=== PATIENT | female | born 1960 | race Caucasian/White ===

== ENCOUNTER 2024-04-14 10:47 | Inpatient (IN) ==
--- NOTE | 2024-04-14 10:59 | History & Physical Report ---
Date of Service April 14, 2024 Assessment & Plan (1) COPD with acute exacerbation: Plan: COPD with acute exacerbation Arrived on continuous BiPAP 08/23 at 40% VBG 7.36/75/54/42 On Rocephin/azithromycin on arrival for potential superimposed pneumonia with COPD exacerbation from outside hospital. Unable to load the images as an unsupported format, but reports some concern for pneumonia. Ernesto labs and evaluation there is no leukocytosis, procalcitonin is neg ative, and chest x-ray with PA/lateral is without evidence of lobar pneumonia. Patient is with compensated pH with pCO2 of 75 and HCO3 of 42 suggesting severe chronic hypercapnia. Would benefit from PPV at bedtime Scattered wheezing on admission Patient received ceftriaxone, azithromycin, and 125 mg of methylprednisolone at approximately 6 AM on 04/14/2024 at OSH. Continue azithromycin, 40 mg methylprednisolone daily Flutter valve, incentive spirometry, SpO2 goal greater than 90%, BiPAP as needed. Trelegy converted to formulary equivalent Does not show significant pulmonary edema/volume overload. Lactate is downtrending from OSH, but still elevated; additional liter of fluid given. Lactate trended She reports that she has been a smoker of 1 pack/day, has recently cut down t rying to quit. Would like a patch. Ordered (2) History of pulmonary embolism: Plan: History of PE. She is on Eliquis with which she is compliant and reports took her last dose morning of 04/14/2024 (3) DM2 (diabetes mellitus, type 2): Plan: Metforminheld Hyperglycemic. No insulin documented as given at OSH, did receive steroids Basal bolus insulin ordered with first dose of both at time of admit. Goal BSG [id number] Pharmacy glycemic consult placed for hyperglycemia with steroid use (4) Anxiety and depression: Plan: Continue bupropion/Lexapro Plan DVT prophylaxis: Anticoagulated Diet: N.p.o. until able to be taken off BiPAP, then type II DM/heart healthy Disposition: PCU CODE STATUS: Full code History of Present Illness Edna is a 63-year-old female who was accepted as a transfer overnight from [facility] for acute COPD exacerbation. Do not have records available for review. Did call [facility] day of transfer to review case. Per nursing report patient is 63-year-old with a history of chronic hypoxic respiratory failure, past PE on Eliquis who presented with 2 days of increased cough and shortness of breath. She required BiPAP at 10/535%. COVID/Flu negative. Suspected [facility] COPD exacerbation. They are not able to keep patients on BiPAP at that facility and so was recommended for transfer to our facility. At time of morning signout patient blood pressure had improved from 96/76 to 116/64. Lactate was 2.6 initially, repeat 2.2 at 905. BNP 91, high sensitive troponin 21. COVID and flu were negative. Chest x-ray was pending. Patient was on empiric ceftriaxone/azithromycin. Complete records pending fax for review Per Record Review: Past medical history: COPD Past medications reviewed: Albuterol, bupropion 300 mg XL daily, Eliquis 5 mg twice daily, Lexapro 20 mg daily, Lasix 80 mg twice daily, melatonin 3 mg nightly, metformin 500 mg twice daily, prednisone 40 mg daily with unclear duration/taper, Trelegy 100 mcg62.5 mcg - 25 mcg/puff, 1 inhalation daily Approximate 1 pack/day cigarette use x 50 years. No reported alcohol use 63yo F who presented to [facility] with 2 days of progressive dyspnea without chest pain, fever, or chills. Past hx of COPD on Trelegy/albuterol and chronic home oxygen, DVT/PE on eliquis and anxiety/depression. EKG at [place]: Rate 87, sinus, no ST/T changes. CXR: Suspected right lower lobe infiltrate on CXR, given rocephin and azithromycin in ER. Pt clinically improved following abx and fluids, but still required 10/5 35% bipap. Pt declined [facility], preferred [facility] ot [facility]. [facility] with no capacity. Confirmed patient recieved AM meds including eliquis 5mg, and rocephin/azithromycin at ~0600am 04/14/24. Per Patient: Seen at bedside. On continuous bipap. NOndistressed. 114/41, 84bpm, 95% on 10/5 @ 40% at bedside asessment. BSG POC 314. 93.7kg She reports that she had around 2 or 3 days of increased cough, shortness of breath, and dark sputum production. Endorses wheezing. She denies fever, chills, sweats. No lightheadedness/dizziness. She has been taking her blood thinner for a past PE, she reports she took a dose of this this morning. She has not had any pain with breathing. Denies chest pain. She reports she feels greatly improved at time of bedside assessment on BiPAP. She endorses history of COPD. She is a somewhat poor historian of her meds, but endorses that she takes albuterol, Eliquis, bupropion, cetirizine, Lexapro, Trelegy, Lasix, metformin at home. She is not sure if she has a history of heart failure or not but she does take Lasix twice daily at home. Denies alcohol use Medical History: Reviewed Medications: Reviewed Surgical History: Reviewed Family history: Reviewed Allergies: Reviewed Social: No alcohol. Endorses that she was around 10 cigarettes to pack per day tobacco user, has cut down and stop smoking since being sick. Would like a patch Code Status: Full Allergies Allergy/AdvReac Type Severity Reaction Status Date / Time venom-honey bee Allergy Itching Verified 04/14/24 13:08 Home Medications Medication Instructions Recorded Confirmed Type albuterol sulfate 90 mcg/actuation 1 puff inhalation Q6H PRN Wheezing 04/14/24 04/14/24 History aerosol inhaler apixaban 5 mg tablet (Eliquis) 5 mg PO BID 04/14/24 04/14/24 History bupropion HCl 300 mg 24 hr tablet, 300 mg PO DAILY 04/14/24 04/14/24 History extended release cetirizine 10 mg tablet 10 mg PO DAILY 04/14/24 04/14/24 History escitalopram oxalate 20 mg tablet 20 mg PO DAILY 04/14/24 04/14/24 History fluticasone fur. 100 mcg-umeclid 1 inh inhalation DAILY 04/14/24 04/14/24 History 62.5 mcg-vilant 25 mcg inhalat.powder (Trelegy Ellipta) furosemide 80 mg tablet 80 mg PO BID 04/14/24 04/14/24 History melatonin 3 mg tablet 3 mg PO HS PRN Sleep 04/14/24 04/14/24 History metformin 500 mg tablet 500 mg PO BID 04/14/24 04/14/24 History Past Med/Surg History Problem List (Updated 04/14/24 @ 14:48 by Jet Gregory MD) Anxiety and depression DM2 (diabetes mellitus, type 2) History of pulmonary embolism COPD with acute exacerbation Social History (Updated 04/14/24 @ 14:57 by Jet Gregory MD) Smoking Status: Former smoker Tobacco Type: Cigarettes Hx Alcohol Use: No Hx Substance Use: No Preferred Language: Lao [employer] Required: No Beliefs That Will Affect Care: None Current Living Situation: Other Feels Safe at Home: Yes Assistive Devices: Oxygen - Continuous and Walker Physical Exam Physical Exam: General: A&Ox3. NAD. Cooperative. HEENT: Atraumatic, normocephalic. Vision/hearing intact Pulm: On BiPAP. Diminished with diffuse wheezes symmetrical chest rise. No increased work of breathing. No respiratory distress. Cardiac: RRR, -mrg. Radial pulses intact and symmetrical. Abdominal: Softly distended. Nontender. No rebound/guarding PG Care Time/CCT Total # of Minutes Spent Total Time Spent with Patient: Total time spent is greater than 50% in coordination of care (as documented) at patient's floor/unit and/or counseling patient: Coding Level of Care Code 37532 INT INP/OBS CARE MIN Diagnoses COPD with acute exacerbation J44.1 History of pulmonary embolism Z86.711 DM2 (diabetes mellitus, type 2) E11.9 Anxiety and depression F41.9; F32.A
[2024-04-14] MEDS ORDERED: Patient's ALLERGY Info needs ENTERED ONE (11:15)
--- OUTSIDE RECORDS SUMMARY | 2024-04-14 12:51 | External Medical Summary | Summary of Care ---
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 Diabetic Foot Exam 02/12/2025 02/13/2024 CKD PHOS USE SMARTSET 66941 03/09/202502/18, 12/19/2023, 09/12/2023, Additional history exists CKD HGB USE SMARTSET 62469 03/11/202503/11, 03/10/2024, 03/09/2024, Additional history exists O2 ASSESSMENT COMPLETED IN PAST YEAR FOR COPD 03/25/2025 03/25/2024 Lipid Panel 04/19/2027 04/19/2022, 12/21, 01/21/2021, Additional history exists Cervical Cancer Screening Discontinued Pap Smear Discontinued 10/10/2016, 10/21, 11/17/2013, Additional history exists Pneumococcal Vaccine: 65+ Years Completed 05/10/2022, 11/17/2013 Lung Cancer Screening Completed 09/09/2023 , 05/22/2023, 12/15/2022, Additional history exists Influenza Vaccine (FLU shot) Completed 09/13/2023, 09/10/2019, 11/20/2017, Additional history exists GARDASIL-HPV IMMUNIZATION SERIES Aged Out No longer eligible based on patient's age to complete this topic HPV/Co-Test Discontinued Hepatitis B Aged Out No longer eligi ble based on patient's age to complete this topic MENINGOCOCCAL (MENACTRA/MENVEO) Aged Out No longer eligible based on patient's age to complete this topic documented as of this encounter Medical Devices Implanted Type Area Operations Engineer Device Identifier Shelf Expiration Date Model / Serial / Lot Lens 21.0 Vero - [id number] - [id number] Implanted:Qty: 1 on 03/25/2024 by Andrea Mcclendon, DO at OR [facility] Lens Right: Eye [employer] 06/01/2026 CNA0T0.210 / [id number] / Lens 20.5 [facility] - [id number] - [id number] Implanted:Qty: 1 on 02/26/2024 by Andrea Mcclendon, DO at OR [facility] Left: Eye [employer] 08/25/2026 CNA0T0.205 / [id number] / documented as of this encounter Visit Diagnoses Diagnosis Pseudophakia- Primary Lens replaced by other means documented in this encounter Advance Directives Latest Code Status on File Code Status Date Activated Date Inactivated Comments Full Code 03/25/2024 7:04 AM 03/25/2024 1:54 PM Question Answer Comments Discussion of Advance Directives occurred with: Not Discussed due to patient's condition Code Status History Code Status Date Activated Date Inactivated Comments Full Code 03/08/2024 6:07 PM 03/11/2024 5:39 PM This order reflects the patients wishes and were consensually agreed upon. Question Answer Comments Discussion of Advance Directives occurred with: Patient Does the patient have a Living Will? No Does the patient have Health Care Power of Silk Screen Printer? No Full Code 02/26/2024 9:19 AM 02/26/2024 4:21 PM Question Answer Comments Discussion of Advance Directives occurred with: Not Discussed due to patient's condition Limited Code 12/19/2023 4:26 PM 12/23/2023 5:26 PM This o rder reflects the patients wishes and were consensually agreed upon. Question Answer Comments Discussion of Advance Directives occurred with: Patient Does the patient have a Living Will? No Does the patient have Health Care Power of Silk Screen Printer? No Bag Valve Device? Yes Intubation? No Cardiac Compressions? Yes Defibrillation? Yes Synchronized Cardioversion? Yes External Pacemaker? Yes Cardiac Drugs? Yes Full Code 09/08/2023 4:44 PM 09/13/2023 8:48 PM Thi s order reflects the patients wishes and were consensually agreed upon. Question Answer Comments Discussion of Advance Directives occurred with: Patient Healthcare Agents on File Name Relationship Healthcare Agent [facility] p Communication Martinez GRIGSBY Adult Child First Alternate Health Care Agent Peter Seb Adult Child First Alternate Health Care Agent Jazmine Corona Adult Child First Alternate Health Care Agent Care Teams Solar Electric/Photovoltaic Installer Relationship Specialty Start Date End Date Marcos Maurice PA-C [address] [facility] [place] [address] PCP - General Physician Instructor Business Education 11/22/23 documented as of this encounter
--- OUTSIDE RECORDS SUMMARY | 2024-04-14 12:51 | External Medical Summary | Summary of Care ---
Author Name Unknown Organization [facility] Address [address] [facility] [place] [address] Phone [phone] Care Team Providers Care Taste Tester Name Role Phone Marcos Maurice PA-C Primary Care Provide r Encounter Details Date Type Department Care Team (Late st Contact Info) Description 03/26/2024 Telephone Pratibha Casey [address] [place] [address] [facility]clendon[facility] [address] [facility] [place] [address] Allergies Active Allergy Reactions Criticality Noted Date Comments Cortisone Muscle pain Medium 04/09/2017 At site of shot Bee Venom Anaphylaxis High 06/25/2021 Hydrocortisone High 12/25/2021 Other reaction(s): PAIN,UNABLE TO MOVE documented as of this encounter (statuses as of 03/26/2024) Medications Medication Sig Dispensed Refills Start Date End Date Status Acetaminophen 500 MG Oral Tablet (Tylenol) Take 1 Tablet by mouth every 6 hours as needed. 0 Active oxygen IN GASIndications:COPD, group D, by GOLD 2017 classification (HCC),Chronic hypoxemic respiratory failure (HCC) 2 LPM at bedtime & at rest & 3 LPM with all exertion via n/c DX J 44.9 1 Each 0 07/31/2022 Active Fluticasone Propionate 50 MCG/ACT Nasal Suspension (Flonase) Administer into each nostril 2 Sprays in the morning. 15.8 mL 2 09/22/2022 Active Rosuvastatin Calcium 20 MG Oral Tablet (Crestor)Indications :Cor pulmonale, chronic ([facility]),COPD, group D, by GOLD 2017 classification ([facility]),Hypertensive heart and kidney disease with chronic diastolic congestive heart failure and stage 3a chronic kidney disease ([facility]),Dyslipidemia,E ssential hypertension with goal blood pressure less than 140/90 Take by mouth 1 Tablet in the morning. 90 Tablet 3 09/22/2022 Active Empagliflozin 10 MG Oral Tablet (Jardiance)Indicatio ns:Type 2 diabetes mellitus with stage 3a chronic kidney disease, without long-term current use of insulin ([facility]) Take 1 Tablet by mouth in the morning. 30 Tablet 11 11/22/2022 Active metFORMIN HCl 1000 MG Oral Tablet (Glucophage)Indicati ons:Type 2 diabetes mellitus with stage 3a chronic kidney disease, without long-term current use of insulin ([facility]) Take 1 Tablet by mouth 2 times a day with morning and evening meals. 60 Tablet 5 11/22/2022 Active Azelastine HCl 0.1 % Nasal Solution (Astelin) Administer 1 Mesa into nostril in the morning and 1 Mesa before bedtime. 30 mL 12 01/12/2023 Active Furosemide 80 MG Oral Tablet (Lasix)Indications:G eneralized osteoarthritis,Chron ic diastolic heart failure ([facility]) Take 1 Tablet by mouth [...] and 1 Tablet before bedtime. 60 Tablet 5 01/02/2024 Active traZODone HCl 100 MG Oral Tablet (Desyrel) Take 1 Tablet by mouth at bedtime. 30 Tablet 5 01/02/2024 Active Sertraline HCl 100 MG Oral Tablet (Zoloft)Indications: MARCIE (generalized anxiety disorder),Recurrent major depressive disorder, in partial remission (HCC) Take 1 Tablet by mouth in the morning. 90 Tablet 3 01/02/2024 Active Nicotine 21 MG/24HR Transdermal Patch 24 Hour (Nicoderm CQ)Indications:COPD exacerbation ([facility]),Tobacco use disorder Place 1 Patch over 24 hours topically on the skin in the morning. On upper body/upper arm, change once a day for 6 weeks.. 42 Patch 1 01/18/2024 Active Additional Information Patient not taking.Reported on 03/25/2024 Albuterol Sulfate (2.5 MG/3ML) 0.083% Inhalation Nebulization Solution (Proventil)Indicatio ns:COPD, group D, by GOLD 2017 classification ([facility]) Inhale 1 Vial via nebulizer every 4 hours as needed for Wheezing or Shortness of Breath. 180 mL 01/31/2024 Active Albuterol Sulfate (2.5 MG/3ML) 0.083% Inhalation Nebulization Solution (Proventil)Indicatio ns:COPD, group D, by GOLD 2017 classification ([facility]) Inhale 1 Vial via nebulizer every 4 hours as needed for Wheezing or Shortness of Breath. 180 mL 01/31/2024 Active prednisoLONE Acetate 1 % Ophthalmic [...] as of this encounter (statuses as of 03/26/2024) Active Problems Problem Noted Date Diagnosed Date [...] - TRES o Class D - Inhaled Qczbqtpasosrhe-DWSP-[id number] Combination Inhaler (Trellegy) o PD-4 Inhibitor (Daliresp) [...] Continue eliquis Personal history of pulmonary embolism 2 Overview: 02/28/22 Pulmonary note Pt hospitalized from [...] Assessment & Plan: Continue furosemide. Followed by pulm Chronic hypoxemic respiratory failure 04/21/2021 Last Assessment & Plan: She is wearing 4.5L today, typically wears 3L. No distress. ADALI gave pulse oximeter to monitor SpO2, advised to contact [facility] if <90% and titrate as necessary, Tobacco use disorder 04/21/2021 Last Assessment & Plan: Referral to [facility] for assistance in getting nicoderm patches covered [...] Last Assessment & Plan: Currently followed by railroad passenger agent--not on any antihistamines currently, has follow up [...] as of this encounter (statuses as of 03/26/2024) Resolved Problems Problem Noted Date Diagnosed Date [...] failure and stage 3a chronic kidney disease 04/14/2021/0 02/2024 Last Assessment & Plan: Current Status: [...] - TRES o Class D - Inhaled Lqxospmyljnlfw-SXQY-YRKA Combination Inhaler (Sabihay) o PD-4 Inhibitor (Daliresp) Self-Management plan o Prednisone 40mg daily for 5 days Rx o High frequency nebulizer treatments every 4-6 hours around the clock Exacerbation plan o Prednisone rescue kit Rescue kit given today. Educated on use. Must call [facility] when initiated so further assessment can be made documented as of this encounter (statuses as of 03/26/2024) Immunizations Name Administration Dates Next Due COVID-19 mRNA, LNP-s, No Pre serve, 2-Dose Series (Moderna) 01/28/2021 Pneumococcal Conjugate Vacci ne, 20-valent ([id number]) 05/10/2022 Pneumococcal Polysaccharide PPV23 (Pneumovax) 11/17/2013 Seasonal [...] (15 years old or older) Yes 03/08/20 Cognitive Status Response Date of Assessm ent Because of a physical, menta l, or emotional condition, do you have serious difficulty concentrating, remembering, or making decisions? (5 years old or older) No 03/08/2024 documented as of this encounter Miscellaneous Notes * Telephone Encounter - Letty Hodge OSA - 03/26/2024 8:14 AM EDT Called and spoke to patient since she was unable to come today for her 1 day post op from cataract surgery because she is feeling ill. Pt stated that she is having stomach issues. I asked overall how her eye is feeling, pt said that it is feeling good she is not having any issues. Advised that she should continue wearing her eye shield at bedtime, continue using her drops and tocontact us if she starts have ANY type of issues with her eyes. Offered an appt tomorrow 03/27 at , pt declined as it is too far to travel. Pt verbalized understanding of the instructions that I gave her regarding care. DARCY Fuller 03/26/2024 8:16 AM documented in this encounter Plan of Treatment Upcoming Encounters Date Type Department Care Team (Late st Contact Info) Description 03/28/2024 10:00 AM EDT PulmDiagnostic Pulmonary Function Lab, [facility] [address] [address] [address] [place], Pulm Function Room [address] [place] [address] [address] 03/28/2024 10:30 AM EDT PulmDiagnostic Pulmonary Function Lab, [facility] [address] [facility] [place] [address] [facility], Pulm Function Room 1 [address] [place] [address] 04/02/2024 9:15 AM EDT [facility] [address] [place] [address] [address] Andrea Mcclendon DO [address] [facility] [place] [address] 04/03/2024 9:40 AM EDT Office Visit Pulmonary Medicine [facility] [address] [place] [phone] Chance Zimmerman MD [address] [facility] [place] [address] 04/07/2024 8:30 PM EDT PulmDiagnostic Sleep Lab, [facility] [address] [address] [facility], Sleep Med Night Sleep [address] [place] [address] 04/25/2024 2:15 PM EDT [facility] [address] [place] [address] [address] Andrea Mcclendon DO [address] [facility] [address] [place] [address] 06/18/2024 7:40 AM EDT Office Visit [facility], [address] [place] [address] Piper Cazares DO [address] [place] [address] 07/14/2024 1:00 PM EDT PulmDiagnostic Pulmonary Function Lab, [facility] [address], [place] [address] [place], Pulm Function Room 1 [address] [facility] [address] 07/14/2024 2:00 PM EDT PulmDiagnostic Pulmonary Function Lab, [facility] [address], [place] [address] [facility], Pul Function Room 2 [address] [facility] [address] 07/23/2024 3:20 PM EDT Office Visit Pulmonary Medicine Pratibha Anguiano [address] [place] [phone] Chance Zimmerman MD [address] [place] [address] Health Maintenance Due Date Last Done Comments Alpha-1 Antitrypsin 1976 Cologuard 2003 Sigmoidoscopy 2003 Fecal Occult Blood Test 11/17/2014 11/17/2013 Mammogram 11/27/2018 11/27/2017, 12/0 04/2016, 12/05/2013 Colonoscopy 09/20/2020 09/20/2010 Colorectal Cancer Screening 09/20/2020 *ADVANCE DIRECTIVE NOT ON FILE 04/29/2022 Albumin/Creatinine Ratio 02/03/2023 02/03/2022, 06/19 COVID-19 Vaccine (2 - season) 2023 01/28/2021 DXA Scan 2023 DTaP,Tdap,and Td Vaccines (2 - Td or Tdap) 11/17/2023 11/17/2013 Zoster Vaccines (2 of 2) 05/13/2024 03/18/2024 HbA1c 06/19/2024 12/20/2023, 08/20, 05/22/2023, Additional history exists GFR 09/10/2024 03/11/2024, 02/18, 03/09/2024, Additional history exists DISCUSS TOBACCO CESSATION (REFER TO SMARTSET #3296) 10/15/2024 10/15/2023, 05/31/2023, 01/12/2023, Additional history exists Diabetic Eye Exam 12/10/2024 12/10/2023, , 12/10/2023, Additional history exists Diabetic Foot Exam 02/12/2025 02/13/2024 CKD PHOS USE SMARTSET 65976 03/09/202502/18, 12/19/2023, 09/12/2023, Additional history exists CKD HGB USE SMARTSET 53136 03/11/202503/11, 03/10/2024, 03/09/2024, Additional history exists O2 [...] this encounter Medical Devices Implanted Type Area Practice Administrator Device Identifier Shelf Expiration Date Model / Serial / Lot Lens 21.0 [place] - [id number] - [id number] Implanted:Qty: 1 on 03/25/2024 by Andrea Mcclendon, DO at OR [facility] Lens Right: Eye [employer] 06/01/2026 CNA0T0.210 / [id number] / Lens 20.5 [place] - [id number] - [id number] Implanted:Qty: 1 on 02/26/2024 by Andrea Mcclendon, DO at OR [facility] Left: Eye [employer] 08/25/2026 CNA0T0.205 / [id number] / documented as of this encounter Advance Directives Latest Code Status [...] the patient have Health Care Power of Sailing Master? No Full Code 02/26/2024 9:19 AM 02/26/2024 [...] the patient have Health Care Power of Sailing Master? No Bag Valve Device? Yes Intubation? No Cardiac Compressions? Yes Defibrillation? Yes Synchronized Cardioversion? Yes External Pacemaker? Yes Cardiac Drugs? Yes Full Code 09/08/2023 4:44 PM 09/13/2023 8:48 PM Thi s order reflects the patients wishes and were consensually agreed upon. Question Answer Comments Discussion of Advance Directives occurred with: Patient Healthcare Agents on File Name Relationship Healthcare Agent Relationshi p Communication Martinez MEGAN Adult Child First Alternate Health Care Agent Peter Grigsby Adult Child First Alternate Health Care Agent Jazmine Corona Adult Child First Alternate Health Care Agent Care Teams Taste Tester Relationship Specialty Start Date End Date Marcos Maurice PA-C [address] [facility] [place] [address] PCP - General Physician Safety Instructor 11/22/23 documented as of this encounter
--- OUTSIDE RECORDS SUMMARY | 2024-04-14 12:51 | External Medical Summary | Summary of Care ---
Author Name Unknown Organization [facility] Address [address] [place] [address] Phone [phone] Care Team Providers Care Salesperson Jewelry Name Role Phone Marcos Maurice PA-C Primary Care Provide r Reason for Visit * Reason Onset Date Comments Home Health 01/04/2024 Encounter Details Date Type Department Care Team (Late st Contact Info) Description 01/04/2024 Telephone Family Practice [place] Osei Dasilva [address] [place] [address] Marcos Maurice PA-C [address] [facility] [place] [address] Home Health Allergies Active Allergy Reactions Criticality Noted Date Comments Cortisone Muscle pain Medium 04/09/2017 At site of shot Bee Venom Anaphylaxis High 06/25/2021 Hydrocortisone High 12/25/2021 Other reaction(s): PAIN,UNABLE TO MOVE documented as of this encounter (statuses as of 04/04/2024) Medications Medication Sig Dispensed Refills Start Date [...] Active Rosuvastatin Calcium 20 MG Oral Tablet (Crestor)Indications: Cor pulmonale, chronic ([facility]),COPD, group D, by GOLD 2017 classification ([facility]),Hypertensive heart and kidney disease with chronic diastolic congestive heart failure and stage 3a chronic kidney disease ([facility]),Dyslipidemia,Es sential hypertension with goal blood pressure less than 140/90 Take by mouth 1 Tablet in the morning. 90 Tablet 3 09/22/2022 Active Empagliflozin 10 MG Oral Tablet (Jardiance)Indication s:Type 2 diabetes mellitus with stage 3a chronic kidney disease, without long-term current use of insulin ([facility]) Take 1 Tablet by mouth in the morning. 30 Tablet 11 11/22/2022 Active metFORMIN HCl 1000 MG Oral Tablet (Glucophage)Indicatio ns:Type 2 diabetes mellitus with stage 3a chronic kidney disease, without long-term current use of insulin ([facility]) Take 1 Tablet by mouth 2 times a day with morning and evening meals. 60 Tablet 5 11/22/2022 Active Azelastine HCl 0.1 % Nasal Solution (Astelin) Administer 1 [place] into nostril in the morning and 1 [place] before bedtime. 30 mL 12 01/12/2023 Active Furosemide 80 MG Oral Tablet (Lasix)Indications:Ge neralized osteoarthritis,Chroni c diastolic heart failure ([facility]) Take 1 Tablet by mouth in the morning and 1 Tablet before bedtime. 180 Tablet 3 03/26/2023 Active Potassium Chloride 20 MEQ Oral PacketIndications:Hyp okalemia Take 20 mEq by mouth in the morning. 30 Packet 5 05/30/2023 Active Vitamin D3 50 MCG (1999) Oral CapsuleIndications:Vi tamin D deficiency Take 1 Capsule by mouth in the morning. 90 Capsule 1 06/21/2023 Active Melatonin 3 MG Oral Tablet Take 1 Tablet by mouth at bedtime. 30 Tablet 1 09/17/2023 Active Eliquis 5 MG Oral TabletIndications:Per roxanne history of DVT (deep vein thrombosis) take 1 tablet by mouth every morning and at bedtime 60 Tablet 3 01/02/2024 Active rOPINIRole HCl 2 MG Oral Tablet (Requip)Indications:P rimary insomnia,Restless legs syndrome Take 1 Tablet by mouth in the morning and 1 Tablet before bedtime. 60 Tablet 5 01/02/2024 Active traZODone HCl 100 MG Oral Tablet (Desyrel) Take 1 Tablet by mouth at bedtime. 30 Tablet 5 01/02/2024 Active Sertraline HCl 100 MG Oral Tablet (Zoloft)Indications:G AD (generalized anxiety disorder),Recurrent major depressive disorder, in partial remission (HCC) Take 1 Tablet by mouth in the morning. 90 Tablet 3 01/02/2024 Active Hospital, Clinic, or Other Facility Administered Medication Ordered Dose Route Frequency Start Date End Date Status Albuterol Sulfate (Proventil) (5 MG/ML) 0.5% *conc* inhalation solution 2.5 mgIndications:COPD, severe (HCC) 2.5 mg NEBULIZER PRN 10/15/2023 10/14/2024 Active documented as of this encounter (statuses as of 04/04/2024) Active Problems Problem Noted Date Diagnosed Date [...] - TRES o Class D - Inhaled Imdavqwndofryf-NAWO-OLLK Combination Inhaler (Sabihay) o PD-4 Inhibitor (Daliresp) [...] oximeter to monitor SpO2, advised to contact [facility] if <90% and titrate as necessary, Tobacco use disorder 04/21/2021 Last Assessment & Plan: Referral to [employer] for assistance in getting nicoderm patches covered [...] Last Assessment & Plan: Currently followed by post secondary professional--not on any antihistamines currently, has follow up [...] as of this encounter (statuses as of 04/04/2024) Resolved Problems Problem Noted Date Diagnosed Date [...] failure and stage 3a chronic kidney disease 04/14/202102/2024 Last Assessment & Plan: Current Status: "Stable" [...] - TRES o Class D - Inhaled Yahkjgytkczccs-JMQA-FHWP Combination Inhaler (Trellegy) o PD-4 Inhibitor (Daliresp) Self-Management plan o Prednisone 40mg daily for 5 days Rx o High frequency nebulizer treatments every 4-6 hours around the clock Exacerbation plan o Prednisone rescue kit Rescue kit given today. Educated on use. Must call [facility] when initiated so further assessment can be made documented as of this encounter (statuses as of 04/04/2024) Immunizations Name Administration Dates Next Due COVID-19 mRNA, LNP-s, No Pre serve, 2-Dose Series (Moderna) 01/28/2021 Pneumococcal Conjugate Vacci ne, 20-valent ([id number]) 05/10/2022 Pneumococcal Polysaccharide PPV23 (Pneumovax) 11/17/2013 Seasonal Influenza, PF, 6 M & above, IM , (FluLaval or Fluzone) 09/10/2019,11/20/2017 Seasonal Influenza, Quadriva lent Hd (Fluzone Hd) 09/13/2023 Seasonal Influenza, Quadriva lent, No Preserve, IM 10/10/2016 10/10/2017 Seasonal Influenza, Split, I IV3, With Preserve, Inj 08/20/2015,06/27/2014,11/17/2013 11/17/2014 TDAP (age 10 and older)(Boostrix) 11/17/2013 documented as of this encounter Social History Tobacco Use Types Packs/Day Years Used Date Smoking Tobacco: Some Days Cigarettes 1 50 Started: [birth year]/28/1973; Last attempted to quit: 11/28/2023 Passive Smoke Exposure: Past Smokeless Tobacco: Never Alcohol Use Standard Drinks/Week Comments No 0 [...] you have serious difficulty h earing? No 12/19/2023 Are you blind or do you have serious difficulty seeing, even when wearing glasses? No 12/19/2023 Do you have serious difficul ty walking or climbing stairs? (5 years old or older) Yes-stairs 12/19/2023 Do you have difficulty dress ing or bathing? (5 years old or older) No 12/19/2023 Because of a physical, menta l, or emotional condition, do you have difficulty doing errands alone such as visiting a doctor s office or shopping? (15 years old or older) Yes 12/19/19 24 Cognitive Status Response Date of Assessm ent Because of a physical, menta l, or emotional condition, do you have serious difficulty concentrating, remembering, or making decisions? (5 years old or older) No 12/19/2023 documented as of this encounter Miscellaneous Notes * Telephone Encounter - Amaris Hackett LPN - 01/04/2024 2:01 PM EST HH Concerns SAGE Saenz, Calling from: [facility] Report/Concerns of: Weight concern. Symptoms: none Vitals: T 97.4 P 110 RR 20 BP 110/56 SP O2 92% at 4 LPM Lung sounds Clear but diminished. Weight see below. Blood sugar 100 fasting. Narrative: On 12/28/23 another nurse recorded the pt's weight as 180 lbs. Pt made Letty aware that the nurse did not use a scale that day. Pt's weight today using a scale was 198.4. Made Letty aware of the pt's past to weights from the office visits noted. Reports that the pt's BLE have trace edema "if you want to even call it that." Letty will write this up as a discrepancy. FYI. documented in this encounter Plan of Treatment Upcoming Encounters Date Type Department Care Team (Late st Contact Info) Description 04/07/2024 8:30 PM EDT PulmDiagnostic Sleep Lab, [facility] [address] [facility] [address] [facility], Sleep Med Night Sleep [address] [place] [address] 04/25/2024 2:15 PM EDT [facility] [address] [place] [address] Andrea Mcclendon [facility] [address] [facility] [address] 06/18/2024 7:40 AM EDT Office Visit [facility] Osei Dasilva [address] [place] [address] Piper Cazares DO [address] [place] [address] 07/14/2024 1:00 PM EDT PulmDiagnostic Pulmonary Function Lab, [facility] [address] [facility] [place] [address] [facility], Pulm Function Room 1 [address] [place] [address] 07/14/2024 2:00 PM EDT PulmDiagnostic Pulmonary Function Lab, [facility] [address] [place] [address] [place], Pulm Function Room 2 [address] [place] [address] 07/23/2024 3:20 PM EDT Office Visit Pulmonary Medicine [facility] [place] [address] [place] [phone] Chance Zimmerman MD [address] [place] [address] Health Maintenance Due Date Last Done Comments Alpha-1 Antitrypsin 1976 Cologuard 2003 Sigmoidoscopy 2003 Fecal Occult Blood Test 11/17/2014 11/17/2013 Mammogram 11/27/2018 11/27/2017, 04/2016, 12/05/2013 Colonoscopy 09/20/2020 09/20/2010 Colorectal Cancer [...] exists DISCUSS TOBACCO CESSATION (REFER TO SMARTSET #3488) 10/15/2024 10/15/2023, 05/31/2023, 01/12/2023, Additional history exists Diabetic Eye Exam 12/10/2024 12/10/2023, , 12/10/2023, Additional history exists Diabetic Foot Exam 02/12/2025 02/13/2024 CKD PHOS USE SMARTSET 00671 03/09/202502/18, 12/19/2023, 09/12/2023, Additional history exists CKD HGB USE SMARTSET 33603 03/11/202503/11, 03/10/2024, 03/09/2024, Additional history exists O2 [...] this encounter Medical Devices Implanted Type Area Electrical Wirer Device Identifier Shelf Expiration Date Model / Serial / Lot Lens 21.0 [employer] - [id number] - [id number] Implanted:Qty: 1 on 03/25/2024 by Andrea Mcclendon DO at OR [facility] Lens Right: Eye [employer] 06/01/2026 CNA0T0.210 / [id number] / Lens 20.5 [place] - [id number] - [id number] Implanted:Qty: 1 on 02/26/2024 by Andrea Mcclendon DO at OR [facility] Left: Eye [employer] 08/25/2026 CNA0T0.205 / [id number] / documented as of this encounter Additional Health Concerns Infection Onset Date Last Indicated Resolved Time Respiratory Rule-Out 03/08/2024 03/08/202403/08/2 024 1:25 PM EDT COVID-19 Rule-Out 03/08/2024 03/08/2024 03/08/2024 1:25 PM EDT documented as of this encounter Advance Directives [...] the patient have Health Care Power of Grinding Mill Operator? No Full Code 02/26/2024 9:19 AM 02/26/2024 [...] the patient have Health Care Power of Grinding Mill Operator? No Bag Valve Device? Yes Intubation? No Cardiac Compressions? Yes Defibrillation? Yes Synchronized Cardioversion? Yes External Pacemaker? Yes Cardiac Drugs? Yes Full Code 09/08/2023 4:44 PM 09/13/2023 8:48 PM Thi s order reflects the patients wishes and were consensually agreed upon. Question Answer Comments Discussion of Advance Directives occurred with: Patient Healthcare Agents on File Name Relationship Healthcare Agent Relationshi p Communication Martinez GRIGSBY Adult Child First Alternate Health Care Agent Peter Grigsby Adult Child First Alternate Health Care Agent Jazmine Corona Adult Child First Alternate Health Care Agent Care Teams Salesperson Jewelry Relationship Specialty Start Date End Date Marcos Maurice PA-C [address] [facility] [place] [address] PCP - General Physician Engineer Assistant 11/22/23 documented as of this encounter
--- OUTSIDE RECORDS SUMMARY | 2024-04-14 12:51 | External Medical Summary | Summary of Care ---
Author Name Unknown Organization [facility] Address [address] [place] [address] Phone [phone] Care Team Providers Care Interlocker Name Role Phone JosafatMameananda Caldwell PA-C Primary Care Provide r Reason for Visit * Reason Onset Date Comments Follow Up 04/11/2024 COPD [facility] Encounter Details Date Type Department Care Team (Late st Contact Info) Description 04/11/2024 Telephone Pulmonary Function Lab, [address] [address] Debra Larsen, MANAGER CARD Follow Up (COPD [facility] ) Allergies Active Allergy Reactions Criticality Noted Date Comments Cortisone Muscle pain Medium 04/09/2017 At site of shot Bee Venom Anaphylaxis High 06/25/2021 Hydrocortisone High 12/25/2021 Other reaction(s): PAIN,UNABLE TO MOVE documented as of this encounter (statuses as of 04/11/2024) Medications Medication Sig Dispensed Refills Start Date End Date Status Acetaminophen 500 MG Oral Tablet (Tylenol) Take 1 Tablet by mouth every 6 hours as needed. Active oxygen IN GASIndications:COPD, group D, by GOLD 2017 classification (HCC),Chronic hypoxemic respiratory failure (HCC) 2 LPM at bedtime & at rest & 3 LPM with all exertion via n/c DX J 44.9 1 Each 07/31/2022 Active Fluticasone Propionate 50 MCG/ACT Nasal Suspension (Flonase) Administer into each nostril 2 Sprays in the morning. 15.8 mL 2 09/22/2022 Active Rosuvastatin Calcium 20 MG Oral Tablet (Crestor)Indications :Cor pulmonale, chronic ([facility]),COPD, group D, by GOLD 2017 classification ([facility]),Hypertensive heart and kidney disease with chronic diastolic congestive heart failure and stage 3a chronic kidney disease ([facility]),Dyslipidemia,E ssential hypertension with goal blood pressure less than 140/90 Take by mouth 1 Tablet in the morning. 90 Tablet 3 09/22/2022 Active Empagliflozin 10 MG Oral Tablet (Jardiance)Indicatio ns:Type 2 diabetes mellitus with stage 3a chronic kidney disease, without long-term current use of insulin ([facility]) Take 1 Tablet by mouth in the morning. 30 Tablet 11 11/22/2022 Active metFORMIN HCl 1000 MG Oral Tablet (Glucophage)Indicati ons:Type 2 diabetes mellitus with stage 3a chronic kidney disease, without long-term current use of insulin ([facility]) Take 1 Tablet by mouth 2 times a day with morning and evening meals. 60 Tablet 5 11/22/2022 Active Azelastine HCl 0.1 % Nasal Solution (Astelin) Administer 1 [place] into nostril in the morning and 1 [place] before bedtime. 30 mL 12 01/12/2023 Active Furosemide 80 MG Oral Tablet (Lasix)Indications:G eneralized osteoarthritis,Chron ic diastolic heart failure ([facility]) Take 1 Tablet by mouth [...] Tablet by mouth at bedtime. 30 Tablet 01/02/2024 Active Sertraline HCl 100 MG Oral [...] ns:COPD, group D, by GOLD 2017 classification ([facility]) Inhale 1 Vial via nebulizer every 4 hours as needed for Wheezing or Shortness of Breath. 180 mL 01/31/2024 Active Albuterol Sulfate (2.5 MG/3ML) 0.083% Inhalation Nebulization Solution (Proventil)Indicatio ns:COPD, group D, by GOLD 2017 classification ([facility]) Inhale 1 Vial via nebulizer every 4 hours as needed for Wheezing or Shortness of Breath. 180 mL 01/31/2024 Active Erythromycin 5 MG/GM Ophthalmic Ointment Instill 0.25 Inches into both eyes at bedtime. 3.5 g 11 03/05/2024 Active Additional Information Patient not taking.Reported on 03/20/2024 Benzonatate 100 MG Oral Capsule (Tessalon Perles) Take 1 Capsule by mouth in the morning and 1 Capsule at noon and 1 Capsule before bedtime. 20 Capsule 03/11/2024 Active Loperamide HCl 2 MG Oral Capsule (Imodium) Take 1 Capsule by mouth every 4 hours as needed for Diarrhea. 30 Capsule 03/11/2024 Active Albuterol Sulfate HFA 108 (90 [...] as of this encounter (statuses as of 04/11/2024) Active Problems Problem Noted Date Diagnosed Date [...] - TRES o Class D - Inhaled Tydpjbpxxilrsc-KBJH-KJIK Combination Inhaler (Trellegy) o PD-4 Inhibitor (Daliresp) [...] oximeter to monitor SpO2, advised to contact [facility] if <90% and titrate as necessary, Tobacco use disorder 04/21/2021 Last Assessment & Plan: Referral to [facility] for assistance in getting nicoderm patches covered [...] Last Assessment & Plan: Currently followed by business area director--not on any antihistamines currently, has follow up [...] as of this encounter (statuses as of 04/11/2024) Resolved Problems Problem Noted Date Diagnosed Date [...] - TRES o Class D - Inhaled Ynlymnrswxctzw-SJGT-EAJQ Combination Inhaler (Trellegy) o PD-4 Inhibitor (Daliresp) Self-Management plan o Prednisone 40mg daily for 5 days Rx o High frequency nebulizer treatments every 4-6 hours around the clock Exacerbation plan o Prednisone rescue kit Rescue kit given today. Educated on use. Must call [facility] when initiated so further assessment can be made documented as of this encounter (statuses as of 04/11/2024) Immunizations Name Administration Dates Next Due COVID-19 mRNA, LNP-s, No Pre serve, 2-Dose Series (Moderna) 01/28/2021 Pneumococcal Conjugate Vacci ne, 20-valent ([id number]) 05/10/2022 Pneumococcal Polysaccharide PPV23 (Pneumovax) 11/17/2013 Seasonal [...] Date Smoking Tobacco: Some Days Cigarettes 1 50.4 Started: 11/28/1973 Passive Smoke Exposure: Past Smokeless [...] encounter Miscellaneous Notes * Telephone Encounter - Debra Larsen, MANAGER CARD - 04/11/2024 1:42 PM EDT 60 day Follow-Up Phone Call Patient Name: Edna Kebede Discharge Date: 03/25/24 Date of Call: 04/11/2024 Time of Call: 1:43 PM Patient successfully contacted? No, LVM requesting a return call. documented in this encounter Plan of Treatment Upcoming Encounters Date Type Department Care Team (Late st Contact Info) Description 04/25/2024 2:15 PM EDT Office Visit Ophthalmology, [place] [address] Andrea Mcclendon DO [place] [address] 06/18/2024 7:40 AM EDT Office Visit [facility] Osei Dasilva [address] [place] [address] Piper Cazares DO [address] [place] [address] 07/14/2024 1:00 PM EDT PulmDiagnostic Pulmonary Function Lab, [facility] [address] [place] [address] Glh, [facility] [address] [facility] [address] 07/14/2024 2:00 PM EDT PulmDiagnostic Pulmonary Function Lab, [facility] [address] [place] [address] Glh, Pulm Function Room 2 [address] [place] [address] 07/23/2024 3:20 PM EDT Office Visit Pulmonary Medicine Pratibha Anguiano [address] [place] [phone] Chance Zimmerman MD [address] [place] [address] Health Maintenance Due Date Last Done Comments Alpha-1 Antitrypsin 1976 Cologuard 2003 Sigmoidoscopy 2003 Fecal Occult Blood Test 11/17/2014 11/17/2013 Mammogram 11/27/2018 11/27/2017, 04/2016, 12/05/2013 Colonoscopy 09/20/2020 09/20/2010 Colorectal Cancer Screening 09/20/2020 *ADVANCE DIRECTIVE NOT ON FILE 04/29/2022 Albumin/Creatinine Ratio 02/03/2023 02/03/2022, 06/19 COVID-19 Vaccine ( - season) 2023 01/28/2021 DXA Scan 2023 DTaP,Tdap,and Td Vaccines (2 - Td or Tdap) 11/17/2023 11/17/2013 Zoster Vaccines (2 of 2) 05/13/2024 03/18/2024 HbA1c 06/19/2024 12/20/2023, 08/20, 05/22/2023, Additional history exists GFR 09/10/2024 03/11/2024, 02/18, 03/09/2024, Additional history exists DISCUSS TOBACCO CESSATION (REFER TO SMARTSET #0118) 10/15/2024 10/15/2023, 05/31/2023, 01/12/2023, Additional history exists Diabetic Eye Exam 12/10/2024 12/10/2023, , 12/10/2023, Additional history exists Diabetic Foot Exam 02/12/2025 02/13/2024 CKD PHOS USE SMARTSET 48261 03/09/2025/11/2023, 12/19/2023, 09/12/2023, Additional history exists CKD HGB USE SMARTSET 61361 03/11/202503/11, 03/10/2024, 03/09/2024, Additional history exists O2 [...] this encounter Medical Devices Implanted Type Area Child And Adolescent Psychologist Device Identifier Shelf Expiration Date Model / Serial / Lot Lens 21.0 [facility] - [id number] - [id number] Implanted:Qty: 1 on 03/25/2024 by Andrea Mcclendon DO at OR [facility] Lens Right: Eye [employer] 06/01/2026 CNA0T0.210 / [id number] / Lens 20.5 [place] - [id number] - [id number] Implanted:Qty: 1 on 02/26/2024 by Andrea Mcclendon DO at OR [place] Left: Eye [employer] 08/25/2026 CNA0T0.205 / [id number] / documented as of this encounter Advance Directives * Full Code (Latest Code Status on File) Date Activated Date Inactivated Comments 03/25/2024 7:04 AM 03/25/2024 1:54 PM Question Answer Comments Discussion of Advance Direct jimbo occurred with: Not Discussed due to patient's condition * Full Code Date Activated Date Inactivated Comments 03/08/2024 6:07 PM 03/11/2024 5:39 PM This order r eflects the patients wishes and were consensually agreed upon. Question Answer Comments Discussion of Advance Directives occurred with: Patient Does the patient have a Living Will? No Does the patient have Health Care Power of Attor aguilar? No * Full Code Date Activated Date Inactivated Comments 02/26/2024 9:19 AM 02/26/2024 4:21 PM Question Answer Comments Discussion of Advance Direct jimbo occurred with: Not Discussed due to patient's condition * Limited Code Date Activated Date Inactivated Comments 12/19/2023 4:26 PM 12/23/2023 5:26 PM This order re flects the patients wishes and were consensually agreed upon. Question Answer Comments Discussion of Advance Directives occurred with: Patient Does the patient have a Living Will? No Does the patient have Health Care Power of Attor aguilar? No Bag Valve Device? Yes Intubation? No Cardiac Compressions? Yes Defibrillation? Yes Synchronized Cardioversion? Yes External Pacemaker? Yes Cardiac Drugs? Yes * Full Code Date Activated Date Inactivated Comments 09/08/2023 4:44 PM 09/13/2023 8:48 PM This order reflects the patients wishes and were consensually agreed upon. Question Answer Comments Discussion of Advance Directives occurred with: Patient Healthcare Agents on File Name Relationship Healthcare Agent Relationshi p Communication Martinez POWERTZ Adult Child First Alternate Health Care Agent Peter Grigsby Adult Child First Alternate Health Care Agent Jazmine Corona Adult Child First Alternate Health Care Agent Care Teams Interlocker Relationship Specialty Start Date End Date Marcos Maurice PA-C [address] [facility] [place] [address] PCP - General Physician Litigation Docket Manager 11/22/23 documented as of this encounter
--- OUTSIDE RECORDS SUMMARY | 2024-04-14 12:51 | External Medical Summary | Summary of Care ---
Author Name Unknown Organization [facility] Address [address] [place] [address] Phone [phone] Care Team Providers Care Breaker Mechanic Name Role Phone JosafatMameananda Caldwell PA-C Primary Care Provide r Reason for Visit * Reason Onset Date Comments Appointment 04/08/2024 Encounter Details Date Type Department Care Team (Late st Contact Info) Description 04/08/2024 Telephone Sleep Lab, [facility] [address] [place] [address] Germaine Barrientos MD [address] [place] [address] Appointment Allergies Active Allergy Reactions Criticality Noted Date Comments Cortisone Muscle pain Medium 04/09/2017 At site of shot Bee Venom Anaphylaxis High 06/25/2021 Hydrocortisone High 12/25/2021 Other reaction(s): PAIN,UNABLE TO MOVE documented as of this encounter (statuses as of 04/08/2024) Medications Medication Sig Dispensed Refills Start Date [...] MG Oral Tablet (Crestor)Indications :Cor pulmonale, chronic ([facility]),COPD, group D, by GOLD 2017 classification ([facility]),Hypertensive heart and kidney disease with chronic diastolic congestive heart failure and stage 3a chronic kidney disease ([facility]),Dyslipidemia,E ssential hypertension with goal blood pressure less than 140/90 Take by mouth 1 Tablet in the morning. 90 Tablet 3 09/22/2022 Active Empagliflozin 10 MG Oral Tablet (Jardiance)Indicatio ns:Type 2 diabetes mellitus with stage 3a chronic kidney disease, without long-term current use of insulin ([facility]) Take 1 Tablet by mouth in the morning. 30 Tablet 11 11/22/2022 Active metFORMIN HCl 1000 MG Oral Tablet (Glucophage)Indicati ons:Type 2 diabetes mellitus with stage 3a chronic kidney disease, without long-term current use of insulin ([facility]) Take 1 Tablet by mouth 2 times a day with morning and evening meals. 60 Tablet 5 11/22/2022 Active Azelastine HCl 0.1 % Nasal Solution (Astelin) Administer 1 [place] into nostril in the morning and 1 [place] before bedtime. 30 mL 12 01/12/2023 Active Furosemide 80 MG Oral Tablet (Lasix)Indications:G eneralized osteoarthritis,Chron ic diastolic heart failure ([facility]) Take 1 Tablet by mouth in the [...] disorder),Recurrent major depressive disorder, in partial remission ([facility]) Take 1 Tablet by mouth in the morning. 90 Tablet 3 01/02/2024 Active Nicotine 21 MG/24HR Transdermal Patch 24 Hour (Nicoderm CQ)Indications:COPD exacerbation ([facility]),Tobacco use disorder Place 1 Patch over 24 hours topically on the skin in the morning. On upper body/upper arm, change once a day for 6 weeks.. 42 Patch 1 01/18/2024 Active Additional Information Patient not taking.Reported on 03/25/2024 Albuterol Sulfate (2.5 MG/3ML) 0.083% Inhalation Nebulization Solution (Proventil)Indicatio ns:COPD, group D, by GOLD 2017 classification ([facility]) Inhale 1 Vial via nebulizer every 4 hours as needed for Wheezing or Shortness of Breath. 180 mL 01/31/2024 Active Albuterol Sulfate (2.5 MG/3ML) 0.083% Inhalation Nebulization Solution (Proventil)Indicatio ns:COPD, group D, by GOLD 2017 classification ([facility]) Inhale 1 Vial via nebulizer every 4 hours as needed for Wheezing or Shortness of Breath. 180 mL 01/31/2024 Active Erythromycin 5 MG/GM Ophthalmic Ointment Instill 0.25 Inches into both eyes at bedtime. 3.5 g 03/05/2024 Active Additional Information Patient not taking.Reported [...] as of this encounter (statuses as of 04/08/2024) Active Problems Problem Noted Date Diagnosed Date [...] - TRES o Class D - Inhaled Qpjtezcyimzwns-UDUQ-IWHV Combination Inhaler (Trellegy) o PD-4 Inhibitor (Daliresp) [...] Assessment & Plan: Continue furosemide. Followed by pulbenjamin Chronic hypoxemic respiratory failure 04/21/2021 Last Assessment & Plan: She is wearing 4.5L today, typically wears 3L. No distress. ADALI gave pulse oximeter to monitor SpO2, advised to contact [place] if <90% and titrate as necessary, Tobacco use disorder 04/21/2021 Last Assessment & Plan: Referral to [employer] for assistance in getting nicoderm patches covered [...] Last Assessment & Plan: Currently followed by risk investigator--not on any antihistamines currently, has follow up [...] as of this encounter (statuses as of 04/08/2024) Resolved Problems Problem Noted Date Diagnosed Date [...] 10/19/2016 Microhematuria 06/14/2016 10/19/2016 RUQ abdominal pain 11/24/201512/08/ 6 HTN, goal below 140/90 11/09/201510/19 Allergic [...] - TRES o Class D - Inhaled Fzvcwhevjjrsow-BZNC-GVHE Combination Inhaler (Trellegy) o PD-4 Inhibitor (Daliresp) Self-Management plan o Prednisone 40mg daily for 5 days Rx o High frequency nebulizer treatments every 4-6 hours around the clock Exacerbation plan o Prednisone rescue kit Rescue kit given today. Educated on use. Must call [facility] when initiated so further assessment can be made documented as of this encounter (statuses as of 04/08/2024) Immunizations Name Administration Dates Next Due COVID-19 mRNA, LNP-s, No Pre serve, 2-Dose Series (Moderna) 01/28/2021 Pneumococcal Conjugate Vacci ne, 20-valent ([id number]) 05/10/2022 Pneumococcal Polysaccharide PPV23 (Pneumovax) 11/17/2013 Seasonal [...] encounter Miscellaneous Notes * Telephone Encounter - Nena Jesus, RPSAKIKO - 04/08/2024 7:46 AM EDT The patient failed to show up for her sleep study appt on 04/07/2021. Attempted to contact the patient after she failed to show last night and her phone went straight to . The tech left a message onher asking her to call in to reschedule her appt documented in this encounter Plan of Treatment Upcoming Encounters Date Type Department Care Team (Late st Contact Info) Description 04/25/2024 2:15 PM EDT Office Visit Ophthalmology, [place] [address] Andrea Mcclendon DO [place] [address] 06/18/2024 7:40 AM EDT Office Visit [facility] [address] [place] [address] Piper Cazares DO [address] [place] [address] 07/14/2024 1:00 PM EDT PulmDiagnostic Pulmonary Function Lab, [facility] [address] [place] [address] Gl, [facility] [address] [facility] [address] 07/14/2024 2:00 PM EDT PulmDiagnostic Pulmonary Function Lab, [facility] [address] [place] [address] Gl, Pulm Function Room [address] [place] [address] 07/23/2024 3:20 PM EDT Office Visit Pulmonary Medicine [facility] [address] [place] [phone] Chance Zimmerman MD [address] [place] [address] Health Maintenance Due Date Last Done Comments [...] exists DISCUSS TOBACCO CESSATION (REFER TO SMARTSET #6626) 10/15/2024 10/15/2023, 05/31/2023, 01/12/2023, Additional history exists Diabetic Eye Exam 12/10/2024 12/10/2023, , 12/10/2023, Additional history exists Diabetic Foot Exam 02/12/2025 02/13/2024 CKD PHOS USE SMARTSET 87775 03/09/202502/18, 12/19/2023, 09/12/2023, Additional history exists CKD HGB USE SMARTSET 27480 03/11/202503/11, 03/10/2024, 03/09/2024, Additional history exists O2 [...] this encounter Medical Devices Implanted Type Area Carriage Rider Device Identifier Shelf Expiration Date Model / Serial / Lot Lens 21.0 [employer] - [id number] - [id number] Implanted:Qty: 1 on 03/25/2024 by Andrea Mcclendon DO at OR [facility] Lens Right: Eye [employer] 06/01/2026 CNA0T0.210 / [id number] 164 / Lens 20.5 [place] - [id number] - [id number] Implanted:Qty: 1 on 02/26/2024 by Ensor, Andrea M, DO at OR [facility] Left: Eye [employer] 08/25/2026 CNA0T0.205 / [id number] / documented as of this encounter [...] First Alternate Health Care Agent Care Teams Breaker Mechanic Relationship Specialty Start Date End Date Marcos Maurice PA-C [address] [facility] [place] [address] PCP - General Physician Crew Chief 11/22/23 documented as of this encounter
--- OUTSIDE RECORDS SUMMARY | 2024-04-14 12:51 | External Medical Summary | Summary of Care ---
Author Name Unknown Organization [facility] [address] [place] [address] Phone [phone] Care Team Providers Care Director Fraud Name Role Phone Marcos Maurice PA-C Primary Care Provide r Reason for Visit * Reason Onset Date Comments Appointment 04/06/2024 Encounter Details Date Type Department Care Team (Late st Contact Info) Description 04/06/2024 Telephone Sleep Lab, [address] [address] Appointments, Patient Appointment Allergies Active Allergy Reactions Criticality Noted Date Comments Cortisone Muscle pain Medium 04/09/2017 At site of shot Bee Venom Anaphylaxis High 06/25/2021 Hydrocortisone High 12/25/2021 Other reaction(s): PAIN,UNABLE TO MOVE documented as of this encounter (statuses as of 04/06/2024) Medications Medication Sig Dispensed Refills Start Date [...] Tablet (Crestor)Indications :Cor pulmonale, chronic ([facility]),COPD, group D, by GOLD 2017 classification ([facility]),Hypertensive heart and kidney disease with chronic diastolic congestive heart failure and stage 3a chronic kidney disease ([facility]),Dyslipidemia,E ssential hypertension with goal blood pressure less than 140/90 Take by mouth 1 Tablet in the morning. 90 Tablet 3 09/22/2022 Active Empagliflozin 10 MG Oral Tablet (Jardiance)Indicatio ns:Type 2 diabetes mellitus with stage 3a chronic kidney disease, without long-term current use of insulin ([facility]) Take 1 Tablet by mouth in the morning. 30 Tablet 11 11/22/2022 Active metFORMIN HCl 1000 MG Oral Tablet (Glucophage)Indicati ons:Type 2 diabetes mellitus with stage 3a chronic kidney disease, without long-term current use of insulin ([facility]) Take 1 Tablet by mouth 2 times a day with morning and evening meals. 60 Tablet 5 11/22/2022 Active Azelastine HCl 0.1 % Nasal Solution (Astelin) Administer 1 [place] into nostril in the morning and 1 [place] before bedtime. 30 mL 12 01/12/2023 Active Furosemide 80 MG Oral Tablet (Lasix)Indications:G eneralized osteoarthritis,Chron ic diastolic heart failure ([facility]) Take 1 Tablet by mouth in the [...] D, by GOLD 2017 classification ([facility]) Inhale 1 Vial via nebulizer every 4 hours as needed for Wheezing or Shortness of Breath. 180 mL 11 01/31/2024 Active Albuterol Sulfate (2.5 MG/3ML) 0.083% Inhalation Nebulization Solution (Proventil)Indicatio ns:COPD, group D, by GOLD 2017 classification ([facility]) Inhale 1 Vial via nebulizer every 4 [...] as of this encounter (statuses as of 04/06/2024) Active Problems Problem Noted Date Diagnosed Date [...] - TRES o Class D - Inhaled Vdpzeratnfyqjp-QYJM-ILRB Combination Inhaler (Trellegy) o PD-4 Inhibitor (Daliresp) [...] oximeter to monitor SpO2, advised to contact [facility] if <90% and titrate as necessary, Tobacco use disorder 04/21/2021 Last Assessment & Plan: Referral to [employer] for assistance in getting nicoderm patches covered [...] Last Assessment & Plan: Currently followed by web design specialist--not on any antihistamines currently, has follow up [...] as of this encounter (statuses as of 04/06/2024) Resolved Problems Problem Noted Date Diagnosed Date [...] Diagnostic Review: Recent Labs Units 10/03/22 1356 09/17/22 2018 09/17/22 1416 04/17/22 2107 03/09/22 1355 LEFT VENTRICULAR [...] - TRES o Class D - Inhaled Ctdfoaizmlnyax-BFQE-MTZP Combination Inhaler (Trellegy) o PD-4 Inhibitor (Daliresp) Self-Management plan o Prednisone 40mg daily for 5 days Rx o High frequency nebulizer treatments every 4-6 hours around the clock Exacerbation plan o Prednisone rescue kit Rescue kit given today. Educated on use. Must call [facility] when initiated so further assessment can be made documented as of this encounter (statuses as of 04/06/2024) Immunizations Name Administration Dates Next Due COVID-19 mRNA, LNP-s, No Pre serve, 2-Dose Series (Moderna) 01/28/2021 Pneumococcal Conjugate Vacci ne, 20-valent ([id number]) 05/10/2022 Pneumococcal Polysaccharide PPV23 (Pneumovax) 11/17/2013 Seasonal [...] No 03/08/2024 documented as of this encounter Plan of Treatment Upcoming Encounters Date Type Department Care Team (Late st Contact Info) Description 04/07/2024 8:30 PM EDT PulmDiagnostic Sleep Lab, [facility] [address] [facility] [address] [facility], Sleep Med [facility] [address] [facility] [place] [address] 04/25/2024 2:15 PM EDT [facility] [address] [place] [address] Andrea Mcclendon DO [address] [facility] [address] 06/18/2024 7:40 AM EDT Office Visit [facility] [address], [address] [facility] [place] [address] Piper Cazares DO [address] [facility] [place] [address] 07/14/2024 1:00 PM EDT PulmDiagnostic Pulmonary Function Lab, [facility] [address] [facility] [address] [facility], Pulm Function Room 1 [address] [facility] [address] 07/14/2024 2:00 PM EDT PulmDiagnostic Pulmonary Function Lab, [address] [address] [address], Pulm Function Room 2 [address] [facility] [address] 07/23/2024 3:20 PM EDT Office Visit Pulmonary Medicine [facility] An[facility] [address] [place] [phone] Chance Zimmerman MD [address] [place] [address] Health Maintenance Due Date Last Done Comments [...] exists DISCUSS TOBACCO CESSATION (REFER TO SMARTSET #3291) 10/15/2024 10/15/2023, 05/31/2023, 01/12/2023, Additional history exists Diabetic Eye Exam 12/10/2024 12/10/2023, , 12/10/2023, Additional history exists Diabetic Foot Exam 02/12/2025 02/13/2024 CKD PHOS USE SMARTSET 28685 03/09/202502/18, 12/19/2023, 09/12/2023, Additional history exists CKD HGB USE SMARTSET 00566 03/11/202503/11, 03/10/2024, 03/09/2024, Additional history exists O2 [...] this encounter Medical Devices Implanted Type Area Sock Knitting Machine Operator Device Identifier Shelf Expiration Date Model / Serial / Lot Lens 21.0 [facility] - [id number] - [id number] Implanted:Qty: 1 on 03/25/2024 by Andrea Mcclendon DO at OR [facility] Lens Right: Eye [employer] 06/01/2026 CNA0T0.210 / [id number] 164 / Lens 20.5 [facility] - [id number] - [id number] Implanted:Qty: 1 on 02/26/2024 by Andrea Mcclendon DO at OR [facility] Left: Eye [employer] 08/25/2026 CNA0T0.205 / [id number] / documented as of this encounter [...] First Alternate Health Care Agent Care Teams Director Fraud Relationship Specialty Start Date End Date Marcos Maurice PA-C [address] [facility] [place] [address] PCP - General Physician Lower School Music Teacher 11/22/23 documented as of this encounter
--- OUTSIDE RECORDS SUMMARY | 2024-04-14 12:52 | External Medical Summary | Summary of Care ---
Author Name Unknown Organization [facility] Address [address] [facility] [address] Phone [phone] Care Team Providers Care Histology Manager Name Role Phone Marcos Maurice PA-C Primary Care Provide r Encounter Details Date Type Department Care Team (Late st Contact Info) Description 03/19/2024 Telephone [facility] [address] [facility] [place] [phone] Marcos Maurice PA-C [address] [facility] [place] [address] Allergies Active Allergy Reactions Criticality Noted Date Comments Cortisone Muscle pain Medium 04/09/2017 At site of shot Bee Venom Anaphylaxis High 06/25/2021 Hydrocortisone High 12/25/2021 Other reaction(s): PAIN,UNABLE TO MOVE documented as of this encounter (statuses as of 03/19/2024) Medications Medication Sig Dispensed Refills Start Date [...] Oral Tablet (Crestor)Indications :Cor pulmonale, chronic ([facility]),COPD, group D, by GOLD 2017 classification ([facility]),Hypertensive heart and kidney disease with chronic diastolic congestive heart failure and stage 3a chronic kidney disease ([facility]),Dyslipidemia,E ssential hypertension with goal blood pressure less than 140/90 Take by mouth 1 Tablet in the morning. 90 Tablet 3 09/22/2022 Active Empagliflozin 10 MG Oral Tablet (Jardiance)Indicatio ns:Type 2 diabetes mellitus with stage 3a chronic kidney disease, without long-term current use of insulin ([facility]) Take 1 Tablet by mouth in the morning. 30 Tablet 11 11/22/2022 Active metFORMIN HCl 1000 MG Oral Tablet (Glucophage)Indicati ons:Type 2 diabetes mellitus with stage 3a chronic kidney disease, without long-term current use of insulin ([facility]) Take 1 Tablet by mouth 2 times a day with morning and evening meals. 60 Tablet 5 11/22/2022 Active Azelastine HCl 0.1 % Nasal Solution (Astelin) Administer 1 [place] into nostril in the morning and 1 [place] before bedtime. 30 mL 12 01/12/2023 Active Furosemide 80 MG Oral Tablet (Lasix)Indications:G eneralized osteoarthritis,Chron ic diastolic heart failure ([facility]) Take 1 Tablet by mouth in [...] disorder),Recurrent major depressive disorder, in partial remission ([facility]) Take 1 Tablet by mouth in the morning. 90 Tablet 3 01/02/2024 Active Nicotine 21 MG/24HR Transdermal Patch 24 Hour (Nicoderm CQ)Indications:COPD exacerbation ([facility]),Tobacco use disorder Place 1 Patch over 24 hours topically on the skin in the morning. On upper body/upper arm, change once a day for 6 weeks.. 42 Patch 1 01/18/2024 Active Albuterol Sulfate (2.5 MG/3ML) 0.083% Inhalation Nebulization Solution (Proventil)Indicatio ns:COPD, group D, by GOLD 2017 classification ([facility]) Inhale 1 Vial via nebulizer every 4 hours as needed for Wheezing or Shortness of Breath. 180 mL 01/31/2024 Active Albuterol Sulfate (2.5 MG/3ML) 0.083% Inhalation Nebulization Solution (Proventil)Indicatio ns:COPD, group D, by GOLD 2017 classification ([facility]) Inhale 1 Vial via nebulizer every [...] for 7 days. 10 mL 1 03/05/2024 04/02/2024 Active Erythromycin 5 MG/GM Ophthalmic Ointment Instill 0.25 Inches into both eyes at bedtime. 3.5 g 03/05/2024 Active Benzonatate 100 MG Oral Capsule (Tessalon Perles) Take 1 Capsule by mouth in the morning and 1 Capsule at noon and 1 Capsule before bedtime. 20 Capsule 0 03/11/2024 Active predniSONE 20 MG Oral Tablet (Deltasone) Take 2 Tablets by mouth daily for 1 day, THEN 1 Tablet daily for 3 days, THEN 0.5 Tablet daily for 3 days. 7 Tablet 0 03/12/2024 03/19/2024 Active Loperamide HCl 2 MG Oral Capsule (Imodium) Take 1 Capsule by mouth every 4 hours as needed for Diarrhea. 30 Capsule 0 03/11/2024 Active Albuterol Sulfate HFA 108 (90 Base) MCG/ACT Inhalation Aerosol SolutionIndications: COPD, severe (HCC) Take 2 puffs every four hours as need for shortness of breath or wheezing 18 g 3 03/18/2024 Active buPROPion HCl ER (XL) 300 MG Oral [...] as of this encounter (statuses as of 03/19/2024) Active Problems Problem Noted Date Diagnosed Date [...] - TRES o Class D - Inhaled Xaqnglcyjldrpo-FKLT-PFUY Combination Inhaler (Trellegy) o PD-4 Inhibitor (Daliresp) [...] oximeter to monitor SpO2, advised to contact [facility] if <90% and titrate as necessary, Tobacco use disorder 04/21/2021 Last Assessment & Plan: Referral to [employer] for assistance in getting nicoderm patches [...] Last Assessment & Plan: Currently followed by medical recruiter--not on any antihistamines currently, has follow up [...] as of this encounter (statuses as of 03/19/2024) Resolved Problems Problem Noted Date Diagnosed Date [...] - TRES o Class D - Inhaled Egqtlekhohuftf-JAKZ-RUSR Combination Inhaler (Trellegy) o PD-4 Inhibitor (Daliresp) Self-Management plan o Prednisone 40mg daily for 5 days Rx o High frequency nebulizer treatments every 4-6 hours around the clock Exacerbation plan o Prednisone rescue kit Rescue kit given today. Educated on use. Must call [facility] when initiated so further assessment can be made documented as of this encounter (statuses as of 03/19/2024) Immunizations Name Administration Dates Next Due COVID-19 mRNA, LNP-s, No Pre serve, 2-Dose Series (Moderna) 01/28/2021 Pneumococcal Conjugate Vacci ne, 20-valent ([id number]) 05/10/2022 Pneumococcal Polysaccharide PPV23 (Pneumovax) 11/17/2013 Seasonal [...] Types Packs/Day Years Used Date Smoking Tobacco: Every Day Cigarettes 1 50.3 Started: 11/28/1973 Passive Smoke [...] encounter Miscellaneous Notes * Telephone Encounter - Alem Rivas Ob/Or DARCY - 03/19/2024 11:14 AM EDT Patient calling in to check on the status of previous message. Reason for patient's call: returning call Caller was transferred to [facility] at the nurse line. * Telephone Encounter - Marcos Maurice PA-C - 03/19/2024 9:34 AM EDT Patient had incidental finding on her CT scan which was a 2 cm hypodensity in the right lobe of herliver. I did not have a chance to discuss it with her at her office visit yesterday. Radiology recommended nonemergent outpatient MRI. I attempted to call her this morning, but was unable to reach her. Please offer MRI of the abdomen,and let me know she is agreeable so that I can schedule it. Thank you documented in this encounter Plan of Treatment Upcoming Encounters Date Type Department Care Team (Latest Contact Info) Description 03/25/2024 8:30 AM EDT Hospital Encounter OR [facility], Operating Room, [facility] - 4th Floor [address] [place], [place] [address], [place] [address] Andrea Mcclendon, DO [address] [place] [address] 03/25/2024 8:30 AM EDT - 03/25/2024 9:21 AM EDT Surgery OR [facility], Operating Room, [facility] - 4th Floor [address] [facility] [place] [address] Andrea Mcclendon, DO [address] [place] [address] EXTRACAPSULAR CATARACT REMOVAL WITH INTRAOCULAR LENS 03/26/2024 8:00 AM EDT Office Visit Carmela [place] [address] [place] [address] Andrea Mcclendon, [facility] [place] [address] 04/02/2024 9:15 AM EDT Office Visit Carmela [place] [address] [place] [address] Andrea Mcclendon, [address] [place] [address] 04/03/2024 9:40 AM EDT [facility] [place] [address] [place] [phone] Chance Zimmerman MD [address] [place] [address] 04/07/2024 8:30 PM EDT PulmDiagnostic Sleep Lab, [address] [place] [address] [facility], Sleep Med Night Sleep [address] [place] [address] [place] [address] 04/25/2024 2:15 PM EDT Office Visit Ophthalmology, [place] [address] [place] [address] Andrea Mcclendon DO [address] [place] [address] 06/18/2024 7:40 AM EDT Office Visit [facility], [place] [place] [address] Piper Cazares DO [address] [place] [address] 07/14/2024 1:00 PM EDT PulmDiagnostic Pulmonary Function Lab, [address] [place] [address] [facility], [facility] [address] 07/14/2024 2:00 PM EDT PulmDiagnostic Pulmonary Function Lab, [address] [place] [address] [facility], Pulm Function Room [address] [place], [place] [address] [address] 07/23/2024 3:20 PM EDT Office Visit Pulmonary Medicine [place] [facility]at[facility]ha [place] [address] [place] [phone] Chance Zimmerman MD [address] [place] [address] Scheduled Procedures Name Priority Associated Diagnoses Date/Ti me EXTRACAPSULAR CATARACT REMOV AL WITH INTRAOCULAR LENS Cataract 03/25/2024 8:30 AM EDT Health Maintenance Due Date Last Done Comments Alpha-1 Antitrypsin 1976 Cologuard 2003 Sigmoidoscopy 2003 Fecal Occult Blood Test 11/17/2014 11/17/2013 Mammogram 11/27/2018 11/27/2017, 12/04/2016, 12/05/2013 Colonoscopy 09/20/2020 09/20/2010 Colorectal Cancer Screening [...] history exists Diabetic Foot Exam 02/12/2025 02/13/2024 O2 ASSESSMENT COMPLETED IN PAST YEAR FOR COPD 02/25/2025 02/26/2024 CKD PHOS USE SMARTSET 80071 03/09/202502/18, 12/19/2023, 09/12/2023, Additional history exists CKD HGB USE SMARTSET 84134 03/11/202503/11, 03/10/2024, 03/09/2024, Additional history exists Lipid Panel 04/19/2027 04/19/2022, 12/21, 01/21/2021, Additional [...] this encounter Medical Devices Implanted Type Area Patient Account Analyst Device Identifier Shelf Expiration Date Model / Serial / Lot Lens 20.5 [employer] - [id number] - [id number] Implanted:Qty: 1 on 02/26/2024 by Andrea Mcclendon DO at OR [facility] Left: Eye [employer] 08/25/2026 [id number] / [id number] / documented as of this encounter [...] the patient have Health Care Power of Desizing Machine Offbearer? No Code Status History Code Status Date Activated Date Inactivated Comments Full Code 02/26/2024 9:19 AM 02/26/2024 4:21 [...] the patient have Health Care Power of Desizing Machine Offbearer? No Bag Valve Device? Yes Intubation? No Cardiac Compressions? Yes Defibrillation? Yes Synchronized Cardioversion? Yes External Pacemaker? Yes Cardiac Drugs? Yes Full Code 09/08/2023 4:44 PM 09/13/2023 8:48 PM Thi s order reflects the patients wishes and were consensually agreed upon. Question Answer Comments Discussion of Advance Directives occurred with: Patient Full Code 05/21/2023 5:42 PM 05/25/2023 5:24 PM This or jeannette reflects the patients wishes and were consensually agreed upon. Question Answer Comments Discussion of Advance Directives occurred with: Patient Healthcare Agents on File Name Relationship Healthcare Agent Relationshi p Communication Martinez GRIGSBY Adult Child First Alternate Health Care Agent Peter Grigsby Adult Child First Alternate Health Care Agent Jazmine Corona Adult Child First Alternate Health Care Agent Care Teams Histology Manager Relationship Specialty Start Date End Date Marcos Maurice PA-C [address] [facility] [place] [address] PCP - General Physician Inside Sales Agent 11/22/23 documented as of this encounter
--- OUTSIDE RECORDS SUMMARY | 2024-04-14 12:52 | External Medical Summary ---
Author Name Unknown Address Unknown Organization : Laboratory Report Ordering Provider Test Date Status CLINT STILL 03/25/2024 07:28:37 Final Observation Date Value Abnormality Reference (Units ) Status Glucose Point of Care 03/25/2024 07:28:37 172 Above high normal 70-120 (mg/dL) Final Performing Location
--- OUTSIDE RECORDS SUMMARY | 2024-04-14 12:52 | External Medical Summary | Summary of Care ---
Author Name Unknown Organization [facility] Address [address] [place] [address] Phone [phone] Care Team Providers Care Truck Driver'S Offsider Name Role Phone Marcos Maurice PA-C Primary Care Provide r Reason for Visit * Reason Onset Date Comments Outpatient Testing 03/18/2024 ABG, ambulato ry pulse ox ; please sign ; will need scheduled prior to hospital f/u on 04/03/24. Encounter Details Date Type Department Care Team (Late st Contact Info) Description 03/18/2024 Telephone Pulmonary Rehab, [address] [address] Debra Larsen, TUNNEL KILN REPAIRER Outpatient Testing (ABG, ambulatory pulse ... Allergies Active Allergy Reactions Criticality Noted Date Comments Cortisone Muscle pain Medium 04/09/2017 At site of shot Bee Venom Anaphylaxis High 06/25/2021 Hydrocortisone High 12/25/2021 Other reaction(s): PAIN,UNABLE TO MOVE documented as of this encounter (statuses as of 03/20/2024) Medications Medication Sig Dispensed Refills Start Date [...] MG Oral Tablet (Crestor)Indications :Cor pulmonale, chronic (HCC),COPD, group D, by GOLD 2017 classification ([facility]),Hypertensive heart and kidney disease with chronic diastolic congestive heart failure and stage 3a chronic kidney disease ([facility]),Dyslipidemia,E ssential hypertension with goal blood pressure less than 140/90 Take by mouth 1 Tablet in the morning. 90 Tablet 3 09/22/2022 Active Empagliflozin 10 MG Oral Tablet (Jardiance)Indicatio ns:Type 2 diabetes mellitus with stage 3a chronic kidney disease, without long-term current use of insulin ([facility]) Take 1 Tablet by mouth in the morning. 30 Tablet 11 11/22/2022 Active metFORMIN HCl 1000 MG Oral Tablet (Glucophage)Indicati ons:Type 2 diabetes mellitus with stage 3a chronic kidney disease, without long-term current use of insulin ([facility]) Take 1 Tablet by mouth 2 times a day with morning and evening meals. 60 Tablet 5 11/22/2022 Active Azelastine HCl 0.1 % Nasal Solution (Astelin) Administer 1 [place] into nostril in the morning and 1 [place] before bedtime. 30 mL 12 01/12/2023 Active Furosemide 80 MG Oral Tablet (Lasix)Indications:G eneralized osteoarthritis,Chron ic diastolic heart failure ([facility]) Take 1 Tablet by mouth in the morning and 1 Tablet before bedtime. 180 Tablet 3 03/26/2023 Active Potassium Chloride 20 MEQ Oral PacketIndications:Hy pokalemia Take 20 mEq by mouth in the morning. 30 Packet 5 05/30/2023 Active Vitamin D3 50 MCG (1999) Oral CapsuleIndications:V itamin D deficiency Take 1 [...] Transdermal Patch 24 Hour (Nicoderm CQ)Indications:COPD exacerbation ([facility]),Tobacco use disorder Place 1 Patch over 24 hours topically on the skin in the morning. On upper body/upper arm, change once a day for 6 weeks.. 42 Patch 1 01/18/2024 Active Albuterol Sulfate (2.5 MG/3ML) 0.083% Inhalation Nebulization Solution (Proventil)Indicatio ns:COPD, group D, by GOLD 2017 classification ([facility]) Inhale 1 Vial via nebulizer every 4 hours as needed for Wheezing or Shortness of Breath. 180 mL 01/31/2024 Active Albuterol Sulfate (2.5 MG/3ML) 0.083% Inhalation Nebulization Solution (Proventil)Indicatio ns:COPD, group D, by GOLD 2017 classification ([facility]) Inhale 1 Vial via nebulizer [...] as of this encounter (statuses as of 03/20/2024) Active Problems Problem Noted Date Diagnosed Date [...] - TRES o Class D - Inhaled Jtwbbqjbllbvcd-EASS-TPAM Combination Inhaler (Trellegy) o PD-4 Inhibitor (Daliresp) [...] oximeter to monitor SpO2, advised to contact [facility] if <90% and titrate as necessary, Tobacco use disorder 04/21/2021 Last Assessment & Plan: Referral to [employer] for assistance in getting nicoderm patches [...] Last Assessment & Plan: 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 Educated on use. Must call [facility] when initiated so further assessment can be made documented as of this encounter (statuses as of 03/20/2024) Immunizations Name Administration Dates Next Due COVID-19 mRNA, LNP-s, No Pre serve, 2-Dose Series (Moderna) 01/28/2021 Pneumococcal Conjugate Vacci ne, 20-valent ([id number]) 05/10/2022 Pneumococcal Polysaccharide PPV23 (Pneumovax) 11/17/2013 Seasonal [...] encounter Miscellaneous Notes * Telephone Encounter - Viry Trejo OSA - 03/20/2024 9:50 AM EDT Patient aware and scheduled for ABG/6mw, 03/28/24 starting at 10:00 am. * Telephone Encounter - Chance Zimmerman MD - 03/18/2024 4:26 PM EDT Signed Thank you * Telephone Encounter - Debra Larsen CRT - 03/18/2024 9:31 AM EDT Please sign - ABG- ambulatory pulse ox- f/u hospital discharge documented in this encounter Plan of Treatment Upcoming Encounters Date Type Department Care Team (Latest Contact Info) Description 03/25/2024 8:30 AM EDT Hospital Encounter OR [facility], Operating Room, [facility] - 4th Floor [address] [facility] [place] [address] Andrea Mcclendon, DO [address] [facility] [place] [address] 03/25/2024 8:30 AM EDT - 03/25/2024 9:21 AM EDT Surgery OR [facility], Operating Room, [facility] - 4th Floor [address] [place] [address] Andrea Mcclendon DO [address] [place] [address] EXTRACAPSULAR CATARACT REMOVAL WITH INTRAOCULAR LENS 03/26/2024 8:00 AM EDT Office Visit Carmela [place] [address] [place] [address] Andrea Mcclendon DO [address] [facility] [place] [address] 03/28/2024 10:00 AM EDT PulmDiagnostic Pulmonary Function Lab, [address] [facility] [address] [facility], Pulm Function Room 1 [address] [place] [address] 03/28/2024 10:30 AM EDT PulmDiagnostic Pulmonary Function Lab, [address] [place] [address] [facility], Pulm Function Room 1 [address] [facility] [place] [address] 04/02/2024 9:15 AM EDT Office Visit Carmela [place] [address] [place] [address] Andrea Mcclendon DO 21 [facility] [place] [address] 04/03/2024 9:40 AM EDT Office Visit Pulmonary Medicine [facility] [address] [place] [phone] Chance Zimmerman MD [address] [place] [address] 04/07/2024 8:30 PM EDT PulmDiagnostic Sleep Lab, [address] [place] [address] [facility], Sleep Med Night Sleep [address] [place], [place] [address] [address] 04/25/2024 2:15 PM EDT Office Visit Ophthalmology, [place] [address] [facility] [place] [address] Andrea Mcclendon DO [facility] [address] 06/18/2024 7:40 AM EDT Office Visit [facility], [place] [place] [address] Piper Cazares DO [address] [place] [address] 07/14/2024 1:00 PM EDT PulmDiagnostic Pulmonary Function Lab, [address] [place] [address] [facility], Pulm Function Room [address] [place] [address] [place] [address] 07/14/2024 2:00 PM EDT PulmDiagnostic Pulmonary Function Lab, [address] [place] [address] [facility], Pulm Function Room [address] [place], [place] [address] [address] 07/23/2024 3:20 PM EDT Office Visit Pulmonary Medicine [facility] [address] [place] [phone] Chance Zimmerman MD [address] [place] [address] Scheduled Orders Name Type Priority Associated Diagnoses Orde r Schedule ARTERIAL BLOOD GAS (PULM LAB) Procedures Routine Chronic hypoxemic respiratory failure (HCC) Ordered: 03/18/2024 PULMONARY STRESS TESTING Procedures Routine Chronic hypoxemic respiratory failure (HCC) Ordered: 03/18/2024 Scheduled Procedures Name Priority Associated Diagnoses Date/Ti me EXTRACAPSULAR CATARACT REMOV AL WITH INTRAOCULAR LENS Cataract 03/25/2024 8:30 AM EDT Health Maintenance Due Date Last Done Comments Alpha-1 Antitrypsin 1976 Cologuard 2003 Sigmoidoscopy 2003 Fecal Occult Blood Test 11/17/2014 11/17/2013 Mammogram 11/27/2018 11/27/2017, 1204/2016, 12/05/2013 Colonoscopy 09/20/2020 09/20/2010 Colorectal Cancer Screening [...] exists DISCUSS TOBACCO CESSATION (REFER TO SMARTSET #0684) 10/15/2024 10/15/2023, 05/31/2023, 01/12/2023, Additional history exists Diabetic Eye Exam 12/10/2024 12/10/2023, , 12/10/2023, Additional history exists Diabetic Foot Exam 02/12/2025 02/13/2024 O2 ASSESSMENT COMPLETED IN PAST YEAR FOR COPD 02/25/2025 02/26/2024 CKD PHOS USE SMARTSET 26150 03/09/202502/18, 12/19/2023, 09/12/2023, Additional history exists CKD HGB USE SMARTSET 67848 03/11/202503/11, 03/10/2024, 03/09/2024, Additional history exists Lipid [...] this encounter Medical Devices Implanted Type Area Employee Benefits Manager Device Identifier Shelf Expiration Date Model / Serial / Lot Lens 20.[address] [facility] - [id number] - [id number] Implanted:Qty: 1 on 02/26/2024 by Andrea Mcclendon DO at OR [facility] Left: Eye [employer] 08/25/2026 [id number] / [id number] / documented as of this encounter Visit Diagnoses Diagnosis Combined forms of age-related cataract of right eye- Primary Other and combined forms of senile cataract Chronic hypoxemic respiratory failure (HCC)- Primary Chronic respiratory failure Chronic respiratory failure with hypoxia and hypercapnia (HCC) Cataract Unspecified cataract documented in this encounter Advance Directives Latest Code Status on File Code Status Date Activated Date Inactivated Comments Full Code 03/08/2024 6:07 PM 03/11/2024 5:39 PM This order reflects the patients wishes and were consensually agreed upon. Question Answer Comments Discussion of Advance Directives occurred with: Patient Does the patient have a Living Will? No Does the patient have Health Care Power of Residency Program Coordinator? No Code Status History Code Status Date [...] the patient have Health Care Power of Residency Program Coordinator? No Bag Valve Device? Yes Intubation? No [...] First Alternate Health Care Agent Care Teams Truck Driver'S Offsider Relationship Specialty Start Date End Date Marcos Maurice PA-C [address] [facility] [place] [address] PCP - General Physician Operation Shift Supervisor 11/22/23 documented as of this encounter
--- OUTSIDE RECORDS SUMMARY | 2024-04-14 12:52 | External Medical Summary | Summary of Care ---
Author Name Unknown Organization [facility] Address [address] [place] [address] Phone [phone] Care Team Providers Care Chief Of Harbor Patrol Name Role Phone JosafatMarcos Javi MENON Primary Care Provide r Reason for Visit * Reason Onset Date Comments Hospital Follow-Up 03/17/2024 COPD Proven C are Encounter Details Date Type Department Care Team (Late st Contact Info) Description 03/17/2024 Telephone Pulmonary Function Lab, [facility] [address] [place] [address] Debra Larsen, [facility] Hospital Follow-Up (COPD [facility]ven [facility] ) Allergies Active Allergy Reactions Criticality Noted Date Comments Cortisone Muscle pain Medium 04/09/2017 At site of shot Bee Venom Anaphylaxis High 06/25/2021 Hydrocortisone High 12/25/2021 Other reaction(s): PAIN,UNABLE TO MOVE documented as of this encounter (statuses as of 03/17/2024) Medications Medication Sig Dispensed Refills Start Date [...] MG Oral Tablet (Crestor)Indications :Cor pulmonale, chronic ([facility]),COPD, group D, by GOLD 2017 classification ([facility]),Hypertensive heart and kidney disease with chronic diastolic congestive heart failure and stage 3a chronic kidney disease ([facility]),Dyslipidemia,E ssential hypertension with goal blood pressure less than 140/90 Take by mouth 1 Tablet in the morning. 90 Tablet 3 09/22/2022 Active Empagliflozin 10 MG Oral Tablet (Jardiance)Indicatio ns:Type 2 diabetes mellitus with stage 3a chronic kidney disease, without long-term current use of insulin ([facility]) Take 1 Tablet by mouth in the morning. 30 Tablet 11 11/22/2022 Active metFORMIN HCl 1000 MG Oral Tablet (Glucophage)Indicati ons:Type 2 diabetes mellitus with stage 3a chronic kidney disease, without long-term current use of insulin ([facility]) Take 1 Tablet by mouth 2 times a day with morning and evening meals. 60 Tablet 5 11/22/2022 Active Azelastine HCl 0.1 % Nasal Solution (Astelin) Administer 1 [place] into nostril in the morning and 1 [place] before bedtime. 30 mL 12 01/12/2023 Active Furosemide 80 MG Oral Tablet (Lasix)Indications:G eneralized osteoarthritis,Chron ic diastolic heart failure ([facility]) Take 1 Tablet by mouth in the morning and 1 Tablet before bedtime. 180 Tablet 3 03/26/2023 Active Potassium Chloride 20 MEQ Oral PacketIndications:Hy pokalemia Take 20 mEq by mouth in the morning. 30 Packet 5 05/30/2023 Active Trelegy Ellipta 100-62.5-25 MCG/ACT Aerosol Powder Breath Activated (Fluticasone-Umeclid inium-Vilanterol) Inhale 1 Puff by mouth in the morning. 60 Each 6 05/31/2023 Active Vitamin D3 50 MCG (1999 UT) Oral CapsuleIndications:V itamin D deficiency Take 1 Capsule by mouth in the morning. 90 Capsule 1 06/21/2023 Active Cetirizine HCl 10 MG Oral CapsuleIndications:V iral URI with cough,Acute exacerbation of chronic obstructive pulmonary disease (COPD) ([facility]) Take 1 Capsule by mouth at bedtime. 90 Capsule 3 08/21/2023 Active Melatonin 3 MG Oral Tablet Take 1 Tablet by mouth at bedtime. 30 Tablet 1 09/17/2023 Active Albuterol Sulfate HFA 108 (90 Base) MCG/ACT Inhalation Aerosol SolutionIndications: COPD, severe (HCC) Take 2 puffs every four hours as need for shortness of breath or wheezing 18 g 3 11/22/2023 Active Gabapentin 600 MG Oral Tablet (Neurontin)Indicatio ns:Generalized osteoarthritis Take 1 Tablet by mouth in the morning and 1 Tablet before bedtime. 180 Tablet 3 12/27/2023 Active Eliquis 5 MG Oral TabletIndications:Pe rsonal [...] ns:COPD, group D, by GOLD 2017 classification ([facility]) Inhale 1 Vial via nebulizer every 4 hours as needed for Wheezing or Shortness of Breath. 180 mL 11 01/31/2024 Active Albuterol Sulfate (2.5 MG/3ML) 0.083% Inhalation Nebulization Solution (Proventil)Indicatio ns:COPD, group D, by GOLD 2017 classification ([facility]) Inhale 1 Vial via nebulizer every 4 hours as needed for Wheezing or Shortness of Breath. 180 mL 11 01/31/2024 Active buPROPion HCl ER (XL) 300 MG Oral Tablet Extended Release 24 Hour (Wellbutrin XL)Indications:MDD (major depressive disorder), recurrent episode, mild (HCC),MARCIE (generalized anxiety disorder),Recurrent major depressive disorder, in partial remission (HCC) TAKE ONE TABLET BY MOUTH EVERY MORNING 90 Tablet 1 02/18/2024 Active prednisoLONE Acetate 1 % Ophthalmic Suspension [...] at bedtime. 3.5 g 11 03/05/2024 Active Benzonatate 100 MG Oral Capsule [...] for Diarrhea. 30 Capsule 0 03/11/2024 Active Hospital, Clinic, or Other Facility Administered Medication Ordered Dose Route Frequency Start Date End Date Status Albuterol Sulfate (Proventil) (5 MG/ML) 0.5% *conc* inhalation solution 2.5 mgIndications:COPD, severe (HCC) 2.5 mg NEBULIZER PRN 10/15/2023 10/14/2024 Active documented as of this encounter (statuses as of 03/17/2024) Active Problems Problem Noted Date Diagnosed Date [...] - TRES o Class D - Inhaled Suehehvcaixfgx-YXVQ-KQFH Combination Inhaler (Trellegy) o PD-4 Inhibitor (Daliresp) [...] oximeter to monitor SpO2, advised to contact [facility] if <90% and titrate as necessary, Tobacco use disorder 04/21/2021 Last Assessment & Plan: Referral to [employer] for assistance in getting nicoderm patches [...] Last Assessment & Plan: Currently followed by front attendant--not on any antihistamines currently, has follow up [...] as of this encounter (statuses as of 03/17/2024) Resolved Problems Problem Noted Date Diagnosed Date [...] - TRES o Class D - Inhaled Eqhzvnstugatum-RWLK-TIQN Combination Inhaler (Trellegy) o PD-4 Inhibitor (Daliresp) Self-Management plan o Prednisone 40mg daily for 5 days Rx o High frequency nebulizer treatments every 4-6 hours around the clock Exacerbation plan o Prednisone rescue kit Rescue kit given today. Educated on use. Must call [facility] when initiated so further assessment can be made documented as of this encounter (statuses as of 03/17/2024) Immunizations Name Administration Dates Next Due COVID-19 mRNA, LNP-s, No Pre serve, 2-Dose Series (Moderna) 01/28/2021 Pneumococcal Conjugate Vacci ne, 20-valent ([id number]) 05/10/2022 Pneumococcal Polysaccharide PPV23 (Pneumovax) 11/17/2013 Seasonal [...] Notes * Telephone Encounter - Debra Larsen, CONTROLLED ATMOSPHERIC FURNACE BRAZER - 03/17/2024 10:31 AM EDT Post Discharge Follow-Up Phone Call Patient Name: Edna Kebede Discharge Date: 03/11/24 Date of Call: 03/17/2024 Time of Call: 10:34 AM Patient successfully contacted? Yes Symptoms/Exposure How is your breathing post hospitalization? " Little Better" Sputum: Color clear Sputum Volume: baseline Shortness of Breath: baseline Cough: baseline Fatigue: baseline Continued flutter valve use. Baseline Symptoms: sob with exertion , productive cough Comorbid Conditions: CHF, PHTN, DM, obesity Exposures to irritants (mold, dust, debris, chemicals, pets, etc.): no Smokes: Yes, 1-2 cigarettes per day Second-Hand Smoke Exposure: family smokes outside Triggers: weather Readmission Screening Readmission within 30 days?: No Vaccine History Immunization History Administered Date(s) Administered COVID-19 mRNA, LNP-s, No Preserve, 2-Dose Series (Moderna) 01/28/2021 Pneumococcal Conjugate Vaccine, 20-valent ([id number]) 05/10/2022 Pneumococcal Polysaccharide PPV23 (Pneumovax) 11/17/2013 Seasonal Influenza, PF, 6 M & above, IM , (FluLaval or Fluzone) 11/20/2017, 09/10/2019 Seasonal Influenza, Quadrivalent Hd (Fluzone Hd) 09/13/2023 Seasonal Influenza, Quadrivalent, No Preserve, IM 10/10/2016 Seasonal Influenza, Split, IIV3, With Preserve, Inj 11/17/2013, 06/27/2014, 08/20/2015 TDAP (age 10 and older)(Boostrix) 11/17/2013 Post Discharge Follow-Up Next Pulmonary Appointment: 04/03/24- [place]; 04/07/24- sleep test- plans to attend - discussion regarding cpap/ bipap pt is willing to try to wear if prescribed Transportation Difficulty: No Followed by or Eligible for: N/A- pt feels that she may need home nursing- she will discuss with PCP at f/u appointment tomorrow Medicated Therapy Respiratory Medications/Use: Trelegy- once daily- rinsing ; ALbuterol neb using 4 x times daily; albuterol MDI - prn; cetrizine, nasal spray Difficulty Affording Respiratory Medications: No Oxygen Use: pt using 02 @ 4 lpm x 24 hours ( prescribed 3 lpm at rest and 8 lpm with exertion ) pt states that her 02 sats are running 89-90%. Patient has humidity added to concentrator. Noninvasive therapy: sleep study 04/07/24 Advice given to patient: Pulmonary regimen reviewed with patient. Instructed patient to call the Pulmonary Clinic when starting to notice early onset of COPD flare symptoms. Reminded patient of upcoming Pulmonary Medicine appointment. Patient verbalized understanding. Encouraged to keep scheduled appointments. Smoking education provided. Encouraged staying active. Pt meets criteria for f/u ABG. Does patient need additional follow up? Yes, by telephone within 30 days from 03/17/2024 Debra Larsen CRT documented in this encounter Plan of Treatment Upcoming Encounters Date Type Department Care Team (Latest Contact Info) Description 03/17/2024 2:00 PM EDT Hospital Encounter Radiology, [address] [place] [address] 03/18/2024 8:20 AM EDT Office Visit [facility] [address] [place] [address] Marcos Maurice PA-C [address] [place] [address] 03/25/2024 9:24 AM EDT Hospital Encounter OR GL, Operating Room, [facility] - 4th Floor [address] [place] [address] Andrea Mcclendon, DO [address] [place] [address] 03/25/2024 9:24 AM EDT - 03/25/2024 10:15 AM EDT Surgery OR [facility], Operating Room, [facility] - [facility] Floor [address] [place] [address] Andrea Mcclendon, [address] [place] [address] EXTRACAPSULAR CATARACT REMOVAL WITH INTRAOCULAR LENS 03/26/2024 8:00 AM EDT Office Visit Ophthalmology [place] [address] [place] [address] [address] Andrea Mcclendon, [facility] [place] [address] 04/02/2024 9:15 AM EDT [place] [address] [place] [address] Andrea Mcclendon, [facility] [place] [address] 04/03/2024 9:40 AM EDT Office Visit Pulmonary Medicine Trent Moy [place] [address] [place] [phone] Chance Zimmerman MD [address] [place] [address] 04/07/2024 8:30 PM EDT PulmDiagnostic Sleep Lab, [address] [place] [address] [facility], Sleep Med [facility] [address] [facility] [address] 04/25/2024 2:15 PM EDT Office Visit Ophthalmology, [place] [address] [facility] [place] [address] Andrea [facility]clendon DO [address] [facility] [address] 06/18/2024 7:40 AM EDT Office Visit [facility], [address] [facility] [place] [address] Piper Cazares DO [address] [place] [address] 07/14/2024 1:00 PM EDT PulmDiagnostic Pulmonary Function Lab, [address] [place] [address] [facility], Pulm Function Room [address] [place], [place] [address] [address] 07/14/2024 2:00 PM EDT PulmDiagnostic Pulmonary Function Lab, [address] [facility] [address] [facility], Pulm Function Room 2 [address] [facility] [address] 07/23/2024 3:20 PM EDT Office Visit Pulmonary Medicine [facility] [address] [place] [address] [phone] Chance Zimmerman MD [address] [place] [address] [address] Scheduled Procedures Name Priority Associated Diagnoses Date/Ti me EXTRACAPSULAR CATARACT REMOV AL WITH INTRAOCULAR LENS Cataract 03/25/2024 9:24 AM EDT Health Maintenance Due Date Last Done Comments Alpha-1 Antitrypsin 1976 Cologuard 2003 Sigmoidoscopy 2003 Zoster Vaccines (1 of 2) 2008 Fecal Occult Blood Test 11/17/2014 11/17/2013 Mammogram 11/27/2018 11/27/2017, 12/0 04/2016, 12/05/2013 Colonoscopy 09/20/2020 09/20/2010 Colorectal Cancer Screening 09/20/2020 *ADVANCE DIRECTIVE NOT ON FILE 04/29/2022 Albumin/Creatinine Ratio 02/03/2023 02/03/2022, 06/19 COVID-19 Vaccine (2 - season) 2023 01/28/2021 DXA Scan 2023 DTaP,Tdap,and Td Vaccines (2 - Td or Tdap) 11/17/2023 11/17/2013 HbA1c 06/19/2024 12/20/2023, 08/20, 05/22/2023, Additional history exists GFR 09/10/2024 03/11/2024, 02/18, 03/09/2024, Additional history exists DISCUSS TOBACCO CESSATION (REFER TO SMARTSET #9441) 10/15/2024 10/15/2023, 05/31/2023, 01/12/2023, Additional history exists Diabetic Eye Exam 12/10/2024 12/10/2023, , 12/10/2023, Additional history exists Diabetic Foot Exam 02/12/2025 02/13/2024 O2 ASSESSMENT COMPLETED IN PAST YEAR FOR COPD 02/25/2025 02/26/2024 CKD PHOS USE SMARTSET 44302 03/09/202502/18, 12/19/2023, 09/12/2023, Additional history exists CKD HGB USE SMARTSET 91357 03/11/202503/11, 03/10/2024, 03/09/2024, Additional history exists Lipid [...] this encounter Medical Devices Implanted Type Area Greenskeeper Device Identifier Shelf Expiration Date Model / Serial / Lot Lens 20.5 [facility] - [id number] - [id number] Implanted:Qty: 1 on 02/26/2024 by Andrea Mcclendon DO at OR [facility] Left: Eye [employer] 08/25/2026 [id number] / [id number] / documented as of this encounter [...] the patient have Health Care Power of Sanding Machine Operator? No Code Status History Code Status Date [...] the patient have Health Care Power of Sanding Machine Operator? No Bag Valve Device? Yes Intubation? [...] First Alternate Health Care Agent Care Teams Chief Of Harbor Patrol Relationship Specialty Start Date End Date Marcos Maurice PA-C [address] [facility] [place] [address] PCP - General Physician Creche Attendant 11/22/23 documented as of this encounter
--- OUTSIDE RECORDS SUMMARY | 2024-04-14 12:52 | External Medical Summary | Summary of Care ---
Author Name Unknown Organization [facility] Address [address] [place] [facility] [place] [address] Phone [phone] Care Team Providers Care Student Development Dean Name Role Phone Marcos Maurice PA-C Primary Care Provide r Encounter Details Date Type Department Care Team (Late st Contact Info) Description 03/19/2024 Telephone [facility] [address] [facility] [place] [phone] Marcos Maurice PA-C [address] [facility] [place] [place] [address] Allergies Active Allergy Reactions Criticality Noted [...] Oral Tablet (Crestor)Indications :Cor pulmonale, chronic ([facility]),COPD, group D, by GOLD 2017 classification ([facility]),Hypertensive heart and kidney disease with chronic diastolic congestive heart failure and stage 3a chronic kidney disease ([facility]),Dyslipidemia,E ssential hypertension with goal blood pressure less than 140/90 Take by mouth 1 Tablet in the morning. 90 Tablet 3 09/22/2022 Active Empagliflozin 10 MG Oral Tablet (Jardiance)Indicatio ns:Type 2 diabetes mellitus with stage 3a chronic kidney disease, without long-term current use of insulin ([facility]) Take 1 Tablet by mouth in the morning. 30 Tablet 11 11/22/2022 Active metFORMIN HCl 1000 MG Oral Tablet (Glucophage)Indicati ons:Type 2 diabetes mellitus with stage 3a chronic kidney disease, without long-term current use of insulin ([facility]) Take 1 Tablet by mouth 2 times a day with morning and evening meals. 60 Tablet 5 11/22/2022 Active Azelastine HCl 0.1 % Nasal Solution (Astelin) Administer 1 [place] into nostril in the morning and 1 [place] before bedtime. 30 mL 12 01/12/2023 Active Furosemide 80 MG Oral Tablet (Lasix)Indications:G eneralized osteoarthritis,Chron ic diastolic heart failure ([facility]) Take 1 Tablet by mouth in the [...] major depressive disorder, in partial remission ([facility]) Take 1 Tablet by mouth in the morning. 90 Tablet 3 01/02/2024 Active Nicotine 21 MG/24HR Transdermal Patch 24 Hour (Nicoderm CQ)Indications:COPD exacerbation ([facility]),Tobacco use disorder Place 1 Patch over 24 hours topically on the skin in the morning. On upper body/upper arm, change once a day for 6 weeks.. 42 Patch 1 01/18/2024 Active Albuterol Sulfate (2.5 MG/3ML) 0.083% Inhalation Nebulization Solution (Proventil)Indicatio ns:COPD, group D, by GOLD 2017 classification ([facility]) Inhale 1 Vial via nebulizer every 4 hours as needed for Wheezing or Shortness of Breath. 180 mL 01/31/2024 Active Albuterol Sulfate (2.5 MG/3ML) 0.083% Inhalation Nebulization Solution (Proventil)Indicatio ns:COPD, group D, by GOLD 2017 classification ([facility]) Inhale 1 Vial via nebulizer every 4 [...] - TRES o Class D - Inhaled Lcvvlmvsaufiwf-KMGH-ZYIP Combination Inhaler (Trellegy) o PD-4 Inhibitor (Daliresp) [...] oximeter to monitor SpO2, advised to contact [facility] if <90% and titrate as necessary, Tobacco use disorder 04/21/2021 Last Assessment & Plan: Referral to [employer] for assistance in getting nicoderm patches [...] Last Assessment & Plan: Currently followed by credit verification clerk--not on any antihistamines currently, has follow up [...] - TRES o Class D - Inhaled Viegdwujrfvakv-NRUY-ZAWW Combination Inhaler (Trellegy) o PD-4 Inhibitor (Daliresp) Self-Management plan o Prednisone 40mg daily for 5 days Rx o High frequency nebulizer treatments every 4-6 hours around the clock Exacerbation plan o Prednisone rescue kit Rescue kit given today. Educated on use. Must call [facility] when initiated so further assessment can be made documented as of this encounter (statuses as of 03/19/2024) Immunizations Name Administration Dates Next Due COVID-19 mRNA, LNP-s, No Pre serve, 2-Dose Series (Moderna) 01/28/2021 Pneumococcal Conjugate Vacci ne, 20-valent ([id number]) 05/10/2022 Pneumococcal Polysaccharide PPV23 (Pneumovax) 11/17/2013 Seasonal [...] encounter Miscellaneous Notes * Telephone Encounter - Marcos Maurice PA-C [...] 03/25/2024 8:30 AM EDT Hospital Encounter OR [facility], Operating Room, [facility] - 4th Floor [address] [place] [address] Andrea Mcclendon, DO [facility] [place] [address] 03/25/2024 8:30 AM EDT - 03/25/2024 9:21 AM EDT Surgery OR [facility], Operating Room, [facility] - 4th Floor [address] [place] [address] [address] Andrea Mcclendon, [address] [place] [address] EXTRACAPSULAR CATARACT REMOVAL WITH INTRAOCULAR LENS 03/26/2024 8:00 AM EDT [facility] [address] [place] [address] Andrea Mcclendon, [address] [place] [address] 04/02/2024 9:15 AM EDT [facility] [address] [place] [address] Andrea Mcclendon, [address] [place] [address] 04/03/2024 9:40 AM EDT Office Visit Pulmonary Medicine [place] [address] [place] [address] [phone] Chance Zimmerman MD [address] [facility] [address] 04/07/2024 8:30 PM EDT PulmDiagnostic Sleep Lab, [facility] [address] [place] [address] [facility], Sleep Med Night Sleep [address] [place] [address] 04/25/2024 2:15 PM EDT Office Visit [facility] [address] [place] [address] Andrea Mcclendon, [address] [place] [address] 06/18/2024 7:40 AM EDT Office Visit [facility] [address], [address] [place] [address] Piper Cazares DO [address] [facility] [place] [place] [address] 07/14/2024 1:00 PM EDT PulmDiagnostic Pulmonary Function Lab, [facility] [address] [place] [address] Gl, Pulm Function Room 1 [address] [place] [address] 07/14/2024 2:00 PM EDT PulmDiagnostic Pulmonary Function Lab, [facility] [address] [place] [address] Gl, Pulm Function Room 2 [address] [place] [address] 07/23/2024 3:20 PM EDT Office [facility] [address] [place] [address] [phone] Chance Zimmerman MD [address] [place] [address] Scheduled Procedures Name Priority Associated Diagnoses Date/Ti [...] Ratio 02/03/2023 02/03/2022, 06/19 COVID-19 Vaccine ( season) 2023 01/28/2021 DXA Scan 2023 DTaP,Tdap,and [...] COPD 02/25/2025 02/26/2024 CKD PHOS USE SMARTSET 10835 03/09/202502/18, 12/19/2023, 09/12/2023, Additional history exists CKD HGB USE SMARTSET 43086 03/11/202503/11, 03/10/2024, 03/09/2024, Additional history exists Lipid [...] this encounter Medical Devices Implanted Type Area Clerk Funeral Detail Device Identifier Shelf Expiration Date Model / Serial / Lot Lens 20.5 [employer] - [id number] - [id number] Implanted:Qty: 1 on 02/26/2024 by Andrea Mcclendon DO at OR [facility] Left: Eye [employer] 08/25/2026 [id number] / [id number] / documented as of this encounter [...] the patient have Health Care Power of Lead Assembler? No Code Status History Code Status Date [...] the patient have Health Care Power of Lead Assembler? No Bag Valve Device? Yes Intubation? No [...] Agents on File Name Relationship Healthcare Agent [facility] p Communication Martinez GRIGSBY Adult Child First Alternate Health Care Agent Peter Grigsby Adult Child First Alternate Health Care Agent Jazmine Corona Adult Child First Alternate Health Care Agent Care Teams Student Development Dean Relationship Specialty Start Date End Date Marcos Maurice PA-C [address] [facility], [place] [place] [address] PCP - General Physician Core Maker 11/22/23 documented as of this encounter
--- OUTSIDE RECORDS SUMMARY | 2024-04-14 12:52 | External Medical Summary | Summary of Care ---
Author Name Unknown Organization [facility] Address [address] [place] [address] Phone [phone] Care Team Providers Care Outside Rigger Name Role Phone Marcos Maurice PA-C Primary Care Provide r Encounter Details Date Type Department Care Team (Late st Contact Info) Description 12/24/2023 Telephone Family [facility] [place] Osei Dasilva [address] [place] [address] aMrcos Maurice PA-C [address] [place] [address] Allergies Active Allergy Reactions Criticality Noted Date Comments Cortisone Muscle pain Medium 04/09/2017 At site of shot Bee Venom Anaphylaxis High 06/25/2021 Hydrocortisone High 12/25/2021 Other reaction(s): PAIN,UNABLE TO MOVE documented as of this encounter (statuses as of 03/24/2024) Medications Medication Sig Dispensed Refills Start Date End Date Status Acetaminophen 500 MG Oral Tablet (Tylenol) Take 1 Tablet by mouth every 6 hours as needed. 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 15.8 mL 2 2 Active Rosuvastatin Calcium 20 MG Oral Tablet (Crestor)Indicatio ns:Cor pulmonale, chronic ([facility]),COPD, group D, by GOLD 2017 classification ([facility]),Hypertensive heart and kidney disease with chronic diastolic congestive heart failure and stage 3a chronic kidney disease ([facility]),Dyslipidemia ,Essential hypertension with goal blood pressure less than 140/90 Take by mouth 1 Tablet in the morning. 90 Tablet 3 2 Active Empagliflozin 10 MG Oral Tablet (Jardiance)Indicat ions:Type 2 diabetes mellitus with stage 3a chronic kidney disease, without long-term current use of insulin ([facility]) Take 1 Tablet by mouth in the morning. 30 Tablet 11 3 Active metFORMIN HCl 1000 MG Oral Tablet (Glucophage)Indica tions:Type 2 diabetes mellitus with stage 3a chronic kidney disease, without long-term current use of insulin ([facility]) Take 1 Tablet by mouth 2 times a day with morning and evening meals. 60 Tablet 5 3 Active Azelastine HCl 0.1 % Nasal Solution (Astelin) Administer 1 Roscoe into nostril in the morning and 1 Roscoe before bedtime. 30 mL 12 3 Active Furosemide 80 MG Oral Tablet (Lasix)Indications :Generalized osteoarthritis,Chr onic diastolic heart failure ([facility]) Take 1 Tablet by mouth in the morning and 1 Tablet before bedtime. 180 Tablet 3 3 Active Potassium Chloride 20 MEQ Oral PacketIndications: Hypokalemia Take 20 mEq by mouth in the morning. 30 Packet 5 3 Active Vitamin D3 50 MCG (1999 UT) Oral CapsuleIndications :Vitamin D deficiency Take 1 Capsule by mouth in the morning. 90 Capsule 1 3 Active Melatonin 3 MG Oral Tablet Take 1 Tablet by mouth at bedtime. 30 Tablet 1 3 Active Trelegy Ellipta 100-62.5-25 MCG/ACT Aerosol Powder Breath Activated (Fluticasone-Umecl idinium-Vilanterol ) Inhale 1 Puff by mouth in the morning. 60 Each 6 3 03/18/20 24 Discontinued(Re fill) Albuterol Sulfate (2.5 MG/3ML) 0.083% Inhalation Nebulization Solution (Proventil)Indicat ions:COPD, group D, by GOLD 2017 classification ([facility]) Inhale 1 Vial via nebulizer every 4 hours as needed for Wheezing or Shortness of Breath. 180 mL 11 3 01/31/20 24 Discontinued(Re fill) Cetirizine HCl 10 MG Oral CapsuleIndications :Viral URI with cough,Acute exacerbation of chronic obstructive pulmonary disease (COPD) (HCC) Take 1 Capsule by mouth at bedtime. 90 Capsule 3 3 03/18/20 24 Discontinued(Re fill) buPROPion HCl ER (XL) 300 MG Oral Tablet Extended Release 24 Hour (Wellbutrin XL)Indications:MDD (major depressive disorder), recurrent episode, mild (HCC) Take 1 Tablet by mouth in the morning. 90 Tablet 1 3 02/18/20 24 Discontinued Albuterol Sulfate HFA 108 (90 Base) MCG/ACT Inhalation Aerosol SolutionIndication s:COPD, severe (HCC) Take 2 puffs every four hours as need for shortness of breath or wheezing 18 g 3 4 03/18/20 24 Discontinued(Re fill) Hospital, Clinic, or Other Facility Administered Medication Ordered Dose Route Frequency Start Date End Date Status Albuterol Sulfate (Proventil) (5 MG/ML) 0.5% *conc* inhalation solution 2.5 mgIndications:COPD, severe (HCC) 2.5 mg NEBULIZER PRN 10/15/2023 10/14/2024 Active documented as of this encounter (statuses as of 03/24/2024) Active Problems Problem Noted Date Diagnosed Date [...] - TRES o Class D - Inhaled Luzfhetkovvqea-PZNX-TLMO Combination Inhaler (Trellegy) o PD-4 Inhibitor (Daliresp) [...] oximeter to monitor SpO2, advised to contact [facility] if <90% and titrate as necessary, Tobacco use disorder 04/21/2021 Last Assessment & Plan: Referral to [employer] for assistance in getting nicoderm patches covered [...] Last Assessment & Plan: 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 Educated on use. Must call [facility] when initiated so further assessment can be made documented as of this encounter (statuses as of 03/24/2024) Immunizations Name Administration Dates Next Due COVID-19 mRNA, LNP-s, No Pre serve, 2-Dose Series (Moderna) 01/28/2021 Pneumococcal Conjugate Vacci ne, 20-valent (Armtkqv25) 05/10/2022 Pneumococcal Polysaccharide PPV23 (Pneumovax) 11/17/2013 Seasonal [...] Types Packs/Day Years Used Date Smoking Tobacco: Former Cigarettes 1 50 0 11/28/1973 - 11/28/2023 Passive Smoke Exposure: Past Smokeless Tobacco: [...] No 12/19/2023 documented as of this encounter Plan of Treatment Upcoming Encounters Date Type Department Care Team (Latest Contact Info) Description 03/25/2024 8:30 AM EDT Hospital Encounter OR [facility], Operating Room, [facility] - 4th Floor [address] [place] [address] Andrea Mcclendon, DO [address] [place] [address] 03/25/2024 8:30 AM EDT - 03/25/2024 9:21 AM EDT Surgery OR [facility], Operating Room, [facility] - 4th Floor [address] [place] [address] Andrea Mcclendon, DO [address] [place] [id number] EXTRACAPSULAR CATARACT REMOVAL WITH INTRAOCULAR LENS 03/26/2024 8:00 AM EDT [facility] [place] [address] Andrea Mcclendon, [address] [place] [address] 03/28/2024 10:00 AM EDT [facility], [address] [place] [address] [facility], Pul Function Room 1 [address] [place] [address] 03/28/2024 10:30 AM EDT [facility], [address] [address] [facility], Pulm Function Room 1 [address] [place] [address] 04/02/2024 9:15 AM EDT Office Visit [facility] [place] [address] [place] [address] Andrea Mcclendon DO [address] [place] [address] 04/03/2024 9:40 AM EDT Office Visit Pulmonary Medicine [facility] [place] [address] [place] [phone] Chance [facility]erman [facility] [address] [facility] [address] 04/07/2024 8:30 PM EDT [facility] Sleep [facility], [facility] [address] [facility] [place] [address] [facility], Sleep Med Night Sleep [address] [facility] [address] [address] 04/25/2024 2:15 PM EDT Office Visit Carmela [place] [address] [place] [address] Andrea Mcclendon DO [address] [facility] [place] [address] 06/18/2024 7:40 AM EDT Office Visit [facility] Osei Dasilva [address] [place] [address] Piper Cazares DO [address] [place] [address] 07/14/2024 1:00 PM EDT [facility] Lab, [facility] [address] [place] [address] Gl, Pulm Function Room 1 [address] [place] [address] 07/14/2024 2:00 PM EDT [facility] Lab, [facility] [address] [facility] [place] [address] [facility], [facility] Room 2 [address] [facility] [place] [address] 07/23/2024 3:20 PM EDT Office Visit Pulmonary Medicine [place] [address] [phone] Chance Zimmerman MD [address] [address] Scheduled Procedures Name Priority Associated Diagnoses Date/Ti [...] exists DISCUSS TOBACCO CESSATION (REFER TO SMARTSET #9888) 10/15/2024 10/15/2023, 05/31/2023, 01/12/2023, Additional history exists Diabetic Eye Exam 12/10/2024 12/10/2023, , 12/10/2023, Additional history exists Diabetic Foot Exam 02/12/2025 02/13/2024 O2 ASSESSMENT COMPLETED IN PAST YEAR FOR COPD 02/25/2025 02/26/2024 CKD PHOS USE SMARTSET 53780 03/09/202502/18, 12/19/2023, 09/12/2023, Additional history exists CKD HGB USE SMARTSET 02171 03/11/202503/11, 03/10/2024, 03/09/2024, Additional history exists Lipid [...] this encounter Medical Devices Implanted Type Area Livestock Inspector Device Identifier Shelf Expiration Date Model / Serial / Lot Lens 20.5 [employer] - [id number] - [id number] Implanted:Qty: 1 on 02/26/2024 by Andrea Mcclendon DO at OR [facility] Left: [employer] 08/25/2026 [id number] / [id number] / documented as of this encounter Additional Health Concerns Infection Onset Date Last Indicated Resolved Time Respiratory Rule-Out 03/08/2024 03/08/20242 024 1:25 PM EDT COVID-19 Rule-Out 03/08/2024 [...] the patient have Health Care Power of Technical Planner? No Code Status History Code Status Date [...] the patient have Health Care Power of Technical Planner? No Bag Valve Device? Yes Intubation? No [...] Name Relationship Healthcare Agent Relationshi p Communication Martinezliam GRIGSBY Adult Child First Alternate Health Care Agent Peter Grigsby Adult Child First Alternate Health Care Agent Jazmineprince Corona Adult Child First Alternate Health Care Agent Care Teams Outside Rigger Relationship Specialty Start Date End Date Marcos Maurice PA-C [address] [facility] [place] [address] PCP - General Physician Yard Coordinator 11/22/23 documented as of this encounter
--- OUTSIDE RECORDS SUMMARY | 2024-04-14 12:52 | External Medical Summary | Summary of Care ---
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 side. Morbid (severe) obesity due to excess calories ([facility]) 06/16/2022 Other pulmonary embolism without acute cor pulmonale ([facility]) 12/02/2021 02/28/22 Pulmonary note Pt hospitalized from 09/14/21 to 09/21/21 with bilateral subsegmental PE, 1stunprovoked PE Personal history of DVT (deep vein thrombosis) 03/08/2022 02/28/22 Pulmonary note (Z86.718) History of DVT (deep vein thrombosis) Right peroneal DVT seen on duplex on 09/15/21. Multiple PEs and hospitalized from 09/14/21 to 09/21/21. Provoked? 6 months, stillon blood thinners? Pneumonia due to COVID-19 virus 10/03/2022 PONV (postoperative nausea and vomiting) Prediabetes 03/07/2017 Pulmonary arterial hypertension (HCC) Pulmonary embolism (HCC) RLS (restless legs syndrome) 11/17/2013 Tobacco use disorder 04/21/2021 Vitamin D deficiency 11/17/2013 Past Surgical History: Procedure Laterality Date ABD WALL HERNIA REPAIR, LAP, REDUCIBLE CARPAL TUNNEL SURGERY Bilateral DENTAL SURGERY PROCEDURE NEC 2004 All teeth removed INJECT DX/THER SUBSTANCE INTERLAMINAR LUMBAR/SACRAL W IMAGE GUIDE Right 09/16/2019 INJECTION SPINE LUMBAR OR SACRAL performed by Fawn Vee MD at OR [facility] INJECT DX/THER SUBSTANCE INTERLAMINAR LUMBAR/SACRAL W IMAGE GUIDE N/A 09/17/2020 INJECTION SPINE LUMBAR OR SACRAL performed by Katie Plunkett MD at OR [facility] LIGATE/CUT OVIDUCT(S) LUMBAR / SACRAL EPIDURAL, ADD'L LEVEL Right 10/06/2019 INJECTION TRANSFORAMINAL EPIDURAL LUMBAR OR SACRAL ADDITIONAL performed by Fawn Vee MD at [facility] LUMBAR / SACRAL EPIDURAL, SINGLE LEVEL Right 10/06/2019 INJECTION TRANSFORAMINAL EPIDURAL LUMBAR OR SACRAL performed by Fawn Vee MD at OR [facility] REMOVE CATARACT, INSERT LENS PROSTH Left 02/26/2024 LEFT EXTRACAPSULAR CATARACT REMOVAL WITH INTRAOCULAR LENS performed by Andrea Mcclendon DO at OR [facility] REMOVE GALLBLADDER 2012 REPAIR RUPTURED ROTATOR CUFF, CHRON Bilateral Family History Problem Relation Age of Onset Alcohol and Other Disorders Associated Mother Emphysema Mother No Known Problems Father Hyperlipidemia Sister Arthritis Sister Hyperlipidemia Sister Immunodeficiency Daughter On gammaglobulin replacement therapy No Known Problems Brother (Half) No Known Problems Sister (Half) Suicide attempts Sister (Half) 30 Family Status Relation Status Mo Fa Alive Sis Alive Sis Alive Matt Alive Matt Alive Son Alive Son Alive HBRO Alive HSIS Alive HSIS Social History Socioeconomic History Marital status: Occupational History 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 Vaping Use Vaping Use: Never used Substance and Sexual Activity Alcohol use: No Drug use: No Social History Narrative No pets No mold Oil heating Window air conditioning Social Determinants of Health Food Insecurity: No Food Insecurity (07/31/2019) Hunger Vital Sign Worried About Running Out of Food in the Last Year: Never true Ran Out of Food in the Last Year: Never true Review of Systems Constitutional: Positive for fatigue. Negative for chills and fever. HENT: Negative. Eyes: Negative. Respiratory: Positive for cough, shortness of breath and wheezing. Cardiovascular: Negative. Negative for chest pain, palpitations and leg swelling. Gastrointestinal: Negative. Negative for abdominal pain, blood in stool, constipation, diarrhea, nausea and vomiting. Endocrine: Negative. Genitourinary: Negative. Musculoskeletal: Negative. Skin: Negative. Negative for rash. Allergic/Immunologic: Negative. Neurological: Positive for tremors. Negative for syncope and light-headedness. Hematological: Negative. Psychiatric/Behavioral: Negative. All other systems reviewed and are negative. Physical Exam BP 130/72 | Pulse 90 | Temp 36.6 C (97.9 F) (Tympanic) | Resp 20 | Ht 1.702 m (5' 7") | Wt 94 kg (207 lb 3.2 oz) | SpO2 98% | BMI 32.45 kg/m | BSA 2.11 m Physical Exam Vitals and nursing note reviewed. Constitutional: Appearance: Normal appearance. She is obese. HENT: Head: Normocephalic and atraumatic. Right Ear: Tympanic membrane, ear canal and external ear normal. Left Ear: Tympanic membrane, ear canal and external ear normal. Nose: Nose normal. Mouth/Throat: Mouth: Mucous membranes are moist. Pharynx: Oropharynx is clear. Eyes: Extraocular Movements: Extraocular movements intact. Conjunctiva/sclera: Conjunctivae normal. Pupils: Pupils are equal, round, and reactive to light. Cardiovascular: Rate and Rhythm: Normal rate and regular rhythm. Pulses: Normal pulses. Heart sounds: Normal heart sounds. No murmur heard. Pulmonary: Effort: Pulmonary effort is normal. Breath sounds: Normal breath sounds. Comments: Severely diminished breath sounds in all lung mia Abdominal: General: Abdomen is flat. Bowel sounds are normal. There is distension. Palpations: Abdomen is soft. Tenderness: There is no abdominal tenderness. There is no guarding or rebound. Musculoskeletal: General: Normal range of motion. Cervical back: Normal range of motion and neck supple. Skin: General: Skin is warm. Neurological: General: No focal deficit present. Mental Status: She is alert and oriented to person, place, and time. Psychiatric: Mood and Affect: Mood normal. Behavior: Behavior normal. Thought Content: Thought content normal. Judgment: Judgment normal. I have reviewed most recent labs BMP results Recent Labs Units 03/11/24 0521 03/10/24 0410 03/09/24 0325 SODIUM - [facility] mmol/L 142 145 142 POTASSIUM - [facility] mmol/L 3.9 3.5 4.4 CHLORIDE - [facility] mmol/L 96* 97* 102 CO2 - [facility] mmol/L 32 38* 30 CREATININE - [facility] mg/dL 1.1* 1.1* 0.8 BUN - [facility] mg/dL 31* 28* 23* Lipid panel results Recent Labs Units 04/19/22 0408 CHOLESTEROL - [facility] mg/dL 283* LDL CHOLESTEROL (CALCULATED) - [facility] mg/dL 190* HDL CHOLESTEROL - [facility] mg/dL 57 TRIGLYCERIDES - [facility] mg/dL 181* CBC results Recent Labs Units 03/11/24 0521 03/10/24 0410 03/09/24 0325 WBC K/uL 8.20 9.86 10.00 HGB g/dL 10.0* 10.1* 10.3* HCT % 32.7* 33.6* 34.6* PLT K/uL 308 305 283 HbA1c results Recent Labs Units 12/20/23 0503 09/09/23 0643 05/22/23 0358 HEMOGLOBIN A1C - [facility] % 8.0* 7.5* 6.5* TSH results No results for input(s): "TSH" in the last 88676 hours. Vitamin D results No results for input(s): "25OHVITAMIND" in the last 83387 hours. Hepatic panel results Recent Labs Units 03/08/24 1236 12/19/23 1236 09/08/23 1207 PROTEIN - [facility] g/dL 6.4 6.6 6.1 BILIRUBIN, TOTAL - [facility] mg/dL <0.2 0.3 0.2 ALKALINE PHOSPHATASE - [facility] U/L 106 120 74 AST - [facility] U/L 12 20 18 ALT - [facility] U/L 16 12 19 Protein/cr ratio results No results for input(s): "PROCRRATIO" in the last 80153 hours. Assessment and Plan Hospital discharge follow-up - DISCH MED RECON CUR MED LIS Preoperative clearance Cleared for cataract surgery. Acute exacerbation of chronic obstructive pulmonary disease (COPD) (HCC) Follow up with Pulmonary as scheduled on 04/03/2024. - Cetirizine HCl 10 MG Oral Capsule; Take 1 Capsule by mouth at bedtime. COPD, severe (HCC) - Albuterol Sulfate HFA 108 (90 Base) MCG/ACT Inhalation Aerosol Solution; Take 2 puffs every four hours as need for shortness of breath or wheezing - Trelegy Ellipta 100-62.5-25 MCG/ACT Aerosol Powder Breath Activated (Xmuyimdqjgk-Hzwnfsuzrplt-Qucnksvxeu); Inhale 1 Puff by mouth in the morning. MDD (major depressive disorder), recurrent episode, mild (HCC) - buPROPion HCl ER (XL) 300 MG Oral Tablet Extended Release 24 Hour (Wellbutrin XL); Take 1 Tablet by mouth in the morning. In the morning.. MARCIE (generalized anxiety disorder) - buPROPion HCl ER (XL) 300 MG Oral Tablet Extended Release 24 Hour (Wellbutrin XL); Take 1 Tablet by mouth in the morning. In the morning.. Generalized osteoarthritis - Gabapentin 600 MG Oral Tablet (Neurontin); Take 1 Tablet by mouth in the morning and 1 Tablet at noon and 1 Tablet before bedtime. Restless legs syndrome Increasing gabapentin. - Gabapentin 600 MG Oral Tablet (Neurontin); Take 1 Tablet by mouth in the morning and 1 Tablet at noon and 1 Tablet before bedtime. Tobacco abuse disorder Wrap-Up Follow Up: Return if symptoms worsen or fail to improve, for as scheduled. | For: as scheduled Time: I spent a total of 20-29 minutes (exact time 22 mins) on the date of service in preparation, delivery, and documentation of the care provided to Edna Kebede excluding any time spent in the performance of separately billed services. documented in this encounter Nursing Notes * Jaimee Hill LPN - 03/18/2024 8:13 AM EDT Chief Complaint Patient presents with Hospital Follow-Up She presented to [facility] ER on 03/08 for SOB, she was admitted and discharged on 03/11. Her symptoms have returned to her baseline with some SOB. documented in this encounter Plan of Treatment Upcoming Encounters Date Type Department Care Team (Latest Contact Info) Description 03/25/2024 8:30 AM EDT Hospital Encounter OR [facility], Operating Room, [facility] - 4th Floor [address] [place] [id number] Andrea Mcclendon, [address] [place] [address] 03/25/2024 8:30 AM EDT - 03/25/2024 9:21 AM EDT Surgery OR [facility], Operating Room, [facility] - 4th Floor [address] [place] [address] [place] [address] Andrea Mcclendon DO [address] [place] [id number] EXTRACAPSULAR CATARACT REMOVAL WITH INTRAOCULAR LENS 03/26/2024 8:00 AM EDT Office Visit [facility] [address] [place] [address] Andrea Mcclendon DO [address] [place] [address] 03/28/2024 10:00 AM EDT Pulm[facility] Pulmonary Function Lab, [address] [address] [address] [address] [facility] [address] 03/28/2024 10:30 AM EDT PulmDiagnostic Pulmonary Function Lab, [facility] [address] [facility] [place] [address] Gl, Pulm Function Room 1 [address] [facility] [place] [address] 04/02/2024 9:15 AM EDT Office Visit Ophthalmology [place] [address] [address] Andrea Mcclendon DO [address] [place] [address] 04/03/2024 9:40 AM EDT Office Visit Pulmonary Medicine [facility] [address] [place] [phone] Chance Zimmerman [facility] [address] [facility] [address] 04/07/2024 8:30 PM EDT PulmDiagnostic Sleep Lab, [facility] [address] [facility] [place] [address] [facility], Sleep Med Night Sleep [address] [place] [address] [place] [address] 04/25/2024 2:15 PM EDT Office Visit Ophthalmology [place] [address] [place] [address] Andrea Mcclendon DO [address] [place] [address] 06/18/2024 7:40 AM EDT Office Visit [facility], [place] [address] [facility] [place], [place] [address] Piper Cazares DO [address] [place] [address] 07/14/2024 1:00 PM EDT PulmDiagnostic Pulmonary Function Lab, [facility] [address] [place] [address] Gl, Pulm Function Room 1 [address] [place] [address] 07/14/2024 2:00 PM EDT PulmDiagnostic Pulmonary Function Lab, [facility] [address] [place] [address] Gl, Pulm Function Room 2 [address] [place] [address] 07/23/2024 3:20 PM EDT Office Visit Pulmonary Medicine [facility] [place] [address] [place] [phone] Chance Zimmerman MD [address] [place] [address] Scheduled Procedures Name Priority Associated Diagnoses Date/Ti [...] COPD 02/25/2025 02/26/2024 CKD PHOS USE SMARTSET 87181 03/09/202502/18, 12/19/2023, 09/12/2023, Additional history exists CKD HGB USE SMARTSET 79612 03/11/202503/11, 03/10/2024, 03/09/2024, Additional history exists Lipid [...] this encounter Medical Devices Implanted Type Area Automotive Service Director Device Identifier Shelf Expiration Date Model / Serial / Lot Lens 20.5 [employer]ot[employer] - [id number] - [id number] Implanted:Qty: 1 on 02/26/2024 by Andrea Mcclendon, DO at OR [facility] Left: Eye [employer] 08/25/2026 [id number] / [id number] / documented as of this encounter Visit Diagnoses Diagnosis Combined forms of age-related cataract of right eye- Primary Other and combined forms of senile cataract Hospital discharge follow-up- Primary Other follow-up examination Preoperative clearance Preoperative examination, unspecified Acute exacerbation of chronic obstructive pulmonary disease (COPD) (HCC) Obstructive chronic bronchitis with exacerbation COPD, severe (HCC) Chronic airway obstruction, not elsewhere classified MDD (major depressive disorder), recurrent episode, mild (HCC) Major depressive disorder, recurrent episode, mild MARCIE (generalized anxiety disorder) Generalized anxiety disorder Generalized osteoarthritis Generalized osteoarthrosis, unspecified site Restless legs syndrome Restless legs syndrome (RLS) Tobacco abuse disorder Tobacco use disorder Cataract Unspecified cataract documented in this encounter [...] the patient have Health Care Power of Office Machines Wirer? No Code Status History Code Status Date [...] the patient have Health Care Power of Office Machines Wirer? No Bag Valve Device? Yes Intubation? No [...] Agents on File Name Relationship [facility] Martinez GRIGSBY Adult Child First Alternate Health Care Agent Peter Grigsby Adult Child First Alternate Health Care Agent Jazmine Corona Adult Child First Alternate Health Care Agent Care Teams Academic Computing Director Relationship Specialty Start Date End Date Marcos Maurice PA-C [address] [facility] [place] [address] PCP - General Physician Hand Edger 11/22/23 documented as of this encounter
--- OUTSIDE RECORDS SUMMARY | 2024-04-14 12:52 | External Medical Summary | Summary of Care ---
Author Name Unknown Organization [facility] Address [address] [place] [address] Phone [phone] Care Team Providers Care Motor Expert Name Role Phone Marcos Maurice PA-C Primary Care Provide r Reason for Visit * Auth/Cert Specialty Diagnoses / Procedures Referred By Frantz herrera Referred To Contact Diagnoses Cataract Cataract [H26.9] Procedures REMOVE CATARACT, INSERT LENS PROSTH EXTRACAPSULAR CATARACT REMOVAL WITH INTRAOCULAR LENS Andrea Mcclendon DO [address] [id number] [address] [facility] [address] [facility] [address] Referral ID Status Reason Start Date Expiration Date Visits Re quested Visits Authorized [id number] Encounter Details Date Type Department Care Team (Late st Contact Info) Description 03/25/2024 7:03 AM EDT - 03/25/2024 9:53 AM EDT Hospital Encounter OR [facility], Operating Room, [facility] - 4th Floor [address] [facility] [place] [address] Andrea Mcclendon DO [address] [address] Discharge Disposition: Home - Self Care Allergies Active Allergy Reactions Criticality Noted Date Comments Cortisone Muscle pain Medium 04/09/2017 At site of shot Bee Venom Anaphylaxis High 06/25/2021 Hydrocortisone High 12/25/2021 Other reaction(s): PAIN,UNABLE TO MOVE documented as of this encounter (statuses as of 03/25/2024) Medications Medication Sig Dispensed Refills Start Date End Date Status Acetaminophen 500 MG Oral Tablet (Tylenol) Take 1 Tablet by mouth every 6 hours as needed. 0 Active oxygen IN GASIndications:COPD, group D, by GOLD 2017 classification ([facility]),Chronic hypoxemic respiratory failure ([facility]) 2 LPM at bedtime & at rest & 3 LPM with all exertion via n/c DX J 44.9 1 Each 0 07/31/2022 Active Fluticasone Propionate 50 MCG/ACT Nasal Suspension (Flonase) Administer into each nostril 2 Sprays in the morning. 15.8 mL 2 09/22/2022 Active Rosuvastatin Calcium 20 MG Oral Tablet (Crestor)Indications :Cor pulmonale, chronic ([facility]),COPD, group D, by GOLD 2017 classification ([facility]),Hypertensive heart and kidney disease with chronic diastolic congestive heart failure and stage 3a chronic kidney disease ([facility]),Dyslipidemia,E ssential hypertension with goal blood pressure less than 140/90 Take by mouth 1 Tablet in the morning. 90 Tablet 3 09/22/2022 Active Empagliflozin 10 MG Oral Tablet (Jardiance)Indicatio ns:Type 2 diabetes mellitus with stage 3a chronic kidney disease, without long-term current use of insulin ([facility]) Take 1 Tablet by mouth in the morning. 30 Tablet 11 11/22/2022 Active metFORMIN HCl 1000 MG Oral Tablet (Glucophage)Indicati ons:Type 2 diabetes mellitus with stage 3a chronic kidney disease, without long-term current use of insulin ([facility]) Take 1 Tablet by mouth 2 times a day with morning and evening meals. 60 Tablet 5 11/22/2022 Active Azelastine HCl 0.1 % Nasal Solution (Astelin) Administer 1 Kenneth into nostril in the morning and 1 Kenneth before bedtime. 30 mL 12 01/12/2023 Active Furosemide 80 MG Oral Tablet (Lasix)Indications:G eneralized osteoarthritis,Chron ic diastolic heart failure (HCC) Take 1 Tablet by mouth in [...] ns:COPD, group D, by GOLD 2017 classification ([facility]) Inhale 1 Vial via nebulizer every 4 hours as needed for Wheezing or Shortness of Breath. 180 mL 01/31/2024 Active Albuterol Sulfate (2.5 MG/3ML) 0.083% Inhalation Nebulization Solution (Proventil)Indicatio ns:COPD, group D, by GOLD 2017 classification ([facility]) Inhale 1 Vial via nebulizer every [...] for Diarrhea. 30 Capsule 0 03/11/2024 Active buPROPion HCl ER (XL) 300 MG [...] before bedtime. 90 Tablet 5 03/18/2024 Active documented as of this encounter (statuses as of 03/25/2024) Active Problems Problem Noted Date Diagnosed Date [...] - TRES o Class D - Inhaled Pchmwrhdvpiize-HSWD-ZZYT Combination Inhaler (Trellegy) o PD-4 Inhibitor (Daliresp) [...] 04/21/2021 Last Assessment & Plan: Referral to [employer] for assistance in getting nicoderm patches covered [...] Last Assessment & Plan: Currently followed by implementation director--not on any antihistamines currently, has follow [...] as of this encounter (statuses as of 03/25/2024) Resolved Problems Problem Noted Date Diagnosed Date [...] - TRES o Class D - Inhaled Weyxmlfnuyigpt-WHDZ-OYTC Combination Inhaler (Trellegy) o PD-4 Inhibitor (Daliresp) Self-Management plan o Prednisone 40mg daily for 5 days Rx o High frequency nebulizer treatments every 4-6 hours around the clock Exacerbation plan o Prednisone rescue kit Rescue kit given today. Educated on use. Must call [facility] when initiated so further assessment can be made documented as of this encounter (statuses as of 03/25/2024) Immunizations Name Administration Dates Next Due COVID-19 mRNA, LNP-s, No Pre serve, 2-Dose Series (Moderna) 01/28/2021 Pneumococcal Conjugate Vacci ne, 20-valent ([id number]) 05/10/2022 Pneumococcal Polysaccharide PPV23 (Pneumovax) 11/17/2013 Seasonal [...] Sign Reading Time Taken Comments Blood Pressure 128/69 03/25/2024 9:41 AM EDT Pulse 103 03/25/2024 9:41 AM EDT Temperature 37.1 C (98.8 F) 03/25/2024 9:41 AM ED T Respiratory Rate 24 03/25/2024 9:41 AM EDT Oxygen Saturation 92% 03/25/2024 9:41 AM EDT Inhaled Oxygen Concentration - - Weight 93.9 kg (207 lb) 03/25/2024 7:13 AM EDT Height 170.2 cm (5' 7.01") 03/25/2024 7:13 AM ED T Body Mass Index 32.41 03/25/2024 7:13 AM EDT documented in this encounter Functional [...] (15 years old or older) Yes 12/19/19 Cognitive Status Response Date of Assessm ent Because of a physical, menta l, or emotional condition, do you have serious difficulty concentrating, remembering, or making decisions? (5 years old or older) No 12/19/2023 documented as of this encounter Discharge Instructions * Discharge Instr - AVS* Andrea Mcclendon, DO - 03/25/2024 8:54 AM EDT Discharge Date: 03/25/24 Check your Patient Education Brochure for further information. If you have any further questions orconcerns after discharge and before 4:00 p.m. please contact your surgeons office at [phone]. This is our office phone number. After 4:00 p.m. or on the weekend, please call our on-call phone number at [phone]. Ask for the mining detail draftsperson paintings conservator. Please let the doctor on-call know you had surgery with Dr. Mcclendon. The on-call doctor will get in touch with Dr. Mcclendon on your behalf. Go to the Emergency Room if you feel the situation is an emergency. If you present to another facility's emergency room, please call and inform your surgeon's office at the phone number provided above. The information below provides you with the instructions and the list of medications you need to betaking following discharge from the hospital. If you have any questions, please ask before leaving.Please carry this letter with you when you see your doctor in the clinic. If you have questions, you can reach us at the numbers above. Diet: Start with clear liquids (jello, tea, apple juice), avoid dairy products (milk, cheese, pudding, ice cream) and fried, greasy foods. Progress to prescribed diet as tolerated. If nausea should occur, have clear liquids only until soft foods can be tolerated. Activity: A responsible adult must be with the patient for 24 hours after surgery. Rest today and tomorrow, and then increase activity as tolerated. DO NOT drive, operate any appliances and/or machinery or sign legal documents for 24 hours. DO NOT touch or rub the operative eye. Keep shield in place except to place eyedrops. Sleep with eyeshield in place. Eye Drops: Begin eyedrops when arrive home Ofloxacin One Drop to right eye 4 times per day Prednisolone acetate (shake well) One Drop to right eye 4 times per day Erythromycin ophthalmic ointment - Instill at bedtime or as needed for pain/discomfort right eye Please use the Ofloxacin drop first followed by the prednisolone drop. Shake the prednisolone 10-15 times prior to use. Wait at least 5 minutes between eyedrops. Please use your eyedrops first thing in morning prior to postoperative day 1 visit. Pain Contol: Tylenol extra-strength 1 tablet every 4 hours as needed for pain. Warnings: Call your surgeon promptly in case of: A. Pain that is not relieved by the medicine you were told to take (surface irritation and burning is common and not a concern) B. Swelling or pus-like drainage C. Persistent nausea and vomiting D. Other Questions or concerns Special Instructions: A. Do not lift heavy objects or bend until appointment tomorrow. B. If you have burning or scratchy sensation, it is okay to use the ointment In the blue kit - apply 1/4 inch into the gutter created by pulling lower eyelid down. Other Instructions: A. Please Bring the blue bag with both eyedrops with you to post-op visit tomorrow. documented in this encounter Progress Notes * Andrea Mcclendon DO - 03/25/2024 8:54 AM EDT [address] [address] OUTPATIENT SURGERY DISCHARGE SUMMARY NOTE Name: Edna Kebede Location: [place] [facility]/[place] Date: 03/25/2024 Time: 8:54 AM Surgery Date: 03/25/2024 Procedure: EXTRACAPSULAR CATARACT REMOVAL WITH INTRAOCULAR LENS Right Surgeon: Andrea Mcclendon DO Discharge Diagnosis: same After examination of this patient, I have determined she is ready for discharge to home when the patient meets criteria. Discharge instructions were given to the patient. documented in this encounter H&P Notes * Andrea Mcclendon DO - 03/25/2024 8:11 AM EDT HISTORY & PHYSICAL INTERVAL NOTE [address] [address] History and Physical Update: Name: Edna Kebede Location: [place] [facility]/[place] Date: 03/25/2024 Time: 8:11 AM DATE OF HISTORY AND PHYSICAL: 03/18/24 BP: 142 mmHg/58 mmHg (03/25/24712) Pulse: 89 (03/25/247[address]) Temp: 36.22 C (03/25/247[address]) Temp Summary: Temp Min: 36.2 C (97.2 F) Max: 36.2 C (97.2 F) SpO2: 92 % (03/25/24712) O2 flow rate: 4 L/MIN (03/25/24712) Supplemental O2 Delivery: Nasal Cannula (03/25/247[address]) Heart Exam: regular rate and rhythm Lung Exam: clear to auscultation bilaterally Other Pertinent Physical Exam: no eye changes I have reviewed the H&P previously performed and examined the patient today. There are no new findings noted. * Andrea Mcclendon DO - 03/24/2024 9:40 AM EDT Images from the original note were not included. See PCP clearance. Office Visit 03/18/[address] [facility], [place] Marcos Maurice PA-C [facility] Hospital discharge follow-up +8 more Dx Hospital Follow-Up ; Referred by Self Reason for Visit Progress Notes Marcos Maurice PA-C (Physician Hybrid Technologist - Certified) [facility] Medicine Expand All Collapse All[]Expand All by Default History of Present Illness Edna Kebede is a 63 year old female that presents for hospital follow-up. Patient was admitted to [facility] from 03/08/2024 until 03/11/2024 due to COPD [...] She also requires clearance for cataract surgery. Problem List Patient Active Problem List Diagnosis Code DJD (degenerative joint disease), cervical M47.812 Generalized osteoarthritis M15.9 Vitamin D deficiency E55.9 MARCIE (generalized anxiety disorder) F41.1 Gastroesophageal reflux disease without esophagitis K21.9 Recurrent major depressive disorder, in partial remission ([facility]) F33.41 Essential hypertension with goal blood pressure less than 140/90 I10 Migraine without aura and without status migrainosus, not intractable G43.009 Chronic seasonal allergic rhinitis due to pollen J30.1 COPD exacerbation ([facility]) J44.1 Dyslipidemia E78.5 Lumbar degenerative disc disease M51.36 Chronic diastolic heart failure ([facility]) I50.32 Chronic hypoxemic respiratory failure ([facility]) J96.11 Tobacco use disorder F17.200 Pulmonary hypertension ([facility]) I27.20 Insomnia G47.00 Personal history of DVT (deep vein thrombosis) Z86.718 Personal history of pulmonary embolism Z86.711 Cor pulmonale, chronic ([facility]) I27.81 Acute on chronic respiratory failure with hypoxia and hypercapnia ([facility]) J96.21, J96.22 Type 2 diabetes mellitus with stage 3a chronic kidney disease, without long-term current use of insulin ([facility]) E11.22, N18.31 Centrilobular emphysema ([facility]) J43.2 Bilateral lower extremity edema R60.0 COPD, group D, by GOLD 2017 classification ([facility]) J44.9 Chronic respiratory failure with hypoxia and hypercapnia ([facility]) J96.11, J96.12 Chronic anticoagulation Z79.01 Acute metabolic encephalopathy G93.41 Closed nondisplaced fracture of right clavicle with routine healing S42.001D Allergies Review of patient's allergies indicates: Allergen Reactions Honey Bee Venom Protein [Bee Venom] Anaphylaxis Hydrocortisone Other reaction(s): PAIN,UNABLE TO MOVE Cortisone Muscle pain At site of shot Current Medications Current Outpatient Medications Medication Sig Dispense Refill [...] 0.1 % Nasal Solution (Astelin) Administer 1 Kenneth into nostril in the morning and 1 Kenneth before bedtime. 30 mL 12 Furosemide 80 [...] Ellipta 100-62.5-25 MCG/ACT Aerosol Powder Breath Activated (Pmsuwikpfwk-Bpoayafvnrcc-Lgsexlkwul) Inhale 1 Puff by mouth in the [...] mg Nebulizer Chance Larson MD Past Medical History Past Medical History: Diagnosis Date Acute deep vein thrombosis (DVT) of right peroneal vein (HCC) 09/26/2021 02/28/14 Pulmonary note. (Z86.718) History of DVT (deep vein thrombosis) Right peroneal DVT seen on duplex on 09/15/21. Multiple PEs and hospitalized from 09/14/21 to 09/21/21. Provoked? 6 months, still on blood thinners? Acute pulmonary embolism without acute cor pulmonale (HCC) 12/02/2021 02/28/22 Pulmonary note Pt hospitalized from 09/14/21 to 09/21/21 with bilateral subsegmental PE, 1stunprovoked PE Allergic rhinitis 11/17/2013 Anxiety 11/17/2013 B12 deficiency 11/17/2013 Benzodiazepine abuse, episodic ([facility]) 05/21/2018 Chronic diastolic heart failure ([facility]) 02/28/2021 Chronic hypoxemic respiratory failure ([facility]) 04/21/2021 Chronic sinusitis 07/22/2014 COPD (chronic obstructive pulmonary disease) ([facility]) COPD, group D, by GOLD 2017 classification ([facility]) 03/29/2020 Nearing end-stage Per COPD GOLD Classification COPD, severity to be determined ([facility]) 11/17/2013 Cor pulmonale, chronic ([facility]) 03/08/2022 Depression 11/17/2013 DJD (degenerative joint [...] failure and stage 3a chronic kidney disease ([facility]) 04/14/2021 Hypertensive heart and kidney disease with chronic diastolic congestive heart failure and stage 3a chronic kidney disease ([facility]) 2023-11-22 Adding I13.0, I50.32, N18.31-Hypertensive heart and kidney disease with chronic diastolic congestive heart failure and stage 3a chronic kidney disease ([facility]) Dx to History Hypokalemia 07/26/2022 Insomnia 02/03/2022 Lumbar degenerative disc disease 08/26/2019 Pain down the L4-5 nerve root on the right. Migraine without aura and without status migrainosus, not intractable 01/24/2017 left side. Morbid (severe) obesity due to excess calories ([facility]) 06/16/2022 Other pulmonary embolism without acute cor pulmonale ([facility]) 12/02/2021 02/28/22 Pulmonary note Pt hospitalized [...] 04/21/2021 Vitamin D deficiency 11/17/2013 Past Surgical History Past Surgical History: Procedure Laterality Date ABD WALL HERNIA REPAIR, LAP, REDUCIBLE CARPAL TUNNEL SURGERY Bilateral DENTAL SURGERY PROCEDURE NEC 2004 All teeth removed INJECT DX/THER SUBSTANCE INTERLAMINAR LUMBAR/SACRAL W IMAGE GUIDE Right 09/16/2019 INJECTION SPINE LUMBAR OR SACRAL performed by Fawn Vee MD at OR [facility] INJECT DX/THER SUBSTANCE INTERLAMINAR LUMBAR/SACRAL W IMAGE GUIDE N/A 09/17/2020 INJECTION SPINE LUMBAR OR SACRAL performed by Katie Plunkett MD at OR [facility] LIGATE/CUT OVIDUCT(S) LUMBAR / SACRAL EPIDURAL, ADD'L LEVEL Right 10/06/2019 INJECTION TRANSFORAMINAL EPIDURAL LUMBAR OR SACRAL ADDITIONAL performed by Fawn Vee MD at [facility] LUMBAR / SACRAL EPIDURAL, SINGLE LEVEL Right 10/06/2019 INJECTION TRANSFORAMINAL EPIDURAL LUMBAR OR SACRAL performed by Fawn Vee MD at OR [facility] REMOVE CATARACT, INSERT LENS PROSTH Left 02/26/2024 LEFT EXTRACAPSULAR CATARACT REMOVAL WITH INTRAOCULAR LENS performed by Andrea Mcclendon DO at OR [facility] REMOVE GALLBLADDER 2012 REPAIR RUPTURED ROTATOR CUFF, CHRON Bilateral Family History Problem Relation Age of Onset Alcohol and Other Disorders Associated Mother Emphysema Mother No Known Problems Father Hyperlipidemia Sister Arthritis Sister Hyperlipidemia Sister Immunodeficiency Daughter On gammaglobulin replacement therapy No Known Problems Brother (Half) No Known Problems Sister (Half) Suicide attempts Sister (Half) 30 Family Status Family Status Relation Status Mo Fa Alive [...] All other systems reviewed and are negative. Objective Physical Exam BP 130/72 | Pulse 90 [...] Severely diminished breath sounds in all lung mai Abdominal: General: Abdomen is flat. Bowel sounds [...] reviewed most recent labs BMP results Recent labs Recent Labs Units 03/11/24 0521 03/10/24 0410 03/09/24 0325 SODIUM - [facility] mmol/L 142 145 142 POTASSIUM - [facility] mmol/L 3.9 3.5 4.4 CHLORIDE - [facility] mmol/L 96* 97* 102 CO2 - [facility] mmol/L 32 38* 30 CREATININE - [facility] mg/dL 1.1* 1.1* 0.8 BUN - [facility] mg/dL 31* 28* 23* Lipid panel results Recent labs Recent Labs Units 04/19/22 0408 CHOLESTEROL - [facility] mg/dL 283* LDL CHOLESTEROL (CALCULATED) - [facility] mg/dL 190* HDL CHOLESTEROL - [facility] mg/dL 57 TRIGLYCERIDES - [facility] mg/dL 181* CBC results Recent labs Recent Labs Units 03/11/24 0521 03/10/24 0410 03/09/24 0325 WBC K/uL 8.20 9.86 10.00 HGB g/dL 10.0* 10.1* 10.3* HCT % 32.7* 33.6* 34.6* PLT K/uL 308 305 283 HbA1c results Recent labs Recent Labs Units 12/20/23 0503 09/09/23 0643 05/22/23 0358 HEMOGLOBIN A1C - [facility] % 8.0* 7.5* 6.5* TSH results Recent labs No results for input(s): "TSH" in the last 69780 hours. Vitamin D results Recent labs No results for input(s): "25OHVITAMIND" in the last 95941 hours. Hepatic panel results Recent labs Recent Labs Units 03/08/24 1236 12/19/23 1236 09/08/23 1207 PROTEIN - [facility] g/dL 6.4 6.6 6.1 BILIRUBIN, TOTAL - [facility] mg/dL <0.2 0.3 0.2 ALKALINE PHOSPHATASE - [facility] U/L 106 120 74 AST - [facility] U/L 12 20 18 ALT - [facility] U/L 16 12 19 Protein/cr ratio results Recent labs No results for input(s): "PROCRRATIO" in the last 41277 hours. Assessment and Plan Hospital discharge follow-up - DISCH MED RECON CUR MED LIS Preoperative clearance Cleared for cataract surgery. Acute exacerbation of chronic obstructive pulmonary disease (COPD) ([facility]) Follow up with Pulmonary as scheduled on 04/03/2024. - Cetirizine HCl 10 MG Oral Capsule; Take 1 Capsule by mouth at bedtime. COPD, severe ([facility]) - Albuterol Sulfate HFA 108 (90 Base) MCG/ACT Inhalation Aerosol Solution; Take 2 puffs every four hours as need for shortness of breath or wheezing - Trelegy Ellipta 100-62.5-25 MCG/ACT Aerosol Powder Breath Activated (Kvmokbkycni-Mppvczlkwuni-Tvykhooxlt); Inhale 1 Puff by mouth in the morning. MDD (major depressive disorder), recurrent episode, mild ([facility]) - buPROPion HCl ER (XL) 300 MG [...] Tablet before bedtime. Tobacco abuse disorder Wrap-Up Wrap-Up Follow Up: Return if symptoms worsen [...] documented in this encounter Nursing Notes * Jose Sanz RN - 03/25/2024 9:50 AM EDT [address] [address] [facility] Surgery Discharge Note Name: Edna Kebede Date: 03/25/2024 Time: 9:52 AM Discharge Disposition: Home Responsible adult as escort home: Yes Transport Mode: Wheelchair Accompanied by: Spouse To: Car Belongings with patient: Yes Patient meets criteria to be transferred or discharged. * Genie Em RN - 03/20/2024 1:50 PM EDT Patient identified by: name/birthdate Person taught: Patient Optime case procedure confirmed with surgical consent Laterality confirmed as Right Surgery date at time of Pre-Surgery Center Encounter: 03/25/2024. What procedure is patient having? LEFT EXTRACAPSULAR CATARACT REMOVAL WITH INTRAOCULAR LENS ([id number]) In an emergency, is patient willing to accept blood products or blood transfusion? Unknown. Do you need to place a blood bank order? No Anesthesia consent pool notified? N/A Anesthesia evaluation requested per case documentation? No Preop Evaluation Requested? Yes, follow-up will be documented on Anesthesia note Pt's 03/18/2024 [facility]. PATIENT EDUCATION SCREENING Person taught: Patient Motivation Level: Asks Questions and Eager to Learn Language Barrier: No Physical Barrier: N/A METHOD: Lecture-telephone interview Patient Preferred Learning Methods: Lecture-Telephone interview Health History interview completed, questions answered, and the following patient instructions provided via telephone interview: Preoperative bathing instructions General preoperative instructions Medication instructions NPO instructions - If your normal morning routine take your Inhaler, Wellbutrin, Gabapentin, Requip, Rosuvastatin, and Zoloft the morning of surgery. If you take metformin, hold it the evening before surgery as well.No tobacco products after midnight. -STOP taking your Jardiance 3 days prior to surgery. Please continue to carefully monitor your blood sugar levels at home after discontinuation of this agent and contact the prescriber to determine: 1) how to manage high blood sugar levels (hyperglycemia) and 2) if you need any bridging medication. Pt states she's not holding her Eliquis. OUTCOME: State / Describe / Explain and Needs Reinforcement * Genie Em RN - 03/04/2024 10:59 AM EDT Left message on mobile phone for return call @ [phone] by Patient at least one week prior to surgery date or to leave a number where they can be reached . Instructed clinic open hours are M-F 8:00a- 4:00p. documented in this encounter OR Notes * OR Surgeon - Andrea Mcclendon DO - 03/25/2024 8:54 AM EDT [address] [address] OPERATIVE REPORT Name: Edna Kebede Date: 03/25/2024 Time: 8:54 AM Service: Ophthalmology Date of Operation: 03/25/2024 Pre-op Diagnosis: Nuclear age related Cataract Right eye Post-op Diagnosis: Nuclear age related Cataract Right eye Surgeon: Andrea Mcclendon DO Assistants: None Anesthesia: Monitored Local Anesthesia with Sedation Operation: Cataract extraction to the Right eye with implantation of posterior intraocular lens. Findings: None Estimated Blood Loss: minimal IV Intake:<100 ml Urine output: 0 ml Drains: 0 INDICATIONS AND PERTINENT HISTORY: The patient has a visually significant cataract of the Right eye. The proposed procedure was discussed in detail with the patient. All feasible options were reviewed with the appropriate indications and expected outcomes. Specimens and Disposition: None Complications: none Condition: Stable Description of Operation: The patient was identified with two identifiers and the procedure verified. Proper consent was verified. Antibiotic and dilating drops were instilled in the right eye pre-operatively in the Pre-operative holding area. Fifteen minutes prior to transfer to the Operating Room, topical proparacaine drops and topical 2% lidocaine jelly were placed over the right eye. The patient was then taken back tothe Operating Room. Ophthalmic Betadine 5% was placed in the superior and inferior cul-de-sacs of the right eye. The right eye was then prepped with 10% povidone-iodine and draped in the usual sterile fashion. After the lid speculum was inserted, a paracentesis incision was made at the 11 o'clock position with a sharp blade. MPF lidocaine was instilled. The anterior chamber was then refilled withViscoat. The main wound was then created at 9' using the 2.4mm phacokeratome blade. A continuous curvilinear capsulorrhexis was then performed initially with a cystotome, then completed with Utrada forceps. Hydrodissection and hydrodelineation were achieved with balanced salt solution through a 27Gcannula. The phacoemulsification handpiece was utilized to remove the lens nucleus with a ohsfpn-[id number] technique. Residual cortical material was removed with the irrigating and aspirating device. The capsular bag was re-formed with viscoelastic. An [id number] 21.0 diopters in power (selected after review and interpretation of IOL measurements), acrylic foldable lens was placed into the capsularbag uneventfully and rotated into position with a Sinskey hook. It was noted to be in a central andstable position. The residual viscoelastic was irrigated and aspirated from the anterior chamber. Stromal hydration was applied to the wound. The anterior chamber was re-formed with balanced salt solution. The wounds were checked with Weck-cels and found to be watertight. The lid speculum was then removed. Brimonidine, prednisolone acetate, ocuflox drops and erythromycin oph ointment were instilled in the eye. The patient tolerated the procedure well. There were no complications I performed the procedure Andrea Mcclendon DO 03/25/2024 8:54 AM documented in this encounter Plan of Treatment Upcoming Encounters Date Type Department Care Team (Late st Contact Info) Description 03/26/2024 8:00 AM EDT Office Visit [facility]ela [place] [address] [phone] Andrea Mcclendon DO [address] [place] [address] 03/28/2024 10:00 AM EDT PulmDiagnostic Pulmonary Function Lab, [address] [address] [facility] [address] 03/28/2024 10:30 AM EDT PulmDiagnostic Pulmonary Function Lab, [address] [address] [facility] [address] 04/02/2024 9:15 AM EDT Office Visit Carmela [place] [address] [place] [address] Andrea Mcclendon DO 21 [facility] [place] [address] 04/03/2024 9:40 AM EDT Office Visit Pulmonary Medicine [facility] [place] [address] [phone] Chance Zimmerman MD [address] [address] 04/07/2024 8:30 PM EDT PulmDiagnostic Sleep Lab, [address] [place] [address] [facility], Sleep Med Night Sleep [address] [place], [place] [address] [address] 04/25/2024 2:15 PM EDT Office Visit Ophthalmology, [place] [address] [place] [address] Andrea [facility]clend[facility] DO [facility] [address] 06/18/2024 7:40 AM EDT Office Visit [facility], [place] [address] [facility] [place] [address] Piper Cazares DO [address] [facility] [place] [address] 07/14/2024 1:00 PM EDT PulmDiagnostic Pulmonary Function Lab, [address] [address] [facility], Pulm Function Room [address] [place], [place] [address] [address] 07/14/2024 2:00 PM EDT PulmDiagnostic Pulmonary Function Lab, [address] [place] [address] [facility], Pulm Function Room [address] [place], [place] [address] [address] 07/23/2024 3:20 PM EDT Office Visit Pulmonary Medicine [facility] [address] [address] [phone] Chance Zimmerman MD [address] [place] [address] [address] Scheduled Procedures Name Priority Associated Diagnoses Date/Ti me EXTRACAPSULAR CATARACT REMOV AL WITH INTRAOCULAR LENS Cataract 03/25/2024 8:15 AM EDT Health Maintenance Due Date Last [...] exists DISCUSS TOBACCO CESSATION (REFER TO SMARTSET #4482) 10/15/2024 10/15/2023, 05/31/2023, 01/12/2023, Additional history exists Diabetic Eye Exam 12/10/2024 12/10/2023, , 12/10/2023, Additional history exists Diabetic Foot Exam 02/12/2025 02/13/2024 CKD PHOS USE SMARTSET 48222 03/09/202502/18, 12/19/2023, 09/12/2023, Additional history exists CKD HGB USE SMARTSET 90270 03/11/202503/11, 03/10/2024, 03/09/2024, Additional history exists O2 [...] this encounter Medical Devices Implanted Type 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 Boat [employer] Device Identifier Shelf Expiration Date Model / Serial / Lot Lens 21.0 [facility] - [id number] - [id number] Implanted:Qty: 1 on 03/25/2024 by Andrea Mcclendon DO at OR [facility] Lens Right: Eye [employer] 06/01/2026 [id number] / [id number] / Lens 20.5 [facility] - [id number] - [id number] Implanted:Qty: 1 on 02/26/2024 by Andrea Mcclendon DO at OR [facility] Left: Eye [employer] 08/25/2026 CNA0T0.205 / [id number] / documented as of this encounter Procedures Procedure Name Priority Date/Time Associated Diagnosis Comments GLUCOSE METER, POINT OF CARE WILEY 03/25/2024 7:28 AM EDT documented in this encounter Results * (ABNORMAL) GLUCOSE METER, POINT OF CARE (03/25/2024 7:28 AM EDT) Glucose Meter 172(H) 70 - 120 mg/dL 03/25/2024 7:33 AM EDT [facility] Blood Whole blood specimen / Unknown 03/25/2024 7:28 AM EDT 03/25/2024 7:33 AM EDT Andrea Mcclendon DO LAB POINT OF CARE TE ST DOCKED DEVICE UNSOLICITED RESULTS [facility] [address] [facility] [place] [address] documented in this encounter Visit Diagnoses Diagnosis Combined forms of age-related cataract of right eye- Primary Other and combined forms of senile cataract Pseudophakia- Primary Lens replaced by other means documented in this encounter Administered Medications Inactive Administered Medications - up to 3 most recent administrations Medication Order MAR Action Action Date Dose Rate Site Diclofenac Sodium (Voltaren) 0.1 % ophthalmic solution 1 Drop 1 Drop, Right eye, Q5 MINUTES, First dose on Sun03/25/24 at 0745, Last dose on Sun03/25/24 at 0755, For 3 doses, PRE-OP: One drop to right eye every 5 minutes for 3 doses, Pre-Op Given 03/25/2024 7:59 AM EDT 1 Drop Given 03/25/2024 7:54 AM EDT 1 Drop Given 03/25/2024 7:49 AM EDT 1 Drop isolyte-S pH 7.4 infusion Intravenous, at 10 mL/hr, Plasma-LYTE 148, isolyte-S, and isolyte-S pH 7.4 are considered equivalent - including for MAR barcode scanning., CONTINUOUS, Starting on Sun03/25/24 at 0745, Until Sun03/25/24 at 1354, Pre-Op Continue from Pre-Op 03/25/2024 8:21 AM EDT 10 mL/hr New Bag 03/25/2024 7:50 AM EDT 10 mL/hr Lidocaine urethral/mucosal 2 % gel 2 mL Topical, ONCE, 1 dose, On Sun03/25/24 at 0745, 15 minutes prior to scheduled surgery time, apply 2 ml to superior and inferior fornices right eye & tape eyes shut., Pre-Op Given 03/25/2024 8:04 AM EDT 2 mL Ofloxacin (Ocuflox) 0.3 % ophthalmic solution 1 Drop 1 Drop, Right eye, Q5 MINUTES, First dose on Sun03/25/24 at 0745, Last dose on Sun03/25/24 at 0755, For 3 doses, PRE-OP: One drop to right eye every 5 minutes for 3 doses, Pre-Op Given 03/25/2024 7:5 9 AM EDT 1 Drop Given 03/25/2024 7:54 AM EDT 1 Drop Given 03/25/2024 7:49 AM EDT 1 Drop prednisoLONE Acetate (Pred Forte) 1 % ophthalmic suspension 1 Drop 1 Drop, Right eye, Q5 MINUTES, First dose on Sun03/25/24 at 0745, Last dose on Sun03/25/24 at 0755, For 3 doses, PRE-OP: One drop to right eye every 5 minutes for 3 doses., Pre-Op Given 03/25/2024 7:59 AM EDT 1 Drop Given 03/25/2024 7:54 AM EDT 1 Drop Given 03/25/2024 7:49 AM EDT 1 Drop proparacaine (Alcaine) 0.5 % ophthalmic solution 1 Drop 1 Drop, Right eye, ONCE, On Sun03/25/24 at 0745, For 1 dose, PRE-OP: 15 minutes prior to scheduled surgery time for 1 dose, Pre-Op Given 03/25/2024 7:38 AM EDT 1 Drop tropicamide 1%-cyclopentolate 1%-phenylephrine 2.5% ophthalmic solution 1 Drop 1 Drop, Right eye, Q5 MINUTES, First dose on Sun03/25/24 at 0745, Last dose on Sun03/25/24 at 0755, For 3 doses Given 03/25/2024 7:59 AM EDT 1 Drop Given 03/25/2024 7:54 AM EDT 1 Drop Given 03/25/2024 7:48 AM EDT 1 Drop documented in this encounter Active and Recently Administered Medications Times are shown in EDT. Scheduled Medication Order 03/23/2024 03/24/2024 03/25/2024 Diclofenac Sodium (Voltaren) 0.1 % ophthalmic solution 1 Drop 1 Drop, Right eye, Q5 MINUTES, First dose on Sun03/25/24 at 0745, Last dose on Sun03/25/24 at 0755, For 3 doses, PRE-OP: One drop to right eye every 5 minutes for 3 doses, Pre-Op 0749 (Given - Provid er: Jazmine Hernandez RN)0754 (Given - Provider: Jazmine Hernandez RN)0759 (Given - Provider: Jazmine Hernandez RN) Lidocaine urethral/mucosal 2 % gel 2 mL (COMPLETED) Topical, ONCE, 1 dose, On Sun03/25/24 at 0745, 15 minutes prior to scheduled surgery time, apply 2 ml to superior and inferior fornices right eye & tape eyes shut., Pre-Op 0804 (Given - Provid er: Jazmine Hernandez RN) Ofloxacin (Ocuflox) 0.3 % ophthalmic solution 1 Drop 1 Drop, Right eye, Q5 MINUTES, First dose on Sun03/25/24 at 0745, Last dose on Sun03/25/24 at 0755, For 3 doses, PRE-OP: One drop to right eye every 5 minutes for 3 doses, Pre-Op 0749 (Given - Provid er: Jazmine Hernandez RN)075 (Given - Provider: Jazmine Hernandez RN)075 (Given - Provider: Jazmine Hernandez RN) prednisoLONE Acetate (Pred Forte) 1 % ophthalmic suspension 1 Drop 1 Drop, Right eye, Q5 MINUTES, First dose on Sun03/25/24 at 0745, Last dose on Sun03/25/24 at 0755, For 3 doses, PRE-OP: One drop to right eye every 5 minutes for 3 doses., Pre-Op 0749 (Given - Provid er: Jazmine Hernandez RN)075 (Given - Provider: Jazmine Hernandez RN)075 (Given - Provider: Jazmine Hernandez RN) proparacaine (Alcaine) 0.5 % ophthalmic solution 1 Drop (COMPLETED) 1 Drop, Right eye, ONCE, On Sun03/25/24 at 0745, For 1 dose, PRE-OP: 15 minutes prior to scheduled surgery time for 1 dose, Pre-Op 0738 (Given - Provid er: Jazmine Hernandez RN) tropicamide 1%-cyclopentolate 1%-phenylephrine 2.5% ophthalmic solution 1 Drop 1 Drop, Right eye, Q5 MINUTES, First dose on Sun03/25/24 at 0745, Last dose on Sun03/25/24 at 0755, For 3 doses 0748 (Given - Provid er: Jazmine Hernandez RN)0754 (Given - Provider: Jazmine Hernandez, SAGE)0759 (Given - Provider: Jazmine Hernandez, SAGE) Continuous Medication Order 03/23/2024 03/24/2024 03/25/2024 isolyte-S pH 7.4 infusion Intravenous, at 10 mL/hr, Plasma-LYTE 148, isolyte-S, and isolyte-S pH 7.4 are considered equivalent - including for MAR barcode scanning., CONTINUOUS, Starting on Sun03/25/24 at 0745, Until Sun03/25/24 at 1354, Pre-Op 0750 (New Bag - Prov ider: Jazmine Hernandez RN)0821 (Continue from Pre-Op - Provider: Paola Farrar CRNA)0854 (Anes Intra-Op Fluid - Provider: Paola Farrar CRNA) PRN Medication Order 03/23/2024 03/24/2024 03/25/2024 balanced salt solution (Bss) ophthalmic solution (CANCELED) ONCE PRN INTRA PROCEDURE, Starting on Sun03/25/24 at 0838, Until Sun03/25/24 at 0852, Intra-Op 0838 (Given - Provid er: Andrea Mcclendon DO) briMONidine tartrate (Alphagan) 0.2 % ophthalmic solution (CANCELED) ONCE PRN INTRA PROCEDURE, Starting on Sun03/25/24 at 0839, Until Sun03/25/24 at 0852, Intra-Op 0839 (Given - Provid er: Andrea Mcclendon DO) DUOVISC inj KIT (CANCELED) ONCE PRN INTRA PROCEDURE, Starting on Sun03/25/24 at 0839, Until Sun03/25/24 at 0852, Intra-Op 0839 (Given - Provid er: Andrea Mcclendon DO) EPINEPHrine 0.5 mg in BSS Plus 500 mL inj (CANCELED) ONCE PRN INTRA PROCEDURE, Starting on Sun03/25/24 at 0841, Until Sun03/25/24 at 0852, Intra-Op 0841 (Given - Provid er: Andrea Mcclendon DO) Erythromycin ophthalmic ointment (CANCELED) ONCE PRN INTRA PROCEDURE, Starting on Sun03/25/24 at 0839, Until Sun03/25/24 at 0852, Intra-Op 0839 (Given - Provid er: Andrea Mcclendon DO) hydroxypropyl methylcellulose (Ocucoat) 2 % intraocular inj (CANCELED) ONCE PRN INTRA PROCEDURE, Starting on Sun03/25/24 at 0840, Until Sun03/25/24 at 0852, Intra-Op 0840 (Given - Provid er: Andrea Mcclendon DO) Lidocaine 1 % (PF) inj (CANCELED) ONCE PRN INTRA PROCEDURE, Starting on Sun03/25/24 at 0839, Until Sun03/25/24 at 0852, Intra-Op 0839 (Given - Provid er: Andrea Mcclendon DO) Ofloxacin (Ocuflox) 0.3 % ophthalmic solution (CANCELED) ONCE PRN INTRA PROCEDURE, Starting on Sun03/25/24 at 0840, Until Sun03/25/24 at 0852, Intra-Op 0840 (Given - Provid er: Andrea Mcclendon DO) Povidone-Iodine (Betadine) 5 % 2 mL syringe ophthalmic solution (CANCELED) ONCE PRN INTRA PROCEDURE, Starting on Sun03/25/24 at 0841, Until Sun03/25/24 at 0852, Intra-Op 0841 (Given - Provid er: Andrea Mcclendon DO) prednisoLONE Acetate (Pred Forte) 1 % ophthalmic suspension (CANCELED) ONCE PRN INTRA PROCEDURE, Starting on Sun03/25/24 at 0840, Until Sun03/25/24 at 0852, Intra-Op 0840 (Given - Provid er: Andrea Mcclendon DO) Tetracaine (Pontocaine) 0.5 % ophthalmic solution (CANCELED) ONCE PRN INTRA PROCEDURE, Starting on Sun03/25/24 at 0840, Until Sun03/25/24 at 0852, Intra-Op 0840 (Given - Provid er: Andrea Mcclendon DO) documented in this encounter Advance Directives Latest [...] the patient have Health Care Power of Entertainment Production Professional? No Full Code 02/26/2024 9:19 AM 02/26/2024 [...] the patient have Health Care Power of Entertainment Production Professional? No Bag Valve Device? Yes Intubation? No [...] First Alternate Health Care Agent Care Teams Motor Expert Relationship Specialty Start Date End Date Marcos Maurice PA-C [address] [facility] [place] [address] PCP - General Physician Hybrid Technologist 11/22/23 documented as of this encounter
--- OUTSIDE RECORDS SUMMARY | 2024-04-14 12:52 | External Medical Summary | Summary of Care ---
Author Name Unknown Organization [facility] Address [address] [place] [address] Phone [phone] Care Team Providers Care Manager Ship Name Role Phone Marcos Maurice PA-C Primary Care Provide r Encounter Details Date Type Department Care Team (Late st Contact Info) Description 03/19/2024 Telephone [facility] [address] [facility] [place] [phone] Marcos Maurice PA-C [address] [facility] [place] [address] Allergies Active Allergy Reactions Criticality Noted [...] MG Oral Tablet (Crestor)Indications :Cor pulmonale, chronic ([facility]),COPD, group D, by GOLD 2017 classification ([facility]),Hypertensive heart and kidney disease with chronic diastolic congestive heart failure and stage 3a chronic kidney disease ([facility]),Dyslipidemia,E ssential hypertension with goal blood pressure less than 140/90 Take by mouth 1 Tablet in the morning. 90 Tablet 3 09/22/2022 Active Empagliflozin 10 MG Oral Tablet (Jardiance)Indicatio ns:Type 2 diabetes mellitus with stage 3a chronic kidney disease, without long-term current use of insulin ([facility]) Take 1 Tablet by mouth in the morning. 30 Tablet 11 11/22/2022 Active metFORMIN HCl 1000 MG Oral Tablet (Glucophage)Indicati ons:Type 2 diabetes mellitus with stage 3a chronic kidney disease, without long-term current use of insulin ([facility]) Take 1 Tablet by mouth 2 times a day with morning and evening meals. 60 Tablet 5 11/22/2022 Active Azelastine HCl 0.1 % Nasal Solution (Astelin) Administer 1 Linch into nostril in the morning and 1 Linch before bedtime. 30 mL 12 01/12/2023 Active Furosemide 80 MG Oral Tablet (Lasix)Indications:G eneralized osteoarthritis,Chron ic diastolic heart failure ([facility]) Take 1 Tablet by mouth in [...] disorder),Recurrent major depressive disorder, in partial remission ([facility]) Take 1 Tablet by mouth in the morning. 90 Tablet 3 01/02/2024 Active Nicotine 21 MG/24HR Transdermal Patch 24 Hour (Nicoderm CQ)Indications:COPD exacerbation ([facility]),Tobacco use disorder Place 1 Patch over 24 hours topically on the skin in the morning. On upper body/upper arm, change once a day for 6 weeks.. 42 Patch 1 01/18/2024 Active Albuterol Sulfate (2.5 MG/3ML) 0.083% Inhalation Nebulization Solution (Proventil)Indicatio ns:COPD, group D, by GOLD 2017 classification ([facility]) Inhale 1 Vial via nebulizer every 4 hours as needed for Wheezing or Shortness of Breath. 180 mL 01/31/2024 Active Albuterol Sulfate (2.5 MG/3ML) 0.083% Inhalation Nebulization Solution (Proventil)Indicatio ns:COPD, group D, by GOLD 2017 classification (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 Educated on use. Must call [facility] when initiated so further assessment can be made documented as of this encounter (statuses as of 03/19/2024) Immunizations Name Administration Dates Next Due COVID-19 mRNA, LNP-s, No Pre serve, 2-Dose Series (Moderna) 01/28/2021 Pneumococcal Conjugate Vacci ne, 20-valent ([id number]) 05/10/2022 Pneumococcal Polysaccharide PPV23 (Pneumovax) 11/17/2013 Seasonal [...] encounter Miscellaneous Notes * Telephone Encounter - Bridgette Montoya LPN - 03/19/2024 11:16 AM EDT Patient aware and verbalized understanding, will comply Pt is agreeable to have MRI. MRI Questions: Does patient have any of the following: - Aneurysm clips - No - Ear implant - No - Intravascular coil filter or stent - No - Heart valve prosthesis - No - Infusion device - No - Pacemaker - No - Eye injury with metallic object - No - Metal foreign body injury - No * Telephone Encounter - Alem Rivas Ob/Or DARCY - 03/19/2024 11:14 AM EDT Patient calling in to check on the status of previous message. Reason for patient's call: returning call Caller was transferred to denise at the nurse line. * Telephone Encounter [...] 03/25/2024 8:30 AM EDT Hospital Encounter OR [facility], Operating Room, [facility] - 4th Floor [address] [place] [address] Andrea Mcclendon, [address] [place] [address] 03/25/2024 8:30 AM EDT - 03/25/2024 9:21 AM EDT Surgery OR [facility], Operating Room, [facility] - 4th Floor [address] [place] [address] Andrea Mcclendon, [address] [place] [address] EXTRACAPSULAR CATARACT REMOVAL WITH INTRAOCULAR LENS 03/26/2024 8:00 AM EDT Office Visit Pratibha Casey [address] [place] [address] Andrea Mcclendon, [address] [place] [address] 04/02/2024 9:15 AM EDT Office Visit Pratibha Casey [address] [place] [address] Andrea Mcclendon, [address] [place] [address] 04/03/2024 9:40 AM EDT Office Visit Pulmonary Medicine Pratibha Anguiano [address] [place] [phone] Chance Zimmerman MD [address] [facility] [place] [address] 04/07/2024 8:30 PM EDT PulmDiagnostic Sleep Lab, [address] [place] [address] [facility], Sleep Med Night Sleep [address] [place] [address] [place] [id number] 04/25/2024 2:15 PM EDT Office Visit Ophthalmology [place] [address] [facility] [place] [address] Andrea [facility] [address] 06/18/2024 7:40 AM EDT Office Visit [facility], [place] [address] [facility] [place] [address] Piper Cazares DO [address] [facility] [place] [address] 07/14/2024 1:00 PM EDT PulmDiagnostic Pulmonary Function Lab, [address] [place] [address] [facility], Pulm Function Room [address] [place] [address] [place] [id number] 07/14/2024 2:00 PM EDT PulmDiagnostic Pulmonary Function Lab, [address] [address] [facility], Pulm Function Room [address] [place] [address] [place] [id number] 07/23/2024 3:20 PM EDT Office Visit Pulmonary Medicine [facility] [address] [place] [phone] Chance Zimmerman MD [address] [place] [address] Scheduled Procedures Name Priority Associated Diagnoses Date/Ti [...] exists DISCUSS TOBACCO CESSATION (REFER TO SMARTSET #8953) 10/15/2024 10/15/2023, 05/31/2023, 01/12/2023, Additional history exists Diabetic Eye Exam 12/10/2024 12/10/2023, , 12/10/2023, Additional history exists Diabetic Foot Exam 02/12/2025 02/13/2024 O2 ASSESSMENT COMPLETED IN PAST YEAR FOR COPD 02/25/2025 02/26/2024 CKD PHOS USE SMARTSET 14892 03/09/202502/18, 12/19/2023, 09/12/2023, Additional history exists CKD HGB USE SMARTSET 96437 03/11/202503/11, 03/10/2024, 03/09/2024, Additional history exists Lipid [...] this encounter Medical Devices Implanted Type Area Fraternity Adviser Device Identifier Shelf Expiration Date Model / Serial / Lot Lens 20.5 [employer] - [id number] - [id number] Implanted:Qty: 1 on 02/26/2024 by Andrea Mcclendon DO at OR [facility] Left: Eye [employer] 08/25/2026 CNA0T0.205 / [id number] / documented as of this encounter [...] the patient have Health Care Power of Poultry Cleaner? No Code Status History Code Status Date [...] the patient have Health Care Power of Poultry Cleaner? No Bag Valve Device? Yes Intubation? No [...] Agents on File Name Relationship Healthcare Agent [facility] Martinez GRIGSBY Adult Child First Alternate Health Care Agent Peter Grigsby Adult Child First Alternate Health Care Agent Jazmine Corona Adult Child First Alternate Health Care Agent Care Teams Manager Ship Relationship Specialty Start Date End Date Marcos Maurice PA-C [address] [facility] [place] [address] PCP - General Physician Emu Farmer 11/22/23 documented as of this encounter
--- OUTSIDE RECORDS SUMMARY | 2024-04-14 12:53 | External Medical Summary | Summary of Care ---
Author Name Unknown Organization [facility] Address [address] [place] [address] Phone [phone] Care Team Providers Care Technical Training Instructor Name Role Phone Josafat Marcosananda Caldwell PA-C Primary Care Provide r Reason for Visit * Reason Onset Date Comments Hospital Follow-Up 03/12/2024 [facility] 03/11 Encounter Details Date Type Department Care Team (Late st Contact Info) Description 03/12/2024 Telephone Ancillary [facility] [address] [facility] [place] [address] Beverly Cisneros, RN Hospital Follow-Up ([facility] 03/11) Allergies Active Allergy Reactions Criticality Noted Date Comments Cortisone Muscle pain Medium 04/09/2017 At site of shot Bee Venom Anaphylaxis High 06/25/2021 Hydrocortisone High 12/25/2021 Other reaction(s): PAIN,UNABLE TO MOVE documented as of this encounter (statuses as of 03/12/2024) Medications Medication Sig Dispensed Refills Start Date [...] Tablet (Crestor)Indications :Cor pulmonale, chronic ([facility]),COPD, group D, by GOLD 2017 classification ([facility]),Hypertensive heart and kidney disease with chronic diastolic congestive heart failure and stage 3a chronic kidney disease ([facility]),Dyslipidemia,E ssential hypertension with goal blood pressure less than 140/90 Take by mouth 1 Tablet in the morning. 90 Tablet 3 09/22/2022 Active Empagliflozin 10 MG Oral Tablet (Jardiance)Indicatio ns:Type 2 diabetes mellitus with stage 3a chronic kidney disease, without long-term current use of insulin ([facility]) Take 1 Tablet by mouth in the morning. 30 Tablet 11 11/22/2022 Active metFORMIN HCl 1000 MG Oral Tablet (Glucophage)Indicati ons:Type 2 diabetes mellitus with stage 3a chronic kidney disease, without long-term current use of insulin ([facility]) Take 1 Tablet by mouth 2 times a day with morning and evening meals. 60 Tablet 5 11/22/2022 Active Azelastine HCl 0.1 % Nasal Solution (Astelin) Administer 1 [place] into nostril in the morning and 1 [place] before bedtime. 30 mL 12 01/12/2023 Active Furosemide 80 MG Oral Tablet (Lasix)Indications:G eneralized osteoarthritis,Chron ic diastolic heart failure ([facility]) Take 1 Tablet by mouth in [...] 6 05/31/2023 Active Vitamin D3 50 MCG (1999) Oral CapsuleIndications:V itamin D deficiency Take 1 Capsule by mouth in the morning. 90 Capsule 1 06/21/2023 Active Cetirizine HCl 10 MG Oral CapsuleIndications:V iral URI with cough,Acute exacerbation of chronic obstructive pulmonary disease (COPD) ([facility]) Take 1 Capsule by mouth at bedtime. [...] D, by GOLD 2017 classification ([facility]) Inhale 1 Vial via nebulizer every 4 hours as needed for Wheezing or Shortness of Breath. 180 mL 11 01/31/2024 Active Albuterol Sulfate (2.5 MG/3ML) 0.083% Inhalation Nebulization Solution (Proventil)Indicatio ns:COPD, group D, by GOLD 2017 classification ([facility]) Inhale 1 Vial via nebulizer every [...] at bedtime. 3.5 g 11 03/05/2024 Active Azithromycin 500 MG Oral Tablet (Zithromax) Take 1 Tablet by mouth in the morning for 1 day. 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 Educated on use. Must call [facility] when initiated so further assessment can be made documented as of this encounter (statuses as of 03/12/2024) Immunizations Name Administration Dates Next Due COVID-19 mRNA, LNP-s, No Pre serve, 2-Dose Series (Moderna) 01/28/2021 Pneumococcal Conjugate Vacci ne, 20-valent ([id number]) 05/10/2022 Pneumococcal Polysaccharide PPV23 (Pneumovax) 11/17/2013 Seasonal [...] encounter Miscellaneous Notes * Telephone Encounter - Beverly Cisneros RN - 03/12/2024 11:34 AM EDT Transitions of Care Note Reason for Referral:Recent Admission Phone visit for follow up: BRYAN Admitted to: [facility], Date: 03/08 Discharged to: home, Date: 03/11 Diagnosis driving hospitalization: *Principal Diagnosis - COPD exacerbation (HCC) Source/Contact: Patient SUBJECTIVE Consent: Verbal consent for review of hospital discharge: Yes REVIEW OF SYSTEMS Patient/Other Reports: Current patient/caregiver problems or concerns: none at this time CV: Denies problems Pulmonary: pt wearing her oxygen as directed. Reports her sats are in the low 90's at rest Chills/Sweats/Fever:Denies chills/sweats Denies fever Appetite:Denies problems such as nausea, vomiting, burning, decreased appetite Current diet: as before Bowel: denies problems Bladder: denies problems Wound (If applicable): N/A Pain:Denies Sleep:Denies problems FUNCTIONAL STATUS: ADL'S: Needs Assistance With:N/A as pt is independent IADL'S: Needs Assistance With:N/A as pt is independent Cognitive and Mental Health: denies problems, alert and oriented x 3, and able to communicate, understand instructions, process information. MEDICATION RECONCILIATION Medications: Discharge med list reviewed with patient or caregiver New medication(s) filled since hospitalization- zithromax, prednisone, tessalon perles, imodium Reports all medications taken as prescribed. Denies side effects OBJECTIVE ASSESSMENT Medication Risk Assessment: No risks identified Did patient fail outpatient treatment? No Discharge instructions available for review? Yes PLAN Symptom Monitoring Interventions:Member/caregiver education - signs and symptoms to contact PrimaryCare (DO NOT DELETE-Three cole symptoms patient is to report to PCP) 1. Worsening SOB 2. Sats dipping below 90% while at rest 3. Worsening cough despite using Tessalon perles Commercial Loan ReviewerFinal Expense Agent of Care interventions/Action Plan: Medication reconciliation and 5 - 7 day follow-up with PCP in place - Date: 03/18 Educated on role of BRYAN completed with patient/caregiver. Educated patient/caregiver on patient right to have input on BRYAN plan of care. Verification of Home Health/DME if indicated: NO Identified Care Gaps: Yes Care Gaps closed this call: Appointment made or confirmed and Transition of Care follow-up communication Re-evaluation of Plan of Care and progress towards goals achievement: Patient education this visit: Verbal, as above Plan to follow-up as previously scheduled, instructed to call Primary Care Provider with change in symptoms or as needed before next follow-up, discharge needs met, verbalizes understanding and agrees with plan. Beverly Cisneros, RN documented in this encounter Plan of Treatment Upcoming Encounters Date Type Department Care Team (Latest Contact Info) Description 03/17/2024 12:30 PM EDT Appointment Bear Guillenwn [address] [place] [address] [place] [address] 03/17/2024 2:00 PM EDT Appointment Radiology, [address] [place] [address] 03/18/2024 8:20 AM EDT Office Visit [facility] [address] [place] [address] Marcos Maurice PA-C [address] [place] [address] 03/25/2024 9:24 AM EDT Hospital Encounter OR GL, Operating Room, [facility] - 4th Floor [address] [place] [address] Andrea Mcclendon, DO [address] [place] [address] 03/25/2024 9:24 AM EDT - 03/25/2024 10:15 AM EDT Surgery OR [facility], Operating Room, [facility] - 4th Floor [address] [place] [address] Andrea Mcclendon, [address] [place] [address] EXTRACAPSULAR CATARACT REMOVAL WITH INTRAOCULAR LENS 03/26/2024 8:00 AM EDT Office Visit Ophthalmology [place] [address] [place] [address] Andrea Mcclendon, [facility] [place] [address] 04/02/2024 9:15 AM EDT Office Visit [place] [address] [place] [address] Andrea Mcclendon, [address] [place] [address] 04/03/2024 9:40 AM EDT [facility] [place] [address] [place] [phone] Chance Zimmerman MD [address] [place] [address] 04/07/2024 8:30 PM EDT PulmDiagnostic Sleep Lab, [address] [place] [address] [facility], Sleep Med Night Sleep [address] [facility] [place] [address] 04/25/2024 2:15 PM EDT Office Visit Ophthalmology, [place] [address] [place] [address] [address] Andrea Mcclendon DO [address] [facility] [place] [address] 06/18/2024 7:40 AM EDT Office Visit [facility] [address], [address] [facility] [place] [address] Piper Cazares DO [address] [facility] [place] [address] 07/14/2024 1:00 PM EDT PulmDiagnostic Pulmonary Function Lab, [facility] [address] [facility] [address] [facility], [facility] 1 [address] [facility] [address] 07/14/2024 2:00 PM EDT PulmDiagnostic Pulmonary Function Lab, [facility] [address] [facility] [place] [address] [facility], Pulm Function Room 2 [address] [facility] [address] 07/23/2024 3:20 PM EDT Office Visit Pulmonary Medicine [place] [address] [place] [phone] Chance Zimmerman MD [address] [place] [address] Scheduled Procedures Name Priority Associated Diagnoses Date/Ti [...] exists DISCUSS TOBACCO CESSATION (REFER TO SMARTSET #6071) 10/15/2024 10/15/2023, 05/31/2023, 01/12/2023, Additional history exists Diabetic Eye Exam 12/10/2024 12/10/2023, , 12/10/2023, Additional history exists Diabetic Foot Exam 02/12/2025 02/13/2024 O2 ASSESSMENT COMPLETED IN PAST YEAR FOR COPD 02/25/2025 02/26/2024 CKD PHOS USE SMARTSET 79406 03/09/202502/18, 12/19/2023, 09/12/2023, Additional history exists CKD HGB USE SMARTSET 44225 03/11/202503/11, 03/10/2024, 03/09/2024, Additional history exists Lipid [...] this encounter Medical Devices Implanted Type Area Director Appointment Device Identifier Shelf Expiration Date Model / Serial / Lot Lens 20.5 [place] - [id number] - [id number] Implanted:Qty: 1 on 02/26/2024 by Andrea Mcclendon DO at OR [facility] Left: [employer] 08/25/2026 [id number] / [id number] / documented as of this encounter [...] the patient have Health Care Power of Securities Broker? No Code Status History Code Status Date [...] the patient have Health Care Power of Securities Broker? No Bag Valve Device? Yes Intubation? No [...] Agents on File Name Relationship Healthcare Agent [facility] Communication Martinez MEGAN Adult Child First Alternate Health Care Agent Peter Grigsby Adult Child First Alternate Health Care Agent Jazmine Corona Adult Child First Alternate Health Care Agent Care Teams Technical Training Instructor Relationship Specialty Start Date End Date Marcos Maurice PA-C [address] [facility] [place] [phone] PCP - General Physician Director Corporate Communications 11/22/23 documented as of this encounter
--- OUTSIDE RECORDS SUMMARY | 2024-04-14 12:53 | External Medical Summary | Summary of Care ---
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 Name Role Phone Marcos Maurice PA-C Primary Care Provide r Reason for Visit * Reason Comments Short of Breath * Auth/Cert Specialty Diagnoses / Procedures Referred By Frantz t Referred To Contact [facility] [address] [place] [address] Phone: [phone] Emergency Medicine [address] [address] Referral ID Status Reason Start Date Expiration Date Visits Re quested Visits Authorized [id number] Encounter Details Date Type Department Care Team (Latest Contact Info) Description 03/08/2024 1:34 PM EDT - 03/11/2024 1:38 PM EDT Hospital Encounter 3B [facility] 3rd Floor [address] [place] [address] Reg Herrmann MD [address], [place] [id number] Tim Lr MD [address] [place], [place] [address] [place], [place] [id number] Andrea Staley MD [address] [place], [place] [address] [place], [place] [id number] Jesse Thurston DO [address] [facility] [place] [id number] Pt Handout (on AVS) Discharge Disposition: Home - Self Care Allergies [...] , group D, by GOLD 2017 classification ([facility]),Chronic hypoxemic respiratory failure ([facility]) 2 LPM at bedtime & at rest & 3 LPM with all exertion via n/c DX J 44.9 1 Each 0 2 Active Fluticasone Propionate 50 MCG/ACT Nasal Suspension (Flonase) Administer into each nostril 2 Sprays in the morning. 15.8 mL 2 2 Active Rosuvastatin Calcium 20 MG Oral Tablet (Crestor)Indication s:Cor pulmonale, chronic ([facility]),COPD, group D, by GOLD 2017 classification ([facility]),Hypertensive heart and kidney disease with chronic diastolic congestive heart failure and stage 3a chronic kidney disease ([facility]),Dyslipidemia, Essential hypertension with goal blood pressure less than 140/90 Take by mouth 1 Tablet in the morning. 90 Tablet 3 2 Active Empagliflozin 10 MG Oral Tablet (Jardiance)Indicati ons:Type 2 diabetes mellitus with stage 3a chronic kidney disease, without long-term current use of insulin ([facility]) Take 1 Tablet by mouth in the morning. 30 Tablet 11 3 Active metFORMIN HCl 1000 MG Oral Tablet (Glucophage)Indicat ions:Type 2 diabetes mellitus with stage 3a chronic kidney disease, without long-term current use of insulin ([facility]) Take 1 Tablet by mouth 2 times a day with morning and evening meals. 60 Tablet 5 3 Active Azelastine HCl 0.1 % Nasal Solution (Astelin) Administer 1 [place] into nostril in the morning and 1 [place] before bedtime. 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 180 Tablet 3 3 Active Potassium Chloride 20 MEQ Oral PacketIndications:H ypokalemia Take 20 mEq by mouth in the morning. 30 Packet 5 3 Active Trelegy Ellipta 100-62.5-25 MCG/ACT Aerosol Powder Breath Activated (Fluticasone-Umecli dinium-Vilanterol) Inhale 1 Puff by mouth in the morning. 60 Each 6 3 Active Vitamin D3 50 MCG (2000 UT) Oral CapsuleIndications: Vitamin D deficiency Take 1 Capsule by mouth in the morning. 90 Capsule 1 3 Active Cetirizine HCl 10 MG Oral CapsuleIndications: Viral URI with cough,Acute exacerbation of chronic obstructive pulmonary disease (COPD) (HCC) Take 1 Capsule by mouth at bedtime. 90 Capsule 3 3 Active Melatonin 3 MG Oral Tablet Take 1 Tablet by mouth at bedtime. 30 Tablet 1 3 Active Albuterol Sulfate HFA 108 (90 Base) MCG/ACT Inhalation Aerosol SolutionIndications :COPD, severe (HCC) Take 2 puffs every four hours as need for shortness of breath or wheezing 18 g 3 4 Active Gabapentin 600 MG Oral Tablet (Neurontin)Indicati ons:Generalized osteoarthritis Take 1 Tablet by mouth in the morning and 1 Tablet before bedtime. 180 Tablet 3 4 Active Eliquis 5 MG Oral TabletIndications:P ersonal history of DVT (deep vein thrombosis) take 1 tablet by mouth every morning and at bedtime 60 Tablet 3 4 Active rOPINIRole HCl 2 MG Oral Tablet (Requip)Indications :Primary insomnia,Restless legs syndrome Take 1 Tablet by mouth in the morning and 1 Tablet before bedtime. 60 Tablet 5 4 Active traZODone HCl 100 MG Oral Tablet (Desyrel) Take 1 Tablet by mouth at bedtime. 30 Tablet 5 4 Active Sertraline HCl 100 MG Oral Tablet (Zoloft)Indications :MARCIE (generalized anxiety disorder),Recurrent major depressive disorder, in partial remission (HCC) Take 1 Tablet by mouth in the morning. 90 Tablet 3 4 Active Nicotine 21 MG/24HR Transdermal Patch 24 Hour (Nicoderm CQ)Indications:COPD exacerbation (HCC),Tobacco use disorder Place 1 Patch over 24 hours topically on the skin in the morning. On upper body/upper arm, change once a day for 6 weeks.. 42 Patch 1 4 Active Albuterol Sulfate (2.5 MG/3ML) 0.083% Inhalation Nebulization Solution (Proventil)Indicati ons:COPD, group D, by GOLD 2017 classification ([facility]) Inhale 1 Vial via nebulizer every 4 hours as needed for Wheezing or Shortness of Breath. 180 mL 11 4 Active Albuterol Sulfate (2.5 MG/3ML) 0.083% Inhalation Nebulization Solution (Proventil)Indicati ons:COPD, group D, by GOLD 2017 classification ([facility]) Inhale 1 Vial via nebulizer every 4 hours as needed for Wheezing or Shortness of Breath. 180 mL 11 4 Active buPROPion HCl ER (XL) 300 MG Oral Tablet Extended Release 24 Hour (Wellbutrin XL)Indications:MDD (major depressive disorder), recurrent episode, mild (HCC),MARCIE (generalized anxiety disorder),Recurrent major depressive disorder, in partial remission (HCC) TAKE ONE TABLET BY MOUTH EVERY MORNING 90 Tablet 1 4 Active prednisoLONE Acetate 1 % Ophthalmic Suspension (Pred Forte) Instill 1 Drop into the left eye 4 times a day for 7 days, THEN 1 Drop 3 times a day for 7 days, THEN 1 Drop 2 times a day for 7 days, THEN 1 Drop every evening for 7 days. 10 mL 1 4 04/02/20 24 Active Erythromycin 5 MG/GM Ophthalmic Ointment Instill 0.25 Inches into both eyes at bedtime. 3.5 g 11 4 Active Azithromycin 500 MG Oral Tablet (Zithromax) Take 1 Tablet by mouth in the morning for 1 day. 1 Tablet 0 4 03/13/20 24 Active Benzonatate 100 MG Oral Capsule (Tessalon Perles) Take 1 Capsule by mouth in the morning and 1 Capsule at noon and 1 Capsule before bedtime. 20 Capsule 0 4 Active predniSONE 20 MG Oral Tablet (Deltasone) Take 2 Tablets by mouth daily for 1 day, THEN 1 Tablet daily for 3 days, THEN 0.5 Tablet daily for 3 days. 7 Tablet 0 4 03/19/20 24 Active Loperamide HCl 2 MG Oral Capsule (Imodium) Take 1 Capsule by mouth every 4 hours as needed for Diarrhea. 30 Capsule 0 4 Active predniSONE 20 MG Oral Tablet (Deltasone)Indicati ons:COPD exacerbation (HCC) Take 3 tabs for 3 days, 2 tabs for 3 days, 1 tab for 3 days, 1/2 tab for 3 days 20 Tablet 0 4 03/11/20 24 Discontinued levoFLOXacin 500 MG Oral Tablet Take 1 Tablet by mouth in the morning for 7 days. until gone.. 7 Tablet 0 4 03/11/20 24 Discontinued Hospital, Clinic, or Other Facility Administered Medication [...] - TRES o Class D - Inhaled Jlpmmidbtaentk-WLPS-GYNA Combination Inhaler (Trellegy) o PD-4 Inhibitor (Daliresp) [...] oximeter to monitor SpO2, advised to contact [facility] if <90% and titrate as necessary, Tobacco use disorder 04/21/2021 Last Assessment & Plan: Referral to [facility] for assistance in getting nicoderm patches covered [...] Last Assessment & Plan: Currently followed by mental hygienist--not on any antihistamines currently, has follow up [...] - TRES o Class D - Inhaled Pjhtqfveawrmdr-CKFS-NBZY Combination Inhaler (Trellegy) o PD-4 Inhibitor (Daliresp) Self-Management plan o Prednisone 40mg daily for 5 days Rx o High frequency nebulizer treatments every 4-6 hours around the clock Exacerbation plan o Prednisone rescue kit Rescue kit given today. Educated on use. Must call [facility] when initiated so further assessment can be made documented as of this encounter (statuses as of 03/12/2024) Immunizations Name Administration Dates Next Due COVID-19 mRNA, LNP-s, No Pre serve, 2-Dose Series (Moderna) 01/28/2021 Pneumococcal Conjugate Vacci ne, 20-valent ([id number]) 05/10/2022 Pneumococcal Polysaccharide PPV23 (Pneumovax) 11/17/2013 Seasonal [...] Date Smoking Tobacco: Every Day Cigarettes 1 50 Started: 11/28/1973; Last attempted [...] Sign Reading Time Taken Comments Blood Pressure 103/59 03/11/2024 11:02 AM EDT Pulse 91 03/11/2024 11:02 AM EDT Temperature 36 C (96.8 F) 03/11/2024 11: 02 AM EDT Respiratory Rate 14 03/11/2024 11:0 2 AM EDT Oxygen Saturation 93% 03/11/2024 11: 02 AM EDT Inhaled Oxygen Concentration - - Weight 94.2 kg (207 lb 11.2 oz) 03/11/2024 5:19 AM EDT Height 170.2 cm (5' 7") 03/08/2024 6:28 PM EDT Body Mass Index 32.53 03/08/2024 6:28 PM EDT documented in this encounter Functional Status [...] No 03/08/2024 documented as of this encounter Discharge Summaries * Jesse Thurston, - 03/11/2024 9:14 AM EDT Images from the original note were not included. [address] [address] Admission Date: 03/08/2024 Discharge Date: 03/11/2024 RECOMMENDED TO DO FOR NEXT PROVIDER(S): Pulmonary appointment on 04/03/24 Sleep medicine appointment on 04/07/2024 Supplemental oxygen 3 L at rest and 8 L with activity REASON(S) FOR MEDICATION CHANGE(S): Azithromycin for 1 more day Prednisone taper. Prednisone 40 mg for 1 day followed by 20 mg for 3 days followed by 10 mg for 3 days DISPOSITION ON DISCHARGE: home Active Hospital Problems Diagnosis *Principal Diagnosis - COPD exacerbation (HCC) Closed nondisplaced fracture of right clavicle with routine healing Type 2 diabetes mellitus with stage 3a chronic kidney disease, without long-term current use of insulin (HCC) Acute on chronic respiratory failure with hypoxia and hypercapnia (HCC) Chronic hypoxemic respiratory failure (HCC) Chronic diastolic heart failure (HCC) Resolved Hospital Problems No resolved problems to display. ADMISSION HISTORY & PHYSICAL EXAM (focused): per Dr Lr 61 y/o F patient with severe COPD, GERD, obesity , Chronic rhinitis, CHronic diastolic heart failure, CHronic hypoxic respiratory failure (on 4L of oxygen at home), Pulmonary hypertension , Hx of PE/DVT on eliquis presented to the ER with increasing shortness of breath, cough since 2 days. Her shortness of breath is eric worth when she walks. Patient tried to using her nebulizer treatments at homewithout much relief, hence came to the ER. She doesn't have any rescue prednisone or z pack at home. She complains of productive cough with yellowish sputum She still smokes 1 cigarette per day Spoke to ED provider, ER course briefly : she was placed on 5L NC when she came. Her sats improved with duoneb, however with ambulation her spo2 dropped to 84% - o2 needed to be increased to 6L. Lab showed normal proBNP, respiratory PCR negative ; otherwise unremarkable. Chest x-ray was normal CT PE showed no PE; left lower lobe 5 mm nodule without interval change; hepatic to cm hypodensity in right hepatic lobe- consider MRI outpatient I personally reviewed old medical records; EKG shows NSR and CXR no acute findings PHYSICAL EXAMINATION: BP: 143 mmHg/79 mmHg (03/08/24 1700) Pulse: 96 (03/08/24 1700) Temp: 36.28 C (03/08/24 1218) Temp Summary: Temp Min: 36.3 C (97.3 F) Max: 36.3 C (97.3 F) SpO2: 92 % (03/08/24 1700) O2 flow rate: 4 L/MIN (03/08/24 1649) Supplemental O2 Delivery: Nasal Cannula (03/08/24 1649) Constitutional: ill appearing ; gets tachypneic with talking HEENT: normal: normocephalic, atraumatic; n CV: normal rate and rhythm, no murmur, gallops or rub Chest: diminished breath sounds, rales noted at lung bases Abdomen: normal: soft, bowel sounds normal, no masses, tenderness or organomegaly Extremities: no edema, Skin: scratches noted on RLE; with scab wounds; redness noted on b/l shins however no warmth noted Neuro: alert, oriented to person, place, and time, , cranial nerves intact, reflexes normal and symmetric, sensory normal Psych: normal mood and affect, HOSPITAL COURSE (focused): 63-year-old woman presenting with SOB/MACHADO with productive cough and wheezing. Admitted for acute onchronic respiratory failure with hypoxia and hypercapnia in the setting of COPD exacerbation. Patient evaluated by Pulmonary who was in agreement with continuing prednisone, inhalers, and azithromycin. Patient was on 5 L supplemental oxygen. States she is normally on 4 L at rest and 5 L with activity at home. During admission patient refused CPAP machine. Ambulatory pulse ox was performed patientwill need 3 L at rest and 8 L with activity. Patient will also need bedside commode due to being confined to 1 room and unable to access main bathroom. She was placed on as needed Imodium for diarrhea . She will need to follow-up with her coater operator, appointment has been set for April 03. Operations & Procedures: none Complications: none significant Significant Lab and Imaging Results: Results for orders placed or performed during the hospital encounter of 03/08/24 COMPREHENSIVE METABOLIC PANEL Result Value Ref Range BUN 19 6 - 20 mg/dL Creatinine 0.9 0.5 - 1.0 mg/dL Estimated Glomerular Filtration Rate 74 >=60 mL/min Sodium 140 135 - 146 mmol/L Potassium 3.9 3.5 - 5.1 mmol/L Chloride 97 (L) 98 - 107 mmol/L CO2 33 (H) 22 - 32 mmol/L Anion Gap 10 7 - 15 mmol/L Glucose 212 (H) 70 - 120 mg/dL Albumin 3.8 3.8 - 5.0 g/dL AST 12 10 - 35 U/L Alkaline Phosphatase 106 35 - 130 U/L Bilirubin, Total <0.2 <=1.2 mg/dL Calcium 8.7 8.4 - 10.2 mg/dL Protein 6.4 6.0 - 8.3 g/dL ALT 16 10 - 35 U/L BNP, NT-PRO Result Value Ref Range BNP, NT-Pro 147 <300 pg/mL TROPONIN T, HIGH SENSITIVITY Result Value Ref Range Troponin T, High Sensitivity 54 (H) <=14 ng/L PT INR Result Value Ref Range Prothrombin Time 12.1 11.6 - 15.2 seconds INR 0.9 0.8 - 1.2 RESPIRATORY PATHOGEN PANEL, PCR Result Value Ref Range Adenovirus by PCR Negative Negative Coronavirus 229E by PCR Negative Negative Coronavirus HKU1 by PCR Negative Negative Coronavirus NL63 by PCR Negative Negative Coronavirus OC43 by PCR Negative Negative Coronavirus SARS-CoV-2 by PCR Negative Negative Human Metapneumovirus by PCR Negative Negative Rhinovirus/Enterovirus by PCR Negative Negative Influenza A Virus by PCR Negative Negative Influenza B Virus by PCR Negative Negative Parainfluenza Virus 1 by PCR Negative Negative Parainfluenza Virus 2 by PCR Negative Negative Parainfluenza Virus 3 by PCR Negative Negative Parainfluenza Virus 4 by PCR Negative Negative Respiratory Syncytial Virus by PCR Negative Negative Bordetella pertussis by PCR Negative Negative Chlamydia pneumoniae by PCR Negative Negative Mycoplasma pneumoniae by PCR Negative Negative Bordetella parapertussis by PCR Negative Negative CBC Result Value Ref Range WBC 8.12 4.00 - 10.80 K/uL RBC 3.56 3.85 - 5.15 M/uL HGB 10.1 (L) 12.0 - 15.3 g/dL HCT 33.9 (L) 36.0 - 45.2 % MCV 95.2 81.5 - 97.5 fL MCH 28.4 27.0 - 34.0 pg MCHC 29.8 32.0 - 36.0 g/dL RDW 15.9 11.5 - 15.5 % PLT 267 140 - 400 K/uL MPV 9.1 6.6 - 11.1 fL nRBCs 0 <=0 /100 WBCs DIFFERENTIAL, AUTOMATED Result Value Ref Range WBC 8.12 4.00 - 10.80 K/uL Neutrophils % 78.0 (H) 40.0 - 75.0 % Lymphocytes % 12.8 (L) 18.0 - 42.0 % Monocytes % 6.2 1.0 - 11.0 % Eosinophils % 2.3 0.0 - 6.0 % Basophils % 0.2 0.0 - 2.0 % Immature Granulocytes % 0.5 0.0 - 2.0 % Absolute Neutrophils 6.33 1.80 - 7.70 K/uL Absolute Lymphocytes 1.04 1.00 - 4.80 K/ul Absolute Monocytes 0.50 0.00 - 1.10 K/uL Absolute Eosinophils 0.19 0.00 - 0.70 K/uL Absolute Basophils 0.02 0.00 - 0.20 K/uL Absolute Immature Granulocytes 0.04 0.00 - 0.20 K/uL TROPONIN T, HIGH SENSITIVITY Result Value Ref Range Troponin T, High Sensitivity 49 (H) <=14 ng/L CRP (INFLAMMATORY MARKER) Result Value Ref Range CRP (Inflammatory Marker) 11 (H) <=5 mg/L TROPONIN T, HIGH SENSITIVITY Result Value Ref Range Troponin T, High Sensitivity 47 (H) <=14 ng/L BLOOD GAS, ARTERIAL Result Value Ref Range Temperature 37.0 C pH, Arterial 7.359 7.350 - 7.450 units pCO2, Arterial 59.3 (HH) 35.0 - 45.0 mmHg pO2, Arterial 60.1 (L) 75.0 - 100.0 mmHg Base Excess, Arterial 6.3 (H) -2.0 - 2.0 mmol/L HGB 10.8 (L) 12.0 - 15.3 g/dL Oxyhemoglobin, Arterial 87.5 (L) 94.0 - 99.0 % total Hgb Carboxyhemoglobin, Whole Blood 2.9 (H) <=1.5 % total Hgb Methemoglobin, Whole Blood 0.6 <=1.5 % total Hgb Reduced Hemoglobin, Arterial 9.0 (H) 0.0 - 5.0 % total Hgb O2 Content, Arterial 13.3 (L) 15.0 - 24.0 %vol FiO2 Not Provided % O2 Flow, Arterial 4 L/min Bicarbonate, Whole Blood 32.6 (H) 23.0 - 31.0 mmol/L CBC Result Value Ref Range WBC 10.00 4.00 - 10.80 K/uL RBC 3.61 3.85 - 5.15 M/uL HGB 10.3 (L) 12.0 - 15.3 g/dL HCT 34.6 (L) 36.0 - 45.2 % MCV 95.8 81.5 - 97.5 fL MCH 28.5 27.0 - 34.0 pg MCHC 29.8 32.0 - 36.0 g/dL RDW 15.5 11.5 - 15.5 % PLT 283 140 - 400 K/uL MPV 9.4 6.6 - 11.1 fL nRBCs 0 <=0 /100 WBCs BASIC METABOLIC PANEL Result Value Ref Range BUN 23 (H) 6 - 20 mg/dL Creatinine 0.8 0.5 - 1.0 mg/dL Estimated Glomerular Filtration Rate 78 >=60 mL/min Sodium 142 135 - 146 mmol/L Potassium 4.4 3.5 - 5.1 mmol/L Chloride 102 98 - 107 mmol/L CO2 30 22 - 32 mmol/L Anion Gap 10 7 - 15 mmol/L Glucose 235 (H) 70 - 120 mg/dL Calcium 9.1 8.4 - 10.2 mg/dL MAGNESIUM Result Value Ref Range Magnesium 2.7 (H) 1.5 - 2.6 mg/dL PHOSPHORUS Result Value Ref Range Phosphorus 3.4 2.5 - 4.8 mg/dL CBC Result Value Ref Range WBC 9.86 4.00 - 10.80 K/uL RBC 3.53 3.85 - 5.15 M/uL HGB 10.1 (L) 12.0 - 15.3 g/dL HCT 33.6 (L) 36.0 - 45.2 % MCV 95.2 81.5 - 97.5 fL MCH 28.6 27.0 - 34.0 pg MCHC 30.1 32.0 - 36.0 g/dL RDW 15.5 11.5 - 15.5 % PLT 305 140 - 400 K/uL MPV 9.7 6.6 - 11.1 fL nRBCs 0 <=0 /100 WBCs BASIC METABOLIC PANEL Result Value Ref Range BUN 28 (H) 6 - 20 mg/dL Creatinine 1.1 (H) 0.5 - 1.0 mg/dL Estimated Glomerular Filtration Rate 58 (L) >=60 mL/min Sodium 145 135 - 146 mmol/L Potassium 3.5 3.5 - 5.1 mmol/L Chloride 97 (L) 98 - 107 mmol/L CO2 38 (H) 22 - 32 mmol/L Anion Gap 10 7 - 15 mmol/L Glucose 157 (H) 70 - 120 mg/dL Calcium 8.7 8.4 - 10.2 mg/dL CBC Result Value Ref Range WBC 8.20 4.00 - 10.80 K/uL RBC 3.56 3.85 - 5.15 M/uL HGB 10.0 (L) 12.0 - 15.3 g/dL HCT 32.7 (L) 36.0 - 45.2 % MCV 91.9 81.5 - 97.5 fL MCH 28.1 27.0 - 34.0 pg MCHC 30.6 32.0 - 36.0 g/dL RDW 15.6 11.5 - 15.5 % PLT 308 140 - 400 K/uL MPV 9.7 6.6 - 11.1 fL nRBCs 0 <=0 /100 WBCs BASIC METABOLIC PANEL Result Value Ref Range BUN 31 (H) 6 - 20 mg/dL Creatinine 1.1 (H) 0.5 - 1.0 mg/dL Estimated Glomerular Filtration Rate 57 (L) >=60 mL/min Sodium 142 135 - 146 mmol/L Potassium 3.9 3.5 - 5.1 mmol/L Chloride 96 (L) 98 - 107 mmol/L CO2 32 22 - 32 mmol/L Anion Gap 14 7 - 15 mmol/L Glucose 129 (H) 70 - 120 mg/dL Calcium 8.5 8.4 - 10.2 mg/dL GLUCOSE METER, POINT OF CARE Result Value Ref Range Glucose Meter 483 (H) 70 - 120 mg/dL GLUCOSE METER, POINT OF CARE Result Value Ref Range Glucose Meter 399 (H) 70 - 120 mg/dL GLUCOSE METER, POINT OF CARE Result Value Ref Range Glucose Meter 237 (H) 70 - 120 mg/dL GLUCOSE METER, POINT OF CARE Result Value Ref Range Glucose Meter 201 (H) 70 - 120 mg/dL GLUCOSE METER, POINT OF CARE Result Value Ref Range Glucose Meter 222 (H) 70 - 120 mg/dL GLUCOSE METER, POINT OF CARE Result Value Ref Range Glucose Meter 352 (H) 70 - 120 mg/dL GLUCOSE METER, POINT OF CARE Result Value Ref Range Glucose Meter 225 (H) 70 - 120 mg/dL GLUCOSE METER, POINT OF CARE Result Value Ref Range Glucose Meter 156 (H) 70 - 120 mg/dL GLUCOSE METER, POINT OF CARE Result Value Ref Range Glucose Meter >500 (HH) 70 - 120 mg/dL Device Comment Result Rechecked GLUCOSE METER, POINT OF CARE Result Value Ref Range Glucose Meter 188 (H) 70 - 120 mg/dL GLUCOSE METER, POINT OF CARE Result Value Ref Range Glucose Meter 304 (H) 70 - 120 mg/dL GLUCOSE METER, POINT OF CARE Result Value Ref Range Glucose Meter 135 (H) 70 - 120 mg/dL GLUCOSE METER, POINT OF CARE Result Value Ref Range Glucose Meter 129 (H) 70 - 120 mg/dL *Note: Due to a large number of results and/or encounters for the requested time period, some results have not been displayed. A complete set of results can be found in Results Review. CT PULMONARY EMBOLUS W CONTRAST Final Result PROCEDURE INFORMATION: Exam: CTA Chest With Contrast Exam date and time: 03/08/2024 4:25 PM Age: 63 years old Clinical indication: Other: Shortness of breath, redness lower extremity, swelling, history of copd, is on eliquis TECHNIQUE: Imaging protocol: Computed tomographic angiography of the chest with contrast. Exam focused on the arteries. 3D rendering (Not supervised by radiologist): MIP and/or 3D reconstructed images were created by the technologist. Radiation optimization: All CT scans at this facility use at least one of these dose optimization techniques: automated exposure control; mA and/or kV adjustment per patient size (includes targeted exams where dose is matched to clinical indication); or iterative reconstruction. Contrast material: OPTI 350; Contrast volume: 100 ml; Contrast route: INTRAVENOUS (IV); COMPARISON: CT PULMONARY EMBOLUS W CONTRAST 12/19/2023 2:41 PM FINDINGS: Limitations: Motion artifact. Pulmonary arteries: No pulmonary emboli identified, on series 7, image 113, heterogeneous attenuation is thought secondary to motion artifact. Small and/or peripheral emboli may not be identifiable. Aorta: The thoracic aorta is not enlarged. Lungs: Stable biapical ywwji-ohvgzkc-plgk-left parenchymal densities suggesting scarring. A 5 mm left lower lobe superior segment pulmonary nodule is present (series 7, image 74), unchanged scattered pulmonary densities suggesting scarring and/or atelectasis are present bilaterally. Pleural spaces: No pleural effusion evident. Heart: The heart is not enlarged. No pericardial effusion. Lymph nodes: No mediastinal or hilar adenopathy identified. Liver: Imaged upper abdomen demonstrates an approximately 2 cm rounded hypodensity inferiorly in the right hepatic lobe, series 7, image 193. The hyperenhancing nodule previously noted in the liver is not readily apparent perhaps due to differences in contrast bolus timing. Gallbladder and bile ducts: Surgical clips consistent with a prior cholecystectomy. Intraperitoneal space: Bones/joints: No acute appearing osseous abnormality identified. . Soft tissues: No soft tissue fluid collection identified.. IMPRESSION IMPRESSION: 1. No pulmonary artery embolus identified 2. Left lower lobe 5 mm pulmonary nodule without interval change. For patients at low risk (minimal or absent history of smoking and of other known risk factors), no routine follow-up is indicated. For patients at high risk (history of smoking or of other known risk factors), consider optional CT Chest at 12 months. Please note that these recommendations do not apply to lung cancer screening, patients with immunosuppression, or patients with known primary cancer. (Reference: Susan) 3. Hepatic 2 cm hypodensity in the right hepatic lobe, incompletely imaged. It is greater in attenuation than typical for a hepatic cyst but is otherwise not fully characterized. Consider follow-up evaluation with liver protocol MRI on a nonemergent basis. REFERENCES: Susan Mahajan et al. Guidelines for Management of Incidental Pulmonary Nodules Detected on CT Images: From the Fleischner Society 2017. Radiology. 2017;284(1):228-243. THIS DOCUMENT HAS BEEN ELECTRONICALLY SIGNED BY SANDRA RICHARDS MD XR CHEST 2 VIEWS Final Result PROCEDURE INFORMATION: Exam: XR Chest Exam date and time: 03/08/2024 12:27 PM Age: 63 years old Clinical indication: Other: SOB; Additional info: Chest pain TECHNIQUE: Imaging protocol: Radiologic exam of the chest. Views: 2 views. COMPARISON: CT PULMONARY EMBOLUS W CONTRAST 12/19/2023 2:41 PM FINDINGS: Lungs: Lungs are hyperexpanded. Increased attenuation noted over the lung bases thought secondary to overlying soft tissues. Pleural spaces: Indistinct costophrenic angles bilaterally unchanged, may reflect small pleural effusions versus pleural thickening. Heart/Mediastinum: Stable mild prominence of the pulmonary interstitium cardiomediastinal silhouette stable. Bones/joints: No acute osseous abnormality identified. IMPRESSION IMPRESSION: Stable chest examination. THIS DOCUMENT HAS BEEN ELECTRONICALLY SIGNED BY SANDRA RICHARDS MD Results Pending at Discharge: Lab Results Pending at Discharge: CBC Routine BASIC METABOLIC PANEL Routine MEDICATION UPDATES AT DISCHARGE START taking these medications INSTRUCTIONS Azithromycin 500 MG Tablet Commonly known as: Zithromax Start taking on: March 12, 2024 Take 1 Tablet by mouth in the morning for 1 day. Benzonatate 100 MG Capsule Commonly known as: Tessalon Perles Take 1 Capsule by mouth in the morning and 1 Capsule at noon and 1 Capsule before bedtime. CHANGE how you take these medications INSTRUCTIONS predniSONE 20 MG Tabs Tablet Commonly known as: Deltasone Start taking on: March 12, 2024 What changed: See the new instructions. Take 2 Tablets by mouth daily for 1 day, THEN 1 Tablet daily for 3 days, THEN 0.5 Tablets daily for3 days. CONTINUE taking these medications INSTRUCTIONS Acetaminophen 500 MG Tablet Commonly known as: Tylenol Notes to patient: Used to ease pain and fever. Take 1 Tablet by mouth every 6 hours as needed. * albuterol HFA 108 (90 BASE) MCG/ACT inhaler Notes to patient: Used to open the airways in lung diseases where spasm may cause breathing problems and prevent breathing problems that happen with exercise Take 2 puffs every four hours as need for shortness of breath or wheezing * Albuterol Sulfate (2.5 MG/3ML) 0.083% nebulizer solution Commonly known as: Proventil Notes to patient: Used to open the airways in lung diseases where spasm may cause breathing problems and prevent breathing problems that happen with exercise Inhale 1 Vial via nebulizer every 4 hours as needed for Wheezing or Shortness of Breath. * Albuterol Sulfate (2.5 MG/3ML) 0.083% nebulizer solution Commonly known as: Proventil Notes to patient: Used to open the airways in lung diseases where spasm may cause breathing problems and prevent breathing problems that happen with exercise Inhale 1 Vial via nebulizer every 4 hours as needed for Wheezing or Shortness of Breath. Azelastine 0.1 % nasal spray Commonly known as: Astelin Notes to patient: Used to help relieve symptoms (eg, stuffy or runny nose, itching, sneezing) of seasonal (short-term) or perennial (year-round) allergic rhinitis (hay fever), vasomotor rhinitis, or other upper respiratory allergies Administer 1 [place] into nostril in the morning and 1 [place] before bedtime. buPROPion XL 300 MG Tb24 Commonly known as: Wellbutrin XL Notes to patient: Used to treat depression, to prevent seasonal affective disorder (SAD), and to help quit smoking TAKE ONE TABLET BY MOUTH EVERY MORNING Cetirizine HCl 10 MG Capsule Notes to patient: Used to treat cold or allergy symptoms such as sneezing, itching, watery eyes, orrunny nose. Take 1 Capsule by mouth at bedtime. Eliquis 5 MG Tablet Generic drug: Apixaban Notes to patient: Used to treat or prevent clots. Blood Thinner take 1 tablet by mouth every morning and at bedtime Empagliflozin 10 MG Tabs Commonly known as: Jardiance Notes to patient: Used to lower blood sugar in patients with high blood sugar (diabetes) Take 1 Tablet by mouth in the morning. Erythromycin 5 MG/GM ophthalmic ointment Notes to patient: used to treat infections of the eye. Instill 0.25 Inches into both eyes at bedtime. fluticasone 50 MCG/ACT nasal spray Commonly known as: Flonase Notes to patient: Used to ease allergy signs and treat certain nose and sinus problems with nasal polyps Administer into each nostril 2 Sprays in the morning. Furosemide 80 MG Tablet Commonly known as: Lasix Notes to patient: Used to get rid of extra fluid and treat high blood pressure (Diuretic/water pill) Take 1 Tablet by mouth in the morning and 1 Tablet before bedtime. Gabapentin 600 MG Tablet Commonly known as: Neurontin Notes to patient: Used to treat painful nerve diseases and to help control certain kinds of seizures Take 1 Tablet by mouth in the morning and 1 Tablet before bedtime. melatonin 3 MG Tablet Notes to patient: Used to promote sleep Take 1 Tablet by mouth at bedtime. MetFORMIN 1000 MG Tablet Commonly known as: Glucophage Notes to patient: Used to lower blood sugar in patients with high blood sugar (diabetes) Take 1 Tablet by mouth 2 times a day with morning and evening meals. Nicotine 21 MG/24HR Patch Commonly known as: Nicoderm CQ Notes to patient: Used to treat nicotine withdrawal and curb the craving to smoke Place 1 Patch over 24 hours topically on the skin in the morning. On upper body/upper arm, change once a day for 6 weeks.. oxygen Gas Notes to patient: Used to ease shortness of breath and promote oxygenation 2 LPM at bedtime & at rest & 3 LPM with all exertion via n/c DX J 44.9 Potassium Chloride 20 MEQ packet Notes to patient: Used to treat or prevent low potassium levels Take 20 mEq by mouth in the morning. prednisoLONE Acetate 1 % ophthalmic suspension Commonly known as: Pred Forte Start taking on: March 05, 2024 Notes to patient: Used to treat eye swelling Instill 1 Drop into the left eye 4 times a day for 7 days, THEN 1 Drop 3 times a day for 7 days, THEN 1 Drop 2 times a day for 7 days, THEN 1 Drop every evening for 7 days. rOPINIRole 2 MG Tablet Commonly known as: Requip Notes to patient: Used to treat Parkinson's disease and restless leg syndrome Take 1 Tablet by mouth in the morning and 1 Tablet before bedtime. rosuvastatin 20 MG Tablet Commonly known as: Crestor Notes to patient: Used to lower bad cholesterol, lower triglycerides, and raise good cholesterol (HDL). Used to slow the progress of heart disease and lower the chance of heart attack and stroke. Take by mouth 1 Tablet in the morning. sertraline 100 MG Tablet Commonly known as: Zoloft Notes to patient: Used to treat depression, obsessive-compulsive problems, panic attacks, post-traumatic stress, mood problems cause by monthly periods, and social anxiety problems Take 1 Tablet by mouth in the morning. traZODone 100 MG Tablet Commonly known as: Desyrel Notes to patient: Used to treat depression and promote sleep Take 1 Tablet by mouth at bedtime. TRELEGY ellipta 100-62.5-25 MCG/ACT Aepb Generic drug: Xvwigifjqkj-Gpzzyfaivkxe-Luglawebmi Notes to patient: Used to treat asthma and COPD (chronic obstructive pulmonary disease). This drug is not to be used to treat intense flare-ups of shortness of breath. Use a rescue inhaler. Be sure to rinse mouth after use Inhale 1 Puff by mouth in the morning. Vitamin D3 50 MCG (1999 UT) Capsule Generic drug: Cholecalciferol Notes to patient: Used to treat or prevent vitamin D deficiency Take 1 Capsule by mouth in the morning. * This list has 3 medication(s) that are the same as other medications prescribed for you. Read thedirections carefully, and ask your doctor or other care provider to review them with you. STOP taking these medications levoFLOXacin 500 MG Tablet Commonly known as: Levaquin SCHEDULED FOLLOW-UP: Future Appointments Appt Date/Time Provider Department 03/17/2024 12:30 PM MAMMOGRAPHY [facility] Radiology, [place] 03/17/2024 2:[address] [facility] [place] Radiology, [facility] 03/18/2024 8:20 AM Marcos Maurice PA-C [facility] 03/18/2024 8:20 AM [facility]/26/2024 8:00 AM Andrea Mcclendon DO Ophthalmology, [place] 04/02/2024 9:15 AM Andrea Mcclendon DO Pulmonary Medicine [facility] 04/03/2024 9:40 AM Chance Zimmerman MD Sleep Lab, [facility] 04/03/2024 9:40 AM Chance Zimmerman MD Ophthalmology, [place] 04/07/2024 8:30 PM Gl, Sleep Med [facility] 04/25/2024 2:15 PM Andrea Mcclendon, DO Pulmonary Function Lab, [facility] 06/18/2024 7:40 AM Piper Cazares, DO Pulmonary Function Lab, [facility] 07/14/2024 1:00 PM Gl, Pulm Function Room 1 Pulmonary Medicine [facility] 07/14/2024 2:00 PM Gl, Pulm Function Room 2 07/23/2024 3:20 PM Chance Zimmerman MD Other Information Indwelling Devices: LINES ALL Duration Peripheral Line Right Antecubital 20 Gauge 2 days Vital Signs (last recorded): Most Recent Systolic BP: 103 mmHg (03/11/24 1102) Most Recent Diastolic BP: 59 mmHg (03/11/24 1102) Pulse: 91 (03/11/24 1102) Resp: 14 (03/11/24 1102) Most Recent Temperature: 36 C (03/11/24 1102) Weight: 94.2 kg (207 lb 11.2 oz) (03/11/24 0519) SpO2: 93 % (03/11/24 1102) O2 flow rate: 3 L/MIN (03/11/24 1102) Allergies: Honey bee venom protein [bee venom], Hydrocortisone, and Cortisone Activity: as tolerated Diet: cardiac diet Code Status: Full Code Condition on Discharge: stable Isolation status: None Cognition: normal HOSPITAL CONSULTS ORDERED: WOUND CONSULT IP REFERRING PHYSICIAN: Ref: SELF[[id number]] NO STREET ADDRESS AVAILABLE None (office) None (fax) PRIMARY CARE PROVIDER: PCP: Marcos Maurice PA-C [id number] / [place] [address] (office) [phone] (fax) Note: To contact a physician responsible for this patients hospital care, please call [facility] [phone]. I spent a total of 36 minutes coordinating, documenting, and providing care for this patient excluding time spent in the performance of separately billed services. documented in this encounter Discharge Instructions * Discharge Instr - AVS* Jesse Thurston DO - 03/11/2024 9:08 AM EDT Discharge Date: 03/11/2024 The information below provides you with the instructions and the list of medications you need to betaking following discharge from the hospital. If you have any questions, please ask before leaving. If you have questions after leaving, you can reach us at the numbers below. YOUR HOSPITAL PROVIDERS: Discharging Provider: Jesse Thurston DO Provider Department: Hospital Medicine To reach this Provider Sunday through Sunday (8:00 AM to 4:30 PM) for any questions or test results: Call [phone] For after-hours concerns: Call [phone] and have your provider paged, or the provider cashier and salesperson for the Department of Hospital Medicine paged. Please note, the discharging provider will not be able to provide you with any medications refills.Please discuss these with your primary care provider. Worsening Symptoms: If you have new symptoms, or your symptoms get worse, please contact your Discharge Provider or Primary Care Provider (PCP). If these providers are not available, you can go to your local [facility] or [facility] Clinic during their business hours. In an EMERGENCY situation: Call [phone] or go to the nearest emergency room. A BRIEF SUMMARY OF YOUR HOSPITAL STAY: You came to the hospital with: complaint of shortness of breath and coughing Your main diagnosis at discharge was: Acute on chronic respiratory failure with hypoxia and hypercapnia due to COPD exacerbation Operations & Procedures performed: none Complications: none significant Inpatient test results that are pending at discharge: none Advance Directive Documented: Advance Directive Does the Patient have an Advance Directive? No YOUR FOLLOW UP APPOINTMENTS: Primary Care Provider Information: PCP: Marcos Maurice PA-C [id number] [facility] / [place] [address] (office) [phone] (fax) An appointment was requested with your PCP (Marcos Maurice PA-C) within 7 days. (Please take this form to this visit with your primary care physician.) You need the following studies in the future: none INSTRUCTIONS: Diet: Heart healthy diet Activity: As tolerated Medication recommendations Azithromycin for 1 more day Prednisone taper. Prednisone 40 mg for 1 day followed by 20 mg for 3 days followed by 10 mg for 3 days Pulmonary appointment on 04/03/24 Sleep medicine appointment on 04/07/2024 COPD DISCHARGE INSTRUCTIONS HOW DO YOU FEEL TODAY? ALL CLEAR You are feeling well * Your breathing feels normal for you * The color of your phlegm is clear or white * You can do your normal activities without unusual tiredness or shortness of breath * Your appetite is normal * You are sleeping like you normally do * You can think clearly What you should do: * Take your daily medicines as prescribed * Eat healthy foods * Be active every day * Include some exercise, like walking, in your daily routine * Balance your activity with rest periods * Do not smoke. Make your home and car smoke free. Stay away from smoky areas. CAUTION You are feeling worse: * You are more short of breath * You are wheezing or coughing more than usual * You notice changes in your phlegm (thicker, color, amount) * You are using your rescue inhaler (the fast acting one) or your nebulizer more often than usual * You are more tired and cannot do your usual activities * You have a fever and chills * You are sleeping abnormally * Your symptoms wake you up What you should do: * Limit your activities * Make sure your oxygen system, if you have one, is working properly * Make sure you have been taking your medicines. Have you forgotten any today? * Eat smaller meals more often during the day rather than 3 big meals * Use your nebulizer or rescue inhaler (fast acting one), as prescribed CALL YOUR FAMILY DOCTOR !! EMERGENCY You feel you are in DANGER! * You have severe shortness of breath (You feel like you cannot breathe or catch your breath while resting) * Hard and fast breathing * Hard to walk and talk in complete sentences * You have chest pain * Your heart rate or pulse is very fast * You feel faint * You are sleepier than normal and have difficulty staying awake * You feel confused or are very drowsy * Your speech is slurred * You have bluish color to your lips or fingernails * Your medicine is not helping What you should do: CALL 911 OR GO TO THE HOSPITAL EMERGENCY ROOM !! Additional Instructions: - Call your primary care physician or seek medical attention if worsening shortness of breath or wheezing, chest pain,. documented in this encounter Progress Notes * Michael Isaac RPh - 03/11/2024 11:17 AM EDT PHARMACY DISCHARGE MEDICATION RECONCILIATION REVIEW [address] [id number] Name: Edna Kebede Location: [facility] [place] [id number]-[id number] Date: 03/11/2024 Time: 11:17 AM This discharge medication reconciliation was reviewed by a pharmacist and no corrections or interventions were required. * Jesse Thurston DO - 03/10/2024 10:41 AM EDT Images from the original note were not included. [facility] 3B-3010/W INTERVAL HISTORY: 63-year-old woman presenting with SOB/MACHADO with productive cough and wheezing. Admitted for acute onchronic respiratory failure with hypoxia and hypercapnia in the setting of COPD exacerbation. PMH includes severe COPD, GERD, obesity , Chronic rhinitis, Chronic diastolic heart failure, Chronic hypoxic respiratory failure (on 4L of oxygen at home), Pulmonary hypertension , Hx of PE/DVT on eliquis Subjective: Patient evaluated at bedside. Still on 5 L nasal cannula. Still having shortness of breath but states she overall feels improved compared to admission. Objective Physical Exam Most Recent Vital Signs: BP: 113 mmHg/71 mmHg (03/10/24805) Pulse: 92 (03/10/24805) Temp: 36.61 C (03/10/24805) Temp Summary: Temp Min: 35.6 C (96 F) Max: 36.6 C (97.9 F) SpO2: 91 % (03/10/24805) O2 flow rate: 5 L/MIN (03/10/24210) Supplemental O2 Delivery: Nasal Cannula (04/22/24 0806) Constitutional: no acute distress, (+) chronically ill HEENT: normal: normocephalic, atraumatic; no masses, tenderness, or adenopathy CV: normal rate and rhythm, no murmur, gallops or rub Chest: normal respiratory effort, (+) decreased breath sounds bilaterally Abdomen: normal: soft, bowel sounds normal, no masses, tenderness or organomegaly Extremities: no edema Skin: (+) scratches and scabs on lower extremities with bandage of right lower extremity : Neuro: alert, oriented to person, place, and time Peripheral Line Right Antecubital 20 Gauge (Active) Number of days: 2 STUDIES: Encounter Orders Labs and other studies reviewed with pertinent findings noted below: Results for orders placed or performed during the hospital encounter of 03/08/24 COMPREHENSIVE METABOLIC PANEL Result Value Ref Range BUN 19 6 - 20 mg/dL Creatinine 0.9 0.5 - 1.0 mg/dL Estimated Glomerular Filtration Rate 74 >=60 mL/min Sodium 140 135 - 146 mmol/L Potassium 3.9 3.5 - 5.1 mmol/L Chloride 97 (L) 98 - 107 mmol/L CO2 33 (H) 22 - 32 mmol/L Anion Gap 10 7 - 15 mmol/L Glucose 212 (H) 70 - 120 mg/dL Albumin 3.8 3.8 - 5.0 g/dL AST 12 10 - 35 U/L Alkaline Phosphatase 106 35 - 130 U/L Bilirubin, Total <0.2 <=1.2 mg/dL Calcium 8.7 8.4 - 10.2 mg/dL Protein 6.4 6.0 - 8.3 g/dL ALT 16 10 - 35 U/L BNP, NT-PRO Result Value Ref Range BNP, NT-Pro 147 <300 pg/mL TROPONIN T, HIGH SENSITIVITY Result Value Ref Range Troponin T, High Sensitivity 54 (H) <=14 ng/L PT INR Result Value Ref Range Prothrombin Time 12.1 11.6 - 15.2 seconds INR 0.9 0.8 - 1.2 RESPIRATORY PATHOGEN PANEL, PCR Result Value Ref Range Adenovirus by PCR Negative Negative Coronavirus 229E by PCR Negative Negative Coronavirus HKU1 by PCR Negative Negative Coronavirus NL63 by PCR Negative Negative Coronavirus OC43 by PCR Negative Negative Coronavirus SARS-CoV-2 by PCR Negative Negative Human Metapneumovirus by PCR Negative Negative Rhinovirus/Enterovirus by PCR Negative Negative Influenza A Virus by PCR Negative Negative Influenza B Virus by PCR Negative Negative Parainfluenza Virus 1 by PCR Negative Negative Parainfluenza Virus 2 by PCR Negative Negative Parainfluenza Virus 3 by PCR Negative Negative Parainfluenza Virus 4 by PCR Negative Negative Respiratory Syncytial Virus by PCR Negative Negative Bordetella pertussis by PCR Negative Negative Chlamydia pneumoniae by PCR Negative Negative Mycoplasma pneumoniae by PCR Negative Negative Bordetella parapertussis by PCR Negative Negative CBC Result Value Ref Range WBC 8.12 4.00 - 10.80 K/uL RBC 3.56 3.85 - 5.15 M/uL HGB 10.1 (L) 12.0 - 15.3 g/dL HCT 33.9 (L) 36.0 - 45.2 % MCV 95.2 81.5 - 97.5 fL MCH 28.4 27.0 - 34.0 pg MCHC 29.8 32.0 - 36.0 g/dL RDW 15.9 11.5 - 15.5 % PLT 267 140 - 400 K/uL MPV 9.1 6.6 - 11.1 fL nRBCs 0 <=0 /100 WBCs DIFFERENTIAL, AUTOMATED Result Value Ref Range WBC 8.12 4.00 - 10.80 K/uL Neutrophils % 78.0 (H) 40.0 - 75.0 % Lymphocytes % 12.8 (L) 18.0 - 42.0 % Monocytes % 6.2 1.0 - 11.0 % Eosinophils % 2.3 0.0 - 6.0 % Basophils % 0.2 0.0 - 2.0 % Immature Granulocytes % 0.5 0.0 - 2.0 % Absolute Neutrophils 6.33 1.80 - 7.70 K/uL Absolute Lymphocytes 1.04 1.00 - 4.80 K/ul Absolute Monocytes 0.50 0.00 - 1.10 K/uL Absolute Eosinophils 0.19 0.00 - 0.70 K/uL Absolute Basophils 0.02 0.00 - 0.20 K/uL Absolute Immature Granulocytes 0.04 0.00 - 0.20 K/uL TROPONIN T, HIGH SENSITIVITY Result Value Ref Range Troponin T, High Sensitivity 49 (H) <=14 ng/L CRP (INFLAMMATORY MARKER) Result Value Ref Range CRP (Inflammatory Marker) 11 (H) <=5 mg/L TROPONIN T, HIGH SENSITIVITY Result Value Ref Range Troponin T, High Sensitivity 47 (H) <=14 ng/L BLOOD GAS, ARTERIAL Result Value Ref Range Temperature 37.0 C pH, Arterial 7.359 7.350 - 7.450 units pCO2, Arterial 59.3 (HH) 35.0 - 45.0 mmHg pO2, Arterial 60.1 (L) 75.0 - 100.0 mmHg Base Excess, Arterial 6.3 (H) -2.0 - 2.0 mmol/L HGB 10.8 (L) 12.0 - 15.3 g/dL Oxyhemoglobin, Arterial 87.5 (L) 94.0 - 99.0 % total Hgb Carboxyhemoglobin, Whole Blood 2.9 (H) <=1.5 % total Hgb Methemoglobin, Whole Blood 0.6 <=1.5 % total Hgb Reduced Hemoglobin, Arterial 9.0 (H) 0.0 - 5.0 % total Hgb O2 Content, Arterial 13.3 (L) 15.0 - 24.0 %vol FiO2 Not Provided % O2 Flow, Arterial 4 L/min Bicarbonate, Whole Blood 32.6 (H) 23.0 - 31.0 mmol/L CBC Result Value Ref Range WBC 10.00 4.00 - 10.80 K/uL RBC 3.61 3.85 - 5.15 M/uL HGB 10.3 (L) 12.0 - 15.3 g/dL HCT 34.6 (L) 36.0 - 45.2 % MCV 95.8 81.5 - 97.5 fL MCH 28.5 27.0 - 34.0 pg MCHC 29.8 32.0 - 36.0 g/dL RDW 15.5 11.5 - 15.5 % PLT 283 140 - 400 K/uL MPV 9.4 6.6 - 11.1 fL nRBCs 0 <=0 /100 WBCs BASIC METABOLIC PANEL Result Value Ref Range BUN 23 (H) 6 - 20 mg/dL Creatinine 0.8 0.5 - 1.0 mg/dL Estimated Glomerular Filtration Rate 78 >=60 mL/min Sodium 142 135 - 146 mmol/L Potassium 4.4 3.5 - 5.1 mmol/L Chloride 102 98 - 107 mmol/L CO2 30 22 - 32 mmol/L Anion Gap 10 7 - 15 mmol/L Glucose 235 (H) 70 - 120 mg/dL Calcium 9.1 8.4 - 10.2 mg/dL MAGNESIUM Result Value Ref Range Magnesium 2.7 (H) 1.5 - 2.6 mg/dL PHOSPHORUS Result Value Ref Range Phosphorus 3.4 2.5 - 4.8 mg/dL CBC Result Value Ref Range WBC 9.86 4.00 - 10.80 K/uL RBC 3.53 3.85 - 5.15 M/uL HGB 10.1 (L) 12.0 - 15.3 g/dL HCT 33.6 (L) 36.0 - 45.2 % MCV 95.2 81.5 - 97.5 fL MCH 28.6 27.0 - 34.0 pg MCHC 30.1 32.0 - 36.0 g/dL RDW 15.5 11.5 - 15.5 % PLT 305 140 - 400 K/uL MPV 9.7 6.6 - 11.1 fL nRBCs 0 <=0 /100 WBCs BASIC METABOLIC PANEL Result Value Ref Range BUN 28 (H) 6 - 20 mg/dL Creatinine 1.1 (H) 0.5 - 1.0 mg/dL Estimated Glomerular Filtration Rate 58 (L) >=60 mL/min Sodium 145 135 - 146 mmol/L Potassium 3.5 3.5 - 5.1 mmol/L Chloride 97 (L) 98 - 107 mmol/L CO2 38 (H) 22 - 32 mmol/L Anion Gap 10 7 - 15 mmol/L Glucose 157 (H) 70 - 120 mg/dL Calcium 8.7 8.4 - 10.2 mg/dL GLUCOSE METER, POINT OF CARE Result Value Ref Range Glucose Meter 483 (H) 70 - 120 mg/dL GLUCOSE METER, POINT OF CARE Result Value Ref Range Glucose Meter 399 (H) 70 - 120 mg/dL GLUCOSE METER, POINT OF CARE Result Value Ref Range Glucose Meter 237 (H) 70 - 120 mg/dL GLUCOSE METER, POINT OF CARE Result Value Ref Range Glucose Meter 201 (H) 70 - 120 mg/dL GLUCOSE METER, POINT OF CARE Result Value Ref Range Glucose Meter 222 (H) 70 - 120 mg/dL GLUCOSE METER, POINT OF CARE Result Value Ref Range Glucose Meter 352 (H) 70 - 120 mg/dL GLUCOSE METER, POINT OF CARE Result Value Ref Range Glucose Meter 225 (H) 70 - 120 mg/dL GLUCOSE METER, POINT OF CARE Result Value Ref Range Glucose Meter 156 (H) 70 - 120 mg/dL GLUCOSE METER, POINT OF CARE Result Value Ref Range Glucose Meter >500 (HH) 70 - 120 mg/dL Device Comment Result Rechecked *Note: Due to a large number of results and/or encounters for the requested time period, some results have not been displayed. A complete set of results can be found in Results Review. CT PULMONARY EMBOLUS W CONTRAST Final Result PROCEDURE INFORMATION: Exam: CTA Chest With Contrast Exam date and time: 03/08/2024 4:25 PM Age: 63 years old Clinical indication: Other: Shortness of breath, redness lower extremity, swelling, history of copd, is on eliquis TECHNIQUE: Imaging protocol: Computed tomographic angiography of the chest with contrast. Exam focused on the arteries. 3D rendering (Not supervised by radiologist): MIP and/or 3D reconstructed images were created by the technologist. Radiation optimization: All CT scans at this facility use at least one of these dose optimization techniques: automated exposure control; mA and/or kV adjustment per patient size (includes targeted exams where dose is matched to clinical indication); or iterative reconstruction. Contrast material: OPTI 350; Contrast volume: 100 ml; Contrast route: INTRAVENOUS (IV); COMPARISON: CT PULMONARY EMBOLUS W CONTRAST 12/19/2023 2:41 PM FINDINGS: Limitations: Motion artifact. Pulmonary arteries: No pulmonary emboli identified, on series 7, image 113, heterogeneous attenuation is thought secondary to motion artifact. Small and/or peripheral emboli may not be identifiable. Aorta: The thoracic aorta is not enlarged. Lungs: Stable biapical yubla-dubqazf-ckna-left parenchymal densities suggesting scarring. A 5 mm left lower lobe superior segment pulmonary nodule is present (series 7, image 74), unchanged scattered pulmonary densities suggesting scarring and/or atelectasis are present bilaterally. Pleural spaces: No pleural effusion evident. Heart: The heart is not enlarged. No pericardial effusion. Lymph nodes: No mediastinal or hilar adenopathy identified. Liver: Imaged upper abdomen demonstrates an approximately 2 cm rounded hypodensity inferiorly in the right hepatic lobe, series 7, image 193. The hyperenhancing nodule previously noted in the liver is not readily apparent perhaps due to differences in contrast bolus timing. Gallbladder and bile ducts: Surgical clips consistent with a prior cholecystectomy. Intraperitoneal space: Bones/joints: No acute appearing osseous abnormality identified. . Soft tissues: No soft tissue fluid collection identified.. IMPRESSION IMPRESSION: 1. No pulmonary artery embolus identified 2. Left lower lobe 5 mm pulmonary nodule without interval change. For patients at low risk (minimal or absent history of smoking and of other known risk factors), no routine follow-up is indicated. For patients at high risk (history of smoking or of other known risk factors), consider optional CT Chest at 12 months. Please note that these recommendations do not apply to lung cancer screening, patients with immunosuppression, or patients with known primary cancer. (Reference: Susan) 3. Hepatic 2 cm hypodensity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 AMBULATION- 90% * Inpatient Ask-A-Doc - Julián Clark MD - 03/11/2024 8:12 AM EDT ASK-A-DOC Inpatient Note [address] [address] Name: Edna Kebede Location: [facility] [place] [id number] Date: 03/11/2024 Time: 8:12 AM Date of Response: 03/11/2024 Assessment: This is a 63 year old female with severe obstructive lung disease and the question is management. She was admitted for a COPD exacerbation. Recommendations: Please consider the followin. 5 day total course of prednisone. 2. An agent such as Anoro or the equivalent. 3. Follow up as an outpatient with Dr. Zimmerman. 4. Finish 5 days of azithromycin. 5. If requiring oxygen, suggest sats between 90-94%. 6. Requires an outpatient ABG within 2-4 weeks of discharge. 7. Smoking cessation is obviously recommended. Thank you. Please text me with any questions. Time spent: 15 minutes * Ancillary Progress Note - Jorge Will, VICE PRESIDENT FIXED INCOME - 03/11/2024 2:19 AM EDT Pt. Refused cpap. machine on standby * Care Plan - Jelena Goncalves RN - 03/10/2024 6:08 PM EDT Clinical Goal(s): Pt's SpO2 will remain >90% this shift (03/10/24 0800) Possible barriers to meeting goal(s)/advancing plan of care: Acuity of illness Stability of the patient: Moderately stable - low risk of patient condition declining or worsening Summary regarding today's goal(s): Met: Pt's SpO2 remained >90% this shift Recommendations: monitor VS * Care Plan - Sury Carl RN - 03/10/2024 6:41 AM EDT Clinical Goal(s): Pt will have decrease SOB this shift (03/09/241999) Possible barriers to meeting goal(s)/advancing plan of care: acuity of illness Stability of the patient: Moderately stable - low risk of patient condition declining or worsening Summary regarding today's goal(s): Met: Pt had decreased SOB this shift Recommendations: continue plan of care * Care Plan - Sury Carl RN - 03/09/2024 6:25 AM EDT Clinical Goal(s): Pt will have decreased SOB this shift (03/08/241929) Possible barriers to meeting goal(s)/advancing plan of care: acuity of illness Stability of the patient: Moderately stable - low risk of patient condition declining or worsening Summary regarding today's goal(s): Not Met: Pt had SOB with exertion this shift Recommendations: continue plan of care * Medical Necessity - Adrianna Duarte RN - 03/08/2024 6:03 PM EDT AdmissionCare Guideline: COPD - INPT, Inpatient Based on the indications selected for the patient, the bed status of Inpatient was determined to beMET The following indications were selected as present at the time of evaluation of the patient: - Hemodynamic instability, as indicated by 1 or more of the following: - Vital sign abnormality not readily corrected by appropriate treatment, as indicated by 1 or more of the following: - Tachycardia that persists despite appropriate treatment (eg, volume repletion, treatment of pain,treatment of underlying cause) - High-risk active acute comorbidity (eg, dysrhythmia, heart failure, pleural effusion, pneumothorax, myopathy, rib fracture) with new or worsened (eg, from baseline) signs or symptoms of COPD (eg, dyspnea, Tachypnea) Additional Information: HR 103 RR 22 4 L NC High-risk active acute comorbidity CHF AdmissionCare documentation entered by: Adrianna Duarte [facility], 27th edition, Copyright 2022 [facility] [employer] All Rights Reserved. [id number]:03:05-04:00 Solely for purpose of utilization review and payment; not a diagnostic tool * ED Line Maintainer Note - Jared Musa TECH - 03/08/2024 5:37 PM EDT 1735: Pt ambulated on 4L via NC with aid from a walker. Pt's SpO2 dropped to 85% and her pulse increased from 90 bpm to 125 bpm. Pt ambulated back to her room and was 86% on 6L via NC and was tachypneic. But her SpO2 did increase to 94% within 4 minutes. SINAN Gomez Y aware. * ED Line Maintainer Note - Katt Jimenes RN - 03/08/2024 2:04 PM EDT Pt comes in today for SOB. Pt reports increased SOB over the last 2-3 days. Pt is on 4L NC at baseline. Pt has COPD. Pt reports coughing up thick, yellow sputum. Pt denies chest pain. documented in this encounter Plan of Treatment Upcoming Encounters Date Type Department Care Team (Latest Contact Info) Description 03/17/2024 12:30 PM EDT Appointment [place] [address] [place] [address] 03/17/2024 2:00 PM EDT Appointment Radiology, [facility] [address] [place] [address] 03/18/2024 8:20 AM EDT Office Visit [facility] Osei Dasilva [address] [place] [address] Marcos Maurice PA-C [address] [place] [address] 03/25/2024 9:24 AM EDT Hospital Encounter OR [facility] [place], Operating Room, [facility] - 4th Floor [address] [place] [address] Andrea Mcclendon DO [address] [address] 03/25/2024 9:24 AM EDT - 03/25/2024 10:15 AM EDT Surgery OR [facility] [place], Operating Room, [facility] - 4th [facility] [address] Andrea Mcclendon, [address] [address] EXTRACAPSULAR CATARACT REMOVAL WITH INTRAOCULAR LENS 03/26/2024 8:00 AM EDT [place] [address] [address] Andrea Mcclendon, [address] [address] 04/02/2024 9:15 AM EDT Office Visit [place] [address] [address] Andrea Mcclendon, [address] [address] [address] 04/03/2024 9:40 AM EDT [facility] [place] [address] [place] [address] [phone] Chance Zimmerman MD [address] [place] [address] 04/07/2024 8:30 PM EDT PulmDiagnostic Sleep Lab, [address] [place] [address] [facility], Sleep Med Night Sleep [address] [place] [address] [place] [address] 04/25/2024 2:15 PM EDT Office Visit [place] [address] [address] [address] Andrea Mcclendon, [address] [place] [address] 06/18/2024 7:40 AM EDT Office Visit [facility] [place] [address] [place] [address] Piper Cazares DO [address] [place] [address] 07/14/2024 1:00 PM EDT PulmDiagnostic Pulmonary Function Lab, [address] [address] [facility], Pulm Function Room 1 400 [facility] [place] [address] 07/14/2024 2:00 PM EDT PulmDiagnostic Pulmonary Function Lab, [address] [address] [facility], Pulm Function Room 2 400 [place] [address] 07/23/2024 3:20 PM EDT Office Visit Pulmonary Medicine [place] Pratibha Winter [address] [place] [address] [phone] Chance Zimmerman MD [address] [address] Scheduled Procedures Name Priority Associated Diagnoses Date/Ti [...] exists DISCUSS TOBACCO CESSATION (REFER TO SMARTSET #4395) 10/15/2024 10/15/2023, 05/31/2023, 01/12/2023, Additional history exists Diabetic Eye Exam 12/10/2024 12/10/2023, , 12/10/2023, Additional history exists Diabetic Foot Exam 02/12/2025 02/13/2024 O2 ASSESSMENT COMPLETED IN PAST YEAR FOR COPD 02/25/2025 02/26/2024 CKD PHOS USE SMARTSET 36107 03/09/202502/18, 12/19/2023, 09/12/2023, Additional history exists CKD HGB USE SMARTSET 71610 03/11/202503/11, 03/10/2024, 03/09/2024, Additional history exists Lipid [...] this encounter Medical Devices Implanted Type Area Dairy Hand Device Identifier Shelf Expiration Date Model / Serial / Lot Lens 20.5 [employer] - [id number] - [id number] Implanted:Qty: 1 on 02/26/2024 by Andrea Mcclendon DO at OR [facility] [place] Left: Eye [employer] 08/25/2026 [id number] / [id number] / documented as of this encounter Procedures Procedure Name Priority Date/Time Associated Diagnosis Comments GLUCOSE METER, POINT OF CARE [facility] 03/11/2024 11:20 AM EDT GLUCOSE METER, POINT OF CARE [facility] 03/11/2024 7:09 AM EDT BASIC METABOLIC PANEL Routine 03/11/2024 5:21 AM EDT CBC Routine 03/11/2024 5:21 AM EDT GLUCOSE METER, POINT OF CARE [facility] 03/10/2024 9:12 PM EDT GLUCOSE METER, POINT OF CARE [facility] 03/10/2024 4:12 PM EDT GLUCOSE METER, POINT OF CARE [facility] 03/10/2024 11:33 AM EDT GLUCOSE METER, POINT OF CARE [facility] 03/10/2024 8:06 AM EDT BASIC METABOLIC PANEL Routine 03/10/2024 4:10 AM EDT CBC Routine 03/10/2024 4:10 AM EDT GLUCOSE METER, POINT OF CARE [facility] 03/09/2024 9:13 PM EDT GLUCOSE METER, POINT OF CARE [facility] 03/09/2024 4:30 PM EDT GLUCOSE METER, POINT OF CARE [facility] 03/09/2024 11:12 AM EDT GLUCOSE METER, POINT OF CARE [place] 03/09/2024 8:04 AM EDT BASIC METABOLIC PANEL Routine 03/09/2024 3:25 AM EDT PHOSPHORUS Routine 03/09/2024 3:25 AM EDT CBC Routine 03/09/2024 3:25 AM EDT MAGNESIUM Routine 03/09/2024 3:25 AM EDT GLUCOSE METER, POINT OF CARE [facility] 03/09/2024 2:19 AM EDT GLUCOSE METER, POINT OF CARE [facility] 03/09/2024 12:05 AM EDT GLUCOSE METER, POINT OF CARE [facility] 03/08/2024 9:53 PM EDT GLUCOSE METER, POINT OF CARE [facility] 03/08/2024 9:52 PM EDT BLOOD GAS, ARTERIAL STAT 03/08/2024 7 :[address] PULMONARY EMBOLUS W CONTRAST STAT 03/08/2024 4:36 PM EDT TROPONIN T, HIGH SENSITIVITY STAT 03/08/2024 3:12 PM EDT TROPONIN T, HIGH SENSITIVITY STAT 03/08/2024 2:03 PM EDT CRP (INFLAMMATORY MARKER) Add-on 03/08/2024 2:03 PM EDT EXTRA LIGHT BLUE TOP Routine 03/08/2024 12:36 PM EDT DIFFERENTIAL, AUTOMATED STAT 03/08/2024 12:36 PM EDT TROPONIN T, HIGH SENSITIVITY STAT 03/08/2024 12:36 PM EDT BNP (NT-PROBNP) STAT 03/08/2024 12:36 PM EDT COMPREHENSIVE METABOLIC PANEL STAT 03/08/2024 12:36 PM EDT CBC STAT 03/08/2024 12:36 PM EDT PT INR STAT 03/08/2024 12:36 PM EDT CBC STAT 03/08/2024 12:36 PM EDT EXTRA GOLD TOP Routine 03/08/2024 12:33 PM EDT EXTRA TUBES Routine 03/08/2024 12:33 PM EDT XR CHEST 2 VIEWS STAT 03/08/2024 12:3 1 PM EDT RESPIRATORY PATHOGEN PANEL, PCR STAT 03/08/2024 12:23 PM EDT documented in this encounter Results * (ABNORMAL) GLUCOSE METER, POINT OF CARE (03/11/2024 11:20 AM EDT) Glucose Meter 295(H) 70 - 120 mg/dL 03/11/2024 11:35 AM EDT [facility] Blood Whole blood specimen / Unknown 03/11/2024 11:20 AM EDT 03/11/2024 11:35 AM EDT Jesse Thurston DO LAB POINT OF CARE TE ST DOCKED DEVICE UNSOLICITED RESULTS [facility] [address] [place] [address] * (ABNORMAL) GLUCOSE METER, POINT OF CARE (03/11/2024 7:09 AM EDT) Glucose Meter 129(H) 70 - 120 mg/dL 03/11/2024 7:24 AM EDT [facility] Blood Whole blood specimen / Unknown 03/11/2024 7:09 AM EDT 03/11/2024 7:24 AM EDT Ishkiana Thurston DO LAB POINT OF CARE TE ST DOCKED DEVICE UNSOLICITED RESULTS [facility] [address] [place] [address] * (ABNORMAL) BASIC METABOLIC PANEL (03/11/2024 5:21 AM EDT) BUN 31(H) 6 - 20 mg/dL 03/11/2024 6:44 AM EDT LABORATORY GL[facility] Creatinine 1.1(H) 0.5 - 1.0 mg/dL 03/11/2024 6:44 AM EDT LABORATORY [facility] Estimated Glomerular Filtration Rate 57(L) >=60 mL/min 03/11/2024 6:44 AM EDT LABORATORY [facility] Comment:eGFR is calculated b ased on the CKD-EPI 2020 equation Sodium 142 135 - 146 mmol/L 03/11/2024 6:44 AM EDT LABORATORY [facility] Potassium 3.9 3.5 - 5.1 mmol/L 03/11/2024 6:44 AM EDT LABORATORY [facility] Chloride 96(L) 98 - 107 mmol/L 03/11/2024 6:44 AM EDT LABORATORY GL[facility] CO2 32 22 - 32 mmol/L 03/11/2024 6:44 AM EDT LABORATORY [facility] Anion Gap 14 7 - 15 mmol/L 03/11/2024 6:44 AM EDT LABORATORY [facility] Glucose 129(H) 70 - 120 mg/dL 03/11/2024 6:44 AM EDT LABORATORY [facility] Calcium 8.5 8.4 - 10.2 mg/dL 03/11/2024 6:44 AM EDT LABORATORY [facility] Blood Venous blood specimen / Unknown Venipuncture / Unknown 03/11/2024 5:21 AM EDT 03/11/2024 6:15 AM EDT Andrea Staley MD LAB BLOOD ORD ERABLES LABORATORY [facility] [place] [address] [place] [address] * (ABNORMAL) CBC (03/11/2024 5:21 AM EDT) [facility] WBC 8.20 4.00 - 10.80 K/uL 03/11/2024 6:[address] [facility] [place] RBC 3.56 3.85 - 5.15 M/uL 03/11/2024 6:[address] [facility] [place] HGB 10.0(L) 12.0 - 15.3 g/dL 03/11/2024 6:[address] [facility] [place] HCT 32.7(L) 36.0 - 45.2 % 03/11/2024 6:[address] [facility] [place] MCV 91.9 81.5 - 97.5 fL 03/11/2024 6:[address] [facility] [place] MCH 28.1 27.0 - 34.0 pg 03/11/2024 6:[address] [facility] [place] MCHC 30.6 32.0 - 36.0 g/dL 03/11/2024 6:[address] [facility] [place] RDW 15.6 11.5 - 15.5 % 03/11/2024 6:[address] [facility] [place] PLT 308 140 - 400 K/uL 03/11/2024 6:[address] [facility] [place] MPV 9.7 6.6 - 11.1 fL 03/11/2024 6:[address] [facility] [place] nRBCs 0 <=0 /100 WBCs 03/11/2024 6:[address] [facility] [place] Blood Venous blood specimen / Unknown Venipuncture / Unknown 03/11/2024 5:21 AM EDT 03/11/2024 6:15 AM EDT Andrea Staley MD LAB BLOOD ORD ERABLES LABORATORY [facility] [place] [address] [place] [address] * (ABNORMAL) GLUCOSE METER, POINT OF CARE (03/10/2024 9:12 PM EDT) Glucose Meter 135(H) 70 - 120 mg/dL 03/10/2024 9:26 PM EDT [facility] Blood Whole blood specimen / Unknown 03/10/2024 9:12 PM EDT 03/10/2024 9:26 PM EDT Ishmail Saccoh DO LAB POINT OF CARE TE ST DOCKED DEVICE UNSOLICITED RESULTS Performing Organization Address City/[facility]/ZIP Co de Phone Number [facility] [address] [place] [address] * (ABNORMAL) GLUCOSE METER, POINT OF CARE (03/10/2024 4:12 PM EDT) Glucose Meter 304(H) 70 - 120 mg/dL 03/10/2024 4:43 PM EDT [facility] Blood Whole blood specimen / Unknown 03/10/2024 4:12 PM EDT 03/10/2024 4:43 PM EDT Ishmail Saccoh DO LAB POINT OF CARE TE ST DOCKED DEVICE UNSOLICITED RESULTS Performing Organization Address [facility] Co de Phone Number [facility] [address] [place] [address] * (ABNORMAL) GLUCOSE METER, POINT OF CARE (03/10/2024 11:33 AM EDT) Glucose Meter 188(H) 70 - 120 mg/dL 03/10/2024 11:56 AM EDT [facility] Blood Whole blood specimen / Unknown 03/10/2024 11:33 AM EDT 03/10/2024 11:56 AM EDT Ishmail Saccoh DO LAB POINT OF CARE TE ST DOCKED DEVICE UNSOLICITED RESULTS Performing Organization Address City/[facility] Co de Phone Number [facility] [address] [place] [address] * (ABNORMAL) GLUCOSE METER, POINT OF CARE (03/10/2024 8:06 AM EDT) Glucose Meter 156(H) 70 - 120 mg/dL 03/10/2024 8:12 AM EDT [facility] Blood Whole blood specimen / Unknown 03/10/2024 8:06 AM EDT 03/10/2024 8:12 AM EDT Ishmail Saccoh DO LAB POINT OF CARE TE ST DOCKED DEVICE UNSOLICITED RESULTS [facility] [address] [facility] [place] [address] * (ABNORMAL) BASIC METABOLIC PANEL (03/10/2024 4:10 AM EDT) BUN 28(H) 6 - 20 mg/dL 03/10/2024 5:36 AM EDT LABORATORY GL[facility] Creatinine 1.1(H) 0.5 - 1.0 mg/dL 03/10/2024 5:36 AM EDT LABORATORY [facility] Estimated Glomerular Filtration Rate 58(L) >=60 mL/min 03/10/2024 5:36 AM EDT LABORATORY [facility] Comment:eGFR is calculated b ased on the CKD-EPI 2020 equation Sodium 145 135 - 146 mmol/L 03/10/2024 5:36 AM EDT LABORATORY [facility] Potassium 3.5 3.5 - 5.1 mmol/L 03/10/2024 5:36 AM EDT LABORATORY [facility] Chloride 97(L) 98 - 107 mmol/L 03/10/2024 5:36 AM EDT LABORATORY [facility] CO2 38(H) 22 - 32 mmol/L 03/10/2024 5:36 AM EDT LABORATORY [facility] Anion Gap 10 7 - 15 mmol/L 03/10/2024 5:36 AM EDT LABORATORY [facility] Glucose 157(H) 70 - 120 mg/dL 03/10/2024 5:36 AM EDT LABORATORY [facility] Calcium 8.7 8.4 - 10.2 mg/dL 03/10/2024 5:36 AM EDT LAB[facility]ATORY [facility] Blood Venous blood specimen / Unknown Venipuncture / Unknown 03/10/2024 4:10 AM EDT 03/10/2024 5:12 AM EDT Andrea Stlaey MD LAB BLOOD ORD ERABLES LABORATORY [address] [address] * (ABNORMAL) CBC (03/10/2024 4:10 AM EDT) WBC 9.86 4.00 - 10.80 K/uL 03/10/2024 5:[address] [facility] [place] RBC 3.53 3.85 - 5.15 M/uL 03/10/2024 5:[address] [facility] [place] HGB 10.1(L) 12.0 - 15.3 g/dL 03/10/2024 5:[address] [facility] [place] HCT 33.6(L) 36.0 - 45.2 % 03/10/2024 5:[address] [facility] [place] MCV 95.2 81.5 - 97.5 fL 03/10/2024 5:[address] [facility] [place] MCH 28.6 27.0 - 34.0 pg 03/10/2024 5:[address] [facility] [place] MCHC 30.1 32.0 - 36.0 g/dL 03/10/2024 5:[address] [facility] [place] RDW 15.5 11.5 - 15.5 % 03/10/2024 5:[address] [facility] [place] PLT 305 140 - 400 K/uL 03/10/2024 5:[address] [facility] [place] MPV 9.7 6.6 - 11.1 fL 03/10/2024 5:[address] [facility] [place] nRBCs 0 <=0 /100 WBCs 03/10/2024 5:[address] [facility] [place] Blood Venous blood specimen / Unknown Venipuncture / Unknown 03/10/2024 4:10 AM EDT 03/10/2024 5:12 AM EDT Andrea Staley MD LAB BLOOD ORD ERABLES LABORATORY [address] [address] * (ABNORMAL) GLUCOSE METER, POINT OF CARE (03/09/2024 9:13 PM EDT) Glucose Meter 225(H) 70 - 120 mg/dL 03/09/2024 9:27 PM EDT [facility] Blood Whole blood specimen / Unknown 03/09/2024 9:13 PM EDT 03/09/2024 9:27 PM EDT Andrea Staley MD LAB POINT OF CARE TEST DOCKED DEVICE UNSOLICITED RESULTS Performing Organization Address [facility] Co de Phone Number [facility] [address] [place] [phone] * (ABNORMAL) GLUCOSE METER, POINT OF CARE (03/09/2024 4:30 PM EDT) Glucose Meter 352(H) 70 - 120 mg/dL 03/09/2024 4:40 PM EDT [facility] Blood Whole blood specimen / Unknown 03/09/2024 4:30 PM EDT 03/09/2024 4:40 PM EDT Andrea Staley MD LAB POINT OF CARE TEST DOCKED DEVICE UNSOLICITED RESULTS Performing Organization Address [facility] Co de Phone Number [facility] [address] [place] [address] * (ABNORMAL) GLUCOSE METER, POINT OF CARE (03/09/2024 11:12 AM EDT) Glucose Meter 222(H) 70 - 120 mg/dL 03/09/2024 11:23 AM EDT [facility] Blood Whole blood specimen / Unknown 03/09/2024 11:12 AM EDT 03/09/2024 11:23 AM EDT Andrea Staley MD LAB POINT OF CARE TEST DOCKED DEVICE UNSOLICITED RESULTS Performing Organization Address City/[facility]/ZIP Co de Phone Number [facility] [address] [place] [phone] * (ABNORMAL) GLUCOSE METER, POINT OF CARE (03/09/2024 8:04 AM EDT) Glucose Meter 201(H) 70 - 120 mg/dL 03/09/2024 8:07 AM EDT [facility] Blood Whole blood specimen / Unknown 03/09/2024 8:04 AM EDT 03/09/2024 8:07 AM EDT Andrea Staley MD LAB POINT OF CARE TEST DOCKED DEVICE UNSOLICITED RESULTS Performing Organization Address [facility] de Phone Number [facility] [address] [place] [phone] * PHOSPHORUS (03/09/2024 3:25 AM EDT) Phosphorus 3.4 2.5 - 4.8 mg/dL 03/09/2024 4:[address] [facility] [place] Blood Venous blood specimen / Unknown Venipuncture / Unknown 03/09/2024 3:25 AM EDT 03/09/2024 3:50 AM EDT Tim Lr MD LAB BLOOD ORDERABLE S Performing Organization Address City/[facility] Co de Phone Number LABORATORY [address] [phone] * (ABNORMAL) MAGNESIUM (03/09/2024 3:25 AM EDT) Magnesium 2.7(H) 1.5 - 2.6 mg/dL 03/09/2024 4:[address] [facility] [place] Blood Venous blood specimen / Unknown Venipuncture / Unknown 03/09/2024 3:25 AM EDT 03/09/2024 3:50 AM EDT Tim Lr MD LAB BLOOD ORDERABLE S Performing Organization Address City/[facility]/ZIP Co de Phone Number LABORATORY [address], [place] [phone] * (ABNORMAL) BASIC METABOLIC PANEL (03/09/2024 3:25 AM EDT) BUN 23(H) 6 - 20 mg/dL 03/09/2024 4:16 AM EDT LABORATORY GL Creatinine 0.8 0.5 - 1.0 mg/dL 03/09/2024 4:16 AM EDT LABORATORY [facility] Estimated Glomerular Filtration Rate 78 >=60 mL/min 03/09/2024 4:16 AM EDT LABORATORY [facility] Comment:eGFR is calculated b ased on the CKD-EPI 2020 equation Sodium 142 135 - 146 mmol/L 03/09/2024 4:16 AM EDT LABORATORY [facility] Potassium 4.4 3.5 - 5.1 mmol/L 03/09/2024 4:16 AM EDT LABORATORY [facility] Chloride 102 98 - 107 mmol/L 03/09/2024 4:16 AM EDT LABORATORY GL[facility] CO2 30 22 - 32 mmol/L 03/09/2024 4:16 AM EDT LABORATORY GL Anion Gap 10 7 - 15 mmol/L 03/09/2024 4:16 AM EDT LABORATORY GL Glucose 235(H) 70 - 120 mg/dL 03/09/2024 4:16 AM EDT LABORATORY GL Calcium 9.1 8.4 - 10.2 mg/dL 03/09/2024 4:16 AM EDT LABORATORY GL Blood Venous blood specimen / Unknown Venipuncture / Unknown 03/09/2024 3:25 AM EDT 03/09/2024 3:50 AM EDT Tim Lr MD LAB BLOOD ORDERABLE S LABORATORY [facility] [place] [address] [place] [address] * (ABNORMAL) CBC (03/09/2024 3:25 AM EDT) WBC 10.00 4.00 - 10.80 K/uL 03/09/2024 3:54 AM EDT LABORATORY GL RBC 3.61 3.85 - 5.15 M/uL 03/09/2024 3:54 AM EDT LABORATORY GL HGB 10.3(L) 12.0 - 15.3 g/dL 03/09/2024 3:54 AM EDT LABORATORY [facility] HCT 34.6(L) 36.0 - 45.2 % 03/09/2024 3:54 AM EDT LABORAT[facility] MCV 95.8 81.5 - 97.5 fL 03/09/2024 3:54 AM EDT [facility]AT[facility] MCH 28.5 27.0 - 34.0 pg 03/09/2024 3:54 AM EDT LABORATORY GL MCHC 29.8 32.0 - 36.0 g/dL 03/09/2024 3:[address] [facility] [place] RDW 15.5 11.5 - 15.5 % 03/09/2024 3:54 AM EDT LABORATORY GL PLT 283 140 - 400 K/uL 03/09/2024 3:[address] [facility] [place] MPV 9.4 6.6 - 11.1 fL 03/09/2024 3:[address] [facility] [place] nRBCs 0 <=0 /100 WBCs 03/09/2024 3:[address] [facility] [facility] [place] Blood Venous blood specimen / Unknown Venipuncture / Unknown 03/09/2024 3:25 AM EDT 03/09/2024 3:50 AM EDT Tim Lr MD LAB BLOOD ORDERABLE S LABORATORY [address] [address] * (ABNORMAL) GLUCOSE METER, POINT OF CARE (03/09/2024 2:19 AM EDT) [facility] Glucose Meter 237(H) 70 - 120 mg/dL 03/09/2024 2:21 AM EDT [facility] Blood Whole blood specimen / Unknown 03/09/2024 2:19 AM EDT 03/09/2024 2:21 AM EDT Tim Lr MD LAB POINT OF CARE T EST DOCKED DEVICE UNSOLICITED RESULTS Performing Organization Address [facility] Co de Phone Number [facility] [address] [place] [address] * (ABNORMAL) GLUCOSE METER, POINT OF CARE (03/09/2024 12:05 AM EDT) Glucose Meter 399(H) 70 - 120 mg/dL 03/09/2024 12:10 AM EDT [facility] Blood Whole blood specimen / Unknown 03/09/2024 12:05 AM EDT 03/09/2024 12:10 AM EDT Tim Lr MD LAB POINT OF CARE T EST DOCKED DEVICE UNSOLICITED RESULTS Performing Organization Address [facility] de Phone Number [facility] [address] [place] [address] * (ABNORMAL) GLUCOSE METER, POINT OF CARE (03/08/2024 9:53 PM EDT) Glucose Meter 483(H) 70 - 120 mg/dL 03/09/2024 12:09 AM EDT [facility] Blood Whole blood specimen / Unknown 03/08/2024 9:53 PM EDT 03/09/2024 12:09 AM EDT Tim Lr MD LAB POINT OF CARE T EST DOCKED DEVICE UNSOLICITED RESULTS Performing Organization Address [facility] de Phone Number [facility] [address] [place] [address] * (ABNORMAL) GLUCOSE METER, POINT OF CARE (03/08/2024 9:52 PM EDT) Glucose Meter >500(HH) 70 - 120 mg/dL 03/10/2024 8:57 AM EDT [facility] Device Comment Result Rechecked 03/10/2024 8:57 AM EDT [facility] Blood Whole blood specimen / Unknown 03/08/2024 9:52 PM EDT 03/10/2024 8:57 AM EDT Ishmail [place] DO LAB POINT OF CARE TE ST DOCKED DEVICE UNSOLICITED RESULTS [facility] [address] [place] [address] * (ABNORMAL) BLOOD GAS, ARTERIAL (03/08/2024 7:23 PM EDT) Temperature 37.0 C 03/08/2024 7:38 PM EDT LABORATORY [facility] pH, Arterial 7.359 7.350 - 7.450 units 03/08/2024 7:38 PM EDT LABORATORY [facility] pCO2, Arterial 59.3(HH) 35.0 - 45.0 mmHg 03/08/2024 7:38 PM EDT LABORATORY [facility] pO2, Arterial 60.1(L) 75.0 - 100.0 mmHg 03/08/2024 7:38 PM EDT LABORATORY [facility] Base Excess, Arterial 6.3(H) -2.0 - 2.0 mmol/L 03/08/2024 7:38 PM EDT LABORATORY [facility] HGB 10.8(L) 12.0 - 15.3 g/dL 03/08/2024 7:38 PM EDT LABORATORY [facility] Oxyhemoglobin, Arterial 87.5(L) 94.0 - 99.0 % total Hgb 03/08/2024 7:38 PM EDT LABORATORY [facility] Carboxyhemoglob in, Whole Blood 2.9(H) <=1.5 % total Hgb 03/08/2024 7:38 PM EDT LABORATORY [facility] Comment:Smokers: 0-9.0 % Methemoglobin, Whole Blood 0.6 <=1.5 % total Hgb 03/08/2024 7:38 PM EDT LABORATORY [facility] Reduced Hemoglobin, Arterial 9.0(H) 0.0 - 5.0 % total Hgb 03/08/2024 7:38 PM EDT LABORATORY [facility] O2 Content, Arterial 13.3(L) 15.0 - 24.0 %vol 03/08/2024 7:38 PM EDT LABORATORY [facility] FiO2 Not Provided % 03/08/2024 7:38 PM EDT LABORATORY [facility] O2 Flow, Arterial 4 L/min 03/08/2024 7:[address] [facility] [place] Bicarbonate, Whole Blood 32.6(H) 23.0 - 31.0 mmol/L 03/08/2024 7:38 PM EDT LABORATORY GL Blood Arterial blood specimen / Unknown Arterial Puncture / Unknown 03/08/2024 7:23 PM EDT 03/08/2024 7:25 PM EDT Bharath Garcia CERTIFIED SKI PATROLLER LAB BLOOD ORDERABL ES LABORATORY [facility] [place] [address] [place] [address] * CT PULMONARY EMBOLUS W CONTRAST (03/08/2024 4:36 PM EDT) Anatomical Region Laterality Modality Chest, Cardio, Body Computed Ritesh ography 03/08/2024 4:25 PM EDT Impressions 03/08/2024 5:06 PM EDT IMPRESSION: 1. No pulmonary artery embolus identified 2. Left lower lobe 5 mm pulmonary nodule without interval change. For patients at low risk (minimal or absent history of smoking and of other known risk factors), no routine follow-up is indicated. For patients at high risk (history of smoking or of other known risk factors), consider optional CT Chest at 12 months. Please note that these recommendations do not apply to lung cancer screening, patients with immunosuppression, or patients with known primary cancer. (Reference: Susan) 3. Hepatic 2 cm hypodensity in the right hepatic lobe, incompletely imaged. It is greater in attenuation than typical for a hepatic cyst but is otherwise not fully characterized. Consider follow-up evaluation with liver protocol MRI on a nonemergent basis. REFERENCES: Susan Mahajan, et al. Guidelines for Management of Incidental Pulmonary Nodules Detected on CT Images: From the Fleischner Society 2017. Radiology. 2017;284(1):228-243. THIS DOCUMENT HAS BEEN ELECTRONICALLY SIGNED BY SANDRA RICHARDS MD Narrative 03/08/2024 5:06 PM EDT PROCEDURE INFORMATION: Exam: CTA Chest With Contrast Exam date and time: 03/08/2024 4:25 PM Age: 63 years old Clinical indication: Other: Shortness of breath, redness lower extremity, swelling, history of copd, is on eliquis TECHNIQUE: Imaging protocol: Computed tomographic angiography of the chest with contrast. Exam focused on the arteries. 3D rendering (Not supervised by radiologist): MIP and/or 3D reconstructed images were created by the technologist. Radiation optimization: All CT scans at this facility use at least one of these dose optimization techniques: automated exposure control; mA and/or kV adjustment per patient size (includes targeted exams where dose is matched to clinical indication); or iterative reconstruction. Contrast material: OPTI 350; Contrast volume: 100 ml; Contrast route: INTRAVENOUS (IV); COMPARISON: CT PULMONARY EMBOLUS W CONTRAST 12/19/2023 2:41 PM FINDINGS: Limitations: Motion artifact. Pulmonary arteries: No pulmonary emboli identified, on series 7, image 113, heterogeneous attenuation is thought secondary to motion artifact. Small and/or peripheral emboli may not be identifiable. Aorta: The thoracic aorta is not enlarged. Lungs: Stable biapical blmtn-apcyzah-yjza-left parenchymal densities suggesting scarring. A 5 mm left lower lobe superior segment pulmonary nodule is present (series 7, image 74), unchanged scattered pulmonary densities suggesting scarring and/or atelectasis are present bilaterally. Pleural spaces: No pleural effusion evident. Heart: The heart is not enlarged. No pericardial effusion. Lymph nodes: No mediastinal or hilar adenopathy identified. Liver: Imaged upper abdomen demonstrates an approximately 2 cm rounded hypodensity inferiorly in the right hepatic lobe, series 7, image 193. The hyperenhancing nodule previously noted in the liver is not readily apparent perhaps due to differences in contrast bolus timing. Gallbladder and bile ducts: Surgical clips consistent with a prior cholecystectomy. Intraperitoneal space: Bones/joints: No acute appearing osseous abnormality identified. . Soft tissues: No soft tissue fluid collection identified.. Procedure Note Bone III, Sandra Salas MD - 03/08/2024 PROCEDURE INFORMATION: Exam: CTA Chest With Contrast Exam date and time: 03/08/2024 4:25 PM Age: 63 years old Clinical indication: Other: Shortness of breath, redness lower extremity, swelling, history of copd, is on eliquis TECHNIQUE: Imaging protocol: Computed tomographic angiography of the chest withcontrast. Exam focused on the arteries. 3D rendering (Not supervised by radiologist): MIP and/or 3D reconstructed images were created by the technologist. Radiation optimization: All CT scans at this facility use at least one ofthese dose optimization techniques: automated exposure control; mA and/or kV adjustment per patient size (includes targeted exams where dose is matchedto clinical indication); or iterative reconstruction. Contrast material: OPTI 350; Contrast volume: 100 ml; Contrast route: INTRAVENOUS (IV); COMPARISON: CT PULMONARY EMBOLUS W CONTRAST 12/19/2023 2:41 PM FINDINGS: Limitations: Motion artifact. Pulmonary arteries: No pulmonary emboli identified, on series 7, , heterogeneous attenuation is thought secondary to motion artifact. Smalland/or peripheral emboli may not be identifiable. Aorta: The thoracic aorta is not enlarged. Lungs: Stable biapical pcqqi-llrhtwi-qkzx-left parenchymal densitiessuggesting scarring. A 5 mm left lower lobe superior segment pulmonary nodule ispresent (series 7, image 74), unchanged scattered pulmonary densities suggesting scarring and/or atelectasis are present bilaterally. Pleural spaces: No pleural effusion evident. Heart: The heart is not enlarged. No pericardial effusion. Lymph nodes: No mediastinal or hilar adenopathy identified. Liver: Imaged upper abdomen demonstrates an approximately 2 cm rounded hypodensity inferiorly in the right hepatic lobe, series 7, image 193. The hyperenhancing nodule previously noted in the liver is not readilyapparent perhaps due to differences in contrast bolus timing. Gallbladder and bile ducts: Surgical clips consistent with a prior cholecystectomy. Intraperitoneal space: Bones/joints: No acute appearing osseous abnormality identified. . Soft tissues: No soft tissue fluid collection identified.. IMPRESSION IMPRESSION: 1. No pulmonary artery embolus identified 2. Left lower lobe 5 mm pulmonary nodule without interval change. For patients at low risk (minimal or absent history of smoking and of otherknown risk factors), no routine follow-up is indicated. For patients at highrisk (history of smoking or of other known risk factors), consider optional CTChest at 12 months. Please note that these recommendations do not apply to lung cancer screening, patients with immunosuppression, or patients with known primary cancer. (Reference: Susan) 3. Hepatic 2 cm hypodensity in the right hepatic lobe, incompletelyimaged. It is greater in attenuation than typical for a hepatic cyst but isotherwise not fully characterized. Consider follow-up evaluation with liver protocolMRI on a nonemergent basis. REFERENCES: Susan Mahajan et al. Guidelines for Management of Incidental PulmonaryNodules Detected on CT Images: From the Fleischner Society 2017. Radiology. 2017;284(1):228-243. THIS DOCUMENT HAS BEEN ELECTRONICALLY SIGNED BY SANDRA RICHARDS MD Jason Lane PA-C RAD CT * (ABNORMAL) TROPONIN T, HIGH SENSITIVITY (03/08/2024 3:12 PM EDT) Troponin T, High Sensitivity 47(H) <=14 ng/L 03/08/2024 3:[address] [facility] [place] Comment:Result may be falsel y decreased due to hemolysis. Blood Venous blood specimen / Unknown Venipuncture / Unknown 03/08/2024 3:12 PM EDT 03/08/2024 3:15 PM EDT Reg Herrmann MD LAB BLOOD ORDER CIARAN Performing Organization Address City/[facility]/ZIP Co de Phone Number LABORATORY [address] [id number] * (ABNORMAL) CRP (INFLAMMATORY MARKER) (03/08/2024 2:03 PM EDT) [facility] CRP (Inflammatory Marker) 11(H) <=5 mg/L 03/08/2024 2:[address] [facility] [place] Blood Venous blood specimen / Unknown Venipuncture / Unknown 03/08/2024 2:03 PM EDT 03/08/2024 2:[address] PA-C LAB BLOOD ORDERA BLES LABORATORY [address] [address] * (ABNORMAL) TROPONIN T, HIGH SENSITIVITY (03/08/2024 2:03 PM EDT) Troponin T, High Sensitivity 49(H) <=14 ng/L 03/08/2024 2:[address] [facility] [place] Blood Venous blood specimen / Unknown Venipuncture / Unknown 03/08/2024 2:03 PM EDT 03/08/2024 2:[address] PA-C LAB BLOOD ORDERA BLES LABORATORY [facility] [place] [address] [place] [address] * (ABNORMAL) DIFFERENTIAL, AUTOMATED (03/08/2024 12:36 PM EDT) Pathologist [facility] WBC 8.12 4.00 - 10.80 K/uL 03/08/2024 12:42 PM EDT LABORATORY GL Neutrophils % 78.0(H) 40.0 - 75.0 % 03/08/2024 12:42 PM EDT LABORATORY GL Lymphocytes % 12.8(L) 18.0 - 42.0 % 03/08/2024 12:[address] [facility] [facility] [place] Monocytes % 6.2 1.0 - 11.0 % 03/08/2024 12:42 PM EDT LABORATORY [facility] Eosinophils % 2.3 0.0 - 6.0 % 03/08/2024 12:42 PM EDT LABORATORY GL Basophils % 0.2 0.0 - 2.0 % 03/08/2024 12:[address] [facility] [facility] [place] Immature Granulocytes % 0.5 0.0 - 2.0 % 03/08/2024 12:[address] [facility] [place] Absolute Neutrophils 6.33 1.80 - 7.70 K/uL 03/08/2024 12:[address] [facility] [place] Absolute Lymphocytes 1.04 1.00 - 4.80 K/ul 03/08/2024 12:42 PM EDT LABORATORY GL Absolute Monocytes 0.50 0.00 - 1.10 K/uL 03/08/2024 12:42 PM EDT LABORATORY GL Absolute Eosinophils 0.19 0.00 - 0.70 K/uL 03/08/2024 12:42 PM EDT LABORATORY GL Absolute Basophils 0.02 0.00 - 0.20 K/uL 03/08/2024 12:42 PM EDT LABORATORY GL Absolute Immature Granulocytes 0.04 0.00 - 0.20 K/uL 03/08/2024 12:[address] [facility] [place] Blood Venous blood specimen / Unknown Venipuncture / Unknown 03/08/2024 12:36 PM EDT 03/08/2024 12:38 PM EDT Zac Ponce DO LAB BLOOD ORDERABLES LABORATORY [address] [address] * (ABNORMAL) CBC (03/08/2024 12:36 PM EDT) WBC 8.12 4.00 - 10.80 K/uL 03/08/2024 12:[address] [facility] [place] RBC 3.56 3.85 - 5.15 M/uL 03/08/2024 12:[address] [facility] [place] HGB 10.1(L) 12.0 - 15.3 g/dL 03/08/2024 12:[address] [facility] [place] HCT 33.9(L) 36.0 - 45.2 % 03/08/2024 12:[address] [facility] [place] MCV 95.2 81.5 - 97.5 fL 03/08/2024 12:[address] [facility] [place] MCH 28.4 27.0 - 34.0 pg 03/08/2024 12:[address] [facility] [place] MCHC 29.8 32.0 - 36.0 g/dL 03/08/2024 12:[address] [facility] [place] RDW 15.9 11.5 - 15.5 % 03/08/2024 12:[address] [facility] [place] PLT 267 140 - 400 K/uL 03/08/2024 12:[address] [facility] [place] MPV 9.1 6.6 - 11.1 fL 03/08/2024 12:[address] [facility] [place] nRBCs 0 <=0 /100 WBCs 03/08/2024 12:[address] [facility] [place] Blood Venous blood specimen / Unknown Venipuncture / Unknown 03/08/2024 12:36 PM EDT 03/08/2024 12:38 PM EDT Zac Ponce [employer] LAB BLOOD ORDERABLES LABORATORY [address] [address] * PT INR (03/08/2024 12:36 PM EDT) Pathologist [facility] Prothrombin Time 12.1 11.6 - 15.2 seconds 03/08/2024 12:[address] [facility] [place] INR 0.9 0.8 - 1.2 03/08/2024 12:[address] [facility] [place] Blood Venous blood specimen / Unknown Venipuncture / Unknown 03/08/2024 12:36 PM EDT 03/08/2024 12:39 PM EDT Narrative LABORATORY [facility] [place] - 03/08/2024 12:55 PM EDT Warfarin Therapy INR: 2.0-3.0 conventional anticoagulation INR: 2.5-3.5 high intensity anticoagulation Zac Ponce [employer] LAB BLOOD ORDERABLES Performing Organization Address City/[facility]/ZIP Co de Phone Number LABORATORY [address] [address] * (ABNORMAL) TROPONIN T, HIGH SENSITIVITY (03/08/2024 12:36 PM EDT) [facility] Troponin T, High Sensitivity 54(H) <=14 ng/L 03/08/2024 12:[address] [facility] [place] Blood Venous blood specimen / Unknown Venipuncture / Unknown 03/08/2024 12:36 PM EDT 03/08/2024 12:39 PM EDT Zac Ponce [employer] LAB BLOOD ORDERABLES Performing Organization Address City/[facility]/ZIP Co de Phone Number LABORATORY [address] [address] * BNP, NT-PRO (03/08/2024 12:36 PM EDT) [facility] BNP, NT-Pro 147 <300 pg/mL 03/08/2024 1:09 PM EDT LABORATORY [facility] Blood Venous blood specimen / Unknown Venipuncture / Unknown 03/08/2024 12:36 PM EDT 03/08/2024 12:39 PM EDT Narrative LABORATORY [facility] - 03/08/2024 1:09 PM EDT Exclude Heart Failure: <300 pg/mL Diagnose Heart Failure: Age <50 yr: >450 pg/mL 50-75 yr: >900 pg/mL >75 yr: >1800 pg/mL GFR is 30-59 mL/min: >1200 pg/mL or Age-adjusted values GFR <30 mL/min: do not use, not reliable Prognostic threshold: 1000 pg/mL Zac Ponce DO LAB BLOOD ORDERABLES LABORATORY [facility] [address] [place] [address] * (ABNORMAL) COMPREHENSIVE METABOLIC PANEL (03/08/2024 12:36 PM EDT) BUN 19 6 - 20 mg/dL 03/08/2024 1:09 PM EDT LABORATORY [facility] Creatinine 0.9 0.5 - 1.0 mg/dL 03/08/2024 1:09 PM EDT LABORATORY [facility] Estimated Glomerular Filtration Rate 74 >=60 mL/min 03/08/2024 1:09 PM EDT LABORATORY [facility] Comment:eGFR is calculated b ased on the CKD-EPI 2020 equation Sodium 140 135 - 146 mmol/L 03/08/2024 1:09 PM EDT LABORATORY [facility] Potassium 3.9 3.5 - 5.1 mmol/L 03/08/2024 1:09 PM EDT LABORATORY [facility] Chloride 97(L) 98 - 107 mmol/L 03/08/2024 1:09 PM EDT LABORATORY [facility] CO2 33(H) 22 - 32 mmol/L 03/08/2024 1:09 PM EDT LABORATORY [facility] Anion Gap 10 7 - 15 mmol/L 03/08/2024 1:09 PM EDT LABORATORY [facility] Glucose 212(H) 70 - 120 mg/dL 03/08/2024 1:09 PM EDT LABORATORY [facility] Albumin 3.8 3.8 - 5.0 g/dL 03/08/2024 1:09 PM EDT LABORATORY [facility] AST 12 10 - 35 U/L 03/08/2024 1:09 PM EDT LABORATORY [facility] Alkaline Phosphatase 106 35 - 130 U/L 03/08/2024 1:09 PM EDT LABORATORY [facility] Bilirubin, Total <0.2 <=1.2 mg/dL 03/08/2024 1:09 PM EDT LABORATORY [facility] Calcium 8.7 8.4 - 10.2 mg/dL 03/08/2024 1:09 PM EDT LABORATORY [facility] Protein 6.4 6.0 - 8.3 g/dL 03/08/2024 1:09 PM EDT LABORATORY [facility] ALT 16 10 - 35 U/L 03/08/2024 1:09 PM EDT LABORATORY [facility] Blood Venous blood specimen / Unknown Venipuncture / Unknown 03/08/2024 12:36 PM EDT 03/08/2024 12:39 PM EDT Zac Ponce DO LAB BLOOD ORDERABLES Performing Organization Address City/[facility] Co de Phone Number LABORATORY [address] [address] * EXTRA LIGHT BLUE TOP (03/08/2024 12:36 PM EDT) Blood Venous blood specimen / Unknown Venipuncture / Unknown 03/08/2024 12:36 PM EDT 03/08/2024 12:39 PM EDT Zac Ponce DO LAB BLOOD ORDERABLES LABORATORY [address] [address] * EXTRA GOLD TOP (03/08/2024 12:33 PM EDT) Blood Venous blood specimen / Unknown Venipuncture / Unknown 03/08/2024 12:33 PM EDT 03/08/2024 12:[address] PA-C LAB BLOOD ORDERA BLES Performing Organization Address City/[facility]/ZIP Co de Phone Number [address] [address] * XR CHEST 2 VIEWS (03/08/2024 12:31 PM EDT) Anatomical Region Laterality Modality Chest Digital Radiogra phy 03/08/2024 12:2 7 PM EDT Impressions 03/08/2024 1:17 PM EDT IMPRESSION: Stable chest examination. THIS DOCUMENT HAS BEEN ELECTRONICALLY SIGNED BY SANDRA RICHARDS MD Narrative 03/08/2024 1:17 PM EDT PROCEDURE INFORMATION: Exam: XR Chest Exam date and time: 03/08/2024 12:27 PM Age: 63 years old Clinical indication: Other: SOB; Additional info: Chest pain TECHNIQUE: Imaging protocol: Radiologic exam of the chest. Views: 2 views. COMPARISON: CT PULMONARY EMBOLUS W CONTRAST 12/19/2023 2:41 PM FINDINGS: Lungs: Lungs are hyperexpanded. Increased attenuation noted over the lung bases thought secondary to overlying soft tissues. Pleural spaces: Indistinct costophrenic angles bilaterally unchanged, may reflect small pleural effusions versus pleural thickening. Heart/Mediastinum: Stable mild prominence of the pulmonary interstitium cardiomediastinal silhouette stable. Bones/joints: No acute osseous abnormality identified. Procedure Note Sandra Richards III, MD - 03/08/2024 PROCEDURE INFORMATION: Exam: XR Chest Exam date and time: 03/08/2024 12:27 PM Age: 63 years old Clinical indication: Other: SOB; Additional info: Chest pain TECHNIQUE: Imaging protocol: Radiologic exam of the chest. Views: 2 views. COMPARISON: CT PULMONARY EMBOLUS W CONTRAST 12/19/2023 2:41 PM FINDINGS: Lungs: Lungs are hyperexpanded. Increased attenuation noted over the lungbases thought secondary to overlying soft tissues. Pleural spaces: Indistinct costophrenic angles bilaterally unchanged, may reflect small pleural effusions versus pleural thickening. Heart/Mediastinum: Stable mild prominence of the pulmonary interstitium cardiomediastinal silhouette stable. Bones/joints: No acute osseous abnormality identified. IMPRESSION IMPRESSION: Stable chest examination. THIS DOCUMENT HAS BEEN ELECTRONICALLY SIGNED BY SANDRA RICHARDS MD Zac D Hark DO RADIOLOGY (RAD GENER AL) * RESPIRATORY PATHOGEN PANEL, PCR (03/08/2024 12:23 PM EDT) Pathologist [facility] Adenovirus by PCR Negative Negative 024 1:[address] [facility] [place] Coronavirus 229E by PCR Negative Negative 03/08/2024 1:[address] [facility] [place] Coronavirus HKU1 by PCR Negative Negative 03/08/2024 1:[address] [facility] [place] Coronavirus NL63 by PCR Negative Negative 03/08/2024 1:[address] [facility] [place] Coronavirus OC43 by PCR Negative Negative 03/08/2024 1:[address] [facility] [place] Coronavirus SARS-CoV-2 by PCR Negative Negative 03/08/2024 1:[address] [facility] [place] Human Metapneumovirus by PCR Negative Negative 03/08/2024 1:[address] [facility] [place] Rhinovirus/Enterovi jay by PCR Negative Negative 03/08/2024 1:[address] [facility] [place] Influenza A Virus by PCR Negative Negative 03/08/2024 1:[address] [facility] [place] Influenza B Virus by PCR Negative Negative 03/08/2024 1:[address] [facility] [place] Parainfluenza Virus 1 by PCR Negative Negative 03/08/2024 1:[address] [facility] [place] Parainfluenza Virus 2 by PCR Negative Negative 03/08/2024 1:[address] [facility] [place] Parainfluenza Virus 3 by PCR Negative Negative 03/08/2024 1:[address] [facility] [place] Parainfluenza Virus 4 by PCR Negative Negative 03/08/2024 1:[address] [facility] [place] Respiratory Syncytial Virus by PCR Negative Negative 03/08/2024 1:[address] [facility] [place] Bordetella pertussis by PCR Negative Negative 03/08/2024 1:[address] [facility] [place] Chlamydia pneumoniae by PCR Negative Negative 03/08/2024 1:[address] [facility] [place] Mycoplasma pneumoniae by PCR Negative Negative 03/08/2024 1:[address] [facility] [place] Bordetella parapertussis by PCR Negative Negative 03/08/2024 1:[address] [facility] [place] Comment: The primers that detect Rhinovirus may cross react with some Enterorviruses. The validation of bronchial specimens, tracheal aspirates, and throats for this assay was developed and performance characteristics determined by [employer]. The validation of alternate specimen types has not been cleared or approved by the U.S. Food and Drug Administration (FDA). It has been determined that such clearance or approval is not necessary. Upper Respiratory Mid-turbinate nasal swab / Unknown Non-blood Collection / Unknown 03/08/2024 12:23 PM EDT 03/08/2024 12:26 PM EDT Zac Ponce DO LAB MICRO - [place] [address] documented in this encounter Visit Diagnoses Diagnosis COPD exacerbation (HCC)- Primary Obstructive chronic bronchitis with exacerbation Shortness of breath COPD exacerbation (HCC) Obstructive chronic bronchitis with exacerbation Hypoxia Hypoxemia Chest pain Chest pain, unspecified Acute on chronic respiratory failure with hypoxia and hypercapnia (HCC) Ambulatory dysfunction Chronic diastolic heart failure (HCC) Chronic diastolic heart failure Chronic hypoxemic respiratory failure (HCC) Chronic respiratory failure Acute on chronic respiratory failure with hypoxia and hypercapnia (HCC) Type 2 diabetes mellitus with stage 3a chronic kidney disease, without long-term current use of insulin (HCC) Closed nondisplaced fracture of right clavicle with routine healing Cataract Unspecified cataract documented in this encounter Administered Medications Inactive Administered Medications - up to 3 most recent administrations Medication Order MAR Action Action Date Dose Rate Site Acetaminophen (Tylenol) tab 650 mg 650 mg, Oral, Q6H PRN Pain, Mild, Fever >38C(100.5F), Starting on 03/08/24 at 1807, Until Sun03/11/24 at 1739, Maximum of 4 grams (4000 mg) per day. Given 03/10/2024 8:42 PM EDT 650 mg Given 03/09/2024 4:03 PM EDT 650 mg Given 03/09/2024 8:15 AM EDT 650 mg albuterol-ipratropium (Duoneb) inhalation solution 3 mL 3 mL, Nebulizer, ONCE, On 03/08/24 at 1445, For 1 dose, 3 mL = 0.5 mg ipratropium/ 2.5 mg albuterol Given 03/08/2024 2:21 PM EDT 3 mL albuterol-ipratropium (Duoneb) inhalation solution 3 mL 3 mL, Nebulizer, ONCE, On Sun03/08/24 at 1715, For 1 dose, 3 mL = 0.5 mg ipratropium/ 2.5 mg albuterol Given 03/08/2024 4:49 PM EDT 3 mL albuterol-ipratropium (Duoneb) inhalation solution 3 mL 3 mL, Nebulizer, RESPQID, First dose on Sun03/08/24 at 1900, Until Discontinued, 3 mL = 0.5 mg ipratropium/ 2.5 mg albuterol Given 03/11/2024 10:23 AM EDT 3 mL Given 03/11/2024 7:37 AM EDT 3 mL Given 03/10/2024 6:27 PM EDT 3 mL albuterol-ipratropium (Duoneb) inhalation solution 3 mL 3 mL, Nebulizer, Q4H PRN Dyspnea, Starting on Sun03/08/24 at 2209, Until Sun03/11/24 at 1739, 3 mL = 0.5 mg ipratropium/ 2.5 mg albuterol Apixaban (Eliquis) tab 5 mg 5 mg, Oral, BID (.AM/PM), First dose on Sun03/08/24 at 2100, Until Discontinued Given 03/11/2024 8:16 AM EDT 5 mg Given 03/10/2024 8:41 PM EDT 5 mg Given 03/10/2024 8:23 AM EDT 5 mg Azithromycin (Zithromax) tab 500 mg 500 mg, Oral, Daily(AM), First dose on Sun03/08/24 at 1830, Last dose on Sun03/12/24 at 0900, For 5 days Given 03/11/2024 8:14 AM EDT 500 mg Given 03/10/2024 8:23 AM EDT 500 mg Given 03/09/2024 7:53 AM EDT 500 mg Benzonatate (Tessalon Perles) cap 100 mg 100 mg, Oral, TID(AM/NOON/HS), First dose on Sun03/08/24 at 2200, Until Discontinued, This med should NOT be Crushed or Chewed Given 03/11/2024 11:48 AM EDT 10 0 mg Given 03/10/2024 8:42 PM EDT 100 mg Given 03/09/2024 10:05 PM EDT 100 mg buPROPion extended release (SR) (Wellbutrin SR) tab 150 mg 150 mg, Oral, BID (.AM/PM), First dose on [facility] 03/08/24 at 2100, Until Discontinued, [Therapeutic Interchange from Wellbutrin XL] Given 03/11/2024 8:15 AM EDT 150 mg Given 03/10/2024 8:42 PM EDT 150 mg Given 03/10/2024 8:23 AM EDT 150 mg dextrose 50% inj 25 mL 25 mL, IV Push, PRN Hypoglycemia, Other, For blood glucose 54 - 69 mg/dL or 70 - 100 mg/dL with symptoms AND patient is unresponsive, NPO, OR unable to swallow, Starting on 03/08/24 at 1755, Until Sun03/11/24 at 1739, Administer IV. Recheck blood glucose after 15 minutes. Notify provider. dextrose 50% inj 50 mL 50 mL, IV Push, PRN Hypoglycemia, Other, For blood glucose below 54 mg/dL AND patient unresponsive, NPO, OR unable to swallow, Starting on 03/08/24 at 1755, Until Sun03/11/24 at 1739, Administer IV. Recheck blood glucose in 15 minutes. Notify provider. Rixytucrmow-Dplejnygpwzl-Chiwwpkaet (Trelegy Ellipta) 100-62.5-25 MCG/ACT inhaler 1 Puff 1 Puff, Inhalation, Daily(AM), First dose on [facility] 03/09/24 at 0900, Until Discontinued Given 03/11/2024 7:37 AM EDT 1 Pu ff Given 03/10/2024 7:33 AM EDT 1 Puff Given 03/09/2024 7:44 AM EDT 1 Puff Furosemide (Lasix) tab 80 mg 80 mg, Oral, BID (0900, 1600), First dose on Sun03/09/24 at 0900, Until Discontinued Given 03/11/2024 8:14 AM EDT 80 m g Given 03/10/2024 3:57 PM EDT 80 mg Given 03/10/2024 9:39 AM EDT 80 mg Gabapentin (Neurontin) cap 600 mg 600 mg, Oral, BID (.AM/PM), First dose on Sun03/08/24 at 2100, Until Discontinued Given 03/11/2024 8:16 AM EDT 600 mg Given 03/10/2024 8:42 PM EDT 600 mg Given 03/10/2024 8:23 AM EDT 600 mg glucagon (Glucagen) inj 1 mg 1 mg, Intramuscular, PRN Hypoglycemia, Other, If patient is unresponsive, or NPO and has no IV access, Starting on Sun03/08/24 at 1755, Until Sun03/11/24 at 1739, NPO and no IV access with either 1) blood glucose less than 100 mg/dL and symptomatic OR 2) blood glucose less than 70 mg/dL and asymptomatic Glucose (Glutose 15) 40 % gel 15 g of glucose 15 g of glucose, Oral, PRN Hypoglycemia (low sugar), Other, For blood glucose 54 - 69 mg/dL or 70 - 100 mg/dL with symptoms AND patient alert WITH difficulty chewing/swallowing, Starting on 03/08/24 at 1755, Until Sun03/11/24 at 1739, Administer gel. Recheck blood glucose after 15 minutes. Notify provider. 37.5 gram tube = 15 grams glucose = 1 each Glucose (Glutose 15) 40 % gel 30 g of glucose 30 g of glucose, Oral, PRN Hypoglycemia (low sugar), Other, For blood glucose below 54 mg/dL AND patient alert WITH difficulty chewing/swallowing, Starting on Sun03/08/24 at 1755, Until Sun03/11/24 at 1739, Administer gel. Recheck blood glucose after 15 minutes. Notify provider. 37.5 gram tube = 15 grams glucose = 1 each glucose chew tab 16 g 16 g, Oral, PRN Hypoglycemia, Other, For blood glucose 54 - 69 mg/dL or 70 - 100 mg/dL with symptoms and patient alert without difficulty chewing/swallowing., Starting on Sun03/08/24 at 1755, Until Sun03/11/24 at 1739 guaiFENesin-dm (Robitussin DM) oral syrup 10 mL 10 mL, Oral, Q6H PRN Cough, Starting on Sun03/08/24 at 1807, Until Sun03/11/24 at 1739 insulin aspart (NovoLOG) inj 5 Units 5 Units, Subcutaneous, ONCE, 1 dose, On 03/09/24 at 0045 Given 03/09/2024 12:13 AM EDT 5 Units Arm Left Upper insulin aspart (NovoLOG) inj Subcutaneous, W/MEALS AND HS, First dose on 03/08/24 at 2200, Until Discontinued, HIGH DOSE (Moderately Insulin Resistance): Sliding Scale Correctional insulin may be given if the patient is NPO. Dose based on standard build from Insulin Calculator. Do not modify insulin doses in administration instructions! , Glucose less than 70 instructions: Obtain STAT lab blood glucose and call covering provider., Glucose 80-150 (units): 0, Glucose 151-200 (units): 3, Glucose 201-250 (units): 6, Glucose 251-300 (units): 9, Glucose greater than 300 (units): 12, Glucose greater than 300 instructions: Give suggested insulin dose and call covering provider. Given 03/09/2024 10:05 PM EDT 6 Units Arm Right Upper Given 03/09/2024 4:51 PM EDT 12 Units Ar m Right Upper Given 03/09/2024 11:59 AM EDT 6 Units A rm Left Upper insulin aspart (NovoLOG) inj Subcutaneous, W/MEALS AND HS, First dose on Sun03/10/24 at 0800, Until Discontinued, HIGH DOSE - Steroid Patients (Steroid patient recommended Starting dose): Sliding Scale Correctional insulin may be given if the patient is NPO. Dose based on standard build from Insulin Calculator. Do not modify insulin doses in administration instructions! , Glucose less than 70 instructions: Obtain STAT lab blood glucose and call covering provider., Glucose 80-150 (units): 0, Glucose 151-200 (units): 4, Glucose 201-250 (units): 8, Glucose 251-300 (units): 12, Glucose greater than 300 (units): 15, Glucose greater than 300 instructions: Give suggested insulin dose and call covering provider. Given 03/11/2024 11:48 AM EDT 12 Units Arm Right Upper Given 03/10/2024 5:27 PM EDT 15 Units Ar m Left Upper Given 03/10/2024 12:14 PM EDT 4 Units A rm Right Upper Ioversol (Optiray 350) 74 % inj 100 mL 100 mL, Intravenous, ONCE, On 03/08/24 at 1715, For 1 dose, Radiology Medication Routing (Non-IR) Given 03/08/2024 4:36 PM EDT 100 mL loperamide (Imodium) cap 2 mg 2 mg, Oral, Q4H PRN Diarrhea, Starting on Sun03/11/24 at 1130, Until Sun03/11/24 at 1739, Maximum of 16 mg per day recommended Given 03/11/2024 11:49 AM EDT 2 mg melatonin tab 3 mg 3 mg, Oral, HS, First dose on Sun03/08/24 at 2200, Until Discontinued Given 03/10/2024 8:42 PM EDT 3 mg Given 03/09/2024 10:05 PM EDT 3 mg Given 03/08/2024 9:12 PM EDT 3 mg methylPREDNISolone sodium succ (SOLU-Medrol) inj 40 mg 40 mg, Intravenous, Daily(AM), First dose on Sun03/09/24 at 0900, Until Discontinued Given 03/10/2024 8:23 AM EDT 40 m g Given 03/09/2024 9:05 AM EDT 40 mg methylPREDNISolone sodium succ (SOLU-Medrol) inj 60 mg 60 mg, IV Push, ONCE, On Sun03/08/24 at 1445, For 1 dose Given 03/08/2024 2:31 PM EDT 60 mg Nicotine (Nicoderm CQ) 14 MG/24HR patch 1 Patch 1 Patch, Transdermal, Daily(AM), First dose on Sun03/08/24 at 1830, Until Discontinued, Do NOT cut the patch. Remove any Nicotine patches the patient may currently be wearing prior to applying the new patch. Place on clean hairless area. Remove for patient showers. WASTE INFO: Return packaging and waste medication in zip lock bag to pharmacy - [facility] container. Patch Applied 03/11/2024 8:17 AM EDT 1 Patch Arm Left Upper Patch Applied 03/10/2024 8:25 AM EDT 1 Patch Arm Right Upper Patch Applied 03/09/2024 8:00 AM EDT 1 Patch Arm Left Upper oxyCODONE (Oxy IR) tab 5 mg 5 mg, Oral, ONCE, On 03/08/24 at 2100, For 1 dose Given 03/08/2024 9:12 PM EDT 5 mg oxygen GAS Inhalation, OXYGEN, First dose on Sun03/09/24 at 0000, Until Discontinued, Device/Managed by: NIV or Ventilator Device, Goal SPO2 (%): 91-95, Notify Provider: For sudden DECREASE in resting SPO2 to less than 85% and when escalating delivery device., Initial FiO2 (%): 40, Titration Interval: Q2 minutes and as needed., Wean patient off Oxygen when the oxygen saturation is greater than or equal to 93% Oxygen On 03/11/2024 8:00 AM EDT Oxygen On 03/11/2024 12:00 AM EDT Oxygen On 03/10/2024 4:00 PM EDT potassium chloride ER tab 30 mEq 30 mEq, Oral, BID (.AM/PM), First dose on Sun03/10/24 at 0900, Until Discontinued, This med should NOT be Crushed or Chewed Given 03/11/2024 8:15 AM EDT 30 mEq Given 03/10/2024 8:42 PM EDT 30 mEq Given 03/10/2024 8:31 AM EDT 30 mEq predniSONE (Deltasone) tab 40 mg 40 mg, Oral, Daily(AM), First dose on Sun03/11/24 at 0900, Until Discontinued Given 03/11/2024 8:15 AM EDT 40 mg rOPINIRole (Requip) tab 2 mg 2 mg, Oral, BID (.AM/PM), First dose on Sun03/08/24 at 2100, Until Discontinued Given 03/11/2024 8:15 AM EDT 2 mg Given 03/10/2024 8:41 PM EDT 2 mg Given 03/10/2024 8:23 AM EDT 2 mg rosuvastatin (Crestor) tab 20 mg 20 mg, Oral, Daily(AM), First dose on Sun03/09/24 at 0900, Until Discontinued Given 03/11/2024 8:14 AM EDT 20 mg Given 03/10/2024 8:23 AM EDT 20 mg Given 03/09/2024 7:53 AM EDT 20 mg sertraline (Zoloft) tab 100 mg 100 mg, Oral, Daily(AM), First dose on Sun03/09/24 at 0900, Until Discontinued Given 03/11/2024 8:15 AM EDT 100 mg Given 03/10/2024 8:23 AM EDT 100 mg Given 03/09/2024 7:54 AM EDT 100 mg sodium chloride 0.9 % flush/inj 3 mL 3 mL, IV Push, PRN Other, Line Patency, Starting on 03/08/24 at 1806, Until Sun03/11/24 at 1739, Do not flush if lock, PICC, or central line not in place, IV infusing or unable to flush traZODone (Desyrel) tab 100 mg 100 mg, Oral, HS, First dose on 03/08/24 at 2200, Until Discontinued Given 03/10/2024 8:42 PM EDT 100 mg Given 03/09/2024 10:05 PM EDT 100 mg Given 03/08/2024 10:15 PM EDT 100 mg documented in this encounter Active and Recently Administered Medications Times are shown in EDT. Scheduled Medication Order 03/09/2024 03/10/2024 03/11/2024 albuterol-ipratropium (Duoneb) inhalation solution 3 mL 3 mL, Nebulizer, RESPQID, First dose on 03/08/24 at 1900, Until Discontinued, 3 mL = 0.5 mg ipratropium/ 2.5 mg albuterol 0737 (Given - Provider: Efraín Paz, CERTIFIED SKI PATROLLER)0938 (Given - Provider: Gloria Wiley, VICE PRESIDENT FIXED INCOME)1423 (Given - Provider: Jorge Will, VICE PRESIDENT FIXED INCOME)1957 (Given - Provider: Alejo Paul, CERTIFIED SKI PATROLLER) 0733 (Given - Provider: Murphy Corona, DARYA)1031 (Given - Provider: Muprhy Corona, CERTIFIED SKI PATROLLER)1520 (Given - Provider: Gloria Wiley, VICE PRESIDENT FIXED INCOME)1827 (Given - Provider: Griffin Jiang, CERTIFIED SKI PATROLLER) 0737 (Given - Provider: Elana Rivas, DARYA)1023 (Given - Provider: Elana Rivas RRT) Apixaban (Eliquis) tab 5 mg 5 mg, Oral, BID (.AM/PM), First dose on 03/08/24 at 2100, Until Discontinued 0754 (Given - Provider: Cristóbal Lemon LPN)2205 (Given - Provider: Sury Carl RN) 0823 (Given - Provider: Jelena Goncalves RN)204 (Given - Provider: Kasia Jose RN) 0816 (Given - Provider: SUNIL Soto Instructor) Azithromycin (Zithromax) tab 500 mg 500 mg, Oral, Daily(AM), First dose on 03/08/24 at 1830, Last dose on Sun03/12/24 at 0900, For 5 days 0753 (Given - Provider: Cristóbal Lemon LPN) 0823 (Given - Provider: Jelena Goncalves RN) 0814 (Given - Provider: SUNIL Soto Instructor) Benzonatate (Tessalon Perles) cap 100 mg 100 mg, Oral, TID(AM/NOON/HS), First dose on 03/08/24 at 2200, Until Discontinued, This med should NOT be Crushed or Chewed 0550 (Given - Provider: Sury Carl RN)1159 (Given - Provider: Cristóbal Lemon LPN)2205 (Given - Provider: Sury Carl RN) 0600 (Not Given - Provider: Sury Carl RN - Reason: Refused-Notify Provider)1200 (Not Given - Provider: Jelena Goncalves RN - Reason: Refused-Notify Provider)204 (Given - Provider: Kasia Jose RN) 0600 (Not Given - Provider: Kasia Jose RN - Reason: Refused-Notify Provider)1148 (Given - Provider: SUNIL Soto Instructor) buPROPion extended release (SR) (Wellbutrin SR) tab 150 mg 150 mg, Oral, BID (.AM/PM), First dose on 03/08/24 at 2100, Until Discontinued, [Therapeutic Interchange from Wellbutrin XL] 0754 (Given - Provider: Cristóbal Lemon LPN)2205 (Given - Provider: Sury Carl RN) 0823 (Given - Provider: Jelena Goncalves RN)204 (Given - Provider: Kasia Jose RN) 0815 (Given - Provider: SUNIL Soto Instructor) Fluticasone-Umeclidinium -Vilanterol (Trelegy Ellipta) 100-62.5-25 MCG/ACT inhaler 1 Puff 1 Puff, Inhalation, Daily(AM), First dose on 03/09/24 at 0900, Until Discontinued 0744 (Given - Provider: Efraín Paz, DARYA) 0733 (Given - Provider: Murphy Corona, DARYA) 0737 (Given - Provider: Elana Rivas RRT) Furosemide (Lasix) tab 80 mg 80 mg, Oral, BID (0900, 1600), First dose on 03/09/24 at 0900, Until Discontinued 0852 (Given - Provider: Cristóbal Lemon LPN)1602 (Given - Provider: Cristóbal Lemon LPN) 0939 (Given - Provider: Jelena Goncalves RN)1557 (Given - Provider: Jelena Goncalves RN) 0814 (Given - Provider: Nena Juárez, [facility] Instructor) Gabapentin (Neurontin) cap 600 mg 600 mg, Oral, BID (.AM/PM), First dose on 03/08/24 at 2100, Until Discontinued 0754 (Given - Provider: Cristóbal Lemon LPN)2205 (Given - Provider: Sury Carl RN) 0823 (Given - Provider: Jelena Goncalves, SAGE)204 (Given - Provider: Kasia Jose RN) 0816 (Given - Provider: Nena Juárez, [facility] Instructor) insulin aspart (NovoLOG) inj 5 Units (COMPLETED) 5 Units, Subcutaneous, ONCE, 1 dose, On 03/09/24 at 0045 0013 (Given - Provider: Sury Carl RN) insulin aspart (NovoLOG) inj (CANCELED) Subcutaneous, W/MEALS AND HS, First dose on 03/08/24 at 2200, Until Discontinued, HIGH DOSE (Moderately Insulin Resistance): Sliding Scale Correctional insulin may be given if the patient is NPO. Dose based on standard build from Insulin Calculator. Do not modify insulin doses in administration instructions! , Glucose less than 70 instructions: Obtain STAT lab blood glucose and call covering provider., Glucose 80-150 (units): 0, Glucose 151-200 (units): 3, Glucose 201-250 (units): 6, Glucose 251-300 (units): 9, Glucose greater than 300 (units): 12, Glucose greater than 300 instructions: Give suggested insulin dose and call covering provider. 0807 (Given - Provider: Cristóbal Lemon LPN)1159 (Given - Provider: Cristóbal Lemon LPN)1651 (Given - Provider: Cristóbal Lemon LPN)2205 (Given - Provider: Sury Carl, SAGE) insulin aspart (NovoLOG) inj Subcutaneous, W/MEALS AND HS, First dose on 03/10/24 at 0800, Until Discontinued, HIGH DOSE - Steroid Patients (Steroid patient recommended Starting dose): Sliding Scale Correctional insulin may be given if the patient is NPO. Dose based on standard build from Insulin Calculator. Do not modify insulin doses in administration instructions! , Glucose less than 70 instructions: Obtain STAT lab blood glucose and call covering provider., Glucose 80-150 (units): 0, Glucose 151-200 (units): 4, Glucose 201-250 (units): 8, Glucose 251-300 (units): 12, Glucose greater than 300 (units): 15, Glucose greater than 300 instructions: Give suggested insulin dose and call covering provider. 0831 (Given - Provider: Jelena Goncalves RN)1214 (Given - Provider: Jelena Goncalves, SAGE)1727 (Given - Provider: Jelena Goncalves RN)2200 (No Insulin - Provider: Kasia Jose RN - Reason: Parameter(s) Not Met) 0800 (Not Given - Provider: SN Jared - Reason: Parameter(s) Not Met)1148 (Given - Provider: Nena Juárez [facility] Instructor) melatonin tab 3 mg 3 mg, Oral, HS, First dose on 03/08/24 at 2200, Until Discontinued 2204 (Given - Provider: Sury Carl, SAGE) 2041 (Given - Provider: Kasia Jose, SAGE) methylPREDNISolone sodium succ (SOLU-Medrol) inj 40 mg (CANCELED) 40 mg, Intravenous, Daily(AM), First dose on 03/09/24 at 0900, Until Discontinued 904 (Given - Provider: Ellie Carter RN) 0823 (Given - Provider: Jelena Goncalves RN) Nicotine (Nicoderm CQ) 14 MG/24HR patch 1 Patch 1 Patch, Transdermal, Daily(AM), First dose on Sun03/08/24 at 1830, Until Discontinued, Do NOT cut the patch. Remove any Nicotine patches the patient may currently be wearing prior to applying the new patch. Place on clean hairless area. Remove for patient showers. WASTE INFO: Return packaging and waste medication in zip lock bag to pharmacy - [facility] container. 0800 (Patch Applied - Provider: Cristóbal Lemon LPN)0859 (Patch Removed - Provider: Cristóbal Lemon LPN) 0824 (Patch Removed - Provider: Jelena Goncalves RN)0825 (Patch Applied - Provider: Jelena Goncalves RN) 0817 (Patch Applied - Provider: SUNIL Soto Instructor)0825 (Patch Removed - Provider: SUNIL Soto Instructor)1338 (Due: Patch Removed - Provider: Discharge, Physician - Comment: Time automatically adjusted from order being discontinued) oxygen GAS(Linked Group 1) Inhalation, OXYGEN, First dose on Sun03/09/24 at 0000, Until Discontinued, Device/Managed by: NIV or Ventilator Device, Goal SPO2 (%): 91-95, Notify Provider: For sudden DECREASE in resting SPO2 to less than 85% and when escalating delivery device., Initial FiO2 (%): 40, Titration Interval: Q2 minutes and as needed., Wean patient off Oxygen when the oxygen saturation is greater than or equal to 93% 0000 (Oxygen On - Provider: Sury Carl RN)0800 (Oxygen On - Provider: Cristóbal Lemon LPN)1600 (Oxygen On - Provider: Cristóbal Lemon LPN) 0000 (Oxygen On - Provider: Sury Carl RN)0800 (Oxygen On - Provider: Jelena Goncalves RN)1600 (Oxygen On - Provider: Jelena Goncalves RN) 0000 (Oxygen On - Provider: Kasia Jose RN)0800 (Oxygen On - Provider: SUNIL Soto Instructor) potassium chloride ER tab 30 mEq 30 mEq, Oral, BID (.AM/PM), First dose on Sun03/10/24 at 0900, Until Discontinued, This med should NOT be Crushed or Chewed 830 (Given - Provider: Jelena Goncalves RN)2041 (Given - Provider: Kasia Jose RN) 814 (Given - Provider: SUNIL Soto Instructor) predniSONE (Deltasone) tab 40 mg 40 mg, Oral, Daily(AM), First dose on Sun03/11/24 at 0900, Until Discontinued 814 (Given - Provider: SUNIL Soto Instructor) rOPINIRole (Requip) tab 2 mg 2 mg, Oral, BID (.AM/PM), First dose on 03/08/24 at 2100, Until Discontinued 753 (Given - Provider: Cristóbal Lemon LPN)2204 (Given - Provider: Sury Carl RN) 822 (Given - Provider: Jelena Goncalves RN)2040 (Given - Provider: Kasia Jose RN) 15 (Given - Provider: SUNIL Soto Instructor) rosuvastatin (Crestor) tab 20 mg 20 mg, Oral, Daily(AM), First dose on Sun03/09/24 at 0900, Until Discontinued 752 (Given - Provider: Cristóbal Lemon LPN) 822 (Given - Provider: Jelena Goncalves RN) 08 (Given - Provider: SUNIL Soto Instructor) sertraline (Zoloft) tab 100 mg 100 mg, Oral, Daily(AM), First dose on Sun03/09/24 at 0900, Until Discontinued 753 (Given - Provider: Cristóbal Lemon LPN) 822 (Given - Provider: Jelena Goncalves RN) 0815 (Given - Provider: SUNIL Soto Instructor) traZODone (Desyrel) tab 100 mg 100 mg, Oral, HS, First dose on 03/08/24 at 2200, Until Discontinued 2204 (Given - Provider: Sury Carl RN) 2041 (Given - Provider: Kasia Jose RN) PRN Medication Order 03/09/2024 03/10/2024 03/11/2024 Acetaminophen (Tylenol) tab 650 mg 650 mg, Oral, Q6H PRN Pain, Mild, Fever >38C(100.5F), Starting on 03/08/24 at 1807, Until Sun03/11/24 at 1739, Maximum of 4 grams (4000 mg) per day. 0815 (Given - Provider: Cristóbal Lemon LPN - Comment: pt has a headache at this time)1603 (Given - Provider: Cristóbal Lemon LPN - Comment: pt c/o headache) 2041 (Given - Provider: Kasia Jose RN) albuterol-ipratropium (Duoneb) inhalation solution 3 mL 3 mL, Nebulizer, Q4H PRN Dyspnea, Starting on 03/08/24 at 2209, Until Sun03/11/24 at 1739, 3 mL = 0.5 mg ipratropium/ 2.5 mg albuterol dextrose 50% inj 25 mL 25 mL, IV Push, PRN Hypoglycemia, Other, For blood glucose 54 - 69 mg/dL or 70 - 100 mg/dL with symptoms AND patient is unresponsive, NPO, OR unable to swallow, Starting on Sun03/08/24 at 1755, Until Sun03/11/24 at 173, Administer IV. Recheck blood glucose after 15 minutes. Notify provider. dextrose 50% inj 50 mL 50 mL, IV Push, PRN Hypoglycemia, Other, For blood glucose below 54 mg/dL AND patient unresponsive, NPO, OR unable to swallow, Starting on 03/08/24 at 1755, Until Sun03/11/24 at 173, Administer IV. Recheck blood glucose in 15 minutes. Notify provider. glucagon (Glucagen) inj 1 mg 1 mg, Intramuscular, PRN Hypoglycemia, Other, If patient is unresponsive, or NPO and has no IV access, Starting on 03/08/24 at 1755, Until Sun03/11/24 at 173, NPO and no IV access with either 1) blood glucose less than 100 mg/dL and symptomatic OR 2) blood glucose less than 70 mg/dL and asymptomatic Glucose (Glutose 15) 40 % gel 15 g of glucose 15 g of glucose, Oral, PRN Hypoglycemia (low sugar), Other, For blood glucose 54 - 69 mg/dL or 70 - 100 mg/dL with symptoms AND patient alert WITH difficulty chewing/swallowing, Starting on Sun03/08/24 at 1755, Until Sun03/11/24 at 1739, Administer gel. Recheck blood glucose after 15 minutes. Notify provider. 37.5 gram tube = 15 grams glucose = 1 each Glucose (Glutose 15) 40 % gel 30 g of glucose 30 g of glucose, Oral, PRN Hypoglycemia (low sugar), Other, For blood glucose below 54 mg/dL AND patient alert WITH difficulty chewing/swallowing, Starting on 03/08/24 at 1755, Until Sun03/11/24 at 1739, Administer gel. Recheck blood glucose after 15 minutes. Notify provider. 37.5 gram tube = 15 grams glucose = 1 each glucose chew tab 16 g 16 g, Oral, PRN Hypoglycemia, Other, For blood glucose 54 - 69 mg/dL or 70 - 100 mg/dL with symptoms and patient alert without difficulty chewing/swallowing., Starting on Sun03/08/24 at 1755, Until Sun03/11/24 at 1739 guaiFENesin-dm (Robitussin DM) oral syrup 10 mL 10 mL, Oral, Q6H PRN Cough, Starting on 03/08/24 at 1807, Until Sun03/11/24 at 1739 loperamide (Imodium) cap 2 mg 2 mg, Oral, Q4H PRN Diarrhea, Starting on Sun03/11/24 at 1130, Until Sun03/11/24 at 1739, Maximum of 16 mg per day recommended 1149 (Given - Provider: Nena Juárez, [facility] Instructor) sodium chloride 0.9 % flush/inj 3 mL 3 mL, IV Push, PRN Other, Line Patency, Starting on 03/08/24 at 1806, Until Sun03/11/24 at 1739, Do not flush if lock, PICC, or central line not in place, IV infusing or unable to flush Linked Groups Order Group 1: Ventilation Method: Nocturnal Non-Invasive --- PEEP/EPAP/CPAP: 5 --- Changes Per Adult Protocol: Yes (CANCELED) QHS, First occurrence on 03/08/24 at 2200, Until Specified Routine And oxygen GASJump to med Inhalation, OXYGEN, First dose on Sun03/09/24 at 0000, Until Discontinued, Device/Managed by: NIV or Ventilator Device, Goal SPO2 (%): 91-95, Notify Provider: For sudden DECREASE in resting SPO2 to less than 85% and when escalating delivery device., Initial FiO2 (%): 40, Titration Interval: Q2 minutes and as needed., Wean patient off Oxygen when the oxygen saturation is greater than or equal to 93% documented in this encounter Advance Directives Latest Code Status on File Code Status Date Activated Date Inactivated Comments Full Code 03/08/2024 6:07 PM 03/11/2024 5:39 PM This order reflects the patients wishes and were consensually agreed upon. Question Answer Comments Discussion of Advance Directives occurred with: Patient Does the patient have a Living Will? No Does the patient have Health Care Power of Dice Person? No Code Status History Code Status Date [...] the patient have Health Care Power of Dice Person? No Bag Valve Device? Yes Intubation? No [...] Child First Alternate Health Care Agent Jazmine Cj Adult Child First Alternate Health Care Agent Care Teams Segmental Paver Installer Relationship Specialty Start Date End Date Marcos Maurice PA-C [id number] [facility] [place] [address] PCP - General Physician [employer] Manager 11/22/23 documented as of this encounter
--- OUTSIDE RECORDS SUMMARY | 2024-04-14 12:54 | External Medical Summary ---
Author Name Unknown Address Unknown Organization K1F:[facility] [address] [facility] [address] Laboratory Report Ordering Provider Test Date Status CHRIS BROUSSARD 03/08/2024 12:36:00 Final Observation Date Value Abnormality Reference (Units ) Status BUN 03/08/2024 12:36:00 19 6-20 (mg/dL) Final Creatinine 03/08/2024 12:36:00 0.9 0.5-1.0 (mg/dL) Final Glomerular filtration rate/1.73 sq M.predicted [Volume Rate/Area] in Serum, Plasma or Blood by Creatinine-based formula (CKD-EPI) 03/08/2024 12:36:00 74 >=60 (mL/min) Final eGFR is calculated based on the CKD-EPI 2020 equation Sodium 03/08/2024 12:36:00 140 135-146 (m mol/L) Final Potassium 03/08/2024 12:36:00 3.9 3.5-5.1 (m mol/L) Final Cl 03/08/2024 12:36:00 97 Below low normal 98- 107 (mmol/L) Final CO2 03/08/2024 12:36:00 33 Above high normal 22 -32 (mmol/L) Final Anion gap 03/08/2024 12:36:00 10 7-15 (mmol /L) Final Glucose 03/08/2024 12:36:00 212 Above high normal 70 -120 (mg/dL) Final Albumin 03/08/2024 12:36:00 3.8 3.8-5.0 (g /dL) Final AST (Aspartate aminotransferase) 03/08/2024 12:36:00 12 10-35 (U/L) Fin al Alk Phos 03/08/2024 12:36:00 106 35-130 (U/ L) Final Bilirubin, Total 03/08/2024 12:36:00 <0.2 <=1 .2 (mg/dL) Final Calcium 03/08/2024 12:36:00 8.7 8.4-10.2 ( mg/dL) Final Protein 03/08/2024 12:36:00 6.4 6.0-8.3 (g /dL) Final ALT (Alanine aminotransferase) 03/08/2024 12:36:00 16 10-35 (U/L) Umang conrad Performing Location LABORATORY [facility] - [address] [place], [place] [address]. [place] [address]
--- OUTSIDE RECORDS SUMMARY | 2024-04-14 12:54 | External Medical Summary ---
Author Name Unknown Address Unknown Organization : Laboratory Report Ordering Provider Test Date Status REBEKA STILL 03/09/2024 08:04:32 Final Observation Date Value Abnormality Reference (Units ) Status Glucose Point of Care 03/09/2024 08:04:32 201 Above high normal 70-120 (mg/dL) Final Performing Location
--- OUTSIDE RECORDS SUMMARY | 2024-04-14 12:54 | External Medical Summary ---
Author Name Unknown Address Unknown Organization : Laboratory Report Ordering Provider Test Date Status MONET RAINES 03/11/2024 07:09:02 Final Observation Date Value Abnormality Reference (Units ) Status Glucose Point of Care 03/11/2024 07:09:02 129 Above high normal 70-120 (mg/dL) Final Performing Location
--- OUTSIDE RECORDS SUMMARY | 2024-04-14 12:54 | External Medical Summary ---
Author Name Unknown Address Unknown Organization K1F:LABORATORY [facility] - [address] [place] [address] Laboratory Report Ordering Provider Test Date Status CHRIS BROUSSARD 03/08/2024 12:36:00 Final Observation Date Value Abnormality Reference (Units ) Status Troponin T 03/08/2024 12:36:00 54 Above high normal < =14 (ng/L) Final Performing Location LABORATORY [facility] - [address] [place] [address]
--- OUTSIDE RECORDS SUMMARY | 2024-04-14 12:54 | External Medical Summary ---
Author Name Unknown Address Unknown Organization K1F:[facility] - [address] [place] [address] Laboratory Report Ordering Provider Test Date Status CHRIS BROUSSARD 03/08/2024 12:36:00 Final Observation Date Value Abnormality Reference (Units ) Status SYNC LEUKOCYTES IN BLOOD BY AUTOMATED COUNT 03/08/2024 12:36:00 8.12 4.00-10.80 (K/uL) Final Segs 03/08/2024 12:36:00 78.0 Above high normal 40.0-75.0 (%) Final Lymphs % 03/08/2024 12:36:00 12.8 Below low normal 18.0-42.0 (%) Final Monos 03/08/2024 12:36:00 6.2 1.0-11.0 (%) Final Eosinophils 03/08/2024 12:36:00 2.3 0.0-6.0 (%) Final Basos 03/08/2024 12:36:00 0.2 0.0-2.0 (%) Final Immature Granulocyte, Percent 03/08/2024 12:36:00 0.5 0.0-2.0 (%) Final Absolute Segs 03/08/2024 12:36:00 6.33 1.80-7.70 (K/uL) Final Lymphs, absolute 03/08/2024 12:36:00 1.04 1.00-4.80 (K/ul) Final Monos, Abs 03/08/2024 12:36:00 0.50 0.00-1.10 (K/uL) Final Eos, Abs 03/08/2024 12:36:00 0.19 0.00-0.70 (K/uL) Final Basos, Abs 03/08/2024 12:36:00 0.02 0.00-0.20 (K/uL) Final Immature Granulocytes, Number 03/08/2024 12:36:00 0.04 0.00-0.20 (K/uL) Final Performing Location LABORATORY [facility] - [address] [place] [address]
--- OUTSIDE RECORDS SUMMARY | 2024-04-14 12:54 | External Medical Summary ---
Author Name Unknown Address Unknown Organization : Laboratory Report Ordering Provider Test Date Status MONET RAINES 03/10/2024 16:12:52 Final Observation Date Value Abnormality Reference (Units ) Status Glucose Point of Care 03/10/2024 16:12:52 304 Above high normal 70-120 (mg/dL) Final Performing Location
--- OUTSIDE RECORDS SUMMARY | 2024-04-14 12:54 | External Medical Summary ---
Author Name Unknown Address Unknown Organization K1F:[facility] - [address] [place] [address] Laboratory Report Ordering Provider Test Date Status REBEKA STILL 03/10/2024 04:10:00 Final Observation Date Value Abnormality Reference (Units ) Status BUN 03/10/2024 04:10:00 28 Above high normal 6-20 (mg/dL) Final Creatinine 03/10/2024 04:10:00 1.1 Above high normal 0.5-1.0 (mg/dL) Final Glomerular filtration rate/1.73 sq M.predicted [Volume Rate/Area] in Serum, Plasma or Blood by Creatinine-based formula (CKD-EPI) 03/10/2024 04:10:00 58 Below low normal >=60 (mL/min) Final eGFR is calculated based on the CKD-EPI 2020 equation Sodium 03/10/2024 04:10:00 145 135-146 (m mol/L) Final Potassium 03/10/2024 04:10:00 3.5 3.5-5.1 (m mol/L) Final Cl 03/10/2024 04:10:00 97 Below low normal 98- 107 (mmol/L) Final CO2 03/10/2024 04:10:00 38 Above high normal 22 -32 (mmol/L) Final Anion gap 03/10/2024 04:10:00 10 7-15 (mmol /L) Final Glucose 03/10/2024 04:10:00 157 Above high normal 70 -120 (mg/dL) Final Calcium 03/10/2024 04:10:00 8.7 8.4-10.2 ( mg/dL) Final Performing Location [facility] - [address] [place] [address]
--- OUTSIDE RECORDS SUMMARY | 2024-04-14 12:54 | External Medical Summary ---
Author Name Unknown Address Unknown Organization K1F:[facility] - [address] [place] [address] Laboratory Report Ordering Provider Test Date Status RUSH GUPTA 03/09/2024 03:25:00 Final Observation Date Value Abnormality Reference (Units ) Status BUN 03/09/2024 03:25:00 23 Above high normal 6-20 (mg/dL) Final Creatinine 03/09/2024 03:25:00 0.8 0.5-1.0 (mg/dL) Final Glomerular filtration rate/1.73 sq M.predicted [Volume Rate/Area] in Serum, Plasma or Blood by Creatinine-based formula (CKD-EPI) 03/09/2024 03:25:00 78 >=60 (mL/min) Final eGFR is calculated based on the CKD-EPI 2020 equation Sodium 03/09/2024 03:25:00 142 135-146 (m mol/L) Final Potassium 03/09/2024 03:25:00 4.4 3.5-5.1 (m mol/L) Final Cl 03/09/2024 03:25:00 102 98-107 (mm ol/L) Final CO2 03/09/2024 03:25:00 30 22-32 (mmo l/L) Final Anion gap 03/09/2024 03:25:00 10 7-15 (mmol /L) Final Glucose 03/09/2024 03:25:00 235 Above high normal 70 -120 (mg/dL) Final Calcium 03/09/2024 03:25:00 9.1 8.4-10.2 ( mg/dL) Final Performing Location [facility]ORY [facility] - [address] [place] [address]
--- OUTSIDE RECORDS SUMMARY | 2024-04-14 12:54 | External Medical Summary ---
Author Name Unknown Address Unknown Organization K1F:LABORATORY [facility] - [address] [place] [address] Laboratory Report Ordering Provider Test Date Status REBEKA STILL 03/10/2024 04:10:00 Final Observation Date Value Abnormality Reference (Units ) Status WBC, Total 03/10/2024 04:10:00 9.86 4.00-10.80 (K/uL) Final RBC 03/10/2024 04:10:00 3.53 3.85-5.15 (M/uL) Final Hemoglobin 03/10/2024 04:10:00 10.1 Below low normal 12.0-15.3 (g/dL) Final HCT 03/10/2024 04:10:00 33.6 Below low normal 36.0-45.2 (%) Final MCV 03/10/2024 04:10:00 95.2 81.5-97.5 (fL) Final MCH 03/10/2024 04:10:00 28.6 27.0-34.0 (pg) Final MCHC 03/10/2024 04:10:00 30.1 32.0-36.0 (g/dL) Final RDW 03/10/2024 04:10:00 15.5 11.5-15.5 (%) Final Platelets 03/10/2024 04:10:00 305 140-400 (K/uL) Final MPV 03/10/2024 04:10:00 9.7 6.6-11.1 (fL) Final Nucleated erythrocytes/100 leukocytes [Ratio] in Blood by Automated count 03/10/2024 04:10:00 0 <=0 (/100 WBCs) Final Performing Location LABORATORY [facility] - [address] [place] [address]
--- OUTSIDE RECORDS SUMMARY | 2024-04-14 12:54 | External Medical Summary ---
Author Name Unknown Address Unknown Organization : Laboratory Report Ordering Provider Test Date Status REBEKA STILL 03/09/2024 16:30:17 Final Observation Date Value Abnormality Reference (Units ) Status Glucose Point of Care 03/09/2024 16:30:17 352 Above high normal 70-120 (mg/dL) Final Performing Location
--- OUTSIDE RECORDS SUMMARY | 2024-04-14 12:54 | External Medical Summary ---
Author Name Unknown Address Unknown Organization : Laboratory Report Ordering Provider Test Date Status REBEKA STILL 03/09/2024 11:12:17 Final Observation Date Value Abnormality Reference (Units ) Status Glucose Point of Care 03/09/2024 11:12:17 222 Above high normal 70-120 (mg/dL) Final Performing Location
--- OUTSIDE RECORDS SUMMARY | 2024-04-14 12:54 | External Medical Summary ---
Author Name Unknown Address Unknown Organization : Laboratory Report Ordering Provider Test Date Status RUSH GUPTA 03/09/2024 02:19:02 Final Observation Date Value Abnormality Reference (Units ) Status Glucose Point of Care 03/09/2024 02:19:02 237 Above high normal 70-120 (mg/dL) Final Performing Location
--- OUTSIDE RECORDS SUMMARY | 2024-04-14 12:54 | External Medical Summary ---
Author Name Unknown Address Unknown Organization : Laboratory Report Ordering Provider Test Date Status RUSH GUPTA 03/09/2024 00:05:50 Final Observation Date Value Abnormality Reference (Units ) Status Glucose Point of Care 03/09/2024 00:05:50 399 Above high normal 70-120 (mg/dL) Final Performing Location
--- OUTSIDE RECORDS SUMMARY | 2024-04-14 12:54 | External Medical Summary ---
Author Name Unknown Address Unknown Organization K1F:LABORATORY [facility] - [address] [place] [address] Laboratory Report Ordering Provider Test Date Status CHRIS BROUSSARD 03/08/2024 12:36:00 Final Warfarin Therapy
INR: 2 .0-3.0 conventional anticoagulation
INR: 2.5- 3.5 high intensity anticoagulation Observation Date Value Abnormality Reference (Units ) Status PT 03/08/2024 12:36:00 12.1 11.6-15.2 (seconds) Final INR 03/08/2024 12:36:00 0.9 0.8-1.2 Final Performing Location LABORATORY [facility] - [address] [place] [address]
--- OUTSIDE RECORDS SUMMARY | 2024-04-14 12:54 | External Medical Summary ---
Author Name Unknown Address Unknown Organization : Laboratory Report Ordering Provider Test Date Status MONET RAINES 03/11/2024 11:20:26 Final Observation Date Value Abnormality Reference (Units ) Status Glucose Point of Care 03/11/2024 11:20:26 295 Above high normal 70-120 (mg/dL) Final Performing Location
--- OUTSIDE RECORDS SUMMARY | 2024-04-14 12:54 | External Medical Summary ---
Author Name Unknown Address Unknown Organization K1F:LABORATORY [facility] - [address] [place] [address] Laboratory Report Ordering Provider Test Date Status RUSH GUPTA 03/09/2024 03:25:00 Final Observation Date Value Abnormality Reference (Units ) Status WBC, Total 03/09/2024 03:25:00 10.00 4.00-10.80 (K/uL) Final RBC 03/09/2024 03:25:00 3.61 3.85-5.15 (M/uL) Final Hemoglobin 03/09/2024 03:25:00 10.3 Below low normal 12.0-15.3 (g/dL) Final HCT 03/09/2024 03:25:00 34.6 Below low normal 36.0-45.2 (%) Final MCV 03/09/2024 03:25:00 95.8 81.5-97.5 (fL) Final MCH 03/09/2024 03:25:00 28.5 27.0-34.0 (pg) Final MCHC 03/09/2024 03:25:00 29.8 32.0-36.0 (g/dL) Final RDW 03/09/2024 03:25:00 15.5 11.5-15.5 (%) Final Platelets 03/09/2024 03:25:00 283 140-400 (K/uL) Final MPV 03/09/2024 03:25:00 9.4 6.6-11.1 (fL) Final Nucleated erythrocytes/100 leukocytes [Ratio] in Blood by Automated count 03/09/2024 03:25:00 0 <=0 (/100 WBCs) Final Performing Location LABORATORY [facility] - [address] [place] [address]
--- OUTSIDE RECORDS SUMMARY | 2024-04-14 12:54 | External Medical Summary ---
Author Name Unknown Address Unknown Organization K1F:[facility] [address] [facility] [place] [address] Laboratory Report Ordering Provider Test Date Status CHIP VELASQUEZ 03/08/2024 19:23:13 Final Observation Date Value Abnormality Reference (Units) Status Body temperature 03/08/2024 19:23:13 37.0 (C) Final pH of Arterial blood 03/08/2024 19:23:13 7.359 7.350-7.450 (units) Final Carbon dioxide [Partial pressure] in Arterial blood 03/08/2024 19:23:13 59.3 Above upper panic limits 35.0-45.0 (mmHg) Final Oxygen [Partial pressure] in Arterial blood 03/08/2024 19:23:13 60.1 Below low normal 75.0-100.0 (mmHg) Final Base excess, Arterial 03/08/2024 19:23:13 6.3 Above high normal -2.0-2.0 (mmol/L) Final Hemoglobin [Mass/volume] in Blood by Oximetry 03/08/2024 19:23:13 10.8 Below low normal 12.0-15.3 (g/dL) Final Oxyhemoglobin, Arterial (FO2HB) 03/08/2024 19:23:13 87.5 Below low normal 94.0-99.0 (% total Hgb) Final Carboxyhemoglobin 03/08/2024 19:23:13 2.9 Above high normal <=1.5 (% total Hgb) Final Smokers: 0-9.0 % Methemoglobin 03/08/2024 19:23:13 0.6 <=1.5 (% total Hgb) Final Deoxyhemoglobin/Hemog lobin.total in Arterial blood 03/08/2024:23:13 9.0 Above high normal 0.0-5.0 (% total Hgb) Final Oxygen content in Arterial blood 03/08/2024 19:23:13 13.3 Below low normal 15.0-24.0 (%vol) Final Oxygen/Total gas setting [Volume Fraction] Ventilator 03/08/2024 19:23:13 Not Provided (%) Final O2 FLOW, [facility] - [facility] 03/08/2024 19:23:13 4 (L/min) Final Bicarbonate, Venous, POC (i-STAT) 03/08/2024 19:23:13 32.6 Above high normal 23.0-31.0 (mmol/L) Final Performing Location LABORATORY [facility] - [address] [place] [address]
--- OUTSIDE RECORDS SUMMARY | 2024-04-14 12:54 | External Medical Summary ---
Author Name Unknown Address Unknown Organization K1F:LABORATORY [facility] - [address] [place] [address] Laboratory Report Ordering Provider Test Date Status DENG DUNCAN 03/08/2024 14:03:00 Final Observation Date Value Abnormality Reference (Units ) Status Troponin T 03/08/2024 14:03:00 49 Above high normal < =14 (ng/L) Final Performing Location LAB[facility]ATORY [facility] - [address] [place] [address]
--- OUTSIDE RECORDS SUMMARY | 2024-04-14 12:54 | External Medical Summary ---
Author Name Unknown Address Unknown Organization K1F:LABORATORY [facility] - [address] [place] [address] Laboratory Report Ordering Provider Test Date Status DENG DUNCAN 03/08/2024 14:03:00 Final Observation Date Value Abnormality Reference (Units ) Status CRP, low-sensitivity 03/08/2024 14:03:00 11 Above high normal <=5 (mg/L) Final Performing Location [facility] - [address] [place] [address]
--- OUTSIDE RECORDS SUMMARY | 2024-04-14 12:54 | External Medical Summary ---
Author Name Unknown Address Unknown Organization : Laboratory Report Ordering Provider Test Date Status MONET RAINES 03/10/2024 11:33:25 Final Observation Date Value Abnormality Reference (Units ) Status Glucose Point of Care 03/10/2024 11:33:25 188 Above high normal 70-120 (mg/dL) Final Performing Location
--- OUTSIDE RECORDS SUMMARY | 2024-04-14 12:54 | External Medical Summary ---
Author Name Unknown Address Unknown Organization : Laboratory Report Ordering Provider Test Date Status REBEKA STILL 03/09/2024 21:13:04 Final Observation Date Value Abnormality Reference (Units ) Status Glucose Point of Care 03/09/2024 21:13:04 225 Above high normal 70-120 (mg/dL) Final Performing Location
--- OUTSIDE RECORDS SUMMARY | 2024-04-14 12:54 | External Medical Summary ---
Author Name Unknown Address Unknown Organization K1F:LAB[facility]ORY [facility] - [address] [place] [address] Laboratory Report Ordering Provider Test Date Status REBEKA STILL 03/11/2024 05:21:00 Final Observation Date Value Abnormality Reference (Units ) Status BUN 03/11/2024 05:21:00 31 Above high normal 6-20 (mg/dL) Final Creatinine 03/11/2024 05:21:00 1.1 Above high normal 0.5-1.0 (mg/dL) Final Glomerular filtration rate/1.73 sq M.predicted [Volume Rate/Area] in Serum, Plasma or Blood by Creatinine-based formula (CKD-EPI) 03/11/2024 05:21:00 57 Below low normal >=60 (mL/min) Final eGFR is calculated based on the CKD-EPI 2020 equation Sodium 03/11/2024 05:21:00 142 135-146 (m mol/L) Final Potassium 03/11/2024 05:21:00 3.9 3.5-5.1 (m mol/L) Final Cl 03/11/2024 05:21:00 96 Below low normal 98- 107 (mmol/L) Final CO2 03/11/2024 05:21:00 32 22-32 (mmo l/L) Final Anion gap 03/11/2024 05:21:00 14 7-15 (mmol /L) Final Glucose 03/11/2024 05:21:00 129 Above high normal 70 -120 (mg/dL) Final Calcium 03/11/2024 05:21:00 8.5 8.4-10.2 ( mg/dL) Final Performing Location [facility] - [address] [place] [address]
--- OUTSIDE RECORDS SUMMARY | 2024-04-14 12:54 | External Medical Summary | Summary of Care ---
Author Name Unknown Organization [facility] Address [address] [place] [address] Phone [phone] Care Team Providers Care Court Administrator Name Role Phone Josafat Marcosananda Caldwell PA-C Primary Care Provide r Reason for Visit * Reason Onset Date Comments Follow Up 02/28/2024 COPD Proven Care Encounter Details Date Type Department Care Team (Late st Contact Info) Description 02/28/2024 Telephone Pulmonary Function Lab, [address] [address] Debra Larsen, HEEL LIFT GOUGER Follow Up (COPD Proven Care ) Allergies Active Allergy Reactions Criticality Noted Date Comments Cortisone Muscle pain Medium 04/09/2017 At site of shot Bee Venom Anaphylaxis High 06/25/2021 Hydrocortisone High 12/25/2021 Other reaction(s): PAIN,UNABLE TO MOVE documented as of this encounter (statuses as of 02/28/2024) Medications Medication Sig Dispensed Refills Start Date [...] MG Oral Tablet (Crestor)Indications :Cor pulmonale, chronic ([facility]),COPD, group D, by GOLD 2017 classification ([facility]),Hypertensive heart and kidney disease with chronic diastolic congestive heart failure and stage 3a chronic kidney disease ([facility]),Dyslipidemia,E ssential hypertension with goal blood pressure less than 140/90 Take by mouth 1 Tablet in the morning. 90 Tablet 3 09/22/2022 Active Empagliflozin 10 MG Oral Tablet (Jardiance)Indicatio ns:Type 2 diabetes mellitus with stage 3a chronic kidney disease, without long-term current use of insulin ([facility]) Take 1 Tablet by mouth in the morning. 30 Tablet 11 11/22/2022 Active metFORMIN HCl 1000 MG Oral Tablet (Glucophage)Indicati ons:Type 2 diabetes mellitus with stage 3a chronic kidney disease, without long-term current use of insulin ([facility]) Take 1 Tablet by mouth 2 times a day with morning and evening meals. 60 Tablet 5 11/22/2022 Active Azelastine HCl 0.1 % Nasal Solution (Astelin) Administer 1 [place] into nostril in the morning and 1 [place] before bedtime. 30 mL 12 01/12/2023 Active Furosemide 80 MG Oral Tablet (Lasix)Indications:G eneralized osteoarthritis,Chron ic diastolic heart failure ([facility]) Take 1 Tablet by mouth in the [...] exacerbation of chronic obstructive pulmonary disease (COPD) ([facility]) Take 1 Capsule by mouth at bedtime. [...] the morning. 90 Tablet 3 01/02/2024 Active predniSONE 20 MG Oral Tablet (Deltasone)Indicatio ns:COPD exacerbation (HCC) Take 3 tabs for 3 days, 2 tabs for 3 days, 1 tab for 3 days, 1/2 tab for 3 days 20 Tablet 0 01/16/2024 Active Additional Information Patient not taking.Reported on 02/13/2024 Nicotine 21 MG/24HR Transdermal Patch 24 Hour (Nicoderm CQ)Indications:COPD exacerbation (HCC),Tobacco use disorder Place 1 Patch over 24 hours topically on the skin in the morning. On upper body/upper arm, change once a day for 6 weeks.. 42 Patch 1 01/18/2024 Active Albuterol Sulfate (2.5 MG/3ML) 0.083% Inhalation Nebulization Solution (Proventil)Indicatio ns:COPD, group D, by GOLD 2017 classification (HCC) Inhale 1 Vial via nebulizer every 4 hours as needed for Wheezing or Shortness of Breath. 180 mL 11 01/31/2024 Active Albuterol Sulfate (2.5 MG/3ML) 0.083% Inhalation Nebulization Solution (Proventil)Indicatio ns:COPD, group D, by GOLD 2017 classification ([facility]) Inhale 1 Vial via nebulizer every 4 hours as needed for Wheezing or Shortness of Breath. 180 mL 11 01/31/2024 Active Additional Information Patient not taking.Reported on 02/18/2024 buPROPion HCl ER (XL) 300 MG Oral Tablet Extended Release 24 Hour (Wellbutrin XL)Indications:MDD (major depressive disorder), recurrent episode, mild (HCC),MARCIE (generalized anxiety disorder),Recurrent major depressive disorder, in partial remission ([facility]) TAKE ONE TABLET BY MOUTH EVERY MORNING 90 Tablet 1 02/18/2024 Active Hospital, Clinic, or Other Facility Administered Medication Ordered Dose Route Frequency Start Date End Date Status Albuterol Sulfate (Proventil) (5 MG/ML) 0.5% *conc* inhalation solution 2.5 mgIndications:COPD, severe ([facility]) 2.5 mg NEBULIZER PRN 10/15/2023 10/14/2024 Active documented as of this encounter (statuses as of 02/28/2024) Active Problems Problem Noted Date Diagnosed Date Chronic anticoagulation 12/19/2023 Acute metabolic encephalopathy 12/19/2023 [...] - TRES o Class D - Inhaled Ogmbfknpyacvhf-OLIV-JXLS Combination Inhaler (Trellegy) o PD-4 Inhibitor (Daliresp) [...] oximeter to monitor SpO2, advised to contact [facility] if <90% and titrate as necessary, Tobacco use disorder 04/21/2021 Last Assessment & Plan: Referral to [employer] for assistance in getting nicoderm patches covered [...] Last Assessment & Plan: Currently followed by animal anatomy teacher--not on any antihistamines currently, has follow up [...] as of this encounter (statuses as of 02/28/2024) Resolved Problems Problem Noted Date Diagnosed Date [...] - TRES o Class D - Inhaled Ywwhhvkbpazved-YJQI-FPQB Combination Inhaler (Ernestollegy) o PD-4 Inhibitor (Daliresp) Self-Management plan o Prednisone 40mg daily for 5 days Rx o High frequency nebulizer treatments every 4-6 hours around the clock Exacerbation plan o Prednisone rescue kit Rescue kit given today. Educated on use. Must call [facility] when initiated so further assessment can be made documented as of this encounter (statuses as of 02/28/2024) Immunizations Name Administration Dates Next Due COVID-19 mRNA, LNP-s, No Pre serve, 2-Dose Series (Moderna) 01/28/2021 Pneumococcal Conjugate Vacci ne, 20-valent (Soijdxb14) 05/10/2022 Pneumococcal Polysaccharide PPV23 (Pneumovax) 11/17/2013 Seasonal [...] Miscellaneous Notes * Telephone Encounter - Debra Larsen CRT - 02/28/2024 1:31 PM EDT 60 day Follow-Up Phone Call Patient Name: Edna Kebede Discharge Date: 02/26/24 Date of Call: 02/28/2024 Time of Call: 1:31 PM Patient successfully contacted? Yes Symptoms/Exposure How is your breathing? Good and bad days - weather related Sputum: Color white Sputum Volume: baseline- continues flutter valve use Shortness of Breath: baseline Cough: baseline Fatigue: baseline Baseline Symptoms: sob with exertion , productive cough Comorbid Conditions: CHF, PHTN, DM, obesity Exposures to irritants (mold, dust, debris, chemicals, pets, etc.): no Smokes: No Second-Hand Smoke Exposure: No Triggers: weather Readmission Screening Readmission within 30 days?: No Vaccine History Follow-Up Next Pulmonary Appointment: 07/23/24- pulmonary ; PFT and walk 07/14/24 Plans to attend Transportation Difficulty: No Followed by or Eligible for: N/A Medicated Therapy Respiratory Medications/Use: Trelegy- rinsing mouth, Albuterol neb, Albuterol MDI , NAC, Azithromycin M, W, F , cetrizine Difficulty Affording Respiratory Medications: No Oxygen Use: 02 @ 4 lpm x 24 hours DME: [employer] - pt has pulse oximeter and monitors saturations - 02sats= 89-90% Noninvasive therapy: sleep test was cx by provider - pt encouraged to call to reschedule Advice given to patient: Pulmonary regimen reviewed with patient. Instructed patient to call the Pulmonary Clinic when starting to notice early onset of COPD flare symptoms. Encouraged staying active. Does patient need additional follow up? Yes, by telephone within 30 days from 02/28/2024 Debra Larsen CRT documented in this encounter Plan of Treatment Upcoming Encounters Date Type Department Care Team (Latest Contact Info) Description 03/05/2024 9:45 AM EDT Office Visit Pratibha Casey [address] [place] [id number] Andrea Mcclendon [place] [id number] 03/17/2024 12:30 PM EDT Appointment RadiologyPratibha Rosanna [place] [address] 03/17/2024 2:00 PM EDT Appointment Radiology, [address] [place] [address] 03/25/2024 9:24 AM EDT Hospital Encounter OR [facility], Operating Room, [facility] - 4th Floor [address] [place] [address] [place] [address] Andrea Mcclendon, [address] [place] [address] 03/25/2024 9:24 AM EDT - 03/25/2024 10:15 AM EDT Surgery OR GL, Operating Room, [facility] - [facility] Floor [address] [place] [address] [place] [address] Andrea Mcclendon, [address] [place] [address] EXTRACAPSULAR CATARACT REMOVAL WITH INTRAOCULAR LENS 03/26/2024 8:00 AM EDT Office Visit [place] [address] Andrea Mcclendon, [address] [place] [address] 04/02/2024 9:15 [place] [address] Andrea Mcclendon, [address] [place] [address] 04/07/2024 8:30 PM EDT PulmDiagnostic Sleep Lab, [address] [address] [facility], Sleep Med Night Sleep [address] [place] [address] 04/25/2024 2:15 PM EDT Office Visit Ophthalmology, [place] [address] [facility] [place] [address] Andrea [facility] [address] [facility] [address] 06/18/2024 7:40 AM EDT Office Visit [facility], Osei [address] [facility] [place] [address] Piper Cazares DO [address] [place] [id number] 07/14/2024 1:00 PM EDT PulmDiagnostic Pulmonary Function Lab, [address] [address] [facility], Pulm Function Room [address] [place] [address] [place] [address] 07/14/2024 2:00 PM EDT PulmDiagnostic Pulmonary Function Lab, [address] [address] [facility], Pulm Function Room [address] [place], [place] [address] [address] 07/23/2024 3:20 PM EDT [facility] [address] [place] [phone] Chance Zimmerman MD [address] [place] [address] Scheduled Procedures Name Priority Associated Diagnoses Date/Ti [...] 12/20/2023, 08/20, 05/22/2023, Additional history exists GFR 06/22/2024 12/23/2023, 01/2024, 12/21/2023, Additional history exists DISCUSS TOBACCO CESSATION (REFER TO SMARTSET #3297) 10/15/2024 10/15/2023, 05/31/2023, 01/12/2023, Additional history exists Diabetic Eye Exam 12/10/2024 12/10/2023, , 12/10/2023, Additional history exists CKD PHOS USE SMARTSET 76800 12/19/202411/21, 09/12/2023, 05/21/2023, Additional history exists CKD HGB USE SMARTSET 50669 12/23/202412/23, 12/22/2023, 12/21/2023, Additional history exists Diabetic Foot Exam 02/12/2025 02/13/2024 O2 ASSESSMENT COMPLETED IN PAST YEAR FOR COPD 02/25/2025 02/26/2024 Lipid Panel 04/19/2027 04/19/2022, 12/21, 01/21/2021, Additional history exists Cervical Cancer Screening Discontinued Pap Smear Discontinued 10/10/2016, 10/21, 11/17/2013, Additional history exists Pneumococcal Vaccine: 65+ Years Completed 05/10/2022, 11/17/2013 LUNG CANCER SCREENING - USE SMARTSET 72188 Completed 09/09/2023, 05/22/2023, 12/15/2022, Additional history exists Influenza Vaccine [...] this encounter Medical Devices Implanted Type Area Spring Salvage Worker Device Identifier Shelf Expiration Date Model / Serial / Lot Lens 20.5 [facility] [id number] - [id number] Implanted:Qty: 1 on 02/26/2024 by Andrea Mcclendon DO at OR [facility] Left: Eye [employer] 08/25/2026 [id number] / [id number] / documented as of this encounter Advance Directives Latest Code Status on File Code Status Date Activated Date Inactivated Comments Full Code 02/26/2024 9:19 AM 02/26/2024 4:21 PM Question Answer Comments Discussion of Advance Directives occurred with: Not Discussed due to patient's condition Code Status History Code Status Date Activated Date Inactivated Comments Limited Code 12/19/2023 4:26 PM 12/23/2023 5:26 PM This o rder reflects the patients wishes and were consensually agreed upon. Question Answer Comments Discussion of Advance Directives occurred with: Patient Does the patient have a Living Will? No Does the patient have Health Care Power of Earthmoving Plant Operator? No Bag Valve Device? Yes Intubation? [...] Advance Directives occurred with: Patient Full Code 09/17/2022 8:03 PM 09/20/2022 3:48 PM This order reflects the patients wishes and were consensually agreed upon. Question Answer Comments Discussion of Advance Directives occurred with: Patient Healthcare Agents on File Name Relationship Healthcare Agent [facility] Martinez GRIGSBY Adult Child First Alternate Health Care Agent Peter Grigsby Adult Child First Alternate Health Care Agent Jazmine Corona Adult Child First Alternate Health Care Agent Care Teams Court Administrator Relationship Specialty Start Date End Date Marcos Maurice PA-C [address] [facility] [place] [id number] PCP - General Physician Material Scheduler 11/22/23 documented as of this encounter
--- OUTSIDE RECORDS SUMMARY | 2024-04-14 12:54 | External Medical Summary ---
Author Name Unknown Address Unknown Organization K1F:[facility] - [address] [place] [address] Laboratory Report Ordering Provider Test Date Status ALONSORUSH 03/09/2024 03:25:00 Final Observation Date Value Abnormality Reference (Units ) Status Phosphate 03/09/2024 03:25:00 3.4 2.5-4.8 (m g/dL) Final Performing Location [facility] - [address] [place] [address]
--- OUTSIDE RECORDS SUMMARY | 2024-04-14 12:54 | External Medical Summary ---
Author Name Unknown Address Unknown Organization K1F:[facility]ORATORY [facility] - [address] [place] [address] Laboratory Report Ordering Provider Test Date Status CHRIS BROUSSARD 03/08/2024 12:36:00 Final Observation Date Value Abnormality Reference (Units ) Status WBC, Total 03/08/2024 12:36:00 8.12 4.00-10.80 (K/uL) Final RBC 03/08/2024 12:36:00 3.56 3.85-5.15 (M/uL) Final Hemoglobin 03/08/2024 12:36:00 10.1 Below low normal 12.0-15.3 (g/dL) Final HCT 03/08/2024 12:36:00 33.9 Below low normal 36.0-45.2 (%) Final MCV 03/08/2024 12:36:00 95.2 81.5-97.5 (fL) Final MCH 03/08/2024 12:36:00 28.4 27.0-34.0 (pg) Final MCHC 03/08/2024 12:36:00 29.8 32.0-36.0 (g/dL) Final RDW 03/08/2024 12:36:00 15.9 11.5-15.5 (%) Final Platelets 03/08/2024 12:36:00 267 140-400 (K/uL) Final MPV 03/08/2024 12:36:00 9.1 6.6-11.1 (fL) Final Nucleated erythrocytes/100 leukocytes [Ratio] in Blood by Automated count 03/08/2024 12:36:00 0 <=0 (/100 WBCs) Final Performing Location LABORATORY [facility] - [address] [place] [address]
--- OUTSIDE RECORDS SUMMARY | 2024-04-14 12:54 | External Medical Summary ---
Author Name Unknown Address Unknown Organization : Laboratory Report Ordering Provider Test Date Status MONET RAINES 03/10/2024 08:06:17 Final Observation Date Value Abnormality Reference (Units ) Status Glucose Point of Care 03/10/2024 08:06:17 156 Above high normal 70-120 (mg/dL) Final Performing Location
--- OUTSIDE RECORDS SUMMARY | 2024-04-14 12:54 | External Medical Summary | Summary of Care ---
Author Name Unknown Organization [facility] Address [address] [place] [address] Phone [phone] Care Team Providers Care Hardware Installation Coordinator Name Role Phone Marcos Maurice PA-C Primary Care Provide r Reason for Visit * Reason Comments Post Op Cataract Surgery * Evaluate & Treat - Unlimited Visits (Within 10 days (routine)) - Authorized Specialty Diagnoses / Procedures Referred By Frantz herrera Referred To Contact Ophthalmology Diagnoses Type 2 diabetes mellitus with stage 3a chronic kidney disease, without long-term current use of insulin ([facility]) Marcos Maurice PA-C [address] [place] [address] Referral ID Status Reason Start Date Expiration Date Visits Requested Visits Authorized [id number] Authorized Specialty Services Required 06/21/2023 12/22/2024 [id number] Encounter Details Date Type Department Care Team (Late st Contact Info) Description 03/05/2024 9:45 AM EDT Office Visit [place]ha [place] [id number] Andrea Mcclendon [place] [id number] After cataract not obscuring vision, left* Allergies Active Allergy Reactions Criticality Noted Date Comments Cortisone Muscle pain Medium 04/09/2017 At site of shot Bee Venom Anaphylaxis High 06/25/2021 Hydrocortisone High 12/25/2021 Other reaction(s): PAIN,UNABLE TO MOVE documented as of this encounter (statuses as of 03/05/2024) Medications Medication Sig Dispensed Refills Start Date End Date Status Acetaminophen 500 MG Oral Tablet (Tylenol) Take 1 Tablet by mouth every 6 hours as needed. 0 Active oxygen IN GASIndications:COPD, group D, by GOLD 2017 classification ([facility]),Chronic hypoxemic respiratory failure ([facility]) 2 LPM at bedtime & at rest & 3 LPM with all exertion via n/c DX J 44.9 1 Each 0 07/31/2022 Active Fluticasone Propionate 50 MCG/ACT Nasal Suspension (Flonase) Administer into each nostril 2 Sprays in the morning. 15.8 mL 2 09/22/2022 Active Rosuvastatin Calcium 20 MG Oral Tablet (Crestor)Indications :Cor pulmonale, chronic ([facility]),COPD, group D, by GOLD 2017 classification ([facility]),Hypertensive heart and kidney disease with chronic diastolic congestive heart failure and stage 3a chronic kidney disease ([facility]),Dyslipidemia,E ssential hypertension with goal blood pressure less than 140/90 Take by mouth 1 Tablet in the morning. 90 Tablet 3 09/22/2022 Active Empagliflozin 10 MG Oral Tablet (Jardiance)Indicatio ns:Type 2 diabetes mellitus with stage 3a chronic kidney disease, without long-term current use of insulin ([facility]) Take 1 Tablet by mouth in the morning. 30 Tablet 11 11/22/2022 Active metFORMIN HCl 1000 MG Oral Tablet (Glucophage)Indicati ons:Type 2 diabetes mellitus with stage 3a chronic kidney disease, without long-term current use of insulin ([facility]) Take 1 Tablet by mouth 2 times a day with morning and evening meals. 60 Tablet 5 11/22/2022 Active Azelastine HCl 0.1 % Nasal Solution (Astelin) Administer 1 Jonancy into nostril in the morning and 1 Jonancy before bedtime. 30 mL 12 01/12/2023 Active Furosemide 80 MG Oral Tablet (Lasix)Indications:G eneralized osteoarthritis,Chron ic diastolic heart failure ([facility]) Take 1 Tablet by mouth [...] 6 05/31/2023 Active Vitamin D3 50 MCG (2000 UT) Oral CapsuleIndications:V itamin D deficiency Take [...] ns:COPD, group D, by GOLD 2017 classification ([facility]) Inhale 1 Vial via nebulizer every 4 hours as needed for Wheezing or Shortness of Breath. 180 mL 11 01/31/2024 Active Albuterol Sulfate (2.5 MG/3ML) 0.083% Inhalation Nebulization Solution (Proventil)Indicatio ns:COPD, group D, by GOLD 2017 classification ([facility]) Inhale 1 Vial via nebulizer [...] 7 days. 10 mL 1 03/05/2024 Active Erythromycin 5 MG/GM Ophthalmic Ointment Instill 0.25 Inches into both eyes at bedtime. 3.5 g 03/05/2024 Active Hospital, Clinic, or Other Facility Administered Medication Ordered Dose Route Frequency Start Date End Date Status Albuterol Sulfate (Proventil) (5 MG/ML) 0.5% *conc* inhalation solution 2.5 mgIndications:COPD, severe (HCC) 2.5 mg NEBULIZER PRN 10/15/2023 10/14/2024 Active documented as of this encounter (statuses as of 03/05/2024) Active Problems Problem Noted Date Diagnosed Date [...] - TRES o Class D - Inhaled Xlhnfdmxyrcmhl-MWCH-CMKH Combination Inhaler (Trellegy) o PD-4 Inhibitor (Daliresp) [...] 04/21/2021 Last Assessment & Plan: Referral to [employer] for assistance in getting nicoderm patches covered [...] Last Assessment & Plan: Currently followed by bulk pallet builder--not on any antihistamines currently, has follow up [...] as of this encounter (statuses as of 03/05/2024) Resolved Problems Problem Noted Date Diagnosed Date [...] - TRES o Class D - Inhaled Olmnfbxmfdhysv-KRGL-VQXV Combination Inhaler (Trellegy) o PD-4 Inhibitor (Daliresp) Self-Management plan o Prednisone 40mg daily for 5 days Rx o High frequency nebulizer treatments every 4-6 hours around the clock Exacerbation plan o Prednisone rescue kit Rescue kit given today. Educated on use. Must call [facility] when initiated so further assessment can be made documented as of this encounter (statuses as of 03/05/2024) Immunizations Name Administration Dates Next Due COVID-19 mRNA, LNP-s, No Pre serve, 2-Dose Series (Moderna) 01/28/2021 Pneumococcal Conjugate Vacci ne, 20-valent ([id number]) 05/10/2022 Pneumococcal Polysaccharide PPV23 (Pneumovax) 11/17/2013 Seasonal [...] No 12/19/2023 documented as of this encounter Progress Notes * Andrea Mcclendon, - 03/05/2024 9:45 AM EDT 03/05/2024 [facility] Ophthalmology Post-operative Clinic Note HPI: Edna Kebede is a 63 year old pt who presents to the eye clinic today for 1 week post-op CEPCIOL OS (Ensor TCC CNA0T0 20.50 02/26/2024) POHx: MINOO T2DM w/o hx of retinopathy VA: 20/30 IOP: 12 mmHg - applanation LL: Normal Conjunctiva: Normal Cornea: CCI and paracentesis cheri negative, PEK AC: 1+ c/f Iris: dilation Lens: PCIOL centered Vitreous: PVD Optic nerve: Normal Macula: RPE changes Vessels: Normal Periphery: No break/tear A/P: 1 week post op CE PCIOL OS (Ensor TCC CNA0T0 20.50 02/26/2024) Stable DFE Taper prednisolone as directed by one drop weekly - left eye only May stop ocuflox D/c eye shield Gradual return to normal activity levels Call with flashes, floaters, dec vision eye pain. Advised of patient account liaison coverage for after hours/weekend emergencies. RTC DOS or sooner prn. Andrea Mcclendon DO 03/05/24 documented in this encounter Nursing Notes * Kate Arriaga COA - 03/05/2024 10:26 AM EDT Edna M Sommernéstor presents for p/o check. 1 week post-op ECCE w/IOL insertion Surgical eye LEFT EYE Patient denies complaints Current Ophthalmic Medications: Pred Forte and Ofloxacin 1gtt 4 times daily in surgical eye Are you taking the drops as directed? Yes documented in this encounter Plan of Treatment Upcoming Encounters Date Type Department Care Team (Latest Contact Info) Description 03/17/2024 12:30 PM EDT Appointment [place] [phone] 03/17/2024 2:00 PM EDT Appointment Radiology, [address] [place] [address] 03/25/2024 9:24 AM EDT Hospital Encounter OR [facility], Operating Room, [facility] - 4th Floor [address] [place] [address] Andrea Mcclendon DO [address] [place] [address] 03/25/2024 9:24 AM EDT - 03/25/2024 10:15 AM EDT Surgery OR [facility], Operating Room, [facility] - 4th Floor [address] [place] [address] Andrea Mcclendon DO [address] [place] [address] EXTRACAPSULAR CATARACT REMOVAL WITH INTRAOCULAR LENS 03/26/2024 8:00 AM EDT Office Visit [place] [place] [address] [place] [address] Andrea Mcclendon, [address] [place] [address] 04/02/2024 9:15 AM EDT Office Visit [place] [place] [address] [place] [address] Andrea Mcclendon, [address] [place] [address] 04/07/2024 8:30 PM EDT PulmDiagnostic Sleep Lab, [facility] [address] [facility] [place] [address] [facility], Sleep Med Night Sleep [address] [place], [place] [address] [address] 04/25/2024 2:15 PM EDT Office Visit [place] [place] [address] [place] [address] Andrea Mcclendon, [address] [place] [address] 06/18/2024 7:40 AM EDT Office Visit [facility], [place] [place] [address] Piper Cazares DO [address] [place] [address] 07/14/2024 1:00 PM EDT PulmDiagnostic Pulmonary Function Lab, [facility] [address] [facility] [place] [address] [facility], Pulm Function Room 1 [address] [facility] [place] [address] 07/14/2024 2:00 PM EDT PulmDiagnostic Pulmonary Function Lab, [facility] [address] [place] [address] Glh, Pulm Function Room 2 [address] [place] [address] 07/23/2024 3:20 PM EDT Office Visit Pulmonary Medicine Pratibha Anguiano [address] [place] [phone] Chance Zimmerman MD [address] [place] [address] Scheduled Procedures Name Priority Associated Diagnoses Date/Ti [...] exists DISCUSS TOBACCO CESSATION (REFER TO SMARTSET #1490) 10/15/2024 10/15/2023, 05/31/2023, 01/12/2023, Additional history exists Diabetic Eye Exam 12/10/2024 12/10/2023, , 12/10/2023, Additional history exists CKD PHOS USE SMARTSET 68906 12/19/202411/21, 09/12/2023, 05/21/2023, Additional history exists CKD HGB USE SMARTSET 53863 12/23/202412/23, 12/22/2023, 12/21/2023, Additional history exists Diabetic [...] this encounter Medical Devices Implanted Type Area Generation Engineering Technologist Device Identifier Shelf Expiration Date Model / Serial / Lot Lens 20.[address] [facility] - [id number] - [id number] Implanted:Qty: 1 on 02/26/2024 by Andrea Mcclendon DO at OR [facility] Left: Eye [employer] 08/25/2026 CNA0T0.205 / [id number] / documented as of this encounter Visit Diagnoses Diagnosis After cataract not obscuring vision, left- Primary Cataract Unspecified cataract documented in this encounter [...] the patient have Health Care Power of Porcelain Waxer? No Bag Valve Device? Yes Intubation? No [...] First Alternate Health Care Agent Care Teams Hardware Installation Coordinator Relationship Specialty Start Date End Date Marcos Maurice PA-C [address] [facility] [place] [address] PCP - General Physician Web Operations Specialist 11/22/23 documented as of this encounter
--- OUTSIDE RECORDS SUMMARY | 2024-04-14 12:54 | External Medical Summary ---
Author Name Unknown Address Unknown Organization : Laboratory Report Ordering Provider Test Date Status RUSH GUPTA 03/08/2024 21:53:52 Final Observation Date Value Abnormality Reference (Units ) Status Glucose Point of Care 03/08/2024 21:53:52 483 Above high normal 70-120 (mg/dL) Final Performing Location
--- OUTSIDE RECORDS SUMMARY | 2024-04-14 12:54 | External Medical Summary ---
Author Name Unknown Address Unknown Organization : Laboratory Report Ordering Provider Test Date Status MONET RAINES 03/10/2024 21:12:23 Final Observation Date Value Abnormality Reference (Units ) Status Glucose Point of Care 03/10/2024 21:12:23 135 Above high normal 70-120 (mg/dL) Final Performing Location
--- OUTSIDE RECORDS SUMMARY | 2024-04-14 12:54 | External Medical Summary ---
Author Name Unknown Address Unknown Organization : Laboratory Report Ordering Provider Test Date Status MONET RAINES 03/08/2024 21:52:58 Final Observation Date Value Abnormality Reference (Units) Status Glucose Point of Care 03/08/2024 21:52:58 >500 Above upper panic limits 70-120 (mg/dL) Final POCT DEVICE COMMENT 03/08/2024 21:52:58 Result Rechecked Final Performing Location
--- OUTSIDE RECORDS SUMMARY | 2024-04-14 12:54 | External Medical Summary ---
Author Name Unknown Address Unknown Organization K1F:[facility] - [address] [place] [address] Laboratory Report Ordering Provider Test Date Status CHRIS BROUSSARD 03/08/2024 12:36:00 Final Exclude Heart Failure: <300 pg/mL
Diagnose Heart Failure:
Age <50 yr: >450 pg/mL
50-75 yr: >900 pg/mL
>75 yr: >1800 pg/mL
GFR is 30-59 mL/min: >1200 pg/mL or Age- adjusted values
GFR <30 mL/min: do not use, not reliable

Prognostic threshold: 1000 pg/mL Observation Date Value Abnormality Reference (Units ) Status BNP, Pro-hormone 03/08/2024 12:36:00 147 <30 0 (pg/mL) Final Performing Location [facility] - [address] [place] [address]
--- OUTSIDE RECORDS SUMMARY | 2024-04-14 12:54 | External Medical Summary ---
Author Name Unknown Address Unknown Organization K1F:LAB[facility]ORY [facility] - [address] [facility] [place] [address] Laboratory Report Ordering Provider Test Date Status CHRIS BROUSSARD 03/08/2024 12:23:28 Final SYMPTOMATIC Observation Date Value Abnormality Reference (Units ) Status Adenovirus DNA [Presence] in Nasopharynx by LANA with non-probe detection 03/08/2024 12:23:28 Negative Negative Final Human coronavirus 229E RNA [Presence] in Nasopharynx by LANA with non-probe detection 03/08/2024 12:23:28 Negative Negative Final Human coronavirus HKU1 RNA [Presence] in Nasopharynx by LANA with non-probe detection 03/08/2024 12:23:28 Negative Negative Final Human coronavirus NL63 RNA [Presence] in Nasopharynx by LANA with non-probe detection 03/08/2024 12:23:28 Negative Negative Final Human coronavirus OC43 RNA [Presence] in Nasopharynx by LANA with non-probe detection 03/08/2024 12:23:28 Negative Negative Final SARS-CoV-2 (COVID-19) RNA [Presence] in Nasopharynx by LANA with non-probe detection 03/08/2024 12:23:28 Negative Negative Final Human metapneumovirus RNA [Presence] in Nasopharynx by LANA with non-probe detection 03/08/2024 12:23:28 Negative Negative Final Rhinovirus+Enterovirus RNA [Presence] in Nasopharynx by LANA with non-probe detection 03/08/2024 12:23:28 Negative Negative Final Influenza virus A RNA [Presence] in Nasopharynx by LANA with non-probe detection 03/08/2024 12:23:28 Negative Negative Final Influenza virus B RNA [Presence] in Nasopharynx by LANA with non-probe detection 03/08/2024 12:23:28 Negative Negative Final Parainfluenza virus 1 RNA [Presence] in Nasopharynx by LANA with non-probe detection 03/08/2024 12:23:28 Negative Negative Final Parainfluenza virus 2 RNA [Presence] in Nasopharynx by LANA with non-probe detection 03/08/2024 12:23:28 Negative Negative Final Parainfluenza virus 3 RNA [Presence] in Nasopharynx by LANA with non-probe detection 03/08/2024 12:23:28 Negative Negative Final Parainfluenza virus 4 RNA [Presence] in Nasopharynx by LANA with non-probe detection 03/08/2024 12:23:28 Negative Negative Final Respiratory syncytial virus RNA [Presence] in Nasopharynx by LANA with non-probe detection 03/08/2024 12:23:28 Negative Negative Final Bordetella pertussis.pertussis toxin promoter region [Presence] in Nasopharynx by LANA with non-probe detection 03/08/2024 12:23:28 Negative Negative Final Chlamydophila pneumoniae DNA [Presence] in Nasopharynx by LANA with non-probe detection 03/08/2024 12:23:28 Negative Negative Final Mycoplasma pneumoniae DNA [Presence] in Nasopharynx by LANA with non-probe detection 03/08/2024 12:23:28 Negative Negative Final Bordetella parapertussis [id number] DNA [Presence] in Nasopharynx by LANA with non-probe detection 03/08/2024 12:23:28 Negative Negative Final
The primers that detect Rhinovirus may cross react with some Enterorviruses. The validation of bronchial specimens, tracheal aspirates, and throats for this assay was developed and performance characteristics determined by [employer]. The validation of alternate specimen types has not been cleared or approved by the U.S. Food and Drug Administration (FDA). It has been determined that such clearance or approval is not necessary. [facility] [address] [facility] [address]
--- OUTSIDE RECORDS SUMMARY | 2024-04-14 12:55 | External Medical Summary | Summary of Care ---
Author Name Unknown Organization [facility] Address [address] [place] [address] Phone [phone] Care Team Providers Care Utility Driver Name Role Phone Marcos Maurice PA-C Primary Care Provide r Encounter Details Date Type Department Care Team (Late st Contact Info) Description 11/22/2023 Telephone Family [facility] [place] Ose[place] Dasilva [address] [place] [address] Marcos Maurice PA-C [address] [place] [address] Allergies Active Allergy Reactions Criticality Noted Date Comments Cortisone Muscle pain Medium 04/09/2017 At site of shot Bee Venom Anaphylaxis High 06/25/2021 Hydrocortisone High 12/25/2021 Other reaction(s): PAIN,UNABLE TO MOVE documented as of this encounter (statuses as of 02/21/2024) Medications Medication Sig Dispensed Refills Start Date End Date Status Acetaminophen 500 MG Oral Tablet (Tylenol) Take 1 Tablet by mouth every 6 hours as needed. 0 Active oxygen IN GASIndications:MATERIAL MOVERS D, group D, by GOLD 2017 classification [...] MG Oral Tablet (Crestor)Indicatio ns:Cor pulmonale, chronic ([facility]),COPD, group D, by GOLD 2017 classification ([facility]),Hypertensive heart and kidney disease with chronic diastolic congestive heart failure and stage 3a chronic kidney disease ([facility]),Dyslipidemia ,Essential hypertension with goal blood pressure less than 140/90 Take by mouth 1 Tablet in the morning. 90 Tablet 3 2 Active Empagliflozin 10 MG Oral Tablet (Jardiance)Indicat ions:Type 2 diabetes mellitus with stage 3a chronic kidney disease, without long-term current use of insulin ([facility]) Take 1 Tablet by mouth in the morning. 30 Tablet 11 3 Active metFORMIN HCl 1000 MG Oral Tablet (Glucophage)Indica tions:Type 2 diabetes mellitus with stage 3a chronic kidney disease, without long-term current use of insulin ([facility]) Take 1 Tablet by mouth 2 times a day with morning and evening meals. 60 Tablet 5 3 Active Azelastine HCl 0.1 % Nasal Solution (Astelin) Administer 1 Garfield into nostril in the morning and 1 Garfield before bedtime. 30 mL 12 3 Active Furosemide 80 MG Oral Tablet (Lasix)Indications :Generalized osteoarthritis,Chr onic diastolic heart failure ([facility]) Take 1 Tablet by mouth [...] 6 3 Active Vitamin D3 50 MCG (1999) Oral CapsuleIndications :Vitamin D deficiency Take 1 Capsule by mouth in the morning. 90 Capsule 1 3 Active Cetirizine HCl 10 MG Oral CapsuleIndications :Viral URI with cough,Acute exacerbation of chronic obstructive pulmonary disease (COPD) ([facility]) Take 1 Capsule by mouth at bedtime. 90 Capsule 3 3 Active Melatonin 3 MG Oral Tablet Take 1 Tablet by mouth at bedtime. 30 Tablet 1 3 Active Albuterol Sulfate HFA 108 (90 Base) MCG/ACT Inhalation Aerosol SolutionIndication s:COPD, severe (HCC) Take 2 puffs every four hours as need for shortness of breath or wheezing 18 g 3 4 Active Roflumilast 500 MCG Oral Tablet (Daliresp) Take by mouth 1 Tablet in the morning. 30 Tablet 5 2 01/02/20 24 Discontinued rOPINIRole HCl 2 MG Oral Tablet (Requip)Indication s:Primary insomnia,Restless legs syndrome Take by mouth 1 Tablet in the morning AND 1 Tablet before bedtime. 60 Tablet 5 2 01/02/20 24 Discontinued(Re fill) traZODone HCl 100 MG Oral Tablet (Desyrel) Take by mouth 1 Tablet before bedtime. 30 Tablet 5 2 01/02/20 24 Discontinued(Re fill) Gabapentin 600 MG Oral Tablet (Neurontin)Indicat ions:Generalized osteoarthritis Take 1 Tablet by mouth in the morning and 1 Tablet before bedtime. 180 Tablet 3 3 12/27/19 24 Discontinued(Re fill) Eliquis 5 MG Oral TabletIndications: Personal history of DVT (deep vein thrombosis) take 1 tablet by mouth every morning and at bedtime 60 Tablet 3 3 01/02/20 24 Discontinued(Re fill) Albuterol Sulfate (2.5 MG/3ML) 0.083% Inhalation Nebulization Solution (Proventil)Indicat ions:COPD, group D, by GOLD 2017 classification ([facility]) Inhale 1 Vial via nebulizer every 4 hours as needed for Wheezing or Shortness of Breath. 180 mL 11 3 01/31/20 24 Discontinued(Re fill) Escitalopram Oxalate 20 MG Oral Tablet (Lexapro)Indicatio ns:MARCIE (generalized anxiety disorder) Take 1 Tablet by mouth in the morning. In the morning.. 90 Tablet 1 3 01/02/20 24 Discontinued(Re fill) buPROPion HCl ER (XL) 300 MG Oral Tablet Extended Release 24 Hour (Wellbutrin XL)Indications:MDD (major depressive disorder), recurrent episode, mild (HCC) Take 1 Tablet by mouth in the morning. 90 Tablet 1 3 02/18/20 24 Discontinued Azithromycin 500 MG Oral Tablet (Zithromax) Take 1 Tablet by mouth once a day on Sunday, Sunday, and Sunday only. 13 Tablet 11 3 01/02/20 24 Discontinued(En d of Procedure) Hospital, Clinic, or Other Facility Administered Medication Ordered Dose Route Frequency Start Date End Date Status Albuterol Sulfate (Proventil) (5 MG/ML) 0.5% *conc* inhalation solution 2.5 mgIndications:COPD , severe (HCC) 2.5 mg NEBULIZER PRN 10/15/2023 10/14/2024 Active Albuterol Sulfate (Proventil) (2.5 MG/3ML) 0.083% inhalation solution 2.5 mgIndications:COPD , severe (HCC) 2.5 mg NEBULIZER PRN 10/15/2023 01/02/2024 Discontinu ed Albuterol Sulfate (Proventil) (2.5 MG/3ML) 0.083% inhalation solution 2.5 mgIndications:COPD , severe (HCC) 2.5 mg NEBULIZER PRN 10/15/2023 01/02/2024 Discontinu ed documented as of this encounter (statuses as of 02/21/2024) Active Problems Problem Noted Date Diagnosed Date [...] - TRES o Class D - Inhaled Qxskvzogzyhwcm-OKCB-[id number] Combination Inhaler (Trellegy) o PD-4 Inhibitor (Daliresp) [...] oximeter to monitor SpO2, advised to contact [facility] if <90% and titrate as necessary, Tobacco use disorder 04/21/2021 Last Assessment & Plan: Referral to [facility] for assistance in getting nicoderm patches covered [...] Last Assessment & Plan: Currently followed by can carrier--not on any antihistamines currently, has follow up [...] as of this encounter (statuses as of 02/21/2024) Resolved Problems Problem Noted Date Diagnosed Date [...] - TRES o Class D - Inhaled Oiocxczfnbhefd-ARDU-MTYU Combination Inhaler (Trellegy) o PD-4 Inhibitor (Daliresp) Self-Management plan o Prednisone 40mg daily for 5 days Rx o High frequency nebulizer treatments every 4-6 hours around the clock Exacerbation plan o Prednisone rescue kit Rescue kit given today. Educated on use. Must call [facility] when initiated so further assessment can be made documented as of this encounter (statuses as of 02/21/2024) Immunizations Name Administration Dates Next Due COVID-19 mRNA, LNP-s, No Pre serve, 2-Dose Series (Moderna) 01/28/2021 Pneumococcal Conjugate Vacci ne, 20-valent ([id number]) 05/10/2022 Pneumococcal Polysaccharide PPV23 (Pneumovax) 11/17/2013 Seasonal [...] Smoking Tobacco: Every Day Cigarettes 1 50 Smokeless Tobacco: Never Comments:01/12/23 currently s moking 2 cig/day 05/31/2023 1 cig/day 09/08 4-5 cigarettes a day Alcohol Use Standard Drinks/Week Comments No 0 [...] you have serious difficulty h earing? No 09/08/2023 Are you blind or do you have serious difficulty seeing, even when wearing glasses? No 09/08/2023 Do you have serious difficul ty walking or climbing stairs? (5 years old or older) Yes 09/08/2023 Do you have difficulty dress ing or bathing? (5 years old or older) No 09/08/2023 Because of a physical, menta l, or emotional condition, do you have difficulty doing errands alone such as visiting a doctor s office or shopping? (15 years old or older) Yes 09/08/20 Cognitive Status Response Date of Assessm ent Because of a physical, menta l, or emotional condition, do you have serious difficulty concentrating, remembering, or making decisions? (5 years old or older) No 09/08/2023 documented as of this encounter Miscellaneous Notes * Telephone Encounter - Tierney Mota OSA - 11/22/2023 1:12 PM EST Called patient to schedule sooner f/u appt with pulm. No answer. LMOM to call back. Schedule patient soonest available per anabell Mauricio documented in this encounter Plan of Treatment Upcoming Encounters Date Type Department Care Team (Latest Contact Info) Description 02/26/2024 11:08 AM EDT Hospital Encounter OR [facility], Operating Room, [facility] - 4th Floor [address] [place] [address] Andrea Mcclendon DO [address] [address] 02/26/2024 11:08 AM EDT - 02/26/2024 11:59 AM EDT Surgery OR [facility], Operating Room, [facility] - 4th Floor [address] [place] [address] Andrea Mcclendon DO [address] [place] [address] LEFT EXTRACAPSULAR CATARACT REMOVAL WITH INTRAOCULAR LENS 02/27/2024 8:00 [place] [address] Andrea Mcclendon DO [address] [address] 03/05/2024 9:45 [place] [address] Andrea Mcclendon DO [address] [address] 03/17/2024 12:30 PM EDT [facility] [address] [place] [address] 03/17/2024 2:00 PM EDT Appointment Radiology, [address] [place] [address] 03/25/2024 9:24 AM EDT Hospital Encounter [facility], Operating Room, [facility]th [facility] [place] [address] Andrea Mcclendon, [address] [address] [address] 03/25/2024 9:24 AM EDT - 03/25/2024 10:15 AM EDT Surgery OR [facility], Operating Room, [facility] - 4th Floor [address] [place] [address] Andrea Mcclendon, [address] [address] RIGHT EXTRACAPSULAR CATARACT REMOVAL WITH INTRAOCULAR LENS 03/26/2024 8:00 AM EDT Office Visit [place] [address] [place] [address] Andrea Mcclendon DO [address] [place] [address] 04/02/2024 9:15 AM EDT Office Visit [place] [address] [address] [address] Andrea Mcclendon DO [address] [address] 04/07/2024 8:30 PM EDT [facility]ostic Sleep Lab, [address] [address] [facility], Sleep Med Night Sleep [address] [place] [address] [place] [address] 04/25/2024 2:15 PM EDT Office Visit Ophthalmology, [place] [address] [address] Andrea Mcclendon DO [address] [address] 06/18/2024 7:40 AM EDT Office Visit [facility], [address] [place] [address] Piper Cazares DO [address] [place] [address] 07/14/2024 1:00 PM EDT PulmDiagnostic Pulmonary Function Lab, [address] [place] [address] [facility], Pulm Function Room 1 [address] [facility] [place] [address] 07/14/2024 2:00 PM EDT [facility]mDiagnostic Pul[facility] Function [facility], [address] [place] [address] [facility], Pulm Function Room [address] [place], [place] [address] [address] 07/23/2024 3:20 PM EDT Office Visit Pulmonary Medicine Pratibha Anguiano [address] [place] [id number] Chance Zimmerman MD [address] [place] [address] Scheduled Procedures Name Priority Associated Diagnoses Date/Ti me EXTRACAPSULAR CATARACT REMOV AL WITH INTRAOCULAR LENS Cataract 02/26/2024 11:08 AM EDT EXTRACAPSULAR CATARACT REMOV AL WITH INTRAOCULAR LENS Cataract 03/25/2024 9:24 AM EDT Health Maintenance Due Date Last Done Comments Alpha-1 Antitrypsin 1976 Cologuard 2003 Sigmoidoscopy 2003 Zoster Vaccines (1 of 2) 2008 Fecal Occult Blood Test 11/17/2014 11/17/2013 Mammogram 11/27/2018 11/27/2017, 12/0 04/2016, 12/05/2013 Colonoscopy 09/20/2020 09/20/2010 Colorectal Cancer Screening 09/20/2020 *ADVANCE DIRECTIVE NOT ON FILE 04/29/2022 Albumin/Creatinine Ratio 02/03/2023 02/03/2022, 06/19 Depression Screening 02/20/2023 02/20/2022 COVID-19 Vaccine (2 - season) 2023 01/28/2021 DXA Scan 2023 DTaP,Tdap,and Td Vaccines (2 - Td or Tdap) 11/17/2023 11/17/2013 HbA1c 06/19/2024 12/20/2023, 08/20, 05/22/2023, Additional history exists GFR 06/22/2024 12/23/2023, 01/2024, 12/21/2023, Additional history exists DISCUSS TOBACCO CESSATION (REFER TO SMARTSET #5580) 10/15/2024 10/15/2023, 05/31/2023, 01/12/2023, Additional history exists Diabetic Eye Exam 12/10/2024 12/10/2023, , 12/10/2023, Additional history exists CKD PHOS USE SMARTSET 10790 12/19/202411/21, 09/12/2023, 05/21/2023, Additional history exists CKD HGB USE SMARTSET 88817 12/23/202412/23, 12/22/2023, 12/21/2023, Additional history exists Diabetic Foot Exam 02/12/2025 02/13/2024 O2 ASSESSMENT COMPLETED IN PAST YEAR FOR COPD 02/12/2025 02/13/2024 Lipid Panel 04/19/2027 04/19/2022, 12/21, 01/21/2021, Additional history exists Cervical Cancer Screening Discontinued Pap Smear Discontinued 10/10/2016, 10/21, 11/17/2013, Additional history exists Pneumococcal Vaccine: 65+ Years Completed 05/10/2022, 11/17/2013 LUNG CANCER SCREENING - USE SMARTSET 47658 Completed 09/09/2023, 05/22/2023, 12/15/2022, Additional history exists [...] documented as of this encounter Medical Devices Not on filedocumented as of this encounter Additional Health Concerns Infection Onset Date Last Indicated Resolved Time Respiratory Rule-Out 12/19/2023 12/19/2023 024 2:41 PM EST COVID-19 Rule-Out 12/19/2023 12/19/2023 12/19/2023 2:41 PM EST documented as of this encounter Advance Directives [...] the patient have Health Care Power of Senior Business Broker? No Bag Valve Device? Yes Intubation? No Cardiac Compressions? Yes Defibrillation? Yes Synchronized Cardioversion? Yes External Pacemaker? Yes Cardiac Drugs? Yes Code Status History Code Status Date Activated Date Inactivated Comments Full Code 09/08/2023 4:44 PM 09/13/2023 8:48 [...] Advance Directives occurred with: Patient Full Code 07/26/2022 11:55 AM 07/31/2022 7:28 PM This order reflects the patients wishes and were consensually agreed upon. Question Answer Comments Discussion of Advance Directives occurred with: Patient Healthcare Agents on File Name Relationship Healthcare Agent [facility] Martinez GRIGSBY Adult Child First Alternate Health Care Agent Peter Seb Adult Child First Alternate Health Care Agent Jazmine Corona Adult Child First Alternate Health Care Agent Care Teams Utility Driver Relationship Specialty Start Date End Date Marcos Maurice PA-C [address] [facility] [place] [phone] PCP - General Physician Crop Specialist 11/22/23 documented as of this encounter
--- OUTSIDE RECORDS SUMMARY | 2024-04-14 12:55 | External Medical Summary | Summary of Care ---
Author Name Unknown Organization [facility] Address [address] [place] [address] Phone [phone] Care Team Providers Care Supervisor Fusing Room Name Role Phone Marcos Maurice PA-C Primary Care Provide r Reason for Visit * Reason Onset Date Comments Appointment 02/14/2024 Home Nursing Encounter Details Date Type Department Care Team (Late st Contact Info) Description 02/14[facility] [address] [facility] [place] [address] Marcos Maurice PA-C [address] [facility] [place] [address] Appointment (Home Nursing) Allergies Active Allergy Reactions Criticality Noted Date Comments Cortisone Muscle pain Medium 04/09/2017 At site of shot Bee Venom Anaphylaxis High 06/25/2021 Hydrocortisone High 12/25/2021 Other reaction(s): PAIN,UNABLE TO MOVE documented as of this encounter (statuses as of 02/15/2024) Medications Medication Sig Dispensed Refills Start Date [...] (HCC),COPD, group D, by GOLD 2017 classification ([facility]),Hypertensive heart and kidney disease with chronic diastolic congestive heart failure and stage 3a chronic kidney disease ([facility]),Dyslipidemia,E ssential hypertension with goal blood pressure less than 140/90 Take by mouth 1 Tablet in the morning. 90 Tablet 3 09/22/2022 Active Empagliflozin 10 MG Oral Tablet (Jardiance)Indicatio ns:Type 2 diabetes mellitus with stage 3a chronic kidney disease, without long-term current use of insulin ([facility]) Take 1 Tablet by mouth in the morning. 30 Tablet 11 11/22/2022 Active metFORMIN HCl 1000 MG Oral Tablet (Glucophage)Indicati ons:Type 2 diabetes mellitus with stage 3a chronic kidney disease, without long-term current use of insulin ([facility]) Take 1 Tablet by mouth 2 times a day with morning and evening meals. 60 Tablet 5 11/22/2022 Active Azelastine HCl 0.1 % Nasal Solution (Astelin) Administer 1 [place] into nostril in the morning and 1 [place] before bedtime. 30 mL 12 01/12/2023 Active [...] at bedtime. 30 Tablet 1 09/17/2023 Active buPROPion HCl ER (XL) 300 MG Oral Tablet Extended Release 24 Hour (Wellbutrin XL)Indications:MDD (major depressive disorder), recurrent episode, mild (HCC) Take 1 Tablet by mouth in the morning. 90 Tablet 1 09/21/2023 Active Albuterol Sulfate HFA 108 (90 Base) [...] D, by GOLD 2017 classification ([facility]) Inhale 1 Vial via nebulizer every 4 hours as needed for Wheezing or Shortness of Breath. 180 mL 11 01/31/2024 Active Albuterol Sulfate (2.5 MG/3ML) 0.083% Inhalation Nebulization Solution (Proventil)Indicatio ns:COPD, group D, by GOLD 2017 classification ([facility]) Inhale 1 Vial via nebulizer every 4 hours as needed for Wheezing or Shortness of Breath. 180 mL 11 01/31/2024 Active Hospital, Clinic, or Other Facility Administered Medication Ordered Dose Route Frequency Start Date End Date Status Albuterol Sulfate (Proventil) (5 MG/ML) 0.5% *conc* inhalation solution 2.5 mgIndications:COPD, severe (HCC) 2.5 mg NEBULIZER PRN 10/15/2023 10/14/2024 Active documented as of this encounter (statuses as of 02/15/2024) Active Problems Problem Noted Date Diagnosed Date [...] - TRES o Class D - Inhaled Nziuwrsdgrycwb-BIOS-ZBLI Combination Inhaler (Trellegy) o PD-4 Inhibitor (Daliresp) [...] oximeter to monitor SpO2, advised to contact [facility] if <90% and titrate as necessary, Tobacco use disorder 04/21/2021 Last Assessment & Plan: Referral to [employer] for assistance in getting nicoderm patches covered [...] Last Assessment & Plan: Currently followed by finger grip machine operator--not on any antihistamines currently, has [...] as of this encounter (statuses as of 02/15/2024) Resolved Problems Problem Noted Date Diagnosed Date [...] - TRES o Class D - Inhaled Niosdirljyunoe-FGWP-NWSC Combination Inhaler (Trellegy) o PD-4 Inhibitor (Daliresp) Self-Management plan o Prednisone 40mg daily for 5 days Rx o High frequency nebulizer treatments every 4-6 hours around the clock Exacerbation plan o Prednisone rescue kit Rescue kit given today. Educated on use. Must call [facility] when initiated so further assessment can be made documented as of this encounter (statuses as of 02/15/2024) Immunizations Name Administration Dates Next Due COVID-19 mRNA, LNP-s, No Pre serve, 2-Dose Series (Moderna) 01/28/2021 Pneumococcal Conjugate Vacci ne, 20-valent ([id number]) 05/10/2022 Pneumococcal Polysaccharide PPV23 (Pneumovax) 11/17/2013 Seasonal [...] encounter Miscellaneous Notes * Telephone Encounter - Gladis Tellez OSA - 02/15/2024 9:26 AM EDT Home Nursing referral faxed to [facility]. They will contact pt directly. * Telephone Encounter - Therese Connolly OSA - 02/15/2024 9:21 AM EDT Anabel calling from [facility] to advise that they are unable to accept this home health referral as pt resides outside of their service area. * Telephone Encounter - Gladis Tellez OSA - 02/15/2024 9:00 AM EDT Home Nursing referral/info faxed to [facility]. They will contact pt directly with appt. * Telephone Encounter - Gladis Tellez OSA - 02/14/2024 12:32 PM EDT Pt seen MANUEL Ye yesterday and home nursing referral placed today. Awaiting last office note to be dictated and will fax to home nursing. documented in this encounter Plan of Treatment Upcoming Encounters Date Type Department Care Team (Latest Contact Info) Description 02/26/2024 1:41 PM EDT Hospital Encounter OR [facility], Operating Room, [facility] - 4th Floor [address] [place] [address] Andrea Mcclendon DO 21 [facility] [place] [address] 02/26/2024 1:41 PM EDT - 02/26/2024 2:32 PM EDT Surgery OR [facility], Operating Room, [facility] - 4th Floor [address] [place] [address] Andrea Mcclendon, DO [address] [place] [address] LEFT EXTRACAPSULAR CATARACT REMOVAL WITH INTRAOCULAR LENS 02/27/2024 8:00 AM EDT Office Visit [facility] [address] [place] [address] Andrea Mcclendon, [address] [place] [address] 03/05/2024 9:45 AM EDT Office Visit [facility] [address] [place] [address] Andrea Mcclendon, [address] [place] [address] 03/17/2024 12:30 PM EDT Appointment [facility] Rosanna [address] [place] [address] 03/17/2024 2:00 PM EDT Appointment RadiologyFelibertoBrodie[address] [place] [address] 03/25/2024 9:24 AM EDT Hospital Encounter OR [facility], Operating Room, [facility] - 4th Floor [address] [place] [address] [place] [address] Andrea Mcclendon, [address] [place] [address] 03/25/2024 9:24 AM EDT - 03/25/2024 10:15 AM EDT Surgery OR [facility], Operating Room, [facility] - 4th Floor [address] [place] [address] Andrea Mcclendon, [address] [place] [address] RIGHT EXTRACAPSULAR CATARACT REMOVAL WITH INTRAOCULAR LENS 03/26/2024 8:00 AM EDT Office Visit [place] [address] [place] [address] Andrea Mcclendon, [address] [address] 04/02/2024 9:15 AM EDT Office Visit [place] [address] [place] [address] Andrea Mcclendon, [address] [place] [address] 04/07/2024 8:30 PM EDT PulmDiagnostic Sleep Lab, [facility] [address] [facility] [place] [address] [facility], Sleep Med Night Sleep [address] [place], [place] [address] [address] 04/25/2024 2:15 PM EDT Office Visit [place] [address] [place] [address] Andrea Mcclendon, [address] [facility] [place] [address] 06/18/2024 7:40 AM EDT Office Visit [facility] [address], Ose[place] [address] [place] [address] Piper Cazares DO [address] [place] [address] 07/14/2024 1:00 PM EDT PulmDiagnostic Pulmonary Function Lab, [facility] 400 [facility] [place] [address] [facility], Pulm Function Room 1 [facility] [address] 07/14/2024 2:00 PM EDT PulmDiagnostic Pulmonary Function Lab, [facility] [address] [place] [address] Gl, Pulm Function Room 2 [address] [place] [address] 07/23/2024 3:20 PM EDT Office Visit Pulmonary Medicine Pratibha Anguiano [address] [place] [phone] Chance Zimmerman MD [address] [place] [address] Scheduled Procedures Name Priority Associated Diagnoses Date/Ti me EXTRACAPSULAR CATARACT REMOV AL WITH INTRAOCULAR LENS Cataract 02/26/2024 1:41 PM EDT EXTRACAPSULAR CATARACT REMOV AL WITH INTRAOCULAR [...] Screening 02/20/2023 02/20/2022 COVID-19 Vaccine (2 - 2022-24 season) 2023 01/28/2021 DXA Scan 2023 DTaP,Tdap,and Td Vaccines (2 - Td or Tdap) 11/17/2023 11/17/2013 HbA1c 06/19/2024 12/20/2023, 1012/2022, 05/22/2023, Additional history exists GFR 06/22/2024 12/23/2023, 01/2024, 12/21/2023, Additional history exists DISCUSS TOBACCO CESSATION (REFER TO SMARTSET #3291) 10/15/2024 10/15/2023, 05/31/2023, 01/12/2023, Additional history exists Diabetic Eye Exam 12/10/2024 12/10/2023, , 12/10/2023, Additional history exists CKD PHOS USE SMARTSET 99290 12/19/202411/21, 09/12/2023, 05/21/2023, Additional history exists CKD HGB USE SMARTSET 88071 12/23/202412/23, 12/22/2023, 12/21/2023, Additional history exists Diabetic Foot Exam 02/12/2025 02/13/2024 O2 ASSESSMENT COMPLETED IN PAST YEAR FOR COPD 02/12/2025 02/13/2024 Lipid Panel 04/19/2027 04/19/2022, 12/21, 01/21/2021, Additional history exists Cervical Cancer Screening Discontinued Pap Smear Discontinued 10/10/2016, 10/21, 11/17/2013, Additional history exists Pneumococcal Vaccine: 65+ Years Completed 05/10/2022, 11/17/2013 LUNG CANCER SCREENING - USE SMARTSET 04979 Completed 09/09/2023, 05/22/2023, 12/15/2022, Additional history exists [...] Not on filedocumented as of this encounter Advance Directives Latest [...] the patient have Health Care Power of Mushroom Cutter? No Bag Valve Device? Yes Intubation? No [...] First Alternate Health Care Agent Care Teams Supervisor Fusing Room Relationship Specialty Start Date End Date Marcos Maurice PA-C [address] [facility] [place] [address] PCP - General Physician Retoucher 11/22/23 documented as of this encounter
--- OUTSIDE RECORDS SUMMARY | 2024-04-14 12:55 | External Medical Summary | Summary of Care ---
Author Name Unknown Organization [facility] Address [address] [place] [address] Phone [phone] Care Team Providers Care Bus Cleaner Name Role Phone Marcos Maurice PA-C Primary Care Provide r Encounter Details Date Type Department Care Team (Late st Contact Info) Description 02/16/2024 Orders Only PATIENT PORTAL DO NOT DELETE THIS DEPT USED BY [place] [id number] Allergies Active Allergy Reactions Criticality Noted Date Comments Cortisone Muscle pain Medium 04/09/2017 At site of shot Bee Venom Anaphylaxis High 06/25/2021 Hydrocortisone High 12/25/2021 Other reaction(s): PAIN,UNABLE TO MOVE documented as of this encounter (statuses as of 02/16/2024) Medications Medication Sig Dispensed Refills Start Date [...] (HCC),COPD, group D, by GOLD 2017 classification ([facility]),Hypertensive heart and kidney disease with chronic diastolic congestive heart failure and stage 3a chronic kidney disease ([facility]),Dyslipidemia,E ssential hypertension with goal blood pressure less than 140/90 Take by mouth 1 Tablet in the morning. 90 Tablet 3 09/22/2022 Active Empagliflozin 10 MG Oral Tablet (Jardiance)Indicatio ns:Type 2 diabetes mellitus with stage 3a chronic kidney disease, without long-term current use of insulin ([facility]) Take 1 Tablet by mouth in the morning. 30 Tablet 11 11/22/2022 Active metFORMIN HCl 1000 MG Oral Tablet (Glucophage)Indicati ons:Type 2 diabetes mellitus with stage 3a chronic kidney disease, without long-term current use of insulin ([facility]) Take 1 Tablet by mouth 2 times a day with morning and evening meals. 60 Tablet 5 11/22/2022 Active Azelastine HCl 0.1 % Nasal Solution (Astelin) Administer 1 [place] into nostril in the morning and 1 [place] before bedtime. 30 mL 12 01/12/2023 Active Furosemide 80 MG Oral Tablet (Lasix)Indications:G eneralized osteoarthritis,Chron ic diastolic heart failure ([facility]) Take 1 Tablet by mouth in the [...] exacerbation of chronic obstructive pulmonary disease (COPD) ([facility]) Take 1 Capsule by mouth at bedtime. [...] every morning and at bedtime 60 Tablet 01/02/2024 Active rOPINIRole HCl 2 MG Oral [...] D, by GOLD 2017 classification ([facility]) Inhale 1 Vial via nebulizer every 4 [...] as of this encounter (statuses as of 02/16/2024) Active Problems Problem Noted Date Diagnosed Date [...] - TRES o Class D - Inhaled Rxzqowzkraewxm-DPMW-EYTC Combination Inhaler (Trellegy) o PD-4 Inhibitor (Daliresp) [...] oximeter to monitor SpO2, advised to contact [facility] if <90% and titrate as necessary, Tobacco use disorder 04/21/2021 Last Assessment & Plan: Referral to [employer] for assistance in getting nicoderm patches covered [...] Last Assessment & Plan: Currently followed by registered radiologic technologist--not on any antihistamines currently, has follow up [...] as of this encounter (statuses as of 02/16/2024) Resolved Problems Problem Noted Date Diagnosed Date [...] - TRES o Class D - Inhaled Eabgafazefzgir-VDHU-PXAQ Combination Inhaler (Trellegy) o PD-4 Inhibitor (Daliresp) Self-Management plan o Prednisone 40mg daily for 5 days Rx o High frequency nebulizer treatments every 4-6 hours around the clock Exacerbation plan o Prednisone rescue kit Rescue kit given today. Educated on use. Must call [facility] when initiated so further assessment can be made documented as of this encounter (statuses as of 02/16/2024) Immunizations Name Administration Dates Next Due COVID-19 mRNA, LNP-s, No Pre serve, 2-Dose Series (Moderna) 01/28/2021 Pneumococcal Conjugate Vacci ne, 20-valent ([id number]) 05/10/2022 Pneumococcal Polysaccharide PPV23 (Pneumovax) 11/17/2013 Seasonal [...] 02/26/2024 1:41 PM EDT Hospital Encounter OR [facility], Operating Room, [facility] - 4th Floor [address] [place] [address] Andrea Mcclendon, DO [address] [place] [address] 02/26/2024 1:41 PM EDT - 02/26/2024 2:32 PM EDT Surgery OR [facility], Operating Room, [address] [place] [address] Andrea Mcclendon, DO [address] [place] [address] LEFT EXTRACAPSULAR CATARACT REMOVAL WITH INTRAOCULAR LENS 02/27/2024 8:00 AM EDT Office Visit Pratibha Casey [address] [place] [address] Andrea Mcclendon, [address] [place] [address] 03/05/2024 9:45 AM EDT Office Visit OphthalmologyPratibha [address] [place] [address] Andrea Mcclendon DO [address] [place] [address] 03/17/2024 12:30 PM EDT Appointment Pratibha Guillen [place] [address] 03/17/2024 2:00 PM EDT Appointment RadiologyFelibertoBear[address] [place] [address] 03/25/2024 9:24 AM EDT Hospital Encounter OR [facility], Operating Room, [facility] - [address] [place] [address] [place] [address] Andrea Mcclendon DO [address] [place] [address] 03/25/2024 9:24 AM EDT - 03/25/2024 10:15 AM EDT Surgery OR [facility], Operating Room, [facility] - [facility] Floor [address] [place] [address] Andrea Mcclendon, DO [address] [place] [address] RIGHT EXTRACAPSULAR CATARACT REMOVAL WITH INTRAOCULAR LENS 03/26/2024 8:00 AM EDT Office Visit [place] [address] [place] [address] Andrea Mcclendon, [address] [place] [address] 04/02/2024 9:15 AM EDT Office Visit [place] [address] [place] [address] Andrea Mcclendon, [address] [place] [address] 04/07/2024 8:30 PM EDT PulmDiagnostic Sleep Lab, [facility] [address] [place] [address] [facility], Sleep Med [facility] Sleep 400 [facility] [place] [address] 04/25/2024 2:15 PM EDT Office Visit [place] [address] [place] [address] Andrea Mcclendon, 21 [facility] [address] [place] [address] 06/18/2024 7:40 AM EDT Office Visit [facility] [address], [place] [place] [address] Piper Cazares DO [address] [place] [address] 07/14/2024 1:00 PM EDT PulmDiagnostic Pulmonary Function Lab, [facility] [address] [facility] [place] [address] Gl, Pulm Function Room 1 400 [facility] [address] 07/14/2024 2:00 PM EDT PulmDiagnostic Pulmonary Function Lab, [facility] 400 [facility] [place] [address] Gl, Pul Function Room 2 400 [facility] [address] 07/23/2024 3:20 PM EDT Office Visit Pulmonary Medicine [place] [address] [address] [phone] Chance Zimmerman MD [address] [place] [address] [address] Scheduled Procedures Name Priority Associated Diagnoses Date/Ti [...] Additional history exists CKD PHOS USE SMARTSET 42637 12/19/202411/21, 09/12/2023, 05/21/2023, Additional history exists CKD HGB USE SMARTSET 65148 12/23/202412/23, 12/22/2023, 12/21/2023, Additional history exists Diabetic Foot Exam 02/12/2025 02/13/2024 O2 ASSESSMENT COMPLETED IN PAST YEAR FOR COPD 02/12/2025 02/13/2024 Lipid Panel 04/19/2027 04/19/2022, 12/21, 01/21/2021, Additional history exists Cervical Cancer Screening Discontinued Pap Smear Discontinued 10/10/2016, 10/21, 11/17/2013, Additional history exists Pneumococcal Vaccine: 65+ Years Completed 05/10/2022, 11/17/2013 LUNG CANCER SCREENING - USE SMARTSET 67554 Completed 09/09/2023, 05/22/2023, 12/15/2022, Additional history exists [...] the patient have Health Care Power of Inside Account Representative? No Bag Valve Device? Yes Intubation? No [...] First Alternate Health Care Agent Care Teams Bus Cleaner Relationship Specialty Start Date End Date Marcos Maurice PA-C [address] [facility] [place] [address] PCP - General Physician Front Office Coordinator 11/22/23 documented as of this encounter
--- OUTSIDE RECORDS SUMMARY | 2024-04-14 12:55 | External Medical Summary | Summary of Care ---
Author Name Unknown Organization [facility] Address [address] [place] [address] Phone [phone] Care Team Providers Care Tipple Tender Name Role Phone Marcos Gamble PA-C Primary Care Provide r Reason for Visit * Reason Comments eRx-Medication Refill Encounter Details Date Type Department Care Team (Late st Contact Info) Description [facility] [address] [place] [address] Marcos Gamble PA-C [address] [facility] [place] [address] MDD (major depressive disorder), recurrent episode, mild (HCC)*; MARCIE (generalized anxiety disorder); Recurrent major depressive disorder, in partial remission (HCC) Allergies Active Allergy Reactions Criticality Noted Date Comments Cortisone Muscle pain Medium 04/09/2017 At site of shot Bee Venom Anaphylaxis High 06/25/2021 Hydrocortisone High 12/25/2021 Other reaction(s): PAIN,UNABLE TO MOVE documented as of this encounter (statuses as of 02/18/2024) Medications Medication Sig Dispensed Refills Start Date End Date Status Acetaminophen 500 MG Oral Tablet (Tylenol) Take 1 Tablet by mouth every 6 hours as needed. 0 Active oxygen IN GASIndications:COPD , group D, by GOLD 2017 classification (HCC),Chronic [...] MG Oral Tablet (Crestor)Indication s:Cor pulmonale, chronic (HCC),COPD, group D, by GOLD 2017 classification ([facility]),Hypertensive heart and kidney disease with chronic diastolic congestive heart failure and stage 3a chronic kidney disease ([facility]),Dyslipidemia, Essential hypertension with goal blood pressure less than 140/90 Take by mouth 1 Tablet in the morning. 90 Tablet 3 2 Active Empagliflozin 10 MG Oral Tablet (Jardiance)Indicati ons:Type 2 diabetes mellitus with stage 3a chronic kidney disease, without long-term current use of insulin ([facility]) Take 1 Tablet by mouth in the morning. 30 Tablet 11 3 Active metFORMIN HCl 1000 MG Oral Tablet (Glucophage)Indicat ions:Type 2 diabetes mellitus with stage 3a chronic kidney disease, without long-term current use of insulin ([facility]) Take 1 Tablet by mouth 2 times a day with morning and evening meals. 60 Tablet 5 3 Active Azelastine HCl 0.1 % Nasal Solution (Astelin) Administer 1 [place] into nostril in the morning and 1 [place] before bedtime. 30 mL 12 3 Active Furosemide 80 MG Oral Tablet (Lasix)Indications: Generalized osteoarthritis,Histology Assistant kunal diastolic heart failure (HCC) Take 1 [...] the morning. 90 Tablet 3 4 Active predniSONE 20 MG Oral Tablet (Deltasone)Indicati ons:COPD exacerbation (HCC) Take 3 tabs for 3 days, 2 tabs for 3 days, 1 tab for 3 days, 1/2 tab for 3 days 20 Tablet 0 4 Active Additional Information Patient not taking.Reported on [...] ons:COPD, group D, by GOLD 2017 classification ([facility]) Inhale 1 Vial via nebulizer every 4 hours as needed for Wheezing or Shortness of Breath. 180 mL 11 4 Active Albuterol Sulfate (2.5 MG/3ML) 0.083% Inhalation Nebulization Solution (Proventil)Indicati ons:COPD, group D, by GOLD 2017 classification ([facility]) Inhale 1 Vial via nebulizer every 4 hours as needed for Wheezing or Shortness of Breath. 180 mL 11 4 Active Additional Information Patient not taking.Reported on 02/18/2024 buPROPion HCl ER (XL) 300 MG Oral Tablet Extended Release 24 Hour (Wellbutrin XL)Indications:MDD (major depressive disorder), recurrent episode, mild (HCC),MARCIE (generalized anxiety disorder),Recurrent major depressive disorder, in partial remission (HCC) TAKE ONE TABLET BY MOUTH EVERY MORNING 90 Tablet 1 4 Active buPROPion HCl ER (XL) 300 MG Oral Tablet Extended Release 24 Hour (Wellbutrin XL)Indications:MDD (major depressive disorder), recurrent episode, mild (HCC) Take 1 Tablet by mouth in the morning. 90 Tablet 1 3 02/18/20 24 Discontinued Hospital, Clinic, or Other Facility Administered Medication Ordered Dose Route Frequency Start Date End Date Status Albuterol Sulfate (Proventil) (5 MG/ML) 0.5% *conc* inhalation solution 2.5 mgIndications:COPD, severe (HCC) 2.5 mg NEBULIZER PRN 10/15/2023 10/14/2024 Active documented as of this encounter (statuses as of 02/18/2024) Active Problems Problem Noted Date Diagnosed Date [...] - TRES o Class D - Inhaled Wqvozzdjcuedqe-UYXH-AJVS Combination Inhaler (Trellegy) o PD-4 Inhibitor (Daliresp) [...] oximeter to monitor SpO2, advised to contact [facility] if <90% and titrate as necessary, Tobacco use disorder 04/21/2021 Last Assessment & Plan: Referral to [facility] for assistance in getting nicoderm patches covered [...] Assessment & Plan: Currently followed by business process associate--not on any antihistamines currently, has follow up [...] as of this encounter (statuses as of 02/18/2024) Resolved Problems Problem Noted Date Diagnosed Date [...] Microhematuria 06/14/2016 10/19/2016 RUQ abdominal pain 11/24/2015 01 6 HTN, goal below 140/90 11/09/201510/19 Allergic [...] - TRES o Class D - Inhaled Hxotmedbfanmge-STSL-GKCY Combination Inhaler (Trellegy) o PD-4 Inhibitor (Daliresp) Self-Management plan o Prednisone 40mg daily for 5 days Rx o High frequency nebulizer treatments every 4-6 hours around the clock Exacerbation plan o Prednisone rescue kit Rescue kit given today. Educated on use. Must call [facility] when initiated so further assessment can be made documented as of this encounter (statuses as of 02/18/2024) Immunizations Name Administration Dates Next Due COVID-19 mRNA, LNP-s, No Pre serve, 2-Dose Series (Moderna) 01/28/2021 Pneumococcal Conjugate Vacci ne, 20-valent ([id number]) 05/10/2022 Pneumococcal Polysaccharide PPV23 (Pneumovax) 11/17/2013 Seasonal [...] Miscellaneous Notes * Telephone Encounter - Marcos Gamble PA-C - 02/18/2024 5:59 PM EDT Signed Prescriptions: Disp Refills buPROPion HCl ER (XL) 300 MG Oral Tablet E*90 Tab*1 Sig: TAKE ONE TABLET BY MOUTH EVERY MORNINGAuthorizing Provider: MARCOS GAMBLE * Telephone Encounter - Marcos Gamble PA-C - 02/18/2024 5:59 PM EDT Signed Prescriptions: Disp Refills buPROPion HCl ER (XL) 300 MG Oral Tablet E*90 Tab*1 Sig: TAKE ONE TABLET BY MOUTH EVERY MORNINGAuthorizing Provider: MARCOS GAMBLE * Telephone Encounter - Negar Vaz LPN - 02/18/2024 3:28 PM EDTPending Prescriptions: Disp Refills buPROPion HCl ER (XL) 300 MG Oral Tablet E*90 Tab*1 Sig: TAKE ONE TABLET BY MOUTH EVERY MORNING * Telephone Encounter - Negar Vaz LPN - 02/18/2024 3:27 PM EDT Zoloft and Albuterol have already been sent, with refills. Buproprion has been pended. Please sign if appropriate. Thank you! * Telephone Encounter - Ara Navarro OSA - 02/18/2024 3:04 PM EDT Pt requesting a refill on the Sertraline HCl 100 MG Oral Tablet (Zoloft) and also on Albuterol Sulfate (2.5 MG/3ML) 0.083% she said [facility] still uses the [facility] pharmacy in [place]. Ty * Telephone Encounter - Natty Guallpa [facility] - 02/18/2024 1:49 PM EDT Pending Prescriptions: Disp Refills buPROPion HCl ER (XL) 300 MG Oral Tablet E*90 Tab*1 Sig: TAKE ONE TABLET BY MOUTH EVERY MORNING * Telephone Encounter - Natty Guallpa [facility] - 02/18/2024 1:48 PM EDT Unable to authorize medication refills for pended medication(s) at this time. Part of the protocol criteria used for refill authorization was not satisfied. Patient Cr above protocol parameters. Please approve if appropriate. Serum creatinine: 1.3 mg/dL (H) 12/23/23 0327 Estimated creatinine clearance: 49.1 mL/min (A) CrCl 15 to 60 mL/minute: Use with caution; consider a maximum daily dose of 150 mg/day Thank you, Natty Guallpa, PharmD Clinical Pharmacist [facility] ([facility]) (formerly Telepharmacy) 02/18/24 1:48 PM [phone] documented in this encounter Plan of Treatment Upcoming Encounters Date Type Department Care Team (Latest Contact Info) Description 02/26/2024 1:41 PM EDT Hospital Encounter OR [facility], Operating Room, [facility] - 4th Floor [address] [place] [address] Andrea Mcclendon DO [address] [place] [address] 02/26/2024 1:41 PM EDT - 02/26/2024 2:32 PM EDT Surgery OR [facility], Operating Room, [facility] Floor [address] [place] [address] Andrea Mcclendon DO [address] [place] [address] LEFT EXTRACAPSULAR CATARACT REMOVAL WITH INTRAOCULAR LENS 02/27/2024 8:00 AM EDT Office Visit [place] [address] Andrea Mcclendon DO [address] [place] [address] 03/05/2024 9:45 [place] [address] Andrea Mcclendon DO [address] [place] [address] 03/17/2024 12:30 PM EDT Appointment Radiology, [place] [address] 03/17/2024 2:00 PM EDT Appoint[address] Radiology, [address] [place] [address] 03/25/2024 9:24 AM EDT Hospital Encounter OR [facility], Operating Room, [facility] Floor [address] [place] [address] [place] [address] Andrea Mcclendon, [address] [place] [address] 03/25/2024 9:24 AM EDT - 03/25/2024 10:15 AM EDT Surgery OR [facility], Operating Room, [facility] Floor [address] [place] [address] [place] [address] Andrea Mcclendon DO [address] [place] [address] RIGHT EXTRACAPSULAR CATARACT REMOVAL WITH INTRAOCULAR LENS 03/26/2024 8:00 AM EDT Office Visit OphthalmologyBearw[place] [address] Andrea Mcclendon DO [address] [place] [address] 04/02/2024 9:15 AM EDT Office Visit Ophthal[place]Bear[place] [address] Andrea Mcclendon DO [address] [place] [address] 04/07/2024 8:30 PM EDT PulmDiagnostic Sleep Lab, [address] [place] [address] [facility], Sleep Med Night Sleep [address] [facility] [place] [address] 04/25/2024 2:15 PM EDT Office Visit Ophthalmology, [place] [address] [facility] [place] [address] Andrea Mcclendon DO [address] [facility] [place] [address] 06/18/2024 7:40 AM EDT Office Visit [facility] [address], [place] [address] [place] [address] Piper Cazares DO [address] [place] [address] 07/14/2024 1:00 PM EDT PulmDiagnostic Pulmonary Function Lab, [address] [place] [address] [facility], Pulm Function Room [address] [place] [address] [place] [address] 07/14/2024 2:00 PM EDT PulmDiagnostic Pulmonary Function Lab, [address] [place] [address] [facility], Pulm Function Room 2 [address] [facility] [address] 07/23/2024 3:20 PM EDT [facility] [address] [place] [phone] Chance Zimmerman MD [address] [place] [address] Scheduled Procedures Name Priority Associated Diagnoses Date/Ti [...] exists DISCUSS TOBACCO CESSATION (REFER TO SMARTSET #8961) 10/15/2024 10/15/2023, 05/31/2023, 01/12/2023, Additional history exists Diabetic Eye Exam 12/10/2024 12/10/2023, , 12/10/2023, Additional history exists CKD PHOS USE SMARTSET 62887 12/19/202411/21, 09/12/2023, 05/21/2023, Additional history exists CKD HGB USE SMARTSET 37810 12/23/202412/23, 12/22/2023, 12/21/2023, Additional history exists Diabetic Foot Exam 02/12/2025 02/13/2024 O2 ASSESSMENT COMPLETED IN PAST YEAR FOR COPD 02/12/2025 02/13/2024 Lipid Panel 04/19/2027 04/19/2022, 12/21, 01/21/2021, Additional history exists Cervical Cancer Screening Discontinued Pap Smear Discontinued 10/10/2016, 10/21, 11/17/2013, Additional history exists Pneumococcal Vaccine: 65+ Years Completed 05/10/2022, 11/17/2013 LUNG CANCER SCREENING - USE SMARTSET 71130 Completed 09/09/2023, 05/22/2023, 12/15/2022, Additional history exists [...] Not on filedocumented as of this encounter Visit Diagnoses Diagnosis MDD (major depressive disorder), recurrent episode, mild (HCC)- Primary Major depressive disorder, recurrent episode, mild MARCIE (generalized anxiety disorder) Generalized anxiety disorder Recurrent major depressive disorder, in partial remission (HCC) Cataract Unspecified cataract Cataract Unspecified cataract documented in this encounter [...] the patient have Health Care Power of Nurse Midwife/Clinical Instructor? No Bag Valve Device? Yes Intubation? No [...] First Alternate Health Care Agent Care Teams Tipple Tender Relationship Specialty Start Date End Date Marcos Gamble PA-C [address] [facility] [place] [address] PCP - General Physician Wind Turbine Controls Engineer 11/22/23 documented as of this encounter
--- OUTSIDE RECORDS SUMMARY | 2024-04-14 12:55 | External Medical Summary | Summary of Care ---
Author Name Unknown Organization [facility] Address [address] [place] [address] Phone [phone] Care Team Providers Care Foreman Or Supervisor And Operator Name Role Phone Marcos Maurice PA-C Primary Care Provide r Reason for Visit * Reason Onset Date Comments Advice 02/20/2024 Encounter Details Date Type Department Care Team (Late st Contact Info) Description 02/20[facility] [address] [place] [address] Marcos Maurice PA-C [address] [facility] [place] [address] Advice Allergies Active Allergy Reactions Criticality Noted Date Comments Cortisone Muscle pain Medium 04/09/2017 At site of shot Bee Venom Anaphylaxis High 06/25/2021 Hydrocortisone High 12/25/2021 Other reaction(s): PAIN,UNABLE TO MOVE documented as of this encounter (statuses as of 02/20/2024) Medications Medication Sig Dispensed Refills Start Date [...] MG Oral Tablet (Crestor)Indications :Cor pulmonale, chronic ([facility]),COPD, group D, by GOLD 2017 classification ([facility] [...] 0.1 % Nasal Solution (Astelin) Administer 1 [place] into nostril in the morning and 1 [place] before bedtime. 30 mL 12 01/12/2023 Active [...] exacerbation of chronic obstructive pulmonary disease (COPD) ([facility]) Take 1 Capsule by mouth at [...] as of this encounter (statuses as of 02/20/2024) Active Problems Problem Noted Date Diagnosed Date [...] - TRES o Class D - Inhaled Vofwidmytqpjro-VEOK-ZSYT Combination Inhaler (Trellegy) o PD-4 Inhibitor (Daliresp) [...] oximeter to monitor SpO2, advised to contact [facility] if <90% and titrate as necessary, Tobacco use disorder 04/21/2021 Last Assessment & Plan: Referral to [facility] for assistance in getting nicoderm patches covered [...] Last Assessment & Plan: 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 Educated on use. Must call [facility] when initiated so further assessment can be made documented as of this encounter (statuses as of 02/20/2024) Immunizations Name Administration Dates Next Due COVID-19 mRNA, LNP-s, No Pre serve, 2-Dose Series (Moderna) 01/28/2021 Pneumococcal Conjugate Vacci ne, 20-valent ([id number]) 05/10/2022 Pneumococcal Polysaccharide PPV23 (Pneumovax) 11/17/2013 Seasonal [...] Telephone Encounter - Gladis Tellez OSA - 02/20/2024 8:50 AM EDT Shira from [facility]. They need pt's physical address which is [address] [place] [address]. documented in this encounter Plan of Treatment Upcoming Encounters Date Type Department Care Team (Latest Contact Info) Description 02/26/2024 10:14 AM EDT Hospital Encounter OR [facility], Operating Room, [facility] - 4th Floor [address] [place] [address] Andrea Mcclendon DO [address] [place] [address] 02/26/2024 10:14 AM EDT - 02/26/2024 11:05 AM EDT Surgery OR [facility], Operating Room, [facility] - 4th Floor [address] [place] [address] Andrea Mcclendon DO [address] [place] [address] LEFT EXTRACAPSULAR CATARACT REMOVAL WITH INTRAOCULAR LENS 02/27/2024 8:00 [place] [address] Andrea Mcclendon DO [address] [place] [address] 03/05/2024 9:45 AM [place] [address] Andrea Mcclendon DO [address] [place] [address] 03/17/2024 12:30 PM EDT Appointment Radiology, [place] [address] [place] [address] 03/17/2024 2:00 PM EDT Appointment Radiology, [address] [address] 03/25/2024 9:24 AM EDT Hospital Encounter OR [facility], Operating Room, [facility] - 4th Floor [address] [facility] [place] [address] Andrea Mcclendon, [address] [place] [address] 03/25/2024 9:24 AM EDT - 03/25/2024 10:15 AM EDT Surgery OR [facility], Operating Room, [facility] - 4th Floor [address] [place] [address] Andrea Mcclendon, [address] [place] [address] RIGHT EXTRACAPSULAR CATARACT REMOVAL WITH INTRAOCULAR LENS 03/26/2024 8:00 AM EDT Office Visit OphthalmologyBrodieMitchell [address] [place] [address] Andrea Mcclendon, [address] [facility] [place] [address] 04/02/2024 9:15 AM EDT Office Visit OphthalmologyBearwn [address] [place] [address] Andrea Mcclendon, [address] [place] [address] 04/07/2024 8:30 PM EDT PulmDiagnostic Sleep Lab, [address] [place] [address] [facility], Sleep Med Night Sleep [address] [place] [address] [place] [address] 04/25/2024 2:15 PM EDT Office Visit Ophthalmology, [place] [address] [facility] [place] [address] Andrea Mcclendon DO [facility] [address] 06/18/2024 7:40 AM EDT Office Visit [facility], [place] [address] [place] [address] Piper Cazares DO [address] [place] [address] 07/14/2024 1:00 PM EDT PulmDiagnostic Pulmonary Function Lab, [address] [place] [address] [facility], Pulm Function Room [address] [place] [address] [place] [address] 07/14/2024 2:00 PM EDT PulmDiagnostic Pulmonary Function Lab, [address] [facility] [address] [facility], Pulm Function Room [address] [place] [address] [place] [address] 07/23/2024 3:20 PM EDT [facility] [place] [address] [place] [phone] Chance Zimmerman MD [address] [place] [address] Scheduled Procedures Name Priority Associated Diagnoses Date/Ti me EXTRACAPSULAR CATARACT REMOV AL WITH INTRAOCULAR LENS Cataract 02/26/2024 10:14 AM EDT EXTRACAPSULAR CATARACT REMOV AL WITH [...] Additional history exists CKD PHOS USE SMARTSET 61105 12/19/202411/21, 09/12/2023, 05/21/2023, Additional history exists CKD HGB USE SMARTSET 15039 12/23/202412/23, 12/22/2023, 12/21/2023, Additional history exists Diabetic Foot Exam 02/12/2025 02/13/2024 O2 ASSESSMENT COMPLETED IN PAST YEAR FOR COPD 02/12/2025 02/13/2024 Lipid Panel 04/19/2027 04/19/2022, 12/21, 01/21/2021, Additional history exists Cervical Cancer Screening Discontinued Pap Smear Discontinued 10/10/2016, 10/21, 11/17/2013, Additional history exists Pneumococcal Vaccine: 65+ Years Completed 05/10/2022, 11/17/2013 LUNG CANCER SCREENING - USE SMARTSET 12981 Completed 09/09/2023, 05/22/2023, 12/15/2022, Additional history exists [...] the patient have Health Care Power of Ship Wirer? No Bag Valve Device? Yes Intubation? [...] 5:42 PM 05/25/2023 5:24 PM This or ejannette reflects the patients wishes and were consensually [...] First Alternate Health Care Agent Care Teams Foreman Or Supervisor And Operator Relationship Specialty Start Date End Date Marcos Maurice PA-C [address] [facility] [place] [address] PCP - General Physician Certified Personal Chef 11/22/23 documented as of this encounter
--- OUTSIDE RECORDS SUMMARY | 2024-04-14 12:55 | External Medical Summary | Summary of Care ---
Author Name Unknown Organization [facility] Address [address] [place] [address] Phone [phone] Care Team Providers Care Grab Operator Name Role Phone Marcos Maurice PA-C Primary Care Provide r Reason for Visit * Reason Comments Post Op Cataract Surgery * Evaluate & Treat - Unlimited Visits (Within 10 days (routine)) - Authorized Specialty Diagnoses / Procedures Referred By Frantz herrera Referred To Contact Ophthalmology Diagnoses Type 2 diabetes mellitus with stage 3a chronic kidney disease, without long-term current use of insulin ([facility]) Marcos Maurice PA-C [address] [place] [address] Referral ID Status Reason Start Date Expiration Date Visits Requested Visits Authorized [id number] Authorized Specialty Services Required 06/21/2023 12/22/[id number] Encounter Details Date Type Department Care Team (Late st Contact Info) Description 02/27/2024 8:00 AM EDT Office Visit [place] [id number] Andrea Mcclendon [place] [id number] After cataract not obscuring vision, left* Allergies Active Allergy Reactions Criticality Noted Date Comments Cortisone Muscle pain Medium 04/09/2017 At site of shot Bee Venom Anaphylaxis High 06/25/2021 Hydrocortisone High 12/25/2021 Other reaction(s): PAIN,UNABLE TO MOVE documented as of this encounter (statuses as of 02/27/2024) Medications Medication Sig Dispensed Refills Start Date End Date Status Acetaminophen 500 MG Oral Tablet (Tylenol) Take 1 Tablet by mouth every 6 hours as needed. 0 Active oxygen IN GASIndications:COPD, group D, by GOLD 2017 classification ([facility]),Chronic hypoxemic respiratory failure ([facility]) 2 LPM at bedtime & at rest & 3 LPM with all exertion via n/c DX J 44.9 1 Each 0 07/31/2022 Active Fluticasone Propionate 50 MCG/ACT Nasal Suspension (Flonase) Administer into each nostril 2 Sprays in the morning. 15.8 mL 2 09/22/2022 Active Rosuvastatin Calcium 20 MG Oral Tablet (Crestor)Indications :Cor pulmonale, chronic ([facility]),COPD, group D, by GOLD 2017 classification ([facility]),Hypertensive heart and kidney disease with chronic diastolic congestive heart failure and stage 3a chronic kidney disease ([facility]),Dyslipidemia,E ssential hypertension with goal blood pressure less than 140/90 Take by mouth 1 Tablet in the morning. 90 Tablet 3 09/22/2022 Active Empagliflozin 10 MG Oral Tablet (Jardiance)Indicatio ns:Type 2 diabetes mellitus with stage 3a chronic kidney disease, without long-term current use of insulin ([facility]) Take 1 Tablet by mouth in the morning. 30 Tablet 11 11/22/2022 Active metFORMIN HCl 1000 MG Oral Tablet (Glucophage)Indicati ons:Type 2 diabetes mellitus with stage 3a chronic kidney disease, without long-term current use of insulin ([facility]) Take 1 Tablet by mouth 2 times a day with morning and evening meals. 60 Tablet 5 11/22/2022 Active Azelastine HCl 0.1 % Nasal Solution (Astelin) Administer 1 [place] into nostril in the morning and 1 [place] before bedtime. 30 mL 12 01/12/2023 Active Furosemide 80 MG Oral Tablet (Lasix)Indications:G eneralized osteoarthritis,Chron ic diastolic heart failure ([facility]) Take 1 Tablet by mouth [...] ns:COPD, group D, by GOLD 2017 classification ([facility]) Inhale 1 Vial via nebulizer [...] as of this encounter (statuses as of 02/27/2024) Active Problems Problem Noted Date Diagnosed Date [...] - TRES o Class D - Inhaled Dcceilppnizabw-YAFP-XGZL Combination Inhaler (Trellegy) o PD-4 Inhibitor (Daliresp) [...] oximeter to monitor SpO2, advised to contact [facility] if <90% and titrate as necessary, Tobacco use disorder 04/21/2021 Last Assessment & Plan: Referral to [facility] for assistance in getting nicoderm patches covered [...] Last Assessment & Plan: 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 Educated on use. Must call [facility] when initiated so further assessment can be made documented as of this encounter (statuses as of 02/27/2024) Immunizations Name Administration Dates Next Due COVID-19 mRNA, LNP-s, No Pre serve, 2-Dose Series (Moderna) 01/28/2021 Pneumococcal Conjugate Vacci ne, 20-valent ([id number]) 05/10/2022 Pneumococcal Polysaccharide PPV23 (Pneumovax) 11/17/2013 Seasonal [...] of this encounter Progress Notes * Andrea Mcclendon DO - 02/27/2024 8:00 AM EDT 02/27/2024 [facility] Ophthalmology Post-operative Clinic Note HPI: Edna Kebede is a 63 year old pt who presents to the eye clinic today for 1 day post-op CE PCIOL OS (Ensor TCC CNA0T0 20.50 02/26/2024) POHx: MINOO T2DM w/o hx of retinopathy VAsc: 20/60 PH 20/50 IOP: 11 mmHg LL: Normal Conjunctiva: Normal Cornea: CCI and paracentesis cheri negative, endo debris AC: 2+ c/f Iris: Constricted Lens: PCIOL centered A/P: 1 day post op CE PCIOL OS (Ensor TCC CNA0T0 20.50 02/26/2024) Doing well today Cheri negative wounds Normal IOP Expected post operative inflammation is seen Reviewed eye drops: Ocuflox QID Prednisolone QID Reviewed activity restrictions - no bending or lifting, no strenuous activity. Wear eye shield at bedtime. Call with flashes, floaters, dec vision eye pain. Advised of inventory control specialist coverage for after hours/weekend emergencies. RTC 1 week or sooner prn. Andrea Mcclendon DO 02/27/24 documented in this encounter Nursing Notes * Kate Arriaga COA - 02/27/2024 8:25 AM EDT Edna Gomez Kelsiecelina presents for p/o check. Post operative day 1 procedure: ECCE w/IOL insertion Operative eye: LEFT EYE Patient denies complaints Dressing removed, small amount of drainage. Eye cleansed with normal saline solution. Instructions regarding wearing of eye shield reinforced. No drops used, eye was patched. Pred Forte and [id number] 4 times daily in surgical eye Did you wear eye shield to bed, slept on unaffected side and avoid bending over and heavy lifting? Yes Va will be found in the ophth exam documented in this encounter Plan of Treatment Upcoming Encounters Date Type Department Care Team (Latest Contact Info) Description 03/05/2024 9:45 AM EDT Office Visit Ophthalmology, [place] [address] [place] [address] Andrea Mcclendon DO [address] [place] [address] 03/17/2024 12:30 PM EDT Appointment Radiology [place] [address] [place] [address] 03/17/2024 2:00 PM EDT Appointment Radiology, [address] [place] [address] 03/25/2024 9:24 AM EDT Hospital Encounter OR [facility], Operating Room, [facility] - 4th Floor [address] [place] [address] Andrea Mcclendon DO [address] [place] [address] 03/25/2024 9:24 AM EDT - 03/25/2024 10:15 AM EDT Surgery OR [facility], Operating Room, [facility] - 4th Floor [address] [place] [address] Andrea Mcclendon DO [address] [place] [address] EXTRACAPSULAR CATARACT REMOVAL WITH INTRAOCULAR LENS 03/26/2024 8:00 AM EDT Office Visit [place] [address] [place] [address] Andrea Mcclendon, DO [address] [place] [address] 04/02/2024 9:15 AM EDT Office Visit [place] [address] [place] [address] Andrea Mcclendon, DO [address] [place] [address] 04/07/2024 8:30 PM EDT PulmDiagnostic Sleep Lab, [facility] [address] [facility] [address] [facility], Sleep Med Night Sleep [address] [place], [place] [address] [address] 04/25/2024 2:15 PM EDT Office Visit [place] [address] [place] [address] Andrea Mcclendon, 21 [facility] [place] [address] 06/18/2024 7:40 AM EDT Office Visit [facility], [address] [place] [address] [place] [place], [address] [place] [address] 07/14/2024 1:00 PM EDT PulmDiagnostic Pulmonary Function Lab, [facility] [address] [facility] [address] [facility], Pulm Function Room 1 [address] [place] [address] 07/14/2024 2:00 PM EDT PulmDiagnostic Pulmonary Function Lab, [facility] [address] [place] [address] Glh, Pulm Function Room 2 [address] [place] [address] 07/23/2024 3:20 PM EDT Office Visit Pulmonary Medicine [place] [address] [place] [phone] Chance Zimmerman MD [address] [place] [address] Scheduled Procedures Name Priority Associated Diagnoses Date/Ti [...] 02/03/2023 02/03/2022, 06/19 COVID-19 Vaccine (2 - 2022-24 season) 2023 [...] Additional history exists CKD PHOS USE SMARTSET 61162 12/19/202411/21, 09/12/2023, 05/21/2023, Additional history exists CKD HGB USE SMARTSET 48554 12/23/202412/23, 12/22/2023, 12/21/2023, Additional history exists Diabetic Foot Exam 02/12/2025 02/13/2024 O2 ASSESSMENT COMPLETED IN PAST YEAR FOR COPD 02/25/2025 02/26/2024 Lipid Panel 04/19/2027 04/19/2022, 12/21, 01/21/2021, Additional history exists Cervical Cancer Screening Discontinued Pap Smear Discontinued 10/10/2016, 10/21, 11/17/2013, Additional history exists Pneumococcal Vaccine: 65+ Years Completed 05/10/2022, 11/17/2013 LUNG CANCER SCREENING - USE SMARTSET 83993 Completed 09/09/2023, 05/22/2023, 12/15/2022, Additional history exists [...] this encounter Medical Devices Implanted Type Area Powertrain Engineer Device Identifier Shelf Expiration Date Model / Serial / Lot Lens 20.5 [place] - [id number] - [id number] Implanted:Qty: 1 on 02/26/2024 by Andrea Mcclendon DO at OR [facility] Left: Eye [employer] 08/25/2026 CNA0T0.205 / [id number] / documented as of this encounter [...] the patient have Health Care Power of Roof Fixer? No Bag Valve Device? Yes Intubation? No [...] Relationship Healthcare Agent Relationshi p Communication Martinez SEB Adult Child First Alternate Health Care Agent Peter Seb Adult Child First Alternate Health Care Agent Jazmine Corona Adult Child First Alternate Health Care Agent Care Teams Grab Operator Relationship Specialty Start Date End Date Marcos Maurice PA-C [address] [facility] [place] [address] PCP - General Physician Rn Teacher 11/22/23 documented as of this encounter
--- OUTSIDE RECORDS SUMMARY | 2024-04-14 12:55 | External Medical Summary ---
Author Name Unknown Address Unknown Organization : Laboratory Report Ordering Provider Test Date Status CLINT STILL 02/26/2024 09:43:11 Final Observation Date Value Abnormality Reference (Units ) Status Glucose Point of Care 02/26/2024 09:43:11 186 Above high normal 70-120 (mg/dL) Final Performing Location
--- OUTSIDE RECORDS SUMMARY | 2024-04-14 12:55 | External Medical Summary | Summary of Care ---
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 draped in the usual sterile fashion. After the lid speculum was inserted, a paracentesis incision was made at the 5 o'clock position with a sharp blade. MPF lidocaine was instilled. The anterior chamber was then refilled with Viscoat. The main wound was then created at 3' using the 2.4mm phacokeratome blade. A continuous curvilinear capsulorrhexis was then performed initially with a cystotome, then completed with Utrada forceps. Hydrodissection and hydrodelineation were achieved with balanced salt solution through a 27G cannula. The phacoemulsification handpiece was utilized to remove the lens nucleus with a [id number] technique. Residual cortical material was removed with the irrigating and aspirating device. After nucleus removal, the posterior portion of the bag was very floppy. On the last piece of cortex re moval around 11 o'clock the bag appeared folded on itself. The zonules were healthy. I could not find any puncture of the posterior capsule. It appeared folded on itself. The capsular bag was re-formed with viscoelastic. This fold went away with inflation of the bag. An CNA0T0 20.50 diopters in power (selected after review and interpretation of IOL measurements), acrylic foldable lens was placed into the capsular bag uneventfully and rotated into position with a Sinskey hook. It was noted to bein a central and stable position. The residual viscoelastic was irrigated and aspirated from the anterior chamber. The lens was well centered and that fold in the periphery at 10 o'clock remained. I swept the anterior chamber. There was no vitreous. The lens was centered nicely. I place mioStat andthe pupil constricted. It was round without any peaking. Stromal hydration was applied to the wound. The anterior chamber was re-formed with balanced salt solution. The wounds were checked with Weck-cels and found to be watertight. The lid speculum was then removed. Brimonidine, prednisolone, ocuflo x drops and erythromycin oph ointment were instilled in the eye. I will watch that particular area at 10 o'clock in the post op period but at the conclusion of the case the lens was well centered andthere appeared to be no other intra- operative complications. The patient tolerated the procedure well. There were no complications I performed the procedure Andrea Mcclendon DO 02/26/2024 11:16 AM documented in this encounter Plan of Treatment Upcoming Encounters Date Type Department Care Team (Latest Contact Info) Description 02/27/2024 8:00 AM EDT Office Visit Ophthalmology, [place] [address] [place] [address] [place] [address] Andrea Mcclendon DO [place] [address] 03/05/2024 9:45 AM EDT Office Visit Ophthalmology, [place] [address] [place] [address] Andrea Mcclendon, [address] [place] [address] 03/17/2024 12:30 PM EDT [facility] [place] [address] 03/17/2024 2:00 PM EDT Appointment Radiology, [address] [place] [address] 03/25/2024 9:24 AM EDT Hospital Encounter OR [place], Operating Room, [facility] - 4th Floor [address] [facility] [place] [address] Andrea Mcclendon DO [address] [place] [address] 03/25/2024 9:24 AM EDT - 03/25/2024 10:15 AM EDT Surgery OR [facility], Operating Room, [facility] - [facility]th [facility] [address] Andrea Mcclendon, [address] [place] [place] [address] EXTRACAPSULAR CATARACT REMOVAL WITH INTRAOCULAR LENS 03/26/2024 8:00 AM EDT Office Visit [facility] [place] [address] Andrea Mcclendon, [address] [place] [address] 04/02/2024 9:15 AM EDT [facility] [place] [facility] [address] [place] [address] Andrea Mcclendon, DO [address] [place] [address] 04/07/2024 8:30 PM EDT PulmDiagnostic Sleep Lab, [address] [place] [address] [facility], Sleep Med Night Sleep [address] [place] [address] [place] [address] 04/25/2024 2:15 PM EDT Office Visit [facility], [place] [address] [place] [address] Andrea Mcclendon, [facility] [address] 06/18/2024 7:40 AM EDT Office Visit [facility], [place] [address] [facility] [place] [address] Piper Cazares DO [address] [facility] [place] [address] 07/14/2024 1:00 PM EDT PulmDiagnostic Pulmonary Function Lab, [address] [place] [address] [facility], Pulm Function Room [address] [place] [address] [place] [address] 07/14/2024 2:00 PM EDT PulmDiagnostic Pulmonary Function Lab, [address] [place] [address] [facility], Pulm Function Room [address] [place], [place] [address] [address] 07/23/2024 3:20 PM EDT Office Visit Pulmonary Medicine Pratibha Anguiano [address] [place] [phone] Chance Zimmerman MD [address] [place] [address] Scheduled Procedures Name Priority Associated Diagnoses Date/Ti [...] Additional history exists CKD PHOS USE SMARTSET 56018 12/19/202411/21, 09/12/2023, 05/21/2023, Additional history exists CKD HGB USE SMARTSET 61085 12/23/202412/23, 12/22/2023, 12/21/2023, Additional history exists Diabetic Foot Exam 02/12/2025 02/13/2024 O2 ASSESSMENT COMPLETED IN PAST YEAR FOR COPD 02/25/2025 02/26/2024 Lipid Panel 04/19/2027 04/19/2022, 12/21, 01/21/2021, Additional history exists Cervical Cancer Screening Discontinued Pap Smear Discontinued 10/10/2016, 10/21, 11/17/2013, Additional history exists Pneumococcal Vaccine: 65+ Years Completed 05/10/2022, 11/17/2013 LUNG CANCER SCREENING - USE SMARTSET 43791 Completed 09/09/2023, 05/22/2023, 12/15/2022, Additional history exists [...] this encounter Medical Devices Implanted Type Area Ben Day Artist Device Identifier Shelf Expiration Date Model / Serial / Lot Lens 20.5 Dakotah - [id number] - [id number] Implanted:Qty: 1 on 02/26/2024 by Andrea Mcclendon DO at OR [facility] Left: Eye [employer] 08/25/2026 [id number] / [id number] / documented as of this encounter Procedures Procedure Name Priority Date/Time Associated Diagnosis Comments GLUCOSE METER, POINT OF CARE WILEY 02/26/2024 9:43 AM EDT documented in this encounter Results * (ABNORMAL) GLUCOSE METER, POINT OF CARE (02/26/2024 9:43 AM EDT) Glucose Meter 186(H) 70 - 120 mg/dL 02/26/2024 9:45 AM EDT [facility] Blood Whole blood specimen / Unknown 02/26/2024 9:43 AM EDT 02/26/2024 9:45 AM EDT Andrea Mcclendon DO LAB POINT OF CARE TE ST DOCKED DEVICE UNSOLICITED RESULTS [facility] [address] [facility] [place] [address] documented in this encounter Visit Diagnoses Diagnosis Combined forms of age-related cataract of left eye- Primary Other and combined forms of senile cataract After cataract not obscuring vision, left- Primary Cataract Unspecified cataract documented in this encounter Administered Medications Inactive Administered Medications - up to 3 most recent administrations Medication Order MAR Action Action Date Dose Rate Site Acetaminophen (Tylenol) tab 650 mg 650 mg, Oral, ONCE, On Sun02/26/24 at 1230, For 1 dose, Maximum of 4 grams (4000 mg) per day. Given 02/26/2024 11:51 AM EDT 650 mg albuterol-ipratropium (Duoneb) inhalation solution 3 mL 3 mL, Nebulizer, RESPQID, First dose on Sun02/26/24 at 1200, Until Discontinued, 3 mL = 0.5 mg ipratropium/ 2.5 mg albuterol, Pre-Op Given 02/26/2024 11:38 AM EDT 3 mL Diclofenac Sodium (Voltaren) 0.1 % ophthalmic solution 1 Drop 1 Drop, Left eye, Q5 MINUTES, First dose on Sun02/26/24 at 1000, Last dose on Sun02/26/24 at 1010, For 3 doses, PRE-OP: One drop to left eye every 5 minutes for 3 doses, Pre-Op Given 02/26/2024 10:00 AM EDT 1 Drop Given 02/26/2024 9:55 AM EDT 1 Drop Given 02/26/2024 9:44 AM EDT 1 Drop isolyte-S pH 7.4 infusion Intravenous, Plasma-LYTE 148, isolyte-S, and isolyte-S pH 7.4 are considered equivalent - including for MAR barcode scanning., CONTINUOUS, Starting on Sun02/26/24 at 1000, Until Sun02/26/24 at 1621, Pre-Op Restarted 02/26/2024 10:45 AM EDT Continue from Pre-Op 02/26/2024 10:39 AM EDT 10 mL/hr New Bag 02/26/2024 10:00 AM EDT 10 mL/hr Lidocaine urethral/mucosal 2 % gel 2 mL Topical, ONCE, 1 dose, On Sun02/26/24 at 1000, 15 minutes prior to scheduled surgery time, apply 2 ml to superior and inferior fornices left eye & tape eyes shut., Pre-Op Given 02/26/2024 10:21 AM EDT 2 mL Ofloxacin (Ocuflox) 0.3 % ophthalmic solution 1 Drop 1 Drop, Left eye, Q5 MINUTES, First dose on Sun02/26/24 at 1000, Last dose on Sun02/26/24 at 1010, For 3 doses, PRE-OP: One drop to left eye every 5 minutes for 3 doses, Pre-Op Given 02/26/2024 10:0 0 AM EDT 1 Drop Given 02/26/2024 9:55 AM EDT 1 Drop Given 02/26/2024 9:44 AM EDT 1 Drop prednisoLONE Acetate (Pred Forte) 1 % ophthalmic suspension 1 Drop 1 Drop, Left eye, Q5 MINUTES, First dose on Sun02/26/24 at 1000, Last dose on Sun02/26/24 at 1010, For 3 doses, PRE-OP: One drop to left eye every 5 minutes for 3 doses., Pre-Op Given 02/26/2024 10:00 AM EDT 1 Drop Given 02/26/2024 9:55 AM EDT 1 Drop Given 02/26/2024 9:45 AM EDT 1 Drop proparacaine (Alcaine) 0.5 % ophthalmic solution 1 Drop 1 Drop, Left eye, ONCE, On Sun02/26/24 at 1000, For 1 dose, PRE-OP: 15 minutes prior to scheduled surgery time for 1 dose, Pre-Op Given 02/26/2024 9:44 AM EDT 1 Drop tropicamide 1%-cyclopentolate 1%-phenylephrine 2.5% ophthalmic solution 1 Drop 1 Drop, Left eye, Q5 MINUTES, First dose on Sun02/26/24 at 1000, Last dose on Sun02/26/24 at 1010, For 3 doses Given 02/26/2024 10:00 AM EDT 1 Drop Given 02/26/2024 9:55 AM EDT 1 Drop Given 02/26/2024 9:45 AM EDT 1 Drop documented in this encounter Active and Recently Administered Medications Times are shown in EDT. Scheduled Medication Order 02/24/2024 02/25/2024 02/26/2024 Acetaminophen (Tylenol) tab 650 mg (COMPLETED) 650 mg, Oral, ONCE, On Sun02/26/24 at 1230, For 1 dose, Maximum of 4 grams (4000 mg) per day. 1151 (Given - Provid er: Alyssa Corbin RN) albuterol-ipratropium (Duoneb) inhalation solution 3 mL 3 mL, Nebulizer, RESPQID, First dose on Sun02/26/24 at 1200, Until Discontinued, 3 mL = 0.5 mg ipratropium/ 2.5 mg albuterol, Pre-Op 1138 (Given - Provid er: Alejo Paul, DARYA) Diclofenac Sodium (Voltaren) 0.1 % ophthalmic solution 1 Drop (COMPLETED) 1 Drop, Left eye, Q5 MINUTES, First dose on Sun02/26/24 at 1000, Last dose on Sun02/26/24 at 1010, For 3 doses, PRE-OP: One drop to left eye every 5 minutes for 3 doses, Pre-Op 0944 (Given - Provid er: Milady Ortega RN)0955 (Given - Provider: Ellie Meehan RN)1000 (Given - Provider: Ellie Meehan RN) Lidocaine urethral/mucosal 2 % gel 2 mL (COMPLETED) Topical, ONCE, 1 dose, On Sun02/26/24 at 1000, 15 minutes prior to scheduled surgery time, apply 2 ml to superior and inferior fornices left eye & tape eyes shut., Pre-Op 1021 (Given - Provid er: Ellie Meehan RN) Ofloxacin (Ocuflox) 0.3 % ophthalmic solution 1 Drop (COMPLETED) 1 Drop, Left eye, Q5 MINUTES, First dose on Sun02/26/24 at 1000, Last dose on Sun02/26/24 at 1010, For 3 doses, PRE-OP: One drop to left eye every 5 minutes for 3 doses, Pre-Op 0944 (Given - Provid er: Milady Ortega RN)0955 (Given - Provider: Ellie Meehan RN)1000 (Given - Provider: Ellie Meehan RN) prednisoLONE Acetate (Pred Forte) 1 % ophthalmic suspension 1 Drop (COMPLETED) 1 Drop, Left eye, Q5 MINUTES, First dose on Sun02/26/24 at 1000, Last dose on Sun02/26/24 at 1010, For 3 doses, PRE-OP: One drop to left eye every 5 minutes for 3 doses., Pre-Op 0945 (Given - Provid er: Milady Ortega RN)0955 (Given - Provider: Ellie Meehan RN)1000 (Given - Provider: Ellie Meehan RN) proparacaine (Alcaine) 0.5 % ophthalmic solution 1 Drop (COMPLETED) 1 Drop, Left eye, ONCE, On Sun02/26/24 at 1000, For 1 dose, PRE-OP: 15 minutes prior to scheduled surgery time for 1 dose, Pre-Op 0944 (Given - Provid er: Milady Ortega RN) tropicamide 1%-cyclopentolate 1%-phenylephrine 2.5% ophthalmic solution 1 Drop (COMPLETED) 1 Drop, Left eye, Q5 MINUTES, First dose on Sun02/26/24 at 1000, Last dose on Sun02/26/24 at 1010, For 3 doses 0945 (Given - Provid er: Milady Ortega RN)0955 (Given - Provider: Ellie Meehan RN)1000 (Given - Provider: Ellie Meehan RN) Continuous Medication Order 02/24/2024 02/25/2024 02/26/2024 isolyte-S pH 7.4 infusion Intravenous, Plasma-LYTE 148, isolyte-S, and isolyte-S pH 7.4 are considered equivalent - including for MAR barcode scanning., CONTINUOUS, Starting on Sun02/26/24 at 1000, Until Sun02/26/24 at 1621, Pre-Op 1000 (New Bag - Prov ider: Milady Ortega RN)1039 (Continue from Pre-Op - Provider: Jorge Aponte CRNA)1044 (Paused - Provider: Jorge Aponte CRNA - Comment: Switch to gravity)1045 (Restarted - Provider: Jorge Aponte CRNA)1113 (Anes Intra-Op Fluid - Provider: Anabel Medrano CRNA) PRN Medication Order 02/24/2024 02/25/2024 02/26/2024 balanced salt solution (Bss) ophthalmic solution (CANCELED) ONCE PRN INTRA PROCEDURE, Starting on 02/26/24 at 1054, Until 02/26/24 at 1114, Intra-Op 1054 (Given - Provid er: Andrea Mcclendon DO) briMONidine tartrate (Alphagan) 0.2 % ophthalmic solution (CANCELED) ONCE PRN INTRA PROCEDURE, Starting on e 02/26/24 at 1054, Until 02/26/24 at 1114, Intra-Op 1054 (Given - Provid er: Andrea Mcclendon DO) Carbachol (Carbastat) 0.01 % intraocular inj (CANCELED) ONCE PRN INTRA PROCEDURE, Starting on e 02/26/24 at 1109, Until Sun02/26/24 at 1114, Intra-Op 1109 (Given - Provid er: Andrea Mcclendon DO) DUOVISC inj KIT (CANCELED) ONCE PRN INTRA PROCEDURE, Starting on e 02/26/24 at 1054, Until 02/26/24 at 1114, Intra-Op 1054 (Given - Provid er: Andrea Mcclendon DO) EPINEPHrine 0.5 mg in NSS 500 mL irrigation (CANCELED) ONCE PRN INTRA PROCEDURE, Starting on e 02/26/24 at 1053, Until 02/26/24 at 1114, Intra-Op 1053 (Given - Provid er: Andrea Mcclendon DO) Erythromycin ophthalmic ointment (CANCELED) ONCE PRN INTRA PROCEDURE, Starting on e 02/26/24 at 1054, Until 02/26/24 at 1114, Intra-Op 1054 (Given - Provid er: Andrea Mcclendon DO) hydroxypropyl methylcellulose (Ocucoat) 2 % intraocular inj (CANCELED) ONCE PRN INTRA PROCEDURE, Starting on 02/26/24 at 1055, Until 02/26/24 at 1114, Intra-Op 1055 (Given - Provid er: Andrea M Ensor, DO) Ofloxacin (Ocuflox) 0.3 % ophthalmic solution (CANCELED) ONCE PRN INTRA PROCEDURE, Starting on Sun02/26/24 at 1055, Until Sun02/26/24 at 1114, Intra-Op 1055 (Given - Provid er: Andrea Mclcendon, ) prednisoLONE Acetate (Pred Forte) 1 % ophthalmic suspension (CANCELED) ONCE PRN INTRA PROCEDURE, Starting on Sun02/26/24 at 1055, Until Sun02/26/24 at 1114, Intra-Op 1055 (Given - Provid er: Andrea Mcclendon, ) Tetracaine (Pontocaine) 0.5 % ophthalmic solution (CANCELED) ONCE PRN INTRA PROCEDURE, Starting on Sun02/26/24 at 1055, Until Sun02/26/24 at 1114, Intra-Op 1055 (Given - Provid er: Andrea Mcclendon DO) [...] the patient have Health Care Power of Career Professional? No Bag Valve Device? Yes Intubation? [...] First Alternate Health Care Agent Care Teams Stock Feeder Relationship Specialty Start Date End Date Marcos Maurice PA-C [facility] [facility] [place] [address] PCP - General Physician Bottom Presser 11/22/23 documented as of this encounter
--- OUTSIDE RECORDS SUMMARY | 2024-04-14 12:55 | External Medical Summary | Summary of Care ---
Author Name Unknown Organization [facility] Address [address] [place] [address] Phone [phone] Care Team Providers Care Crm System Administrator Name Role Phone Marcos Maurice PA-C Primary Care Provide r Reason for Visit * Reason Onset Date Comments Advice 02/15/2024 Encounter Details Date Type Department Care Team (Late st Contact Info) Description 02/15/2024 Telephone Family Practice [place] Das[place]va [address] [place] [address] Marcos Maurice PA-C [address] [facility] [place] [address] Advice Allergies Active Allergy [...] 0.1 % Nasal Solution (Astelin) Administer 1 [place] into nostril in the morning and 1 [place] before bedtime. 30 mL 12 01/12/2023 Active [...] chronic obstructive pulmonary disease (COPD) ([facility]) Take 1 Capsule by mouth [...] Additional Information Patient not taking.Reported on 02/18/2024 Hospital, Clinic, or Other Facility Administered Medication [...] - TRES o Class D - Inhaled Cbgleirhhgknro-IMNO-DPWY Combination Inhaler (Ernestollegy) o PD-4 Inhibitor (Daliresp) [...] oximeter to monitor SpO2, advised to contact [facility] if <90% and titrate as necessary, Tobacco use disorder 04/21/2021 Last Assessment & Plan: Referral to [employer] for assistance in getting nicoderm patches [...] Last Assessment & Plan: Currently followed by commissioning manager--not on any antihistamines currently, has follow up [...] - TRES o Class D - Inhaled Sbdsylzdwsvsnu-AEEJ-IYXY Combination Inhaler (Trellegy) o PD-4 Inhibitor (Daliresp) Self-Management plan o Prednisone 40mg daily for 5 days Rx o High frequency nebulizer treatments every 4-6 hours around the clock Exacerbation plan o Prednisone rescue kit Rescue kit given today. Educated on use. Must call [facility] when initiated so further assessment can be made documented as of this encounter (statuses as of 02/20/2024) Immunizations Name Administration Dates Next Due COVID-19 mRNA, LNP-s, No Pre serve, 2-Dose Series (Moderna) 01/28/2021 Pneumococcal Conjugate Vacci ne, 20-valent ([id number]) 05/10/2022 Pneumococcal Polysaccharide PPV23 (Pneumovax) 11/17/2013 Seasonal [...] encounter Miscellaneous Notes * Telephone Encounter - Norma Collins OSA - 02/20/2024 8:38 AM EDT Home health is calling back to speak with someone from clinic to confirm what is needed for the pt per the referral that was sent out to them, will try to connect to clinic. Transferred to front desk attendant * Telephone Encounter - Alina Navarro OSA - 02/15/2024 11:19 AM EDT Shira from [facility] Home Health calling about home health order they received for patient. Stating sheneeds more information: 1) She is asking what kind of services patient needs as it is not specified on order 2) The office notes she received will need to be relevant to what she needs home health for. The office notes from Letty Villegas can be accepted if relevant but then referral will need to be ordered by Letty Villegas herself 3) They need a physical address as only a PO box is on file Please contact Shira at [phone] with information documented in this encounter Plan of Treatment Upcoming Encounters Date Type Department Care Team (Latest Contact Info) Description 02/26/2024 10:14 AM EDT Hospital Encounter OR [facility], Operating Room, [facility] - 4th Floor [address] [place] [address] Andrea Mcclendon, [address] [place] [address] 02/26/2024 10:14 AM EDT - 02/26/2024 11:05 AM EDT Surgery OR [facility], Operating Room, [facility] - 4th Floor [address] [place] [address] Andrea Mcclendon DO [address] [place] [address] LEFT EXTRACAPSULAR CATARACT REMOVAL WITH INTRAOCULAR LENS 02/27/2024 8:00 AM EDT Office Visit OphthalmologyPratibha [address] [place] [address] Andrea Mcclendon DO [address] [place] [address] 03/05/2024 9:45 AM EDT Office Visit Ophthalmology, [place] [address] [place] [address] Andrea Mcclendon DO [address] [place] [address] 03/17/2024 12:30 PM EDT Appointment Radiology, [place] [address] 03/17/2024 2:00 PM EDT Appointment Radiology, [address] [place] [address] 03/25/2024 9:24 AM EDT Hospital Encounter OR [facility], Operating Room, [facility] - 4th Floor [address] [place] [address] [place] [address] Andrea Mcclendon DO [address] [place] [address] 03/25/2024 9:24 AM EDT - 03/25/2024 10:15 AM EDT Surgery OR [facility], Operating Room, [facility] - 4th Floor [address] [place] [address] [place] [address] Andrea Mcclendon DO [address] [place] [address] RIGHT EXTRACAPSULAR CATARACT REMOVAL WITH INTRAOCULAR LENS 03/26/2024 8:00 AM EDT Office Visit OphthalmologyBearwn [address] [place] [address] Andrea Mcclendon DO [address] [place] [address] 04/02/2024 9:15 AM EDT Office Visit Pratibha Casey [address] [place] [address] Andrea Mcclendon DO [address] [place] [address] 04/07/2024 8:30 PM EDT PulmDiagnostic Sleep Lab, [facility] [address] [facility] [address] [facility], Sleep Med Night Sleep [address] [place] [address] [place] [address] 04/25/2024 2:15 PM EDT Office Visit Ophthalmology [place] [address] [facility] [place] [address] Andrea Mcclendon, DO [address] [facility] [address] 06/18/2024 7:40 AM EDT Office Visit [facility], [place] [address] [place] [address] Piper Cazares, [address] [place] [address] 07/14/2024 1:00 PM EDT PulmDiagnostic Pulmonary Function Lab, [address] [place] [address] [facility], Pulm Function Room [address] [place], [place] [address] [address] 07/14/2024 2:00 PM EDT PulmDiagnostic Pulmonary Function Lab, [address] [place] [address] [facility], Pulm Function Room [address] [place] [address] [place] [address] 07/23/2024 3:20 PM EDT Office Visit Pulmonary Medicine [place] [address] [place] [phone] Chance Zimmerman MD [address] [facility] [place] [address] Scheduled Procedures Name Priority Associated Diagnoses Date/Ti [...] Additional history exists CKD PHOS USE SMARTSET 25865 12/19/202411/21, 09/12/2023, 05/21/2023, Additional history exists CKD HGB USE SMARTSET 47510 12/23/202412/23, 12/22/2023, 12/21/2023, Additional history exists Diabetic Foot Exam 02/12/2025 02/13/2024 O2 ASSESSMENT COMPLETED IN PAST YEAR FOR COPD 02/12/2025 02/13/2024 Lipid Panel 04/19/2027 04/19/2022, 12/21, 01/21/2021, Additional history exists Cervical Cancer Screening Discontinued Pap Smear Discontinued 10/10/2016, 10/21, 11/17/2013, Additional history exists Pneumococcal Vaccine: 65+ Years Completed 05/10/2022, 11/17/2013 LUNG CANCER SCREENING - USE SMARTSET 94712 Completed 09/09/2023, 05/22/2023, 12/15/2022, Additional history exists [...] the patient have Health Care Power of Garment Finisher? No Bag Valve Device? Yes Intubation? No [...] First Alternate Health Care Agent Care Teams Crm System Administrator Relationship Specialty Start Date End Date Marcos Maurice PA-C [address] [facility] [place] [address] PCP - General Physician Mask Layout Designer 11/22/23 documented as of this encounter
--- OUTSIDE RECORDS SUMMARY | 2024-04-14 12:56 | External Medical Summary | Summary of Care ---
Author Name Unknown Organization [facility] Address [address] [place] [address] Phone [phone] Care Team Providers Care Health Management Consultant Name Role Phone Marcos Maurice PA-C Primary Care Provide r Reason for Visit * Reason Onset Date Comments Appointment 02/14/2024 Home Nursing Encounter Details Date Type Department Care Team (Late st Contact Info) Description 02/14[facility] [address] [facility] [place] [address] Marcos Maurice PA-C [address] [facility] [place] [address] Appointment (Home Nursing) Allergies [...] (HCC),COPD, group D, by GOLD 2017 classification ([facility]),Hypertensive heart and kidney disease with chronic diastolic congestive heart failure and stage 3a chronic kidney disease ([facility]),Dyslipidemia,E ssential hypertension with goal blood pressure less than 140/90 Take by mouth 1 Tablet in the morning. 90 Tablet 3 09/22/2022 Active Empagliflozin 10 MG Oral Tablet (Jardiance)Indicatio ns:Type 2 diabetes mellitus with stage 3a chronic kidney disease, without long-term current use of insulin ([facility]) Take 1 Tablet by mouth in the morning. 30 Tablet 11 11/22/2022 Active metFORMIN HCl 1000 MG Oral Tablet (Glucophage)Indicati ons:Type 2 diabetes mellitus with stage 3a chronic kidney disease, without long-term current use of insulin ([facility]) Take 1 Tablet by mouth 2 times a day with morning and evening meals. 60 Tablet 5 11/22/2022 Active Azelastine HCl 0.1 % Nasal Solution (Astelin) Administer 1 [place] into nostril in the morning and 1 [place] before bedtime. 30 mL 12 01/12/2023 Active [...] ns:COPD, group D, by GOLD 2017 classification ([facility]) Inhale 1 Vial via nebulizer every 4 hours as needed for Wheezing or Shortness of Breath. 180 mL 11 01/31/2024 Active Albuterol Sulfate (2.5 MG/3ML) 0.083% Inhalation Nebulization Solution (Proventil)Indicatio ns:COPD, group D, by GOLD 2017 classification ([facility]) Inhale 1 Vial via nebulizer [...] - TRES o Class D - Inhaled Qbomvojcgdzzbg-HIRJ-TPVA Combination Inhaler (Trellegy) o PD-4 Inhibitor (Daliresp) [...] oximeter to monitor SpO2, advised to contact [facility] if <90% and titrate as necessary, Tobacco use disorder 04/21/2021 Last Assessment & Plan: Referral to [employer] 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 Educated on use. Must call [facility] when initiated so further assessment can be made documented as of this encounter (statuses as of 02/15/2024) Immunizations Name Administration Dates Next Due COVID-19 mRNA, LNP-s, No Pre serve, 2-Dose Series (Moderna) 01/28/2021 Pneumococcal Conjugate Vacci ne, 20-valent ([id number]) 05/10/2022 Pneumococcal Polysaccharide PPV23 (Pneumovax) 11/17/2013 Seasonal [...] AM EDT Home Nursing referral/info faxed to [facility] [facility]. They will contact pt directly with appt. [...] 02/26/2024 1:41 PM EDT Hospital Encounter OR [facility], Operating Room, [facility] - 4th Floor [address] [place] [address] Andrea Mcclendon DO [address] [place] [id number] 02/26/2024 1:41 PM EDT - 02/26/2024 2:32 PM EDT Surgery OR [facility], Operating Room, [facility] - 4th Floor [address] [place] [address] Andrea Mcclendon DO [address] [place] [id number] LEFT EXTRACAPSULAR CATARACT REMOVAL WITH INTRAOCULAR LENS 02/27/2024 8:00 AM EDT Office Visit Pratibha Casey [address] [place] [address] Andrea Mcclendon DO [address] [place] [address] 03/05/2024 9:45 AM EDT Office Visit Pratibha Casey [address] [place] [address] Andrea Mcclendon, [address] [place] [address] 03/17/2024 12:30 PM EDT Appointment Pratibha [place] [address] 03/17/2024 2:00 PM EDT Appointment Radiology, [address] [place] [address] 03/25/2024 9:24 AM EDT Hospital Encounter OR [facility], Operating Room, [facility] - 4th Floor [address] [facility] [place] [address] Andrea Mcclendon DO [address] [place] [id number] 03/25/2024 9:24 AM EDT - 03/25/2024 10:15 AM EDT Surgery OR [facility], Operating Room, [facility] Floor [address] [place] [address] [place] [id number] Andrea Mcclendon, [address] [place] [address] RIGHT EXTRACAPSULAR CATARACT REMOVAL WITH INTRAOCULAR LENS 03/26/2024 8:00 AM EDT Office Visit Ophthalmology, [place] [address] Andrea Mcclendon DO [address] [place] [address] 04/02/2024 9:15 [place] [address] Andrea Mcclendon, [address] [place] [address] 04/07/2024 8:30 PM EDT [facility], [address] [place] [address] [facility], Sleep Med Night Sleep [address] [facility] [place] [address] 04/25/2024 2:15 PM EDT [facility] Visit [facility] [address] [place] [address] [facility] [id number] 06/18/2024 7:40 AM EDT Office Visit [facility], [place] [address] [facility] [place] [address] Piper Cazares DO [address] [facility] [place] [address] 07/14/2024 1:00 PM EDT [facility] Pulmonary Function Lab, [address] [address] [facility], Pulm Function Room [address] [place], [place] [address] [address] 07/14/2024 2:00 PM EDT [facility], [address] [address] [facility], Pulm Function Room [address] [place] [address] [place] [address] 07/23/2024 3:20 PM EDT [facility] [address] [place] [phone] Chance Zimmerman MD [address] [place] [address] Scheduled Procedures Name Priority Associated Diagnoses Date/Ti [...] exists DISCUSS TOBACCO CESSATION (REFER TO SMARTSET #3519) 10/15/2024 10/15/2023, 05/31/2023, 01/12/2023, Additional history exists Diabetic Eye Exam 12/10/2024 12/10/2023, , 12/10/2023, Additional history exists CKD PHOS USE SMARTSET 35563 12/19/202411/21, 09/12/2023, 05/21/2023, Additional history exists CKD HGB USE SMARTSET 34438 12/23/202412/23, 12/22/2023, 12/21/2023, Additional history exists Diabetic Foot Exam 02/12/2025 02/13/2024 O2 ASSESSMENT COMPLETED IN PAST YEAR FOR COPD 02/12/2025 02/13/2024 Lipid Panel 04/19/2027 04/19/2022, 12/21, 01/21/2021, Additional history exists Cervical Cancer Screening Discontinued Pap Smear Discontinued 10/10/2016, 10/21, 11/17/2013, Additional history exists Pneumococcal Vaccine: 65+ Years Completed 05/10/2022, 11/17/2013 LUNG CANCER SCREENING - USE SMARTSET 11972 Completed 09/09/2023, 05/22/2023, 12/15/2022, Additional history exists [...] the patient have Health Care Power of Environmental Research Scientist? No Bag Valve Device? Yes Intubation? No [...] Agents on File Name Relationship Healthcare Agent [facility] Martinez GRIGSBY Adult Child First Alternate Health Care Agent Peter Seb Adult Child First Alternate Health Care Agent Jazmine Corona Adult Child First Alternate Health Care Agent Care Teams Health Management Consultant Relationship Specialty Start Date End Date Marcos Maurice PA-C [address] [facility] [place] [id number] PCP - General Physician Leadership Program Associate 11/22/23 documented as of this encounter
--- OUTSIDE RECORDS SUMMARY | 2024-04-14 12:56 | External Medical Summary | Summary of Care ---
Author Name Unknown Organization [facility] Address [address] [place] [address] Phone [phone] Care Team Providers Care Information And Data Architect Analyst Name Role Phone Marcos Maurice PA-C Primary Care Provide r Reason for Visit * Reason Comments pre-op exam * Evaluate & Treat - Unlimited Visits (Within 10 days (routine)) - Authorized Specialty Diagnoses / Procedures Referred By Frantz herrera Referred To Contact Ophthalmology Diagnoses Type 2 diabetes mellitus with stage 3a chronic kidney disease, without long-term current use of insulin ([facility]) Marcos Maurice PA-C [address] [place] [address] Referral ID Status Reason Start Date Expiration Date Visits Requested Visits Authorized [id number] Authorized Specialty Services Required 06/21/2023 12/22/[phone] Encounter Details Date Type Department Care Team (Late st Contact Info) Description 02/08/2024 8:00 AM EDT Office Visit Ophthalmology, [place] [id number] Andrea Mcclendon DO [place] [address] Nurse [facility] [place] [address] Combined forms of age-related cataract of both eyes* Allergies Active Allergy Reactions Criticality Noted Date Comments Cortisone Muscle pain Medium 04/09/2017 At site of shot Bee Venom Anaphylaxis High 06/25/2021 Hydrocortisone High 12/25/2021 Other reaction(s): PAIN,UNABLE TO MOVE documented as of this encounter (statuses as of 02/08/2024) Medications Medication Sig Dispensed Refills Start Date End Date Status Acetaminophen 500 MG Oral Tablet (Tylenol) Take 1 Tablet by mouth every 6 hours as needed. 0 Active oxygen IN GASIndications:COPD, group D, by GOLD 2017 classification ([facility]),Chronic hypoxemic respiratory failure ([facility]) 2 LPM at bedtime & at rest & 3 LPM with all exertion via n/c DX J 44.9 1 Each 0 07/31/2022 Active Fluticasone Propionate 50 MCG/ACT Nasal Suspension (Flonase) Administer into each nostril 2 Sprays in the morning. 15.8 mL 2 09/22/2022 Active Rosuvastatin Calcium 20 MG Oral Tablet (Crestor)Indications: Cor pulmonale, chronic ([facility]),COPD, group D, by GOLD 2017 classification ([facility]),Hypertensive heart and kidney disease with chronic diastolic congestive heart failure and stage 3a chronic kidney disease ([facility]),Dyslipidemia,Es sential hypertension with goal blood pressure less than 140/90 Take by mouth 1 Tablet in the morning. 90 Tablet 3 09/22/2022 Active Empagliflozin 10 MG Oral Tablet (Jardiance)Indication s:Type 2 diabetes mellitus with stage 3a chronic kidney disease, without long-term current use of insulin ([facility]) Take 1 Tablet by mouth in the morning. 30 Tablet 11 11/22/2022 Active metFORMIN HCl 1000 MG Oral Tablet (Glucophage)Indicatio ns:Type 2 diabetes mellitus with stage 3a chronic kidney disease, without long-term current use of insulin ([facility]) Take 1 Tablet by mouth 2 times a day with morning and evening meals. 60 Tablet 5 11/22/2022 Active Azelastine HCl 0.1 % Nasal Solution (Astelin) Administer 1 [place] into nostril in the morning and 1 [place] before bedtime. 30 mL 12 01/12/2023 Active Furosemide 80 MG Oral Tablet (Lasix)Indications:Ge neralized osteoarthritis,Chroni c diastolic heart failure ([facility]) Take 1 Tablet by mouth in the morning and 1 Tablet before bedtime. 180 Tablet 3 03/26/2023 Active Potassium Chloride 20 MEQ Oral PacketIndications:Hyp okalemia Take 20 mEq by mouth in the morning. 30 Packet 5 05/30/2023 Active Trelegy Ellipta 100-62.5-25 MCG/ACT Aerosol Powder Breath Activated (Fluticasone-Umeclidi nium-Vilanterol) Inhale 1 Puff by mouth in the morning. 60 Each 6 05/31/2023 Active Vitamin D3 50 MCG (1999 UT) Oral CapsuleIndications:Vi tamin D deficiency Take 1 Capsule by mouth in the morning. 90 Capsule 1 06/21/2023 Active Cetirizine HCl 10 MG Oral CapsuleIndications:Vi ral URI with cough,Acute exacerbation of chronic obstructive [...] HFA 108 (90 Base) MCG/ACT Inhalation Aerosol SolutionIndications:C OPD, severe (HCC) Take 2 puffs every four hours as need for shortness of breath or wheezing 18 g 3 11/22/2023 Active Gabapentin 600 MG Oral Tablet (Neurontin)Indication s:Generalized osteoarthritis Take 1 Tablet by mouth in the morning and 1 Tablet before bedtime. 180 Tablet 3 12/27/2023 Active Eliquis 5 MG Oral TabletIndications:Per roxanne [...] 01/02/2024 Active predniSONE 20 MG Oral Tablet (Deltasone)Indication s:COPD exacerbation (HCC) Take 3 tabs for 3 days, 2 tabs for 3 days, 1 tab for 3 days, 1/2 tab for 3 days 20 Tablet 0 01/16/2024 Active Nicotine 21 MG/24HR Transdermal Patch 24 Hour (Nicoderm CQ)Indications:COPD exacerbation (HCC),Tobacco use disorder Place 1 Patch over 24 hours topically on the skin in the morning. On upper body/upper arm, change once a day for 6 weeks.. 42 Patch 1 01/18/2024 Active Albuterol Sulfate (2.5 MG/3ML) 0.083% Inhalation Nebulization Solution (Proventil)Indication s:COPD, group D, by GOLD 2017 classification ([facility]) Inhale 1 Vial via nebulizer every 4 hours as needed for Wheezing or Shortness of Breath. 180 mL 11 01/31/2024 Active Albuterol Sulfate (2.5 MG/3ML) 0.083% Inhalation Nebulization Solution (Proventil)Indication s:COPD, group D, by GOLD 2017 classification ([facility]) Inhale 1 Vial via nebulizer every 4 hours as needed for Wheezing or Shortness of Breath. 180 mL 11 01/31/2024 Active Hospital, Clinic, or Other Facility Administered Medication Ordered Dose Route Frequency Start Date End Date Status Albuterol Sulfate (Proventil) (5 MG/ML) 0.5% *conc* inhalation solution 2.5 mgIndications:COPD, severe ([facility]) 2.5 mg NEBULIZER PRN 10/15/2023 10/14/2024 Active documented as of this encounter (statuses as of 02/08/2024) Active Problems Problem Noted Date Diagnosed Date [...] - TRES o Class D - Inhaled Rbuopssxwbhkye-ENQW-OONZ Combination Inhaler (Trellegy) o PD-4 Inhibitor (Daliresp) [...] blood thinners? 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 Educated on use. Must call [facility] when initiated so further assessment can be made documented as of this encounter (statuses as of 02/08/2024) Immunizations Name Administration Dates Next Due COVID-19 mRNA, LNP-s, No Pre serve, 2-Dose Series (Moderna) 01/28/2021 Pneumococcal Conjugate Vacci ne, 20-valent ([id number]) 05/10/2022 Pneumococcal Polysaccharide PPV23 (Pneumovax) 11/17/2013 Seasonal [...] uit: Not Asked; Counseling Given: Not Answered Alcohol Use Standard Drinks/Week Comments No 0 [...] this encounter Progress Notes * Andrea Mcclendon, DO - 02/08/2024 8:00 AM EDT 02/08/24 Edna Kebede is a 63 year old patient here for IOL/rex. A/P: Cataract OU Needs [facility] given pulmonary status Recommend CE/IOL left eye first. Risks, benefits, and alternatives were discussed with the patient.Explained the elective nature of the procedure and that no surgery is without risk. Discussed the option of continued non-surgical management and risks of worsening disease. Explained goals of surgery. No promises made re: outcome. Discussed options including glasses, surgery, observation. All pertinent risks and benefits reviewed with patient, including but not limited to: posterior capsule rupture, need for anterior vitrectomy, dropped/retained lens material, pain, inflammation, infection, abnormal IOP, retinal tear, retinal detachment, bleeding, need for more treatment/surgery, permanent vision loss. Typical postop course discussed and explained potential need for adjustment based on clinical course. The patient verbalized understanding of options, risks/benefits/alternatives of options, and that all questions/concerns were addressed. The patient verbalized a desire to proceed for CE/IOL Indication for removal = visually-significant both eyes Indication for cataract removal explained to patient, as well as expected postoperative visual outcome in setting of the patient's specific overall ocular health. Dilates = Well Guttata = None PXF=None Retina = Stable by exam Flomax = Denies Claustrophobia = Denies Anesthesia = Mac/topical Hx of refractive procedure=Denies IOL Measurements = Today, aim for plano after discussion with patient, may need glasses c/o astigmatism GLH 4/9 OS 5/7 OD IOL interpretation = Biometry (IOL) & topography (if indicated) will be obtained in near futureto determine the intended refractive target for this patient. These choices will be reflected in the final selection of the intraocular lens at the time of surgery. Discussed options for surgical anesthesia and potential risks/benefits/alternatives of all options. Discussed need for post-operative drops. Discussed potential need for corrective lenses post-operatively. Discussed possible need for anterior vitrectomy Discussed need for post-operative laser procedure (Nd:YAG capsulotomy). Discussed other potential causes for current decreased visual acuity. The patient was strongly encouraged to call with any questions regarding surgery before and after. Dry Eyes, OU Lubrication PRN Diabetic Eye Exam -No evidence of Diabetic changes on anterior or posterior exam -Cont blood glucose control and HTN control -Explained pathophysiology of how diabetes affects eyes -RTC in 1 year for routine f/u Last performed 11/2023 Due next 11/2024 RTC DOS or sooner prn. A/P explained, patient verbalized understanding. Patient understands to f/u immediately with questions, concerns, or any ophthalmic issues. Andrea Mcclendon DO 02/08/24 documented in this encounter Nursing Notes * Penelope Gasca COT - 02/08/2024 8:08 AM EDT IOL measurements of both eyes completed and scanned into the electronic medical record. Please refer to operative report for interpretation. documented in this encounter Plan of Treatment Upcoming Encounters Date Type Department Care Team (Latest Contact Info) Description 02/13/2024 12:20 PM EDT Office Visit [facility] [address] [place] [phone] Letty Villegas CRNP [address] [place] [address] 02/26/2024 1:41 PM EDT Hospital Encounter OR [facility], Operating Room, [facility] - 4th Floor [address] [address] Andrea Mcclendon, DO [address] [place] [address] 02/26/2024 1:41 PM EDT - 02/26/2024 2:32 PM EDT Surgery OR [facility], Operating Room, [facility] - 4th Floor [address] [place] [address] Andrea Mcclendon, [address] [place] [address] LEFT EXTRACAPSULAR CATARACT REMOVAL WITH INTRAOCULAR LENS 02/27/2024 8:00 AM EDT Office Visit Ophthalmology, [place] [address] [place] [address] Andrea Mcclendon, [address] [place] [address] 03/05/2024 9:45 AM EDT Office Visit Ophthalmology, [place] [address] [place] [address] Andrea Mcclendon DO [address] [place] [address] 03/10/2024 8:30 PM EDT [facility], [address] [place] [address] [facility], Sleep Med Night Sleep [address] [place], [place] [address] [address] 03/25/2024 9:24 AM EDT Hospital Encounter OR [facility], Operating Room, [facility] - 4th Floor [address] [place] [address] Andrea Mcclendon, [address] [place] [address] 03/25/2024 9:24 AM EDT - 03/25/2024 10:15 AM EDT Surgery OR [facility], Operating Room, [facility] - 4th Floor [address] [place] [address] Andrea Mcclendon, [address] [place] [address] RIGHT EXTRACAPSULAR CATARACT REMOVAL WITH INTRAOCULAR LENS 03/26/2024 8:00 AM EDT Office Visit [facility] [place] [address] [place] [address] Andrea Mcclendon, [address] [place] [address] 04/02/2024 9:15 AM EDT Office Visit [facility] [place] [address] [place] [address] Andrea Mcclendon, [address] [place] [address] 04/25/2024 2:15 PM EDT Office Visit [facility] [place] [address] [place] [address] Andrea Mcclendon, [address] [place] [address] 06/18/2024 7:40 AM EDT Office Visit [facility] [address], [place] [place] [address] Piper Cazares, DO [address] [place] [address] 07/14/2024 1:00 PM EDT [facility] Pul[facility] Function Lab, [address] [place] [address] [facility], Pulm Function Room [address] [place] [address] 07/14/2024 2:00 PM EDT [facility] Pul[facility] Function Lab, [facility] [address] [place] [address] [place], Pulm Function Room [address] [place] [address] 07/23/2024 3:20 PM EDT Office Visit Pulmonary Medicine [place] [address] [place] [phone] Chance Zimmerman MD [address] [place] [address] Scheduled Procedures Name Priority Associated Diagnoses Date/Ti me EXTRACAPSULAR CATARACT REMOV AL WITH INTRAOCULAR LENS Cataract 02/26/2024 1:41 PM EDT EXTRACAPSULAR CATARACT REMOV AL WITH INTRAOCULAR LENS Cataract 03/25/2024 9:24 AM EDT Health Maintenance Due Date Last Done Comments Alpha-1 Antitrypsin 1976 Diabetic Foot Exam 1976 Cologuard 2003 Sigmoidoscopy 2003 Zoster Vaccines (1 of 2) 2008 Fecal Occult Blood Test 11/17/2014 11/17/2013 Mammogram 11/27/2018 11/27/2017, 12/0 04/2016, 12/05/2013 Colonoscopy 09/20/2020 09/20/2010 Colorectal Cancer Screening 09/20/2020 *ADVANCE DIRECTIVE NOT ON FILE 04/29/2022 Albumin/Creatinine Ratio 02/03/2023 02/03/2022, 06/19 Depression Screening 02/20/2023 02/20/2022 COVID-19 Vaccine ( - season) 2023 01/28/2021 DXA Scan 2023 DTaP,Tdap,and Td Vaccines (2 - Td or Tdap) 11/17/2023 11/17/2013 HbA1c 06/19/2024 12/20/2023, 08/20, 05/22/2023, Additional history exists GFR 06/22/2024 12/23/2023, 01/2024, 12/21/2023, Additional history exists DISCUSS TOBACCO CESSATION (REFER TO SMARTSET #8623) 10/15/2024 10/15/2023, 05/31/2023, 01/12/2023, Additional history exists Diabetic Eye Exam 12/10/2024 12/10/2023, , 12/10/2023, Additional history exists CKD PHOS USE SMARTSET 70114 12/19/202411/21, 09/12/2023, 05/21/2023, Additional history exists CKD HGB USE SMARTSET 36595 12/23/202412/23, 12/22/2023, 12/21/2023, Additional history exists O2 ASSESSMENT COMPLETED IN PAST YEAR FOR COPD 01/16/2025 01/16/2024 Lipid Panel 04/19/2027 04/19/2022, 12/21, 01/21/2021, Additional history exists Cervical Cancer Screening Discontinued Pap Smear Discontinued 10/10/2016, 10/21, 11/17/2013, Additional history exists Pneumococcal Vaccine: 65+ Years Completed 05/10/2022, 11/17/2013 LUNG CANCER SCREENING - USE SMARTSET 01254 Completed 09/09/2023, 05/22/2023, 12/15/2022, Additional history exists [...] Not on filedocumented as of this encounter Procedures Procedure Name Priority Date/Time Associated Diagnosis Comments COMPUTERIZED CORNEAL REX Routine 02/08/2024 Combined forms of age-related cataract of both eyes IOL MEASUREMENTS, IOL MASTER Routine 02/08/2024 Combined forms of age-related cataract of both eyes documented in this encounter Results * COMPUTERIZED CORNEAL REX (02/08/2024) Andrea Mcclendon DO MEDICINE Performing Organization Address City/[facility] Co de Phone Number [facility]PH[facility] * IOL MEASUREMENTS, IOL MASTER (02/08/2024) Andrea Mcclendon DO OTHER Performing Organization Address [facility] [[email or web address]] de Phone Number CONTINU[facility] OPHTH documented in this encounter Visit Diagnoses Diagnosis Combined forms of age-related cataract of both eyes- Primary Other and combined forms of senile cataract Cataract Unspecified cataract Cataract Unspecified cataract documented [...] the patient have Health Care Power of Filter Washer? No Bag Valve Device? Yes Intubation? No [...] Agents on File Name Relationship Healthcare Agent [facility] p Communication Martinez GRIGSBY Adult Child First Alternate Health Care Agent Peter Grigsby Adult Child First Alternate Health Care Agent Jazmine Corona Adult Child First Alternate Health Care Agent Care Teams Information And Data Architect Analyst Relationship Specialty Start Date End Date Marcos Maurice PA-C [address] [facility] [place] [address] PCP - General Physician Deposit Clerk 11/22/23 documented as of this encounter
--- OUTSIDE RECORDS SUMMARY | 2024-04-14 12:56 | External Medical Summary | Summary of Care ---
Author Name Unknown Organization [facility] Address [address] [place] [address] Phone [phone] Care Team Providers Care Machine Ceramic Coater Name Role Phone Josafat Marcosananda Caldwell PA-C Primary Care Provide r Reason for Visit * Reason Onset Date Comments Advice 01/31/2024 COPD exacerbatio n? Encounter Details Date Type Department Care Team (Late st Contact Info) Description 01/31/2024 Telephone Pulmonary Function Lab, [facility] [address] [place] [address] Debra Larsen, RESPIRATORY SCIENTIST Advice (COPD exacerbation? ) Allergies Active Allergy Reactions Criticality Noted Date Comments Cortisone Muscle pain Medium 04/09/2017 At site of shot Bee Venom Anaphylaxis High 06/25/2021 Hydrocortisone High 12/25/2021 Other reaction(s): PAIN,UNABLE TO MOVE documented as of this encounter (statuses as of 02/04/2024) Medications Medication Sig Dispensed Refills Start Date [...] MG Oral Tablet (Crestor)Indication s:Cor pulmonale, chronic ([facility]),COPD, group D, by GOLD 2017 classification ([facility]),Hypertensive heart and kidney disease with chronic diastolic congestive heart failure and stage 3a chronic kidney disease ([facility]),Dyslipidemia, Essential hypertension with goal blood pressure less than 140/90 Take by mouth 1 Tablet in the morning. 90 Tablet 3 09/22/2022 Active Empagliflozin 10 MG Oral Tablet (Jardiance)Indicati ons:Type 2 diabetes mellitus with stage 3a chronic kidney disease, without long-term current use of insulin ([facility]) Take 1 Tablet by mouth in the morning. 30 Tablet 11 11/22/2022 Active metFORMIN HCl 1000 MG Oral Tablet (Glucophage)Indicat ions:Type 2 diabetes mellitus with stage 3a chronic kidney disease, without long-term current use of insulin ([facility]) Take 1 Tablet by mouth 2 times a day with morning and evening meals. 60 Tablet 5 11/22/2022 Active Azelastine HCl 0.1 % Nasal Solution (Astelin) Administer 1 Eolia into nostril in the morning and 1 Eolia before bedtime. 30 mL 12 01/12/2023 Active Furosemide 80 MG Oral Tablet (Lasix)Indications: Generalized osteoarthritis,Refuge Worker kunal diastolic heart failure ([facility]) Take 1 Tablet by mouth in the [...] 06/21/2023 Active Cetirizine HCl 10 MG Oral CapsuleIndications: Viral URI with cough,Acute exacerbation of chronic obstructive pulmonary disease (COPD) ([facility]) Take 1 Capsule by mouth at bedtime. [...] 11/22/2023 Active Gabapentin 600 MG Oral Tablet (Neurontin)Indicati ons:Generalized osteoarthritis Take 1 Tablet by mouth in the morning and 1 Tablet before bedtime. 180 Tablet 3 12/27/2023 Active Eliquis 5 MG Oral TabletIndications:P ersonal [...] 01/02/2024 Active predniSONE 20 MG Oral Tablet (Deltasone)Indicati [...] ons:COPD, group D, by GOLD 2017 classification ([facility]) Inhale 1 Vial via nebulizer every 4 hours as needed for Wheezing or Shortness of Breath. 180 mL 11 01/31/2024 Active Albuterol Sulfate (2.5 MG/3ML) 0.083% Inhalation Nebulization Solution (Proventil)Indicati ons:COPD, group D, by GOLD 2017 classification ([facility]) Inhale 1 Vial via nebulizer every 4 hours as needed for Wheezing or Shortness of Breath. 180 mL 11 08/02/2023 Discontinue d(Refill) Hospital, Clinic, or Other Facility Administered Medication Ordered Dose Route Frequency Start Date End Date Status Albuterol Sulfate (Proventil) (5 MG/ML) 0.5% *conc* inhalation solution 2.5 mgIndications:COPD, severe (HCC) 2.5 mg NEBULIZER PRN 10/15/2023 10/14/2024 Active documented as of this encounter (statuses as of 02/04/2024) Active Problems Problem Noted Date Diagnosed Date [...] - TRES o Class D - Inhaled Ftfxntqvlbkjqn-PNSV-LXKY Combination Inhaler (Trellegy) o PD-4 Inhibitor (Daliresp) [...] oximeter to monitor SpO2, advised to contact [facility] if <90% and titrate as necessary, Tobacco use disorder 04/21/2021 Last Assessment & Plan: Referral to [facility] for assistance in getting nicoderm patches covered [...] Last Assessment & Plan: Currently followed by garage helper--not on any antihistamines currently, has follow up [...] as of this encounter (statuses as of 02/04/2024) Resolved Problems Problem Noted Date Diagnosed Date [...] - TRES o Class D - Inhaled Bjpoheplnkoubt-NKXP-OATR Combination Inhaler (Trellegy) o PD-4 Inhibitor (Daliresp) Self-Management plan o Prednisone 40mg daily for 5 days Rx o High frequency nebulizer treatments every 4-6 hours around the clock Exacerbation plan o Prednisone rescue kit Rescue kit given today. Educated on use. Must call [facility] when initiated so further assessment can be made documented as of this encounter (statuses as of 02/04/2024) Immunizations Name Administration Dates Next Due COVID-19 mRNA, LNP-s, No Pre serve, 2-Dose Series (Moderna) 01/28/2021 Pneumococcal Conjugate Vacci ne, 20-valent ([id number]) 05/10/2022 Pneumococcal Polysaccharide PPV23 (Pneumovax) 11/17/2013 Seasonal [...] encounter Miscellaneous Notes * Telephone Encounter - Chance Zimmerman MD - 02/04/2024 5:05 PM EDT Am happy she is better Likely a viral syndrome Thank you * Telephone Encounter - Yanelis Ghosh LPN - 02/04/2024 12:28 PM EDT I spoke with the patient and she states that she is feeling a little bit better. When she is on thePrednisone her breathing is really good, but as soon as it is finished she starts to feel more short of breath. I explained that Dr. Zimmerman would like her to have a respiratory PCR to make sure that she does not have a viral illness that is causing her shortness of breath. She said that she lives about [place] hour from our office so it would be very hard for her to come here for the swab. She will check with her PCP to see if they can collect the swab at their office if she decides to have it done. * Telephone Encounter - Brittney Cross LPN - 02/01/2024 8:33 AM EDT Called the pt and left a message for her to call the office back. * Addendum Note - Chance Zimmerman MD - 01/31/2024 4:25 PM EDTAddended by: CHANCE ZIMMERMAN on: 01/31/2024 04:25 PM Modules accepted: Orders * Telephone Encounter - Chance Zimmerman MD - 01/31/2024 4:22 PM EDT Signed Viral screen please Thank you * Addendum Note - Yanelis Ghosh LPN - 01/31/2024 3:21 PM EDTAddended by: YANELIS GHOSH on: 01/31/2024 03:21 PM Modules accepted: Orders * Telephone Encounter - Yanelis Ghosh LPN - 01/31/2024 3:13 PM EDT I spoke with Edna and she states that she has had some increased shortness of breath and clear nasal drainage the past 2 days, she feels that it is due to the change in weather. She denies increasedcough, fever, or chills. She is using her Albuterol inhaler with relief of her shortness of breath.She states that she is out of Albuterol neb solution and would like a refill sent to the pharmacy be cause that seems to work much better. * Telephone Encounter - Chance Zimmerman MD - 01/31/2024 1:08 PM EDT Please call the patient Let's see if we need further testing or just medications * Telephone Encounter - Debra Larsen, RESPIRATORY SCIENTIST - 01/31/2024 12:53 PM EDT F/U call made to patient on 01/29/24- Patient states -More sob today - thinks it may be the weather change - voiced increase in fatigue, a little wheeze. Cough and sputum are baseline. Has not been around anyone that is sick. No increase in weight. Recalled 01/30/24- LVM. Recalled today patient still not feeling well- c/o of increase sob, fatigue, cold symptoms- pt states that "she feels like she needs antibiotic and steroids- she does not want to end up in hospital "she did contact PCP but feels like she didn't get anywhere. Please advise patient. Thank you. documented in this encounter Plan of Treatment Upcoming Encounters Date Type Department Care Team (Latest Contact Info) Description 02/08/2024 8:00 AM EDT Office [facility] [address] [place] [address] Andrea Mcclendon DO [address] [place] [id number] Nurse [facility] [address] [place] [address] 02/13/2024 12:20 PM EDT Office Visit [facility] [place] [address] [place] [phone] Letty Villegas CRNP [address] [place] [address] 02/26/2024 1:41 PM EDT Hospital Encounter OR GL, Operating Room, [facility] - 4th Floor [address] [place] [address] Andrea Mcclendon DO [address] [address] 02/26/2024 1:41 PM EDT - 02/26/2024 2:32 PM EDT Surgery OR [facility], Operating Room, [facility] - 4th Floor [address] [place] [address] Andrea Mcclendon DO [address] [address] LEFT EXTRACAPSULAR CATARACT REMOVAL WITH INTRAOCULAR LENS 02/27/2024 8:00 AM EDT Office Visit [facility] [address] [address] Andrea Mcclendon DO [address] [address] 03/05/2024 9:45 AM EDT Office Visit [facility] [address] [place] [address] Andrea Mcclendon, DO [address] [address] 03/10/2024 8:30 PM EDT PulmDiagnostic Sleep Lab, [facility] [address] [place] [address] [facility], Sleep Med Night Sleep [address] [facility] [place] [address] 03/25/2024 9:24 AM EDT Hospital Encounter OR [facility], Operating Room, [facility] - 4th Floor [address] [facility] [place] [address] Andrea Mcclendon DO [address] [id number] 03/25/2024 9:24 AM EDT - 03/25/2024 10:15 AM EDT Surgery OR [facility], Operating Room, [facility] - 4th Floor [address] [facility] [place] [address] Andrea Mcclendon DO [address] [address] [address] RIGHT EXTRACAPSULAR CATARACT REMOVAL WITH INTRAOCULAR LENS 03/26/2024 8:00 AM EDT [place] [address] Andrea Mcclendon DO [address] [address] 04/02/2024 9:15 AM EDT [facility] [address] [address] Andrea Mcclendon, [address] [address] 04/25/2024 2:15 PM EDT [facility] [address] [facility] [place] [address] Andrea Mcclendon DO [facility] [place] [address] 06/18/2024 7:40 AM EDT Office [facility] [place] [address] [place] [address] Piper Cazares DO [address] [place] [address] 07/14/2024 1:00 PM EDT PulmDiagnostic Pulmonary Function Lab, [address] [place] [address] Gl, Pulm Function Room [address] [place] [address] 07/14/2024 2:00 PM EDT PulmDiagnostic Pulmonary Function Lab, [address] [address] [facility], Pulm Function Room [address] [place] [address] 07/23/2024 3:20 PM EDT Office Visit Pulmonary Medicine [place] [address] [id number] Chance Zimmerman MD [address] [place] [place] [address] Scheduled Orders Name Type Priority Associated Diagnoses Orde r Schedule RESPIRATORY PATHOGEN PANEL, PCR Lab Routine Complicated bronchitis Expected: 01/31/2024, Expires: 01/30/2025 Scheduled Procedures Name Priority Associated Diagnoses Date/Ti [...] Screening 02/20/2023 02/20/2022 COVID-19 Vaccine (2 - 2022- season) 2023 01/28/2021 DXA Scan 2023 DTaP,Tdap,and Td Vaccines (2 - Td or Tdap) 11/17/2023 11/17/2013 HbA1c 06/19/2024 12/20/2023, 08/20, 05/22/2023, Additional history exists GFR 06/22/2024 12/23/2023, 01/2024, 12/21/2023, Additional history exists DISCUSS TOBACCO CESSATION (REFER TO SMARTSET #4040) 10/15/2024 10/15/2023, 05/31/2023, 01/12/2023, Additional history exists Diabetic Eye Exam 12/10/2024 12/10/2023, , 12/10/2023, Additional history exists CKD PHOS USE SMARTSET 28655 12/19/202411/21, 09/12/2023, 05/21/2023, Additional history exists CKD HGB USE SMARTSET 31042 12/23/202412/23, 12/22/2023, 12/21/2023, Additional history exists O2 ASSESSMENT COMPLETED IN PAST YEAR FOR COPD 01/16/2025 01/16/2024 Lipid Panel 04/19/2027 04/19/2022, 12/21, 01/21/2021, Additional history exists Cervical Cancer Screening Discontinued Pap Smear Discontinued 10/10/2016, 10/21, 11/17/2013, Additional history exists Pneumococcal Vaccine: 65+ Years Completed 05/10/2022, 11/17/2013 LUNG CANCER SCREENING - USE SMARTSET 60456 Completed 09/09/2023, 05/22/2023, 12/15/2022, Additional history exists [...] as of this encounter Visit Diagnoses Diagnosis Complicated bronchitis- Primary Bronchitis, not specified as acute or chronic COPD, group D, by GOLD 2017 classification (HCC) Cataract Unspecified cataract Cataract Unspecified cataract [...] the patient have Health Care Power of Perinatal Educator? No Bag Valve Device? Yes Intubation? No [...] First Alternate Health Care Agent Care Teams Machine Ceramic Coater Relationship Specialty Start Date End Date Marcos Maurice PA-C [address] [facility] [place] [address] PCP - General Physician Personal Lines Insurance Agent 11/22/23 documented as of this encounter
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
--- OUTSIDE RECORDS SUMMARY | 2024-04-14 12:56 | External Medical Summary | Summary of Care ---
Author Name Unknown Organization [facility] Address [address] [place] [address] Phone [phone] Care Team Providers Care Breaker Boss Name Role Phone Marcos Maurice PA-C Primary Care Provide r Reason for Visit * Reason Onset Date Comments Med Request 01/31/2024 Encounter Details Date Type Department Care Team (Late st Contact Info) Description 01/[facility] [place] [address] Marcos Maurice PA-C [address] [facility] [place] [address] Med Request Allergies Active Allergy Reactions Criticality Noted Date [...] MG Oral Tablet (Crestor)Indications :Cor pulmonale, chronic ([facility]),COPD, group D, by GOLD 2017 classification ([facility]),Hypertensive heart and kidney disease with chronic diastolic congestive heart failure and stage 3a chronic kidney disease ([facility]),Dyslipidemia,E ssential hypertension with goal blood pressure less than 140/90 Take by mouth 1 Tablet in the morning. 90 Tablet 3 09/22/2022 Active Empagliflozin 10 MG Oral Tablet (Jardiance)Indicatio ns:Type 2 diabetes mellitus with stage 3a chronic kidney disease, without long-term current use of insulin ([facility]) Take 1 Tablet by mouth in the morning. 30 Tablet 11 11/22/2022 Active metFORMIN HCl 1000 MG Oral Tablet (Glucophage)Indicati ons:Type 2 diabetes mellitus with stage 3a chronic kidney disease, without long-term current use of insulin ([facility]) Take 1 Tablet by mouth 2 times a day with morning and evening meals. 60 Tablet 5 11/22/2022 Active Azelastine HCl 0.1 % Nasal Solution (Astelin) Administer 1 [place] into nostril in the morning and 1 [place] before bedtime. 30 mL 12 01/12/2023 Active Furosemide 80 MG Oral Tablet (Lasix)Indications:G eneralized osteoarthritis,Chron ic diastolic heart failure ([facility]) Take 1 Tablet by mouth [...] exacerbation of chronic obstructive pulmonary disease (COPD) ([facility]) Take 1 Capsule by mouth [...] 6 weeks.. 42 Patch 1 01/18/2024 Active Hospital, Clinic, or Other Facility Administered [...] - TRES o Class D - Inhaled Eogxuvlkukzdcr-QSPV-SXPE Combination Inhaler (Trellegy) o PD-4 Inhibitor (Daliresp) [...] to monitor SpO2, advised to contact [facility] if <90% and titrate as necessary, Tobacco use disorder 04/21/2021 Last Assessment & Plan: Referral to [facility] for assistance in getting nicoderm patches covered [...] Last Assessment & Plan: Currently followed by camp dining room attendant--not on any antihistamines currently, has follow [...] - TRES o Class D - Inhaled Kmaiqcrsdquwvi-UUUA-YMRT Combination Inhaler (Trellegy) o PD-4 Inhibitor (Daliresp) Self-Management plan o Prednisone 40mg daily for 5 days Rx o High frequency nebulizer treatments every 4-6 hours around the clock Exacerbation plan o Prednisone rescue kit Rescue kit given today. Educated on use. Must call [facility] when initiated so further assessment can be made documented as of this encounter (statuses as of 02/14/2024) Immunizations Name Administration Dates Next Due COVID-19 mRNA, LNP-s, No Pre serve, 2-Dose Series (Moderna) 01/28/2021 Pneumococcal Conjugate Vacci ne, 20-valent ([id number]) 05/10/2022 Pneumococcal Polysaccharide PPV23 (Pneumovax) 11/17/2013 Seasonal [...] Telephone Encounter - Marcos Maurice PA-C - 02/14/2024 9:59 AM EDT Pulmonary treating the patient. * Telephone Encounter - Betsy Choe well reactivator operator - 01/31/2024 11:57 AM EDT Caller requesting Prednisone and an antibiotic be prescribed for pt due to pt having difficulty breathing today. Please advise. Pt's pharmacy [facility] [address] [place] [address] [facility] Thank you, Betsy Choe Windmill Mechanic I [facility] ([facility])(formerly Telepharmacy) 01/31/2024,12:00 PM documented in this encounter Plan of Treatment Upcoming Encounters Date Type Department Care Team (Latest Contact Info) Description 02/26/2024 1:41 PM EDT Hospital Encounter OR [facility], Operating Room, [facility] - 4th Floor [address] [place] [address] Andrea Mcclendon DO [address] [place] [address] 02/26/2024 1:41 PM EDT - 02/26/2024 2:32 PM EDT Surgery OR [facility], Operating Room, [facility] - 4th Floor [address] [place] [address] Andrea Mcclendon DO [address] [place] [address] LEFT EXTRACAPSULAR CATARACT REMOVAL WITH INTRAOCULAR LENS 02/27/2024 8:00 [place] [address] Andrea Mcclendon DO [address] [place] [address] 03/05/2024 9:45 [place] [address] Andrea Mcclendon DO [address] [place] [address] 03/17/2024 12:30 PM [place] [address] 03/17/2024 2:00 PM EDT Appointment Paulo Guillen [address] [place] [address] 03/25/2024 9:24 AM EDT Hospital Encounter OR [facility], Operating Room, [facility] - 4th Floor [address] [place] [address] Andrea Mcclendon, [address] [place] [address] 03/25/2024 9:24 AM EDT - 03/25/2024 10:15 AM EDT Surgery OR [facility], Operating Room, [facility] - 4th Floor [address] [place] [address] Andrea Mcclendon, [address] [place] [address] RIGHT EXTRACAPSULAR CATARACT REMOVAL WITH INTRAOCULAR LENS 03/26/2024 8:00 AM EDT Office Visit OphthalmologyPratibha [address] [place] [address] Andrea Mcclendon, [address] [place] [address] 04/02/2024 9:15 AM EDT Office Visit Pratibha Casey [address] [place] [address] Andrea Mcclendon, [address] [place] [address] 04/25/2024 2:15 PM EDT Office Visit OphthalmologyPratibha [address] [place] [address] Andrea Mcclendon, [address] [place] [address] 06/18/2024 7:40 AM EDT Office Visit [facility] [place], [place] [address] [place] [id number] Piper Cazares DO [address] [facility] [place] [address] 07/14/2024 1:00 PM EDT PulmDiagnostic Pulmonary Function Lab, [facility] [address] Gl, Pulm Function Room 1 [address] [place] [address] 07/14/2024 2:00 PM EDT PulmDiagnostic Pulmonary Function Lab, [address] [place] [address] [facility], Pul Function Room 2 [address] [facility] [place] [address] 07/23/2024 3:20 PM EDT Office Visit Pulmonary Medicine [place] Pratibha Winter [address] [place] [phone] Chance Zimmerman MD [address] [place] [address] Scheduled Procedures Name Priority Associated Diagnoses Date/Ti [...] exists DISCUSS TOBACCO CESSATION (REFER TO SMARTSET #3967) 10/15/2024 10/15/2023, 05/31/2023, 01/12/2023, Additional history exists Diabetic Eye Exam 12/10/2024 12/10/2023, , 12/10/2023, Additional history exists CKD PHOS USE SMARTSET 61346 12/19/202411/21, 09/12/2023, 05/21/2023, Additional history exists CKD HGB USE SMARTSET 47249 12/23/202412/23, 12/22/2023, 12/21/2023, Additional history exists Diabetic Foot Exam 02/12/2025 02/13/2024 O2 ASSESSMENT COMPLETED IN PAST YEAR FOR COPD 02/12/2025 02/13/2024 Lipid Panel 04/19/2027 04/19/2022, 12/21, 01/21/2021, Additional history exists Cervical Cancer Screening Discontinued Pap Smear Discontinued 10/10/2016, 10/21, 11/17/2013, Additional history exists Pneumococcal Vaccine: 65+ Years Completed 05/10/2022, 11/17/2013 LUNG CANCER SCREENING - USE SMARTSET 74504 Completed 09/09/2023, 05/22/2023, 12/15/2022, Additional history exists [...] the patient have Health Care Power of Fish Hatchery Assistant? No Bag Valve Device? Yes Intubation? No [...] 05/21/2023 5:42 PM 05/25/2023 5:24 PM This o rder reflects the patients [...] Alternate Health Care Agent Care Teams Breaker Boss Relationship Specialty Start Date End Date Marcos Maurice PA-C [address] [place] [address] PCP - General Physician Green Inspector 11/22/23 documented as of this encounter
--- OUTSIDE RECORDS SUMMARY | 2024-04-14 12:56 | External Medical Summary | Summary of Care ---
Author Name Unknown Organization [facility] Address [address] [place] [address] Phone [phone] Care Team Providers Care Horse Racetrack Manager Name Role Phone Marcos Maurice PA-C Primary Care Provide r Reason for Visit * Reason Onset Date Comments Appointment 02/14/2024 Home Nursing Encounter Details Date Type Department Care Team (Late st Contact Info) Description [facility] [place] [address] Marcos Maurice PA-C [address] [facility] [place] [address] Appointment (Home Nursing) Allergies [...] (HCC),COPD, group D, by GOLD 2017 classification ([facility] [...] 0.1 % Nasal Solution (Astelin) Administer 1 [place] into nostril in the morning and 1 [place] before bedtime. 30 mL 12 01/12/2023 Active [...] - TRES o Class D - Inhaled Ldayvutfedzfja-RLDT-YDUQ Combination Inhaler (Trellegy) o PD-4 Inhibitor (Daliresp) [...] oximeter to monitor SpO2, advised to contact [facility] if <90% and titrate as necessary, Tobacco use disorder 04/21/2021 Last Assessment & Plan: Referral to [employer] for assistance in getting nicoderm patches covered [...] Last Assessment & Plan: Currently followed by flake miller wheat and oats--not on any antihistamines currently, has follow up [...] - TRES o Class D - Inhaled Xasyofleldybnk-HTMQ-WTHJ Combination Inhaler (Trellegy) o PD-4 Inhibitor (Daliresp) Self-Management plan o Prednisone 40mg daily for 5 days Rx o High frequency nebulizer treatments every 4-6 hours around the clock Exacerbation plan o Prednisone rescue kit Rescue kit given today. Educated on use. Must call [facility] when initiated so further assessment can be made documented as of this encounter (statuses as of 02/15/2024) Immunizations Name Administration Dates Next Due COVID-19 mRNA, LNP-s, No Pre serve, 2-Dose Series (Moderna) 01/28/2021 Pneumococcal Conjugate Vacci ne, 20-valent ([id number]) 05/10/2022 Pneumococcal Polysaccharide PPV23 (Pneumovax) 11/17/2013 Seasonal [...] AM EDT Home Nursing referral/info faxed to [facility]. They will contact pt directly with appt. [...] 02/26/2024 1:41 PM EDT Hospital Encounter OR [facility], Operating Room, [facility] - 4th Floor [address] [place] [address] Andrea Mcclendon DO [address] [place] [address] 02/26/2024 1:41 PM EDT - 02/26/2024 2:32 PM EDT Surgery OR [facility], Operating Room, [facility] - 4th Floor [address] [place] [address] Andrea Mcclendon DO [address] [place] [address] LEFT EXTRACAPSULAR CATARACT REMOVAL WITH INTRAOCULAR LENS 02/27/2024 8:00 AM EDT Office Visit Pratibha Casey [address] [place] [address] Andrea Mcclendon DO [address] [place] [address] 03/05/2024 9:45 AM EDT Office Visit Pratibha Casey [address] [place] [address] Andrea Mcclendon, [address] [place] [address] 03/17/2024 12:30 PM EDT Appointment Pratibha [place]illen [place] [address] 03/17/2024 2:00 PM EDT Appointment Radiology, [address] [address] 03/25/2024 9:24 AM EDT Hospital Encounter OR [facility], Operating Room, [facility] - 4th Floor [address] [facility] [place] [address] Andrea Mcclendon DO [address] [place] [address] 03/25/2024 9:24 AM EDT - 03/25/2024 10:15 AM EDT Surgery OR [facility], Operating Room, [facility] Floor [address] [place] [address] [place] [address] Andrea Mcclendon, [address] [place] [address] RIGHT EXTRACAPSULAR CATARACT REMOVAL WITH INTRAOCULAR LENS 03/26/2024 8:00 AM EDT Office Visit Ophthalmology, [place] [address] Andrea Mcclendon DO [address] [place] [address] 04/02/2024 9:15 [place] [address] Andrea Mcclendon, [address] [place] [address] 04/07/2024 8:30 PM EDT PulmDiagnostic Sleep Lab, [address] [place] [address] [facility], Sleep Med Night Sleep [address] [facility] [place] [address] 04/25/2024 2:15 PM EDT Office Visit [facility] [place] [address] [place] [address] Andrea Mcclendon DO [facility] [address] 06/18/2024 7:40 AM EDT Office Visit [facility] [place] [address] [facility] [place] [address] Piper Cazares DO [address] [facility] [place] [address] 07/14/2024 1:00 PM EDT PulmDiagnostic Pulmonary Function Lab, [address] [address] [facility], Pulm Function Room [address] [place], [place] [address] [address] 07/14/2024 2:00 PM EDT PulmDiagnostic Pulmonary Function Lab, [address] [address] [facility], Pulm Function Room [address] [place] [address] [place] [address] 07/23/2024 3:20 PM EDT [facility] [address] [place] [phone] Chance Zimmerman MD [address] [place] [address] Scheduled Procedures Name Priority Associated Diagnoses Date/Ti [...] exists DISCUSS TOBACCO CESSATION (REFER TO SMARTSET #2169) 10/15/2024 10/15/2023, 05/31/2023, 01/12/2023, Additional history exists Diabetic Eye Exam 12/10/2024 12/10/2023, , 12/10/2023, Additional history exists CKD PHOS USE SMARTSET 79105 12/19/202411/21, 09/12/2023, 05/21/2023, Additional history exists CKD HGB USE SMARTSET 26831 12/23/202412/23, 12/22/2023, 12/21/2023, Additional history exists Diabetic Foot Exam 02/12/2025 02/13/2024 O2 ASSESSMENT COMPLETED IN PAST YEAR FOR COPD 02/12/2025 02/13/2024 Lipid Panel 04/19/2027 04/19/2022, 12/21, 01/21/2021, Additional history exists Cervical Cancer Screening Discontinued Pap Smear Discontinued 10/10/2016, 10/21, 11/17/2013, Additional history exists Pneumococcal Vaccine: 65+ Years Completed 05/10/2022, 11/17/2013 LUNG CANCER SCREENING - USE SMARTSET 69275 Completed 09/09/2023, 05/22/2023, 12/15/2022, Additional history exists [...] the patient have Health Care Power of Drop Tester? No Bag Valve Device? Yes Intubation? No [...] Agents on File Name Relationship Healthcare Agent [facility] Martinez GRIGSBY Adult Child First Alternate Health Care Agent Peter Seb Adult Child First Alternate Health Care Agent Jazmine Corona Adult Child First Alternate Health Care Agent Care Teams Horse Racetrack Manager Relationship Specialty Start Date End Date Marcos Maurice PA-C [address] [facility] [place] [address] PCP - General Physician Transit Coach Operator 11/22/23 documented as of this encounter
--- OUTSIDE RECORDS SUMMARY | 2024-04-14 12:56 | External Medical Summary | Summary of Care ---
Author Name Unknown Organization [facility] Address [address] [place] [address] Phone [phone] Care Team Providers Care Metal Furniture Repairer Name Role Phone Marcos Maurice PA-C Primary Care Provide r Reason for Visit * Reason Onset Date Comments Appointment 02/14/2024 Home Nursing Encounter Details Date Type Department Care Team (Late st Contact Info) Description [facility]/14[facility] [place] [address] Marcos Maurice PA-C [address] [facility] [place] [address] Appointment (Home Nursing) [...] D, by GOLD 2017 classification ([facility]),Hypertensive heart and kidney disease with chronic diastolic congestive heart failure and stage 3a chronic kidney disease ([facility]),Dyslipidemia,E ssential hypertension with goal blood pressure less than 140/90 Take by mouth 1 Tablet in the morning. 90 Tablet 3 09/22/2022 Active Empagliflozin 10 MG Oral Tablet (Jardiance)Indicatio ns:Type 2 diabetes mellitus with stage 3a chronic kidney disease, without long-term current use of insulin ([facility]) Take 1 Tablet by mouth in the morning. 30 Tablet 11 11/22/2022 Active metFORMIN HCl 1000 MG Oral Tablet (Glucophage)Indicati ons:Type 2 diabetes mellitus with stage 3a chronic kidney disease, without long-term current use of insulin ([facility]) Take 1 Tablet by mouth 2 times a day with morning and evening meals. 60 Tablet 5 11/22/2022 Active Azelastine HCl 0.1 % Nasal Solution (Astelin) Administer 1 [place] into nostril in the morning and 1 [place] before bedtime. 30 mL 12 01/12/2023 Active [...] D, by GOLD 2017 classification ([facility]) Inhale 1 Vial via nebulizer every 4 hours as needed for Wheezing or Shortness of Breath. 180 mL 11 01/31/2024 Active Albuterol Sulfate (2.5 MG/3ML) 0.083% Inhalation Nebulization Solution (Proventil)Indicatio ns:COPD, group D, by GOLD 2017 classification ([facility]) Inhale 1 Vial via nebulizer every [...] - TRES o Class D - Inhaled Ugzmbtukvobdom-XVZN-QFMB Combination Inhaler (Trellegy) o PD-4 Inhibitor (Daliresp) [...] oximeter to monitor SpO2, advised to contact [facility] if <90% and titrate as necessary, Tobacco use disorder 04/21/2021 Last Assessment & Plan: Referral to [facility] for assistance in getting nicoderm patches covered [...] Last Assessment & Plan: Currently followed by pipe tester--not on any antihistamines currently, has follow up [...] couch") Medication Regimen o All Classes - RTES o Class D - Inhaled Cwcleloozhirda-SSCK-AYSB Combination Inhaler (Trellegy) o PD-4 Inhibitor (Daliresp) Self-Management plan o Prednisone 40mg daily for 5 days Rx o High frequency nebulizer treatments every 4-6 hours around the clock Exacerbation plan o Prednisone rescue kit Rescue kit given today. Educated on use. Must call [facility] when initiated so further assessment can be made documented as of this encounter (statuses as of 02/15/2024) Immunizations Name Administration Dates Next Due COVID-19 mRNA, LNP-s, No Pre serve, 2-Dose Series (Moderna) 01/28/2021 Pneumococcal Conjugate Vacci ne, 20-valent ([id number]) 05/10/2022 Pneumococcal Polysaccharide PPV23 (Pneumovax) 11/17/2013 Seasonal [...] encounter Miscellaneous Notes * Telephone Encounter - Therese Connolly OSA - 02/15/2024 9:21 AM EDT Anabel calling from [facility] to advise that they are unable to accept this home health referral as pt resides outside of their service area. * Telephone Encounter - Gladis Tellez OSA - 02/15/2024 9:00 AM EDT Home Nursing referral/info faxed to [facility]. They will contact pt directly with appt. [...] 02/26/2024 1:41 PM EDT Hospital Encounter OR [facility], Operating Room, [facility] - 4th Floor [address] [place] [address] Andrea Mcclendon DO [address] [place] [address] 02/26/2024 1:41 PM EDT - 02/26/2024 2:32 PM EDT Surgery OR [facility], Operating Room, [facility] - 4th Floor [address] [place] [address] Andrea Mcclendon DO [address] [place] [address] LEFT EXTRACAPSULAR CATARACT REMOVAL WITH INTRAOCULAR LENS 02/27/2024 8:00 AM [place] [address] Andrea Mcclendon, [address] [place] [address] 03/05/2024 9:45 AM EDT Office Visit Ophthalmology, [place] [address] [place] [address] Andrea Mcclendon, [address] [place] [address] 03/17/2024 12:30 PM EDT Appointment Radiology, [place] [address] [place] [address] 03/17/2024 2:00 PM EDT Appointment [address] [place] [address] 03/25/2024 9:24 AM EDT Hospital Encounter OR [facility], Operating Room, [facility] - 4th Floor [address] [facility] [place] [address] Andrea Mcclendon, [address] [place] [address] 03/25/2024 9:24 AM EDT - 03/25/2024 10:15 AM EDT Surgery OR [facility], Operating Room, [facility] - 4th Floor [address] [facility] [address] Andrea Mcclendon, [address] [place] [address] RIGHT EXTRACAPSULAR CATARACT REMOVAL WITH INTRAOCULAR LENS 03/26/2024 8:00 AM EDT Office Visit Ophthalmology, [place] [address] [place] [address] Andrea Mcclendon, [address] [place] [address] 04/02/2024 9:15 AM EDT Office Visit Ophthalmology, [place] [address] [place] [address] Andrea Mcclendon, [address] [place] [address] 04/07/2024 8:30 PM EDT PulmDiagnostic Sleep Lab, [address] [place] [address] [facility], Sleep Med Night Sleep [address] [place], [place] [address] [address] 04/25/2024 2:15 PM EDT Office Visit Carmela [place] [address] [place] [address] Andrea Mcclendon, [facility] [place] [address] 06/18/2024 7:40 AM EDT Office Visit [facility] [address], [place] [place] [address] Piper Cazares DO [address] [place] [address] 07/14/2024 1:00 PM EDT PulmDiagnostic Pulmonary Function Lab, [address] [place] [address] [facility], Pulm Function Room [address] [place], [place] [address] [address] 07/14/2024 2:00 PM EDT PulmDiagnostic Pulmonary Function Lab, [address] [place] [address] Gl, Pulm Function Room [address] [place], [place] [address] [address] 07/23/2024 3:20 PM EDT Office Visit Pulmonary Medicine Pratibha Anguiano [address] [place] [phone] Chance Zimmerman MD [address] [place] [address] Scheduled Procedures Name Priority Associated Diagnoses Date/Ti [...] history exists DISCUSS TOBACCO CESSATION (REFER TO [facility]UREN #0323) 10/15/2024 10/15/2023, 05/31/2023, 01/12/2023, Additional history exists Diabetic Eye Exam 12/10/2024 12/10/2023, , 12/10/2023, Additional history exists CKD PHOS USE SMARTSET 03714 12/19/202411/21, 09/12/2023, 05/21/2023, Additional history exists CKD HGB USE SMARTSET 68712 12/23/202412/23, 12/22/2023, 12/21/2023, Additional history exists Diabetic Foot Exam 02/12/2025 02/13/2024 O2 ASSESSMENT COMPLETED IN PAST YEAR FOR COPD 02/12/2025 02/13/2024 Lipid Panel 04/19/2027 04/19/2022, 12/21, 01/21/2021, Additional history exists Cervical Cancer Screening Discontinued Pap Smear Discontinued 10/10/2016, 10/21, 11/17/2013, Additional history exists Pneumococcal Vaccine: 65+ Years Completed 05/10/2022, 11/17/2013 LUNG CANCER SCREENING - USE SMARTSET 74683 Completed 09/09/2023, 05/22/2023, 12/15/2022, Additional history exists [...] the patient have Health Care Power of Mathematics Department Chair? No Bag Valve Device? Yes Intubation? No [...] First Alternate Health Care Agent Care Teams Metal Furniture Repairer Relationship Specialty Start Date End Date Marcos Maurice PA-C [address] [facility] [place] [address] PCP - General Physician Doors Prefitter 11/22/23 documented as of this encounter
--- OUTSIDE RECORDS SUMMARY | 2024-04-14 12:56 | External Medical Summary | Summary of Care ---
Author Name Unknown Organization [facility] Address [address] [place] [address] Phone [phone] Care Team Providers Care Lead Generation Specialist Name Role Phone Marcos Gamble PA-C Primary Care Provide r Reason for Referral * Evaluate & Treat - Unlimited Visits (Within 10 days (routine)) - Pending Review Specialty Diagnoses / Procedures Referred By Frantz herrera Referred To Contact HOME CARE / Home Care Diagnoses Chronic hypoxemic respiratory failure (HCC) COPD, group D, by GOLD 2017 classification (HCC) Lumbar degenerative disc disease Chronic diastolic heart failure (HCC) Marcos Gamble PA-C [address] [place] [address] Referral ID Status Reason Start Date Expiration Date Visits Requested Visits Authorized [id number] Pending Review Specialty Services Required 02/14/[phone] Question Answer Referral Priority Within 10 days (routine) Where should this appointment be scheduled? [facility] Reason for Visit * Reason Onset Date Comments Other 01/31/2024 Encounter Details Date Type Department Care Team (Late st Contact Info) Description 01/31/2024 Telephone Family [facility] [place] [address] [place] [address] Marcos Gamble PA-C [address] [place] [address] Other Allergies Active Allergy Reactions Criticality Noted Date [...] GOLD 2017 classification ([facility]),Chronic hypoxemic respiratory failure ([facility]) 2 LPM at bedtime & at rest & 3 LPM with all exertion via n/c DX J 44.9 1 Each 0 07/31/2022 Active Fluticasone Propionate 50 MCG/ACT Nasal Suspension (Flonase) Administer into each nostril 2 Sprays in the morning. 15.8 mL 2 09/22/2022 Active Rosuvastatin Calcium 20 MG Oral Tablet (Crestor)Indications :Cor pulmonale, chronic ([facility]),COPD, group D, by GOLD 2017 classification ([facility]),Hypertensive heart and kidney disease with chronic diastolic congestive heart failure and stage 3a chronic kidney disease ([facility]),Dyslipidemia,E ssential hypertension with goal blood [...] 0.1 % Nasal Solution (Astelin) Administer 1 Stratton into nostril in the morning and 1 [place] before bedtime. 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 Educated on use. Must call [facility] when initiated so further assessment can be made documented as of this encounter (statuses as of 02/14/2024) Immunizations Name Administration Dates Next Due COVID-19 mRNA, LNP-s, No Pre serve, 2-Dose Series (Moderna) 01/28/2021 Pneumococcal Conjugate Vacci ne, 20-valent (Ueournt24) 05/10/2022 Pneumococcal Polysaccharide PPV23 (Pneumovax) 11/17/2013 Seasonal [...] as of this encounter Miscellaneous Notes * Addendum Note - Marcos Gamble PA-C - 02/14/2024 9:59 AM EDTAddended by: MARCOS GAMBLE on: 02/14/2024 09:59 AM Modules accepted: Orders * Addendum Note - Paris Gutierrez LPN - 02/01/2024 12:02 PM EDTAddended by: PARIS GUTIERREZ on: 02/01/2024 12:02 PM Modules accepted: Orders * Telephone Encounter - Paris Gutierrez LPN - 02/01/2024 12:02 PM EDT Last OV 01/16/24, pending for review * Telephone Encounter - Anshu Shepherd payroll and benefits specialist - 01/31/2024 12:14 PM EDT Pt daughter called back stating that Dr Needs to send new Referral in for Home Nurse to be reinstated to go to pt home. Thank You, Anshu Shepherd [facility] [employer] Operator II [facility] (Formerly Telepharmacy) 01/31/2024, 12:15 PM * Telephone Encounter - Betsy Choe payroll and benefits specialist - 01/31/2024 12:01 PM EDT Caller stated pt's At Home Nurse is no longer coming to pt's house due to needing a referral.Lost connection with caller and tried to call her back but no one answered. Please advise. Caller can be reached at [phone]. Thank you, Betsy Choe An/Ssn 2 4 Operator I [facility] ([facility])(formerly Telepharmacy) 01/31/2024,12:05 PM documented in this encounter Plan of Treatment Upcoming Encounters Date Type Department Care Team (Latest Contact Info) Description 02/26/2024 1:41 PM EDT Hospital Encounter OR [facility], Operating Room, [facility] - 4th Floor [address] [place] [address] Andrea Mcclendon DO [address] [address] 02/26/2024 1:41 PM EDT - 02/26/2024 2:32 PM EDT Surgery OR [facility], Operating Room, [facility] - 4th Floor [address] [place] [address] Andrea Mcclendon DO [address] [place] [address] LEFT EXTRACAPSULAR CATARACT REMOVAL WITH INTRAOCULAR LENS 02/27/2024 8:00 AM [place] [address] Andrea Mcclendon DO [address] [place] [address] 03/05/2024 9:45 [place] [address] Andrea Mcclendon DO [address] [place] [address] 03/17/2024 12:30 PM [place] [address] 03/17/2024 2:00 PM EDT Appointment Paulo Guillen [address] [place] [address] 03/25/2024 9:24 AM EDT Hospital Encounter OR GL, Operating Room, [facility] - 4th Floor [address] [place] [address] Andrea Mcclendon, [address] [place] [address] 03/25/2024 9:24 AM EDT - 03/25/2024 10:15 AM EDT Surgery OR [facility], Operating Room, [facility] - 4th Floor [address] [place] [address] Andrea Mcclendon, [address] [place] [address] RIGHT EXTRACAPSULAR CATARACT REMOVAL WITH INTRAOCULAR LENS 03/26/2024 8:00 AM EDT Office Visit [facility] [place] [address] Andrea Mcclendon, [address] [place] [address] 04/02/2024 9:15 AM EDT Office Visit OphthalmologyPratibha [address] [place] [address] Andrea Mcclendon, [address] [place] [address] 04/25/2024 2:15 PM EDT Office Visit [facility] [place] [address] Andrea Mcclendon, [address] [place] [address] 06/18/2024 7:40 AM EDT Office Visit [facility] [address], [place] [address] [place] [address] Piper Cazares DO [address] [place] [address] 07/14/2024 1:00 PM EDT PulmDiagnostic Pulmonary Function Lab, [facility] [address] [facility] [address] [facility], Pulm Function Room 1 [address] [facility] [place] [place] [address] 07/14/2024 2:00 PM EDT PulmDiagnostic Pulmonary Function Lab, [facility] [address] [facility] [address] [facility], Pul Function Room 2 [address] [facility] [address] 07/23/2024 3:20 PM EDT Office Visit Pulmonary Medicine [place] [address] [place] [phone] Chance Zimmerman MD [address] [address] Scheduled Procedures Name Priority Associated Diagnoses Date/Ti me EXTRACAPSULAR CATARACT REMOV AL WITH INTRAOCULAR LENS Cataract 02/26/2024 1:41 PM EDT EXTRACAPSULAR CATARACT REMOV AL WITH INTRAOCULAR LENS Cataract 03/25/2024 9:24 AM EDT Scheduled Referrals Name Type Priority Associated Diagnoses Orde r Schedule HOME HEALTH REFERRAL OP Referral Within 10 days (routine) Chronic hypoxemic respiratory failure (HCC) COPD, group D, by GOLD 2017 classification (HCC) Lumbar degenerative disc disease Chronic diastolic heart failure (HCC) Ordered: 02/14/2024 Health Maintenance Due Date Last Done Comments [...] exists DISCUSS TOBACCO CESSATION (REFER TO SMARTSET #7980) 10/15/2024 10/15/2023, 05/31/2023, 01/12/2023, Additional history exists Diabetic Eye Exam 12/10/2024 12/10/2023, , 12/10/2023, Additional history exists CKD PHOS USE SMARTSET 45434 12/19/202411/21, 09/12/2023, 05/21/2023, Additional history exists CKD HGB USE SMARTSET 79648 12/23/202412/23, 12/22/2023, 12/21/2023, Additional history exists Diabetic Foot Exam 02/12/2025 02/13/2024 O2 ASSESSMENT COMPLETED IN PAST YEAR FOR COPD 02/12/2025 02/13/2024 Lipid Panel 04/19/2027 04/19/2022, 12/21, 01/21/2021, Additional history exists Cervical Cancer Screening Discontinued Pap Smear Discontinued 10/10/2016, 10/21, 11/17/2013, Additional history exists Pneumococcal Vaccine: 65+ Years Completed 05/10/2022, 11/17/2013 LUNG CANCER SCREENING - USE SMARTSET 97096 Completed 09/09/2023, 05/22/2023, 12/15/2022, Additional history exists [...] as of this encounter Visit Diagnoses Diagnosis Chronic hypoxemic respiratory failure (HCC)- Primary Chronic respiratory failure COPD exacerbation (HCC) Obstructive chronic bronchitis with exacerbation COPD, group D, by GOLD 2017 classification (HCC) Lumbar degenerative disc disease Degeneration of lumbar or lumbosacral intervertebral disc Chronic diastolic heart failure (HCC) Chronic diastolic heart failure Cataract Unspecified cataract Cataract Unspecified cataract documented [...] the patient have Health Care Power of Merchandise Clerk? No Bag Valve Device? Yes Intubation? No [...] First Alternate Health Care Agent Care Teams Lead Generation Specialist Relationship Specialty Start Date End Date Marcos Gamble PA-C [address] [facility] [place] [phone] PCP - General Physician Supervisor Fish Bait Processing 11/22/23 documented as of this encounter
--- OUTSIDE RECORDS SUMMARY | 2024-04-14 12:56 | External Medical Summary | Summary of Care ---
Author Name Unknown Organization [facility] Address [address] [place] [address] Phone [phone] Care Team Providers Care Apartment Maintenance Worker Name Role Phone Marcos Maurice PA-C Primary Care Provide r Reason for Visit * Reason Comments pre-op exam * Evaluate & Treat - Unlimited Visits (Within 10 days (routine)) - Authorized Specialty Diagnoses / Procedures Referred By Frantz herrera Referred To Contact Ophthalmology Diagnoses Type 2 diabetes mellitus with stage 3a chronic kidney disease, without long-term current use of insulin ([facility]) Marcos Maurice PA-C [address] [facility] [place] [address] Referral ID Status Reason Start Date Expiration Date Visits Requested Visits Authorized [id number] Authorized Specialty Services Required 06/21/2023 12/22/[phone] Encounter Details Date Type Department Care Team (Late st Contact Info) Description 02/08/2024 8:00 AM EDT Office Visit Ophthalmology, [place] [address] Andrea Mcclendon DO [place] [address] Nurse [place] Ophthalmology [place] [address] Combined forms of age-related cataract of both [...] D, by GOLD 2017 classification ([facility]),Chronic hypoxemic respiratory failure ([facility]) 2 LPM at bedtime & at rest & 3 LPM with all exertion via n/c DX J 44.9 1 Each 0 07/31/2022 Active Fluticasone Propionate 50 MCG/ACT Nasal Suspension (Flonase) Administer into each nostril 2 Sprays in the morning. 15.8 mL 2 09/22/2022 Active Rosuvastatin Calcium 20 MG Oral Tablet (Crestor)Indications: Cor pulmonale, chronic ([facility]),COPD, group D, by GOLD 2017 classification ([facility]),Hypertensive heart and kidney disease with chronic diastolic congestive heart failure and stage 3a chronic kidney disease ([facility]),Dyslipidemia,Es sential hypertension with goal blood pressure less [...] 0.1 % Nasal Solution (Astelin) Administer 1 [place] into nostril in the morning and 1 [place] before bedtime. 30 mL 12 01/12/2023 Active Furosemide 80 MG Oral Tablet (Lasix)Indications:Ge neralized osteoarthritis,Chroni c diastolic heart failure ([facility]) Take [...] s:COPD, group D, by GOLD 2017 classification ([facility]) Inhale 1 Vial via nebulizer every 4 hours as needed for Wheezing or Shortness of Breath. 180 mL 11 01/31/2024 Active Albuterol Sulfate (2.5 MG/3ML) 0.083% Inhalation Nebulization Solution (Proventil)Indication s:COPD, group D, by GOLD 2017 classification ([facility]) Inhale 1 Vial via nebulizer every 4 hours as needed for Wheezing or Shortness of Breath. 180 mL 11 01/31/2024 Active Hospital, Clinic, or Other Facility Administered Medication Ordered Dose Route Frequency Start Date End Date Status Albuterol Sulfate (Proventil) (5 MG/ML) 0.5% *conc* inhalation solution 2.5 mgIndications:COPD, severe ([facility]) 2.5 mg NEBULIZER PRN 10/15/2023 10/14/2024 Active [...] - TRES o Class D - Inhaled Edafqxdaktdpyh-KKHY-USUV Combination Inhaler (Trellegy) o PD-4 Inhibitor (Daliresp) [...] oximeter to monitor SpO2, advised to contact [facility] if <90% and titrate as necessary, Tobacco use disorder 04/21/2021 Last Assessment & Plan: Referral to [employer] for assistance in getting nicoderm patches covered [...] Last Assessment & Plan: 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 Educated on use. Must call [facility] when initiated so further assessment can be made documented as of this encounter (statuses as of 02/08/2024) Immunizations Name Administration Dates Next Due COVID-19 mRNA, LNP-s, No Pre serve, 2-Dose Series (Moderna) 01/28/2021 Pneumococcal Conjugate Vacci ne, 20-valent (Sypajqv26) 05/10/2022 Pneumococcal Polysaccharide PPV23 (Pneumovax) 11/17/2013 Seasonal [...] Description 02/13/2024 12:20 PM EDT [facility] [address] [place] [phone] Letty Villegas CRNP [address] [address] 02/26/2024 1:41 PM EDT Hospital Encounter OR [facility], Operating Room, [facility] - 4th Floor [address] [place] [address] Andrea Mcclendon, DO [address] [place] [address] [address] 02/26/2024 1:41 PM EDT - 02/26/2024 2:32 PM EDT Surgery OR [facility], Operating Room, [facility] - 4th Floor [address] [place] [address] Andrea Mcclendon, [address] [address] [address] LEFT EXTRACAPSULAR CATARACT REMOVAL WITH INTRAOCULAR LENS 02/27/2024 8:00 AM EDT Office Visit Ophthalmology, [place] [address] [place] [address] Andrea Mcclendon, [address] [place] [address] 03/05/2024 9:45 AM EDT Office Visit Ophthalmology, [place] [address] [address] Andrea Mcclendon DO [address] [place] [address] 03/10/2024 8:30 PM EDT PulmDiagnostic Sleep Lab, [address] [place] [address] [facility], Sleep Med Night Sleep [address] [place], [place] [address] [address] 03/25/2024 9:24 AM EDT Hospital Encounter OR [facility], Operating Room, [facility] - 4th Floor [address] [place] [address] Andrea Mcclendon, [address] [place] [address] 03/25/2024 9:24 AM EDT - 03/25/2024 10:15 AM EDT Surgery OR [facility], Operating Room, [facility] - 4th Floor [address] [place] [address] Andrea Mcclendon, [address] [place] [address] RIGHT EXTRACAPSULAR CATARACT REMOVAL WITH INTRAOCULAR LENS 03/26/2024 8:00 AM EDT Office Visit [place] [address] [address] [address] Andrea Mcclendon, [address] [place] [address] 04/02/2024 9:15 AM EDT Office Visit [place] [address] [address] [address] Andrea Mcclendon, [address] [place] [address] 04/25/2024 2:15 PM EDT Office Visit [place] [address] [address] [address] Andrea Mcclendon, [address] [place] [address] 06/18/2024 7:40 AM EDT Office Visit [facility] [address], [place] [address] [place] [address] Piper Cazares, DO [address] [place] [address] 07/14/2024 1:00 PM EDT PulmDiagnostic Pulmonary Function Lab, [address] [place] [address] [facility], Pulm Function Room 1 [address] [place] [address] 07/14/2024 2:00 PM EDT PulmDiagnostic Pulmonary Function Lab, [facility] [address] [place] [address] Gl[facility], [facility] [address] [facility] [address] 07/23/2024 3:20 PM EDT [facility] [address] [place] [address] [phone] Chance Zimmerman MD [address] [place] [address] Scheduled Orders Name Type Priority Associated Diagnoses Orde r Schedule COMPUTERIZED CORNEAL REX Procedures Routine Combined forms of age-related cataract of both eyes Ordered: 02/08/2024 Scheduled Procedures Name Priority Associated Diagnoses Date/Ti [...] exists DISCUSS TOBACCO CESSATION (REFER TO SMARTSET #5928) 10/15/2024 10/15/2023, 05/31/2023, 01/12/2023, Additional history exists Diabetic Eye Exam 12/10/2024 12/10/2023, , 12/10/2023, Additional history exists CKD PHOS USE SMARTSET 95164 12/19/202411/21, 09/12/2023, 05/21/2023, Additional history exists CKD HGB USE SMARTSET 74833 12/23/202412/23, 12/22/2023, 12/21/2023, Additional history exists O2 ASSESSMENT COMPLETED IN PAST YEAR FOR COPD 01/16/2025 01/16/2024 Lipid Panel 04/19/2027 04/19/2022, 12/21, 01/21/2021, Additional history exists Cervical Cancer Screening Discontinued Pap Smear Discontinued 10/10/2016, 10/21, 11/17/2013, Additional history exists Pneumococcal Vaccine: 65+ Years Completed 05/10/2022, 11/17/2013 LUNG CANCER SCREENING - USE SMARTSET 54356 Completed 09/09/2023, 05/22/2023, 12/15/2022, Additional history exists [...] the patient have Health Care Power of Relief Driller? No Bag Valve Device? Yes Intubation? No [...] First Alternate Health Care Agent Care Teams Apartment Maintenance Worker Relationship Specialty Start Date End Date Marcos Maurice PA-C [address] [facility] [place] [address] PCP - General Physician Line Helper 11/22/23 documented as of this encounter
--- OUTSIDE RECORDS SUMMARY | 2024-04-14 12:57 | External Medical Summary | Summary of Care ---
Author Name Unknown Organization [facility] Address [address] [place] [address] Phone [phone] Care Team Providers Care It Desktop Support Technician Name Role Phone Josafat Marcosananda Caldwell PA-C Primary Care Provide r Reason for Visit * Reason Onset Date Comments Advice 01/31/2024 COPD exacerbatio n? Encounter Details Date Type Department Care Team (Late st Contact Info) Description 01/31/2024 Telephone Pulmonary Function Lab, [facility] [address] [place] [address] Debra Larsen, KOSHER DIETARY SERVICE SUPERVISOR Advice (COPD exacerbation? ) Allergies Active Allergy [...] MG Oral Tablet (Crestor)Indication s:Cor pulmonale, chronic ([facility]),COPD, group D, by GOLD 2017 classification ([facility]),Hypertensive heart and kidney disease with chronic diastolic congestive heart failure and stage 3a chronic kidney disease ([facility]),Dyslipidemia, Essential hypertension with goal blood pressure less than 140/90 Take by mouth 1 Tablet in the morning. 90 Tablet 3 09/22/2022 Active Empagliflozin 10 MG Oral Tablet (Jardiance)Indicati ons:Type 2 diabetes mellitus with stage 3a chronic kidney disease, without long-term current use of insulin ([facility]) Take 1 Tablet by mouth in the morning. 30 Tablet 11 11/22/2022 Active metFORMIN HCl 1000 MG Oral Tablet (Glucophage)Indicat ions:Type 2 diabetes mellitus with stage 3a chronic kidney disease, without long-term current use of insulin ([facility]) Take 1 Tablet by mouth 2 times a day with morning and evening meals. 60 Tablet 5 11/22/2022 Active Azelastine HCl 0.1 % Nasal Solution (Astelin) Administer 1 Elmer into nostril in the morning and 1 Elmer before bedtime. 30 mL 12 01/12/2023 Active Furosemide 80 MG Oral Tablet (Lasix)Indications: Generalized osteoarthritis,Flake Drier kunal diastolic heart failure ([facility]) Take 1 Tablet by mouth in the [...] exacerbation of chronic obstructive pulmonary disease (COPD) ([facility]) Take 1 Capsule by mouth at bedtime. [...] ons:COPD, group D, by GOLD 2017 classification ([facility]) Inhale 1 Vial via nebulizer every 4 hours as needed for Wheezing or Shortness of Breath. 180 mL 11 01/31/2024 Active Albuterol Sulfate (2.5 MG/3ML) 0.083% Inhalation Nebulization Solution (Proventil)Indicati ons:COPD, group D, by GOLD 2017 classification ([facility]) Inhale 1 Vial via nebulizer every 4 [...] - TRES o Class D - Inhaled Qujjpruetqxxnp-XEAL-LWGR Combination Inhaler (Trellegy) o PD-4 Inhibitor (Daliresp) [...] 04/21/2021 Last Assessment & Plan: Referral to [employer] for assistance in getting nicoderm patches covered [...] Assessment & Plan: Currently followed by medical coding auditor--not on any antihistamines currently, has follow up [...] - TRES o Class D - Inhaled Azhkjmfojeprdh-YVRP-ENLZ Combination Inhaler (Trellegy) o PD-4 Inhibitor (Daliresp) [...] (Moderna) 01/28/2021 Pneumococcal Conjugate Vacci ne, 20-valent ([id number]) 05/10/2022 Pneumococcal Polysaccharide PPV23 (Pneumovax) 11/17/2013 Seasonal [...] encounter Miscellaneous Notes * Telephone Encounter - Yanelis Ghosh LPN [...] Modules accepted: Orders * Telephone Encounter - Chanec Zimmerman MD - 01/31/2024 4:22 PM EDT [...] medications * Telephone Encounter - Debra Larsen, SANDEEP - 01/31/2024 12:53 PM EDT F/U call [...] Description 02/08/2024 8:00 AM EDT Office Visit [facility]ha [place] [address] Andrea Mcclendon, [place] [address] Nurse [facility] [address] [place] [address] 02/13/2024 12:20 PM EDT Office Visit [facility] [place] [address] [place] [phone] Letty Villegas CRNP [address] [place] [address] 02/26/2024 1:41 PM EDT Hospital Encounter OR GL, Operating Room, [facility] - 4th Floor [address] [facility] [place] [address] Andrea Mcclendon DO [address] [place] [address] 02/26/2024 1:41 PM EDT - 02/26/2024 2:32 PM EDT Surgery OR [facility], Operating Room, [facility] - 4th [facility] [address] Andrea Mcclendon DO [address] [place] [address] LEFT EXTRACAPSULAR CATARACT REMOVAL WITH INTRAOCULAR LENS 02/27/2024 8:00 AM EDT Office Visit [facility] [place] [address] [place] [address] Andrea Mcclendon DO [address] [place] [address] 03/05/2024 9:45 [place] [address] Andrea Mcclendon DO [address] [place] [address] 03/10/2024 8:30 PM EDT PulmDiagnostic Sleep Lab, [address] [place] [address] [facility], Sleep Med Night Sleep [address] [place] [address] 03/25/2024 9:24 AM EDT Hospital Encounter OR [facility], Operating Room, [facility] - 4th Floor [address] [place] [address] Andrea Mcclendon, [address] [place] [address] 03/25/2024 9:24 AM EDT - 03/25/2024 10:15 AM EDT Surgery OR [facility], Operating Room, [facility] - 4th Floor [address] [address] Andrea Mcclendon, [address] [place] [address] RIGHT EXTRACAPSULAR CATARACT REMOVAL WITH INTRAOCULAR LENS 03/26/2024 8:00 AM EDT Office Visit [place] [address] [place] [address] Andrea Mcclendon, [address] [place] [address] 04/02/2024 9:15 AM EDT Office Visit [place] [address] [place] [address] Andrea Mcclendon, [address] [place] [address] 04/25/2024 2:15 PM EDT Office Visit Pratibha Casey [address] [place] [address] Andrea Mcclendon, [address] [place] [address] 06/18/2024 7:40 AM EDT Office Visit [facility] [address], [address] [place] [address] Piper Cazares DO [address] [place] [address] 07/14/2024 1:00 PM EDT PulmDiagnostic Pulmonary Function Lab, [address] [address] Gl, Pulm Function Room 1 [address] [place] [address] 07/14/2024 2:00 PM EDT PulmDiagnostic Pulmonary Function Lab, [address] [address] [facility], Pulm Function Room 2 [address] [place] [address] 07/23/2024 3:20 PM EDT [facility] [address] [place] [phone] Chance Zimmerman MD [address] [place] [address] Scheduled Orders Name Type Priority Associated Diagnoses [...] Additional history exists CKD PHOS USE SMARTSET 67932 12/19/202411/21, 09/12/2023, 05/21/2023, Additional history exists CKD HGB USE SMARTSET 36241 12/23/202412/23, 12/22/2023, 12/21/2023, Additional history exists O2 ASSESSMENT COMPLETED IN PAST YEAR FOR COPD 01/16/2025 01/16/2024 Lipid Panel 04/19/2027 04/19/2022, 12/21, 01/21/2021, Additional history exists Cervical Cancer Screening Discontinued Pap Smear Discontinued 10/10/2016, 10/21, 11/17/2013, Additional history exists Pneumococcal Vaccine: 65+ Years Completed 05/10/2022, 11/17/2013 LUNG CANCER SCREENING - USE SMARTSET 06706 Completed 09/09/2023, 05/22/2023, 12/15/2022, Additional history exists [...] the patient have Health Care Power of Nail Maker? No Bag Valve Device? Yes Intubation? No [...] First Alternate Health Care Agent Care Teams It Desktop Support Technician Relationship Specialty Start Date End Date Marcos Maurice PA-C [facility] [place] [address] PCP - General Physician [employer] 11/22/23 documented as of this encounter
--- OUTSIDE RECORDS SUMMARY | 2024-04-14 12:57 | External Medical Summary | Summary of Care ---
Author Name Unknown Organization [facility] Address [address] [place] [address] Phone [phone] Care Team Providers Care Home Energy Rater Name Role Phone Josafat Marcosananda Caldwell PA-C Primary Care Provide r Reason for Visit * Reason Onset Date Comments Advice 01/31/2024 COPD exacerbatio n? Encounter Details Date Type Department Care Team (Late st Contact Info) Description 01/31/2024 Telephone Pulmonary Function Lab, [facility] [address] [place] [address] Debra Larsen, ADMINISTRATION VICE PRESIDENT Advice (COPD exacerbation? ) Allergies Active Allergy Reactions Criticality Noted Date Comments Cortisone Muscle pain Medium 04/09/2017 At site of shot Bee Venom Anaphylaxis High 06/25/2021 Hydrocortisone High 12/25/2021 Other reaction(s): PAIN,UNABLE TO MOVE documented as of this encounter (statuses as of 02/01/2024) Medications Medication Sig Dispensed Refills Start Date [...] Tablet (Crestor)Indication s:Cor pulmonale, chronic ([facility]),COPD, group D, by GOLD 2017 classification ([facility]),Hypertensive heart and kidney disease with chronic diastolic congestive heart failure and stage 3a chronic kidney disease ([facility]),Dyslipidemia, Essential hypertension with goal blood pressure less than 140/90 Take by mouth 1 Tablet in the morning. 90 Tablet 3 09/22/2022 Active Empagliflozin 10 MG Oral Tablet (Jardiance)Indicati ons:Type 2 diabetes mellitus with stage 3a chronic kidney disease, without long-term current use of insulin ([facility]) Take 1 Tablet by mouth in the morning. 30 Tablet 11 11/22/2022 Active metFORMIN HCl 1000 MG Oral Tablet (Glucophage)Indicat ions:Type 2 diabetes mellitus with stage 3a chronic kidney disease, without long-term current use of insulin ([facility]) Take 1 Tablet by mouth 2 times a day with morning and evening meals. 60 Tablet 5 11/22/2022 Active Azelastine HCl 0.1 % Nasal Solution (Astelin) Administer 1 Sulligent into nostril in the morning and 1 Sulligent before bedtime. 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 180 mL 11 01/31/2024 Active Albuterol Sulfate (2.5 MG/3ML) 0.083% Inhalation Nebulization Solution (Proventil)Indicati ons:COPD, group D, by GOLD 2017 classification ([facility]) Inhale 1 Vial via nebulizer [...] as of this encounter (statuses as of 02/01/2024) Active Problems Problem Noted Date Diagnosed Date [...] - TRES o Class D - Inhaled Djbpghdzfkiark-LYZV-IXNA Combination Inhaler (Trellegy) o PD-4 Inhibitor (Daliresp) [...] 04/21/2021 Last Assessment & Plan: Referral to [employer] for assistance in getting nicoderm patches covered [...] Last Assessment & Plan: 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 Educated on use. Must call [facility] when initiated so further assessment can be made documented as of this encounter (statuses as of 02/01/2024) Immunizations Name Administration Dates Next Due COVID-19 mRNA, LNP-s, No Pre serve, 2-Dose Series (Moderna) 01/28/2021 Pneumococcal Conjugate Vacci ne, 20-valent ([id number]) 05/10/2022 Pneumococcal Polysaccharide PPV23 (Pneumovax) 11/17/2013 Seasonal [...] encounter Miscellaneous Notes * Telephone Encounter - Brittney Cross LPN [...] Office Visit Pratibha Casey [address] [place] [id number] Andrea Mcclendon, [address] [place] [address] Nurse [facility] Ophthal[facility] [address] [place] [address] 02/13/2024 12:20 PM EDT Office Visit [facility] Pratibha Juarez [address] [place] [phone] Letty Villegas CRNP [address] [place] [address] 02/26/2024 1:41 PM EDT Hospital Encounter OR GL, Operating Room, [facility] - 4th Floor 400 [facility] [place] [address] Andrea Mcclendon, [address] [place] [address] 02/26/2024 1:41 PM EDT - 02/26/2024 2:32 PM EDT Surgery OR GL, Operating Room, [facility] - 4th Floor [address] [facility] [address] Andrea Mcclendon, [address] [place] [address] LEFT EXTRACAPSULAR CATARACT REMOVAL WITH INTRAOCULAR LENS 02/27/2024 8:00 AM EDT Office Visit [place], [place] [facility] [place] [address] Andrea Mcclendon DO [address] [place] [address] 03/05/2024 9:45 AM EDT Office Visit Carmela [place] [address] [place] [address] Andrea Mcclendon DO [address] [place] [address] 03/10/2024 8:30 PM EDT PulmDiagnostic Sleep Lab, [address] [place] [address] [facility], Sleep Med Night Sleep [address] [place], [place] [address] [address] 03/25/2024 9:24 AM EDT Hospital Encounter OR [facility], Operating Room, [facility] - [address] [place] [address] [address] [place] [address] Andrea Mcclendon DO [address] [place] [address] 03/25/2024 9:24 AM EDT - 03/25/2024 10:15 AM EDT Surgery OR GL, Operating Room, [facility] [address] [place], [place] [address] [address] Andrea Mcclendon, DO [address] [place] [address] RIGHT EXTRACAPSULAR CATARACT REMOVAL WITH INTRAOCULAR LENS 03/26/2024 8:00 AM EDT Office Visit Ophthalmology, [place] [address] [place] [address] Andrea Mcclendon, DO [address] [place] [address] 04/02/2024 9:15 AM EDT Office Visit Bear [place] [address] [place] [address] Andrea Mcclendon, DO [address] [place] [address] 04/25/2024 2:15 PM EDT Office Visit Bear [place] [address] [place] [address] Andrea Mcclendon, DO [address] [place] [address] 06/18/2024 7:40 AM EDT Office Visit [facility] [address], [place] [address] [facility] [place] [address] Piper Cazares, DO [address] [place] [address] 07/14/2024 1:00 PM EDT PulmDiagnostic Pulmonary Function Lab, [facility] [address] [place] [address] Gl, Pulm Function Room 1 [address] [place] [address] 07/14/2024 2:00 PM EDT PulmDiagnostic Pulmonary Function Lab, [facility] [address] [place] [address] [facility], Pulm Function Room 2 [address] [place] [address] 07/23/2024 3:20 PM EDT Office Visit Pulmonary Medicine Pratibha Anguiano [address] [place] [phone] Chance Zimmerman MD [address] [place] [address] Scheduled Orders Name Type Priority Associated Diagnoses [...] Additional history exists CKD PHOS USE SMARTSET 31381 12/19/202411/21, 09/12/2023, 05/21/2023, Additional history exists CKD HGB USE SMARTSET 40292 12/23/202412/23, 12/22/2023, 12/21/2023, Additional history exists O2 ASSESSMENT COMPLETED IN PAST YEAR FOR COPD 01/16/2025 01/16/2024 Lipid Panel 04/19/2027 04/19/2022, 12/21, 01/21/2021, Additional history exists Cervical Cancer Screening Discontinued Pap Smear Discontinued 10/10/2016, 10/21, 11/17/2013, Additional history exists Pneumococcal Vaccine: 65+ Years Completed 05/10/2022, 11/17/2013 LUNG CANCER SCREENING - USE SMARTSET 05064 Completed 09/09/2023, 05/22/2023, 12/15/2022, Additional history exists [...] the patient have Health Care Power of Pan Cleaner? No Bag Valve Device? Yes Intubation? [...] Adult Child First Alternate Health Care Agent Peterlucrecia Valetz Adult Child First Alternate Health Care Agent Jazmine Corona Adult Child First Alternate Health Care Agent Care Teams Home Energy Rater Relationship Specialty Start Date End Date Marcos Maurice PA-C [address] [facility] [place] [phone] PCP - General Physician General Education Professor 11/22/23 documented as of this encounter
--- OUTSIDE RECORDS SUMMARY | 2024-04-14 12:57 | External Medical Summary | Summary of Care ---
Author Name Unknown Organization [facility] Address [address] [place] [address] Phone [phone] Care Team Providers Care Machine Spreader Name Role Phone Marcos Gamble PA-C Primary Care Provide r Reason for Visit * Reason Onset Date Comments Medication Refill 01/31/2024 Encounter Details Date Type Department Care Team (Late st Contact Info) Description 01/31/2024 Refill [facility] [address] [place] [address] Marcos Gamble PA-C [address] [place] [address] COPD, group D, by GOLD 2017 classification ([facility]) Allergies Active Allergy Reactions Criticality Noted Date Comments Cortisone Muscle pain Medium 04/09/2017 At site of shot Bee Venom Anaphylaxis High 06/25/2021 Hydrocortisone High 12/25/2021 Other reaction(s): PAIN,UNABLE TO MOVE documented as of this encounter (statuses as of 01/31/2024) Medications Medication Sig Dispensed Refills Start Date End Date Status Acetaminophen 500 MG Oral Tablet (Tylenol) Take 1 Tablet by mouth every 6 hours as needed. 0 Active oxygen IN GASIndications:COPD , group D, by GOLD 2017 classification ([facility]),Chronic hypoxemic respiratory failure (HCC) 2 LPM at [...] (HCC),COPD, group D, by GOLD 2017 classification ([facility]),Hypertensive heart and kidney disease with chronic diastolic congestive heart failure and stage 3a chronic kidney disease ([facility]),Dyslipidemia, Essential hypertension with goal blood pressure less than 140/90 Take by mouth 1 Tablet in the morning. 90 Tablet 3 09/22/2022 Active Empagliflozin 10 MG Oral Tablet (Jardiance)Indicati ons:Type 2 diabetes mellitus with stage 3a chronic kidney disease, without long-term current use of insulin ([facility]) Take 1 Tablet by mouth in the morning. 30 Tablet 11 11/22/2022 Active metFORMIN HCl 1000 MG Oral Tablet (Glucophage)Indicat ions:Type 2 diabetes mellitus with stage 3a chronic kidney disease, without long-term current use of insulin ([facility]) Take 1 Tablet by mouth 2 times a day with morning and evening meals. 60 Tablet 5 11/22/2022 Active Azelastine HCl 0.1 % Nasal Solution (Astelin) Administer 1 [place] into nostril in the morning and 1 [place] before bedtime. 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 180 mL 11 01/31/2024 Active Albuterol Sulfate (2.5 MG/3ML) 0.083% Inhalation Nebulization Solution (Proventil)Indicati ons:COPD, group D, by GOLD 2017 classification ([facility]) Inhale 1 Vial via nebulizer [...] as of this encounter (statuses as of 01/31/2024) Active Problems Problem Noted Date Diagnosed Date [...] - TRES o Class D - Inhaled Znxocbpxxgeiac-UFMH-MLXO Combination Inhaler (Trellegy) o PD-4 Inhibitor (Daliresp) [...] 04/21/2021 Last Assessment & Plan: Referral to [employer] for assistance in getting nicoderm patches covered [...] Last Assessment & Plan: Currently followed by diagnostics sales developer--not on any antihistamines currently, has follow up [...] as of this encounter (statuses as of 01/31/2024) Resolved Problems Problem Noted Date Diagnosed Date [...] - TRES o Class D - Inhaled Rolqqgqbcylghy-MKSO-FSCM Combination Inhaler (Trellegy) o PD-4 Inhibitor (Daliresp) Self-Management plan o Prednisone 40mg daily for 5 days Rx o High frequency nebulizer treatments every 4-6 hours around the clock Exacerbation plan o Prednisone rescue kit Rescue kit given today. Educated on use. Must call [facility] when initiated so further assessment can be made documented as of this encounter (statuses as of 01/31/2024) Immunizations Name Administration Dates Next Due COVID-19 mRNA, LNP-s, No Pre serve, 2-Dose Series (Moderna) 01/28/2021 Pneumococcal Conjugate Vacci ne, 20-valent ([id number]) 05/10/2022 Pneumococcal Polysaccharide PPV23 (Pneumovax) 11/17/2013 Seasonal [...] encounter Miscellaneous Notes * Telephone Encounter - Ofelia Christian, [facility] - 01/31/2024 3:31 PM EDTSigned Prescriptions: Disp Refills Albuterol Sulfate (2.5 MG/3ML) 0.083% Inha*180 mL 11 Sig: Inhale1 Vial via nebulizer every 4 hours as needed for Wheezing or Shortness of Breath.Authorizing Provider: MARCOS GAMBLE User: OFELIA CHRISTIAN * Telephone Encounter - Brandee Mejía, copper pl[employer] - 01/31/2024 3:06 PM EDT Pt is out of rx and pharmacy needs refills. Did you pend patient's preferred pharmacy and medication before forwarding?yes Pharmacy: [facility] [address] [place] [address] [place] Pending Prescriptions: Disp Refills Albuterol Sulfate (2.5 MG/3ML) 0.083% Inh*180 mL 11 Sig: Inhale 1 Vial via nebulizer every 4 hours as needed for Wheezing or Shortness of Breath. Last Visit: 01/16/2024 (in office), 01/28/2021 (telemedicine) Next Visit: 06/18/2024 If no future appointments scheduled, and last appointment is greater than a year ago, please schedule patient for a follow-up appointment Last date the medication was ordered: 08/02/2023 Is this request for a controlled substance?No Urine Drug Screen:No results found. However, due to the size of the patient record, not all encounters were searched. Please check Results Review for a complete set of results. Patient Phone Numbers Labs: Lab Results Component Value Date/Time CREAT 1.3 (H) 12/23/2023 03:27 AM CREAT 0.90 11/18/2023 12:00 AM CREAT 0.9 05/30/2019 01:57 PM POTASSIUM 3.4 (L) 12/23/2023 03:27 AM POTASSIUM 3.5 (A) 11/18/2023 12:00 AM POTASSIUM 4.1 05/30/2019 01:57 PM TSH 3.00 01/13/2022 03:00 PM TSH 3.08 01/13/2022 03:00 PM TSH 2.73 01/10/2016 09:21 AM LDLCALC 190 (H) 04/19/2022 04:08 AM LDLCALC 136 (H) 07/05/2017 09:35 AM LDLDIRECT NOT APPLICABLE 07/05/2017 09:35 AM LDLDIRECT 172 (H) 01/10/2016 09:21 AM ALT 12 12/19/2023 12:36 PM ALT 16 05/30/2019 01:57 PM HGBA1C 8.0 (H) 12/20/2023 05:03 AM HGBA1C 5.7 (H) 05/30/2019 01:57 PM documented in this encounter Plan of Treatment Upcoming Encounters Date Type Department Care Team (Latest Contact Info) Description 02/08/2024 8:00 AM EDT Office Visit Ophthalmology, [place] [address] [place] [address] Andrea Mcclendon DO [address] [address] Nurse [facility] Ophthalmology [address] [address] 02/13/2024 12:20 PM EDT Office Visit Family [facility], [place] [address] [phone] Letty Villegas CRNP [address] [place] [address] [address] 02/26/2024 1:41 PM EDT Hospital Encounter OR [facility], Operating Room, [facility] - 4th Floor [address] [facility] [place] [address] Andrea Mcclendon DO [address] [place] [address] 02/26/2024 1:41 PM EDT - 02/26/2024 2:32 PM EDT Surgery OR [facility], Operating Room, [facility] - 4th Floor [address] [place] [address] Andrea Mcclendon, [address] [place] [address] LEFT EXTRACAPSULAR CATARACT REMOVAL WITH INTRAOCULAR LENS 02/27/2024 8:00 AM EDT Office Visit Carmela [place] [address] [place] [address] Andrea Mcclendon, [address] [place] [address] 03/05/2024 9:45 AM EDT Office Visit Carmela, [place] [address] [place] [address] Andrea Mcclendon, [address] [place] [address] 03/10/2024 8:30 PM EDT [facility]ostic Sleep Lab, [address] [place] [address] [facility], Sleep Med Night Sleep [address] [place] [address] [place] [address] 03/25/2024 9:24 AM EDT Hospital Encounter OR [facility], Operating Room, [facility] - 4th Floor [address] [place] [address] Andrea Mcclendon, [address] [place] [address] 03/25/2024 9:24 AM EDT - 03/25/2024 10:15 AM EDT Surgery OR [facility], Operating Room, [facility] - 4th Floor [address] [place] [address] Andrea Mcclendon, DO [address] [place] [address] RIGHT EXTRACAPSULAR CATARACT REMOVAL WITH INTRAOCULAR LENS 03/26/2024 8:00 AM EDT Office Visit [place] [address] [place] [address] [address] Andrea Mcclendon, DO [address] [place] [address] 04/02/2024 9:15 AM EDT Office Visit [place] [address] [place] [address] Andrea Mcclendon, [address] [place] [address] 04/25/2024 2:15 PM EDT Office Visit Stephen [place] [address] [place] [address] [address] Andrea Mcclendon, [address] [place] [address] 06/18/2024 7:40 AM EDT Office Visit [facility] [place] [address] [place] [address] Piper Cazares, [address] [place] [address] 07/14/2024 1:00 PM EDT PulmDiagnostic Pulmonary Function Lab, [address] [place] [address] [facility], [facility] [address] [facility] [address] 07/14/2024 2:00 PM EDT PulmDiagnostic Pulmonary Function Lab, [facility] [address] [place] [address] Gl, Pulm Function Room 2 [address] [place] [address] 07/23/2024 3:20 PM EDT Office Visit Pulmonary Medicine [place] [address] [place] [phone] Chance Zimmerman MD [address] [address] Scheduled Procedures Name Priority Associated Diagnoses Date/Ti [...] Additional history exists CKD PHOS USE SMARTSET 41748 12/19/202411/21, 09/12/2023, 05/21/2023, Additional history exists CKD HGB USE SMARTSET 40893 12/23/202412/23, 12/22/2023, 12/21/2023, Additional history exists O2 ASSESSMENT COMPLETED IN PAST YEAR FOR COPD 01/16/2025 01/16/2024 Lipid Panel 04/19/2027 04/19/2022, 12/21, 01/21/2021, Additional history exists Cervical Cancer Screening Discontinued Pap Smear Discontinued 10/10/2016, 10/21, 11/17/2013, Additional history exists Pneumococcal Vaccine: 65+ Years Completed 05/10/2022, 11/17/2013 LUNG CANCER SCREENING - USE SMARTSET 24625 Completed 09/09/2023, 05/22/2023, 12/15/2022, Additional history exists [...] as of this encounter Visit Diagnoses Diagnosis COPD, group D, by GOLD 2017 classification [...] the patient have Health Care Power of Planning Technician? No Bag Valve Device? Yes Intubation? No [...] Alternate Health Care Agent Care Teams Machine Spreader Relationship Specialty Start Date End Date Marcos Gamble PA-C [address] [facility] [place] [address] PCP - General Physician Vice President Risk Management 11/22/23 documented as of this encounter
--- OUTSIDE RECORDS SUMMARY | 2024-04-14 12:57 | External Medical Summary | Summary of Care ---
Author Name Unknown Organization [facility] Address [address] [place] [address] Phone [phone] Care Team Providers Care Computer Network Specialist Name Role Phone Marcos Maurice PA-C Primary Care Provide r Reason for Visit * Reason Onset Date Comments Med Request 01/31/2024 Encounter Details Date Type Department Care Team (Late st Contact Info) Description 01/31/[address] [facility] [address] [facility] [place] [address] Marcos Maurice PA-C [address] [facility] [place] [address] Med Request Allergies [...] MG Oral Tablet (Crestor)Indications: Cor pulmonale, chronic ([facility]),COPD, group D, by GOLD 2017 classification ([facility]),Hypertensive heart and kidney disease with chronic diastolic congestive heart failure and stage 3a chronic kidney disease ([facility]),Dyslipidemia,Es sential hypertension with goal blood [...] 0.1 % Nasal Solution (Astelin) Administer 1 [place] into nostril in the morning and 1 [place] before bedtime. 30 mL 12 01/12/2023 Active Furosemide 80 MG Oral Tablet (Lasix)Indications:Ge neralized osteoarthritis,Chroni c diastolic heart failure ([facility]) [...] exacerbation of chronic obstructive pulmonary disease (COPD) ([facility]) Take 1 Capsule by mouth [...] - TRES o Class D - Inhaled Gvwxbhpsuwftby-DVCC-BFPQ Combination Inhaler (Trellegy) o PD-4 Inhibitor (Daliresp) [...] oximeter to monitor SpO2, advised to contact [facility] if <90% and titrate as necessary, Tobacco use disorder 04/21/2021 Last Assessment & Plan: Referral to [employer] for assistance in getting nicoderm patches covered [...] Last Assessment & Plan: Currently followed by fan runner--not on any antihistamines currently, has follow up [...] to pollen 10/19/2016 10/26/2017 Asthmatic bronchitis 10/19/2016 12/01/2 016 Moderate persistent asthma w ith acute [...] - TRES o Class D - Inhaled Myyedtrotvmhsr-NAGZ-EODM Combination Inhaler (Trellegy) o PD-4 Inhibitor (Daliresp) [...] (Moderna) 01/28/2021 Pneumococcal Conjugate Vacci ne, 20-valent ([id number]) 05/10/2022 Pneumococcal Polysaccharide PPV23 (Pneumovax) 11/17/2013 Seasonal [...] encounter Miscellaneous Notes * Telephone Encounter - Betsy Choe PHARM Tech - 01/31/2024 11:57 AM EDT Caller requesting Prednisone and an antibiotic be prescribed for pt due to pt having difficulty breathing today. Please advise. Pt's pharmacy [facility] [address] [address] [facility] [place] Thank you, Betsy Choe [employer] [facility] ([facility])(formerly Telepharmacy) 01/31/2024,12:00 PM documented in this encounter Plan of Treatment Upcoming Encounters Date Type Department Care Team (Latest Contact Info) Description 02/08/2024 8:00 AM EDT Office Visit OphthalmologyPratibha [address] [facility] [place] [address] Andrea Mcclendon DO [address] [place] [address] Nurse Pr[facility]ibha Ophthalmology [address] [place] [address] 02/13/2024 12:20 PM EDT Office Visit [facility] [place] [address] [place] [phone] Letty Villegas CRNP [address] [place] [address] 02/26/2024 1:41 PM EDT Hospital Encounter OR [place], Operating Room, [facility] - 4th Floor [address] [place] [address] Andrea Mcclendon DO [address] [place] [address] 02/26/2024 1:41 PM EDT - 02/26/2024 2:32 PM EDT Surgery OR [facility], Operating Room, [facility] - 4th Floor [address] [place] [address] Andrea Mcclendon DO [address] [place] [address] LEFT EXTRACAPSULAR CATARACT REMOVAL WITH INTRAOCULAR LENS 02/27/2024 8:00 AM EDT Office Visit OphthalmologyPratibha [address] [place] [address] Andrea Mcclendon DO [address] [place] [address] 03/05/2024 9:45 AM EDT Office Visit OphthalmologyPratibha [address] [place] [address] Andrea Mcclendon, DO [address] [place] [address] 03/10/2024 8:30 PM EDT PulmDiagnostic Sleep Lab, [facility] [address] [place] [address] [facility], Sleep Med Night Sleep [address] [facility] [place] [address] 03/25/2024 9:24 AM EDT Hospital Encounter OR [facility], Operating Room, [facility] - 4th Floor [address] [facility] [place] [address] Andrea Mcclendon DO [address] [place] [address] 03/25/2024 9:24 AM EDT - 03/25/2024 10:15 AM EDT Surgery OR [facility], Operating Room, [facility] - 4th Floor [address] [facility] [place] [address] Andrea Mcclendon DO [address] [place] [address] RIGHT EXTRACAPSULAR CATARACT REMOVAL WITH INTRAOCULAR LENS 03/26/2024 8:00 AM EDT Office [place] [address] Andrea Mcclendon DO [address] [place] [address] 04/02/2024 9:15 AM EDT Office Visit [facility]mology[place] [address] [place] [address] Andrea Mcclendon, [address] [place] [address] 04/25/2024 2:15 PM EDT [facility] [address] [facility] [place] [address] Andrea Mcclendon DO [address] [facility] [place] [address] 06/18/2024 7:40 AM EDT Office Visit [facility] [address], [place] [address] [place] [address] Piper Cazares DO [address] [place] [address] 07/14/2024 1:00 PM EDT PulmDiagnostic Pulmonary Function Lab, [address] [place] [address] Gl, Pulm Function Room [address] [place] [address] [place] [address] 07/14/2024 2:00 PM EDT PulmDiagnostic Pulmonary Function Lab, [address] [address] [facility], Pulm Function Room [address] [place] [address] 07/23/2024 3:20 PM EDT Office Visit Pulmonary Medicine [place] Pratibha [place] [address] [place] [address] [phone] Chance Zimmerman MD [address] [address] [address] Scheduled Procedures Name Priority Associated Diagnoses Date/Ti [...] exists DISCUSS TOBACCO CESSATION (REFER TO SMARTSET #9319) 10/15/2024 10/15/2023, 05/31/2023, 01/12/2023, Additional history exists Diabetic Eye Exam 12/10/2024 12/10/2023, , 12/10/2023, Additional history exists CKD PHOS USE SMARTSET 18031 12/19/202411/21, 09/12/2023, 05/21/2023, Additional history exists CKD HGB USE SMARTSET 08533 12/23/202412/23, 12/22/2023, 12/21/2023, Additional history exists O2 ASSESSMENT COMPLETED IN PAST YEAR FOR COPD 01/16/2025 01/16/2024 Lipid Panel 04/19/2027 04/19/2022, 12/21, 01/21/2021, Additional history exists Cervical Cancer Screening Discontinued Pap Smear Discontinued 10/10/2016, 10/21, 11/17/2013, Additional history exists Pneumococcal Vaccine: 65+ Years Completed 05/10/2022, 11/17/2013 LUNG CANCER SCREENING - USE SMARTSET 09786 Completed 09/09/2023, 05/22/2023, 12/15/2022, Additional history exists [...] the patient have Health Care Power of Medical Supply Technician? No Bag Valve Device? Yes Intubation? [...] First Alternate Health Care Agent Care Teams Computer Network Specialist Relationship Specialty Start Date End Date Marcos Maurice PA-C [address] [facility] [place] [address] PCP - General Physician Plant Inspector 11/22/23 documented as of this encounter
--- OUTSIDE RECORDS SUMMARY | 2024-04-14 12:57 | External Medical Summary | Summary of Care ---
Author Name Unknown Organization [facility] Address [address] [place] [address] Phone [phone] Care Team Providers Care Lapel Padder Blindstitch Name Role Phone Marcos Maurice PA-C Primary Care Provide r Reason for Visit * Reason Onset Date Comments Other 01/31/2024 Encounter Details Date Type Department Care Team (Late st Contact Info) Description 01/31[facility] [place] [address] Marcos Maurice PA-C [address] [facility] [place] [address] Other Allergies Active Allergy Reactions Criticality [...] 0.1 % Nasal Solution (Astelin) Administer 1 [place] into nostril in the morning and 1 [place] before bedtime. 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 Educated on use. Must call [facility] when initiated so further assessment can be made documented as of this encounter (statuses as of 02/01/2024) Immunizations Name Administration Dates Next Due COVID-19 mRNA, LNP-s, No Pre serve, 2-Dose Series (Moderna) 01/28/2021 Pneumococcal Conjugate Vacci ne, 20-valent ([id number]) 05/10/2022 Pneumococcal Polysaccharide PPV23 (Pneumovax) 11/17/2013 Seasonal [...] encounter Miscellaneous Notes * Addendum Note - Paris Gutierrez LPN - 02/01/2024 12:02 PM EDTAddended by: PARIS GUTIERREZ on: 02/01/2024 12:02 PM Modules accepted: Orders * Telephone Encounter - Paris Gutierrez LPN - 02/01/2024 12:02 PM EDT Last OV 01/16/24, pending for review * Telephone Encounter - Anshu Shepherd, newspaper inserter - 01/31/2024 12:14 PM EDT Pt daughter called back stating that Dr Needs to send new Referral in for Home Nurse to be reinstated to go to pt home. Thank You, Anshu Shepherd [facility] Sandwich Wrapper II Centralized Clinical Pharmacy Services (Formerly Telepharmacy) 01/31/2024, 12:15 PM * Telephone Encounter - Betsy Choe PHARM Tech - 01/31/2024 12:01 PM EDT Caller stated pt's At Home Nurse is no longer coming to pt's house due to needing a referral.Lost connection with caller and tried to call her back but no one answered. Please advise. Caller can be reached at [phone]. Thank you, Betsy Choe Entry Level Programmer I Centralized Clinical Pharmacy Services (CCPS)(formerly Telepharmacy) 01/31/2024,12:05 PM documented in this encounter Plan of Treatment Upcoming Encounters Date Type Department Care Team (Latest Contact Info) Description 02/08/2024 8:00 AM EDT Office Visit OphthalmologyPratibha [address] [place] [address] Andrea Mcclendon [place] [address] Nurse Pratibha Ophthalmology [address] [place] [address] 02/13/2024 12:20 PM EDT Office Visit Family Pratibha Juarez [address] [place] [phone] Letty Villegas CRNP [address] [place] [address] 02/26/2024 1:41 PM EDT Hospital Encounter OR [facility], Operating Room, [facility] - [address] [place] [address] [address] [facility] [address] Andrea Mcclendon, DO [address] [place] [address] 02/26/2024 1:41 PM EDT - 02/26/2024 2:32 PM EDT Surgery OR [facility], Operating Room, [facility] Floor [address] [place] [address] Andrea Mcclendon, DO [address] [place] [address] LEFT EXTRACAPSULAR CATARACT REMOVAL WITH INTRAOCULAR LENS 02/27/2024 8:00 AM EDT Office Visit Ophthalmology [place] [address] [place] [address] Andrea Mcclendon, [address] [place] [address] 03/05/2024 9:45 AM EDT Office Visit OphthalmologyStephenChappells [address] [place] [address] Andrea Mcclendon DO [address] [place] [address] 03/10/2024 8:30 PM EDT PulmDiagnostic Sleep Lab, [address] [place] [address] [facility], Sleep Med Night Sleep [address] [place] [address] [place] [address] 03/25/2024 9:24 AM EDT Hospital Encounter OR [facility], Operating Room, [facility] - [address] [place] [address] [address] [place] [address] Andrea Mcclendon, [address] [place] [address] 03/25/2024 9:24 AM EDT - 03/25/2024 10:15 AM EDT Surgery OR [facility], Operating Room, [facility] - 4th Floor [address] [place] [address] Andrea Mcclendon, DO [address] [place] [address] RIGHT EXTRACAPSULAR CATARACT REMOVAL WITH INTRAOCULAR LENS 03/26/2024 8:00 AM EDT Office Visit [place] [address] [place] [address] Andrea Mcclendon, [address] [place] [address] 04/02/2024 9:15 AM EDT Office Visit [place] [address] [place] [address] Andrea Mcclendon, DO [address] [place] [address] 04/25/2024 2:15 PM EDT Office Visit [place] [address] [place] [address] Andrea Mcclendon, [address] [place] [address] 06/18/2024 7:40 AM EDT Office Visit [facility] [address], Osei [address] [place] [address] Piper Cazares, DO [address] [place] [address] 07/14/2024 1:00 PM EDT PulmDiagnostic Pulmonary Function Lab, [address] [place] [address] [facility], Pulm Function Room 1 [address] [place] [address] 07/14/2024 2:00 PM EDT PulmDiagnostic Pulmonary Function Lab, [facility] [address] [place] [address] Gl, Pulm Function Room 2 [address] [place] [address] 07/23/2024 3:20 PM EDT Office Visit Pulmonary Medicine [place] Pratibha [place] [address] [place] [phone] Chance Zimmerman MD [address] [place] [address] Scheduled Procedures Name Priority Associated Diagnoses Date/Ti [...] Additional history exists CKD PHOS USE SMARTSET 01983 12/19/202411/21, 09/12/2023, 05/21/2023, Additional history exists CKD HGB USE SMARTSET 39940 12/23/202412/23, 12/22/2023, 12/21/2023, Additional history exists O2 ASSESSMENT COMPLETED IN PAST YEAR FOR COPD 01/16/2025 01/16/2024 Lipid Panel 04/19/2027 04/19/2022, 12/21, 01/21/2021, Additional history exists Cervical Cancer Screening Discontinued Pap Smear Discontinued 10/10/2016, 10/21, 11/17/2013, Additional history exists Pneumococcal Vaccine: 65+ Years Completed 05/10/2022, 11/17/2013 LUNG CANCER SCREENING - USE SMARTSET 81564 Completed 09/09/2023, 05/22/2023, 12/15/2022, Additional history exists [...] the patient have Health Care Power of Apparel Rental Clerk? No Bag Valve Device? Yes Intubation? [...] First Alternate Health Care Agent Care Teams Lapel Padder Blindstitch Relationship Specialty Start Date End Date Marcos Maurice PA-C [address] [facility] [place] [phone] PCP - General Physician Hearing Screen Coordinator 11/22/23 documented as of this encounter
--- OUTSIDE RECORDS SUMMARY | 2024-04-14 12:57 | External Medical Summary | Summary of Care ---
Author Name Unknown Organization [facility] Address [address] [place] [address] Phone [phone] Care Team Providers Care Chair Frame Builder Name Role Phone Josafat Marcosananda Caldwell PA-C Primary Care Provide r Reason for Visit * Reason Onset Date Comments Advice 01/31/2024 COPD exacerbatio n? Encounter Details Date Type Department Care Team (Late st Contact Info) Description 01/31/2024 Telephone Pulmonary Function Lab, [address] [address] Debra Larsen, SOFTBALL PLAYER Advice (COPD exacerbation? ) Allergies Active Allergy [...] MG Oral Tablet (Crestor)Indication s:Cor pulmonale, chronic ([facility]),COPD, group D, by GOLD 2017 classification ([facility]),Hypertensive heart and kidney disease with chronic diastolic congestive heart failure and stage 3a chronic kidney disease ([facility]),Dyslipidemia, Essential hypertension with goal blood pressure less than 140/90 Take by mouth 1 Tablet in the morning. 90 Tablet 3 09/22/2022 Active Empagliflozin 10 MG Oral Tablet (Jardiance)Indicati ons:Type 2 diabetes mellitus with stage 3a chronic kidney disease, without long-term current use of insulin ([facility]) Take 1 Tablet by mouth in the morning. 30 Tablet 11 11/22/2022 Active metFORMIN HCl 1000 MG Oral Tablet (Glucophage)Indicat ions:Type 2 diabetes mellitus with stage 3a chronic kidney disease, without long-term current use of insulin ([facility]) Take 1 Tablet by mouth 2 times a day with morning and evening meals. 60 Tablet 5 11/22/2022 Active Azelastine HCl 0.1 % Nasal Solution (Astelin) Administer 1 [place] into nostril in the morning and 1 [place] before bedtime. 30 mL 12 01/12/2023 Active Furosemide 80 MG Oral Tablet (Lasix)Indications: Generalized osteoarthritis,Salon Sales Consultant kunal diastolic heart failure ([facility]) Take 1 Tablet by mouth in the [...] chronic obstructive pulmonary disease (COPD) ([facility]) Take 1 Capsule by mouth at bedtime. [...] ons:COPD, group D, by GOLD 2017 classification ([facility]) Inhale 1 Vial via nebulizer every 4 hours as needed for Wheezing or Shortness of Breath. 180 mL 11 01/31/2024 Active Albuterol Sulfate (2.5 MG/3ML) 0.083% Inhalation Nebulization Solution (Proventil)Indicati ons:COPD, group D, by GOLD 2017 classification ([facility]) Inhale 1 Vial via nebulizer every 4 [...] - TRES o Class D - Inhaled Wxmorwpjlhtbkg-JFTZ-IEPY Combination Inhaler (Trellegy) o PD-4 Inhibitor (Daliresp) [...] oximeter to monitor SpO2, advised to contact [facility] if <90% and titrate as necessary, Tobacco use disorder 04/21/2021 Last Assessment & Plan: Referral to [employer] for assistance in getting nicoderm patches covered [...] Last Assessment & Plan: 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 Educated on use. Must call [facility] when initiated so further assessment can be made documented as of this encounter (statuses as of 01/31/2024) Immunizations Name Administration Dates Next Due COVID-19 mRNA, LNP-s, No Pre serve, 2-Dose Series (Moderna) 01/28/2021 Pneumococcal Conjugate Vacci ne, 20-valent ([id number]) 05/10/2022 Pneumococcal Polysaccharide PPV23 (Pneumovax) 11/17/2013 Seasonal [...] encounter Miscellaneous Notes * Addendum Note - Chance Zimmerman MD [...] 02/08/2024 8:00 AM EDT Office Visit Ophthalmology, [place] [address] [place] [address] Andrea Mccelndon DO [address] [place] [address] Pratibha Nurse Ophthalmology [address] [place] [address] 02/13/2024 12:20 PM EDT Office Visit [facility], [place] [address] [place] [phone] Letty Villegas CRNP [address] [place] [address] 02/26/2024 1:41 PM EDT Hospital Encounter OR [facility], Operating Room, [facility] - 4th Floor [address] [place] [address] Andrea Mcclendon DO [address] [place] [address] 02/26/2024 1:41 PM EDT - 02/26/2024 2:32 PM EDT Surgery OR [facility], Operating Room, [facility] - 4th Floor [address] [place] [address] Andrea Mcclendon DO [address] [place] [address] LEFT EXTRACAPSULAR CATARACT REMOVAL WITH INTRAOCULAR LENS 02/27/2024 8:00 AM EDT Office Visit OphthalmologyStephenRoxana [address] [place] [address] Andrea Mcclendon, [address] [place] [address] 03/05/2024 9:45 AM EDT Office Visit [place] [address] [place] [address] Andrea Mcclendon, [address] [place] [address] 03/10/2024 8:30 PM EDT PulmDiagnostic Sleep Lab, [facility] [address] [place] [address] [facility], Sleep Med Night Sleep [address] [facility] [place] [address] 03/25/2024 9:24 AM EDT Hospital Encounter OR [facility], Operating Room, [facility] - 4th Floor [address] [place] [address] Andrea Mcclendon, [address] [place] [address] 03/25/2024 9:24 AM EDT - 03/25/2024 10:15 AM EDT Surgery OR [facility], Operating Room, [facility] - 4th Floor [address] [place] [address] Andrea Mcclendon DO [address] [place] [address] RIGHT EXTRACAPSULAR CATARACT REMOVAL WITH INTRAOCULAR LENS 03/26/2024 8:00 AM EDT Office Visit OphthalmologyStephenRoxana [address] [place] [address] Andrea Mcclendon, DO [address] [place] [address] 04/02/2024 9:15 AM EDT Office Visit Ophthalmology, [place] [address] [place] [address] Andrea Mcclendon, DO [address] [place] [address] 04/25/2024 2:15 PM EDT Office Visit Ophthalmology, [place] [address] [place] [address] Andrea Mcclendon, DO [address] [place] [address] 06/18/2024 7:40 AM EDT Office Visit [facility] [address], [address] [place] [address] Piper Cazares DO [address] [place] [address] 07/14/2024 1:00 PM EDT PulmDiagnostic Pulmonary Function Lab, [address] [place] [address] [facility], Pulm Function Room 1 [address] [facility] [address] 07/14/2024 2:00 PM EDT PulmDiagnostic Pulmonary Function Lab, [address] [place] [address] [facility], Pulm Function Room 2 [address] [facility] [place] [address] 07/23/2024 3:20 PM EDT Office Visit [facility] [address] [place] [phone] Chance Zimmerman MD [address] [place] [address] Scheduled Orders Name Type Priority Associated Diagnoses [...] exists DISCUSS TOBACCO CESSATION (REFER TO SMARTSET #4604) 10/15/2024 10/15/2023, 05/31/2023, 01/12/2023, Additional history exists Diabetic Eye Exam 12/10/2024 12/10/2023, , 12/10/2023, Additional history exists CKD PHOS USE SMARTSET 43755 12/19/202411/21, 09/12/2023, 05/21/2023, Additional history exists CKD HGB USE SMARTSET 01600 12/23/202412/23, 12/22/2023, 12/21/2023, Additional history exists O2 ASSESSMENT COMPLETED IN PAST YEAR FOR COPD 01/16/2025 01/16/2024 Lipid Panel 04/19/2027 04/19/2022, 12/21, 01/21/2021, Additional history exists Cervical Cancer Screening Discontinued Pap Smear Discontinued 10/10/2016, 10/21, 11/17/2013, Additional history exists Pneumococcal Vaccine: 65+ Years Completed 05/10/2022, 11/17/2013 LUNG CANCER SCREENING - USE SMARTSET 33222 Completed 09/09/2023, 05/22/2023, 12/15/2022, Additional history exists [...] the patient have Health Care Power of Cras? No Bag Valve Device? Yes Intubation? No [...] File Name Relationship Healthcare Agent [facility] Communication Martinezliam GRIGSBY Adult Child First Alternate Health Care Agent Peter Grigsby Adult Child First Alternate Health Care Agent Jazmine Corona Adult Child First Alternate Health Care Agent Care Teams Chair Frame Builder Relationship Specialty Start Date End Date Marcos Maurice PA-C [facility]8 [facility] [place] [phone] PCP - General Physician Lotus Notes Developer 11/22/23 documented as of this encounter
--- OUTSIDE RECORDS SUMMARY | 2024-04-14 12:57 | External Medical Summary | Summary of Care ---
Author Name Unknown Organization [facility] Address [address] [place] [address] Phone [phone] Care Team Providers Care Fire Fighter Airport Name Role Phone Marcos Maurice PA-C Primary Care Provide r Reason for Visit * Reason Onset Date Comments Other 01/31/2024 Encounter Details Date Type Department Care Team (Late st Contact Info) Description [facility]/31[facility] [place] [address] Marcos Maurice PA-C [address] [facility] [place] [address] Other Allergies Active Allergy [...] 0.1 % Nasal Solution (Astelin) Administer 1 [place] into nostril in the morning and 1 [place] before bedtime. 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 Thank You, Anshu Shepherd [facility] International Logistics Manager II Centralized Clinical Pharmacy Services (Formerly Telepharmacy) 01/31/2024, 12:15 PM * Telephone Encounter - Betsy Choe manager interventional - 01/31/2024 12:01 PM EDT Caller stated pt's At Home Nurse is no longer coming to pt's house due to needing a referral.Lost connection with caller and tried to call her back but no one answered. Please advise. Caller can be reached at [phone]. Thank you, Betsy Choe Shrub Grower I Centralized Clinical Pharmacy Services (CCPS)(formerly Telepharmacy) 01/31/2024,12:05 PM documented in this encounter Plan of Treatment Upcoming Encounters Date Type Department Care Team (Latest Contact Info) Description 02/08/2024 8:00 AM EDT Office Visit Ophthalmology, [place] [address] [place] [address] Andrea Mcclendon DO [address] [place] [address] Nurse Pratibha Ophthalmology [address] [place] [address] 02/13/2024 12:20 PM EDT Office Visit [facility], [place] [address] [place] [phone] Letty Villegas CRNP [address] [place] [address] 02/26/2024 1:41 PM EDT Hospital Encounter OR [facility], Operating Room, [facility] - 4th Floor [address] [place] [address] Andrea Mcclendon DO [address] [place] [address] 02/26/2024 1:41 PM EDT - 02/26/2024 2:32 PM EDT Surgery OR [facility], Operating Room, [facility] - 4th Floor [address] [place] [address] Andrea Mcclendon DO [address] [place] [address] LEFT EXTRACAPSULAR CATARACT REMOVAL WITH INTRAOCULAR LENS 02/27/2024 8:00 AM EDT Office Visit OphthalmologyStephenGodfrey [address] [place] [address] Andrea Mcclendon, [address] [place] [address] 03/05/2024 9:45 AM EDT Office Visit [place] [address] [place] [address] Andrea Mcclendon, [address] [place] [address] 03/10/2024 8:30 PM EDT PulmDiagnostic Sleep Lab, [address] [place] [address] [facility], Sleep Med Night Sleep [address] [place], [place] [address] [address] 03/25/2024 9:24 AM EDT Hospital Encounter OR [facility], Operating Room, [facility] - 4th Floor [address] [place] [address] Andrea Mcclendon, [address] [place] [address] 03/25/2024 9:24 AM EDT - 03/25/2024 10:15 AM EDT Surgery OR [facility], Operating Room, [facility] - 4th Floor [address] [place] [address] Andrea Mcclendon DO [address] [place] [address] RIGHT EXTRACAPSULAR CATARACT REMOVAL WITH INTRAOCULAR LENS 03/26/2024 8:00 AM EDT Office Visit OphthalmologyBearw[place] [address] Andrea Mcclendon, DO [address] [place], [place] [address] 04/02/2024 9:15 AM EDT Office Visit Ophthalmology, [place] [address] [place] [address] Andrea Mcclendon, DO [address] [place], [place] [address] 04/25/2024 2:15 PM EDT Office Visit Ophthalmology, [place] [address] [place] [address] Andrea Mcclendon, DO [address] Pr[place]ha, [place] [address] 06/18/2024 7:40 AM EDT Office Visit [facility], [place] [place] [address] Piper Cazares DO [address] [place] [address] 07/14/2024 1:00 PM EDT PulmDiagnostic Pulmonary Function Lab, [facility] 400 [facility] [address] [facility], Pulm Function Room 1 400 [facility] [address] 07/14/2024 2:00 PM EDT PulmDiagnostic Pulmonary Function Lab, [facility] [address] [facility] [address] [facility], Pulm Function Room 2 [address] [facility] [address] 07/23/2024 3:20 PM EDT Office Visit Pulmonary Medicine [place] [address] [address] [place] [phone] Chance Zimmerman MD [address] [place] [address] Scheduled Procedures Name Priority Associated Diagnoses Date/Ti [...] exists DISCUSS TOBACCO CESSATION (REFER TO SMARTSET #9862) 10/15/2024 10/15/2023, 05/31/2023, 01/12/2023, Additional history exists Diabetic Eye Exam 12/10/2024 12/10/2023, , 12/10/2023, Additional history exists CKD PHOS USE SMARTSET 38772 12/19/202411/21, 09/12/2023, 05/21/2023, Additional history exists CKD HGB USE SMARTSET 18913 12/23/202412/23, 12/22/2023, 12/21/2023, Additional history exists O2 ASSESSMENT COMPLETED IN PAST YEAR FOR COPD 01/16/2025 01/16/2024 Lipid Panel 04/19/2027 04/19/2022, 12/21, 01/21/2021, Additional history exists Cervical Cancer Screening Discontinued Pap Smear Discontinued 10/10/2016, 10/21, 11/17/2013, Additional history exists Pneumococcal Vaccine: 65+ Years Completed 05/10/2022, 11/17/2013 LUNG CANCER SCREENING - USE SMARTSET 88543 Completed 09/09/2023, 05/22/2023, 12/15/2022, Additional history exists [...] the patient have Health Care Power of Scrap Hoist Operator? No Bag Valve Device? Yes Intubation? [...] First Alternate Health Care Agent Care Teams Fire Fighter Airport Relationship Specialty Start Date End Date Marcos Maurice PA-C [address] [facility] [place] [address] PCP - General Physician Sheet Sewer 11/22/23 documented as of this encounter
--- OUTSIDE RECORDS SUMMARY | 2024-04-14 12:57 | External Medical Summary | Summary of Care ---
Author Name Unknown Organization [facility] Address [address] [place] [address] Phone [phone] Care Team Providers Care Merchandise Flow Manager Name Role Phone Josafat Marcosananda Caldwell PA-C Primary Care Provide r Reason for Visit * Reason Onset Date Comments Advice 01/31/2024 COPD exacerbatio n? Encounter Details Date Type Department Care Team (Late st Contact Info) Description 01/31/2024 Telephone Pulmonary Function Lab, [address] [address] Debra Larsen, GUN TESTER Advice (COPD exacerbation? ) Allergies Active Allergy [...] Oral Tablet (Crestor)Indications: Cor pulmonale, chronic ([facility]),COPD, group D, by GOLD 2017 classification ([facility]),Hypertensive heart and kidney disease with chronic diastolic congestive heart failure and stage 3a chronic kidney disease ([facility]),Dyslipidemia,Es sential hypertension with goal blood pressure less than 140/90 Take by mouth 1 Tablet in the morning. 90 Tablet 3 09/22/2022 Active Empagliflozin 10 MG Oral Tablet (Jardiance)Indication s:Type 2 diabetes mellitus with stage 3a chronic kidney disease, without long-term current use of insulin ([facility]) Take 1 Tablet by mouth in the morning. 30 Tablet 11 11/22/2022 Active metFORMIN HCl 1000 MG Oral Tablet (Glucophage)Indicatio ns:Type 2 diabetes mellitus with stage 3a chronic kidney disease, without long-term current use of insulin ([facility]) Take 1 Tablet by mouth 2 times a day with morning and evening meals. 60 Tablet 5 11/22/2022 Active Azelastine HCl 0.1 % Nasal Solution (Astelin) Administer 1 [place] into nostril in the morning and 1 [place] before bedtime. 30 mL 12 01/12/2023 Active Furosemide 80 MG Oral Tablet (Lasix)Indications:Ge neralized osteoarthritis,Chroni c diastolic heart failure ([facility]) Take 1 Tablet by mouth [...] the morning. 90 Capsule 1 06/21/2023 Active Albuterol Sulfate (2.5 MG/3ML) 0.083% Inhalation Nebulization Solution (Proventil)Indication s:COPD, group D, by GOLD 2017 classification ([facility]) Inhale 1 Vial via nebulizer every 4 hours as needed for Wheezing or Shortness of Breath. 180 mL 11 08/02/2023 Active Cetirizine HCl 10 MG Oral CapsuleIndications:Vi [...] - TRES o Class D - Inhaled Surfguvkssylhm-CBPT-LYVR Combination Inhaler (Sabihay) o PD-4 Inhibitor (Daliresp) [...] to monitor SpO2, advised to contact [facility] if <90% and titrate as necessary, Tobacco use disorder 04/21/2021 Last Assessment & Plan: Referral to [facility] for assistance in getting nicoderm patches covered [...] Last Assessment & Plan: Currently followed by raking machine operator--not on any antihistamines currently, has [...] - TRES o Class D - Inhaled Cjnflbyjdqoday-UDCG-CAXM Combination Inhaler (Trellegy) o PD-4 Inhibitor (Daliresp) Self-Management plan o Prednisone 40mg daily for 5 days Rx o High frequency nebulizer treatments every 4-6 hours around the clock Exacerbation plan o Prednisone rescue kit Rescue kit given today. Educated on use. Must call [facility] when initiated so further assessment can be made documented as of this encounter (statuses as of 01/31/2024) Immunizations Name Administration Dates Next Due COVID-19 mRNA, LNP-s, No Pre serve, 2-Dose Series (Moderna) 01/28/2021 Pneumococcal Conjugate Vacci ne, 20-valent ([id number]) 05/10/2022 Pneumococcal Polysaccharide PPV23 (Pneumovax) 11/17/2013 Seasonal [...] encounter Miscellaneous Notes * Addendum Note - Yanelis Ghosh LPN [...] medications * Telephone Encounter - Debra Larsen, GUN TESTER - 01/31/2024 12:53 PM EDT F/U call [...] EDT Office Visit Pratibha [place] [address] Andrea Mcclendon, DO [place] [address] [place], Nurse Ophthalmology [address] [place] [address] [address] 02/13/2024 12:20 PM EDT Office Visit [facility], [place] [address] [place] [address] [address] Letty Villegas CRNP [address] [address] [address] 02/26/2024 1:41 PM EDT Hospital Encounter OR GL, Operating Room, [facility] - 4th Floor [address] [facility] [address] Andrea Mcclendon DO [address] [place] [address] 02/26/2024 1:41 PM EDT - 02/26/2024 2:32 PM EDT Surgery OR [facility], Operating Room, [facility] - 4th Floor [address] [place] [address] Andrea Mcclendon DO [address] [place] [address] LEFT EXTRACAPSULAR CATARACT REMOVAL WITH INTRAOCULAR LENS 02/27/2024 8:00 [place] [address] Andrea Mcclendon DO [address] [place] [address] 03/05/2024 9:45 [place] [address] Andrea Mcclendon DO [address] [place] [address] 03/10/2024 8:30 PM EDT PulmDiagnostic Sleep Lab, [facility] [address] [place] [address] [facility], Sleep Med Night Sleep [address] [facility] [place] [address] 03/25/2024 9:24 AM EDT Hospital Encounter OR GL, Operating Room, [facility] - 4th Floor [address] [place] [address] Andrea Mcclendon, [address] [place] [address] 03/25/2024 9:24 AM EDT - 03/25/2024 10:15 AM EDT Surgery OR [facility], Operating Room, [facility] - 4th Floor [address] [place] [address] Andrea Mcclendon DO [address] [place] [address] RIGHT EXTRACAPSULAR CATARACT REMOVAL WITH INTRAOCULAR LENS 03/26/2024 8:00 AM EDT Office Visit [facility] [place] [address] [place] [address] Andrea Mcclendon, [address] [place] [address] 04/02/2024 9:15 AM EDT Office Visit Pratibha Casey [address] [place] [address] Andrea Mcclendon, [address] [place] [address] 04/25/2024 2:15 PM EDT Office Visit Pratibha Casey [address] [place] [address] Andrea Mcclendon, [address] [place] [address] 06/18/2024 7:40 AM EDT Office Visit Count Includes [facility], [place] [address] [place] [address] Piper Cazares DO [address] [place] [address] 07/14/2024 1:00 PM EDT PulmDiagnostic Pulmonary Function Lab, [address] [address] [place], Pulm Function Room 1 [address] [place] [address] 07/14/2024 2:00 PM EDT PulmDiagnostic Pulmonary Function Lab, [address] [address] Gl, Pulm Function Room 2 [address] [place] [address] 07/23/2024 3:20 PM EDT [facility] [place] [address] [place] [phone] Chance Zimmerman MD [address] [address] Scheduled Procedures Name Priority Associated Diagnoses Date/Ti [...] exists DISCUSS TOBACCO CESSATION (REFER TO SMARTSET #1068) 10/15/2024 10/15/2023, 05/31/2023, 01/12/2023, Additional history exists Diabetic Eye Exam 12/10/2024 12/10/2023, , 12/10/2023, Additional history exists CKD PHOS USE SMARTSET 81454 12/19/202411/21, 09/12/2023, 05/21/2023, Additional history exists CKD HGB USE SMARTSET 90327 12/23/202412/23, 12/22/2023, 12/21/2023, Additional history exists O2 ASSESSMENT COMPLETED IN PAST YEAR FOR COPD 01/16/2025 01/16/2024 Lipid Panel 04/19/2027 04/19/2022, 12/21, 01/21/2021, Additional history exists Cervical Cancer Screening Discontinued Pap Smear Discontinued 10/10/2016, 10/21, 11/17/2013, Additional history exists Pneumococcal Vaccine: 65+ Years Completed 05/10/2022, 11/17/2013 LUNG CANCER SCREENING - USE SMARTSET 67211 Completed 09/09/2023, 05/22/2023, 12/15/2022, Additional history exists [...] the patient have Health Care Power of Oil Extractor? No Bag Valve Device? Yes Intubation? No [...] First Alternate Health Care Agent Care Teams Merchandise Flow Manager Relationship Specialty Start Date End Date Marcos Maurice PA-C [address] [facility] [place] [phone] PCP - General Physician Expander 11/22/23 documented as of this encounter
--- OUTSIDE RECORDS SUMMARY | 2024-04-14 12:58 | External Medical Summary | Summary of Care ---
Author Name Unknown Organization [facility] Address [address] [place] [address] Phone [phone] Care Team Providers Care Environmental Health Safety Engineer Name Role Phone Josafat Marcosananda Caldwell PA-C Primary Care Provide r Reason for Visit * Reason Onset Date Comments Advice 01/31/2024 COPD exacerbatio n? Encounter Details Date Type Department Care Team (Late st Contact Info) Description 01/31/2024 Telephone Pulmonary Function Lab, [address] [address] Debra Larsen, LOG OPERATIONS COORDINATOR Advice (COPD exacerbation? ) Allergies Active Allergy [...] MG Oral Tablet (Crestor)Indications: Cor pulmonale, chronic ([facility]),COPD, group D, by GOLD 2017 classification ([facility]),Hypertensive heart and kidney disease with chronic diastolic congestive heart failure and stage 3a chronic kidney disease ([facility]),Dyslipidemia,Es sential hypertension with goal blood pressure less than 140/90 Take by mouth 1 Tablet in the morning. 90 Tablet 3 09/22/2022 Active Empagliflozin 10 MG Oral Tablet (Jardiance)Indication s:Type 2 diabetes mellitus with stage 3a chronic kidney disease, without long-term current use of insulin ([facility]) Take 1 Tablet by mouth in the morning. 30 Tablet 11 11/22/2022 Active metFORMIN HCl 1000 MG Oral Tablet (Glucophage)Indicatio ns:Type 2 diabetes mellitus with stage 3a chronic kidney disease, without long-term current use of insulin ([facility]) Take 1 Tablet by mouth 2 times a day with morning and evening meals. 60 Tablet 5 11/22/2022 Active Azelastine HCl 0.1 % Nasal Solution (Astelin) Administer 1 [place] into nostril in the morning and 1 [place] before bedtime. 30 mL 12 01/12/2023 Active Furosemide 80 MG Oral Tablet (Lasix)Indications:Ge neralized osteoarthritis,Chroni c diastolic heart failure ([facility]) Take 1 Tablet by mouth in [...] s:COPD, group D, by GOLD 2017 classification ([facility]) Inhale 1 Vial via nebulizer every [...] - TRES o Class D - Inhaled Dqhxqtgtzotwjb-QXXD-NHYK Combination Inhaler (Sabihay) o PD-4 Inhibitor (Daliresp) [...] oximeter to monitor SpO2, advised to contact [facility] if <90% and titrate as necessary, Tobacco use disorder 04/21/2021 Last Assessment & Plan: Referral to [facility] for assistance in getting nicoderm patches covered [...] Last Assessment & Plan: 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 Educated on use. Must call [facility] when initiated so further assessment can be made documented as of this encounter (statuses as of 01/31/2024) Immunizations Name Administration Dates Next Due COVID-19 mRNA, LNP-s, No Pre serve, 2-Dose Series (Moderna) 01/28/2021 Pneumococcal Conjugate Vacci ne, 20-valent ([id number]) 05/10/2022 Pneumococcal Polysaccharide PPV23 (Pneumovax) 11/17/2013 Seasonal [...] medications * Telephone Encounter - Debra Larsen, LOG OPERATIONS COORDINATOR - 01/31/2024 12:53 PM EDT F/U call [...] Description 02/08/2024 8:00 AM EDT [place] [address] [place] [address] Andrea Mcclendon DO [address] [place] [address] Nurse Pratibha Ophthalmology [address] [place] [address] 02/13/2024 12:20 PM EDT Office Visit [facility] [place] [address] [place] [address] [phone] Letty Villegas CRNP [address] [place] [address] [address] 02/26/2024 1:41 PM EDT Hospital Encounter OR [facility], Operating Room, [facility] - 4th Floor [address] [place] [address] Andrea Mcclendon DO [address] [place] [address] 02/26/2024 1:41 PM EDT - 02/26/2024 2:32 PM EDT Surgery OR [facility], Operating Room, [facility] - 4th Floor [address] [address] Andrea Mcclendon, DO [address] [place] [address] LEFT EXTRACAPSULAR CATARACT REMOVAL WITH INTRAOCULAR LENS 02/27/2024 8:00 AM EDT Office Visit Ophthalmology, [place] [address] [place] [address] Andrea Mcclendon, DO [address] [place] [address] 03/05/2024 9:45 AM EDT Office Visit Ophthalmology, [place] [address] [place] [address] Andrea Mcclendon, DO [address] [place] [address] 03/10/2024 8:30 PM EDT PulmDiagnostic Sleep Lab, [address] [place] [address] [facility], Sleep Med Night Sleep [address] [place] [address] [place] [address] 03/25/2024 9:24 AM EDT Hospital Encounter OR [facility], Operating Room, [facility] - 4th Floor [address] [place] [address] Andrea Mcclendon, [address] [place] [address] 03/25/2024 9:24 AM EDT - 03/25/2024 10:15 AM EDT Surgery OR [facility], Operating Room, [facility] - 4th Floor [address] [place] [address] Andrea Mcclendon, [address] [place] [address] RIGHT EXTRACAPSULAR CATARACT REMOVAL WITH INTRAOCULAR LENS 03/26/2024 8:00 AM EDT Office Visit Ophthalmology, [place] [address] [place] [address] Andrea Mcclendon, DO [address] [place] [address] 04/02/2024 9:15 AM EDT Office Visit Ophthalmology, [place] [address] [place] [address] Andrea Mcclendon, DO [address] [place] [address] 04/25/2024 2:15 PM EDT Office Visit [place] [address] [place] [address] [address] Andrea Mcclendon, DO [address] [place] [address] 06/18/2024 7:40 AM EDT Office Visit [facility], [place] [address] [place] [address] Piper Caazres, [address] [place] [address] 07/14/2024 1:00 PM EDT PulmDiagnostic Pulmonary Function Lab, [address] [address] [place], Pulm Function Room 1 [address] [facility] [address] 07/14/2024 2:00 PM EDT PulmDiagnostic Pulmonary Function Lab, [address] [address] [place], Pulm Function Room 2 [address] [facility] [place] [address] 07/23/2024 3:20 PM EDT Office Visit Pulmonary Medicine Pratibha Anguiano [address] [place] [address] [address] Chance Zimmerman MD [address] [address] [address] Scheduled Procedures Name Priority Associated Diagnoses Date/Ti [...] exists DISCUSS TOBACCO CESSATION (REFER TO SMARTSET #5399) 10/15/2024 10/15/2023, 05/31/2023, 01/12/2023, Additional history exists Diabetic Eye Exam 12/10/2024 12/10/2023, , 12/10/2023, Additional history exists CKD PHOS USE SMARTSET 48150 12/19/202411/21, 09/12/2023, 05/21/2023, Additional history exists CKD HGB USE SMARTSET 24055 12/23/202412/23, 12/22/2023, 12/21/2023, Additional history exists O2 ASSESSMENT COMPLETED IN PAST YEAR FOR COPD 01/16/2025 01/16/2024 Lipid Panel 04/19/2027 04/19/2022, 12/21, 01/21/2021, Additional history exists Cervical Cancer Screening Discontinued Pap Smear Discontinued 10/10/2016, 10/21, 11/17/2013, Additional history exists Pneumococcal Vaccine: 65+ Years Completed 05/10/2022, 11/17/2013 LUNG CANCER SCREENING - USE SMARTSET 48297 Completed 09/09/2023, 05/22/2023, 12/15/2022, Additional history exists [...] the patient have Health Care Power of Conference Interpreter? No Bag Valve Device? Yes Intubation? No [...] First Alternate Health Care Agent Care Teams Environmental Health Safety Engineer Relationship Specialty Start Date End Date Marcos Maurice PA-C [address] [facility] [place] [phone] PCP - General Physician Resident Medical Officer 11/22/23 documented as of this encounter
--- OUTSIDE RECORDS SUMMARY | 2024-04-14 12:58 | External Medical Summary | Summary of Care ---
Author Name Unknown Organization [facility] Address [address] [facility] [place] [address] Phone [phone] Care Team Providers Care Club Manager Name Role Phone Marcos Maurice PA-C Primary Care Provide r Reason for Visit * Reason Onset Date Comments Test Results 01/14/2024 Encounter Details Date Type Department Care Team (Late st Contact Info) Description 01/14/2024 Telephone Pulmonary Medicine Pratibha Anguiano [address] [place] [phone] Marek Berger PA-C [address] [place] [address] Test Results Allergies Active Allergy Reactions Criticality Noted Date Comments Cortisone Muscle pain Medium 04/09/2017 At site of shot Bee Venom Anaphylaxis High 06/25/2021 Hydrocortisone High 12/25/2021 Other reaction(s): PAIN,UNABLE TO MOVE documented as of this encounter (statuses as of 01/21/2024) Medications Medication Sig Dispensed Refills Start Date [...] Oral Tablet (Crestor)Indications: Cor pulmonale, chronic ([facility]),COPD, group D, by GOLD 2017 classification ([facility]),Hypertensive heart and kidney disease with chronic diastolic congestive heart failure and stage 3a chronic kidney disease ([facility]),Dyslipidemia,Es sential hypertension with goal blood [...] 0.1 % Nasal Solution (Astelin) Administer 1 [place] into nostril in the morning and 1 [place] before bedtime. 30 mL 12 01/12/2023 Active Furosemide 80 MG Oral Tablet (Lasix)Indications:Ge neralized osteoarthritis,Chroni c diastolic heart failure ([facility] [...] of chronic obstructive pulmonary disease (COPD) ([facility]) Take 1 Capsule by mouth [...] Base) MCG/ACT Inhalation Aerosol SolutionIndications:C OPD, severe ([facility]) Take 2 puffs every four hours as [...] as of this encounter (statuses as of 01/21/2024) Active Problems Problem Noted Date Diagnosed Date [...] - TRES o Class D - Inhaled Ojybihpuzztpev-GTEV-XKSZ Combination Inhaler (Trellegy) o PD-4 Inhibitor (Daliresp) [...] 04/21/2021 Last Assessment & Plan: Referral to [employer] for assistance in getting nicoderm patches covered [...] Last Assessment & Plan: 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 Educated on use. Must call [facility] when initiated so further assessment can be made documented as of this encounter (statuses as of 01/21/2024) Immunizations Name Administration Dates Next Due COVID-19 mRNA, LNP-s, No Pre serve, 2-Dose Series (Moderna) 01/28/2021 Pneumococcal Conjugate Vacci ne, 20-valent ([id number]) 05/10/2022 Pneumococcal Polysaccharide PPV23 (Pneumovax) 11/17/2013 Seasonal [...] Telephone Encounter - Yanelis Ghosh LPN - 01/16/2024 9:16 AM EST Nocturnal pulse ox is back for your review. Pt was seen by Dr. Barrientos yesterday and a sleep study was ordered to start with 1 L oxygen. * Telephone Encounter - Marek Berger PA-C - 01/14/2024 4:51 PM EST We will see what he noc ox shows, but based on her ABG with pCO2 < 52, she does not qualify for BiPAP based on COPD criteria. I'm not sure how committed she was to using it anyway, I suspect she would not have met compliance requirements and had it taken back. Please let her know, and still haveher follow up with the sleep clinic for management of her restless legs and insomnia. documented in this encounter Plan of Treatment Upcoming Encounters Date Type Department Care Team (Late st Contact Info) Description 02/08/2024 8:00 AM EDT Office Visit Ophthalmology, [place] [address] [address] [address] Andrea Mcclendon, [address] [facility] [place] [address] Nurse Pratibha Ophthalmology [address] [facility] [place] [address] 02/13/2024 12:20 PM EDT Office Visit [facility], [place] [address] [facility] [place] [address] Letty Villegas CRNP [address] [facility] [place] [address] 02/27/2024 8:00 AM EDT Office Visit Ophthalmology [place] [address] [place] [address] Andrea Mcclendon, 21 [facility] [place] [address] 03/05/2024 8:15 AM EDT Office Visit Ophthalmology [place] [address] [address] [address] Andrea Mcclendon DO [address] [facility] [address] 03/10/2024 8:30 PM EDT PulmDiagnostic Sleep Lab, [facility] [address] [facility] [place] [address] [facility], Sleep Med Night Sleep [address] [facility] [place] [address] 03/26/2024 8:00 AM EDT Office Visit Ophthalmology, [place] [address] [place] [address] Andrea Mcclendon, DO [address] [place] [address] 04/02/2024 9:15 AM EDT Office Visit Ophthalmology, [place] [address] [address] Andrea Mcclendon, DO [address] [place] [address] 04/25/2024 2:15 PM EDT Office Visit Ophthalmology, [place] [address] [address] Andrea Mcclendon, DO [address] [place] [address] 06/18/2024 7:40 AM EDT Office Visit [facility] [address], [place] [address] [facility] [place] [address] Piper Cazares DO [address] [facility] [place] [address] 07/14/2024 1:00 PM EDT PulmDiagnostic Pulmonary Function Lab, [facility] [address] [facility] [address] [facility], Pulm Function Room 1 [address] [facility] [address] 07/14/2024 2:00 PM EDT PulmDiagnostic Pulmonary Function Lab, [facility] [address] [place] [address] [facility], Pulm Function Room 2 [address] [facility] [address] 07/23/2024 3:20 PM EDT Office Visit Pulmonary Medicine Pratibha Anguiano [address] [place] [address] [address] Chance Zimmerman MD [address] [place] [address] [address] Health Maintenance Due Date Last Done Comments [...] exists DISCUSS TOBACCO CESSATION (REFER TO SMARTSET #6013) 10/15/2024 10/15/2023, 05/31/2023, 01/12/2023, Additional history exists Diabetic Eye Exam 12/10/2024 12/10/2023, , 12/10/2023, Additional history exists CKD PHOS USE SMARTSET 22633 12/19/202411/21, 09/12/2023, 05/21/2023, Additional history exists CKD HGB USE SMARTSET 52541 12/23/202412/23, 12/22/2023, 12/21/2023, Additional history exists O2 ASSESSMENT COMPLETED IN PAST YEAR FOR COPD 01/16/2025 01/16/2024 Lipid Panel 04/19/2027 04/19/2022, 12/21, 01/21/2021, Additional history exists Cervical Cancer Screening Discontinued Pap Smear Discontinued 10/10/2016, 10/21, 11/17/2013, Additional history exists Pneumococcal Vaccine: 65+ Years Completed 05/10/2022, 11/17/2013 LUNG CANCER SCREENING - USE SMARTSET 43273 Completed 09/09/2023, 05/22/2023, 12/15/2022, Additional history exists [...] the patient have Health Care Power of Ham Stringer? No Bag Valve Device? Yes Intubation? No [...] Agents on File Name Relationship Healthcare Agent [facility] Martinez GRIGSBY Adult Child First Alternate Health Care Agent Peterlucrecia Valetz Adult Child First Alternate Health Care Agent Jazmine Corona Adult Child First Alternate Health Care Agent Care Teams Club Manager Relationship Specialty Start Date End Date Marcos Maurice PA-C [address] [facility] [place] [phone] PCP - General Physician Mirror Maker 11/22/23 documented as of this encounter
--- OUTSIDE RECORDS SUMMARY | 2024-04-14 12:58 | External Medical Summary | Summary of Care ---
Author Name Unknown Organization [facility] Address [address] [facility] [facility] [place] [address] Phone [phone] Care Team Providers Care Ged Teacher Name Role Phone Marcos Maurice PA-C Primary Care Provide r Reason for Visit * Reason Onset Date Comments Test Results 01/14/2024 Encounter Details Date Type Department Care Team (Late st Contact Info) Description 01/14/2024 Telephone Pulmonary Medicine Pratibha Anguiano [address] [place] [phone] Marek Berger PA-C [address] [place] [address] Test Results Allergies [...] MG Oral Tablet (Crestor)Indications: Cor pulmonale, chronic ([facility]),COPD, group D, by GOLD 2017 classification ([facility]),Hypertensive heart and kidney disease with chronic diastolic congestive heart failure and stage 3a chronic kidney disease ([facility]),Dyslipidemia,Es sential hypertension with goal blood pressure less than 140/90 Take by mouth 1 Tablet in the morning. 90 Tablet 3 09/22/2022 Active Empagliflozin 10 MG Oral Tablet (Jardiance)Indication s:Type 2 diabetes mellitus with stage 3a chronic kidney disease, without long-term current use of insulin ([facility]) Take 1 Tablet by mouth in the morning. 30 Tablet 11 11/22/2022 Active metFORMIN HCl 1000 MG Oral Tablet (Glucophage)Indicatio ns:Type 2 diabetes mellitus with stage 3a chronic kidney disease, without long-term current use of insulin ([facility]) Take 1 Tablet by mouth 2 times a day with morning and evening meals. 60 Tablet 5 11/22/2022 Active Azelastine HCl 0.1 % Nasal Solution (Astelin) Administer 1 [place] into nostril in the morning and 1 [place] before bedtime. 30 mL 12 01/12/2023 Active Furosemide 80 MG Oral Tablet (Lasix)Indications:Ge neralized osteoarthritis,Chroni c diastolic heart failure ([facility]) Take 1 Tablet by mouth in the [...] s:COPD, group D, by GOLD 2017 classification ([facility]) Inhale 1 Vial via nebulizer every 4 hours as needed for Wheezing or Shortness of Breath. 180 mL 11 08/02/2023 Active Cetirizine HCl 10 MG Oral CapsuleIndications:Vi ral URI with cough,Acute exacerbation of chronic obstructive pulmonary disease (COPD) ([facility]) Take 1 Capsule by mouth at bedtime. [...] Base) MCG/ACT Inhalation Aerosol SolutionIndications:C OPD, severe ([facility]) Take 2 puffs every four hours as [...] - TRES o Class D - Inhaled Misfoackvndzva-PBKM-ZKEN Combination Inhaler (Trellegy) o PD-4 Inhibitor (Daliresp) [...] oximeter to monitor SpO2, advised to contact 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 Educated on use. Must call [facility] when initiated so further assessment can be made documented as of this encounter (statuses as of 01/21/2024) Immunizations Name Administration Dates Next Due COVID-19 mRNA, LNP-s, No Pre serve, 2-Dose Series (Moderna) 01/28/2021 Pneumococcal Conjugate Vacci ne, 20-valent ([id number]) 05/10/2022 Pneumococcal Polysaccharide PPV23 (Pneumovax) 11/17/2013 Seasonal [...] encounter Miscellaneous Notes * Telephone Encounter - Marek Berger PA-C - 01/21/2024 4:42 PM EST Her nocturnal oximetry study did show 15 minutes of hypoxia on her baseline 4 L. Best course of action will be to complete the sleep study and get her onto BiPAP that way. Hopefully she is more motivated to use it this time around. * Telephone Encounter - Yanelis Ghosh LPN [...] EDT Office Visit OphthalmologyPratibha [address] [place] [address] Andrea Mcclendon, [place] [address] Nurse Pr[facility]ha Ophthalmology [place] [address] 02/13/2024 12:20 PM EDT [facility] [address] [place] [address] [phone] Letty Villegas CRNP [address] [address] 02/27/2024 8:00 AM EDT Office Visit Pratibha Casey [address] [address] [address] Andrea Mcclendon DO [address] [place] [address] [address] 03/05/2024 8:15 AM EDT Office Visit OphthalmologyPratibha [address] [address] [address] Andrea Mcclendon DO [address] [place] [address] 03/10/2024 8:30 PM EDT PulmDiagnostic Sleep Lab, [facility] [address] [facility] [place] [address] Health System, Sleep Med Night Sleep [address] [place] [address] 03/26/2024 8:00 AM EDT Office Visit Ophthalmology, [place] [address] [place] [address] Andrea Mcclendon, [address] [place] [address] 04/02/2024 9:15 AM EDT Office Visit Carmela [place] [address] [address] Andrea Mcclendon, [address] [place] [address] 04/25/2024 2:15 PM EDT Office Visit Ophthalmology [place] [address] [address] Andrea Mcclendon, [address] [place] [address] 06/18/2024 7:40 AM EDT Office Visit [facility] [address], [place] [address] [place] [address] Piper Cazares, DO [address] [place] [address] 07/14/2024 1:00 PM EDT PulmDiagnostic Pulmonary Function Lab, [facility] [address] [facility] [place] [address] [address], Pulm Function Room 1 [address] [facility] [place] [address] 07/14/2024 2:00 PM EDT PulmDiagnostic Pulmonary Function Lab, [facility] [address] [place] [address] Gl, Pulm Function Room 2 [address] [place] [address] 07/23/2024 3:20 PM EDT Office [facility] [address] [place] [phone] Chance Zimmerman MD [address] [place] [address] [address] Health Maintenance Due Date Last Done Comments [...] exists DISCUSS TOBACCO CESSATION (REFER TO SMARTSET #3964) 10/15/2024 10/15/2023, 05/31/2023, 01/12/2023, Additional history exists Diabetic Eye Exam 12/10/2024 12/10/2023, , 12/10/2023, Additional history exists CKD PHOS USE SMARTSET 10589 12/19/202411/21, 09/12/2023, 05/21/2023, Additional history exists CKD HGB USE SMARTSET 43217 12/23/202412/23, 12/22/2023, 12/21/2023, Additional history exists O2 ASSESSMENT COMPLETED IN PAST YEAR FOR COPD 01/16/2025 01/16/2024 Lipid Panel 04/19/2027 04/19/2022, 12/21, 01/21/2021, Additional history exists Cervical Cancer Screening Discontinued Pap Smear Discontinued 10/10/2016, 10/21, 11/17/2013, Additional history exists Pneumococcal Vaccine: 65+ Years Completed 05/10/2022, 11/17/2013 LUNG CANCER SCREENING - USE SMARTSET 97986 Completed 09/09/2023, 05/22/2023, 12/15/2022, Additional history exists [...] the patient have Health Care Power of Avionics Technician? No Bag Valve Device? Yes Intubation? [...] Agents on File Name Relationship [facility] Martinez MEGAN Adult Child First Alternate Health Care Agent Peter Grigsby Adult Child First Alternate Health Care Agent Jazmine Corona Adult Child First Alternate Health Care Agent Care Teams Ged Teacher Relationship Specialty Start Date End Date Marcos Maurice PA-C [address] [facility] [place] [address] PCP - General Physician Quality Assurance Specialist 11/22/23 documented as of this encounter
--- OUTSIDE RECORDS SUMMARY | 2024-04-14 12:58 | External Medical Summary | Summary of Care ---
Author Name Unknown Organization [facility] Address [address] [place] [address] Phone [phone] Care Team Providers Care Director Of Accounts Payable Name Role Phone JosafatMameananda Caldwell PA-C Primary Care Provide r Reason for Visit * Reason Onset Date Comments Follow Up 01/30/2024 COPD Proven Care Encounter Details Date Type Department Care Team (Late st Contact Info) Description 01/30/2024 Telephone Pulmonary Function Lab, [address] [address] Debra Larsen, WASH HOUSE SUPERVISOR Follow Up (COPD Proven Care ) Allergies Active Allergy Reactions Criticality Noted Date Comments Cortisone Muscle pain Medium 04/09/2017 At site of shot Bee Venom Anaphylaxis High 06/25/2021 Hydrocortisone High 12/25/2021 Other reaction(s): PAIN,UNABLE TO MOVE documented as of this encounter (statuses as of 01/30/2024) Medications Medication Sig Dispensed Refills Start Date [...] MG Oral Tablet (Crestor)Indications: Cor pulmonale, chronic ([facility]),COPD, group D, by GOLD 2017 classification ([facility]),Hypertensive heart and kidney disease with chronic diastolic congestive heart failure and stage 3a chronic kidney disease ([facility]),Dyslipidemia,Es sential hypertension with goal blood pressure less than 140/90 Take by mouth 1 Tablet in the morning. 90 Tablet 3 09/22/2022 Active Empagliflozin 10 MG Oral Tablet (Jardiance)Indication s:Type 2 diabetes mellitus with stage 3a chronic kidney disease, without long-term current use of insulin ([facility]) Take 1 Tablet by mouth in the morning. 30 Tablet 11 11/22/2022 Active metFORMIN HCl 1000 MG Oral Tablet (Glucophage)Indicatio ns:Type 2 diabetes mellitus with stage 3a chronic kidney disease, without long-term current use of insulin ([facility]) Take 1 Tablet by mouth 2 times a day with morning and evening meals. 60 Tablet 5 11/22/2022 Active Azelastine HCl 0.1 % Nasal Solution (Astelin) Administer 1 [place] into nostril in the morning and 1 [place] before bedtime. 30 mL 12 01/12/2023 Active Furosemide 80 MG Oral Tablet (Lasix)Indications:Ge neralized osteoarthritis,Chroni c diastolic heart failure ([facility]) Take 1 Tablet by [...] s:COPD, group D, by GOLD 2017 classification ([facility]) Inhale 1 Vial via [...] as of this encounter (statuses as of 01/30/2024) Active Problems Problem Noted Date Diagnosed Date [...] - TRES o Class D - Inhaled Hznvpjoqvznkek-CKNG-BGFN Combination Inhaler (Melvinegy) o PD-4 Inhibitor (Daliresp) Self-Management plan o [...] oximeter to monitor SpO2, advised to contact [facility] if <90% and titrate as necessary, Tobacco use disorder 04/21/2021 Last Assessment & Plan: Referral to [employer] for assistance in getting nicoderm patches covered [...] Last Assessment & Plan: 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 Educated on use. Must call [facility] when initiated so further assessment can be made documented as of this encounter (statuses as of 01/30/2024) Immunizations Name Administration Dates Next Due COVID-19 mRNA, LNP-s, No Pre serve, 2-Dose Series (Moderna) 01/28/2021 Pneumococcal Conjugate Vacci ne, 20-valent ([id number]) 05/10/2022 Pneumococcal Polysaccharide PPV23 (Pneumovax) 11/17/2013 Seasonal [...] Notes * Telephone Encounter - Debra Larsen, WASH HOUSE SUPERVISOR - 01/30/2024 9:53 AM EDT Follow-Up Phone Call Patient Name: Edna Kebede Discharge Date: 12/23/23 Date of Call: 01/30/2024 Time of Call: 9:53 AM Patient successfully contacted? No, called to f/u to see how patient is feeling this AM. LVM with phone number to return call. documented in this encounter Plan of Treatment Upcoming Encounters Date Type Department Care Team (Latest Contact Info) Description 02/08/2024 8:00 AM EDT Office Visit Ophthalmology, [facility] [address] [place] [address] [address] Andrea Mcclendon DO [address] [address] Nurse Pr[facility]ha Ophthalmology [address] [place] [address] [address] 02/13/2024 12:20 PM EDT Office Visit [facility], [place] [address] [phone] Letty Villegas CRNP [address] [address] 02/26/2024 1:41 PM EDT Hospital Encounter OR [facility], Operating Room, [facility] - 4th Floor [address] [place] [address] Andrea Mcclendon DO [address] [place] [address] 02/26/2024 1:41 PM EDT - 02/26/2024 2:32 PM EDT Surgery OR [facility], Operating Room, [facility] - 4th Floor [address] [place] [address] Andrea Mcclendon DO [address] [place] [address] [address] LEFT EXTRACAPSULAR CATARACT REMOVAL WITH INTRAOCULAR LENS 02/27/2024 8:00 AM EDT Office Visit OphthalmologyPratibha [address] [address] Andrea Mcclendon DO [address] [place] [address] [address] 03/05/2024 9:45 AM EDT [facility] [place] [facility] [address] [address] Andrea Mcclendon DO [address] [place] [address] 03/10/2024 8:30 PM EDT PulmDiagnostic Sleep Lab, [address] [place] [address] [facility], Sleep Med Night Sleep [address] [place] [address] [place] [address] 03/25/2024 9:24 AM EDT Hospital Encounter OR [facility], Operating Room, [facility] - 4th Floor [address] [facility] [place] [address] Andrea Mcclendon DO [address] [place] [address] 03/25/2024 9:24 AM EDT - 03/25/2024 10:15 AM EDT Surgery OR [facility], Operating Room, [facility] - 4th Floor [address] [place] [address] Andrea Mcclendon DO [address] [place] [address] [address] RIGHT EXTRACAPSULAR CATARACT REMOVAL WITH INTRAOCULAR LENS 03/26/2024 8:00 AM EDT Office Visit [facility] [place] [address] [address] Andrea Mcclendon DO [address] [place] [address] [address] 04/02/2024 9:15 AM EDT Office Visit [place] [place] [address] [address] Andrea Mcclendon DO [address] [facility] [place] [address] 04/25/2024 2:15 PM EDT Office Visit Ophthalmology, [place] [address] [address] Andrea Mcclendon, DO [address] [facility] [place] [address] 06/18/2024 7:40 AM EDT Office Visit [facility] [address], [place] [address] [facility] [place] [address] Piper Cazares DO [address] [facility] [place] [address] 07/14/2024 1:00 PM EDT PulmDiagnostic Pulmonary Function Lab, [address] [address] [facility], Pulm Function Room [address] [place] [address] [place] [address] 07/14/2024 2:00 PM EDT PulmDiagnostic Pulmonary Function Lab, [address] [facility] [place] [address] [facility], Pulm Function Room [address] [place], [place] [address] [address] 07/23/2024 3:20 PM EDT [facility] [place] [address] [place] [address] [phone] Chance Zimmerman MD [address] [address] [address] Scheduled Procedures Name Priority Associated Diagnoses Date/Ti [...] exists DISCUSS TOBACCO CESSATION (REFER TO SMARTSET #8524) 10/15/2024 10/15/2023, 05/31/2023, 01/12/2023, Additional history exists Diabetic Eye Exam 12/10/2024 12/10/2023, , 12/10/2023, Additional history exists CKD PHOS USE SMARTSET 52182 12/19/202411/21, 09/12/2023, 05/21/2023, Additional history exists CKD HGB USE SMARTSET 96544 12/23/202412/23, 12/22/2023, 12/21/2023, Additional history exists O2 ASSESSMENT COMPLETED IN PAST YEAR FOR COPD 01/16/2025 01/16/2024 Lipid Panel 04/19/2027 04/19/2022, 12/21, 01/21/2021, Additional history exists Cervical Cancer Screening Discontinued Pap Smear Discontinued 10/10/2016, 10/21, 11/17/2013, Additional history exists Pneumococcal Vaccine: 65+ Years Completed 05/10/2022, 11/17/2013 LUNG CANCER SCREENING - USE SMARTSET 33811 Completed 09/09/2023, 05/22/2023, 12/15/2022, Additional history exists [...] the patient have Health Care Power of Junior Automation Engineer? No Bag Valve Device? Yes Intubation? No [...] Agents on File Name Relationship [facility] Agent [facility] Martinez GRIGSBY Adult Child First Alternate Health Care Agent Peter Grigsby Adult Child First Alternate Health Care Agent Jazmine Corona Adult Child First Alternate Health Care Agent Care Teams Director Of Accounts Payable Relationship Specialty Start Date End Date Marcos Maurice PA-C [address] [facility] [place] [address] PCP - General Physician Operations Research Scientist 11/22/23 documented as of this encounter
--- OUTSIDE RECORDS SUMMARY | 2024-04-14 12:58 | External Medical Summary | Summary of Care ---
Author Name Unknown Organization [facility] Address [address] [place] [address] Phone [phone] Care Team Providers Care Vegetable Handler Name Role Phone Josafat Marcosananda Caldwell PA-C Primary Care Provide r Reason for Visit * Reason Onset Date Comments Advice 01/31/2024 COPD exacerbatio n? Encounter Details Date Type Department Care Team (Late st Contact Info) Description 01/31/2024 Telephone Pulmonary Function Lab, [address] [address] Debra Larsen, STEAM TRAP WORKER Advice (COPD exacerbation? ) Allergies Active Allergy [...] MG Oral Tablet (Crestor)Indications: Cor pulmonale, chronic ([facility]),COPD, group D, by GOLD 2017 classification ([facility]),Hypertensive heart and kidney disease with chronic diastolic congestive heart failure and stage 3a chronic kidney disease ([facility]),Dyslipidemia,Es sential hypertension with goal blood pressure less than 140/90 Take by mouth 1 Tablet in the morning. 90 Tablet 3 09/22/2022 Active Empagliflozin 10 MG Oral Tablet (Jardiance)Indication s:Type 2 diabetes mellitus with stage 3a chronic kidney disease, without long-term current use of insulin ([facility]) Take 1 Tablet by mouth in the morning. 30 Tablet 11 11/22/2022 Active metFORMIN HCl 1000 MG Oral Tablet (Glucophage)Indicatio ns:Type 2 diabetes mellitus with stage 3a chronic kidney disease, without long-term current use of insulin ([facility]) Take 1 Tablet by mouth 2 times a day with morning and evening meals. 60 Tablet 5 11/22/2022 Active Azelastine HCl 0.1 % Nasal Solution (Astelin) Administer 1 [place] into nostril in the morning and 1 [place] before bedtime. 30 mL 12 01/12/2023 Active Furosemide 80 MG Oral Tablet (Lasix)Indications:Ge neralized osteoarthritis,Chroni c diastolic heart failure ([facility]) Take 1 Tablet by [...] s:COPD, group D, by GOLD 2017 classification ([facility]) Inhale 1 Vial via [...] - TRES o Class D - Inhaled Skboskrjecwibt-MRSR-EMDO Combination Inhaler (Sabihay) o PD-4 Inhibitor (Daliresp) [...] to monitor SpO2, advised to contact [facility] if <90% and titrate as necessary, Tobacco use disorder 04/21/2021 Last Assessment & Plan: Referral to [employer] for assistance in getting nicoderm patches covered [...] Last Assessment & Plan: 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 Educated on use. Must call [facility] when initiated so further assessment can be made documented as of this encounter (statuses as of 01/31/2024) Immunizations Name Administration Dates Next Due COVID-19 mRNA, LNP-s, No Pre serve, 2-Dose Series (Moderna) 01/28/2021 Pneumococcal Conjugate Vacci ne, 20-valent ([id number]) 05/10/2022 Pneumococcal Polysaccharide PPV23 (Pneumovax) 11/17/2013 Seasonal [...] medications * Telephone Encounter - Debra Larsen, STEAM TRAP WORKER - 01/31/2024 12:53 PM EDT F/U call [...] Description 02/08/2024 8:00 AM EDT [facility] [address] [address] Andrea Mcclendon DO [address] [address] Nurse Pr[facility] Ophthal[facility] [address] [address] 02/13/2024 12:20 PM EDT Office Visit [facility] [place] [address] [phone] Letty Villegas CRNP [address] [address] 02/26/2024 1:41 PM EDT Hospital Encounter OR [facility], Operating Room, [facility] - 4th Floor [address] [place] [address] Andrea Mcclendon DO [address] [address] 02/26/2024 1:41 PM EDT - 02/26/2024 2:32 PM EDT Surgery OR [facility], Operating Room, [facility] - 4th Floor [address] [address] Andrea Mcclendon, DO [address] [place] [address] LEFT EXTRACAPSULAR CATARACT REMOVAL WITH INTRAOCULAR LENS 02/27/2024 8:00 AM EDT Office Visit Ophthalmology, [place] [address] [place] [address] Andrea Mcclendon, DO [address] [address] 03/05/2024 9:45 AM EDT Office Visit Ophthalmology, [place] [address] [place] [address] Andrea Mcclendon, DO [address] [place] [address] 03/10/2024 8:30 PM EDT PulmDiagnostic Sleep Lab, [address] [place] [address] [facility], Sleep Med Night Sleep [address] [place] [address] [place] [address] 03/25/2024 9:24 AM EDT Hospital Encounter OR [facility], Operating Room, [facility] - 4th Floor [address] [place] [address] Andrea Mcclendon, [address] [address] 03/25/2024 9:24 AM EDT - 03/25/2024 10:15 AM EDT Surgery OR [facility], Operating Room, [facility] - 4th Floor [address] [place] [address] Andrea Mcclendon, [address] [address] RIGHT EXTRACAPSULAR CATARACT REMOVAL WITH INTRAOCULAR LENS 03/26/2024 8:00 AM EDT Office Visit Ophthalmology, [place] [address] [place] [address] Andrea Mcclendon, DO [address] [place] [address] 04/02/2024 9:15 AM EDT Office Visit Ophthalmology, [place] [address] [address] Andrea Mcclendon, DO [address] [place] [address] 04/25/2024 2:15 PM EDT Office Visit [place] [address] [address] Andrea Mcclendon, DO [address] [place] [address] 06/18/2024 7:40 AM EDT Office Visit [facility] [address], [place] [address] [place] [address] Piper Cazares, [address] [place] [address] 07/14/2024 1:00 PM EDT PulmDiagnostic Pulmonary Function Lab, [address] [address] Gl[facility] [address] [facility] [address] 07/14/2024 2:00 PM EDT PulmDiagnostic Pulmonary Function Lab, [address] [address] Gl, Pulm Function Room 2 [address] [facility] [place] [address] 07/23/2024 3:20 PM EDT Office Visit Pulmonary Medicine Pratibha Anguiano [address] [phone] Chance Zimmerman MD [address] [address] Scheduled Procedures Name Priority Associated Diagnoses Date/Ti [...] exists DISCUSS TOBACCO CESSATION (REFER TO SMARTSET #2528) 10/15/2024 10/15/2023, 05/31/2023, 01/12/2023, Additional history exists Diabetic Eye Exam 12/10/2024 12/10/2023, , 12/10/2023, Additional history exists CKD PHOS USE SMARTSET 15418 12/19/202411/21, 09/12/2023, 05/21/2023, Additional history exists CKD HGB USE SMARTSET 14120 12/23/202412/23, 12/22/2023, 12/21/2023, Additional history exists O2 ASSESSMENT COMPLETED IN PAST YEAR FOR COPD 01/16/2025 01/16/2024 Lipid Panel 04/19/2027 04/19/2022, 12/21, 01/21/2021, Additional history exists Cervical Cancer Screening Discontinued Pap Smear Discontinued 10/10/2016, 10/21, 11/17/2013, Additional history exists Pneumococcal Vaccine: 65+ Years Completed 05/10/2022, 11/17/2013 LUNG CANCER SCREENING - USE SMARTSET 62300 Completed 09/09/2023, 05/22/2023, 12/15/2022, Additional history exists [...] the patient have Health Care Power of Classification Analyst? No Bag Valve Device? Yes Intubation? No [...] First Alternate Health Care Agent Care Teams Vegetable Handler Relationship Specialty Start Date End Date Marcos Maurice PA-C [address] [facility] [place] [phone] PCP - General Physician Relay Tester Helper 11/22/23 documented as of this encounter
--- OUTSIDE RECORDS SUMMARY | 2024-04-14 12:58 | External Medical Summary | Summary of Care ---
Author Name Unknown Organization [facility] Address [address] [place] [address] Phone [phone] Care Team Providers Care Paint Pourer Name Role Phone Josafat Marcosananda Caldwell PA-C Primary Care Provide r Reason for Visit * Reason Onset Date Comments Follow Up 01/23/2024 30 day copd prov en care f/u Encounter Details Date Type Department Care Team (Late st Contact Info) Description 01/23/2024 Telephone Pulmonary Function Lab, [facility] [address] [place] [address] Debra Larsen, FREIGHT TALLIER Follow Up (30 day copd proven care f/u/) Allergies Active Allergy Reactions Criticality Noted Date Comments Cortisone Muscle pain Medium 04/09/2017 At site of shot Bee Venom Anaphylaxis High 06/25/2021 Hydrocortisone High 12/25/2021 Other reaction(s): PAIN,UNABLE TO MOVE documented as of this encounter (statuses as of 01/23/2024) Medications Medication Sig Dispensed Refills Start Date [...] D, by GOLD 2017 classification ([facility]),Hypertensive heart and kidney disease with chronic diastolic congestive heart failure and stage 3a chronic kidney disease ([facility]),Dyslipidemia,E ssential hypertension with goal blood pressure less than 140/90 Take by mouth 1 Tablet in the morning. 90 Tablet 3 09/22/2022 Active Empagliflozin 10 MG Oral Tablet (Jardiance)Indicatio ns:Type 2 diabetes mellitus with stage 3a chronic kidney disease, without long-term current use of insulin ([facility]) Take 1 Tablet by mouth in the morning. 30 Tablet 11 11/22/2022 Active metFORMIN HCl 1000 MG Oral Tablet (Glucophage)Indicati ons:Type 2 diabetes mellitus with stage 3a chronic kidney disease, without long-term current use of insulin ([facility]) Take 1 Tablet by mouth 2 times a day with morning and evening meals. 60 Tablet 5 11/22/2022 Active Azelastine HCl 0.1 % Nasal Solution (Astelin) Administer 1 [place] into nostril in the morning and 1 [place] before bedtime. 30 mL 12 01/12/2023 Active Furosemide 80 MG Oral Tablet (Lasix)Indications:G eneralized osteoarthritis,Chron ic diastolic heart failure ([facility]) Take 1 Tablet by mouth [...] D, by GOLD 2017 classification ([facility]) Inhale 1 Vial via nebulizer every 4 hours as needed for Wheezing or Shortness of Breath. 180 mL 11 08/02/2023 Active Cetirizine HCl 10 MG Oral CapsuleIndications:V julio URI with cough,Acute exacerbation of chronic obstructive [...] 3 days 20 Tablet 0 01/16/2024 Active levoFLOXacin 500 MG Oral Tablet Take 1 Tablet by mouth in the morning for 7 days. until gone.. 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 Educated on use. Must call [facility] when initiated so further assessment can be made documented as of this encounter (statuses as of 01/23/2024) Immunizations Name Administration Dates Next Due COVID-19 mRNA, LNP-s, No Pre serve, 2-Dose Series (Moderna) 01/28/2021 Pneumococcal Conjugate Vacci ne, 20-valent ([id number]) 05/10/2022 Pneumococcal Polysaccharide PPV23 (Pneumovax) 11/17/2013 Seasonal [...] Notes * Telephone Encounter - Debra Larsen, FREIGHT TALLIER - 01/23/2024 12:12 PM EST 30 day Follow-Up Phone Call Patient Name: Edna Kebede Discharge Date: 12/23/23 Date of Call: 01/23/2024 Time of Call: 12:12 PM Patient successfully contacted? No,LVM documented in this encounter Plan of Treatment Upcoming Encounters Date Type Department Care Team (Late st Contact Info) Description 02/08/2024 8:00 AM EDT Office Visit Ophthalmology, [place] [address] [address] Andrea Mcclendon, [address] [facility] [place] [address] Nurse Pratibha Ophthalmology [address] [place] [address] 02/13/2024 12:20 PM EDT Office Visit [facility], [place] [address] [facility] [place] [phone] Letty Villegas CRNP [address] [facility] [place] [address] 02/27/2024 8:00 AM EDT Office Visit Carmela [place] [address] [address] Andrea Mcclendon, [address] [facility] [place] [address] 03/05/2024 8:15 AM EDT Office Visit Ophthalmology, [place] [address] [address] Andrea Mcclendon, [address] [facility] [place] [address] 03/10/2024 8:30 PM EDT PulmDiagnostic Sleep Lab, [facility] [address] [facility] [place] [address] Gl, Sleep Med Night Sleep [address] [facility] [address] 03/26/2024 8:00 AM EDT Office Visit Ophthalmology, [place] [address] [place] [address] Andrea Mcclendon, DO [address] [place] [address] 04/02/2024 9:15 AM EDT Office Visit Ophthalmology, [place] [address] [place] [address] Andrea Mcclendon, DO [address] [place] [address] 04/25/2024 2:15 PM EDT Office Visit [place] [address] [address] Andrea Mcclendon, DO [address] [place] [address] 06/18/2024 7:40 AM EDT Office Visit [facility] [address], [place] [address] [place] [address] Piper Cazares DO [address] [facility] [place] [address] 07/14/2024 1:00 PM EDT PulmDiagnostic Pulmonary Function Lab, [address] [address] [address], [facility]m [facility] [address] [facility] [address] 07/14/2024 2:00 PM EDT PulmDiagnostic Pulmonary Function Lab, [address] [address] [address], Pulm Function Room 2 [address] [address] 07/23/2024 3:20 PM EDT Office Visit Pulmonary Medicine Pratibha Anguiano [address] [place] [address] [phone] Chance Zimmerman MD [address] [place] [address] [address] Health Maintenance Due Date Last Done Comments [...] Additional history exists CKD PHOS USE SMARTSET 36937 12/19/202411/21, 09/12/2023, 05/21/2023, Additional history exists CKD HGB USE SMARTSET 38945 12/23/202412/23, 12/22/2023, 12/21/2023, Additional history exists O2 ASSESSMENT COMPLETED IN PAST YEAR FOR COPD 01/16/2025 01/16/2024 Lipid Panel 04/19/2027 04/19/2022, 12/21, 01/21/2021, Additional history exists Cervical Cancer Screening Discontinued Pap Smear Discontinued 10/10/2016, 10/21, 11/17/2013, Additional history exists Pneumococcal Vaccine: 65+ Years Completed 05/10/2022, 11/17/2013 LUNG CANCER SCREENING - USE SMARTSET 36308 Completed 09/09/2023, 05/22/2023, 12/15/2022, Additional history exists [...] the patient have Health Care Power of Buttonhole Maker? No Bag Valve Device? Yes Intubation? No Cardiac Compressions? Yes Defibrillation? Yes Synchronized Cardioversion? Yes External Pacemaker? Yes Cardiac Drugs? Yes Code Status History Code Status Date Activated Date Inactivated Comments Full Code 09/08/2023 4:44 PM 09/13/2023 8:48 PM Th is order reflects the patients wishes and were [...] First Alternate Health Care Agent Care Teams Paint Pourer Relationship Specialty Start Date End Date Marcos Maurice PA-C [address] [facility] [place] [address] PCP - General Physician Utility Accounts Director 11/22/23 documented as of this encounter
--- OUTSIDE RECORDS SUMMARY | 2024-04-14 12:58 | External Medical Summary | Summary of Care ---
Author Name Unknown Organization [facility] [address] [place] [address] Phone [phone] Care Team Providers Care Library Customer Service Clerk Name Role Phone Josafat Marcosananda Caldwell PA-C Primary Care Provide r Reason for Visit * Reason Onset Date Comments Follow Up 01/29/2024 COPD [facility] 30 day f/u Encounter Details Date Type Department Care Team (Late st Contact Info) Description 01/29/2024 Telephone Pulmonary Function Lab, [facility] [address] [place] [address] Debra Larsen, SIGN LETTERER Follow Up (COPD Proven [facility] 30 day f/u ) Allergies Active Allergy Reactions Criticality Noted Date Comments Cortisone Muscle pain Medium 04/09/2017 At site of shot Bee Venom Anaphylaxis High 06/25/2021 Hydrocortisone High 12/25/2021 Other reaction(s): PAIN,UNABLE TO MOVE documented as of this encounter (statuses as of 01/29/2024) Medications Medication Sig Dispensed Refills Start Date [...] Oral Tablet (Crestor)Indications: Cor pulmonale, chronic ([facility]),COPD, group D, by GOLD 2017 classification ([facility]),Hypertensive heart and kidney disease with chronic diastolic congestive heart failure and stage 3a chronic kidney disease ([facility]),Dyslipidemia,Es sential hypertension with goal blood pressure less than 140/90 Take by mouth 1 Tablet in the morning. 90 Tablet 3 09/22/2022 Active Empagliflozin 10 MG Oral Tablet (Jardiance)Indication s:Type 2 diabetes mellitus with stage 3a chronic kidney disease, without long-term current use of insulin ([facility]) Take 1 Tablet by mouth in the morning. 30 Tablet 11 11/22/2022 Active metFORMIN HCl 1000 MG Oral Tablet (Glucophage)Indicatio ns:Type 2 diabetes mellitus with stage 3a chronic kidney disease, without long-term current use of insulin ([facility]) Take 1 Tablet by mouth 2 times a day with morning and evening meals. 60 Tablet 5 11/22/2022 Active Azelastine HCl 0.1 % Nasal Solution (Astelin) Administer 1 Norton into nostril in the morning and 1 Norton before bedtime. 30 mL 12 01/12/2023 Active Furosemide 80 MG Oral Tablet (Lasix)Indications:Ge neralized osteoarthritis,Chroni c diastolic heart failure ([facility]) Take 1 Tablet by [...] group D, by GOLD 2017 classification ([facility]) Inhale 1 Vial via [...] as of this encounter (statuses as of 01/29/2024) Active Problems Problem Noted Date Diagnosed Date [...] - TRES o Class D - Inhaled Vimfrdgcyvlmkd-WIAS-SXLK Combination Inhaler (Trellegy) o PD-4 Inhibitor (Daliresp) [...] oximeter to monitor SpO2, advised to contact [facility] if <90% and titrate as necessary, Tobacco use disorder 04/21/2021 Last Assessment & Plan: Referral to [facility] for assistance in getting nicoderm patches covered [...] Assessment & Plan: Currently followed by medical genetics director--not on any antihistamines currently, has follow [...] as of this encounter (statuses as of 01/29/2024) Resolved Problems Problem Noted Date Diagnosed Date [...] - TRES o Class D - Inhaled Eclxaeweaxunwp-KDTI-IOPF Combination Inhaler (Trellegy) o PD-4 Inhibitor (Daliresp) Self-Management plan o Prednisone 40mg daily for 5 days Rx o High frequency nebulizer treatments every 4-6 hours around the clock Exacerbation plan o Prednisone rescue kit Rescue kit given today. Educated on use. Must call [facility] when initiated so further assessment can be made documented as of this encounter (statuses as of 01/29/2024) Immunizations Name Administration Dates Next Due COVID-19 mRNA, LNP-s, No Pre serve, 2-Dose Series (Moderna) 01/28/2021 Pneumococcal Conjugate Vacci ne, 20-valent ([id number]) 05/10/2022 Pneumococcal Polysaccharide PPV23 (Pneumovax) 11/17/2013 Seasonal [...] Notes * Telephone Encounter - Debra Larsen, SIGN LETTERER - 01/29/2024 4:11 PM EDT 30 day Follow-Up Phone Call Patient Name: Edna Kebede Discharge Date: 12/23/23 Date of Call: 01/29/2024 Time of Call: 4:11 PM Patient successfully contacted? Yes Symptoms/Exposure How is your breathing? More sob today - thinks it may be the weather change - voiced increase in fatigue, a little wheeze. Cough and sputum are baseline. Has not been around anyone that is sick. No increase in weight. Sputum: Color white Sputum Volume: baseline - pt using flutter valve Shortness of Breath: Increase Cough: baseline Fatigue: Increase Baseline Symptoms: sob with exertion Comorbid Conditions: CHF, PHTN, DM, obesity Exposures to irritants (mold, dust, debris, chemicals, pets, etc.): no Smokes: No- using nicotine patches Triggers: weather Readmission Screening Readmission within 30 days?: No Vaccine History Immunization History Administered Date(s) Administered COVID-19 mRNA, LNP-s, No Preserve, 2-Dose Series (Moderna) 01/28/2021 Pneumococcal Conjugate Vaccine, 20-valent ([id number]) 05/10/2022 Pneumococcal Polysaccharide PPV23 (Pneumovax) 11/17/2013 Seasonal Influenza, PF, 6 M & above, IM , (FluLaval or Fluzone) 11/20/2017, 09/10/2019 Seasonal Influenza, Quadrivalent Hd (Fluzone Hd) 09/13/2023 Seasonal Influenza, Quadrivalent, No Preserve, IM 10/10/2016 Seasonal Influenza, Split, IIV3, With Preserve, Inj 11/17/2013, 06/27/2014, 08/20/2015 TDAP (age 10 and older)(Boostrix) 11/17/2013 30 day Follow-Up Next Pulmonary Appointment: 07/23/24 and Plans to attend sleep study 03/10/24 Transportation Difficulty: No Followed by or Eligible for: discharged from Medicated Therapy Respiratory Medications/Use: Trelegy- rinsing mouth, Albuterol neb, Albuterol MDI - using albuterolneb 3-4 hours , NAC, Azithromycin M, W, F , cetrizine Difficulty Affording Respiratory Medications: No Oxygen Use: 02 @ 4 lpm x 24 hours DME: [employer] - pt has pulse oximeter and monitors saturations - 02sats= 90% Noninvasive therapy: sleep test scheduled 03/10/24 Activity Activity Level: ADLs/ iADLs Pulmonary Rehab Program discussed Interested/Eligible for Pulmonary Rehab: No Advice given to patient: Pulmonary regimen reviewed with patient. Reminded patient of upcoming Pulmonary Medicine appointment. Patient verbalized understanding. Encouraged staying active. Does patient need additional follow up? Yes, by telephone within 24-48 hours from 01/29/2024 to see if symptoms have improved Debra Larsen, SANDEEP documented in this encounter Plan of Treatment Upcoming Encounters Date Type Department Care Team (Latest Contact Info) Description 02/08/2024 8:00 AM EDT Office Visit Ophthalmology, [place] [address] [address] Andrea Mcclendon DO [address] [address] Nurse Pratibha Ophthalmology [address] [address] 02/13/2024 12:20 PM EDT Office Visit [facility] [address] [phone] Letty Villegas CRNP [address] [address] 02/26/2024 1:41 PM EDT Hospital Encounter OR GL, Operating Room, [facility] - 4th Floor [address] [place] [address] Andrea Mcclendon DO [address] [address] 02/26/2024 1:41 PM EDT - 02/26/2024 2:32 PM EDT Surgery OR [facility], Operating Room, [facility] - 4th Floor [address] [place] [address] Andrea Mcclendon DO [address] [address] LEFT EXTRACAPSULAR CATARACT REMOVAL WITH INTRAOCULAR LENS 02/27/2024 8:00 AM EDT Office Visit [facility] [address] [address] Andrea Mcclendon, [address] [place] [address] 03/05/2024 8:15 AM EDT Office Visit Ophthalmology [place] [address] [place] [address] Andrea Mcclendon, [address] [place] [address] 03/10/2024 8:30 PM EDT PulmDiagnostic Sleep Lab, [facility] [address] [facility] [place] [address] [facility], Sleep Med Night Sleep [address] [place] [address] [place] [address] 03/25/2024 9:24 AM EDT Hospital Encounter OR [facility], Operating Room, [facility] - 4th Floor [address] [facility] [place] [address] Andrea Mcclendon, [address] [place] [address] 03/25/2024 9:24 AM EDT - 03/25/2024 10:15 AM EDT Surgery OR [facility], Operating Room, [facility] - 4th Floor [address] [facility] [address] Andrea Mcclendon, [address] [place] [address] RIGHT EXTRACAPSULAR CATARACT REMOVAL WITH INTRAOCULAR LENS 03/26/2024 8:00 AM EDT Office Visit Ophthalmology, [place] [address] [place] [address] Andrea Mcclendon, [address] [place] [address] 04/02/2024 9:15 AM EDT Office Visit Ophthalmology [place] [address] [address] Andrea Mcclendon, [address] [address] 04/25/2024 2:15 PM EDT Office Visit [facility] [address] [address] Andrea Mcclendon, DO [address] [address] 06/18/2024 7:40 AM EDT Office Visit [facility], [place] [address] [facility] [place] [address] Piper Cazares DO [address] [facility] [place] [address] 07/14/2024 1:00 PM EDT PulmDiagnostic Pulmonary Function Lab, [address] [facility] [address] [facility], Pulm Function Room 1 [address] [place] [address] 07/14/2024 2:00 PM EDT PulmDiagnostic Pulmonary Function Lab, [address] [place] [address] [facility], Pulm Function Room 2 [address] [place] [address] 07/23/2024 3:20 PM EDT [facility] [address] [phone] Chance Zimmerman MD [address] [address] Scheduled Procedures Name Priority Associated Diagnoses Date/Ti [...] exists DISCUSS TOBACCO CESSATION (REFER TO SMARTSET #1653) 10/15/2024 10/15/2023, 05/31/2023, 01/12/2023, Additional history exists Diabetic Eye Exam 12/10/2024 12/10/2023, , 12/10/2023, Additional history exists CKD PHOS USE SMARTSET 09161 12/19/202411/21, 09/12/2023, 05/21/2023, Additional history exists CKD HGB USE SMARTSET 41076 12/23/202412/23, 12/22/2023, 12/21/2023, Additional history exists O2 ASSESSMENT COMPLETED IN PAST YEAR FOR COPD 01/16/2025 01/16/2024 Lipid Panel 04/19/2027 04/19/2022, 12/21, 01/21/2021, Additional history exists Cervical Cancer Screening Discontinued Pap Smear Discontinued 10/10/2016, 10/21, 11/17/2013, Additional history exists Pneumococcal Vaccine: 65+ Years Completed 05/10/2022, 11/17/2013 LUNG CANCER SCREENING - USE SMARTSET 52863 Completed 09/09/2023, 05/22/2023, 12/15/2022, Additional history exists [...] the patient have Health Care Power of Speech Lang Path? No Bag Valve Device? Yes Intubation? No [...] First Alternate Health Care Agent Care Teams Library Customer Service Clerk Relationship Specialty Start Date End Date Marcos Maurice PA-C [address] [facility] [place] [address] PCP - General Physician Rug Designer 11/22/23 documented as of this encounter
--- OUTSIDE RECORDS SUMMARY | 2024-04-14 12:58 | External Medical Summary | Summary of Care ---
Author Name Unknown Organization [facility] Address [address] [place] [address] Phone [phone] Care Team Providers Care Electroencephalograph Technologist Name Role Phone Marcos Maurice PA-C Primary Care Provide r Reason for Visit * Reason Onset Date Comments Medication Refill 01/31/2024 Encounter Details Date Type Department Care Team (Late st Contact Info) Description 01/31/2024 Refill [facility] [address] [place] [address] Marcos Maurice PA-C [address] [place] [address] COPD, group D, by GOLD 2017 classification ([facility]) Allergies Active Allergy Reactions Criticality Noted Date [...] GASIndications:COPD, group D, by GOLD 2017 classification ([facility]),Chronic hypoxemic respiratory failure (HCC) 2 LPM at bedtime & at rest & 3 LPM with all exertion via n/c DX J 44.9 1 Each 0 07/31/2022 Active Fluticasone Propionate 50 MCG/ACT Nasal Suspension (Flonase) Administer into each nostril 2 Sprays in the morning. 15.8 mL 2 09/22/2022 Active Rosuvastatin Calcium 20 MG Oral Tablet (Crestor)Indications: Cor pulmonale, chronic ([facility]),COPD, group D, by GOLD 2017 classification ([facility]),Hypertensive heart and kidney disease with chronic diastolic congestive heart failure and stage 3a chronic kidney disease ([facility]),Dyslipidemia,Es sential hypertension with goal blood [...] 0.1 % Nasal Solution (Astelin) Administer 1 Velarde into nostril in the morning and 1 Velarde before bedtime. 30 mL 12 01/12/2023 Active Furosemide 80 MG Oral Tablet (Lasix)Indications:Ge neralized osteoarthritis,Chroni c diastolic heart failure ([facility]) Take [...] s:COPD, group D, by GOLD 2017 classification ([facility]) Inhale 1 Vial via nebulizer [...] XL)Indications:MDD (major depressive disorder), recurrent episode, mild ([facility]) Take 1 Tablet by mouth in the morning. 90 Tablet 1 09/21/2023 Active Albuterol Sulfate HFA 108 (90 Base) MCG/ACT Inhalation Aerosol SolutionIndications:C OPD, severe ([facility]) Take 2 puffs every four hours as [...] disorder),Recurrent major depressive disorder, in partial remission ([facility]) Take 1 Tablet by mouth in the morning. 90 Tablet 3 01/02/2024 Active predniSONE 20 MG Oral Tablet (Deltasone)Indication s:COPD exacerbation ([facility]) Take 3 tabs for 3 days, 2 [...] - TRES o Class D - Inhaled Oihwduuhmvrcwp-HLBB-NGTQ Combination Inhaler (Trellegy) o PD-4 Inhibitor (Daliresp) [...] monitor SpO2, advised to contact [facility] if <90% and titrate as necessary, Tobacco use disorder 04/21/2021 Last Assessment & Plan: Referral to [facility] for assistance in getting nicoderm patches covered [...] Last Assessment & Plan: Currently followed by database marketing manager--not on any antihistamines currently, has follow [...] Recent Labs Units 10/03/22 1356 09/17/22201709/17/22 1416 04/17/22210603/09/22 1355 LEFT VENTRICULAR EJECTION FRACTION % -- [...] - TRES o Class D - Inhaled Xnssbetgavkjjr-WDJG-WASL Combination Inhaler (Trellegy) o PD-4 Inhibitor (Daliresp) Self-Management plan o Prednisone 40mg daily for 5 days Rx o High frequency nebulizer treatments every 4-6 hours around the clock Exacerbation plan o Prednisone rescue kit Rescue kit given today. Educated on use. Must call [facility] when initiated so further assessment can be made documented as of this encounter (statuses as of 01/31/2024) Immunizations Name Administration Dates Next Due COVID-19 mRNA, LNP-s, No Pre serve, 2-Dose Series (Moderna) 01/28/2021 Pneumococcal Conjugate Vacci ne, 20-valent ([id number]) 05/10/2022 Pneumococcal Polysaccharide PPV23 (Pneumovax) 11/17/2013 Seasonal [...] encounter Miscellaneous Notes * Telephone Encounter - Nurys Morley CPhT - 01/31/2024 11:26 AM EDT Pt calling to request Albuterol Sulfate (2.5 MG/3ML) 0.083% Inhalation Nebulization Solution (Proventil) . Informed pt that RX is available at their pharmacy. Pt verbalized understanding and stated they will check with their pharmacy regarding this medication. Thank you, Nurys Morley Mortgage Field Inspector [employer] 01/31/2024, 11:27 AM documented in this encounter Plan of Treatment Upcoming Encounters Date Type Department Care Team (Latest Contact Info) Description 02/08/2024 8:00 AM EDT Office Visit Ophthalmology, [place] [address] [address] Andrea Mcclendon DO [address] [address] Nurse Pratibha Ophthalmology [address] [address] 02/13/2024 12:20 PM EDT Office Visit [facility] [address] [phone] Letty Villegas CRNP [address] [address] 02/26/2024 1:41 PM EDT Hospital Encounter OR GL, Operating Room, [facility] - 4th Floor [address] [place] [address] Andrea Mcclendon DO [address] [address] 02/26/2024 1:41 PM EDT - 02/26/2024 2:32 PM EDT Surgery OR [facility], Operating Room, [facility] - 4th Floor [address] [place] [address] Andrea Mcclendon DO [address] [address] LEFT EXTRACAPSULAR CATARACT REMOVAL WITH INTRAOCULAR LENS 02/27/2024 8:00 AM EDT Office Visit [facility] [address] [address] Andrea Mcclendon, [address] [place] [address] 03/05/2024 9:45 AM EDT Office Visit [facility] [address] [place] [address] Andrea Mcclendon, [address] [place] [address] 03/10/2024 8:30 PM EDT PulmDiagnostic Sleep Lab, [facility] [address] [facility] [place] [address] [facility], Sleep Med Night Sleep [address] [place] [address] [place] [address] 03/25/2024 9:24 AM EDT Hospital Encounter OR [facility], Operating Room, [facility] - 4th Floor [address] [facility] [place] [address] Andrea Mcclendon, [address] [address] 03/25/2024 9:24 AM EDT - 03/25/2024 10:15 AM EDT Surgery OR [facility], Operating Room, [facility] - 4th Floor [address] [place] [address] Andrea Mcclendon, [address] [place] [address] RIGHT EXTRACAPSULAR CATARACT REMOVAL WITH INTRAOCULAR LENS 03/26/2024 8:00 AM EDT Office Visit Ophthalmology, [place] [address] [place] [address] Andrea Mcclendon, [address] [place] [address] 04/02/2024 9:15 AM EDT Office Visit Ophthalmology [place] [address] [address] Andrea Mcclendon, [address] [address] 04/25/2024 2:15 PM EDT Office Visit [facility]mology[facility]ie[facility] [address] [address] Andrea Mcclendon, DO [address] [place] [address] 06/18/2024 7:40 AM EDT Office Visit [facility], [place] [address] [facility] [place] [address] Piper Cazares DO [address] [facility] [place] [address] 07/14/2024 1:00 PM EDT PulmDiagnostic Pulmonary Function Lab, [address] [facility] [address] [facility], Pulm Function Room [address] [place] [address] [place] [address] 07/14/2024 2:00 PM EDT PulmDiagnostic Pulmonary Function Lab, [address] [place] [address] [facility], Pulm Function Room 2 [address] [place] [address] 07/23/2024 3:20 PM EDT Office [facility] [address] [phone] Chance Zimmerman MD [address] [address] Scheduled Procedures Name Priority Associated Diagnoses Date/Ti [...] exists DISCUSS TOBACCO CESSATION (REFER TO SMARTSET #3295) 10/15/2024 10/15/2023, 05/31/2023, 01/12/2023, Additional history exists Diabetic Eye Exam 12/10/2024 12/10/2023, , 12/10/2023, Additional history exists CKD PHOS USE SMARTSET 45875 12/19/202411/21, 09/12/2023, 05/21/2023, Additional history exists CKD HGB USE SMARTSET 93344 12/23/202412/23, 12/22/2023, 12/21/2023, Additional history exists O2 ASSESSMENT COMPLETED IN PAST YEAR FOR COPD 01/16/2025 01/16/2024 Lipid Panel 04/19/2027 04/19/2022, 12/21, 01/21/2021, Additional history exists Cervical Cancer Screening Discontinued Pap Smear Discontinued 10/10/2016, 10/21, 11/17/2013, Additional history exists Pneumococcal Vaccine: 65+ Years Completed 05/10/2022, 11/17/2013 LUNG CANCER SCREENING - USE SMARTSET 61779 Completed 09/09/2023, 05/22/2023, 12/15/2022, Additional history exists [...] the patient have Health Care Power of Ammonia Refrigeration Worker? No Bag Valve Device? Yes Intubation? No [...] File Name Relationship Healthcare Agent [facility] Communication Martinez GRIGSBY Adult Child First Alternate Health Care Agent Peter Seb Adult Child First Alternate Health Care Agent Jazmine Corona Adult Child First Alternate Health Care Agent Care Teams Electroencephalograph Technologist Relationship Specialty Start Date End Date Marcos Maurice PA-C [address] [facility] [place] [phone] PCP - General Physician Dry House Tender 11/22/23 documented as of this encounter
--- OUTSIDE RECORDS SUMMARY | 2024-04-14 12:58 | External Medical Summary | Summary of Care ---
Author Name Unknown Organization [facility] Address [address] [facility] [place] [address] Phone [phone] Care Team Providers Care Contract Serviceman Name Role Phone Marcos Maurice PA-C Primary Care Provide r Reason for Visit * Reason Onset Date Comments Test Results 01/14/2024 Encounter Details Date Type Department Care Team (Late st Contact Info) Description 01/14/2024 Telephone Pulmonary Medicine Pratibha Anguiano [address] [place] [phone] Marek Berger PA-C [address] [place] [address] Test Results Allergies Active Allergy Reactions Criticality Noted Date Comments Cortisone Muscle pain Medium 04/09/2017 At site of shot Bee Venom Anaphylaxis High 06/25/2021 Hydrocortisone High 12/25/2021 Other reaction(s): PAIN,UNABLE TO MOVE documented as of this encounter (statuses as of 01/22/2024) Medications Medication Sig Dispensed Refills Start Date [...] MG Oral Tablet (Crestor)Indications: Cor pulmonale, chronic ([facility]),COPD, group D, by GOLD 2017 classification ([facility]),Hypertensive heart and kidney disease with chronic diastolic congestive heart failure and stage 3a chronic kidney disease ([facility]),Dyslipidemia,Es sential hypertension with goal blood pressure less than 140/90 Take by mouth 1 Tablet in the morning. 90 Tablet 3 09/22/2022 Active Empagliflozin 10 MG Oral Tablet (Jardiance)Indication s:Type 2 diabetes mellitus with stage 3a chronic kidney disease, without long-term current use of insulin ([facility]) Take 1 Tablet by mouth in the morning. 30 Tablet 11 11/22/2022 Active metFORMIN HCl 1000 MG Oral Tablet (Glucophage)Indicatio ns:Type 2 diabetes mellitus with stage 3a chronic kidney disease, without long-term current use of insulin ([facility]) Take 1 Tablet by mouth 2 times a day with morning and evening meals. 60 Tablet 5 11/22/2022 Active Azelastine HCl 0.1 % Nasal Solution (Astelin) Administer 1 [place] into nostril in the morning and 1 [place] before bedtime. 30 mL 12 01/12/2023 Active Furosemide 80 MG Oral Tablet (Lasix)Indications:Ge neralized osteoarthritis,Chroni c diastolic heart failure ([facility]) Take 1 Tablet by mouth [...] s:COPD, group D, by GOLD 2017 classification ([facility]) Inhale 1 Vial via nebulizer every 4 hours as needed for Wheezing or Shortness of Breath. 180 mL 11 08/02/2023 Active Cetirizine HCl 10 MG Oral CapsuleIndications:Vi ral URI with cough,Acute exacerbation of chronic obstructive pulmonary disease (COPD) ([facility]) Take 1 Capsule by mouth at [...] Base) MCG/ACT Inhalation Aerosol SolutionIndications:C OPD, severe ([facility]) Take 2 puffs every four hours [...] as of this encounter (statuses as of 01/22/2024) Active Problems Problem Noted Date Diagnosed Date [...] - TRES o Class D - Inhaled Yykeinfpxnxwav-WTBD-BWDZ Combination Inhaler (Trellegy) o PD-4 Inhibitor (Daliresp) [...] oximeter to monitor SpO2, advised to contact [facility] if <90% and titrate as necessary, Tobacco use disorder 04/21/2021 Last Assessment & Plan: Referral to [employer] for assistance in getting nicoderm patches covered [...] Last Assessment & Plan: Currently followed by security intern--not on any antihistamines currently, has follow up [...] as of this encounter (statuses as of 01/22/2024) Resolved Problems Problem Noted Date Diagnosed Date [...] - TRES o Class D - Inhaled Dfxbiinwfzpdvb-OZNV-RRQQ Combination Inhaler (Trellegy) o PD-4 Inhibitor (Daliresp) Self-Management plan o Prednisone 40mg daily for 5 days Rx o High frequency nebulizer treatments every 4-6 hours around the clock Exacerbation plan o Prednisone rescue kit Rescue kit given today. Educated on use. Must call [facility] when initiated so further assessment can be made documented as of this encounter (statuses as of 01/22/2024) Immunizations Name Administration Dates Next Due COVID-19 mRNA, LNP-s, No Pre serve, 2-Dose Series (Moderna) 01/28/2021 Pneumococcal Conjugate Vacci ne, 20-valent ([id number]) 05/10/2022 Pneumococcal Polysaccharide PPV23 (Pneumovax) 11/17/2013 Seasonal [...] Telephone Encounter - Yanelis Ghosh LPN - 01/22/2024 11:36 AM EST Pt aware of the noc ox results and the need to have the BiPAP titration study that Dr. Barrientos ordered for her on 03/10/24. She understands that even with the 4 L of oxygen at night her saturations are still going too low. She had no further questions at this time. * Telephone Encounter - Marek Berger PA-C [...] EDT Office Visit OphthalmologyPratibha [address] [place] [address] Andrea Mcclendon [place] [address] Nurse Pratibha Ophthalmology [address] [place] [address] 02/13/2024 12:20 PM EDT [place] [phone] Letty Villegas CRNP [address] [place] [address] 02/27/2024 8:00 AM EDT Office [place] [address] Andrea Mcclendon, [address] [place] [address] 03/05/2024 8:15 AM EDT Office Visit Ophthalmology, [place] [address] [place] [address] Andrea Mcclendon, [address] [facility] [place] [place] [address] 03/10/2024 8:30 PM EDT PulmDiagnostic Sleep Lab, [facility] [address] [facility] [place] [address] [facility], Sleep Med Night Sleep [address] [facility] [address] 03/26/2024 8:00 AM EDT Office Visit Ophthalmology, [place] [address] [place] [address] Andrea Mcclendon, [address] [facility] [place] [address] 04/02/2024 9:15 AM EDT Office Visit Carmela, [place] [address] [place] [address] Andrea Mcclendon, 21 [facility] [place] [address] 04/25/2024 2:15 PM EDT Office Visit Ophthalmology, [place] [address] [address] [address] Andrea Mcclendon, 21 [facility] [place] [address] 06/18/2024 7:40 AM EDT Office Visit [facility] [address], Ose[address] [facility] [place] [address] Debora Piperalissa Avitia, [address] [facility] [place] [address] 07/14/2024 1:00 PM EDT PulmDiagnostic Pulmonary Function Lab, [facility] 400 [place] [address] Gl, Pulm Function Room 1 400 [place] [address] 07/14/2024 2:00 PM EDT PulmDiagnostic Pulmonary Function Lab, [facility] 400 [place] [address] [facility], Pulm Function Room 2 400 [place] [address] 07/23/2024 3:20 PM EDT [facility] [place] [address] [place] [phone] Chance Zimmerman MD [address] [place] [address] Health Maintenance Due Date Last Done Comments Alpha-1 Antitrypsin 1976 Diabetic Foot Exam 1976 Cologuard 2003 Sigmoidoscopy 2003 Zoster Vaccines (1 of 2) 2008 Fecal Occult Blood Test 11/17/2014 11/17/2013 Mammogram 11/27/2018 11/27/2017, 12/04/2016, 12/05/2013 Colonoscopy 09/20/2020 09/20/2010 Colorectal Cancer Screening 09/20/2020 *ADVANCE DIRECTIVE NOT ON FILE 04/29/2022 Albumin/Creatinine Ratio 02/03/2023 02/03/2022, 06/19 Depression Screening 02/20/2023 02/20/2022 COVID-19 Vaccine (2 - 2023-24 season) 2023 01/28/2021 DXA Scan 2023 DTaP,Tdap,and Td Vaccines (2 - Td or Tdap) 11/17/2023 11/17/2013 HbA1c 06/19/2024 12/20/2023, 08/20, 05/22/2023, Additional history exists GFR 06/22/2024 12/23/2023, 01/2024, 12/21/2023, Additional history exists DISCUSS TOBACCO CESSATION (REFER TO SMARTSET #3291) 10/15/2024 10/15/2023, 05/31/2023, 01/12/2023, Additional history exists Diabetic Eye Exam 12/10/2024 12/10/2023, , 12/10/2023, Additional history exists CKD PHOS USE SMARTSET 61436 12/19/202411/21, 09/12/2023, 05/21/2023, Additional history exists CKD HGB USE SMARTSET 00579 12/23/202412/23, 12/22/2023, 12/21/2023, Additional history exists O2 ASSESSMENT COMPLETED IN PAST YEAR FOR COPD 01/16/2025 01/16/2024 Lipid Panel 04/19/2027 04/19/2022, 12/21, 01/21/2021, Additional history exists Cervical Cancer Screening Discontinued Pap Smear Discontinued 10/10/2016, 10/21, 11/17/2013, Additional history exists Pneumococcal Vaccine: 65+ Years Completed 05/10/2022, 11/17/2013 LUNG CANCER SCREENING - USE SMARTSET 77690 Completed 09/09/2023, 05/22/2023, 12/15/2022, Additional history exists [...] the patient have Health Care Power of Bituminous Paving Machine Operator? No Bag Valve Device? Yes [...] First Alternate Health Care Agent Care Teams Contract Serviceman Relationship Specialty Start Date End Date Marcos Maurice PA-C [address] [facility] [place] [address] PCP - General Physician Pediatric Pathologist 11/22/23 documented as of this encounter
--- OUTSIDE RECORDS SUMMARY | 2024-04-14 12:59 | External Medical Summary | Summary of Care ---
Author Name Unknown Organization [facility] Address [address] [place] [address] Phone [phone] Care Team Providers Care Keypunch Operator Name Role Phone Marcos Maurice PA-C Primary Care Provide r Reason for Visit * Reason Onset Date Comments Home Health 01/17/2024 Encounter Details Date Type Department Care Team (Late st Contact Info) Description 01/17/[address] Das[address]va [address] [place] [address] Marcos Maurice PA-C [address] [facility] [place] [address] Home Health Allergies Active Allergy Reactions Criticality Noted Date Comments Cortisone Muscle pain Medium 04/09/2017 At site of shot Bee Venom Anaphylaxis High 06/25/2021 Hydrocortisone High 12/25/2021 Other reaction(s): PAIN,UNABLE TO MOVE documented as of this encounter (statuses as of 01/18/2024) Medications Medication Sig Dispensed Refills Start Date [...] Tablet (Crestor)Indications :Cor pulmonale, chronic ([facility]),COPD, group D, by GOLD 2017 classification ([facility]),Hypertensive heart and kidney disease with chronic diastolic congestive heart failure and stage 3a chronic kidney disease ([facility]),Dyslipidemia,E ssential hypertension with goal blood pressure less than 140/90 Take by mouth 1 Tablet in the morning. 90 Tablet 3 09/22/2022 Active Empagliflozin 10 MG Oral Tablet (Jardiance)Indicatio ns:Type 2 diabetes mellitus with stage 3a chronic kidney disease, without long-term current use of insulin ([facility]) Take 1 Tablet by mouth in the morning. 30 Tablet 11 11/22/2022 Active metFORMIN HCl 1000 MG Oral Tablet (Glucophage)Indicati ons:Type 2 diabetes mellitus with stage 3a chronic kidney disease, without long-term current use of insulin ([facility]) Take 1 Tablet by mouth 2 times a day with morning and evening meals. 60 Tablet 5 11/22/2022 Active Azelastine HCl 0.1 % Nasal Solution (Astelin) Administer 1 [place] into nostril in the morning and 1 [place] before bedtime. 30 mL 12 01/12/2023 Active Furosemide 80 MG Oral Tablet (Lasix)Indications:G eneralized osteoarthritis,Chron ic diastolic heart failure ([facility]) Take 1 Tablet by mouth [...] D, by GOLD 2017 classification ([facility]) Inhale 1 Vial via nebulizer every 4 hours as needed for Wheezing or Shortness of Breath. 180 mL 11 08/02/2023 Active Cetirizine HCl 10 MG Oral CapsuleIndications:V julio ROOTI with cough,Acute exacerbation of chronic obstructive pulmonary [...] as of this encounter (statuses as of 01/18/2024) Active Problems Problem Noted Date Diagnosed Date [...] - TRES o Class D - Inhaled Cdlaevlkwdtngz-SDDT-RYQW Combination Inhaler (Trellegy) o PD-4 Inhibitor (Daliresp) [...] oximeter to monitor SpO2, advised to contact [facility] if <90% and titrate as necessary, Tobacco use disorder 04/21/2021 Last Assessment & Plan: Referral to [employer] for assistance in getting nicoderm patches covered [...] Last Assessment & Plan: Currently followed by coin wrapping machine operator--not on any antihistamines currently, has [...] as of this encounter (statuses as of 01/18/2024) Resolved Problems Problem Noted Date Diagnosed Date [...] - TRES o Class D - Inhaled Ddyyjlhyrgmzxz-XWTN-GRHV Combination Inhaler (Trellegy) o PD-4 Inhibitor (Daliresp) Self-Management plan o Prednisone 40mg daily for 5 days Rx o High frequency nebulizer treatments every 4-6 hours around the clock Exacerbation plan o Prednisone rescue kit Rescue kit given today. Educated on use. Must call [facility] when initiated so further assessment can be made documented as of this encounter (statuses as of 01/18/2024) Immunizations Name Administration Dates Next Due COVID-19 mRNA, LNP-s, No Pre serve, 2-Dose Series (Moderna) 01/28/2021 Pneumococcal Conjugate Vacci ne, 20-valent ([id number]) 05/10/2022 Pneumococcal Polysaccharide PPV23 (Pneumovax) 11/17/2013 Seasonal [...] encounter Miscellaneous Notes * Telephone Encounter - Piper Cazares DO - 01/18/2024 3:37 PM EST sent * Telephone Encounter - Edith Ramírez LPN - 01/17/2024 2:02 PM EST Concerns Annette RN, Calling from: [facility] Report/Concerns of: nicotine patches to quit smoking Symptoms: none Vitals: T 97.6 P 96 RR 18 BP 118/60 SP O2 96 Lung sounds 02 @ 4 lpm diminished. Weight n/a Blood sugar 197 Narrative: Annette calling from [facility]. Patient would like to quit smoking. Patches are too expensiveover the counter. Asking if script can be sent so it is covered by insurance. Call back Annette with any advice or orders at Please fax new orders to [phone] documented in this encounter Plan of Treatment Upcoming Encounters Date Type Department Care Team (Late st Contact Info) Description 02/08/2024 8:00 AM EDT Office Visit OphthalmologyPratibha [address] [place] [address] Andrea Mcclendon DO [address] [place] [address] Nurse Pratibha Ophthalmology [address] [place] [address] 02/13/2024 12:20 PM EDT Office Visit Family Pratibha Juarez [address] [place] [phone] Letty Villegas CRNP [address] [place] [address] 02/27/2024 8:00 AM EDT Office Visit OphthalmologyPratibha [address] [place] [address] Andrea Mcclendon DO [address] [place] [address] 03/05/2024 8:15 AM EDT Office Visit Ophthalmology, [place] [address] [place] [address] Andrea Mcclendon, [address] [place] [address] 03/10/2024 8:30 PM EDT PulmDiagnostic Sleep Lab, [facility] [address] [facility] [place] [address] [facility], Sleep Med Night Sleep 400 [facility] [address] 03/26/2024 8:00 AM EDT Office Visit Ophthalmology, [place] [address] [place] [address] Andrea Mcclendon, [address] [place] [address] 04/02/2024 9:15 AM EDT Office Visit Ophthalmology, [place] [address] [place] [address] Andrea Mcclendon, [address] [place] [address] 04/25/2024 2:15 PM EDT Office Visit Ophthalmology, [place] [address] [place] [address] Andrea Mcclendon, 21 [facility] [place] [address] 06/18/2024 7:40 AM EDT Office Visit [facility] [address], Osei [address] [place] [address] Piper Cazares DO [address] [place] [address] 07/14/2024 1:00 PM EDT PulmDiagnostic Pulmonary Function Lab, [facility] [address] [facility] [address] Gl, Pul Function Room 1 [address] [facility] [place] [address] 07/14/2024 2:00 PM EDT PulmDiagnostic Pulmonary Function Lab, [facility] [address] [facility] [place] [address] [facility], Pul Function Room [address] [facility] [address] 07/23/2024 3:20 PM EDT Office [facility] [place] [address] [place] [phone] Chance Zimmerman MD [address] [facility] [place] [address] Health Maintenance Due Date Last Done Comments [...] Additional history exists CKD PHOS USE SMARTSET 70965 12/19/202411/21, 09/12/2023, 05/21/2023, Additional history exists CKD HGB USE SMARTSET 62498 12/23/202412/23, 12/22/2023, 12/21/2023, Additional history exists O2 ASSESSMENT COMPLETED IN PAST YEAR FOR COPD 01/16/2025 01/16/2024 Lipid Panel 04/19/2027 04/19/2022, 12/21, 01/21/2021, Additional history exists Cervical Cancer Screening Discontinued Pap Smear Discontinued 10/10/2016, 10/21, 11/17/2013, Additional history exists Pneumococcal Vaccine: 65+ Years Completed 05/10/2022, 11/17/2013 LUNG CANCER SCREENING - USE SMARTSET 74568 Completed 09/09/2023, 05/22/2023, 12/15/2022, Additional history exists [...] as of this encounter Visit Diagnoses Diagnosis COPD exacerbation (HCC)- Primary Obstructive chronic bronchitis with exacerbation Tobacco use disorder documented in this encounter Advance Directives Latest [...] the patient have Health Care Power of Belt Loop Machine Operator? No Bag Valve Device? Yes [...] Child First Alternate Health Care Agent Peterlucrecia Grigsby Adult Child First Alternate Health Care Agent Jazmine Corona Adult Child First Alternate Health Care Agent Care Teams Keypunch Operator Relationship Specialty Start Date End Date Marcos Maurice PA-C [address] [facility] [place] [address] PCP - General Physician Inlayer 11/22/23 documented as of this encounter
--- OUTSIDE RECORDS SUMMARY | 2024-04-14 12:59 | External Medical Summary | Summary of Care ---
Author Name Unknown Organization [facility] Address [address] [facility] [place] [address] Phone [phone] Care Team Providers Care Associate Vice President Name Role Phone Marcos Maurice PA-C Primary Care Provide r Reason for Visit * Reason Onset Date Comments Test Results 01/14/2024 Encounter Details Date Type Department Care Team (Late st Contact Info) Description 01/14/2024 Telephone Pulmonary Medicine Pratibha Anguiano [address] [place] [phone] Marek Berger PA-C [address] [place] [address] Test Results Allergies Active Allergy Reactions Criticality Noted Date Comments Cortisone Muscle pain Medium 04/09/2017 At site of shot Bee Venom Anaphylaxis High 06/25/2021 Hydrocortisone High 12/25/2021 Other reaction(s): PAIN,UNABLE TO MOVE documented as of this encounter (statuses as of 01/16/2024) Medications Medication Sig Dispensed Refills Start Date [...] Oral Tablet (Crestor)Indications: Cor pulmonale, chronic ([facility]),COPD, group D, by GOLD 2017 classification ([facility]),Hypertensive heart and kidney disease with chronic diastolic congestive heart failure and stage 3a chronic kidney disease ([facility]),Dyslipidemia,Es sential hypertension with goal blood [...] 0.1 % Nasal Solution (Astelin) Administer 1 [place] into nostril in the morning and 1 [place] before bedtime. 30 mL 12 01/12/2023 Active Furosemide 80 MG Oral Tablet (Lasix)Indications:Ge neralized osteoarthritis,Chroni c diastolic heart failure ([facility]) [...] of chronic obstructive pulmonary disease (COPD) ([facility]) Take 1 Capsule by mouth [...] MCG/ACT Inhalation Aerosol SolutionIndications:C OPD, severe ([facility]) Take 2 puffs every four [...] as of this encounter (statuses as of 01/16/2024) Active Problems Problem Noted Date Diagnosed Date [...] - TRES o Class D - Inhaled Hcohjusnztczdd-OXEC-CDKC Combination Inhaler (Trellegy) o PD-4 Inhibitor (Daliresp) [...] oximeter to monitor SpO2, advised to contact [facility] if <90% and titrate as necessary, Tobacco use disorder 04/21/2021 Last Assessment & Plan: Referral to [employer] for assistance in getting nicoderm patches covered [...] Last Assessment & Plan: 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 Educated on use. Must call [facility] when initiated so further assessment can be made documented as of this encounter (statuses as of 01/16/2024) Immunizations Name Administration Dates Next Due COVID-19 mRNA, LNP-s, No Pre serve, 2-Dose Series (Moderna) 01/28/2021 Pneumococcal Conjugate Vacci ne, 20-valent ([id number]) 05/10/2022 Pneumococcal Polysaccharide PPV23 (Pneumovax) 11/17/2013 Seasonal [...] Care Team (Late st Contact Info) Description 01/16/2024 12:20 PM EST [facility] [address] [place] [address] Piper Cazares, DO [address] [place] [address] 03/10/2024 8:30 PM EDT PulmDiagnostic Sleep Lab, [facility] [address] [facility] [place] [address] [facility], Sleep Med Night Sleep [address] [facility] [place] [address] 06/18/2024 7:40 AM EDT Office Visit [facility] Benny Black BrownO[address]i [address] [place] [address] Piper Cazares, DO [address] [place] [address] 07/14/2024 1:00 PM EDT PulmDiagnostic Pulmonary Function Lab, [facility] [address] [place] [address] [facility], Pulm Function Room 1 [address] [place] [address] 07/14/2024 2:00 PM EDT PulmDiagnostic Pulmonary Function Lab, [facility] [address] [facility] [place] [address] [facility], Pulm Function Room [address] [facility] [place] [address] 07/23/2024 3:20 PM EDT Office Visit Pulmonary Medicine Brodie Anguiano[address] [place] [phone] Chance Zimmerman MD [address] [place] [address] Health Maintenance Due Date Last Done Comments [...] Additional history exists CKD PHOS USE SMARTSET 46798 12/19/202411/21, 09/12/2023, 05/21/2023, Additional history exists CKD HGB USE SMARTSET 92669 12/23/202412/23, 12/22/2023, 12/21/2023, Additional history exists O2 ASSESSMENT COMPLETED IN PAST YEAR FOR COPD 01/07/2025 01/07/2024 Lipid Panel 04/19/2027 04/19/2022, 12/21, 01/21/2021, Additional history exists Cervical Cancer Screening Discontinued Pap Smear Discontinued 10/10/2016, 10/21, 11/17/2013, Additional history exists Pneumococcal Vaccine: 65+ Years Completed 05/10/2022, 11/17/2013 LUNG CANCER SCREENING - USE SMARTSET 41589 Completed 09/09/2023, 05/22/2023, 12/15/2022, Additional history exists [...] the patient have Health Care Power of Banquet Line Cook? No Bag Valve Device? Yes Intubation? No [...] First Alternate Health Care Agent Care Teams Associate Vice President Relationship Specialty Start Date End Date Marcos Maurice PA-C [address] [facility] [place] [address] PCP - General Physician Straightedge Worker 11/22/23 documented as of this encounter
--- OUTSIDE RECORDS SUMMARY | 2024-04-14 12:59 | External Medical Summary | Summary of Care ---
Author Name Unknown Organization [facility] Address [address] [place] [address] Phone [phone] Care Team Providers Care Aircraft Lay Out Worker Name Role Phone Marcos Maurice PA-C Primary Care Provide r Reason for Visit * Reason Onset Date Comments Home Health 01/17/2024 Encounter Details Date Type Department Care Team (Late st Contact Info) Description 01/17/2024 Telephone Family Practice [place] Dasilva [address] [place] [address] Marcos Maurice PA-C [address] [facility] [place] [address] Home Health Allergies [...] MG Oral Tablet (Crestor)Indications :Cor pulmonale, chronic ([facility]),COPD, group D, by GOLD 2017 classification ([facility]),Hypertensive heart and kidney disease with chronic diastolic congestive heart failure and stage 3a chronic kidney disease ([facility]),Dyslipidemia,E ssential hypertension with goal blood pressure less than 140/90 Take by mouth 1 Tablet in the morning. 90 Tablet 3 09/22/2022 Active Empagliflozin 10 MG Oral Tablet (Jardiance)Indicatio ns:Type 2 diabetes mellitus with stage 3a chronic kidney disease, without long-term current use of insulin ([facility]) Take 1 Tablet by mouth in the morning. 30 Tablet 11 11/22/2022 Active metFORMIN HCl 1000 MG Oral Tablet (Glucophage)Indicati ons:Type 2 diabetes mellitus with stage 3a chronic kidney disease, without long-term current use of insulin ([facility]) Take 1 Tablet by mouth 2 times a day with morning and evening meals. 60 Tablet 5 11/22/2022 Active Azelastine HCl 0.1 % Nasal Solution (Astelin) Administer 1 [place] into nostril in the morning and 1 [place] before bedtime. 30 mL 12 01/12/2023 Active Furosemide 80 MG Oral Tablet (Lasix)Indications:G eneralized osteoarthritis,Chron ic diastolic heart failure ([facility]) Take 1 Tablet by mouth in [...] ns:COPD, group D, by GOLD 2017 classification ([facility]) Inhale 1 Vial via nebulizer every [...] - TRES o Class D - Inhaled Dymphmddpasyrp-RCVB-NYFQ Combination Inhaler (Trellegy) o PD-4 Inhibitor (Daliresp) [...] oximeter to monitor SpO2, advised to contact [facility] if <90% and titrate as necessary, Tobacco use disorder 04/21/2021 Last Assessment & Plan: Referral to [employer] for assistance in getting nicoderm patches covered [...] Last Assessment & Plan: Currently followed by assurance auditor--not on any antihistamines currently, has follow [...] - TRES o Class D - Inhaled Ensqgzhjyfadqd-LYKH-UYXD Combination Inhaler (Trellegy) o PD-4 Inhibitor (Daliresp) Self-Management plan o Prednisone 40mg daily for 5 days Rx o High frequency nebulizer treatments every 4-6 hours around the clock Exacerbation plan o Prednisone rescue kit Rescue kit given today. Educated on use. Must call [facility] when initiated so further assessment can be made documented as of this encounter (statuses as of 01/18/2024) Immunizations Name Administration Dates Next Due COVID-19 mRNA, LNP-s, No Pre serve, 2-Dose Series (Moderna) 01/28/2021 Pneumococcal Conjugate Vacci ne, 20-valent ([id number]) 05/10/2022 Pneumococcal Polysaccharide PPV23 (Pneumovax) 11/17/2013 Seasonal [...] encounter Miscellaneous Notes * Telephone Encounter - Negar Vaz LPN - 01/18/2024 3:56 PM EST Order printed, faxed today, med sent to pharmacy * Telephone Encounter - Cazares, Piper Adore, DO - 01/18/2024 3:37 PM EST sent * Telephone Encounter - Edith Ramírez LPN - 01/17/2024 2:02 PM EST HH Concerns Annette RN, Calling from: [facility] Report/Concerns of: nicotine patches to quit smoking Symptoms: none Vitals: T 97.6 P 96 RR 18 BP 118/60 SP O2 96 Lung sounds 02 @ 4 lpm diminished. Weight n/a Blood sugar 197 Narrative: Annette calling from [facility]. Patient would like to quit smoking. Patches are too expensiveover the counter. Asking if script can be sent so it is covered by insurance. Call back Annette with any advice or orders at Please fax new orders to [phone] documented in this encounter Plan of Treatment Upcoming Encounters Date Type Department Care Team (Late st Contact Info) Description 02/08/2024 8:00 AM EDT Office Visit [facility]mology[facility] [address] [place] [address] Andrea Mcclendon DO [address] [address] Nurse Pratibha Ophthalmology [address] [place] [address] [address] 02/13/2024 12:20 PM EDT [facility] [address] [place] [phone] Letty Villegas CRNP [address] [address] [address] 02/27/2024 8:00 AM EDT Office Visit OphthalmologyRichardn [address] [place] [place] [address] Andrea Mcclendon, [address] [place] [address] 03/05/2024 8:15 AM EDT Office Visit Ophthalmology, [place] Ros[address] [place] [address] Andrea Mcclendon, [address] [place] [address] 03/10/2024 8:30 PM EDT PulmDiagnostic Sleep Lab, [facility] [address] [facility] [place] [address] Gl, Sleep Med Night Sleep [address] [facility] [address] 03/26/2024 8:00 AM EDT Office Visit Ophthalmology, [place] [address] [place] [address] Andrea Mcclendon, [address] [place] [address] 04/02/2024 9:15 AM EDT Office Visit [place] [address] Andrea Mcclendon, 21 [facility] [place] [address] 04/25/2024 2:15 PM EDT Office Visit [place] [address] [place] [address] Andrea Mcclendon, [address] [facility] [place] [address] 06/18/2024 7:40 AM EDT Office Visit [facility] [address], [place] [address] [facility] [place], [place] [address] Piper Cazares, [address] [facility] [place] [address] 07/14/2024 1:00 PM EDT PulmDiagnostic Pulmonary Function Lab, [facility] [address] [place] [address] Gl, Pulm Function Room 1 [address] [place] [address] 07/14/2024 2:00 PM EDT PulmDiagnostic Pulmonary Function Lab, [facility] [address] [facility] [place] [address] Gl, Pulm Function Room 2 [address] [place] [address] 07/23/2024 3:20 PM EDT Office Visit Pulmonary Medicine [facility] [address] [place] [address] [phone] Chance Zimmerman MD [address] [place] [address] [address] Health Maintenance Due Date Last Done Comments Alpha-1 Antitrypsin 1976 Diabetic Foot Exam 1976 Cologuard 2003 Sigmoidoscopy 2003 Zoster Vaccines (1 of 2) 2008 Fecal Occult Blood Test 11/17/2014 11/17/2013 Mammogram 11/27/2018 11/27/2017, 1204/2016, 12/05/2013 Colonoscopy 09/20/2020 09/20/2010 Colorectal Cancer Screening 09/20/2020 *ADVANCE DIRECTIVE NOT ON FILE 04/29/2022 Albumin/Creatinine Ratio 02/03/2023 02/03/2022, 06/19 Depression Screening 02/20/2023 02/20/2022 COVID-19 Vaccine ( season) 2023 01/28/2021 DXA Scan 2023 DTaP,Tdap,and Td Vaccines (2 - Td or Tdap) 11/17/2023 11/17/2013 HbA1c 06/19/2024 12/20/2023, 08/20, 05/22/2023, Additional history exists GFR 06/22/2024 12/23/2023, 01/2024, 12/21/2023, Additional history exists DISCUSS TOBACCO CESSATION (REFER TO SMARTSET #3291) 10/15/2024 10/15/2023, 05/31/2023, 01/12/2023, Additional history exists Diabetic Eye Exam 12/10/2024 12/10/2023, , 12/10/2023, Additional history exists CKD PHOS USE SMARTSET 16070 12/19/202411/21, 09/12/2023, 05/21/2023, Additional history exists CKD HGB USE SMARTSET 02695 12/23/202412/23, 12/22/2023, 12/21/2023, Additional history exists O2 ASSESSMENT COMPLETED IN PAST YEAR FOR COPD 01/16/2025 01/16/2024 Lipid Panel 04/19/2027 04/19/2022, 12/21, 01/21/2021, Additional history exists Cervical Cancer Screening Discontinued Pap Smear Discontinued 10/10/2016, 10/21, 11/17/2013, Additional history exists Pneumococcal Vaccine: 65+ Years Completed 05/10/2022, 11/17/2013 LUNG CANCER SCREENING - USE SMARTSET 68998 Completed 09/09/2023, 05/22/2023, 12/15/2022, Additional history exists [...] the patient have Health Care Power of Weigh Tank Operator? No Bag Valve Device? Yes Intubation? [...] First Alternate Health Care Agent Care Teams Aircraft Lay Out Worker Relationship Specialty Start Date End Date Marcos Maurice PA-C [address] [facility] [place] [address] PCP - General Physician Electroplating Technician 11/22/23 documented as of this encounter
--- OUTSIDE RECORDS SUMMARY | 2024-04-14 12:59 | External Medical Summary | Summary of Care ---
Author Name Unknown Organization [facility] Address [address] [facility] [place] [address] Phone [phone] Care Team Providers Care Stripping Machine Operator Name Role Phone Marcos Maurice PA-C Primary Care Provide r Reason for Visit * Reason Onset Date Comments Test Results 01/14/2024 Encounter Details Date Type Department Care Team (Late st Contact Info) Description 01/14/2024 Telephone Pulmonary Medicine Pratibha Anguiano [address] [place] [phone] Marek Berger PA-C [address] [place] [address] Test Results Allergies [...] MG Oral Tablet (Crestor)Indications: Cor pulmonale, chronic ([facility]),COPD, group D, by GOLD 2017 classification ([facility]),Hypertensive heart and kidney disease with chronic diastolic congestive heart failure and stage 3a chronic kidney disease ([facility]),Dyslipidemia,Es sential hypertension with goal blood pressure less than 140/90 Take by mouth 1 Tablet in the morning. 90 Tablet 3 09/22/2022 Active Empagliflozin 10 MG Oral Tablet (Jardiance)Indication s:Type 2 diabetes mellitus with stage 3a chronic kidney disease, without long-term current use of insulin ([facility]) Take 1 Tablet by mouth in the morning. 30 Tablet 11 11/22/2022 Active metFORMIN HCl 1000 MG Oral Tablet (Glucophage)Indicatio ns:Type 2 diabetes mellitus with stage 3a chronic kidney disease, without long-term current use of insulin ([facility]) Take 1 Tablet by mouth 2 times a day with morning and evening meals. 60 Tablet 5 11/22/2022 Active Azelastine HCl 0.1 % Nasal Solution (Astelin) Administer 1 [place] into nostril in the morning and 1 [place] before bedtime. 30 mL 12 01/12/2023 Active Furosemide 80 MG Oral Tablet (Lasix)Indications:Ge neralized osteoarthritis,Chroni c diastolic heart failure ([facility]) Take 1 Tablet by mouth in [...] s:COPD, group D, by GOLD 2017 classification ([facility]) Inhale 1 Vial via nebulizer every 4 hours as needed for Wheezing or Shortness of Breath. 180 mL 11 08/02/2023 Active Cetirizine HCl 10 MG Oral CapsuleIndications:Vi ral URI with cough,Acute exacerbation of chronic obstructive pulmonary disease (COPD) ([facility]) Take 1 Capsule by mouth at [...] Base) MCG/ACT Inhalation Aerosol SolutionIndications:C OPD, severe ([facility]) Take 2 puffs every four hours [...] - TRES o Class D - Inhaled Icnudoppnzdrup-LCBB-ARHG Combination Inhaler (Trellegy) o PD-4 Inhibitor (Daliresp) [...] to monitor SpO2, advised to contact [facility] if <90% and titrate as necessary, Tobacco use disorder 04/21/2021 Last Assessment & Plan: Referral to [employer] for assistance in getting nicoderm patches [...] Last Assessment & Plan: Currently followed by lead architect--not on any antihistamines currently, has follow up [...] - TRES o Class D - Inhaled Gsvgjhauisyimu-DWTO-WLSI Combination Inhaler (Trellegy) o PD-4 Inhibitor (Daliresp) Self-Management plan o Prednisone 40mg daily for 5 days Rx o High frequency nebulizer treatments every 4-6 hours around the clock Exacerbation plan o Prednisone rescue kit Rescue kit given today. Educated on use. Must call [facility] when initiated so further assessment can be made documented as of this encounter (statuses as of 01/18/2024) Immunizations Name Administration Dates Next Due COVID-19 mRNA, LNP-s, No Pre serve, 2-Dose Series (Moderna) 01/28/2021 Pneumococcal Conjugate Vacci ne, 20-valent ([id number]) 05/10/2022 Pneumococcal Polysaccharide PPV23 (Pneumovax) 11/17/2013 Seasonal [...] 02/08/2024 8:00 AM EDT Office Visit Ophthalmology, [place] [address] [address] [address] Andrea Mcclendon, 21 [facility] [place] [address] Nurse Pratibha Ophthalmology 21 [facility] [place] [address] 02/13/2024 12:20 PM EDT Office Visit [facility], [place] [address] [facility] [place] [phone] Letty Villegas CRNP 21 [facility] [place] [address] 02/27/2024 8:00 AM EDT Office Visit Ophthalmology [place] [address] [place] [address] Andrea Mcclendon, 21 [facility] [place] [address] 03/05/2024 8:15 AM EDT Office Visit Ophthalmology [place] [address] [address] Andrea Mcclendon DO 21 [facility] [address] 03/10/2024 8:30 PM EDT PulmDiagnostic Sleep Lab, [facility] [address] [facility] [place] [address] [facility], Sleep Med Night Sleep 400 [facility] [place] [address] 03/26/2024 8:00 AM EDT Office Visit Ophthalmology, [place] [address] [place] [address] Andrea Mcclendon, DO [address] [place] [address] 04/02/2024 9:15 AM EDT Office Visit Ophthalmology, [place] [address] [address] [address] Andrea Mcclendon, DO [address] [place] [address] 04/25/2024 2:15 PM EDT Office Visit Ophthalmology, [place] [address] [address] Andrea Mcclendon, DO [address] [place] [address] 06/18/2024 7:40 AM EDT Office Visit [facility] [address], [place]se[place] [address] [facility] [place] [address] Piper Cazares DO [address] [facility] [place] [address] 07/14/2024 1:00 PM EDT PulmDiagnostic Pulmonary Function Lab, [facility] [address] [facility] [address] [facility], Pulm Function Room [address] [facility] [place] [address] 07/14/2024 2:00 PM EDT PulmDiagnostic Pulmonary Function Lab, [facility] [address] [place] [place] [address] [facility], Pulm Function Room [address] [facility] [place] [address] 07/23/2024 3:20 PM EDT Office Visit Pulmonary Medicine Pratib[place] Anguiano [address] [place] [address] [phone] Chance Zimmerman MD [address] [address] [address] Health Maintenance Due Date Last Done Comments [...] exists DISCUSS TOBACCO CESSATION (REFER TO SMARTSET #6197) 10/15/2024 10/15/2023, 05/31/2023, 01/12/2023, Additional history exists Diabetic Eye Exam 12/10/2024 12/10/2023, , 12/10/2023, Additional history exists CKD PHOS USE SMARTSET 86412 12/19/202411/21, 09/12/2023, 05/21/2023, Additional history exists CKD HGB USE SMARTSET 35748 12/23/202412/23, 12/22/2023, 12/21/2023, Additional history exists O2 ASSESSMENT COMPLETED IN PAST YEAR FOR COPD 01/16/2025 01/16/2024 Lipid Panel 04/19/2027 04/19/2022, 12/21, 01/21/2021, Additional history exists Cervical Cancer Screening Discontinued Pap Smear Discontinued 10/10/2016, 10/21, 11/17/2013, Additional history exists Pneumococcal Vaccine: 65+ Years Completed 05/10/2022, 11/17/2013 LUNG CANCER SCREENING - USE SMARTSET 35057 Completed 09/09/2023, 05/22/2023, 12/15/2022, Additional history exists [...] the patient have Health Care Power of Electrician Supervisor Substation? No Bag Valve Device? Yes Intubation? No [...] Agents on File Name Relationship Healthcare Agent [facility] Healthhi p Communication Martinez GRIGSBY Adult Child First Alternate Health Care Agent Peterlucrecia Valetz Adult Child First Alternate Health Care Agent Jazmine Corona Adult Child First Alternate Health Care Agent Care Teams Stripping Machine Operator Relationship Specialty Start Date End Date Marcos Maurice PA-C [address] [facility] [place] [phone] PCP - General Physician Risk Mgr 11/22/23 documented as of this encounter
--- OUTSIDE RECORDS SUMMARY | 2024-04-14 12:59 | External Medical Summary | Summary of Care ---
Author Name Unknown Organization [facility] Address [address] [place] [address] Phone [phone] Care Team Providers Care Product Manager E Commerce Name Role Phone Marcos Maurice PA-C Primary Care Provide r Encounter Details Date Type Department Care Team (Late st Contact Info) Description 01/15/2024 Orders Only Family Practice [place], [place] [address] [place] [address] Piper Cazares, [address] [facility] [address] Allergies Active Allergy Reactions Criticality Noted Date Comments Cortisone Muscle pain Medium 04/09/2017 At site of shot Bee Venom Anaphylaxis High 06/25/2021 Hydrocortisone High 12/25/2021 Other reaction(s): PAIN,UNABLE TO MOVE documented as of this encounter (statuses as of 01/15/2024) Medications Medication Sig Dispensed Refills Start Date [...] 0.1 % Nasal Solution (Astelin) Administer 1 [place] into nostril in the morning and 1 [place] before bedtime. 30 mL 12 01/12/2023 Active [...] as of this encounter (statuses as of 01/15/2024) Active Problems Problem Noted Date Diagnosed Date [...] - TRES o Class D - Inhaled Ojzpgpdtkngqav-MKAJ-YXWK Combination Inhaler (Trellegy) o PD-4 Inhibitor (Daliresp) [...] 04/21/2021 Last Assessment & Plan: Referral to 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 followed by weaver apprentice--not on any antihistamines currently, has follow up [...] as of this encounter (statuses as of 01/15/2024) Resolved Problems Problem Noted Date Diagnosed Date [...] failure and stage 3a chronic kidney disease 04/14/2021/02/2024 Last Assessment & Plan: Current Status: "Stable" [...] - TRES o Class D - Inhaled Bgfssqayadeqif-NKDP-WDUB Combination Inhaler (Trellegy) o PD-4 Inhibitor (Daliresp) Self-Management plan o Prednisone 40mg daily for 5 days Rx o High frequency nebulizer treatments every 4-6 hours around the clock Exacerbation plan o Prednisone rescue kit Rescue kit given today. Educated on use. Must call [facility] when initiated so further assessment can be made documented as of this encounter (statuses as of 01/15/2024) Immunizations Name Administration Dates Next Due COVID-19 mRNA, LNP-s, No Pre serve, 2-Dose Series (Moderna) 01/28/2021 Pneumococcal Conjugate Vacci ne, 20-valent ([id number]) 05/10/2022 Pneumococcal Polysaccharide PPV23 (Pneumovax) 11/17/2013 Seasonal [...] Care Team (Late st Contact Info) Description 01/15/2024 2:00 PM EST Office Visit Sleep Disorders, [facility] [address] [place] [address] Germaine Barrientos MD [address] [facility] [place] [address] 01/16/2024 12:20 PM EST [facility] [place] Dasilva [address] [place] [address] Piper Cazares, DO [address] [place] [address] 06/18/2024 7:40 AM EDT Office Visit [facility] [address] [place] [address] Piper Cazares, [address] [place] [address] 07/14/2024 1:00 PM EDT PulmDiagnostic Pulmonary Function Lab, [facility] [address] [place] [address] Gl, Pulm Function Room 1 400 [facility] [place] [address] 07/14/2024 2:00 PM EDT PulmDiagnostic Pulmonary Function Lab, [facility] [address] [facility], [place] [address] [facility], Pul Function Room 2 400 [place] [address] 07/23/2024 3:20 PM EDT Office Visit Pulmonary Medicine [place] [address] [address] [phone] Chance Zimmerman MD [address] [place] [address] [address] Health Maintenance Due Date Last Done Comments [...] exists DISCUSS TOBACCO CESSATION (REFER TO SMARTSET #5025) 10/15/2024 10/15/2023, 05/31/2023, 01/12/2023, Additional history exists Diabetic Eye Exam 12/10/2024 12/10/2023, , 12/10/2023, Additional history exists CKD PHOS USE SMARTSET 34263 12/19/202411/21, 09/12/2023, 05/21/2023, Additional history exists CKD HGB USE SMARTSET 12965 12/23/202412/23, 12/22/2023, 12/21/2023, Additional history exists O2 ASSESSMENT COMPLETED IN PAST YEAR FOR COPD 01/07/2025 01/07/2024 Lipid Panel 04/19/2027 04/19/2022, 12/21, 01/21/2021, Additional history exists Cervical Cancer Screening Discontinued Pap Smear Discontinued 10/10/2016, 10/21, 11/17/2013, Additional history exists Pneumococcal Vaccine: 65+ Years Completed 05/10/2022, 11/17/2013 LUNG CANCER SCREENING - USE SMARTSET 50230 Completed 09/09/2023, 05/22/2023, 12/15/2022, Additional history exists [...] Procedure Name Priority Date/Time Associated Diagnosis Comments XR CHEST 2 VIEWS Routine 01/12/2024 documented in this encounter Results * XR CHEST 2 VIEWS (01/12/2024) Anatomical Region Laterality Modality Chest Other 01/12/2024 History Per Patient RADIOLOGY (RAD GENER AL) documented in this encounter Advance Directives Latest [...] patient have Health Care Power of Medical Records Assistant? No Bag Valve Device? Yes Intubation? [...] First Alternate Health Care Agent Care Teams Product Manager E Commerce Relationship Specialty Start Date End Date Marcos Maurice PA-C [address] [facility] [place] [address] PCP - General Physician Instructional Technology Teacher 11/22/23 documented as of this encounter
--- OUTSIDE RECORDS SUMMARY | 2024-04-14 12:59 | External Medical Summary | Summary of Care ---
Author Name Unknown Organization [facility] Address [address] [place] [address] Phone [phone] Care Team Providers Care Fuel Technician Name Role Phone Marcos Maurice PA-C Primary Care Provide r Reason for Visit * Reason Comments Acute 2-3 days of runny no se and shortness of breath Encounter Details Date Type Department Care Team (Late st Contact Info) Description 01/16/2024 12:20 PM EST Office Visit [facility], [place] [address] [facility] [place] [address] Piper Cazares DO [address] [facility] [address] COPD exacerbation (HCC)* Allergies Active Allergy Reactions Criticality Noted Date Comments Cortisone Muscle pain Medium 04/09/2017 At site of shot Bee Venom Anaphylaxis High 06/25/2021 Hydrocortisone High 12/25/2021 Other reaction(s): PAIN,UNABLE TO MOVE documented as of this encounter (statuses as of 01/17/2024) Medications Medication Sig Dispensed Refills Start Date [...] MG Oral Tablet (Crestor)Indications :Cor pulmonale, chronic ([facility]),COPD, group D, by GOLD 2017 classification ([facility]),Hypertensive heart and kidney disease with chronic diastolic congestive heart failure and stage 3a chronic kidney disease ([facility]),Dyslipidemia,E ssential hypertension with goal blood pressure less than 140/90 Take by mouth 1 Tablet in the morning. 90 Tablet 3 09/22/2022 Active Empagliflozin 10 MG Oral Tablet (Jardiance)Indicatio ns:Type 2 diabetes mellitus with stage 3a chronic kidney disease, without long-term current use of insulin ([facility]) Take 1 Tablet by mouth in the morning. 30 Tablet 11 11/22/2022 Active metFORMIN HCl 1000 MG Oral Tablet (Glucophage)Indicati ons:Type 2 diabetes mellitus with stage 3a chronic kidney disease, without long-term current use of insulin ([facility]) Take 1 Tablet by mouth 2 times a day with morning and evening meals. 60 Tablet 5 11/22/2022 Active Azelastine HCl 0.1 % Nasal Solution (Astelin) Administer 1 Fife into nostril in the morning and 1 Fife before bedtime. 30 mL 12 01/12/2023 Active Furosemide 80 MG Oral Tablet (Lasix)Indications:G eneralized osteoarthritis,Chron ic diastolic heart failure ([facility]) Take 1 Tablet by mouth in the [...] ns:COPD, group D, by GOLD 2017 classification ([facility]) Inhale 1 Vial via nebulizer every 4 hours as needed for Wheezing or Shortness of Breath. 180 mL 11 08/02/2023 Active Cetirizine HCl 10 MG Oral CapsuleIndications:[place] URI with cough,Acute exacerbation of chronic obstructive pulmonary disease (COPD) ([facility]) Take 1 Capsule by mouth at bedtime. 90 Capsule 3 08/21/2023 Active Melatonin 3 MG Oral Tablet Take 1 Tablet by mouth at bedtime. 30 Tablet 1 09/17/2023 Active buPROPion HCl ER (XL) 300 MG Oral Tablet Extended Release 24 Hour (Wellbutrin XL)Indications:MDD (major depressive disorder), recurrent episode, mild ([facility]) Take 1 Tablet by mouth in the morning. 90 Tablet 1 09/21/2023 Active Albuterol Sulfate HFA 108 (90 Base) MCG/ACT Inhalation Aerosol SolutionIndications: COPD, severe ([facility]) Take 2 puffs every four hours as [...] 20 MG Oral Tablet (Deltasone)Indicatio ns:COPD exacerbation ([facility]) Take 3 tabs for 3 days, 2 tabs for 3 days, 1 tab for 3 days, 1/2 tab for 3 days 20 Tablet 0 01/16/2024 Active levoFLOXacin 500 MG Oral Tablet Take 1 Tablet by mouth in the morning for 7 days. until gone.. 7 Tablet 0 01/16/2024 01/23/2024 Active Hospital, Clinic, or Other Facility Administered Medication Ordered Dose Route Frequency Start Date End Date Status Albuterol Sulfate (Proventil) (5 MG/ML) 0.5% *conc* inhalation solution 2.5 mgIndications:COPD, severe (HCC) 2.5 mg NEBULIZER PRN 10/15/2023 10/14/2024 Active documented as of this encounter (statuses as of 01/17/2024) Active Problems Problem Noted Date Diagnosed Date [...] - TRES o Class D - Inhaled Rsuzphnyyjzaln-KWHU-ENZR Combination Inhaler (Trellegy) o PD-4 Inhibitor (Daliresp) [...] 04/21/2021 Last Assessment & Plan: Referral to [facility] for assistance in getting nicoderm patches [...] Last Assessment & Plan: Currently followed by global professional--not on any antihistamines currently, has follow [...] as of this encounter (statuses as of 01/17/2024) Resolved Problems Problem Noted Date Diagnosed Date [...] - TRES o Class D - Inhaled Mqgssiuetuzzkm-HAVW-ZTXI Combination Inhaler (Trellegy) o PD-4 Inhibitor (Daliresp) Self-Management plan o Prednisone 40mg daily for 5 days Rx o High frequency nebulizer treatments every 4-6 hours around the clock Exacerbation plan o Prednisone rescue kit Rescue kit given today. Educated on use. Must call [facility] when initiated so further assessment can be made documented as of this encounter (statuses as of 01/17/2024) Immunizations Name Administration Dates Next Due COVID-19 mRNA, LNP-s, No Pre serve, 2-Dose Series (Moderna) 01/28/2021 Pneumococcal Conjugate Vacci ne, 20-valent (Kequafw20) 05/10/2022 Pneumococcal Polysaccharide PPV23 (Pneumovax) 11/17/2013 Seasonal [...] Tobacco: Never Tobacco Cessation:Ready to Q uit: No; Counseling Given: Yes Alcohol Use Standard Drinks/Week Comments No 0 [...] Sign Reading Time Taken Comments Blood Pressure 122/60 01/16/2024 12:27 PM EST Pulse 98 01/16/2024 12:27 PM EST Temperature 36.6 C (97.9 F) 01/16/2024 1 2:27 PM EST Respiratory Rate 22 01/16/2024 12:2 7 PM EST Oxygen Saturation 91% 01/16/2024 12: 27 PM EST 4L Inhaled Oxygen Concentration - - Weight 90.2 kg (198 lb 12.8 oz) 024 12:27 PM EST Height 167.6 cm (5' 6") 01/16/2024 12:2 7 PM EST Body Mass Index 32.09 01/16/2024 12:27 PM EST documented in this [...] shopping? (15 years old or older) Yes 01/31/20 24 Cognitive Status Response Date of Assessm ent Because of a physical, menta l, or emotional condition, do you have serious difficulty concentrating, remembering, or making decisions? (5 years old or older) No 12/19/2023 documented as of this encounter Progress Notes * Debora Piper Avitia, DO - 01/17/2024 1:17 PM EST Subjective Edna Kebede is a 63 year old female. Chief Complaint Patient presents with Acute 2-3 days of runny nose and shortness of breath HPI: 63-year-old female here today for acute visit Chart reviewed Patient started to have increasing respiratory symptoms about 2-3 days ago She is noticed increased wheezing and chest tightness, increased shortness of breath and runny nose Increased cough with mucus production Using further oxygen around the clock She has had some chills but no fever, denies any sick contacts He has pretty significant respiratory illnesses, she is using her regular inhalers and nebulizers She has currently not smoking PMH: Patient Active Problem List Diagnosis Code DJD (degenerative joint disease), cervical M47.812 Generalized osteoarthritis M15.9 Vitamin D deficiency E55.9 MARCIE (generalized anxiety disorder) F41.1 Gastroesophageal reflux disease without esophagitis K21.9 Recurrent major depressive disorder, in partial remission ([facility]) F33.41 Essential hypertension with goal blood pressure less than 140/90 I10 Migraine without aura and without status migrainosus, not intractable G43.009 Chronic seasonal allergic rhinitis due to pollen J30.1 COPD exacerbation ([facility]) J44.1 Dyslipidemia E78.5 Lumbar degenerative disc disease M51.36 Chronic diastolic heart failure ([facility]) I50.32 Chronic hypoxemic respiratory failure ([facility]) J96.11 Tobacco use disorder F17.200 Pulmonary hypertension ([facility]) I27.20 Insomnia G47.00 Personal history of DVT (deep vein thrombosis) Z86.718 Personal history of pulmonary embolism Z86.711 Cor pulmonale, chronic ([facility]) I27.81 Acute on chronic respiratory failure with hypoxia and hypercapnia ([facility]) J96.21, J96.22 Type 2 diabetes mellitus with stage 3a chronic kidney disease, without long-term current use of insulin ([facility]) E11.22, N18.31 Centrilobular emphysema ([facility]) J43.2 Bilateral lower extremity edema R60.0 COPD, group D, by GOLD 2017 classification ([facility]) J44.9 Chronic respiratory failure with hypoxia and hypercapnia ([facility]) J96.11, J96.12 Chronic anticoagulation Z79.01 Acute metabolic encephalopathy G93.41 Current Outpatient Medications Medication Sig Dispense Refill [...] 0.1 % Nasal Solution (Astelin) Administer 1 Fife into nostril in the morning and 1 Fife before bedtime. 30 mL 12 Furosemide 80 MG Oral Tablet (Lasix) Take 1 Tablet by mouth in the morning and 1 Tablet before bedtime. 180 Tablet 3 Potassium Chloride 20 MEQ Oral Packet Take 20 mEq by mouth in the morning. 30 Packet 5 Trelegy Ellipta 100-62.5-25 MCG/ACT Aerosol Powder Breath Activated (Dirkrqnpxad-Jtyavauxpzre-Rghcdvwfkw) Inhale 1 Puff by mouth in the morning. 60 Each 6 Vitamin D3 50 MCG (2000 UT) Oral Capsule Take 1 Capsule by mouth in the morning. 90 Capsule 1 Albuterol Sulfate (2.5 MG/3ML) 0.083% Inhalation Nebulization Solution (Proventil) Inhale 1 Vial via nebulizer every 4 hours as needed for Wheezing or Shortness of Breath. 180 mL 11 Cetirizine HCl 10 MG Oral Capsule Take 1 Capsule by mouth at bedtime. 90 Capsule 3 Melatonin 3 MG Oral Tablet Take 1 Tablet by mouth at bedtime. 30 Tablet 1 buPROPion HCl ER (XL) 300 MG Oral Tablet Extended Release 24 Hour (Wellbutrin XL) Take 1 Tablet by mouth in the morning. 90 Tablet 1 Albuterol Sulfate HFA 108 (90 Base) MCG/ACT Inhalation Aerosol Solution Take 2 puffs every four hours as need for shortness of breath or wheezing 18 g 3 Gabapentin 600 MG Oral Tablet (Neurontin) Take 1 Tablet by mouth in the morning and 1 Tablet beforebedtime. 180 Tablet 3 Eliquis 5 MG Oral Tablet take 1 [...] mouth in the morning. 90 Tablet 3 predniSONE 20 MG Oral Tablet (Deltasone) Take 3 tabs for 3 days, 2 tabs for 3 days, 1 tab for 3 days, 1/2 tab for 3 days 20 Tablet 0 levoFLOXacin 500 MG Oral Tablet Take 1 Tablet by mouth in the morning for 7 days. until gone.. 7 Tablet 0 Current Facility-Administered Medications Medication Dose Route Frequency [...] 11/17/2013 B12 deficiency 11/17/2013 Benzodiazepine abuse, episodic (HCC) 05/21/2018 Chronic diastolic heart failure (HCC) 02/28/2021 Chronic hypoxemic respiratory failure (HCC) 04/21/2021 Chronic sinusitis 07/22/2014 COPD (chronic obstructive pulmonary disease) ([facility]) COPD, group D, by GOLD 2017 classification ([facility]) 03/29/2020 Nearing end-stage Per COPD GOLD Classification COPD, severity to be determined ([facility]) 11/17/2013 Cor pulmonale, chronic ([facility]) 03/08/2022 Depression 11/17/2013 DJD (degenerative joint disease), [...] stage 3a chronic kidney disease ([facility]) 04/14/2021 Hypertensive heart and kidney disease with chronic diastolic congestive heart failure and stage 3a chronic kidney disease ([facility]) 2023-11-22 Adding I13.0, I50.32, N18.31-Hypertensive heart and kidney disease with chronic diastolic congestive heart failure and stage 3a chronic kidney disease ([facility]) Dx to History Hypokalemia 07/26/2022 Insomnia 02/03/2022 Lumbar degenerative disc disease 08/26/2019 Pain down the L4-5 nerve root on the right. Migraine without aura and without status migrainosus, not intractable 01/24/2017 left side. Morbid (severe) obesity due to excess calories ([facility]) 06/16/2022 Other pulmonary embolism without acute cor pulmonale ([facility]) 12/02/2021 02/28/22 Pulmonary note Pt hospitalized from [...] 03/07/2017 Pulmonary arterial hypertension (HCC) Pulmonary embolism ([facility]) RLS (restless legs syndrome) 11/17/2013 Tobacco use disorder 04/21/2021 Vitamin D deficiency 11/17/2013 Past Surgical History: Procedure Laterality Date ABD WALL HERNIA REPAIR, LAP, REDUCIBLE CARPAL TUNNEL SURGERY Bilateral DENTAL SURGERY PROCEDURE NEC 2005 All teeth removed INJECT DX/THER SUBSTANCE INTERLAMINAR LUMBAR/SACRAL W IMAGE GUIDE Right 09/16/2019 INJECTION SPINE LUMBAR OR SACRAL performed by Fawn Vee MD at OR [facility] INJECT DX/THER SUBSTANCE INTERLAMINAR LUMBAR/SACRAL W IMAGE GUIDE N/A 09/17/2020 INJECTION SPINE LUMBAR OR SACRAL performed by Katie Plunkett MD at OR [facility] LIGATE/CUT OVIDUCT(S) LUMBAR / SACRAL EPIDURAL, ADD'L LEVEL Right 10/06/2019 INJECTION TRANSFORAMINAL EPIDURAL LUMBAR OR SACRAL ADDITIONAL performed by Fawn Vee MD at [facility] LUMBAR / SACRAL EPIDURAL, SINGLE LEVEL Right 10/06/2019 INJECTION TRANSFORAMINAL EPIDURAL LUMBAR OR SACRAL performed by Fawn Vee MD at OR [facility] REMOVE GALLBLADDER 2011 REPAIR RUPTURED ROTATOR CUFF, CHRON Bilateral Review of patient's allergies indicates: Allergen Reactions Honey Bee Venom Protein [Bee Venom] Anaphylaxis Hydrocortisone Other reaction(s): PAIN,UNABLE TO MOVE Cortisone Muscle pain At site of shot Family History Problem Relation Age of Onset [...] HSIS Social History Socioeconomic History Marital status: Spouse [...] Last attempt to quit: 11/28/2023 Years since quittin.1 Passive exposure: Past Smokeless tobacco: Never Vaping Use Vaping Use: Never used Substance [...] on file Housing Stability: Not on file Objective BP 122/60 | Pulse 98 | Temp 36.6 C (97.9 F) (Temporal Artery) | Resp 22 | Ht 1.676 m (5' 6") | Wt 90.2 kg (198 lb 12.8 oz) | SpO2 91% Comment: 4L | BMI 32.09 kg/m | BSA 2.05 m Physical Exam Vitals and nursing note reviewed. Constitutional: General: She is not in acute distress. Appearance: Normal appearance. She is well-developed. She is obese. She is not ill-appearing or diaphoretic. HENT: Head: Normocephalic and atraumatic. Right Ear: External ear normal. Left Ear: External ear normal. Nose: Nose normal. Mouth/Throat: Mouth: Mucous membranes are moist. Eyes: General: No scleral icterus. Right eye: No discharge. Left eye: No discharge. Cardiovascular: Rate and Rhythm: Normal rate and regular rhythm. Heart sounds: Normal heart sounds. No murmur heard. Pulmonary: Effort: Pulmonary effort is normal. No respiratory distress. Breath sounds: Wheezing present. No rhonchi or rales. Abdominal: General: There is no distension. Musculoskeletal: General: No deformity. Cervical back: Neck supple. Right lower leg: No edema. Left lower leg: No edema. Skin: General: Skin is warm and dry. Neurological: Mental Status: She is alert and oriented to person, place, and time. Psychiatric: Mood and Affect: Mood normal. Behavior: Behavior normal. Thought Content: Thought content normal. Judgment: Judgment normal. ASSESSMENT/PLAN: COPD exacerbation (HCC) (Primary) - predniSONE 20 MG Oral Tablet (Deltasone); Take 3 tabs for 3 days, 2 tabs for 3 days, 1 tab for 3 days, 1/2 tab for 3 days Other orders - levoFLOXacin 500 MG Oral Tablet; Take 1 Tablet by mouth in the morning for 7 days. until gone.. Will treat for COPD exacerbation Start prednisone and Levaquin Follow-up with pulmonology Continue oxygen and regular COPD medications Recommend she call the office or go to the emergency room with any worsening symptoms Follow Up: Return if symptoms worsen or fail to improve. Piper Cazares DO documented in this encounter Nursing Notes * Negar Vaz LPN - 01/16/2024 12:26 PM EST Chief Complaint Patient presents with Acute 2-3 days of runny nose and shortness of breath documented in this encounter Plan of Treatment Upcoming Encounters Date Type Department Care Team (Late st Contact Info) Description 02/08/2024 8:00 AM EDT [facility] [address] [place] [address] Andrea Mcclendon DO [address] [place] [address] [address] Nurse [facility] [address] [place] [address] 02/13/2024 12:20 PM EDT [facility] [address] [place] [phone] Letty Villegas CRNP [address] [place] [address] 02/27/2024 8:00 AM EDT Office [facility] [address] [place] [address] Andrea Mcclendon DO [address] [place] [address] 03/05/2024 8:15 AM EDT Office Visit Ophthalmology, [place] [address] [place] [address] Andrea Mccelndon, [address] [place] [address] 03/10/2024 8:30 PM EDT PulmDiagnostic Sleep Lab, [facility] [address] [facility] [address] [place] [address] [facility], Sleep Med [facility] [address] [facility] [address] 03/26/2024 8:00 AM EDT Office Visit Ophthalmology, [place] [address] [place] [address] Andrea Mcclendon, [address] [place] [address] 04/02/2024 9:15 AM EDT Office Visit Ophthalmology, [place] [address] [address] [address] Andrea Mcclendon, [address] [place] [address] 04/25/2024 2:15 PM EDT Office Visit Ophthalmology, [place] [address] [place] [address] Andrea Mcclendon, [address] [place] [address] 06/18/2024 7:40 AM EDT Office Visit [facility] [address], [place] [address] [place] [place] [address] Piper Cazares DO [address] [place] [address] 07/14/2024 1:00 PM EDT PulmDiagnostic Pulmonary Function Lab, [facility] [address] [facility] [address] [facility], Pul Function Room 1 [address] [place] [address] 07/14/2024 2:00 PM EDT PulmDiagnostic Pulmonary Function Lab, [facility] [address] [place] [address] [facility] [address] [facility] [place] [address] 07/23/2024 3:20 PM EDT Office Visit [facility]monary [facility] [place] [address] [place] [phone] Chance Zimmerman MD [address] [place] [address] Health Maintenance Due Date Last Done Comments [...] Additional history exists CKD PHOS USE SMARTSET 45483 12/19/202411/21, 09/12/2023, 05/21/2023, Additional history exists CKD HGB USE SMARTSET 75567 12/23/202412/23, 12/22/2023, 12/21/2023, Additional history exists O2 ASSESSMENT COMPLETED IN PAST YEAR FOR COPD 01/16/2025 01/16/2024 Lipid Panel 04/19/2027 04/19/2022, 12/21, 01/21/2021, Additional history exists Cervical Cancer Screening Discontinued Pap Smear Discontinued 10/10/2016, 10/21, 11/17/2013, Additional history exists Pneumococcal Vaccine: 65+ Years Completed 05/10/2022, 11/17/2013 LUNG CANCER SCREENING - USE SMARTSET 69796 Completed 09/09/2023, 05/22/2023, 12/15/2022, Additional history exists [...] (HCC)- Primary Obstructive chronic bronchitis with exacerbation documented in this encounter Advance Directives Latest [...] the patient have Health Care Power of Feeder Operator? No Bag Valve Device? Yes Intubation? [...] First Alternate Health Care Agent Care Teams Fuel Technician Relationship Specialty Start Date End Date Marcos Maurice PA-C [address] [facility] [place] [address] PCP - General Physician Manager Studio 11/22/23 documented as of this encounter
--- OUTSIDE RECORDS SUMMARY | 2024-04-14 12:59 | External Medical Summary | Summary of Care ---
Author Name Unknown Organization [facility] Address [address] [place] [address] Phone [phone] Care Team Providers Care Art Supervisor Name Role Phone Marcos Maurice PA-C Primary Care Provide r Reason for Visit * Reason Onset Date Comments Test Results 01/14/2024 Encounter Details Date Type Department Care Team (Late st Contact Info) Description 01/14/2024 Telephone Pulmonary Medicine Pratibha Anguiano [address] [place] [phone] Marek Berger PA-C [address] [place] [address] Test Results Allergies Active Allergy Reactions Criticality Noted Date Comments Cortisone Muscle pain Medium 04/09/2017 At site of shot Bee Venom Anaphylaxis High 06/25/2021 Hydrocortisone High 12/25/2021 Other reaction(s): PAIN,UNABLE TO MOVE documented as of this encounter (statuses as of 01/14/2024) Medications Medication Sig Dispensed Refills Start Date [...] Tablet (Crestor)Indications: Cor pulmonale, chronic ([facility]),COPD, group D, by GOLD 2017 classification ([facility]),Hypertensive heart and kidney disease with chronic diastolic congestive heart failure and stage 3a chronic kidney disease ([facility]),Dyslipidemia,Es sential hypertension with goal blood pressure less than 140/90 Take by mouth 1 Tablet in the morning. 90 Tablet 3 09/22/2022 Active Empagliflozin 10 MG Oral Tablet (Jardiance)Indication s:Type 2 diabetes mellitus with stage 3a chronic kidney disease, without long-term current use of insulin ([facility]) Take 1 Tablet by mouth in the morning. 30 Tablet 11 11/22/2022 Active metFORMIN HCl 1000 MG Oral Tablet (Glucophage)Indicatio ns:Type 2 diabetes mellitus with stage 3a chronic kidney disease, without long-term current use of insulin ([facility]) Take 1 Tablet by mouth 2 times a day with morning and evening meals. 60 Tablet 5 11/22/2022 Active Azelastine HCl 0.1 % Nasal Solution (Astelin) Administer 1 Drasco into nostril in the morning and 1 Drasco before bedtime. 30 mL 12 01/12/2023 Active Furosemide 80 MG Oral Tablet (Lasix)Indications:Ge neralized osteoarthritis,Chroni c diastolic heart failure ([facility]) Take 1 Tablet by mouth in [...] D, by GOLD 2017 classification ([facility]) Inhale 1 Vial via nebulizer every 4 hours as needed for Wheezing or Shortness of Breath. 180 mL 11 08/02/2023 Active Cetirizine HCl 10 MG Oral CapsuleIndications:Vi ral URI with cough,Acute exacerbation of chronic obstructive pulmonary disease (COPD) ([facility]) Take 1 Capsule by mouth at [...] Base) MCG/ACT Inhalation Aerosol SolutionIndications:C OPD, severe ([facility]) Take 2 puffs every four hours [...] as of this encounter (statuses as of 01/14/2024) Active Problems Problem Noted Date Diagnosed Date [...] - TRES o Class D - Inhaled Mrvhlkbgdkgpuk-SPFV-[id number] Combination Inhaler (Trellegy) o PD-4 Inhibitor (Daliresp) [...] oximeter to monitor SpO2, advised to contact [facility] if <90% and titrate as necessary, Tobacco use disorder 04/21/2021 Last Assessment & Plan: Referral to [employer] for assistance in getting nicoderm patches covered [...] Last Assessment & Plan: 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 Educated on use. Must call [facility] when initiated so further assessment can be made documented as of this encounter (statuses as of 01/14/2024) Immunizations Name Administration Dates Next Due COVID-19 mRNA, LNP-s, No Pre serve, 2-Dose Series (Moderna) 01/28/2021 Pneumococcal Conjugate Vacci ne, 20-valent ([id number]) 05/10/2022 Pneumococcal Polysaccharide PPV23 (Pneumovax) 11/17/2013 Seasonal [...] 2:00 PM EST Office Visit Sleep Disorders, [facility] [address] [place] [address] Germaine Barrientos MD [address] [facility] [place] [address] 01/16/2024 12:20 PM EST Office Visit [facility] [address] [place] [address] Piper Cazares, DO [address] [place] [address] 06/18/2024 7:40 AM EDT Office Visit [facility] [address] [place] [address] [place], [place] [address] Piper Cazares, DO [address] [place], [place] [address] 07/14/2024 1:00 PM EDT [facility], [address] [place] [address] [facility], Pulm Function Room 1 [address] [place] [address] 07/14/2024 2:00 PM EDT [facility], [address] [place] [address] [facility], Pulm Function Room [address] [place] [address] 07/23/2024 3:20 PM EDT [facility] [place] [address] [place] [address] [phone] Chance Zimmerman MD [address] [place] [address] [address] Health Maintenance Due Date Last Done Comments [...] Additional history exists CKD PHOS USE SMARTSET 81006 12/19/202411/21, 09/12/2023, 05/21/2023, Additional history exists CKD HGB USE SMARTSET 89547 12/23/202412/23, 12/22/2023, 12/21/2023, Additional history exists O2 ASSESSMENT COMPLETED IN PAST YEAR FOR COPD 01/07/2025 01/07/2024 Lipid Panel 04/19/2027 04/19/2022, 12/21, 01/21/2021, Additional history exists Cervical Cancer Screening Discontinued Pap Smear Discontinued 10/10/2016, 10/21, 11/17/2013, Additional history exists Pneumococcal Vaccine: 65+ Years Completed 05/10/2022, 11/17/2013 LUNG CANCER SCREENING - USE SMARTSET 40178 Completed 09/09/2023, 05/22/2023, 12/15/2022, Additional history exists [...] the patient have Health Care Power of Digital Coordinator? No Bag Valve Device? Yes Intubation? [...] Agents on File Name Relationship Healthcare Agent [facility] Communication Martinez GRIGSBY Adult Child First Alternate Health Care Agent Peter Grigsby Adult Child First Alternate Health Care Agent Jazmine Corona Adult Child First Alternate Health Care Agent Care Teams Art Supervisor Relationship Specialty Start Date End Date Marcos Maurice PA-C [address] [facility] [place] [address] PCP - General Physician Ad Writer 11/22/23 documented as of this encounter
--- OUTSIDE RECORDS SUMMARY | 2024-04-14 12:59 | External Medical Summary | Summary of Care ---
Author Name Unknown Organization [facility] Address [address] [place] [address] Phone [phone] Care Team Providers Care Welding Pantograph Operator Name Role Phone Marcos Maurice PA-C Primary Care Provide r Reason for Referral * Precert (Within 10 days (routine)) - Pending Review Specialty Diagnoses / Procedures Referred By Frantz herrera Referred To Contact Sleep Disorders Diagnoses DARCY (obstructive sleep apnea) Procedures SLEEP STUDY, W/O CPAP Germaine Barrientos MD [address] [facility] [place] [address] Referral ID Status Reason Start Date Expiration Date V isits Requested Visits Authorized [id number] Pending Review 01/15/2024 999 999 Reason for Visit * Reason Comments NEW PATIENT * Evaluate & Treat - Unlimited Visits (Within 10 days (routine)) - Pending Review Specialty Diagnoses / Procedures Referred By Frantz herrera Referred To Contact Sleep Medicine / Sleep Disorders Diagnoses COPD, severe (HCC) Marek Berger PA-C [address] [facility] [place] [address] Referral ID Status Reason Start Date Expiration Date Visits Requested Visits Authorized [id number] Pending Review Specialty Services Required 01/07/2024 2 2 Encounter Details Date Type Department Care Team (Late st Contact Info) Description 01/15/2024 2:00 PM EST Office Visit Sleep Disorders, [facility] [address] [place] [address] Germaine Barrientos MD [address] [facility] [place] [address] DARCY (obstructive sleep apnea)* Allergies Active Allergy Reactions Criticality Noted Date [...] GASIndications:COPD, group D, by GOLD 2017 classification ([facility]),Chronic hypoxemic respiratory failure ([facility]) 2 LPM at bedtime & at rest & 3 LPM with all exertion via n/c DX J 44.9 1 Each 0 07/31/2022 Active Fluticasone Propionate 50 MCG/ACT Nasal Suspension (Flonase) Administer into each nostril 2 Sprays in the morning. 15.8 mL 2 09/22/2022 Active Rosuvastatin Calcium 20 MG Oral Tablet (Crestor)Indications: Cor pulmonale, chronic ([facility]),COPD, group D, by GOLD 2017 classification ([facility]),Hypertensive heart and kidney disease with chronic diastolic congestive heart failure and stage 3a chronic kidney disease ([facility]),Dyslipidemia,Es sential hypertension with goal blood [...] 0.1 % Nasal Solution (Astelin) Administer 1 Comstock into nostril in the morning and 1 Comstock before bedtime. 30 mL 12 01/12/2023 Active Furosemide 80 MG Oral Tablet (Lasix)Indications:Ge neralized osteoarthritis,Chroni c diastolic heart failure (HCC) Take 1 Tablet [...] Vitamin D3 50 MCG (2000 UT) Oral CapsuleIndications:Vi tamin D deficiency Take 1 Capsule by mouth in the morning. 90 Capsule 1 06/21/2023 Active Albuterol Sulfate (2.5 MG/3ML) 0.083% Inhalation Nebulization Solution (Proventil)Indication s:COPD, group D, by GOLD 2017 classification ([facility]) Inhale 1 Vial via nebulizer every 4 hours as needed for Wheezing or Shortness of Breath. 180 mL 11 08/02/2023 Active Cetirizine HCl 10 MG Oral CapsuleIndications:Vi ral URI with cough,Acute exacerbation of chronic obstructive pulmonary disease (COPD) ([facility]) Take 1 Capsule by mouth [...] - TRES o Class D - Inhaled Jinsfmwweybzae-DDRA-LYYF Combination Inhaler (Trellegy) o PD-4 Inhibitor (Daliresp) [...] oximeter to monitor SpO2, advised to contact [facility] if <90% and titrate as necessary, Tobacco use disorder 04/21/2021 Last Assessment & Plan: Referral to [email or web address] for assistance in getting nicoderm patches covered [...] Assessment & Plan: Currently followed by business consult--not on any antihistamines currently, has follow up [...] - TRES o Class D - Inhaled Umlclyuarnswon-JMTT-FPLE Combination Inhaler (Ernestollegy) o PD-4 Inhibitor (Daliresp) Self-Management plan o Prednisone 40mg daily for 5 days Rx o High frequency nebulizer treatments every 4-6 hours around the clock Exacerbation plan o Prednisone rescue kit Rescue kit given today. Educated on use. Must call [facility] when initiated so further assessment can be made documented as of this encounter (statuses as of 01/15/2024) Immunizations Name Administration Dates Next Due COVID-19 mRNA, LNP-s, No Pre serve, 2-Dose Series (Moderna) 01/28/2021 Pneumococcal Conjugate Vacci ne, 20-valent ([id number]) 05/10/2022 Pneumococcal Polysaccharide PPV23 (Pneumovax) 11/17/2013 Seasonal [...] Sign Reading Time Taken Comments Blood Pressure 117/55 01/15/2024 2:03 PM EST Pulse 84 01/15/2024 2:03 PM EST Temperature - - Respiratory Rate - - Oxygen Saturation - - Inhaled Oxygen Concentration - - Weight 89.4 kg (197 lb) 01/15/2024 2:03 PM EST Height 167.6 cm (5' 6") 01/15/2024 2:03 PM EST Body Mass Index 31.8 01/15/2024 2:03 PM EST documented in this encounter Functional [...] as of this encounter Progress Notes * Germaine Barrientos MD - 01/15/2024 2:23 PM EST Name: Edna Kebede Sex: female : 1960 Nursing Notes: Jelena Garvey LPN 01/15/24 1414 Sign at exiting of workspace Edna Kebede [id number] Body mass index is 31.8 kg/m. Neck Circumference: 16.75 inches. 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 EPWORTH SLEEPINESS SCALE: 0 = would never doze 1 = slight chance of dozing 2 = moderate chance of dozing 3 = high chance of dozing Sitting and reading - 1 Watching TV - 1 Sitting, inactive in a public place - 0 Passenger in a car - 0 Lying down to rest - 0 Sitting and talking - 0 Sitting quietly after lunch - 0 In a car, stopped in traffic - 0 Total - 01/12 FOSQ-10 Q1. Do you have difficulty concentrating on things you do because you are sleepy or tired?No Q2. Do you generally have difficulty remembering things because you are sleepy or tired?No Q3. Do you have difficulty operating a motor vehicle for short distances (less than 100 miles) because you become sleepy? No Q4. Do you have difficulty operating a motor vehicle for long distances (greater than 100 miles) because you become sleepy?No Q5. Do you have difficulty visiting your family or friends in their home because you become sleepy or tired?No Q6. Has your relationship with family, friends or work colleagues been affected because you are sleepy or tired?No Q7. Do you have difficulty watching a movie or video because you become sleepy or tired?No Q8. Do you have difficulty being as active as you want to be in the evening because you are sleepy or tired?No Q9. Do you have difficulty being as active as you want to be in the morning because you are sleepy or tired?No Q10. Has your mood been affected because you are sleepy or tired? No REASON FOR CONSULT: DARCY HPI: Patient is a 63 yo lady with history of COPD on oxygen 4 LPM, depression who came with historyof nocturnal hypoxia. Patient does keep a regular sleep/wake schedule. Patient goes to bed by 1-2 AM. Patient usually wakes up by 9 AM. On weekends, patient does not keep the same sleep schedule. Patient estimates a total sleep time (in a 24 hour period) of 5-6 hours. Patient does not work. Patient Denies problem falling asleep in 15 minutes. Bedtime routine: watching TV. Patient usually sleeps in the upright position. Once patient falls asleep, patient does not wake up in the middle of the night. Patient Denies waking up from sleep gasping for air or choking. Patient does feel refreshed upon waking up. Patient Reports waking up with a dry mouth in the morning. During sleep patient usually breathes through Mouth. There has not been a recent change in weight. Daytime sleepiness is not a problem. There is no history of cataplexy, sleep paralysis or hypnagogic hallucinations. There is no history of a viral illness or significant head injury prior to the start of daytime sleepiness. Patient does not take naps. Patient does not drive. Patient does not drink caffeinated beverages per day. Patient Reports having an urge to move the legs. Patient is taking Requip. Patient Denies any history of parasomnias. Patient has not had a nasal fracture or other facial trauma. Patient has not had any upper airway surgery. Patient does not have problems with nocturnal gastroesophageal reflux. Patient does not have difficulty with memory or concentration. SLEEP FUNCTION OUTCOME MEASURES ESS: 01/12 PAST TREATMENTS: None PRIOR SLEEP STUDIES: None OTHER RELEVANT LABS AND STUDIES: None Source of history: self. ROS EXAM: CONSTITUTIONAL: No change in weight EYE: No recent significant change in vision EARS: No ear pain NOSE: No history of frequent colds or sinusitis MOUTH: No bleeding gums NECK: No lumps or masses PULMONARY: No cough, sputum, or hemoptysis CARDIOVASCULAR: No chest pain SLEEP: see [facility] Health Status Allergies as of 01/15/2024 - Reviewed 01/15/2024 Allergen Reaction Noted Honey bee venom protein [bee venom] Anaphylaxis 06/25/2021 Hydrocortisone 12/25/2021 Cortisone Muscle pain 04/09/2017 Current Outpatient Medications Medication Sig Dispense Refill oxygen IN GAS 2 LPM at bedtime [...] morning and evening meals. 60 Tablet 5 Furosemide 80 MG Oral Tablet (Lasix) Take 1 Tablet by mouth in the morning and 1 Tablet before bedtime. 180 Tablet 3 Potassium Chloride 20 MEQ Oral Packet Take 20 mEq by mouth in the morning. 30 Packet 5 Trelegy Ellipta 100-62.5-25 MCG/ACT Aerosol Powder Breath Activated (Zvkrgnuajog-Pancllqjxsjo-Puqzrfhjyi) Inhale 1 Puff by mouth in the morning. 60 Each 6 Vitamin D3 50 MCG (2000 UT) Oral Capsule Take 1 Capsule by mouth in the morning. 90 Capsule 1 Cetirizine HCl 10 MG Oral Capsule Take 1 Capsule by mouth at bedtime. 90 Capsule 3 buPROPion HCl ER (XL) 300 MG Oral Tablet Extended Release 24 Hour (Wellbutrin XL) Take 1 Tablet by mouth in the morning. 90 Tablet 1 Gabapentin 600 MG Oral Tablet (Neurontin) Take 1 Tablet by mouth in the morning and 1 Tablet beforebedtime. 180 Tablet 3 Eliquis 5 MG Oral Tablet take 1 tablet by mouth every morning and at bedtime 60 Tablet 3 traZODone HCl 100 MG Oral Tablet (Desyrel) Take 1 Tablet by mouth at bedtime. 30 Tablet 5 Sertraline HCl 100 MG Oral Tablet (Zoloft) Take 1 Tablet by mouth in the morning. 90 Tablet 3 Acetaminophen 500 MG Oral Tablet (Tylenol) Take 1 Tablet by mouth every 6 hours as needed. Azelastine HCl 0.1 % Nasal Solution (Astelin) Administer 1 Comstock into nostril in the morning and 1 Comstock before bedtime. 30 mL 12 Albuterol Sulfate (2.5 MG/3ML) 0.083% Inhalation Nebulization Solution (Proventil) Inhale 1 Vial via nebulizer every 4 hours as needed for Wheezing or Shortness of Breath. 180 mL 11 Melatonin 3 MG Oral Tablet Take 1 Tablet by mouth at bedtime. 30 Tablet 1 Albuterol Sulfate HFA 108 (90 Base) MCG/ACT Inhalation Aerosol Solution Take 2 puffs every four hours as need for shortness of breath or wheezing 18 g 3 rOPINIRole HCl 2 MG Oral Tablet (Requip) Take 1 Tablet by mouth in the morning and 1 Tablet before bedtime. 60 Tablet 5 Current Facility-Administered Medications Medication Dose Route Frequency Provider Last Rate Last Admin Albuterol Sulfate (Proventil) (5 MG/ML) 0.5% *conc* inhalation solution 2.5 mg 2.5 mg Nebulizer Chance Larson MD Past Medical History: Diagnosis Date Acute deep vein thrombosis (DVT) of right peroneal vein ([facility]) 09/26/2021 02/28/14 Pulmonary note. (Z86.718) History of DVT (deep vein thrombosis) Right peroneal DVT seen on duplex on 09/15/21. Multiple PEs and hospitalized from 09/14/21 to 09/21/21. Provoked? 6 months, still on blood thinners? Acute pulmonary embolism without acute cor pulmonale ([facility]) 12/02/2021 02/28/22 Pulmonary note Pt hospitalized from 09/14/21 to 09/21/21 with bilateral subsegmental PE, 1stunprovoked PE Allergic rhinitis 11/17/2013 Anxiety 11/17/2013 B12 deficiency 11/17/2013 Benzodiazepine abuse, episodic ([facility]) 05/21/2018 Chronic diastolic heart failure ([facility]) 02/28/2021 Chronic hypoxemic respiratory failure ([facility]) 04/21/2021 Chronic sinusitis 07/22/2014 COPD (chronic obstructive pulmonary disease) ([facility]) COPD, group D, by GOLD 2017 classification ([facility]) 03/29/2020 Nearing end-stage Per COPD GOLD Classification COPD, severity to be determined (HCC) 11/17/2013 Cor pulmonale, chronic (HCC) 03/08/2022 Depression 11/17/2013 DJD (degenerative joint disease), [...] 3a chronic kidney disease ([facility]) 2023-11-22 Adding I13.0, I50.32, N18.31-Hypertensive heart [...] SACRAL performed by Fawn Vee MD at [facility] INJECT DX/THER SUBSTANCE INTERLAMINAR LUMBAR/SACRAL W IMAGE GUIDE N/A 09/17/2020 INJECTION SPINE LUMBAR OR SACRAL performed by Katie Plunkett MD at [facility] LIGATE/CUT OVIDUCT(S) LUMBAR / SACRAL EPIDURAL, ADD'L LEVEL Right 10/06/2019 INJECTION TRANSFORAMINAL EPIDURAL LUMBAR OR SACRAL ADDITIONAL performed by Fawn Vee MD at [facility] LUMBAR / SACRAL EPIDURAL, SINGLE LEVEL Right 10/06/2019 INJECTION TRANSFORAMINAL EPIDURAL LUMBAR OR SACRAL performed by Fawn Vee MD at [facility] REMOVE GALLBLADDER 2011 REPAIR RUPTURED ROTATOR CUFF, CHRON Bilateral Social History Socioeconomic History Marital status: Spouse [...] on file Housing Stability: Not on file Family History Problem Relation Age of Onset Alcohol and Other Disorders Associated Mother Emphysema Mother No Known Problems Father Hyperlipidemia Sister Arthritis Sister Hyperlipidemia Sister Immunodeficiency Daughter On gammaglobulin replacement therapy No Known Problems Brother (Half) No Known Problems Sister (Half) Suicide attempts Sister (Half) 30 BP 117/55 | Pulse 84 | Ht 1.676 m (5' 6") | Wt 89.4 kg (197 lb) | BMI 31.80 kg/m | BSA 2.04 m GENERAL: alert, healthy, no distress, well nourished, and well developed Exam: Const: No signs of acute distress present HEENT: Normocephalic, Nasal congestion absent, nasal valve incompetence absent, Posterior airspace:Montiel tongue position 3, Retrognathia absent, Overbite absent, High arched palate absent, Tonguescalloping/ridging absent. Throat: Uvula. Neck: Supple and symmetric. Resp: CTA and negative wheezes/rhonchi/rales Heart: Rhythm is regular. No heart murmur appreciated. Abdomen: Positive bowel sounds. Extremities: No edema of the lower limbs bilaterally. Musculoskeletal: Walks with a normal gait. Skin: Skin is warm and dry. Neuro: Coordination normal. No involuntary movement. Psych: Patient's attitude is cooperative. Mood is normal. Affect is normal. Impression and Plan Patient is a 63 yo lady with history of COPD on oxygen 4 LPM, depression who came with history of nocturnal hypoxia DARCY RLS Continue with Requip PSG The patient has significant daytime sleepiness, snoring, witnessed apneas, waking up gasping for air and a narrow airway on exam Discussed the diagnosis and consequences including but not limited to i.e increased risk for hypertension, arrhthymias, stroke, congestive heart failure and . Treatment options discussed in detail, CPAP therapy explained. All questions were answered. Consider weight loss. Blood pressure was today. JNC 7 lists DARCY as a causal risk factor for hypertension. Effective treatment of hypertension decreases cardiovascular risk/injury Recommended patient keep consistent bed/wake times and to get 7-8 hours of sleep. Reviewed good sleep hygiene. Advised patient on the dangers of drowsy driving and not to drive when drowsy. F/U in 2 weeks after PSG Thank you for referring this patient to the Sleep Clinic. Cc: SINAN Amos MD documented in this encounter Nursing Notes * Jelena Garvey LPN - 01/15/2024 2:08 PM EST Edna Kebede [id number] Body mass index is 31.8 kg/m. Neck Circumference: 16.75 inches. 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 EPWORTH SLEEPINESS SCALE: 0 = would never doze 1 = slight chance of dozing 2 = moderate chance of dozing 3 = high chance of dozing Sitting and reading - 1 Watching TV - 1 Sitting, inactive in a public place - 0 Passenger in a car - 0 Lying down to rest - 0 Sitting and talking - 0 Sitting quietly after lunch - 0 In a car, stopped in traffic - 0 Total - 01/12 FOSQ-10 Q1. Do you have difficulty concentrating on things you do because you are sleepy or tired?No Q2. Do you generally have difficulty remembering things because you are sleepy or tired?No Q3. Do you have difficulty operating a motor vehicle for short distances (less than 100 miles) because you become sleepy? No Q4. Do you have difficulty operating a motor vehicle for long distances (greater than 100 miles) because you become sleepy?No Q5. Do you have difficulty visiting your family or friends in their home because you become sleepy or tired?No Q6. Has your relationship with family, friends or work colleagues been affected because you are sleepy or tired?No Q7. Do you have difficulty watching a movie or video because you become sleepy or tired?No Q8. Do you have difficulty being as active as you want to be in the evening because you are sleepy or tired?No Q9. Do you have difficulty being as active as you want to be in the morning because you are sleepy or tired?No Q10. Has your mood been affected because you are sleepy or tired? No documented in this encounter Miscellaneous Notes * Pt Handout (on AVS) - Germaine Barrientos MD - 01/15/2024 2:37 PM EST [id number] Obstructive Sleep Apnea Obstructive sleep apnea is a condition caused by air passages becoming narrowed or blocked during sleep. As a result, breathing stops for short periods. Your body wakes up enough for breathing to start again. But you don't remember it. The cycle of stopped breathing and brief awakenings can repeat dozens of times a night. This prevents the body from getting to the deeper stages of sleep that are needed for good rest. Signs of sleep apnea include loud snoring, noisy breathing, and gasping sounds during sleep. Peoplewith sleep apnea often find they use the bathroom many times during the night. Daytime symptoms include waking up tired after a full night's sleep and waking up with headaches. They can also include feeling very sleepy or falling asleep during the day, and having problems with memory or concentration. Risk factors for sleep apnea include: Being overweight Being assigned male at , or being in menopause Smoking Using alcohol or sedating medicines Having enlarged structures in the nose or throat such as enlarged tonsils or adenoids, or extra tissue in the airway Home care Lifestyle changes that can help treat snoring and sleep apnea include: If you're overweight, talk with your healthcare provider about a weight-loss plan for you. Don't drink alcohol for 3 to 4 hours before bedtime. Don't take sedating medicines. Ask your healthcare provider about the medicines you take. If you smoke, talk to your provider about ways to quit. It's important to stay away from secondhand smoke. Don't use e-cigarettes because of their harmful side effects. Sleep on your side. This can help prevent gravity from pulling relaxed throat tissues into your breathing passages. If you have allergies or sinus problems that block your nose, ask your provider for help. Use positive airway pressure (PAP). Discuss with your provider the benefits of using PAP at home. And talk about the type of PAP that's best for you. Follow-up care Follow up with your healthcare provider, or as advised. A diagnosis of sleep apnea is made with a sleep study. Your provider can tell you more about this test. When to get medical care See your healthcare provider if you have daytime symptoms of sleep apnea. These include: Waking up tired after a full night's sleep Waking up with a headache Feeling very sleepy or falling asleep during the day Having problems with memory or concentration Also talk with your provider if your partner tells you that you snore, gasp for air, or stop breathing while you sleep. Seeing your provider is important because sleep apnea can make you more likely to have certain health problems. These include high blood pressure, heart attack, stroke, and sexual dysfunction. If youhave sleep apnea, talk with your healthcare provider about the best treatments for you. Last Reviewed Date: 03/19/202219998669-9400 [employer]. All rights reserved. This information is not intended as a substitute for professional medical care. Always follow your healthcare professional's instructions. documented in this encounter Plan of Treatment Upcoming Encounters Date Type Department Care Team (Late st Contact Info) Description 01/16/2024 12:20 PM EST Office Visit [facility] Osei Dasilva [address] [place] [address] Pi[place] Cazares, [address] [place] [address] 03/10/2024 8:30 PM EDT PulmDiagnostic Sleep Lab, [facility] [address] [place] [address] [facility], Sleep Med [facility] [address] [facility] [address] 06/18/2024 7:40 AM EDT Office Visit [facility] Osei Dasilva [address] [place] [address] Piper Cazares, DO [address] [place] [address] 07/14/2024 1:00 PM EDT PulmDiagnostic Pulmonary Function Lab, [facility] [address] [facility] [address] [facility], [facility] [address] [facility] [place] [address] 07/14/2024 2:00 PM EDT PulmDiagnostic Pulmonary Function Lab, [facility] [address] [place] [address] [place], Pulm Function Room 2 [address] [place] [address] 07/23/2024 3:20 PM EDT Office Visit Pulmonary Medicine Pratibha Anguiano [address] [place] [phone] Chance Zimmerman MD [address] [place] [address] Scheduled Orders Name Type Priority Associated Diagnoses Orde r Schedule SLEEP STUDY, W/O CPAP Procedures Routine DARCY (obstructive sleep apnea) Ordered: 01/15/2024 Health Maintenance Due Date Last Done Comments [...] exists DISCUSS TOBACCO CESSATION (REFER TO SMARTSET #[id number]) 10/15/2024 10/15/2023, 05/31/2023, 01/12/2023, Additional history exists Diabetic Eye Exam 12/10/2024 12/10/2023, , 12/10/2023, Additional history exists CKD PHOS USE SMARTSET [id number] 12/19/202411/21, 09/12/2023, 05/21/2023, Additional history exists CKD HGB USE SMARTSET [id number] 12/23/202412/23, 12/22/2023, 12/21/2023, Additional history exists O2 ASSESSMENT COMPLETED IN PAST YEAR FOR COPD 01/07/2025 01/07/2024 Lipid Panel 04/19/2027 04/19/2022, 12/21, 01/21/2021, Additional history exists Cervical Cancer Screening Discontinued Pap Smear Discontinued 10/10/2016, 10/21, 11/17/2013, Additional history exists Pneumococcal Vaccine: 65+ Years Completed 05/10/2022, 11/17/2013 LUNG CANCER SCREENING - USE SMARTSET [id number] Completed 09/09/2023, 05/22/2023, 12/15/2022, Additional history exists [...] as of this encounter Visit Diagnoses Diagnosis DARCY (obstructive sleep apnea)- Primary Obstructive sleep apnea (adult) (pediatric) documented in this encounter Advance Directives Latest [...] the patient have Health Care Power of Special Makeup Fx Artist Instructor? No Bag Valve Device? Yes Intubation? [...] First Alternate Health Care Agent Care Teams Welding Pantograph Operator Relationship Specialty Start Date End Date Marcos Maurice PA-C [address] [facility] [place] [address] PCP - General Physician Mud Jack Nozzleman 11/22/23 documented as of this encounter
--- OUTSIDE RECORDS SUMMARY | 2024-04-14 12:59 | External Medical Summary | Summary of Care ---
Author Name Unknown Organization [facility] Address [address] [place] [address] Phone [phone] Care Team Providers Care District Director Name Role Phone Marcos Maurice PA-C Primary Care Provide r Reason for Visit * Reason Onset Date Comments Home Health 01/11/2024 Encounter Details Date Type Department Care Team (Late st Contact Info) Description 01/11/2024 Telephone Family Practice [facility] [address] [place] [address] Marcos Maurice PA-C [address] [facility] [place] [address] Home Health [...] Tablet (Crestor)Indications: Cor pulmonale, chronic ([facility]),COPD, group D, by GOLD 2017 classification ([facility]),Hypertensive heart and kidney disease with chronic diastolic congestive heart failure and stage 3a chronic kidney disease ([facility]),Dyslipidemia,Es sential hypertension with goal blood pressure less than 140/90 Take by mouth 1 Tablet in the morning. 90 Tablet 3 09/22/2022 Active Empagliflozin 10 MG Oral Tablet (Jardiance)Indication s:Type 2 diabetes mellitus with stage 3a chronic kidney disease, without long-term current use of insulin ([facility]) Take 1 Tablet by mouth in the morning. 30 Tablet 11 11/22/2022 Active metFORMIN HCl 1000 MG Oral Tablet (Glucophage)Indicatio ns:Type 2 diabetes mellitus with stage 3a chronic kidney disease, without long-term current use of insulin ([facility]) Take 1 Tablet by mouth 2 times a day with morning and evening meals. 60 Tablet 5 11/22/2022 Active Azelastine HCl 0.1 % Nasal Solution (Astelin) Administer 1 [place] into nostril in the morning and 1 [place] before bedtime. 30 mL 12 01/12/2023 Active Furosemide 80 MG Oral Tablet (Lasix)Indications:Ge neralized osteoarthritis,Chroni c diastolic heart failure ([facility]) Take 1 Tablet by mouth [...] s:COPD, group D, by GOLD 2017 classification ([facility]) Inhale 1 Vial via nebulizer every 4 hours as needed for Wheezing or Shortness of Breath. 180 mL 11 08/02/2023 Active Cetirizine HCl 10 MG Oral CapsuleIndications:Vi ral URI with cough,Acute exacerbation of chronic obstructive pulmonary disease (COPD) ([facility]) Take 1 Capsule by mouth at bedtime. 90 Capsule 3 08/21/2023 Active Melatonin 3 MG Oral Tablet Take 1 Tablet by mouth at bedtime. 30 Tablet 1 09/17/2023 Active buPROPion HCl ER (XL) 300 MG Oral Tablet Extended Release 24 Hour (Wellbutrin XL)Indications:MDD (major depressive disorder), recurrent episode, mild ([facility]) Take 1 Tablet by mouth in the morning. 90 Tablet 1 09/21/2023 Active Albuterol Sulfate HFA 108 (90 Base) MCG/ACT Inhalation Aerosol SolutionIndications:C OPD, severe ([facility]) Take 2 puffs every four [...] 0.5% *conc* inhalation solution 2.5 mgIndications:COPD, severe ([facility]) 2.5 mg NEBULIZER PRN 10/15/2023 10/14/2024 Active [...] - TRES o Class D - Inhaled Bhdrxhtgwybtva-BWNO-SMYG Combination Inhaler (Ernestollegy) o PD-4 Inhibitor (Daliresp) [...] 04/21/2021 Last Assessment & Plan: Referral to [employer] for assistance in getting nicoderm patches covered [...] Assessment & Plan: Currently followed by can slider--not on any antihistamines currently, has follow up [...] as doing housework, yard work or shopping ([place] [facility]) Diagnostic Review: Recent [...] - TRES o Class D - Inhaled Utkwjgqfivsfdq-PNOB-MJXB Combination Inhaler (Trellegy) o PD-4 Inhibitor (Daliresp) [...] (Moderna) 01/28/2021 Pneumococcal Conjugate Vacci ne, 20-valent ([id number]) 05/10/2022 Pneumococcal Polysaccharide PPV23 (Pneumovax) 11/17/2013 Seasonal [...] encounter Miscellaneous Notes * Telephone Encounter - Jaimee Hill LPN - 01/14/2024 4:33 PM EST Spoke with patient and she reports that her SOB is increasing. Patient scheduled for acute appointment on 01/16/24 at 12:20. She states that she will go to the ER if her symptoms get worse. She has appointment tomorrow in [place] for Sleep Medicine. * Telephone Encounter - Piper Cazares DO - 01/14/2024 3:47 PM EST Follow up with patient If she is having worsening symptoms, will need seen and evaluated * Telephone Encounter - Amaris Hackett LPN - 01/11/2024 3:39 PM EST HH Concerns Letty, RN, Calling from: [facility] Report/Concerns of: SOB Symptoms: sob- exertion and intermittent Vitals: T 97.3 P 106 RR 24 BP 142/62 SP O2 94% on 4 LPM Lung sounds Left lung has expiratory wheezes; Right lung is clear but diminished. Weight 202 lbs. Blood sugar 190 at lunchtime non fasting. Narrative: Reports that she was going to D/C the pt today but the pt c/o having a little more SOB than usual, so she is going to recertify HH services. Pt's weight today was 202 lbs and on 01/07/24 pt's weight was 197 lbs. Cough is more productive of white phlegm. Letty advised pt to call HH is sx worsen and if pt is struggling to breath to call 911. Will see pt next on Sunday01/16/24. Pharmacy selected. Please advise. documented in this encounter Plan of Treatment Upcoming Encounters Date Type Department Care Team (Late st Contact Info) Description 01/15/2024 2:00 PM EST Office Visit [facility] [address] [facility] [place] [address] Germaine Barrientos MD [address] [facility] [place] [address] 01/16/2024 12:20 PM EST [facility] [address] [facility] [address] [place] [address] Piper Cazares, DO [address] [place] [address] 06/18/2024 7:40 AM EDT Office Visit [facility] [address] [place] [address] Piper Cazares, DO [address] [place] [address] 07/14/2024 1:00 PM EDT PulmDiagnostic Pulmonary Function Lab, [facility] [address] [facility] [place] [address] [facility], Pul Function Room 1 [address] [facility] [place] [address] 07/14/2024 2:00 PM EDT PulmDiagnostic Pulmonary Function Lab, [facility] [address] [facility] [place] [address] [facility], Pul Function Room 2 [address] [facility] [address] 07/23/2024 3:20 PM EDT [facility] [place] [address] [place] [phone] Chance Zimmerman MD [address] [facility] [address] Health Maintenance Due Date Last Done Comments [...] exists DISCUSS TOBACCO CESSATION (REFER TO SMARTSET #5615) 10/15/2024 10/15/2023, 05/31/2023, 01/12/2023, Additional history exists Diabetic Eye Exam 12/10/2024 12/10/2023, , 12/10/2023, Additional history exists CKD PHOS USE SMARTSET [address] 12/19/202411/21, 09/12/2023, 05/21/2023, Additional history exists CKD HGB USE SMARTSET 43466 12/23/202412/23, 12/22/2023, 12/21/2023, Additional history exists O2 ASSESSMENT COMPLETED IN PAST YEAR FOR COPD 01/07/2025 01/07/2024 Lipid Panel 04/19/2027 04/19/2022, 12/21, 01/21/2021, Additional history exists Cervical Cancer Screening Discontinued Pap Smear Discontinued 10/10/2016, 10/21, 11/17/2013, Additional history exists Pneumococcal Vaccine: 65+ Years Completed 05/10/2022, 11/17/2013 LUNG CANCER SCREENING - USE SMARTSET 29892 Completed 09/09/2023, 05/22/2023, 12/15/2022, Additional history exists [...] the patient have Health Care Power of Bluing Oven Tender? No Bag Valve Device? Yes Intubation? No [...] First Alternate Health Care Agent Care Teams District Director Relationship Specialty Start Date End Date Marcos Maurice PA-C [address] [facility] [place] [address] PCP - General Physician Hse Specialist 11/22/23 documented as of this encounter
--- OUTSIDE RECORDS SUMMARY | 2024-04-14 13:00 | External Medical Summary | Summary of Care ---
Author Name Unknown Organization [facility] Address [address] [place] [address] Phone [phone] Care Team Providers Care Ironer Hand Name Role Phone Marcos Gamble PA-C Primary Care Provide r Reason for Visit * Reason Onset Date Comments Medication Refill 12/27/2023 Encounter Details Date Type Department Care Team (Late st Contact Info) Description 12/27/2023 Refill [facility] [address] [facility] [place] [address] Marcos Gamble PA-C [address] [place] [address] Generalized osteoarthritis* Allergies Active Allergy Reactions Criticality Noted Date Comments Cortisone Muscle pain Medium 04/09/2017 At site of shot Bee Venom Anaphylaxis High 06/25/2021 Hydrocortisone High 12/25/2021 Other reaction(s): PAIN,UNABLE TO MOVE documented as of this encounter (statuses as of 12/27/2023) Medications Medication Sig Dispensed Refills Start Date [...] the morning. 15.8 mL 2 09/22/2022 Active Roflumilast 500 MCG Oral Tablet (Daliresp) Take by mouth 1 Tablet in the morning. 30 Tablet 5 09/22/2022 Active rOPINIRole HCl 2 MG Oral Tablet (Requip)Indications :Primary insomnia,Restless legs syndrome Take by mouth 1 Tablet in the morning AND 1 Tablet before bedtime. 60 Tablet 5 09/22/2022 Active Rosuvastatin Calcium 20 MG Oral Tablet (Crestor)Indication s:Cor pulmonale, chronic ([facility]),COPD, group D, by GOLD 2017 classification ([facility]),Hypertensive heart and kidney disease with chronic diastolic congestive heart failure and stage 3a chronic kidney disease ([facility]),Dyslipidemia, Essential hypertension with goal blood pressure less than 140/90 Take by mouth 1 Tablet in the morning. 90 Tablet 3 09/22/2022 Active traZODone HCl 100 MG Oral Tablet (Desyrel) Take by mouth 1 Tablet before bedtime. 30 Tablet 5 09/22/2022 Active Empagliflozin 10 MG Oral Tablet (Jardiance)Indicati ons:Type 2 diabetes mellitus with stage 3a chronic kidney disease, without long-term current use of insulin ([facility]) Take 1 Tablet by mouth in the morning. 30 Tablet 11 11/22/2022 Active metFORMIN HCl 1000 MG Oral Tablet (Glucophage)Indicat ions:Type 2 diabetes mellitus with stage 3a chronic kidney disease, without long-term current use of insulin ([facility]) Take 1 Tablet by mouth 2 times a day with morning and evening meals. 60 Tablet 5 11/22/2022 Active Azelastine HCl 0.1 % Nasal Solution (Astelin) Administer 1 [place] into nostril in the morning and 1 [place] before bedtime. 30 mL 12 01/12/2023 Active Furosemide 80 MG Oral Tablet (Lasix)Indications: Generalized osteoarthritis,Computer Consultant kunal diastolic heart failure (HCC) Take 1 [...] the morning. 90 Capsule 1 06/21/2023 Active Eliquis 5 MG Oral TabletIndications:P ersonal history of DVT (deep vein thrombosis) take 1 tablet by mouth every morning and at bedtime 60 Tablet 3 07/07/2023 Active Albuterol Sulfate (2.5 MG/3ML) 0.083% Inhalation Nebulization Solution (Proventil)Indicati ons:COPD, group D, by GOLD 2017 classification ([facility]) Inhale 1 Vial via nebulizer every 4 hours as needed for Wheezing or Shortness of Breath. 180 mL 11 08/02/2023 Active Escitalopram Oxalate 20 MG Oral Tablet (Lexapro)Indication s:MARCIE (generalized anxiety disorder) Take 1 Tablet by mouth in the morning. In the morning.. 90 Tablet 1 08/21/2023 Active Cetirizine HCl 10 MG Oral CapsuleIndications: [...] the morning. 90 Tablet 1 09/21/2023 Active Azithromycin 500 MG Oral Tablet (Zithromax) Take 1 Tablet by mouth once a day on Sunday, Sunday, and Sunday only. 13 Tablet 11 10/15/2023 Active Albuterol Sulfate HFA 108 (90 Base) MCG/ACT Inhalation Aerosol SolutionIndications :COPD, severe (HCC) Take 2 puffs every four hours as need for shortness of breath or wheezing 18 g 3 11/22/2023 Active Acetylcysteine 600 MG Oral Capsule (NAC) Take 1 Capsule by mouth in the morning and 1 Capsule before bedtime. Do all this for 10 days. 20 Capsule 0 12/23/2023 4 Active Gabapentin 600 MG Oral Tablet (Neurontin)Indicati ons:Generalized osteoarthritis Take 1 Tablet by mouth in the morning and 1 Tablet before bedtime. 180 Tablet 3 12/27/2023 Active Gabapentin 600 MG Oral Tablet (Neurontin)Indicati ons:Generalized osteoarthritis Take 1 Tablet by mouth in the morning and 1 Tablet before bedtime. 180 Tablet 3 03/26/2023 4 Discontinue d(Refill) Hospital, Clinic, or Other Facility Administered Medication Ordered Dose Route Frequency Start Date End Date Status Albuterol Sulfate (Proventil) (2.5 MG/3ML) 0.083% inhalation solution 2.5 mgIndications:COPD, severe (HCC) 2.5 mg NEBULIZER PRN 10/15/2023 Active Albuterol Sulfate (Proventil) (2.5 MG/3ML) 0.083% inhalation solution 2.5 mgIndications:COPD, severe (HCC) 2.5 mg NEBULIZER PRN 10/15/2023 10/14/2024 Active Albuterol Sulfate (Proventil) (5 MG/ML) 0.5% *conc* inhalation solution 2.5 mgIndications:COPD, severe (HCC) 2.5 mg NEBULIZER PRN 10/15/2023 10/14/2024 Active documented as of this encounter (statuses as of 12/27/2023) Active Problems Problem Noted Date Diagnosed Date Chronic anticoagulation 12/19/2023 Pain in both lower legs 12/19/2023 Acute metabolic encephalopathy 12/19/2023 Chronic respiratory [...] - TRES o Class D - Inhaled Lgafzxtivfdeug-NRME-XBOM Combination Inhaler (Trellegy) o PD-4 Inhibitor (Daliresp) [...] oximeter to monitor SpO2, advised to contact [facility] if <90% and titrate as necessary, Tobacco use disorder 04/21/2021 Last Assessment & Plan: Referral to [employer] for assistance in getting nicoderm patches covered [...] Last Assessment & Plan: 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 Educated on use. Must call [facility] when initiated so further assessment can be made documented as of this encounter (statuses as of 12/27/2023) Immunizations Name Administration Dates Next Due COVID-19 mRNA, LNP-s, No Pre serve, 2-Dose Series (Moderna) 01/28/2021 Pneumococcal Conjugate Vacci ne, 20-valent ([id number]) 05/10/2022 Pneumococcal Polysaccharide PPV23 (Pneumovax) 11/17/2013 Seasonal [...] Date Smoking Tobacco: Former Cigarettes 1 50 Q uit: 11/28/2023 Passive Smoke Exposure: Past Smokeless Tobacco: [...] Telephone Encounter - Marcos Gamble PA-C - 12/27/2023 10:51 AM EST Signed Prescriptions: Disp Refills Gabapentin 600 MG Oral Tablet (Neurontin) 180 Ta*3 Sig: Take 1 Tablet by mouth in the morning and 1 Tablet before bedtime.Authorizing Provider: MARCOS GAMBLE * Telephone Encounter - Yanelis Chauhan LPN - 12/27/2023 9:57 AM EST No prescriptions requested or ordered in this encounter Last Visit: 11/22/2023 (in office), 01/28/2021 (telemedicine) Next Visit: 01/02/2024 Last date the medication was ordered: 03/26/23 Patient Active Problem List Diagnosis Code DJD (degenerative joint disease), cervical M47.812 Generalized osteoarthritis M15.9 Vitamin D deficiency E55.9 MARCIE (generalized anxiety disorder) F41.1 Gastroesophageal reflux disease without esophagitis K21.9 Recurrent major depressive disorder, in partial remission ([facility]) F33.41 Essential hypertension with goal blood pressure less than 140/90 I10 Migraine without aura and without status migrainosus, not intractable G43.009 Chronic seasonal allergic rhinitis due to pollen J30.1 COPD exacerbation ([facility]) J44.1 Dyslipidemia E78.5 Lumbar degenerative disc disease M51.36 Chronic diastolic heart failure (HCC) I50.32 Chronic hypoxemic respiratory failure (HCC) J96.11 Tobacco use disorder F17.200 Pulmonary hypertension (HCC) I27.20 Insomnia G47.00 Personal history of DVT (deep vein thrombosis) Z86.718 Personal history of pulmonary embolism Z86.711 Cor pulmonale, chronic (HCC) I27.81 Acute on chronic respiratory failure with hypoxia and hypercapnia (HCC) J96.21, J96.22 Type 2 diabetes mellitus with stage 3a chronic kidney disease, without long-term current use of insulin ([facility]) E11.22, N18.31 Centrilobular emphysema ([facility]) J43.2 Bilateral lower extremity edema R60.0 COPD, group D, by GOLD 2017 classification ([facility]) J44.9 Chronic respiratory failure with hypoxia and hypercapnia ([facility]) J96.11, J96.12 Chronic anticoagulation Z79.01 Pain in both lower legs M79.661, M79.662 Acute metabolic encephalopathy G93.41 Labs: Lab Results Component Value Date/Time CREATININE - [facility] 1.3 (H) 12/23/2023 03:27 AM CREATININE - [facility] 0.9 05/30/2019 01:57 PM CREATININE, RANDOM URINE - [facility] 114 02/03/2022 12:03 PM CREATININE, RANDOM URINE - [facility] 58 07/05/2017 09:40 AM CREATININE-OUTSIDE LAB 0.90 11/18/2023 12:00 AM Lab Results Component Value Date/Time POTASSIUM - [facility] 3.4 (L) 12/23/2023 03:27 AM POTASSIUM - [facility] 4.1 05/30/2019 01:57 PM POTASSIUM-OUTSIDE LAB 3.5 (A) 11/18/2023 12:00 AM Lab Results Component Value Date/Time TSH - [facility] 3.00 01/13/2022 03:00 PM TSH - [facility] 3.08 01/13/2022 03:00 PM TSH - [facility] 2.73 01/10/2016 09:21 AM Lab Results Component Value Date/Time LDL (CALCULATED)-[facility] 100 04/24/2016 12:00 AM LDL (CALCULATED)-[facility] 170 (A) 12/05/2013 12:00 AM LDL (DIRECT MEASURE)-OUTSIDE LAB 148 (A) 11/02/2014 12:00 AM LDL CHOLESTEROL (CALCULATED) - [facility] 190 (H) 04/19/2022 04:08 AM LDL CHOLESTEROL (CALCULATED) - [facility] 162 (H) 01/13/2022 03:00 PM LDL CHOLESTEROL (CALCULATED) - [facility] 136 (H) 07/05/2017 09:35 AM LDL CHOLESTEROL (CALCULATED) - [facility] 100 08/27/2015 08:07 AM LDL CHOLESTEROL (DIRECT MEASURE) - [facility] NOT APPLICABLE 07/05/2017 09:35 AM LDL CHOLESTEROL (DIRECT MEASURE) - [facility] 172 (H) 01/10/2016 09:21 AM Lab Results Component Value Date/Time ALT - [facility] 12 12/19/2023 12:36 PM ALT - [facility] 16 05/30/2019 01:57 PM ALT-OUTSIDE LAB 20 11/13/2017 12:00 AM Hemoglobin AIC Results: Lab Results Component Value Date/Time HEMOGLOBIN A1C - [facility] 8.0 (H) 12/20/2023 05:03 AM HEMOGLOBIN A1C - [facility] 7.5 (H) 09/09/2023 06:43 AM HEMOGLOBIN A1C - [facility] 6.5 (H) 05/22/2023 03:58 AM HEMOGLOBIN A1C - [facility] 5.7 (H) 05/30/2019 01:57 PM HEMOGLOBIN A1C - [facility] 5.7 07/05/2017 09:35 AM HEMOGLOBIN A1C - [facility] 5.8 05/29/2016 11:51 AM documented in this encounter Plan of Treatment Upcoming Encounters Date Type Department Care Team (Late st Contact Info) Description 01/02/2024 11:00 AM EST Office Visit [facility] [address] [place] [address] Piper Cazares DO [address] [place] [address] 01/07/2024 9:00 AM EST Office Visit Pulmonary Medicine Pratibha Anguiano [address] [place] [phone] Marek Berger PA-C [address] [place] [address] [place] [address] 06/18/2024 7:40 AM EDT Office Visit [facility] [address] [place] [address] Piper Cazares, [address] [place] [address] 07/14/2024 1:00 PM EDT PulmDiagnostic Pulmonary Function Lab, [facility] [address] [facility] [address] [address], Pulm Function Room 1 [address] [place] [address] 07/14/2024 2:00 PM EDT PulmDiagnostic Pulmonary Function Lab, [facility] [address] [place] [address] [facility], Pul Function Room 2 [address] [place] [address] 07/23/2024 3:20 PM EDT Office Visit Pulmonary Medicine [facility] [place] [address] [place] [phone] Chance Zimmerman MD [address] [place] [address] Health Maintenance Due Date Last Done Comments Alpha-1 Antitrypsin 1976 Diabetic Foot Exam 1976 Cologuard 2003 Sigmoidoscopy 2003 Zoster Vaccines (1 of 2) 2008 Fecal Occult Blood Test 11/17/2014 11/17/2013 Hepatitis B (1 of 3 - Risk 3-dose series) 2018 Mammogram 11/27/2018 11/27/2017, 1204/2016, 12/05/2013 Colonoscopy 09/20/2020 09/20/2010 Colorectal Cancer Screening 09/20/2020 *ADVANCE DIRECTIVE NOT ON FILE 04/29/2022 Albumin/Creatinine Ratio 02/03/2023 02/03/2022, 06/19 Depression Screening 02/20/2023 02/20/2022 COVID-19 Vaccine ( season) 2023 01/28/2021 DXA Scan 2023 DTaP,Tdap,and Td Vaccines (2 - Td or Tdap) 11/17/2023 11/17/2013 HbA1c 06/19/2024 12/20/2023, 08/20, 05/22/2023, Additional history exists GFR 06/22/2024 12/23/2023, 0201/2024, 12/21/2023, Additional history exists Diabetic Eye Exam 12/10/2024 12/10/2023, , 12/10/2023, Additional history exists CKD PHOS USE SMARTSET 24273 12/19/202411/21, 09/12/2023, 05/21/2023, Additional history exists CKD HGB USE SMARTSET 10202 12/23/202412/23, 12/22/2023, 12/21/2023, Additional history exists O2 ASSESSMENT COMPLETED IN PAST YEAR FOR COPD 12/23/2024 12/23/2023 Lipid Panel 04/19/2027 04/19/2022, 12/21, 01/21/2021, Additional history exists Cervical Cancer Screening Discontinued Pap Smear Discontinued 10/10/2016, 10/21, 11/17/2013, Additional history exists Pneumococcal Vaccine: 65+ Years Completed 05/10/2022, 11/17/2013 LUNG CANCER SCREENING - USE SMARTSET 32563 Completed 09/09/2023, 05/22/2023, 12/15/2022, Additional history exists Influenza Vaccine (FLU shot) Completed 09/13/2023, 09/10/2019, 11/20/2017, Additional history exists GARDASIL-HPV IMMUNIZATION SERIES Aged Out No longer eligible based on patient's age to complete this topic HPV/Co-Test Discontinued MENINGOCOCCAL (MENACTRA/MENVEO) Aged Out No longer eligible based on patient's age to complete this topic documented as of this encounter Medical Devices Not on filedocumented as of this encounter Visit Diagnoses Diagnosis Generalized osteoarthritis- Primary Generalized osteoarthrosis, unspecified site documented in this encounter Advance Directives Latest [...] the patient have Health Care Power of It Business Analyst? No Bag Valve Device? Yes Intubation? [...] Agents on File Name Relationship Healthcare Agent [facility] Communication Martinez GRIGSBY Adult Child First Alternate Health Care Agent Peter Grigsby Adult Child First Alternate Health Care Agent Jazmine Corona Adult Child First Alternate Health Care Agent Care Teams Ironer Hand Relationship Specialty Start Date End Date Marcos Gamble PA-C [address] [facility] [place] [address] PCP - General Physician Developer [employer] 11/22/23 documented as of this encounter
--- OUTSIDE RECORDS SUMMARY | 2024-04-14 13:00 | External Medical Summary | Summary of Care ---
Author Name Unknown Organization [facility] Address [address] [place] [address] Phone [phone] Care Team Providers Care Audio Visual Equipment Rental Clerk Name Role Phone Marcos Maurice PA-C Primary Care Provide r Reason for Visit * Reason Onset Date Comments Hospital Follow-Up [facility], edd g issues, chronic Hospital Follow-Up 01/02/2024 Encounter Details Date Type Department Care Team (Late st Contact Info) Description 01/02/2024 11:00 AM EST Office Visit [facility] Osei Dasilva [address] [place] [id number] Piper Cazares DO [address] [facility] [place] [address] Hospital discharge follow-up*; Acute respiratory failure with hypoxia and hypercapnia (HCC); MARCIE (generalized anxiety disorder); Recurrent major depressive disorder, in partial remission (HCC); Personal history of DVT (deep vein thrombosis); Primary insomnia; Restless legs syndrome Allergies Active Allergy Reactions Criticality Noted Date Comments Cortisone Muscle pain Medium 04/09/2017 At site of shot Bee Venom Anaphylaxis High 06/25/2021 Hydrocortisone High 12/25/2021 Other reaction(s): PAIN,UNABLE TO MOVE documented as of this encounter (statuses as of 01/02/2024) Medications Medication Sig Dispensed Refills Start Date End Date Status Acetaminophen 500 MG Oral Tablet (Tylenol) Take 1 Tablet by mouth every 6 hours as needed. 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 15.8 mL 2 2 Active Rosuvastatin Calcium 20 MG Oral Tablet (Crestor)Indicatio ns:Cor pulmonale, chronic ([facility]),COPD, group D, by GOLD 2017 classification ([facility]),Hypertensive heart and kidney disease with chronic diastolic congestive heart failure and stage 3a chronic kidney disease ([facility]),Dyslipidemia ,Essential hypertension with goal blood [...] 0.1 % Nasal Solution (Astelin) Administer 1 [place] into nostril in the morning and 1 [place] before bedtime. 30 mL 12 3 Active Furosemide 80 MG Oral Tablet (Lasix)Indications :Generalized osteoarthritis,Chr onic diastolic heart failure ([facility]) [...] Vitamin D3 50 MCG (2000 UT) Oral CapsuleIndications :Vitamin D deficiency Take 1 Capsule by mouth in the morning. 90 Capsule 1 3 Active Albuterol Sulfate (2.5 MG/3ML) 0.083% Inhalation Nebulization Solution (Proventil)Indicat ions:COPD, group D, by GOLD 2017 classification ([facility]) Inhale 1 Vial via nebulizer every 4 hours as needed for Wheezing or Shortness of Breath. 180 mL 11 3 Active Cetirizine HCl 10 MG Oral CapsuleIndications :Viral URI with cough,Acute exacerbation of chronic obstructive pulmonary disease (COPD) ([facility]) Take 1 Capsule by mouth at bedtime. 90 Capsule 3 3 Active Melatonin 3 MG Oral Tablet Take 1 Tablet by mouth at bedtime. 30 Tablet 1 3 Active buPROPion HCl ER (XL) 300 MG Oral Tablet Extended Release 24 Hour (Wellbutrin XL)Indications:MDD (major depressive disorder), recurrent episode, mild (HCC) Take 1 Tablet by mouth in the morning. 90 Tablet 1 3 Active Albuterol Sulfate HFA 108 (90 Base) MCG/ACT Inhalation Aerosol SolutionIndication s:COPD, severe ([facility]) Take 2 puffs every four hours as need for shortness of breath or wheezing 18 g 3 4 Active Gabapentin 600 MG Oral Tablet (Neurontin)Indicat ions:Generalized osteoarthritis Take 1 Tablet by mouth in the morning and 1 Tablet before bedtime. 180 Tablet 3 4 Active Eliquis 5 MG Oral TabletIndications: Personal history of DVT (deep vein thrombosis) take 1 tablet by mouth every morning and at bedtime 60 Tablet 3 4 Active rOPINIRole HCl 2 MG Oral Tablet (Requip)Indication s:Primary insomnia,Restless legs syndrome Take 1 Tablet by mouth in the morning and 1 Tablet before bedtime. 60 Tablet 5 4 Active traZODone HCl 100 MG Oral Tablet (Desyrel) Take 1 Tablet by mouth at bedtime. 30 Tablet 5 4 Active Sertraline HCl 100 MG Oral Tablet (Zoloft)Indication s:MARCIE (generalized anxiety disorder),Recurren t major depressive disorder, in partial remission (HCC) Take 1 Tablet by mouth in the morning. 90 Tablet 3 4 Active Roflumilast 500 MCG Oral [...] Tablet 5 2 01/02/20 24 Discontinued(Re fill) Eliquis 5 MG Oral TabletIndications: Personal history of DVT (deep vein thrombosis) take 1 tablet by mouth every morning and at bedtime 60 Tablet 3 3 01/02/20 24 Discontinued(Re fill) Escitalopram Oxalate 20 MG Oral Tablet (Lexapro)Indicatio ns:MARCIE (generalized anxiety disorder) Take 1 Tablet by mouth in the morning. In the morning.. 90 Tablet 1 3 01/02/20 24 Discontinued(Re fill) Azithromycin 500 MG Oral Tablet (Zithromax) Take 1 Tablet by mouth once a day on Sunday, Sunday, and Sunday only. 13 Tablet 11 3 01/02/20 24 Discontinued(En d of Procedure) Acetylcysteine 600 MG Oral Capsule (NAC) Take 1 Capsule by mouth in the morning and 1 Capsule before bedtime. Do all this for 10 days. 20 Capsule 0 4 01/02/20 24 Discontinued(En d of Procedure) Escitalopram Oxalate 20 MG Oral Tablet (Lexapro)Indicatio ns:MARCIE (generalized anxiety disorder) Take 1 Tablet by mouth in the morning. In the morning.. 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 Educated on use. Must call [facility] when initiated so further assessment can be made documented as of this encounter (statuses as of 01/02/2024) Immunizations Name Administration Dates Next Due COVID-19 mRNA, LNP-s, No Pre serve, 2-Dose Series (Moderna) 01/28/2021 Pneumococcal Conjugate Vacci ne, 20-valent ([id number]) 05/10/2022 Pneumococcal Polysaccharide PPV23 (Pneumovax) 11/17/2013 Seasonal [...] Smoking Tobacco: Some Days Cigarettes 1 50 Last attempted to quit: 11/28/2023 Passive Smoke Exposure: Past Smokeless Tobacco: Never Tobacco Cessation:Ready to Q uit: Not Asked; Counseling Given: No Alcohol Use Standard Drinks/Week Comments No 0 [...] Reading Time Taken Comments Blood Pressure 114/58 01/02/2024 11:07 AM EST Pulse 116 01/02/2024 11:07 AM EST Temperature 36.6 C (97.9 F) 01/02/2024 11:[address] Respiratory Rate 22 01/02/2024 11:07 AM EST Oxygen Saturation 95% 01/02/2024 11:07 AM EST 3L Inhaled Oxygen Concentration - - Weight 89.6 kg (197 lb 9.6 oz) 01/02/2024 11:07 AM EST Height 167.6 cm (5' 6") 01/02/2024 11:07 AM EST Body Mass Index 31.89 01/02/2024 11:07 AM EST documented in this encounter Functional Status [...] as of this encounter Progress Notes * Piper Cazares, DO - 01/02/2024 11:12 AM EST SUBJECTIVE: Edna Kebede is a 63 year old female. Chief Complaint Patient presents with Hospital Follow-Up [facility], breathing issues, chronic Hospital Follow-Up Recent Admission: Patient was recently admitted to [facility]. The date of discharge was 12/23/23. Discharge report received and reviewed. HPI: 63-year-old female here today for hospital follow-up Patient was having worsening increased shortness of breath Was seen in the emergency room, admitted for acute on chronic respiratory failure, received supportive care with BiPAP, overall patient improved and was discharged home Please see summary below Overall patient is feeling significantly better She does have home nursing and physical therapy coming into the home Her breathing seems to be back to baseline, she has essentially quit smoking and overall feeling good She does feel a little bit more depressed lately, she is currently on 300 mg Wellbutrin 20 mg of Lexapro, also takes gabapentin and trazodone In ED, note to have low grade temp and SpO2 89% on her usual 4 liters NC. Normotensive, + tachypneaand resting tachycardia. VBG with pH 7.421, pO2 29.7, pCO2 73 (56.9-77.9 in past). Initial loyficss47 with repeat 75 (baseline 19-48), BNP 94, K+ 2.7, BUN/creat 24/1.2 consistent with baseline, glucose 240, D-dimer 1.11, WBC 8.02, H/H 10.2/32.9 consistent with baseline, respiratory PCR negative, LFTs unremarkable, CXR negative for acute findings.CT PE study negative but limited study with timingof bolus and motion degradation showing Bilateral atelectasis. Mild emphysematous changes. No evidence of suspicious pulmonary nodule or focal consolidation. Debris is identified in the trachea. , bilat LE vascular duplex negative HOSPITAL COURSE (focused): 73-year-old woman with PMH severe COPD, chronic respiratory failure (4L), tobacco use disorder, PE/DVT, restless leg presenting with worsening shortness of breath and hypoxia while on baseline supplemental oxygen. Admitted for acute on chronic respiratory failure with hypoxia hypercarbia in the setting of COPD exacerbation and possible OHS. - Appreciate pulmonary input - initially was refusing BiPAP which led to her being confused due to elevated CO2. Her mentation improved after using BiPAP. She is now on her home supplemental oxygen. Underwent ambulatory pulse oxand noted to require 4 L at rest and with ambulation which is what she is currently on at home. - continue PAYMENT PROCESSOR inhalers. - CXR and CT PE were reviewed previously and there was no evidence of consolidation or infiltrate. Continue azithromycin MWF as previously taken - completed 5 day course of steroids - continue PAYMENT PROCESSOR Lasix - evaluated by PT and OT. Care management has set up home health with [facility] Patient Active Problem List Diagnosis Code DJD (degenerative joint disease), cervical M47.812 Generalized osteoarthritis M15.9 Vitamin D deficiency E55.9 MARCIE (generalized anxiety disorder) F41.1 Gastroesophageal reflux disease without esophagitis K21.9 Recurrent major depressive disorder, in partial remission ([facility]) F33.41 Essential hypertension with goal blood pressure less than 140/90 I10 Migraine without aura and without status migrainosus, not intractable G43.009 Chronic seasonal allergic rhinitis due to pollen J30.1 COPD exacerbation ([facility]) J44.1 Dyslipidemia E78.5 Lumbar degenerative disc disease M51.36 Chronic diastolic heart failure ([facility]) I50.32 Chronic hypoxemic respiratory failure ([facility]) J96.11 Tobacco use disorder F17.200 Pulmonary hypertension ([facility]) I27.20 Insomnia G47.00 Personal history of DVT (deep vein thrombosis) Z86.718 Personal history of pulmonary embolism Z86.711 Cor pulmonale, chronic ([facility]) I27.81 Acute on chronic respiratory failure with hypoxia and hypercapnia ([facility]) J96.21, J96.22 Type 2 diabetes mellitus with stage 3a chronic kidney disease, without long-term current use of insulin ([facility]) E11.22, N18.31 Centrilobular emphysema ([facility]) J43.2 Bilateral lower extremity edema R60.0 COPD, group D, by GOLD 2017 classification ([facility]) J44.9 Chronic respiratory failure with hypoxia and hypercapnia ([facility]) J96.11, J96.12 Chronic anticoagulation Z79.01 Acute metabolic [...] 0.1 % Nasal Solution (Astelin) Administer 1 [place] into nostril in the morning and 1 [place] before bedtime. 30 mL 12 Furosemide 80 MG Oral Tablet (Lasix) Take 1 Tablet by mouth in the morning and 1 Tablet before bedtime. 180 Tablet 3 Potassium Chloride 20 MEQ Oral Packet Take 20 mEq by mouth in the morning. 30 Packet 5 Trelegy Ellipta 100-62.5-25 MCG/ACT Aerosol Powder Breath Activated (Cdvvihkknaw-Xwdstsxtrswp-Sftiahfezy) Inhale 1 Puff by mouth in the [...] mouth in the morning. 90 Tablet 3 Current Facility-Administered Medications Medication Dose Route Frequency Provider Last Rate Last Admin Albuterol Sulfate (Proventil) (5 MG/ML) 0.5% *conc* inhalation solution 2.5 mg 2.5 mg Nebulizer Chance Larson MD Current and discharge medications have been reconciled. Review of patient's allergies indicates: Allergen Reactions Honey Bee Venom Protein [Bee Venom] Anaphylaxis Hydrocortisone Other reaction(s): PAIN,UNABLE TO MOVE Cortisone Muscle pain At site of shot OBJECTIVE: BP 114/58 | Pulse 116 | Temp 36.6 C (97.9 F) (Temporal Artery) | Resp 22 | Ht 1.676 m (5' 6") |Wt 89.6 kg (197 lb 9.6 oz) | SpO2 95% Comment: 3L | BMI 31.89 kg/m | BSA 2.04 m REVIEW OF SYSTEMS: PHYSICAL EXAM: BP 114/58 | Pulse 116 | Temp 36.6 C (97.9 F) (Temporal Artery) | Resp 22 | Ht 1.676 m (5' 6") |Wt 89.6 kg (197 lb 9.6 oz) | SpO2 95% Comment: 3L | BMI 31.89 kg/m | BSA 2.04 m Physical Exam Vitals and nursing note reviewed. Constitutional: General: She is not in acute distress. Appearance: Normal appearance. She is well-developed. She is not ill-appearing or diaphoretic. HENT: Head: Normocephalic and atraumatic. Right Ear: External ear normal. Left Ear: External ear normal. Mouth/Throat: Mouth: Mucous membranes are moist. Eyes: General: No scleral icterus. Right eye: No discharge. Left eye: No discharge. Cardiovascular: Rate and Rhythm: Normal rate and regular rhythm. Heart sounds: Normal heart sounds. No murmur heard. Pulmonary: Effort: Pulmonary effort is normal. No respiratory distress. Breath sounds: Normal breath sounds. No wheezing, rhonchi or rales. Abdominal: General: Bowel sounds are normal. There is no distension. Palpations: Abdomen is soft. Musculoskeletal: General: No deformity. Cervical back: Neck supple. Right lower leg: No edema. Left lower leg: No edema. Skin: General: Skin is warm and dry. Neurological: Mental Status: She is alert and oriented to person, place, and time. Psychiatric: Mood and Affect: Mood normal. Behavior: Behavior normal. Thought Content: Thought content normal. Judgment: Judgment normal. ASSESSMENT: Hospital discharge follow-up (Primary) - DISCH MED RECON CUR MED LIS Acute respiratory failure with hypoxia and hypercapnia (HCC) MARCIE (generalized anxiety disorder) - Sertraline HCl 100 MG Oral Tablet (Zoloft); Take 1 Tablet by mouth in the morning. Recurrent major depressive disorder, in partial remission (HCC) - Sertraline HCl 100 MG Oral Tablet (Zoloft); Take 1 Tablet by mouth in the morning. Personal history of DVT (deep vein thrombosis) - Eliquis 5 MG Oral Tablet; take 1 tablet by mouth every morning and at bedtime Primary insomnia - rOPINIRole HCl 2 MG Oral Tablet (Requip); Take 1 Tablet by mouth in the morning and 1 Tablet before bedtime. Restless legs syndrome - rOPINIRole HCl 2 MG Oral Tablet (Requip); Take 1 Tablet by mouth in the morning and 1 Tablet before bedtime. Other orders - traZODone HCl 100 MG Oral Tablet (Desyrel); Take 1 Tablet by mouth at bedtime. Overall patient's respiratory status seems to be improved and back to baseline Will continue all her medications Except Will change her Lexapro to Zoloft and titrate as needed Recommend she call the office with any worsening symptoms Follow-up at regular scheduled visit Follow Up: Return for Keep scheduled appointment. | For: Keep scheduled appointment I spent a total of 30-39 minutes (exact time 30 mins) minutes on the date of service in preparation, delivery, and documentation of the care provided to Edna Kebede excluding any time spent in performance of separately billed services. Piper Cazares DO documented in this encounter Nursing Notes * Negar Vaz LPN - 01/02/2024 11:04 AM EST Chief Complaint Patient presents with Hospital Follow-Up [facility], breathing issues, chronic documented in this encounter Plan of Treatment Upcoming Encounters Date Type Department Care Team (Late st Contact Info) Description 01/07/2024 9:00 AM EST Office Visit Pulmonary Medicine Pratibha Anguiano [address] [place] [phone] Marek Berger PA-C [address] [facility] [place] [address] 06/18/2024 7:40 AM EDT Office Visit On License Of [facility] [address] [facility] [place] [address] Piper Cazares DO [address] [facility] [place] [address] 07/14/2024 1:00 PM EDT PulmDiagnostic Pulmonary Function Lab, [facility] [address] [facility] [place] [address] [facility] [place] [address] 07/14/2024 2:00 PM EDT PulmDiagnostic Pulmonary Function Lab, [facility] [address] [facility] [place] [address] [facility] [address] 07/23/2024 3:20 PM EDT Office Visit Pulmonary Medicine Pratibha Anguiano [address] [place] [phone] Chance Zimmerman MD [address] [place] [address] Health Maintenance Due Date Last Done Comments Alpha-1 Antitrypsin 1976 Diabetic Foot Exam 1976 Cologuard 2003 Sigmoidoscopy 2003 Zoster Vaccines (1 of 2) 2008 Fecal Occult Blood Test 11/17/2014 11/17/2013 Hepatitis B (1 of 3 - Risk 3-dose series) 2018 Mammogram 11/27/2018 11/27/2017, 04/2016, 12/05/2013 Colonoscopy 09/20/2020 [...] exists DISCUSS TOBACCO CESSATION (REFER TO SMARTSET #7796) 10/15/2024 10/15/2023, 05/31/2023, 01/12/2023, Additional history exists Diabetic Eye Exam 12/10/2024 12/10/2023, , 12/10/2023, Additional history exists CKD PHOS USE SMARTSET 30275 12/19/202411/21, 09/12/2023, 05/21/2023, Additional history exists CKD HGB USE SMARTSET 31424 12/23/202412/23, 12/22/2023, 12/21/2023, Additional history exists O2 ASSESSMENT COMPLETED IN PAST YEAR FOR COPD 01/02/2025 01/02/2024 Lipid Panel 04/19/2027 04/19/2022, 12/21, 01/21/2021, Additional history exists Cervical Cancer Screening Discontinued Pap Smear Discontinued 10/10/2016, 10/21, 11/17/2013, Additional history exists Pneumococcal Vaccine: 65+ Years Completed 05/10/2022, 11/17/2013 LUNG CANCER SCREENING - USE SMARTSET 13332 Completed 09/09/2023, 05/22/2023, 12/15/2022, Additional history exists [...] as of this encounter Visit Diagnoses Diagnosis Hospital discharge follow-up- Primary Other follow-up examination Acute respiratory failure with hypoxia and hypercapnia (HCC) MARCIE (generalized anxiety disorder) Generalized anxiety disorder Recurrent major depressive disorder, in partial remission (HCC) Personal history of DVT (deep vein thrombosis) Personal history of venous thrombosis and embolism Primary insomnia Persistent disorder of initiating or maintaining sleep Restless legs syndrome Restless legs syndrome (RLS) documented in this encounter Advance Directives Latest [...] the patient have Health Care Power of Warp Tension Tester? No Bag Valve Device? Yes Intubation? [...] First Alternate Health Care Agent Care Teams Audio Visual Equipment Rental Clerk Relationship Specialty Start Date End Date Marcos Maurice PA-C [address] [facility] [place] [phone] PCP - General Physician Crossing Guard 11/22/23 documented as of this encounter
--- OUTSIDE RECORDS SUMMARY | 2024-04-14 13:00 | External Medical Summary | Summary of Care ---
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 And Receiving Material Handler Name Role Phone Marcos Maurice PA-C Primary Care Provide r Reason for Visit * Reason Comments Pulmonary Function Test Encounter Details Date Type Department Care Team (Late st Contact Info) Description 01/14/2024 2:30 PM EST PulmDiagnostic Pulmonary Function Lab, [facility] [address] [place] [address] [facility], Pulm Function Room 1 [address] [place] [address] COPD, severe (HCC)* Allergies Active Allergy Reactions Criticality Noted [...] MG Oral Tablet (Crestor)Indications: Cor pulmonale, chronic ([facility]),COPD, group D, by GOLD 2017 classification ([facility]),Hypertensive heart and kidney disease with chronic diastolic congestive heart failure and stage 3a chronic kidney disease ([facility]),Dyslipidemia,Es sential hypertension with goal blood pressure less than 140/90 Take by mouth 1 Tablet in the morning. 90 Tablet 3 09/22/2022 Active Empagliflozin 10 MG Oral Tablet (Jardiance)Indication s:Type 2 diabetes mellitus with stage 3a chronic kidney disease, without long-term current use of insulin ([facility]) Take 1 Tablet by mouth in the morning. 30 Tablet 11 11/22/2022 Active metFORMIN HCl 1000 MG Oral Tablet (Glucophage)Indicatio ns:Type 2 diabetes mellitus with stage 3a chronic kidney disease, without long-term current use of insulin ([facility]) Take 1 Tablet by mouth 2 times a day with morning and evening meals. 60 Tablet 5 11/22/2022 Active Azelastine HCl 0.1 % Nasal Solution (Astelin) Administer 1 [place] into nostril in the morning and 1 [place] before bedtime. 30 mL 12 01/12/2023 Active Furosemide 80 MG Oral Tablet (Lasix)Indications:Ge neralized osteoarthritis,Chroni c diastolic heart failure ([facility]) Take 1 Tablet by mouth in [...] s:COPD, group D, by GOLD 2017 classification ([facility]) Inhale 1 Vial via nebulizer every [...] - TRES o Class D - Inhaled Gvistvgcbatqaz-YKMC-DCCW Combination Inhaler (Trellegy) o PD-4 Inhibitor (Daliresp) [...] oximeter to monitor SpO2, advised to contact [facility] if <90% and titrate as necessary, Tobacco use disorder 04/21/2021 Last Assessment & Plan: Referral to [employer] for assistance in getting nicoderm patches covered [...] Last Assessment & Plan: 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 Educated on use. Must call [facility] when initiated so further assessment can be made documented as of this encounter (statuses as of 01/14/2024) Immunizations Name Administration Dates Next Due COVID-19 mRNA, LNP-s, No Pre serve, 2-Dose Series (Moderna) 01/28/2021 Pneumococcal Conjugate Vacci ne, 20-valent (Asdqorl51) 05/10/2022 Pneumococcal Polysaccharide PPV23 (Pneumovax) 11/17/2013 Seasonal [...] as of this encounter Progress Notes * Marcela Nicholson RRT - 01/14/2024 1:50 PM EST ABG drawn LRA on 4lpm O2. Pt tolerated well. documented in this encounter Plan of Treatment Upcoming Encounters Date Type Department Care Team (Late st Contact Info) Description 01/15/2024 2:00 PM EST Office Visit Sleep Disorders, [facility] [address] [address] Germaine Barrientos MD [address] [place] [address] 06/18/2024 7:40 AM EDT Office Visit Family [facility] [address] [place] [address] Piper Cazares DO [address] [place] [address] 07/14/2024 1:00 PM EDT PulmDiagnostic Pulmonary Function Lab, [facility] [address] [facility], [place] [address] [address], Pulm Function Room 1 [address] [place] [address] 07/14/2024 2:00 PM EDT PulmDiagnostic Pulmonary Function Lab, [facility] [address] [place] [address] [facility], Pul Function Room 2 [address] [place] [address] 07/23/2024 3:20 PM EDT Office Visit [facility] Pratibha Winter [address] [place] [phone] Chance Zimmerman MD [address] [place] [address] Health Maintenance Due Date Last Done Comments Alpha-1 Antitrypsin 1976 Diabetic Foot Exam 1976 Cologuard 2003 Sigmoidoscopy 2003 Zoster Vaccines (1 of 2) 2008 Fecal Occult Blood Test 11/17/2014 11/17/2013 Mammogram 11/27/2018 11/27/2017, 12/04/2016, 12/05/2013 Colonoscopy 09/20/2020 09/20/2010 Colorectal Cancer Screening 09/20/2020 *ADVANCE DIRECTIVE NOT ON FILE 04/29/2022 Albumin/Creatinine Ratio 02/03/2023 02/03/2022, 06/19 Depression Screening 02/20/2023 02/20/2022 COVID-19 Vaccine (2022- season) 2023 01/28/2021 DXA Scan 2023 DTaP,Tdap,and Td Vaccines (2 - Td or Tdap) 11/17/2023 11/17/2013 HbA1c 06/19/2024 12/20/2023, 08/20, 05/22/2023, Additional history exists GFR 06/22/2024 12/23/2023, 01/2024, 12/21/2023, Additional history exists DISCUSS TOBACCO CESSATION (REFER TO SMARTSET #3291) 10/15/2024 10/15/2023, 05/31/2023, 01/12/2023, Additional history exists Diabetic Eye Exam 12/10/2024 12/10/2023, , 12/10/2023, Additional history exists CKD PHOS USE SMARTSET 85745 12/19/202411/21, 09/12/2023, 05/21/2023, Additional history exists CKD HGB USE SMARTSET 52030 12/23/202412/23, 12/22/2023, 12/21/2023, Additional history exists O2 ASSESSMENT COMPLETED IN PAST YEAR FOR COPD 01/07/2025 01/07/2024 Lipid Panel 04/19/2027 04/19/2022, 12/21, 01/21/2021, Additional history exists Cervical Cancer Screening Discontinued Pap Smear Discontinued 10/10/2016, 10/21, 11/17/2013, Additional history exists Pneumococcal Vaccine: 65+ Years Completed 05/10/2022, 11/17/2013 LUNG CANCER SCREENING - USE SMARTSET 23084 Completed 09/09/2023, 05/22/2023, 12/15/2022, Additional history exists [...] of this encounter Visit Diagnoses Diagnosis COPD, severe (HCC)- Primary Chronic airway obstruction, not elsewhere classified documented in this encounter Advance Directives Latest [...] the patient have Health Care Power of Antenna Design Engineer? No Bag Valve Device? Yes Intubation? [...] File Name Relationship Healthcare Agent [facility] Martinez MEGAN Adult Child First Alternate Health Care Agent Peterlucrecia Grigsby Adult Child First Alternate Health Care Agent Jazmine Corona Adult Child First Alternate Health Care Agent Care Teams Shipping And Receiving Material Handler Relationship Specialty Start Date End Date Marcos Maurice PA-C [address] [facility] [place] [address] PCP - General Physician Fund Accounting Manager 11/22/23 documented as of this encounter
--- OUTSIDE RECORDS SUMMARY | 2024-04-14 13:00 | External Medical Summary | Summary of Care ---
Author Name Unknown Organization [facility] [address] [facility] [address] Phone [phone] Care Team Providers Care Fireman Helper Name Role Phone Marcos Maurice PA-C Primary Care Provide r Reason for Referral * Evaluate & Treat - Unlimited Visits (Within 10 days (routine)) - Pending Review Specialty Diagnoses / Procedures Referred By rFantz herrera Referred To Contact Sleep Medicine / Sleep Disorders Diagnoses COPD, severe (HCC) Marek Berger PA-C [address] [place] [address] Referral ID Status Reason Start Date Expiration Date Visits Requested Visits Authorized [id number] Pending Review Specialty Services Required 01/07/2024 2 2 Question Answer Referral Priority Within 10 days (routine) Where should this appointment be scheduled? [facility] SLEEP MED ADULT REFERRAL [place] Comments Also has COPD with chronic CO2 retention, suspected DARCY, in process of qualifying for BiPAP with ABG/noc ox. RLS complicating sleep. Reason for Visit * Reason Comments Hospital Follow-Up Encounter Details Date Type Department Care Team (Late Contact Info) Description 01/07/2024 9:00 AM EST Office Visit Pulmonary Medicine Pratibha Anguiano [address] [place] [phone] Marek [facility]-C [address] [facility] [place] [address] COPD, severe ([facility]; Chronic respiratory failure with hypoxia and hypercapnia ([facility]); Tobacco use disorder Allergies Active Allergy Reactions Criticality Noted Date Comments Cortisone Muscle pain Medium 04/09/2017 At site of shot Bee Venom Anaphylaxis High 06/25/2021 Hydrocortisone High 12/25/2021 Other reaction(s): PAIN,UNABLE TO MOVE documented as of this encounter (statuses as of 01/07/2024) Medications Medication Sig Dispensed Refills Start Date End Date Status Acetaminophen 500 MG Oral Tablet (Tylenol) Take 1 Tablet by mouth every 6 hours as needed. 0 Active oxygen IN GASIndications:COPD, group D, by GOLD 2017 classification ([facility]),Chronic hypoxemic respiratory failure ([facility]) 2 LPM at bedtime & at rest & 3 LPM with all exertion via n/c DX J 44.9 1 Each 0 07/31/2022 Active Fluticasone Propionate 50 MCG/ACT Nasal Suspension (Flonase) Administer into each nostril 2 Sprays in the morning. 15.8 mL 2 09/22/2022 Active Rosuvastatin Calcium 20 MG Oral Tablet (Crestor)Indications: Cor pulmonale, chronic ([facility]),COPD, group D, by GOLD 2017 classification ([facility]),Hypertensive heart and kidney disease with chronic diastolic congestive heart failure and stage 3a chronic kidney disease ([facility]),Dyslipidemia,Es sential hypertension with goal blood pressure less than 140/90 Take by mouth 1 Tablet in the morning. 90 Tablet 3 09/22/2022 Active Empagliflozin 10 MG Oral Tablet (Jardiance)Indication s:Type 2 diabetes mellitus with stage 3a chronic kidney disease, without long-term current use of insulin ([facility]) Take 1 Tablet by mouth in the morning. 30 Tablet 11 11/22/2022 Active metFORMIN HCl 1000 MG Oral Tablet (Glucophage)Indicatio ns:Type 2 diabetes mellitus with stage 3a chronic kidney disease, without long-term current use of insulin ([facility]) Take 1 Tablet by mouth 2 times a day with morning and evening meals. 60 Tablet 5 11/22/2022 Active Azelastine HCl 0.1 % Nasal Solution (Astelin) Administer 1 [place] into nostril in the morning and 1 [place] before bedtime. 30 mL 12 01/12/2023 Active [...] group D, by GOLD 2017 classification ([facility]) Inhale 1 Vial via nebulizer every 4 hours as needed for Wheezing or Shortness of Breath. 180 mL 11 08/02/2023 Active Cetirizine HCl 10 MG Oral CapsuleIndications:Vi ral URI with cough,Acute exacerbation of chronic obstructive pulmonary disease (COPD) ([facility]) Take 1 Capsule by mouth [...] MCG/ACT Inhalation Aerosol SolutionIndications:C OPD, severe ([facility]) Take 2 puffs every four [...] as of this encounter (statuses as of 01/07/2024) Active Problems Problem Noted Date Diagnosed Date [...] - TRES o Class D - Inhaled Lqovsspzqgdwbr-DGMM-QDCL Combination Inhaler (Trellegy) o PD-4 Inhibitor (Daliresp) [...] 04/21/2021 Last Assessment & Plan: Referral to [employer] for assistance in getting nicoderm patches covered [...] Last Assessment & Plan: Currently followed by energy engineer--not on any antihistamines currently, has follow up [...] as of this encounter (statuses as of 01/07/2024) Resolved Problems Problem Noted Date Diagnosed Date [...] - TRES o Class D - Inhaled Kencizbkgldjaw-EQLL-NCNG Combination Inhaler (Ernestollegy) o PD-4 Inhibitor (Daliresp) Self-Management plan o Prednisone 40mg daily for 5 days Rx o High frequency nebulizer treatments every 4-6 hours around the clock Exacerbation plan o Prednisone rescue kit Rescue kit given today. Educated on use. Must call [facility] when initiated so further assessment can be made documented as of this encounter (statuses as of 01/07/2024) Immunizations Name Administration Dates Next Due COVID-19 mRNA, LNP-s, No Pre serve, 2-Dose Series (Moderna) 01/28/2021 Pneumococcal Conjugate Vacci ne, 20-valent ([id number]) 05/10/2022 Pneumococcal Polysaccharide PPV23 (Pneumovax) 11/17/2013 Seasonal [...] Sign Reading Time Taken Comments Blood Pressure 124/62 01/07/2024 8:59 AM EST Pulse 78 01/07/2024 8:59 AM EST Temperature 36.4 C (97.5 F) 01/07/2024 8:59 AM ES T Respiratory Rate 24 01/07/2024 8:59 AM EST Oxygen Saturation 91% 01/07/2024 9:00 AM EST ra amb 50 ft Inhaled Oxygen Concentration - - Weight 88.9 kg (196 lb) 01/07/2024 8:59 AM EST Height 167.6 cm (5' 6") 01/07/2024 8:59 AM EST Body Mass Index 31.64 01/07/2024 8:59 AM EST documented in this encounter Functional [...] as of this encounter Progress Notes * Marek Berger PA-C - 01/07/2024 9:23 AM EST THORACIC MEDICINE Name: Edna Kebede [facility] MR #: [id number] Date: 01/07/2024 Edna Kebede is a 63 year old female with past medical history significant for very severe COPD,GERD, obesity, chronic rhinitis, tobacco use disorder, chronic diastolic HF, chronic low back pain,nocturnal hypoxia, chronic resp failure with hypoxia here for HFU. Last seen in pulmonary clinic 10/15/2023 (in office) She was admitted to [facility] from 12/19 to 12/23 due to AECOPD, acute on chronic respiratory failure. pCO2 was significantly elevated. She was treated with steroids, initially ABX but no evidence of pneumonia on imaging. Patient reports she continues to feel more SOB than normal. She is also having some stomach issues,feeling nauseated and having increased sinus congestion. She has bene using 4 L of oxygen around the clock. Denies fever, chest pain, diarrhea or vomiting. She denies cough. She is smoking about 1 cigarette per day (reports she takes her oxygen off for this). Current pulmonary (and related) medication regimen is Trelegy daily, using albuterol neb or HFA a few times per day. She is not sleeping well due to her RLS, and denies napping during the day. She is on Requip BID. REVIEW OF SYSTEMS Constitutional: denies fevers/chills, significant weight change HEENT: see HPI Pulmonary: see HPI Cardiac: denies chest pain, palpitations, see HPI for additional GI: denies n/v/d, abdominal pain, change in bowel or bladder habits, blood in stool or urine Patient Active Problem List Diagnosis Code DJD (degenerative joint disease), cervical M47.812 Generalized osteoarthritis M15.9 Vitamin D deficiency E55.9 MARCIE (generalized anxiety disorder) F41.1 Gastroesophageal reflux disease without esophagitis K21.9 Recurrent major depressive disorder, in partial remission ([facility]) F33.41 Essential hypertension with goal blood pressure less than 140/90 I10 Migraine without aura and without status migrainosus, not intractable G43.009 Chronic seasonal allergic rhinitis due to pollen J30.1 COPD exacerbation ([facility]) J44.1 Dyslipidemia E78.5 Lumbar degenerative disc disease M51.36 Chronic diastolic heart failure ([facility]) I50.32 Chronic hypoxemic respiratory failure ([facility]) J96.11 Tobacco use disorder F17.200 Pulmonary hypertension ([facility]) I27.20 Insomnia G47.00 Personal history of DVT (deep vein thrombosis) Z86.718 Personal history of pulmonary embolism Z86.711 Cor pulmonale, chronic ([facility]) I27.81 Acute on chronic respiratory failure with hypoxia and hypercapnia ([facility]) J96.21, J96.22 Type 2 diabetes mellitus with stage 3a chronic kidney disease, without long-term current use of insulin ([facility]) E11.22, N18.31 Centrilobular emphysema ([facility]) J43.2 Bilateral lower extremity edema R60.0 COPD, group D, by GOLD 2017 classification ([facility]) J44.9 Chronic respiratory failure with hypoxia and hypercapnia ([facility]) J96.11, J96.12 Chronic anticoagulation Z79.01 Acute metabolic encephalopathy G93.41 Past Surgical History: Procedure Laterality Date ABD WALL HERNIA REPAIR, LAP, REDUCIBLE CARPAL TUNNEL SURGERY Bilateral DENTAL SURGERY PROCEDURE NEC 2004 All teeth removed INJECT DX/THER SUBSTANCE INTERLAMINAR LUMBAR/SACRAL W IMAGE GUIDE Right 09/16/2019 INJECTION SPINE LUMBAR OR SACRAL performed by Fawn Vee MD at OR [facility] INJECT DX/THER SUBSTANCE INTERLAMINAR LUMBAR/SACRAL W IMAGE GUIDE N/A 09/17/2020 INJECTION SPINE LUMBAR OR SACRAL performed by Katie Plunkett MD at OR [facility] LIGATE/CUT OVIDUCT(S) LUMBAR / SACRAL EPIDURAL, ADD'L LEVEL Right 10/06/2019 INJECTION TRANSFORAMINAL EPIDURAL LUMBAR OR SACRAL ADDITIONAL performed by Fawn Vee MD at [facility] LUMBAR / SACRAL EPIDURAL, SINGLE LEVEL Right 10/06/2019 INJECTION TRANSFORAMINAL EPIDURAL LUMBAR OR SACRAL performed by Fawn Vee MD at OR [facility] REMOVE GALLBLADDER 2011 REPAIR RUPTURED ROTATOR CUFF, CHRON Bilateral Review of patient's allergies indicates: Allergen Reactions Honey Bee Venom Protein [Bee Venom] Anaphylaxis Hydrocortisone Other reaction(s): PAIN,UNABLE TO MOVE Cortisone Muscle pain At site of shot Outpatient Medications Marked as Taking for the 01/07/24 encounter (Office Visit) with Marek Berger PA-C Medication Sig Eliquis 5 MG Oral Tablet take 1 tablet by mouth every morning and at bedtime rOPINIRole HCl 2 MG Oral Tablet (Requip) Take 1 Tablet by mouth in the morning and 1 Tablet before bedtime. Sertraline HCl 100 MG Oral Tablet (Zoloft) Take 1 Tablet by mouth in the morning. traZODone HCl 100 MG Oral Tablet (Desyrel) Take 1 Tablet by mouth at bedtime. Gabapentin 600 MG Oral Tablet (Neurontin) Take 1 Tablet by mouth in the morning and 1 Tablet beforebedtime. Albuterol Sulfate HFA 108 (90 Base) MCG/ACT Inhalation Aerosol Solution Take 2 puffs every four hours as need for shortness of breath or wheezing buPROPion HCl ER (XL) 300 MG Oral Tablet Extended Release 24 Hour (Wellbutrin XL) Take 1 Tablet by mouth in the morning. Melatonin 3 MG Oral Tablet Take 1 Tablet by mouth at bedtime. Cetirizine HCl 10 MG Oral Capsule Take 1 Capsule by mouth at bedtime. Albuterol Sulfate (2.5 MG/3ML) 0.083% Inhalation Nebulization Solution (Proventil) Inhale 1 Vial via nebulizer every 4 hours as needed for Wheezing or Shortness of Breath. Vitamin D3 50 MCG (2000 UT) Oral Capsule Take 1 Capsule by mouth in the morning. Trelegy Ellipta 100-62.5-25 MCG/ACT Aerosol Powder Breath Activated (Fvztjlotsvn-Ewsvyfenbhpu-Clxxszwxgl) Inhale 1 Puff by mouth in the morning. Potassium Chloride 20 MEQ Oral Packet Take 20 mEq by mouth in the morning. Furosemide 80 MG Oral Tablet (Lasix) Take 1 Tablet by mouth in the morning and 1 Tablet before bedtime. Azelastine HCl 0.1 % Nasal Solution (Astelin) Administer 1 [place] into nostril in the morning and 1 [place] before bedtime. Empagliflozin 10 MG Oral Tablet (Jardiance) Take 1 Tablet by mouth in the morning. metFORMIN HCl 1000 MG Oral Tablet (Glucophage) Take 1 Tablet by mouth 2 times a day with morning and evening meals. Fluticasone Propionate 50 MCG/ACT Nasal Suspension (Flonase) Administer into each nostril 2 Sprays in the morning. Rosuvastatin Calcium 20 MG Oral Tablet (Crestor) Take by mouth 1 Tablet in the morning. oxygen IN GAS 2 LPM at bedtime & at rest & 3 LPM with all exertion via n/c DX J 44.9 Acetaminophen 500 MG Oral Tablet (Tylenol) Take 1 Tablet by mouth every 6 hours as needed. Current Facility-Administered Medications for the 01/07/24 encounter (Office Visit) with Marek Berger PA-C Medication Albuterol Sulfate (Proventil) (5 MG/ML) 0.5% *conc* inhalation solution 2.5 mg Family History Problem Relation Age of Onset Alcohol and Other Disorders Associated Mother Emphysema Mother No Known Problems Father Hyperlipidemia Sister Arthritis Sister Hyperlipidemia Sister Immunodeficiency Daughter On gammaglobulin replacement therapy No Known Problems Brother (Half) No Known Problems Sister (Half) Suicide attempts Sister (Half) 30 Social History Tobacco Use Smoking status: Some Days Current packs/day: 0.00 Average packs/day: 1 pack/day for 50.0 years (50.0 ttl pk-yrs) Types: Cigarettes Start date: 11/28/1973 Last attempt to quit: 11/28/2023 Years since quittin.1 Passive exposure: Past Smokeless tobacco: Never Substance Use Topics Alcohol use: No Vaping/E-Cigarette Use Vaping/E-Cigarette Use Never User Vaping/E-Cigarette Substances Nicotine No Other No Flavoring No Cannabidiol (CBD) No Vaping/E-Cigarette Devices Disposable No Pre-filled or Refillable Cartridge No Refillable Tank No Pre-filled Pod No PHYSICAL EXAM BP 124/62 | Pulse 78 | Temp 36.4 C (97.5 F) (Infrared ) | Resp 24 | Ht 1.676 m (5' 6") | Wt 88.9 kg (196 lb) | SpO2 91% Comment: ra amb 50 ft | BMI 31.64 kg/m | BSA 2.03 m Gen: no acute distress, cooperative Eyes: SHEREE, EOMI, conjunctivae normal. Lungs: Resps regular and unlabored. Lungs extremely diminished BL with soft exp wheeze in L midlung. Cor: Regular rate and rhythm, S1 S2, no murmur, gallop. Ext: No edema, +2 radial pulses equal and bilateral, no cyanosis or clubbing. <3 secs cap refill. Skin: No rashes seen. Neuro: alert, interactive, without focal motor defects. DATA: (Obtained/Modified from prior OV note) Results were reviewed and discussed with patient. Component Latest Ref Rng 12/19/2023 Temperature C 37.0 Temperature 37.0 pH, Arterial 7.350 - 7.450 units 7.416 pCO2, Arterial 35.0 - 45.0 mmHg 62.1 (HH) pO2, Arterial 75.0 - 100.0 mmHg 78.9 Base Excess, Arterial -2.0 - 2.0 mmol/L 13.0 (H) Hemoglobin, Whole Blood 12.0 - 15.3 g/dL 9.4 (L) Hemoglobin, Whole Blood 9.9 (L) Oxyhemoglobin, Arterial 94.0 - 99.0 % total Hgb 92.7 (L) Carboxyhemoglobin, Whole Blood <=1.5 % total Hgb 2.2 (H) Carboxyhemoglobin, Whole Blood 2.2 (H) Methemoglobin, Whole Blood <=1.5 % total Hgb 0.5 Methemoglobin, Whole Blood 0.9 Reduced Hemoglobin, Arterial 0.0 - 5.0 % total Hgb 4.6 O2 Content, Arterial 15.0 - 24.0 %vol 12.4 (L) FiO2 % 40 O2 Flow, Arterial L/min Not Provided Bicarbonate, Whole Blood 23.0 - 31.0 mmol/L 39.2 (H) Bicarbonate, Whole Blood 46.6 (H) pH, Venous 7.320 - 7.430 units 7.421 pCO2, Venous 40.0 - 60.0 mmHg 73.0 (H) pO2, Venous 25.0 - 50.0 mmHg 29.7 Base Excess, Venous -2.0 - 2.0 mmol/L 19.1 (H) Oxyhemoglobin, Venous 40.0 - 85.0 % total Hgb 45.0 Reduced Hemoglobin, Venous % total Hgb 51.9 O2 Content, Venous 7.0 - 18.0 %vol 6.3 (L) CTA Chest With Contrast Exam date and time: 12/19/2023 2:41 PM FINDINGS: Pulmonary arteries: Evaluation for pulmonary embolism is limited by bolus timing and motion degradation. No evidence of pulmonary embolism to the level of the segmental arteries. Aorta: There are mild atherosclerotic calcifications of the aorta and arch vessels. Thyroid: Visualized portions of the thyroid gland are unremarkable. Lungs: Bilateral atelectasis. Mild emphysematous changes. No evidence of suspicious pulmonary nodule or focal consolidation. Debris is identified in the trachea. Pleural spaces: No evidence of pleural effusion or pneumothorax. Heart: The heart is not abnormally enlarged. Mediastinal space: Unremarkable esophagus. Lymph nodes: No significant axillary, mediastinal, or hilar lymphadenopathy. Liver: 1 cm early enhancing hepatic lesion on series 4, image 63 is incompletely characterized but may represent a flash filling hemangioma. Bones/joints: Degenerative changes in the spine. Soft tissues: Unremarkable. IMPRESSION: Evaluation for pulmonary embolism is limited by bolus timing and motion degradation. No evidence of pulmonary embolism to the level of the segmental arteries. ASSESSMENT (J44.9) COPD, severe (HCC) (primary encounter diagnosis) Recent exacerbation with hospital admission, no acute disease on chest CT, no PE, images reviewed via PACs. Viral panel negative. Treated with steroids and azithromycin. Remains more SOB than baseline, denies any cough. Will continue current mgmt with Trelegy, MWF azithromycin (J96.11, J96.12) Chronic respiratory failure with hypoxia and hypercapnia (HCC) She is using 4 L around the clock currently, SpO2 in clinic 91%. Was qualified for BiPAP on previous admission but machine was removed due to noncompliance. She reports wanting to try to use it again, but also relates that she barely sleeps at all due to her RLS and insomnia. She does not want to be qualified for BiPAP with a PSG (I suspect she also has DARCY) because she is certain she will not sleep anyway. She is open to referral to sleep medicine for better control of her RLS. She will get ABG and noc ox on baseline 4 L to attempt to qualify for BiPAP. (F17.200) Tobacco use disorder Down to smoking 1 cig per day by her report. Complete cessation encouraged, aware not to smoke withoxygen on. PLAN: ABG and noc ox on baseline 4 L next week to qualify for BiPAP She declines sleep study Referral to sleep medicine for RLS Continue 4 L O2 around the clock Continue Trelegy daily, albuterol PRN Continue MWF azithromycin Keep working on complete smoking cessation Keep clinic appt with Dr Zimmerman in July Instructed to call office if increased SOB or signs of respiratory infection. The plan was discussed and agreed upon by the patient. I spent a total of 45 minutes coordinating, documenting, and providing care for this patient excluding time spent in the performance of separately billed services or time spent by another provider/QHP. Reviewed Plan of Care with patient and verbalized understanding. Instructed to call clinic or use "[facility]" with any questions or concerns. Marek Berger PA-C Pulmonology and Sleep Medicine [facility] documented in this encounter Nursing Notes * Yanelis Ghosh LPN - 01/07/2024 8:54 AM EST Pt here for follow up of her recent hospitalization from 12/19 to 12/23 due to AECOPD, acute on chronic respiratory failure, and tobacco use. CAT/mMRC Summary, Results are Patient Reported mMRC - (Range 0-5) CAT - (Range 0-40) CAT mMRC Results 05/31/2023 15:06 10/15/2023 14:52 01/07/2024 09:04 Modified Medical Research [place] Dyspnea Scale When do you become breathless? (4) I am too breathless to leave the house or I am breathless when dressing (4) I am too breathless to leave the house or I am breathless when dressing (4) I am too breathless to leave the house or I am breathless when dressing Total MMRC Score 4 4 4 COPD Assessment Test (CAT) How frequently do you cough? (2) (1) (2) Do you have phlegm in your chest? (1) (0) - I have no phlegm (mucus) in my chest (0) - I have no phlegm (mucus) in my chest Is your chest tight? (0) - My chest does not feel tight at all (0) - My chest does not feel tight at all (0) - My chest does not feel tight at all How breathless do you become when walking up a hill or steps? (5) - When I walk up a hill or one flight of stairs I am very breathless (5) - When I walk up a hill or one flight of stairs I am very breathless (5) - When I walk up a hill or one flight of stairs I am very breathless How limited are you doing activities at home? (5) - I am very limited doing activities at home (5) - I am very limited doing activities at home (5) - I am very limited doing activities at home How confident are you leaving home with your lung condition? (3) (5) - I am not at all confident leaving my home because of my lung condition (5) - I am not at all confident leaving my home because of my lung condition How soundly do you sleep? (0) - I sleep soundly (0) - I sleep soundly (4) How much energy do you have? (3) (5) - I have no energy at all (3) Total CAT Score 19 21 24 Interm History/Respiratory Symptoms Cough: Yes, but she has not been able to cough up any phlegm since her discharge. Hemoptysis: None Sinus Symptoms: Drainage and congestion Hospitalizations: Yes as above ED Trips: 12/19 admitted Triggers: Exertion, pollen, dust, perfume, and smoke Nocturnal: Shortness of breath and trouble sleeping CPAP/BiPAP/O2: Oxygen continous Flu Vaccine: 08/2023 Pneumovax: 2013 Prevnar 20: 2022 COVID 19: Just one dose documented in this encounter Plan of Treatment Upcoming Encounters Date Type Department Care Team (Late st Contact Info) Description 01/14/2024 1:30 PM EST PulmDiagnostic Pulmonary Function Lab, [facility] [address] [facility] [place] [address] [place], Pulm Function Room 1 [address] [facility] [place], [place] [id number] 01/14/2024 2:30 PM EST PulmDiagnostic Pulmonary Function Lab, [address] [address] [address], Pulm Function Room [address] [place] [address] [place] [address] 01/15/2024 2:00 PM EST Office Visit Sleep Disorders, [address] [place] [address] Germaine Barrientos MD [address] [facility] [address] 06/18/2024 7:40 AM EDT Office Visit [facility], [place] [place] [address] Piper Cazares DO [address] [place] [address] 07/14/2024 1:00 PM EDT PulmDiagnostic Pulmonary Function Lab, [address] [address] [facility], Pulm Function Room [address] [place] [address] [place] [address] 07/14/2024 2:00 PM EDT PulmDiagnostic Pulmonary Function Lab, [address] [address] [facility], Pulm Function Room [address] [place], [place] [address] [address] 07/23/2024 3:20 PM EDT [facility] [address] [phone] Chance Zimmerman MD [address] [address] Scheduled Orders Name Type Priority Associated Diagnoses Orde r Schedule BLOOD GAS, ARTERIAL Lab Routine COPD, severe (HCC) Expected: 01/07/2024, Expires: 01/07/2025 NOCTURNAL HOME OXIMETRY (OP) Procedures Routine COPD, severe (HCC) Expected: 01/14/2024, Expires: 02/04/2025 Scheduled Referrals Name Type Priority Associated Diagnoses Orde r Schedule SLEEP MEDICINE REFERRAL OP Referral Within 10 days (routine) COPD, severe (HCC) Ordered: 01/07/2024 Health Maintenance Due Date Last Done Comments [...] exists DISCUSS TOBACCO CESSATION (REFER TO SMARTSET #[id number]) 10/15/2024 10/15/2023, 05/31/2023, 01/12/2023, Additional history exists Diabetic Eye Exam 12/10/2024 12/10/2023, , 12/10/2023, Additional history exists CKD PHOS USE SMARTSET 52599 12/19/202411/21, 09/12/2023, 05/21/2023, Additional history exists CKD HGB USE SMARTSET 30284 12/23/202412/23, 12/22/2023, 12/21/2023, Additional history exists O2 ASSESSMENT COMPLETED IN PAST YEAR FOR COPD 01/02/2025 01/02/2024 Lipid Panel 04/19/2027 04/19/2022, 12/21, 01/21/2021, Additional history exists Cervical Cancer Screening Discontinued Pap Smear Discontinued 10/10/2016, 10/21, 11/17/2013, Additional history exists Pneumococcal Vaccine: 65+ Years Completed 05/10/2022, 11/17/2013 LUNG CANCER SCREENING - USE SMARTSET 34539 Completed 09/09/2023, 05/22/2023, 12/15/2022, Additional history exists [...] Primary Chronic airway obstruction, not elsewhere classified Chronic respiratory failure with hypoxia and hypercapnia (HCC) Tobacco use disorder documented in this encounter [...] the patient have Health Care Power of Specimen Boss? No Bag Valve Device? Yes Intubation? No [...] First Alternate Health Care Agent Care Teams Fireman Helper Relationship Specialty Start Date End Date Marcos Maurice PA-C [address] [place] [address] PCP - General Physician Restaurant Busser 11/22/23 documented as of this encounter
--- OUTSIDE RECORDS SUMMARY | 2024-04-14 13:00 | External Medical Summary | Summary of Care ---
Author Name Unknown Organization [facility] Address [address] [place] [address] Phone [phone] Care Team Providers Care Hand Slitter Name Role Phone Marcos Maurice PA-C Primary Care Provide r Reason for Visit * Reason Onset Date Comments Home Health 01/11/2024 Encounter Details Date Type Department Care Team (Late st Contact Info) Description 01/11/2024 Telephone Family Practice [place] Osei Dasilva [address] [place] [address] Marcos Maurice PA-C [address] [facility] [place] [address] Home Health Allergies [...] MG Oral Tablet (Crestor)Indications: Cor pulmonale, chronic ([facility]),COPD, group D, by GOLD 2017 classification ([facility]),Hypertensive heart and kidney disease with chronic diastolic congestive heart failure and stage 3a chronic kidney disease ([facility]),Dyslipidemia,Es sential hypertension with goal blood pressure less than 140/90 Take by mouth 1 Tablet in the morning. 90 Tablet 3 09/22/2022 Active Empagliflozin 10 MG Oral Tablet (Jardiance)Indication s:Type 2 diabetes mellitus with stage 3a chronic kidney disease, without long-term current use of insulin ([facility]) Take 1 Tablet by mouth in the morning. 30 Tablet 11 11/22/2022 Active metFORMIN HCl 1000 MG Oral Tablet (Glucophage)Indicatio ns:Type 2 diabetes mellitus with stage 3a chronic kidney disease, without long-term current use of insulin ([facility]) Take 1 Tablet by mouth 2 times a day with morning and evening meals. 60 Tablet 5 11/22/2022 Active Azelastine HCl 0.1 % Nasal Solution (Astelin) Administer 1 [place] into nostril in the morning and 1 [place] before bedtime. 30 mL 12 01/12/2023 Active Furosemide 80 MG Oral Tablet (Lasix)Indications:Ge neralized osteoarthritis,Chroni c diastolic heart failure ([facility]) Take 1 Tablet by mouth [...] s:COPD, group D, by GOLD 2017 classification ([facility]) Inhale 1 Vial via nebulizer every 4 hours as needed for Wheezing or Shortness of Breath. 180 mL 11 08/02/2023 Active Cetirizine HCl 10 MG Oral CapsuleIndications:Vi ral URI with cough,Acute exacerbation of chronic obstructive pulmonary disease (COPD) ([facility]) Take 1 Capsule by mouth at bedtime. 90 Capsule 3 08/21/2023 Active Melatonin 3 MG Oral Tablet Take 1 Tablet by mouth at bedtime. 30 Tablet 1 09/17/2023 Active buPROPion HCl ER (XL) 300 MG Oral Tablet Extended Release 24 Hour (Wellbutrin XL)Indications:MDD (major depressive disorder), recurrent episode, mild ([facility]) Take 1 Tablet by mouth in the morning. 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 Educated on use. Must call [facility] when initiated so further assessment can be made documented as of this encounter (statuses as of 01/14/2024) Immunizations Name Administration Dates Next Due COVID-19 mRNA, LNP-s, No Pre serve, 2-Dose Series (Moderna) 01/28/2021 Pneumococcal Conjugate Vacci ne, 20-valent ([id number]) 05/10/2022 Pneumococcal Polysaccharide PPV23 (Pneumovax) 11/17/2013 Seasonal [...] - 01/11/2024 3:39 PM EST HH Concerns SAGE Saenz, Calling from: [facility] Report/Concerns of: SOB Symptoms: sob- exertion [...] 2:00 PM EST Office Visit Sleep Disorders, [facility] [address] [address] Germaine Barrientos MD [address] [address] 06/18/2024 7:40 AM EDT Office Visit [facility] Osei Dasilva [address] [place] [address] Piper Cazares DO [address] [place] [address] 07/14/2024 1:00 PM EDT PulmDiagnostic Pulmonary Function Lab, [facility] [address] [phone] [facility], Pulm Function Room [address] [place] [address] 07/14/2024 2:00 PM EDT PulmDiagnostic Pulmonary Function Lab, [facility] [address] [place] [address] [facility], Pulm Function Room [address] [place] [address] 07/23/2024 3:20 PM EDT Office Visit Pulmonary Medicine [place] [address] [place] [phone] Chance Zimmerman MD [address] [place] [address] Health Maintenance Due Date Last Done Comments [...] Additional history exists CKD PHOS USE SMARTSET 23795 12/19/202411/21, 09/12/2023, 05/21/2023, Additional history exists CKD HGB USE SMARTSET 85971 12/23/202412/23, 12/22/2023, 12/21/2023, Additional history exists O2 ASSESSMENT COMPLETED IN PAST YEAR FOR COPD 01/07/2025 01/07/2024 Lipid Panel 04/19/2027 04/19/2022, 12/21, 01/21/2021, Additional history exists Cervical Cancer Screening Discontinued Pap Smear Discontinued 10/10/2016, 10/21, 11/17/2013, Additional history exists Pneumococcal Vaccine: 65+ Years Completed 05/10/2022, 11/17/2013 LUNG CANCER SCREENING - USE SMARTSET 45943 Completed 09/09/2023, 05/22/2023, 12/15/2022, Additional history exists [...] the patient have Health Care Power of Signal Intelligence Analyst? No Bag Valve Device? Yes Intubation? [...] First Alternate Health Care Agent Care Teams Hand Slitter Relationship Specialty Start Date End Date Marcos Maurice PA-C [address] [facility] [place] [address] PCP - General Physician Fine Grade Operator 11/22/23 documented as of this encounter
--- OUTSIDE RECORDS SUMMARY | 2024-04-14 13:00 | External Medical Summary | Summary of Care ---
Author Name Unknown Organization [facility] Address [address] [place] [address] Phone [phone] Care Team Providers Care Rv Repairer Name Role Phone Marcos Maurice PA-C Primary Care Provide r Reason for Visit * Reason Onset Date Comments Home Health 12/24/2023 Encounter Details Date Type Department Care Team (Late st Contact Info) Description 12/24/2023 Telephone Family Practice [place]sei Dasilva [address] [place] [address] Marcos Maurice PA-C [address] [facility] [place] [address] Home Health Allergies Active Allergy Reactions Criticality Noted Date Comments Cortisone Muscle pain Medium 04/09/2017 At site of shot Bee Venom Anaphylaxis High 06/25/2021 Hydrocortisone High 12/25/2021 Other reaction(s): PAIN,UNABLE TO MOVE documented as of this encounter (statuses as of 12/26/2023) Medications Medication Sig Dispensed Refills Start Date [...] Tablet (Requip)Indications: Primary insomnia,Restless legs syndrome Take by mouth 1 Tablet in the morning AND 1 Tablet before bedtime. 60 Tablet 5 09/22/2022 Active Rosuvastatin Calcium 20 MG Oral Tablet (Crestor)Indications :Cor pulmonale, chronic ([facility]),COPD, group D, by GOLD 2017 classification ([facility]),Hypertensive heart and kidney disease with chronic diastolic congestive heart failure and stage 3a chronic kidney disease ([facility]),Dyslipidemia,E ssential hypertension with goal blood [...] without long-term current use of insulin (HCC) Take 1 Tablet by mouth in the morning. 30 Tablet 11/22/2022 Active metFORMIN HCl 1000 MG Oral Tablet (Glucophage)Indicati ons:Type 2 diabetes mellitus with stage 3a chronic kidney disease, without long-term current use of insulin (HCC) Take 1 Tablet by mouth 2 times a day with morning and evening meals. 60 Tablet 5 11/22/2022 Active Azelastine HCl 0.1 % Nasal Solution (Astelin) Administer 1 [place] into nostril in the morning and 1 [place] before bedtime. 30 mL 12 01/12/2023 Active Gabapentin 600 MG Oral Tablet (Neurontin)Indicatio ns:Generalized osteoarthritis Take 1 Tablet by mouth in the morning and 1 Tablet before bedtime. 180 Tablet 3 03/26/2023 Active Furosemide 80 MG Oral Tablet (Lasix)Indications:G [...] 1 06/21/2023 Active Eliquis 5 MG Oral TabletIndications:Pe rsonal history of DVT (deep vein thrombosis) take 1 tablet by mouth every morning and at bedtime 60 Tablet 3 07/07/2023 Active Albuterol Sulfate (2.5 MG/3ML) 0.083% Inhalation Nebulization Solution (Proventil)Indicatio ns:COPD, group D, by GOLD 2017 classification ([facility]) Inhale 1 Vial via nebulizer every 4 hours as needed for Wheezing or Shortness of Breath. 180 mL 11 08/02/2023 Active Escitalopram Oxalate 20 MG Oral Tablet (Lexapro)Indications :MARCIE (generalized anxiety disorder) Take 1 Tablet by mouth in the morning. In the morning.. 90 Tablet 1 08/21/2023 Active Cetirizine HCl 10 MG Oral CapsuleIndications:V [...] for 10 days. 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 Educated on use. Must call [facility] when initiated so further assessment can be made documented as of this encounter (statuses as of 12/26/2023) Immunizations Name Administration Dates Next Due COVID-19 mRNA, LNP-s, No Pre serve, 2-Dose Series (Moderna) 01/28/2021 Pneumococcal Conjugate Vacci ne, 20-valent ([id number]) 05/10/2022 Pneumococcal Polysaccharide PPV23 (Pneumovax) 11/17/2013 Seasonal [...] encounter Miscellaneous Notes * Telephone Encounter - Uma Marrero LPN - 12/25/2023 3:38 PM EST Driss (registered nurse) from [facility] HH calling to make sure that Dr. Cazares will sign Resumption of care orders for patient Last office visit - 11/22/2023 Next office visit - 01/02/[address] Cazares will sign orders Asked that confirmation be faxed to [phone] Faxed with confirmation received * Telephone Encounter - Judie Stern OSA - 12/25/2023 12:29 PM EST HD scheduled 01/02 * Telephone Encounter - Amaris Hackett LPN - 12/24/2023 9:29 AM EST HH Resumption of Care. SAGE Tovar, Calling from: [facility] Patient was Admitted to: [facility], for: Acute on Chronic Respiratory Failure from 12/19/23 to 12/23/23 Pt was seeing residential before going back to [facility] on 12/19/23 Planned resumption start of care date: Yes, sometime this week. They will call with any updates or additional concerns from the upcoming HH visit. Last Office Visit: 11/22/2023 Has patient been scheduled or seen in the office for a follow up visit: Needs contacted to schedulefollow up Advised that orders will be signed by Dr. Cazares once the pt schedules hospital f/u. Please fax orders for resumption of care to [phone]. * Telephone Encounter - Krysta Macias OSA - 12/24/2023 9:25 AM EST Reason for patient's call: requesting to speak to nurse for resumption of care after hospitalization service order dispatcher was transferred to [facility] at the nurse line. documented in this encounter Plan of Treatment Upcoming Encounters Date Type Department Care Team (Late st Contact Info) Description 01/02/2024 11:00 AM EST Office Visit [facility] Osei Dasilva [address] [place] [address] Piper Cazares, [address] [place] [address] 01/07/2024 9:00 AM EST Office Visit Pulmonary Medicine Pratibha Anguiano [address] [place] [phone] Marek Berger PA-C [address] [facility] [place] [address] 06/18/2024 7:40 AM EDT Office Visit [facility] Osei Dasilva [address] [place] [address] Piper Cazares, DO [address] [place] [address] 07/14/2024 1:00 PM EDT PulmDiagnostic Pulmonary Function Lab, [facility] [address] [facility] [place] [address] [facility], Pulm Function Room 1 [address] [facility] [place] [address] 07/14/2024 2:00 PM EDT PulmDiagnostic Pulmonary Function Lab, [facility] [address] [facility] [place] [address] [facility], Pulm Function [facility] [address] [facility] [address] [address] 07/23/2024 3:20 PM EDT Office Visit Pulmonary Medicine Pratibha Anguiano [address] [place] [phone] Chance Zimmerman MD [address] [place] [address] Health Maintenance Due Date Last Done Comments [...] 06/22/2024 12/23/2023, 01/2024, 12/21/2023, Additional history exists Diabetic Eye Exam 12/10/2024 12/10/2023, , 12/10/2023, Additional history exists CKD PHOS USE SMARTSET 21474 12/19/202411/21, 09/12/2023, 05/21/2023, Additional history exists CKD HGB USE SMARTSET 08786 12/23/202412/23, 12/22/2023, 12/21/2023, Additional history exists O2 ASSESSMENT COMPLETED IN PAST YEAR FOR COPD 12/23/2024 12/23/2023 Lipid Panel 04/19/2027 04/19/2022, 12/21, 01/21/2021, Additional history exists Cervical Cancer Screening Discontinued Pap Smear Discontinued 10/10/2016, 10/21, 11/17/2013, Additional history exists Pneumococcal Vaccine: 65+ Years Completed 05/10/2022, 11/17/2013 LUNG CANCER SCREENING - USE SMARTSET 83270 Completed 09/09/2023, 05/22/2023, 12/15/2022, Additional history exists [...] the patient have Health Care Power of Die Equipment Operator? No Bag Valve Device? Yes Intubation? [...] First Alternate Health Care Agent Care Teams Rv Repairer Relationship Specialty Start Date End Date Marcos Maurice PA-C [address] [facility] [place] [address] PCP - General Physician Painter Chassis 11/22/23 documented as of this encounter
--- OUTSIDE RECORDS SUMMARY | 2024-04-14 13:00 | External Medical Summary ---
Author Name Unknown Address Unknown Organization [facility] [address] [facility] [place] [address] Laboratory Report Ordering Provider Test Date Status JANNIE MORTENSEN 01/14/2024 13:42:45 Final Day after nocturnal oximetry , draw on baseline oxygen (4L) Observation Date Value Abnormality Reference (Units ) Status Body temperature 01/14/2024 13:42:45 37.0 (C) Final pH of Arterial blood 01/14/2024 13:42:45 7.421 7.350-7.450 (units) Final Carbon dioxide [Partial pressure] in Arterial blood 01/14/2024 13:42:45 51.2 Above high normal 35.0-45.0 (mmHg) Final Oxygen [Partial pressure] in Arterial blood 01/14/2024 13:42:45 72.9 Below low normal 75.0-100.0 (mmHg) Final Base excess, Arterial 01/14/2024 13:42:45 7.4 Above high normal -2.0-2.0 (mmol/L) Final Hemoglobin [Mass/volume] in Blood by Oximetry 01/14/2024 13:42:45 11.2 Below low normal 12.0-15.3 (g/dL) Final Oxyhemoglobin, Arterial (FO2HB) 01/14/2024 13:42:45 90.3 Below low normal 94.0-99.0 (% total Hgb) Final Carboxyhemoglobin 01/14/2024 13:42:45 4.7 Above high normal <=1.5 (% total Hgb) Final Smokers: 0-9.0 % Methemoglobin 01/14/2024 13:42:45 0.7 <=1.5 (% total Hgb) Final Deoxyhemoglobin/Hemog lobin.total in Arterial blood 01/14/2024 13:42:45 4.3 0.0-5.0 (% total Hgb) Final Oxygen content in Arterial blood 01/14/2024 13:42:45 14.3 Below low normal 15.0-24.0 (%vol) Final Oxygen/Total gas setting [Volume Fraction] Ventilator 01/14/2024 13:42:45 Not Provided (%) Final O2 FLOW, [facility] - [facility] 01/14/2024 13:42:45 4L (L/min) Final nasal cannula Bicarbonate, Venous, POC (i-STAT) 01/14/2024 13:42:45 32.6 Above high normal 23.0-31.0 (mmol/L) Final Performing Location [facility] [address] [facility] [place] [address]
--- OUTSIDE RECORDS SUMMARY | 2024-04-14 13:00 | External Medical Summary | Summary of Care ---
Author Name Unknown Organization [facility] Address [address] [place] [address] Phone [phone] Care Team Providers Care Image Assembler Name Role Phone JosafatMarcos Javi MENON Primary Care Provide r Reason for Visit * Reason Onset Date Comments Hospital Follow-Up 12/26/2023 COPD Proven C are Encounter Details Date Type Department Care Team (Late st Contact Info) Description 12/26/2023 Telephone Pulmonary Function Lab, [facility] [address] [place] [address] Debra Larsen, [facility] Hospital Follow-Up (COPD [facility]ven [facility] ) Allergies [...] MG Oral Tablet (Crestor)Indications :Cor pulmonale, chronic ([facility]),COPD, group D, by GOLD 2017 classification ([facility]),Hypertensive heart and kidney disease with chronic diastolic congestive heart failure and stage 3a chronic kidney disease ([facility]),Dyslipidemia,E ssential hypertension with goal [...] without long-term current use of insulin ([facility]) Take 1 Tablet by mouth 2 times a day with morning and evening meals. 60 Tablet 5 11/22/2022 Active Azelastine HCl 0.1 % Nasal Solution (Astelin) Administer 1 [place] into nostril in the morning and 1 [place] before bedtime. 30 mL 01/12/2023 Active Gabapentin 600 MG Oral Tablet (Neurontin)Indicatio ns:Generalized osteoarthritis Take 1 Tablet by mouth in the morning and 1 Tablet before bedtime. 180 Tablet 3 03/26/2023 Active Furosemide 80 MG Oral Tablet (Lasix)Indications:G eneralized osteoarthritis,Chron ic diastolic heart failure (HCC) Take 1 Tablet by mouth in the morning and 1 Tablet before bedtime. 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 Educated on use. Must call [facility] when initiated so further assessment can be made documented as of this encounter (statuses as of 12/26/2023) Immunizations Name Administration Dates Next Due COVID-19 mRNA, LNP-s, No Pre serve, 2-Dose Series (Moderna) 01/28/2021 Pneumococcal Conjugate Vacci ne, 20-valent ([id number]) 05/10/2022 Pneumococcal Polysaccharide PPV23 (Pneumovax) 11/17/2013 Seasonal [...] Notes * Telephone Encounter - Debra Larsen, THEATRICAL PERFORMER - 12/26/2023 4:16 PM EST Post Discharge Follow-Up Phone Call Patient Name: Edna Kebede Discharge Date: 12/23/23 Date of Call: 12/26/2023 Time of Call: 4:16 PM Patient successfully contacted? Yes Symptoms/Exposure How is your breathing post hospitalization? better Sputum: Color white - using flutter valve every hour - encouraged to continue use 3-4 x's daily even after feeling better- pt also using NAC - just started today- she is aware to take BID Sputum Volume: Decrease Shortness of Breath: Decrease Cough: Decrease Fatigue: Decrease Baseline Symptoms: sob with exertion Comorbid Conditions: CHF, PHTN, DM, obesity Exposures to irritants (mold, dust, debris, chemicals, pets, etc.): no Triggers: weather Readmission Screening Readmission within 30 days?: No Vaccine History Immunization History Administered Date(s) Administered COVID-19 mRNA, LNP-s, No Preserve, 2-Dose Series (Moderna) 01/28/2021 Pneumococcal Conjugate Vaccine, 20-valent ([id number]) 05/10/2022 Pneumococcal Polysaccharide PPV23 (Pneumovax) 11/17/2013 Seasonal Influenza, PF, 6 M & above, IM , (FluLaval or Fluzone) 11/20/2017, 09/10/2019 Seasonal Influenza, Quadrivalent Hd (Fluzone Hd) 09/13/2023 Seasonal Influenza, Quadrivalent, No Preserve, IM 10/10/2016 Seasonal Influenza, Split, IIV3, With Preserve, Inj 11/17/2013, 06/27/2014, 08/20/2015 TDAP (age 10 and older)(Boostrix) 11/17/2013 Post Discharge Follow-Up Next Pulmonary Appointment: 01/07/24 and Plans to attend Transportation Difficulty: No Followed by or Eligible for: [facility] Medicated Therapy Respiratory Medications/Use: Trelegy- rinsing mouth, Albuterol neb, Albuterol MDI - using albuterolneb 3-4 hours , NAC, Azithromycin M, W, F Difficulty Affording Respiratory Medications: No Oxygen Use: 02 @ 4 lpm x 24 hours DME: Bong - pt has pulse oximeter and monitors saturations Noninvasive therapy: pt has bipap previously was taken back d/t non compliance - restless legs - ptcouldn't sleep. Pt was retested with last admission but did not qualify. Ed provided on CO2 retention- Pt is willing to try bipap again if she qualifies. Activity Activity Level: ADL's / iADl's Pulmonary Rehab Program discussed Interested/Eligible for Pulmonary Rehab: pt attended [facility] @ [facility] and is willing to return when she is dc'd from Advice given to patient: Pulmonary regimen reviewed with patient. Instructed patient to call the Pulmonary Clinic when starting to notice early onset of COPD flare symptoms. Reminded patient of upcoming Pulmonary Medicine appointment. Patient verbalized understanding. Smoking education provided. Encouraged staying active. Does patient need additional follow up? Yes, by telephone within 30 days from 12/26/2023 Debra Larsen CRT documented in this encounter Plan of Treatment Upcoming Encounters Date Type Department Care Team (Late st Contact Info) Description 01/02/2024 11:00 AM EST Office Visit [facility] [place] [address] [place] [address] Piper Cazares DO [address] [place] [address] 01/07/2024 9:00 AM EST Office Visit Pulmonary Medicine [facility] [place] [address] [address] [facility] [place] [phone] Marek Berger PA-C [address] [facility] [place] [address] 06/18/2024 7:40 AM EDT Office Visit [facility] [place] [address] [place] [address] Piper Cazares DO [address] [place] [address] 07/14/2024 1:00 PM EDT PulmDiagnostic Pulmonary Function Lab, [facility] [address] [place] [address] Glh, Pulm Function Room 1 [address] [place] [address] 07/14/2024 2:00 PM EDT PulmDiagnostic Pulmonary Function Lab, [facility] [address] [place] [address] Gl, Pulm Function Room 2 [address] [place] [address] 07/23/2024 3:20 PM EDT Office Visit Pulmonary Medicine [place] [address] [place] [phone] Chance Zimmerman MD [address] [place] [address] Health Maintenance Due Date Last Done Comments Alpha-1 Antitrypsin 1976 Diabetic Foot Exam 1976 Cologuard 2003 Sigmoidoscopy 2003 Zoster Vaccines (1 of 2) 2008 Fecal Occult Blood Test 11/17/2014 11/17/2013 Hepatitis B (1 of 3 - Risk 3-dose series) 2018 Mammogram 11/27/2018 11/27/2017, 12/04/2016, 12/05/2013 Colonoscopy 09/20/2020 [...] Additional history exists CKD PHOS USE SMARTSET 08979 12/19/202411/21, 09/12/2023, 05/21/2023, Additional history exists CKD HGB USE SMARTSET 91814 12/23/202412/23, 12/22/2023, 12/21/2023, Additional history exists O2 ASSESSMENT COMPLETED IN PAST YEAR FOR COPD 12/23/2024 12/23/2023 Lipid Panel 04/19/2027 04/19/2022, 12/21, 01/21/2021, Additional history exists Cervical Cancer Screening Discontinued Pap Smear Discontinued 10/10/2016, 10/21, 11/17/2013, Additional history exists Pneumococcal Vaccine: 65+ Years Completed 05/10/2022, 11/17/2013 LUNG CANCER SCREENING - USE SMARTSET 69148 Completed 09/09/2023, 05/22/2023, 12/15/2022, Additional history exists [...] the patient have Health Care Power of Clinical Rehabilitation Liaison? No Bag Valve Device? Yes Intubation? No [...] First Alternate Health Care Agent Care Teams Image Assembler Relationship Specialty Start Date End Date Marcos Maurice PA-C [address] [facility] [place] [address] PCP - General Physician Webfocus Developer 11/22/23 documented as of this encounter
--- OUTSIDE RECORDS SUMMARY | 2024-04-14 13:00 | External Medical Summary | Summary of Care ---
Author Name Unknown Organization [facility] Address [address] [place] [address] Phone [phone] Care Team Providers Care Stage Director Name Role Phone Marcos Maurice PA-C Primary Care Provide r Reason for Visit * Reason Comments Pulmonary Function Test Encounter Details Date Type Department Care Team (Late st Contact Info) Description 01/14/2024 1:30 PM EST PulmDiagnostic Pulmonary Function Lab, [facility] [address] [place] [address] [facility], Pulm Function Room 1 [address] [place] [address] COPD, severe (HCC)* Allergies Active Allergy Reactions [...] 0.1 % Nasal Solution (Astelin) Administer 1 [place] into nostril in the morning and 1 [place] before bedtime. 30 mL 12 01/12/2023 Active [...] - TRES o Class D - Inhaled Axqrwloxoeyhwz-HLKQ-QRDP Combination Inhaler (Trellegy) o PD-4 Inhibitor (Daliresp) [...] oximeter to monitor SpO2, advised to contact [facility] if <90% and titrate as necessary, Tobacco use disorder 04/21/2021 Last Assessment & Plan: Referral to [employer] for assistance in getting nicoderm patches covered [...] Last Assessment & Plan: Currently followed by chip frier--not on any antihistamines currently, has follow up [...] - TRES o Class D - Inhaled Azgjndxirbryix-PGYH-XEGQ Combination Inhaler (Trellegy) o PD-4 Inhibitor (Daliresp) Self-Management plan o Prednisone 40mg daily for 5 days Rx o High frequency nebulizer treatments every 4-6 hours around the clock Exacerbation plan o Prednisone rescue kit Rescue kit given today. Educated on use. Must call [facility] when initiated so further assessment can be made documented as of this encounter (statuses as of 01/14/2024) Immunizations Name Administration Dates Next Due COVID-19 mRNA, LNP-s, No Pre serve, 2-Dose Series (Moderna) 01/28/2021 Pneumococcal Conjugate Vacci ne, 20-valent ([id number]) 05/10/2022 Pneumococcal Polysaccharide PPV23 (Pneumovax) 11/17/2013 Seasonal [...] Notes * Marcela Nicholson RRT - 01/14/2024 1:51 PM EST Pt instructed on use of nocturnal pulse ox on 4lpm. Pt states that she understands and has no questions at this time. documented in this encounter Plan of Treatment Upcoming Encounters Date Type Department Care Team (Late st Contact Info) Description 01/14/2024 2:30 PM EST PulmDiagnostic Pulmonary Function Lab, [facility] [address] [place] [address] [facility], Pulm Function Room 1 [address] [place] [address] COPD, severe (HCC)* 01/15/2024 2:00 PM EST Office Visit Sleep Disorders, [facility] [address] [place] [address] Germaine Barrientos MD [address] [facility] [place] [address] 06/18/2024 7:40 AM EDT Office Visit [facility] [address], [place] [address] [place] [address] Piper Cazares DO [address] [facility] [place] [address] 07/14/2024 1:00 PM EDT PulmDiagnostic Pulmonary Function Lab, [facility] [address] [facility] [address] [facility], Pulm Function Room 1 [address] [place] [address] 07/14/2024 2:00 PM EDT PulmDiagnostic Pulmonary Function Lab, [facility] [address] [facility] [place] [address] [facility], Pul Function Room 2 [address] [place] [address] 07/23/2024 3:20 PM EDT Office Visit Pulmonary Medicine [place] [address] [place] [phone] Chance Zimmerman MD [address] [place] [address] Health Maintenance Due Date Last Done Comments [...] exists DISCUSS TOBACCO CESSATION (REFER TO SMARTSET #0026) 10/15/2024 10/15/2023, 05/31/2023, 01/12/2023, Additional history exists Diabetic Eye Exam 12/10/2024 12/10/2023, , 12/10/2023, Additional history exists CKD PHOS USE SMARTSET 34389 12/19/202411/21, 09/12/2023, 05/21/2023, Additional history exists CKD HGB USE SMARTSET 12616 12/23/202412/23, 12/22/2023, 12/21/2023, Additional history exists O2 ASSESSMENT COMPLETED IN PAST YEAR FOR COPD 01/07/2025 01/07/2024 Lipid Panel 04/19/2027 04/19/2022, 12/21, 01/21/2021, Additional history exists Cervical Cancer Screening Discontinued Pap Smear Discontinued 10/10/2016, 10/21, 11/17/2013, Additional history exists Pneumococcal Vaccine: 65+ Years Completed 05/10/2022, 11/17/2013 LUNG CANCER SCREENING - USE SMARTSET 85557 Completed 09/09/2023, 05/22/2023, 12/15/2022, Additional history exists [...] Procedure Name Priority Date/Time Associated Diagnosis Comments BLOOD GAS, ARTERIAL Routine 01/14/2024 1 :42 PM EST COPD, severe (HCC) documented in this encounter Results * (ABNORMAL) BLOOD GAS, ARTERIAL (01/14/2024 1:42 PM EST) Temperature 37.0 C 01/14/2024 1:49 PM EST LAB[facility]ATORY [facility] pH, Arterial 7.421 7.350 - 7.450 units 01/14/2024 1:49 PM EST [facility] pCO2, Arterial 51.2(H) 35.0 - 45.0 mmHg 01/14/2024 1:49 PM EST [facility] pO2, Arterial 72.9(L) 75.0 - 100.0 mmHg 01/14/2024 1:49 PM EST [facility] Base Excess, Arterial 7.4(H) -2.0 - 2.0 mmol/L 01/14/2024 1:49 PM EST [facility] Hemoglobin, Whole Blood 11.2(L) 12.0 - 15.3 g/dL 01/14/2024 1:49 PM EST [facility] Oxyhemoglobin, Arterial 90.3(L) 94.0 - 99.0 % total Hgb 01/14/2024 1:49 PM EST [facility] Carboxyhemoglob in, Whole Blood 4.7(H) <=1.5 % total Hgb 01/14/2024 1:49 PM EST [facility] Comment:Smokers: 0-9.0 % Methemoglobin, Whole Blood 0.7 <=1.5 % total Hgb 01/14/2024 1:49 PM EST [facility] Reduced Hemoglobin, Arterial 4.3 0.0 - 5.0 % total Hgb 01/14/2024 1:49 PM EST [facility] O2 Content, Arterial 14.3(L) 15.0 - 24.0 %vol 01/14/2024 1:49 PM EST [facility] FiO2 Not Provided % 01/14/2024 1:49 PM EST [facility] O2 Flow, Arterial 4L L/min 01/14/2024 1:49 PM EST [facility] Comment:nasal cannula Bicarbonate, Whole Blood 32.6(H) 23.0 - 31.0 mmol/L 01/14/2024 1:49 PM EST [facility] Blood Arterial blood specimen / Unknown Arterial Puncture / Unknown 01/14/2024 1:42 PM EST 01/14/2024 1:45 PM EST Marek Berger PA-C LAB BLOOD ORDERABLES [facility] [address] [place] [address] documented in this encounter Visit Diagnoses Diagnosis COPD, severe (HCC)- Primary Chronic airway obstruction, not elsewhere classified COPD, severe (HCC)- Primary Chronic airway obstruction, [...] the patient have Health Care Power of Concrete Spreader? No Bag Valve Device? Yes Intubation? No [...] Agents on File Name Relationship Healthcare Agent [facility] p Communication Martinez GRIGSBY Adult Child First Alternate Health Care Agent Peter Grigsby Adult Child First Alternate Health Care Agent Jazmine Corona Adult Child First Alternate Health Care Agent Care Teams Stage Director Relationship Specialty Start Date End Date Marcos Maurice PA-C [address] [facility] [place] [address] PCP - General Physician Work Order Sorting Clerk 11/22/23 documented as of this encounter
--- OUTSIDE RECORDS SUMMARY | 2024-04-14 13:01 | External Medical Summary | Summary of Care ---
Author Name Unknown Organization [facility] Address [address] [place] [address] Phone [phone] Care Team Providers Care Contour Path Tape Mill Operator Name Role Phone Marcos Maurice PA-C Primary Care Provide r Reason for Visit * Reason Onset Date Comments Encounter Created in Error 12/25/2023 Encounter Details Date Type Department Care Team (Late st Contact Info) Description 12/25/2023 Telephone Family Practice [facility] [address] [place] [address] Marcos Maurice PA-C [address] [facility] [place] [place] [address] Encounter Created in Error Allergies Active Allergy Reactions Criticality Noted Date Comments Cortisone Muscle pain Medium 04/09/2017 At site of shot Bee Venom Anaphylaxis High 06/25/2021 Hydrocortisone High 12/25/2021 Other reaction(s): PAIN,UNABLE TO MOVE documented as of this encounter (statuses as of 12/25/2023) Medications Medication Sig Dispensed Refills Start Date [...] Oral Tablet (Crestor)Indications :Cor pulmonale, chronic ([facility]),COPD, group D, by GOLD 2017 classification ([facility]),Hypertensive heart and kidney disease with chronic diastolic congestive heart failure and stage 3a chronic kidney disease ([facility]),Dyslipidemia,E ssential hypertension with goal blood pressure [...] 0.1 % Nasal Solution (Astelin) Administer 1 [place] into nostril in the morning and 1 [place] before bedtime. 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 Educated on use. Must call [facility] when initiated so further assessment can be made documented as of this encounter (statuses as of 12/25/2023) Immunizations Name Administration Dates Next Due COVID-19 mRNA, LNP-s, No Pre serve, 2-Dose Series (Moderna) 01/28/2021 Pneumococcal Conjugate Vacci ne, 20-valent ([id number]) 05/10/2022 Pneumococcal Polysaccharide PPV23 (Pneumovax) 11/17/2013 Seasonal [...] Description 01/02/2024 11:00 AM EST Office Visit Family [facility] [place] [address] [facility] [place], [place] [address] Piper Cazares, DO [address] [facility] [place] [address] 01/07/2024 9:00 AM EST Office Visit Pulmonary Medicine [facility] [address] [place] [phone] Marek Berger PA-C [address] [place] [address] 06/18/2024 7:40 AM EDT Office Visit [facility] [place] [address] [facility] [place], [place] [address] Piper Cazares, DO [address] [facility] [place], [place] [address] 07/14/2024 1:00 PM EDT PulmDiagnostic Pulmonary Function Lab, [address] [place] [address] [facility], Pulm Function Room 1 [address] [place] [address] 07/14/2024 2:00 PM EDT PulmDiagnostic Pulmonary Function Lab, [facility] [address] [place] [address] [facility], Pulm Function Room 2 [address] [place] [address] 07/23/2024 3:20 PM EDT Office Visit Pulmonary Medicine [facility] [address] [place] [phone] Chance Zimmerman MD [address] [place] [address] Health Maintenance Due Date Last Done Comments [...] Additional history exists CKD PHOS USE SMARTSET 52564 12/19/202411/21, 09/12/2023, 05/21/2023, Additional history exists CKD HGB USE SMARTSET 96981 12/23/202412/23, 12/22/2023, 12/21/2023, Additional history exists O2 ASSESSMENT COMPLETED IN PAST YEAR FOR COPD 12/23/2024 12/23/2023 Lipid Panel 04/19/2027 04/19/2022, 12/21, 01/21/2021, Additional history exists Cervical Cancer Screening Discontinued Pap Smear Discontinued 10/10/2016, 10/21, 11/17/2013, Additional history exists Pneumococcal Vaccine: 65+ Years Completed 05/10/2022, 11/17/2013 LUNG CANCER SCREENING - USE SMARTSET 79211 Completed 09/09/2023, 05/22/2023, 12/15/2022, Additional history exists [...] the patient have Health Care Power of Line Person? No Bag Valve Device? Yes Intubation? [...] Agents on File Name Relationship Healthcare Agent [facility] p Communication Martinez GRIGSBY Adult Child First Alternate Health Care Agent Peter Seb Adult Child First Alternate Health Care Agent Jazmine Corona Adult Child First Alternate Health Care Agent Care Teams Contour Path Tape Mill Operator Relationship Specialty Start Date End Date Marcos Maurice PA-C [facility] [facility] [place] [phone] PCP - General Physician Ventilation Worker 11/22/23 documented as of this encounter
--- OUTSIDE RECORDS SUMMARY | 2024-04-14 13:01 | External Medical Summary | Summary of Care ---
Author Name Unknown Organization [facility] Address [address] [place] [address] Phone [phone] Care Team Providers Care Fruit Canner Name Role Phone Marcos Maurice PA-C Primary Care Provide r Reason for Visit * Reason Onset Date Comments Home Health 12/24/2023 Encounter Details Date Type Department Care Team (Late st Contact Info) Description 12/24/2023 Telephone Family Practice [place] Dasilva [address] [place] [address] Marcos Maurice PA-C [address] [facility] [place] [address] Home Health Allergies Active [...] Oral Tablet (Crestor)Indications :Cor pulmonale, chronic ([facility]),COPD, group D, by GOLD 2017 classification ([facility]),Hypertensive heart and kidney disease with chronic diastolic congestive heart failure and stage 3a chronic kidney disease ([facility]),Dyslipidemia,E ssential hypertension with goal blood pressure less [...] 0.1 % Nasal Solution (Astelin) Administer 1 [place] into nostril in the morning and 1 [place] before bedtime. 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 Educated on use. Must call [facility] when initiated so further assessment can be made documented as of this encounter (statuses as of 12/25/2023) Immunizations Name Administration Dates Next Due COVID-19 mRNA, LNP-s, No Pre serve, 2-Dose Series (Moderna) 01/28/2021 Pneumococcal Conjugate Vacci ne, 20-valent ([id number]) 05/10/2022 Pneumococcal Polysaccharide PPV23 (Pneumovax) 11/17/2013 Seasonal [...] encounter Miscellaneous Notes * Telephone Encounter - Judie Stern OSA - 12/25/2023 12:29 PM EST HD scheduled 01/02 * Telephone Encounter - Amaris Hackett LPN - 12/24/2023 9:29 AM EST HH Resumption of Care. SAGE Tovar, Calling from: [facility] Patient was Admitted to: [facility], for: Acute on Chronic Respiratory Failure from 12/19/23 to 12/23/23 Pt was seeing HH prison before going back to [facility] on 12/19/23 Planned resumption start of [...] fax orders for resumption of care to [phone]. * Telephone Encounter - Krysta Macias OSA - 12/24/2023 9:25 AM EST Reason for patient's call: requesting to speak to nurse for resumption of care after hospitalization order entry administrator was transferred to [facility] at the nurse line. documented in this encounter Plan of Treatment Upcoming Encounters Date Type Department Care Team (Late st Contact Info) Description 01/02/2024 11:00 AM EST Office Visit [facility] [place] Das[place]va [address] [place] [address] Piper Cazares DO [address] [place] [address] 01/07/2024 9:00 AM EST Office Visit Pulmonary Medicine Pratibha Anguiano [address] [place] [phone] Marek Berger PA-C [address] [place] [address] 06/18/2024 7:40 AM EDT Office Visit [facility] [address], Osei [address] [facility] [place] [address] Piper Cazares DO [address] [facility] [place] [address] 07/14/2024 1:00 PM EDT [facility], [address] [address] [facility], Pul Function Room 1 [address] [place] [address] 07/14/2024 2:00 PM EDT [facility], [facility] [address] [place] [address] [facility], Pul Function Room 2 [address] [place] [address] 07/23/2024 3:20 PM EDT Office Visit Pulmonary Medicine [facility] [address] [phone] Chance Zimmerman MD [address] [address] Health Maintenance Due Date Last Done Comments [...] Additional history exists CKD PHOS USE SMARTSET 74983 12/19/202411/21, 09/12/2023, 05/21/2023, Additional history exists CKD HGB USE SMARTSET 03730 12/23/202412/23, 12/22/2023, 12/21/2023, Additional history exists O2 ASSESSMENT COMPLETED IN PAST YEAR FOR COPD 12/23/2024 12/23/2023 Lipid Panel 04/19/2027 04/19/2022, 12/21, 01/21/2021, Additional history exists Cervical Cancer Screening Discontinued Pap Smear Discontinued 10/10/2016, 10/21, 11/17/2013, Additional history exists Pneumococcal Vaccine: 65+ Years Completed 05/10/2022, 11/17/2013 LUNG CANCER SCREENING - USE SMARTSET 45463 Completed 09/09/2023, 05/22/2023, 12/15/2022, Additional history exists [...] the patient have Health Care Power of Manager Mba? No Bag Valve Device? Yes Intubation? No [...] First Alternate Health Care Agent Care Teams Fruit Canner Relationship Specialty Start Date End Date Marcos Maurice PA-C [address] [facility] [place] [address] PCP - General Physician Accounting Systems Manager 11/22/23 documented as of this encounter
--- OUTSIDE RECORDS SUMMARY | 2024-04-14 13:01 | External Medical Summary | Summary of Care ---
Author Name Unknown Organization [facility] Address [address] [place] [address] Phone [phone] Care Team Providers Care Extension Division Director Name Role Phone Marcos Maurice PA-C Primary Care Provide r Reason for Visit * Reason Onset Date Comments Home Health 12/24/2023 Encounter Details Date Type Department Care Team (Late st Contact Info) Description 12/24/2023 Telephone Family Practice [place]se[place] Dasilva [address] [place] [address] Marcos Maurice PA-C [address] [facility] [place] [address] Home Health Allergies Active [...] MG Oral Tablet (Crestor)Indications :Cor pulmonale, chronic ([facility]),COPD, group D, by GOLD 2017 classification ([facility]),Hypertensive heart and kidney disease with chronic diastolic congestive heart failure and stage 3a chronic kidney disease ([facility]),Dyslipidemia,E ssential hypertension with goal blood pressure less [...] 0.1 % Nasal Solution (Astelin) Administer 1 [place] into nostril in the morning and 1 [place] before bedtime. 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 Educated on use. Must call [facility] when initiated so further assessment can be made documented as of this encounter (statuses as of 12/25/2023) Immunizations Name Administration Dates Next Due COVID-19 mRNA, LNP-s, No Pre serve, 2-Dose Series (Moderna) 01/28/2021 Pneumococcal Conjugate Vacci ne, 20-valent ([id number]) 05/10/2022 Pneumococcal Polysaccharide PPV23 (Pneumovax) 11/17/2013 Seasonal [...] 3:38 PM EST Driss (registered nurse) from [facility] HH calling to make sure that Dr. Cazares will sign Resumption of care orders for patient Last office visit - 11/22/2023 Next office visit - 01/02/[address] Cazares will sign orders Asked that confirmation be faxed to [phone] * Telephone Encounter - Judie Stern OSA - 12/25/2023 12:29 PM EST HD scheduled 01/02 * Telephone Encounter - Amaris Hackett LPN - 12/24/2023 9:29 AM EST HH Resumption of Care. SAGE Tovar, Calling from: [facility] Patient was Admitted to: [facility], for: Acute on Chronic Respiratory Failure from 12/19/23 to 12/23/23 Pt was seeing intermediate before going back to [facility] on 12/19/23 Planned resumption start of [...] fax orders for resumption of care to [phone]. * Telephone Encounter - Krysta Macias OSA - 12/24/2023 9:25 AM EST Reason for patient's call: requesting to speak to nurse for resumption of care after hospitalization clerical order filler was transferred to [facility] at the nurse line. documented in this encounter Plan of Treatment Upcoming Encounters Date Type Department Care Team (Late st Contact Info) Description 01/02/2024 11:00 AM EST [facility] Dasilva [address] [place] [address] Piper Cazares, DO [address] [place] [address] 01/07/2024 9:00 AM EST [facility] [address] [phone] Marek Berger PA-C [address] [place] [address] 06/18/2024 7:40 AM EDT [facility]sei Dasilva [address] [facility] [place] [address] Piper Cazares, DO [address] [facility] [place] [address] 07/14/2024 1:00 PM EDT [facility] Pulmonary Function Lab, [address] [place] [address] [facility], Pulm Function Room 1 [address] [facility] [place] [address] 07/14/2024 2:00 PM EDT [facility], [facility] [address] [facility] [address] [facility], Pulm Function Room 2 [address] [facility] [place] [address] 07/23/2024 3:20 PM EDT [facility] [address] [phone] Chance Zimmerman MD [address] [address] Health Maintenance Due Date Last Done Comments [...] Additional history exists CKD PHOS USE SMARTSET 54494 12/19/202411/21, 09/12/2023, 05/21/2023, Additional history exists CKD HGB USE SMARTSET 48471 12/23/202412/23, 12/22/2023, 12/21/2023, Additional history exists O2 ASSESSMENT COMPLETED IN PAST YEAR FOR COPD 12/23/2024 12/23/2023 Lipid Panel 04/19/2027 04/19/2022, 12/21, 01/21/2021, Additional history exists Cervical Cancer Screening Discontinued Pap Smear Discontinued 10/10/2016, 10/21, 11/17/2013, Additional history exists Pneumococcal Vaccine: 65+ Years Completed 05/10/2022, 11/17/2013 LUNG CANCER SCREENING - USE SMARTSET 58489 Completed 09/09/2023, 05/22/2023, 12/15/2022, Additional history exists [...] the patient have Health Care Power of Amusement Machine Mechanic? No Bag Valve Device? Yes Intubation? No [...] First Alternate Health Care Agent Care Teams Extension Division Director Relationship Specialty Start Date End Date Marcos Maurice PA-C [address] [facility] [place] [address] PCP - General Physician Quality Control Tech Raw Materials 11/22/23 documented as of this encounter
--- OUTSIDE RECORDS SUMMARY | 2024-04-14 13:01 | External Medical Summary | Summary of Care ---
Author Name Unknown Organization [facility] Address [address] [place] [address] Phone [phone] Care Team Providers Care Jira Administrator Name Role Phone Marcos Maurice PA-C Primary Care Provide r Reason for Visit * Reason Onset Date Comments Home Health 12/24/2023 Encounter Details Date Type Department Care Team (Late st Contact Info) Description 12/24/2023 Telephone Family Practice [place]i Dasilva [address] [place] [place] [address] Marcos Maurice PA-C [address] [facility] [place] [address] Home Health Allergies [...] MG Oral Tablet (Crestor)Indications :Cor pulmonale, chronic ([facility]),COPD, group D, by GOLD 2017 classification ([facility]),Hypertensive heart and kidney disease with chronic diastolic congestive heart failure and stage 3a chronic kidney disease ([facility]),Dyslipidemia,E ssential hypertension with goal blood pressure less [...] 0.1 % Nasal Solution (Astelin) Administer 1 [place] into nostril in the morning and 1 [place] before bedtime. 30 mL 12 01/12/2023 Active [...] ns:COPD, group D, by GOLD 2017 classification ([facility]) Inhale 1 Vial via nebulizer every [...] - TRES o Class D - Inhaled Gohrnhrxkwqmyf-JCMY-NTRX Combination Inhaler (Trellegy) o PD-4 Inhibitor (Daliresp) [...] 04/21/2021 Last Assessment & Plan: Referral to [employer] for assistance in getting nicoderm patches covered [...] Assessment & Plan: Currently followed by web portal developer--not on any antihistamines currently, has follow [...] - TRES o Class D - Inhaled Byovaxijeqlvfd-MEHU-BJFR Combination Inhaler (Trellegy) o PD-4 Inhibitor (Daliresp) Self-Management plan o Prednisone 40mg daily for 5 days Rx o High frequency nebulizer treatments every 4-6 hours around the clock Exacerbation plan o Prednisone rescue kit Rescue kit given today. Educated on use. Must call [facility] when initiated so further assessment can be made documented as of this encounter (statuses as of 12/25/2023) Immunizations Name Administration Dates Next Due COVID-19 mRNA, LNP-s, No Pre serve, 2-Dose Series (Moderna) 01/28/2021 Pneumococcal Conjugate Vacci ne, 20-valent ([id number]) 05/10/2022 Pneumococcal Polysaccharide PPV23 (Pneumovax) 11/17/2013 Seasonal [...] 3:38 PM EST Driss (registered nurse) from [facility] HH calling to make sure that Dr. Cazares will sign Resumption of care orders for patient Last office visit - 11/22/2023 Next office visit - 01/02/[address] Cazares will sign orders Asked that confirmation be faxed to [phone] Faxed with confirmation received * Telephone Encounter - Judie Stern OSA - 12/25/2023 12:29 PM EST HD scheduled 01/02 * Telephone Encounter - Amaris Hackett LPN - 12/24/2023 9:29 AM EST HH Resumption of Care. SAGE Tovar, Calling from: [facility] Patient was Admitted to: [facility], for: Acute on Chronic Respiratory Failure from 12/19/23 to 12/23/23 Pt was seeing fpc before going back to [facility] on 12/19/23 Planned resumption start of care [...] fax orders for resumption of care to [phone]. * Telephone Encounter - Krysta Macias OSA - 12/24/2023 9:25 AM EST Reason for patient's call: requesting to speak to nurse for resumption of care after hospitalization order manager was transferred to [facility] at the nurse line. documented in this encounter Plan of Treatment Upcoming Encounters Date Type Department Care Team (Late st Contact Info) Description 01/02/2024 11:00 AM EST Office Visit [facility] Osei Dasilva [address] [place] [address] Piper Cazares, [address] [place] [address] 01/07/2024 9:00 AM EST Office Visit Pulmonary Medicine Pratibha Anguiano [address] [phone] Marek Berger PA-C [address] [facility] [place] [address] 06/18/2024 7:40 AM EDT Office Visit [facility] Osei Dasilva [address] [place] [address] Piper Cazares, DO [address] [place] [address] 07/14/2024 1:00 PM EDT PulmDiagnostic Pulmonary Function Lab, [facility] [address] [facility] [place] [address] [facility], Pulm Function Room 1 [address] [facility] [place] [address] 07/14/2024 2:00 PM EDT [facility] Pulmonary Function Lab, [facility] [address] [facility] [place] [address] [facility], [facility] [address] [facility] [address] 07/23/2024 3:20 PM EDT Office Visit Pulmonary Medicine Pratibha Anguiano [address] [phone] Chance Zimmerman MD [address] [address] Health Maintenance Due Date Last Done Comments [...] Additional history exists CKD PHOS USE SMARTSET 34268 12/19/202411/21, 09/12/2023, 05/21/2023, Additional history exists CKD HGB USE SMARTSET 18409 12/23/202412/23, 12/22/2023, 12/21/2023, Additional history exists O2 ASSESSMENT COMPLETED IN PAST YEAR FOR COPD 12/23/2024 12/23/2023 Lipid Panel 04/19/2027 04/19/2022, 12/21, 01/21/2021, Additional history exists Cervical Cancer Screening Discontinued Pap Smear Discontinued 10/10/2016, 10/21, 11/17/2013, Additional history exists Pneumococcal Vaccine: 65+ Years Completed 05/10/2022, 11/17/2013 LUNG CANCER SCREENING - USE SMARTSET 71399 Completed 09/09/2023, 05/22/2023, 12/15/2022, Additional history exists [...] the patient have Health Care Power of Retail Loss Prevention Officer? No Bag Valve Device? Yes Intubation? No [...] First Alternate Health Care Agent Care Teams Jira Administrator Relationship Specialty Start Date End Date Marcos Maurice PA-C [address] [facility] [place] [address] PCP - General Physician Bundle Tier And Labeler 11/22/23 documented as of this encounter
--- OUTSIDE RECORDS SUMMARY | 2024-04-14 13:01 | External Medical Summary | Summary of Care ---
Author Name Unknown Organization [facility] Address [address] [place] [address] Phone [phone] Care Team Providers Care Industrial Court Magistrate Name Role Phone Marcos Maurice PA-C Primary Care Provide r Reason for Visit * Reason Onset Date Comments Hospital Follow-Up 12/24/2023 BRYAN Encounter Details Date Type Department Care Team (Late st Contact Info) Description [facility] [place] [address] Marcos Maurice PA-C [address] [facility] [place] [address] Hospital Follow-Up (BRYAN) Allergies Active Allergy Reactions Criticality Noted Date Comments Cortisone Muscle pain Medium 04/09/2017 At site of shot Bee Venom Anaphylaxis High 06/25/2021 Hydrocortisone High 12/25/2021 Other reaction(s): PAIN,UNABLE TO MOVE documented as of this encounter (statuses as of 12/24/2023) Medications Medication Sig Dispensed Refills Start Date [...] 0.1 % Nasal Solution (Astelin) Administer 1 Gipsy into nostril in the morning and 1 Gipsy before bedtime. 30 mL 12 01/12/2023 Active [...] as of this encounter (statuses as of 12/24/2023) Active Problems Problem Noted Date Diagnosed Date [...] - TRES o Class D - Inhaled Jwoajiqnalysge-IBWN-UAZY Combination Inhaler (Trellegy) o PD-4 Inhibitor (Daliresp) [...] 4.5L today, typically wears 3L. No distress. ADAIL gave pulse oximeter to monitor SpO2, advised to contact [facility] if <90% and titrate as necessary, Tobacco use disorder 04/21/2021 Last Assessment & Plan: Referral to [employer] for assistance in getting nicoderm patches [...] Last Assessment & Plan: Currently followed by flat cutter--not on any antihistamines currently, has follow up [...] as of this encounter (statuses as of 12/24/2023) Resolved Problems Problem Noted Date Diagnosed Date [...] - TRES o Class D - Inhaled Nipulqkcdujjfr-BQRL-VUAE Combination Inhaler (Trellegy) o PD-4 Inhibitor (Daliresp) Self-Management plan o Prednisone 40mg daily for 5 days Rx o High frequency nebulizer treatments every 4-6 hours around the clock Exacerbation plan o Prednisone rescue kit Rescue kit given today. Educated on use. Must call [facility] when initiated so further assessment can be made documented as of this encounter (statuses as of 12/24/2023) Immunizations Name Administration Dates Next Due COVID-19 mRNA, LNP-s, No Pre serve, 2-Dose Series (Moderna) 01/28/2021 Pneumococcal Conjugate Vacci ne, 20-valent ([id number]) 05/10/2022 Pneumococcal Polysaccharide PPV23 (Pneumovax) 11/17/2013 Seasonal [...] encounter Miscellaneous Notes * Telephone Encounter - Cherie Rg RN - 12/24/2023 1:18 PM EST Transitions of Care Note Reason for Referral:Recent Admission Phone visit for follow up: BRYAN Admitted to: [facility], Date: 12/19/2023 Discharged to: Home with health services, Date: 12/23/2023 Diagnosis driving hospitalization: Acute on chronic respiratory failure with hypoxia and hypercapnia. Source/Contact: Patient SUBJECTIVE Consent: Verbal consent for review of hospital discharge: Yes REVIEW OF SYSTEMS Patient/Other Reports: Current patient/caregiver problems or concerns: Patient states that she is doing ok. Utilizing 4 Liters of oxygen at this time. CV: Denies problems Pulmonary: SOB- with exertion Oxygen- 4 liters at all times Chills/Sweats/Fever:Denies chills/sweats Denies fever Appetite:Denies problems such as nausea, vomiting, burning, decreased appetite Current diet: regular Bowel: denies problems Bladder: denies problems Wound (If applicable): N/A Pain:Denies Sleep:Denies problems FUNCTIONAL STATUS: ADL'S: Needs Assistance With:N/A as pt is independent IADL'S: Needs Assistance With:N/A as pt is independent Cognitive and Mental Health: denies problems, alert and oriented x 3, and able to communicate, understand instructions, process information. MEDICATION RECONCILIATION Medications: Discharge med list reviewed with patient or caregiver Reviewed and updated all prescription and OTC medications in Epic New medication(s) filled since hospitalization- Acetylcysteine Discontinued medication(s) since hospitalization- prednisone Reports all medications taken as prescribed. Denies side effects ASSESSMENT Medication Risk Assessment: Taking sedatives/hypnotics/narcotic analgesics and increased fall risk Did patient fail outpatient treatment? No Discharge instructions available for review? Yes PLAN Symptom Monitoring Interventions:Member/caregiver education - signs and symptoms to contact Primary[facility] (DO NOT DELETE-Three cole symptoms patient is to report to PCP) 1. Worsening SOB 2. Fever/chills 3. Leg pain/swelling Wetland ScientistDimensional Inspector of Care interventions/Action Plan: Medication reconciliation and 5 - 7 day follow-up with PCP in place - Date: 01/02/2024 Educated on role of BRYAN completed with patient/caregiver. Educated patient/caregiver on patient right to have input on BRYAN plan of care. Verification of Home Health/DME if indicated: YES [facility] Home Health, patient states that they are tocall her to set up the next appointment Identified Care Gaps: Yes Care Gaps closed this call: Appointment made or confirmed, Medication adherence, Medication monitoring, Medication optimization, Plan of care optimization, Post discharge appointment, Services in place, and Transition of Care follow-up communication Re-evaluation of Plan of Care and progress towards goals achievement: Patient education this visit: Verbal, see above Plan to follow-up as previously scheduled, instructed to call Primary Care Provider with change in symptoms or as needed before next follow-up, discharge needs met, verbalizes understanding and agrees with plan. Cherie Rg RN * Telephone Encounter - Cherie Rg RN - 12/24/2023 12:47 PM EST Transitions of Care Note Reason for Referral:Recent Admission Phone visit for follow up: BRYAN Admitted to: [facility], Date: 12/19/2023 Discharged to: Home with health services, Date: 12/23/2023 Diagnosis driving hospitalization: Acute on chronic respiratory failure with hypoxia and hypercapnia Spoke with patient. Patient would like a call back later. Cherie Rg RN documented in this encounter Plan of Treatment Upcoming Encounters Date Type Department Care Team (Late st Contact Info) Description 01/02/2024 11:00 AM EST Office Visit [facility] Osei Dasilva [address] [place] [address] Piper Cazares DO [address] [place] [address] 01/07/2024 9:00 AM EST Office Visit Pulmonary Medicine Pratibha Anguiano [address] [place] [phone] Marek Berger [facility]-C [address] [facility] [address] 06/18/2024 7:40 AM EDT Office Visit [facility] Osei Dasilva [address] [place] [address] Piper Cazares, [address] [facility] [place] [address] 07/14/2024 1:00 PM EDT PulmDiagnostic Pulmonary Function Lab, [facility] [address] [place] [address] Gl, Pulm Function Room 1 [address] [place] [address] 07/14/2024 2:00 PM EDT [facility] Pulmonary Function Lab, [facility] [address] [place] [address] Gl, Pulm Function Room 2 [address] [place] [address] 07/23/2024 3:20 PM EDT Office Visit [facility] [address] [place] [phone] Chance Zimmerman MD [address] [place] [address] Health Maintenance Due Date Last Done Comments [...] Additional history exists CKD PHOS USE SMARTSET 58892 12/19/202411/21, 09/12/2023, 05/21/2023, Additional history exists CKD HGB USE SMARTSET 83137 12/23/202412/23, 12/22/2023, 12/21/2023, Additional history exists O2 ASSESSMENT COMPLETED IN PAST YEAR FOR COPD 12/23/2024 12/23/2023 Lipid Panel 04/19/2027 04/19/2022, 12/21, 01/21/2021, Additional history exists Cervical Cancer Screening Discontinued Pap Smear Discontinued 10/10/2016, 10/21, 11/17/2013, Additional history exists Pneumococcal Vaccine: 65+ Years Completed 05/10/2022, 11/17/2013 LUNG CANCER SCREENING - USE SMARTSET 48606 Completed 09/09/2023, 05/22/2023, 12/15/2022, Additional history exists [...] the patient have Health Care Power of Transmission Repairer? No Bag Valve Device? Yes Intubation? No [...] First Alternate Health Care Agent Care Teams Industrial Court Magistrate Relationship Specialty Start Date End Date Marcos Maurice PA-C [address] [facility] [place] [address] PCP - General Physician Project Portfolio Analyst 11/22/23 documented as of this encounter
--- OUTSIDE RECORDS SUMMARY | 2024-04-14 13:01 | External Medical Summary | Summary of Care ---
Author Name Unknown Organization [facility] Address [address] [place] [address] Phone [phone] Care Team Providers Care Technology Architect Name Role Phone Marcos Gamble PA-C Primary Care Provide r Reason for Visit * Reason Onset Date Comments Hospital Follow-Up 12/23/2023 Encounter Details Date Type Department Care Team (Late st Contact Info) Description 12/23/2023 [facility] [address] [facility] [place] [address] Marcos Gamble PA-C [address] [place] [address] Hospital Follow-Up Allergies Active Allergy Reactions Criticality Noted Date [...] MG Oral Tablet (Crestor)Indications :Cor pulmonale, chronic ([facility]),COPD, group D, by GOLD 2017 classification ([facility]),Hypertensive heart and kidney disease with chronic diastolic congestive heart failure and stage 3a chronic kidney disease ([facility]),Dyslipidemia,E ssential hypertension with goal [...] 0.1 % Nasal Solution (Astelin) Administer 1 Parnell into nostril in the morning and 1 Parnell before bedtime. 30 mL 12 01/12/2023 Active [...] ns:COPD, group D, by GOLD 2017 classification ([facility] [...] - TRES o Class D - Inhaled Pblmeekqzxbcbf-RTUK-XBOK Combination Inhaler (Trellegy) o PD-4 Inhibitor (Daliresp) [...] 04/21/2021 Last Assessment & Plan: Referral to [employer] for assistance in getting nicoderm patches covered [...] Last Assessment & Plan: Currently followed by crm marketing executive--not on any antihistamines currently, has follow up [...] - TRES o Class D - Inhaled Fcjkxesdxrnydx-KOUP-UBBN Combination Inhaler (Ernestollegy) o PD-4 Inhibitor (Daliresp) Self-Management plan o Prednisone 40mg daily for 5 days Rx o High frequency nebulizer treatments every 4-6 hours around the clock Exacerbation plan o Prednisone rescue kit Rescue kit given today. Educated on use. Must call [facility] when initiated so further assessment can be made documented as of this encounter (statuses as of 12/24/2023) Immunizations Name Administration Dates Next Due COVID-19 mRNA, LNP-s, No Pre serve, 2-Dose Series (Moderna) 01/28/2021 Pneumococcal Conjugate Vacci ne, 20-valent ([id number]) 05/10/2022 Pneumococcal Polysaccharide PPV23 (Pneumovax) 11/17/2013 Seasonal [...] Telephone Encounter - Judie Stern OSA - 12/24/2023 1:36 PM EST Pt scheduled 01/02 * Telephone Encounter - Neeta Mckeon OSA - 12/23/2023 4:12 PM EST Patient Name: EDNA MCCLENDON([id number]) Sex: Female : 1960 PCP: MARCOS GAMBLE Center: [facility] Types of orders made on 12/23/2023: Communication, IP Discharge, IP Post Discharge , Lab, Medications, Point of Care Test ing, Point of Care Testing - Unsolicited Results, Respiratory Order Date:12/23/2023 Ordering User:OLU HEALY [[id number]] Attending Provider:Zac Ponce DO [[id number]] Authorizing Provider: Olu Healy DO [[id number]] Department:[address] [place] [address][[id number]] Order Specific Information Order: RETURN APPT [CUSTOM: [id number]] Order #: [id number]: [id number] Priority: Routine Class: Nursing Unit Department (Single Entry) -> Family Practice Appt Needed Within: (Specify # of Days, Weeks, Months) -> 1 Wk Released on: 12/23/2023 10:31 AM Priority: Routine Class: Nursing Unit Department (Single Entry) -> Family Practice Appt Needed Within: (Specify # of Days, Weeks, Months) -> 1 Wk Released on: 12/23/2023 10:31 AM documented in this encounter Plan of Treatment Upcoming Encounters Date Type Department Care Team (Late st Contact Info) Description 01/02/2024 11:00 AM EST Office Visit Family Practice [address] [place] [address] Piper Cazares DO [address] [place] [address] 01/07/2024 9:00 AM EST Office Visit [facility] [address] [place] [phone] Marek Berger PA-C [address] [place] [address] 06/18/2024 7:40 AM EDT Office Visit [facility] [place] [address] [facility] [place] [address] Piper Cazares DO [address] [facility] [place] [address] 07/14/2024 1:00 PM EDT PulmDiagnostic Pulmonary Function Lab, [address] [address] [facility], Pulm Function Room 1 [address] [place] [address] 07/14/2024 2:00 PM EDT PulmDiagnostic Pulmonary Function Lab, [address] [address] [facility], Pulm Function Room [address] [place] [address] 07/23/2024 3:20 PM EDT Office Visit Pul[facility] [address] [place] [phone] Chance Zimmerman MD [address] [facility] [address] Health Maintenance Due Date Last Done Comments Alpha-1 Antitrypsin 1976 Diabetic Foot Exam 1976 Cologuard 2003 Sigmoidoscopy 2003 Zoster Vaccines (1 of 2) 2008 Fecal Occult Blood Test 11/17/2014 11/17/2013 Hepatitis B (1 of 3 - Risk 3-dose series) 2018 Mammogram 11/27/2018 11/27/2017, 12/0 04/2016, 12/05/2013 Colonoscopy 09/20/2020 09/20/2010 Colorectal Cancer Screening 09/20/2020 *ADVANCE DIRECTIVE NOT ON FILE 04/29/2022 Albumin/Creatinine Ratio 02/03/2023 02/03/2022, 08/05/2017 Depression Screening 02/20/2023 02/20/2022 COVID-19 Vaccine (2 - 2022- season) 2023 01/28/2021 DXA Scan 2023 DTaP,Tdap,and Td Vaccines (2 - Td or Tdap) 11/17/2023 11/17/2013 HbA1c 06/19/2024 12/20/2023, 08/20, 05/22/2023, Additional history exists GFR 06/22/2024 12/23/2023, 01/2024, 12/21/2023, Additional history exists Diabetic Eye Exam 12/10/2024 12/10/2023, , 12/10/2023, Additional history exists CKD PHOS USE SMARTSET 18364 12/19/202411/21, 09/12/2023, 05/21/2023, Additional history exists CKD HGB USE SMARTSET 55146 12/23/202412/23, 12/22/2023, 12/21/2023, Additional history exists O2 ASSESSMENT COMPLETED IN PAST YEAR FOR COPD 12/23/2024 12/23/2023 Lipid Panel 04/19/2027 04/19/2022, 12/21, 01/21/2021, Additional history exists Cervical Cancer Screening Discontinued Pap Smear Discontinued 10/10/2016, 10/21, 11/17/2013, Additional history exists Pneumococcal Vaccine: 65+ Years Completed 05/10/2022, 11/17/2013 LUNG CANCER SCREENING - USE SMARTSET 14150 Completed 09/09/2023, 05/22/2023, 12/15/2022, Additional history exists [...] the patient have Health Care Power of Supervisor Abattoir? No Bag Valve Device? Yes Intubation? No [...] First Alternate Health Care Agent Care Teams Technology Architect Relationship Specialty Start Date End Date Marcos Gamble PA-C [address] [place] [address] PCP - General Physician Senior Recruitment Consultant 11/22/23 documented as of this encounter
--- OUTSIDE RECORDS SUMMARY | 2024-04-14 13:02 | External Medical Summary ---
Author Name Unknown Address Unknown Organization : Laboratory Report Ordering Provider Test Date Status MONET RAINES 12/20/2023 08:16:03 Final Observation Date Value Abnormality Reference (Units ) Status Glucose Point of Care 12/20/2023 08:16:03 285 Above high normal 70-120 (mg/dL) Final Performing Location
--- OUTSIDE RECORDS SUMMARY | 2024-04-14 13:02 | External Medical Summary ---
Author Name Unknown Address Unknown Organization : Laboratory Report Ordering Provider Test Date Status MONET RAINES 12/22/2023 07:56:11 Final Observation Date Value Abnormality Reference (Units ) Status Glucose Point of Care 12/22/2023 07:56:11 108 70-120 (mg/dL) Final Performing Location
--- OUTSIDE RECORDS SUMMARY | 2024-04-14 13:02 | External Medical Summary ---
Author Name Unknown Address Unknown Organization : Laboratory Report Ordering Provider Test Date Status MONET RAINES 12/21/2023 08:13:38 Final Observation Date Value Abnormality Reference (Units ) Status Glucose Point of Care 12/21/2023 08:13:38 139 Above high normal 70-120 (mg/dL) Final Performing Location
--- OUTSIDE RECORDS SUMMARY | 2024-04-14 13:02 | External Medical Summary ---
Author Name Unknown Address Unknown Organization K01:[facility] [address] [place] [address] Laboratory Report Ordering Provider Test Date Status PRAVEENAERIKA 12/20/2023 05:03:00 Final Observation Date Value Abnormality Reference (Units ) Status HbA1C 12/20/2023 05:03:00 8.0 Above high normal 4. 0-5.6 (%) Final The use of HbA1c to monitor glycemic status is based on normal hemoglobin and HbA composition. This test should not be used in patients with abnormal hemoglobin that affects the half life of the red blood cell or the in vivo glycation rates. Glucose, estimated average 12/20/2023 05:03:00 183 Above high normal <126 (mg/dL) Umang conrad Performing Location [facility] [address] [place] [address]
--- OUTSIDE RECORDS SUMMARY | 2024-04-14 13:02 | External Medical Summary ---
Author Name Unknown Address Unknown Organization : Laboratory Report Ordering Provider Test Date Status MONET RAINES 12/20/2023 21:19:10 Final Observation Date Value Abnormality Reference (Units ) Status Glucose Point of Care 12/20/2023 21:19:10 246 Above high normal 70-120 (mg/dL) Final Performing Location
--- OUTSIDE RECORDS SUMMARY | 2024-04-14 13:02 | External Medical Summary ---
Author Name Unknown Address Unknown Organization : Laboratory Report Ordering Provider Test Date Status MONET RAINES 12/21/2023 11:57:56 Final Observation Date Value Abnormality Reference (Units ) Status Glucose Point of Care 12/21/2023 11:57:56 253 Above high normal 70-120 (mg/dL) Final Performing Location
--- OUTSIDE RECORDS SUMMARY | 2024-04-14 13:02 | External Medical Summary ---
Author Name Unknown Address Unknown Organization K1F:[facility] - [address] [place] [address] Laboratory Report Ordering Provider Test Date Status MONET RAINSE 12/21/2023 07:55:00 Final Observation Date Value Abnormality Reference (Units ) Status BUN 12/21/2023 07:55:00 32 Above high normal 6-20 (mg/dL) Final Creatinine 12/21/2023 07:55:00 1.3 Above high normal 0.5-1.0 (mg/dL) Final Glomerular filtration rate/1.73 sq M.predicted [Volume Rate/Area] in Serum, Plasma or Blood by Creatinine-based formula (CKD-EPI) 12/21/2023 07:55:00 44 Below low normal >=60 (mL/min) Final eGFR is calculated based on the CKD-EPI 2020 equation SODIUM 12/21/2023 07:55:00 140 135-146 (m mol/L) Final Potassium 12/21/2023 07:55:00 3.5 3.5-5.1 (m mol/L) Final Cl 12/21/2023 07:55:00 92 Below low normal 98- 107 (mmol/L) Final CO2 12/21/2023 07:55:00 39 Above high normal 22 -32 (mmol/L) Final Anion gap 12/21/2023 07:55:00 9 7-15 (mmol /L) Final Glucose 12/21/2023 07:55:00 149 Above high normal 70 -120 (mg/dL) Final Calcium 12/21/2023 07:55:00 8.3 Below low normal 8.4 -10.2 (mg/dL) Final Performing Location LABORATORY [facility] - [address] [place] [address]
--- OUTSIDE RECORDS SUMMARY | 2024-04-14 13:02 | External Medical Summary ---
Author Name Unknown Address Unknown Organization : Laboratory Report Ordering Provider Test Date Status MONET RAINES 12/22/2023 21:07:40 Final Observation Date Value Abnormality Reference (Units ) Status Glucose Point of Care 12/22/2023 21:07:40 129 Above high normal 70-120 (mg/dL) Final Performing Location
--- OUTSIDE RECORDS SUMMARY | 2024-04-14 13:02 | External Medical Summary ---
Author Name Unknown Address Unknown Organization : Laboratory Report Ordering Provider Test Date Status MONET RAINES 12/21/2023 21:29:24 Final Observation Date Value Abnormality Reference (Units ) Status Glucose Point of Care 12/21/2023 21:29:24 215 Above high normal 70-120 (mg/dL) Final Performing Location
--- OUTSIDE RECORDS SUMMARY | 2024-04-14 13:02 | External Medical Summary | Summary of Care ---
Author Name Unknown Organization [facility] Address [address] [place] [address] Phone [phone] Care Team Providers Care Document Control Supervisor Name Role Phone Marcos Gamble PA-C Primary Care Provide r Reason for Visit * Reason Comments Short of Breath Pain * Auth/Cert Specialty Diagnoses / Procedures Referred By Frantz t Referred To Contact Referral ID Status Reason Start Date Expiration Date Visits Re quested Visits Authorized [id number] Encounter Details Date Type Department Care Team (Latest Contact Info) Description 12/19/2023 12:08 PM EST - 12/23/2023 1:21 PM [facility] Hospital Encounter 3B [facility] 3rd Floor [address] [place] [address] Zac Ponce, DO [address] [place] [address] Hermilo Dodd, DO [address] [facility] [place] [address] Jesse Thurston, [address] [facility] [place] [phone] Various: CDIQDC,KRAVS,EKG Discharge Disposition: Home with Services Allergies Active Allergy Reactions Criticality Noted Date [...] , group D, by GOLD 2017 classification ([facility]),Chronic hypoxemic respiratory failure ([facility]) 2 LPM at bedtime & at rest & 3 LPM with all exertion via n/c DX J 44.9 1 Each 0 2 Active Fluticasone Propionate 50 MCG/ACT Nasal Suspension (Flonase) Administer into each nostril 2 Sprays in the morning. 15.8 mL 2 2 Active Roflumilast 500 MCG Oral Tablet (Daliresp) Take by mouth 1 Tablet in the morning. 30 Tablet 5 2 Active rOPINIRole HCl 2 MG Oral Tablet (Requip)Indications :Primary insomnia,Restless legs syndrome Take by mouth 1 Tablet in the morning AND 1 Tablet before bedtime. 60 Tablet 5 2 Active Rosuvastatin Calcium 20 MG Oral Tablet (Crestor)Indication s:Cor pulmonale, chronic ([facility]),COPD, group D, by GOLD 2017 classification ([facility]),Hypertensive heart and kidney disease with chronic diastolic congestive heart failure and stage 3a chronic kidney disease ([facility]),Dyslipidemia, Essential hypertension with goal blood pressure less than 140/90 Take by mouth 1 Tablet in the morning. 90 Tablet 3 2 Active traZODone HCl 100 MG Oral Tablet (Desyrel) Take by mouth 1 Tablet before bedtime. 30 Tablet 5 2 Active Empagliflozin 10 MG Oral Tablet (Jardiance)Indicati ons:Type 2 diabetes mellitus with stage 3a chronic kidney disease, without long-term current use of insulin ([facility]) Take 1 Tablet by mouth in the morning. 30 Tablet 11 3 Active metFORMIN HCl 1000 MG Oral Tablet (Glucophage)Indicat ions:Type 2 diabetes mellitus with stage 3a chronic kidney disease, without long-term current use of insulin ([facility]) Take 1 Tablet by mouth 2 times a day with morning and evening meals. 60 Tablet 5 3 Active Azelastine HCl 0.1 % Nasal Solution (Astelin) Administer 1 [place] into nostril in the morning and 1 [place] before bedtime. 30 mL 12 3 Active Gabapentin 600 MG Oral Tablet (Neurontin)Indicati ons:Generalized osteoarthritis Take 1 Tablet by mouth in the morning and 1 Tablet before bedtime. 180 Tablet 3 3 Active Furosemide 80 MG Oral Tablet (Lasix)Indications: Generalized osteoarthritis,[place] kunal diastolic heart failure (HCC) Take 1 [...] 6 3 Active Vitamin D3 50 MCG (1999 [place]) Oral CapsuleIndications: Vitamin D deficiency Take 1 Capsule by mouth in the morning. 90 Capsule 1 3 Active Eliquis 5 MG Oral TabletIndications:P ersonal history of DVT (deep vein thrombosis) take 1 tablet by mouth every morning and at bedtime 60 Tablet 3 3 Active Albuterol Sulfate (2.5 MG/3ML) 0.083% Inhalation Nebulization Solution (Proventil)Indicati ons:COPD, group D, by GOLD 2017 classification ([facility]) Inhale 1 Vial via nebulizer every 4 hours as needed for Wheezing or Shortness of Breath. 180 mL 11 3 Active Escitalopram Oxalate 20 MG Oral Tablet (Lexapro)Indication s:MARCIE (generalized anxiety disorder) Take 1 Tablet by mouth in the morning. In the morning.. 90 Tablet 1 3 Active Cetirizine HCl 10 MG Oral CapsuleIndications: Viral URI with cough,Acute exacerbation of chronic obstructive pulmonary disease (COPD) ([facility]) Take 1 Capsule by mouth at [...] the morning. 90 Tablet 1 3 Active Azithromycin 500 MG Oral Tablet (Zithromax) Take 1 Tablet by mouth once a day on Sunday, Sunday, and Sunday only. 13 Tablet 11 3 Active Albuterol Sulfate HFA 108 (90 Base) MCG/ACT Inhalation Aerosol SolutionIndications :COPD, severe (HCC) Take 2 puffs every four hours as need for shortness of breath or wheezing 18 g 3 4 Active Acetylcysteine 600 MG Oral Capsule (NAC) Take 1 Capsule by mouth in the morning and 1 Capsule before bedtime. Do all this for 10 days. 20 Capsule 0 4 01/02/20 24 Active predniSONE 20 MG Oral Tablet (Deltasone)Indicati ons:COPD, group D, by GOLD 2017 classification (HCC) Take 2 tablets daily for 5 days, followed by 1 tablet daily for 5 days. 15 Tablet 0 4 12/23/19 24 Discontinued Hospital, Clinic, or Other Facility [...] - TRES o Class D - Inhaled Xeztzkdrlbalia-GKPG-[id number] Combination Inhaler (Trellegy) o PD-4 Inhibitor (Daliresp) [...] oximeter to monitor SpO2, advised to contact [facility] if <90% and titrate as necessary, Tobacco use disorder 04/21/2021 Last Assessment & Plan: Referral to Mobile Messenger for assistance in getting nicoderm patches covered [...] Last Assessment & Plan: Currently followed by lawn specialist--not on any antihistamines currently, has follow [...] interval not displayed. Medication Regimen: o Beta Maen Therapy: Other: none o BOLIVAR Inhibitor/ARB Therapy: [...] - TRES o Class D - Inhaled Cypdijqzqhzahy-ATIK-CEZY Combination Inhaler (Trellegy) o PD-4 Inhibitor (Daliresp) Self-Management plan o Prednisone 40mg daily for 5 days Rx o High frequency nebulizer treatments every 4-6 hours around the clock Exacerbation plan o Prednisone rescue kit Rescue kit given today. Educated on use. Must call [facility] when initiated so further assessment can be made documented as of this encounter (statuses as of 12/24/2023) Immunizations Name Administration Dates Next Due COVID-19 mRNA, LNP-s, No Pre serve, 2-Dose Series (Moderna) 01/28/2021 Pneumococcal Conjugate Vacci ne, 20-valent ([id number]) 05/10/2022 Pneumococcal Polysaccharide PPV23 (Pneumovax) 11/17/2013 Seasonal [...] Smoke Exposure: Past Smokeless Tobacco: Never Tobacco Cessation:Counseling Given: Not Answered Alcohol Use Standard Drinks/Week [...] Sign Reading Time Taken Comments Blood Pressure 106/50 12/23/2023 7:40 AM EST Pulse 89 12/23/2023 10:23 AM EST Temperature 36.6 C (97.8 F) 12/23/2023 7:40 AM ES T Respiratory Rate 26 12/23/2023 7:40 AM EST Oxygen Saturation 91% 12/23/2023 10:23 AM EST Inhaled Oxygen Concentration - - Weight 89.4 kg (197 lb) 12/23/2023 6:03 AM EST Height 167.6 cm (5' 6") 12/19/2023 5:03 PM EST Body Mass Index 31.8 12/19/2023 5:03 PM EST documented in this encounter Functional [...] 12/19/2023 documented as of this encounter Discharge Summaries * Jesse Thurston, - 12/23/2023 9:31 AM EST Images from the original note were not included. [address] [id number] Admission Date: 12/19/2023 Discharge Date: 12/23/2023 RECOMMENDED TO DO FOR NEXT PROVIDER(S): Follow-up with Pulmonary Clinic Continue supplemental oxygen REASON(S) FOR MEDICATION CHANGE(S): Acetylcysteine DISPOSITION ON DISCHARGE: home with health services Active Hospital Problems Diagnosis *Principal Diagnosis - Acute on chronic respiratory failure with hypoxia and hypercapnia (HCC) Chronic anticoagulation Pain in both lower legs Acute metabolic encephalopathy COPD, group D, by GOLD 2017 classification (HCC) Bilateral lower extremity edema Type 2 diabetes mellitus with stage 3a chronic kidney disease, without long-term current use of insulin (HCC) Personal history of pulmonary embolism Tobacco use disorder Chronic hypoxemic respiratory failure (HCC) Chronic diastolic heart failure (HCC) COPD exacerbation (HCC) Recurrent major depressive disorder, in partial remission (HCC) Resolved Hospital Problems No resolved problems to display. ADMISSION HISTORY & PHYSICAL EXAM (focused): 63 year old female with PMH significant for severe COPD, chronic respiratory failure with hypoxia for which she wears 3-4 liters NC at all times, CHF who presented to the ED for increased SOB. Patient reports that for the past few days she has been wheezing, home inhalers and HFN provided little relief. + cough productive at times for white sputum. Denies fever or chills. Denies rhinitis or sore throat. Denies chest pain or palpitations. Denies n/v, abd pain, constipation, or diarrhea. Denies dysuria, urgency, or frequency. Chronic bilat LE edema but notes that she has been having whatshe describes as intermittent "sharp pains" in her hips and legs for approximately 3 weeks without reflief to date. Notes that the pain is causing her not to sleep at times too especially over the past few days. Denies any recent falls or injuries. Denies any previous back/spine or leg issues. In ED, note to have low grade temp and SpO2 89% on her usual 4 liters NC. Normotensive, + tachypneaand resting tachycardia. VBG with pH 7.421, pO2 29.7, pCO2 73 (56.9-77.9 in past). Initial [id number] with repeat 75 (baseline 19-48), BNP 94, [...] trachea. , bilat LE vascular duplex negative Most Recent Vital Signs: BP: 110 mmHg/56 mmHg (12/19/23 1600) Pulse: 97 (12/19/23 1600) Temp: 37.22 C (12/19/23 1202) Temp Summary: Temp Min: 37.2 C (99 F) Max: 37.2 C (99 F) SpO2: 96 % (12/19/23 1600) O2 flow rate: 5 L/MIN (12/19/23 1600) Supplemental O2 Delivery: Nasal Cannula (12/19/23 1600) Wt Readings from Last 3 Encounters: 12/19/23 90.7 kg (200 lb) 11/22/23 89.4 kg (197 lb 3.2 oz) 10/15/23 86.2 kg (190 lb) General: supine on liter in ED with HOB elevated, in no acute distress, continuous albuterol HFN on Psych: pleasant, cooperative, good eye contact Neuro: drowsy, oriented X 3, fluent speech; moves all extremities without difficulty, follows simple commands Eye Exam: Conjunctiva are pink and non-injected, sclera clear, no xanthelasma Ears: External ears normal; [place] Oropharynx: mucous membranes moist Heart: regular rate & rhythm, no murmurs, and no gallops Lungs: course left base, diminished right base, faint expiratory wheezing right base wheezing, no rales, no rhonchi, respirations even and unlabored, no use of accessory muscles, no retractions Abdomen: abdomen soft, non-tender, normal bowel sounds in all 4 quadrants, and no rebound or guarding Back: No CVA tenderness, no tenderness to palpation Extremities: +1 bilat LE edema; no bilat calf tenderness, no clubbing, no cyanosis, capillary refill < 3 seconds; diffuse tenderness bilat LE with palpation; + equal sensation intact bilat LE MSK: 2-3/5 bilat LE and UE strength, able to lift bilat LE off liter approximately 15-20 degrees Integumentary: [place], warm, dry; no significant rashes or lesions HOSPITAL COURSE (focused): 73-year-old woman with PMH [...] is currently on at home. - continue [employer] inhalers. - CXR and CT PE were reviewed previously and there was no evidence of consolidation or infiltrate. Continue azithromycin MWF as previously taken - completed 5 day course of steroids - continue [employer] Lasix - evaluated by PT and OT. Care management has set up home health with [facility] Operations & Procedures: none Complications: none significant Significant Lab and Imaging Results: Results for orders placed or performed during the hospital encounter of 12/19/23 COMPREHENSIVE METABOLIC PANEL Result Value Ref Range BUN 24 (H) 6 - 20 mg/dL Creatinine 1.2 (H) 0.5 - 1.0 mg/dL Estimated Glomerular Filtration Rate 49 (L) >=60 mL/min Sodium 141 135 - 146 mmol/L Potassium 2.7 (L) 3.5 - 5.1 mmol/L Chloride 87 (L) 98 - 107 mmol/L CO2 42 (H) 22 - 32 mmol/L Anion Gap 12 7 - 15 mmol/L Glucose 240 (H) 70 - 120 mg/dL Albumin 3.8 3.8 - 5.0 g/dL AST 20 10 - 35 U/L Alkaline Phosphatase 120 35 - 130 U/L Bilirubin, Total 0.3 <=1.2 mg/dL Calcium 8.9 8.4 - 10.2 mg/dL Protein 6.6 6.0 - 8.3 g/dL ALT 12 10 - 35 U/L BNP, NT-PRO Result Value Ref Range BNP, NT-Pro 94 <300 pg/mL TROPONIN T, HIGH SENSITIVITY Result Value Ref Range Troponin T, High Sensitivity 84 (H) <=14 ng/L PT INR Result Value Ref Range Prothrombin Time 13.3 11.6 - 15.2 seconds INR 1.0 0.8 - 1.2 RESPIRATORY PATHOGEN PANEL, PCR [...] Negative CBC Result Value Ref Range WBC 8.02 4.00 - 10.80 K/uL RBC 3.39 3.85 - 5.15 M/uL HGB 10.2 (L) 12.0 - 15.3 g/dL HCT 32.9 (L) 36.0 - 45.2 % MCV 97.1 81.5 - 97.5 fL MCH 30.1 27.0 - 34.0 pg MCHC 31.0 32.0 - 36.0 g/dL RDW 16.4 11.5 - 15.5 % PLT 374 140 - 400 K/uL MPV 9.3 6.6 - 11.1 fL nRBCs 0 <=0 /100 WBCs DIFFERENTIAL, AUTOMATED Result Value Ref Range WBC 8.02 4.00 - 10.80 K/uL Neutrophils % 78.3 (H) 40.0 - 75.0 % Lymphocytes % 12.3 (L) 18.0 - 42.0 % Monocytes % 6.9 1.0 - 11.0 % Eosinophils % 1.9 0.0 - 6.0 % Basophils % 0.1 0.0 - 2.0 % Immature Granulocytes % 0.5 0.0 - 2.0 % Absolute Neutrophils 6.28 1.80 - 7.70 K/uL Absolute Lymphocytes 0.99 (L) 1.00 - 4.80 K/ul Absolute Monocytes 0.55 0.00 - 1.10 K/uL Absolute Eosinophils 0.15 0.00 - 0.70 K/uL Absolute Basophils 0.01 0.00 - 0.20 K/uL Absolute Immature Granulocytes 0.04 0.00 - 0.20 K/uL BLOOD GAS, VENOUS Result Value Ref Range Temperature 37.0 C pH, Venous 7.421 7.320 - 7.430 units pCO2, Venous 73.0 (H) 40.0 - 60.0 mmHg pO2, Venous 29.7 25.0 - 50.0 mmHg Base Excess, Venous 19.1 (H) -2.0 - 2.0 mmol/L Hemoglobin, Whole Blood 9.9 (L) 12.0 - 15.3 g/dL Oxyhemoglobin, Venous 45.0 40.0 - 85.0 % total Hgb Carboxyhemoglobin, Whole Blood 2.2 (H) <=1.5 % total Hgb Methemoglobin, Whole Blood 0.9 <=1.5 % total Hgb Reduced Hemoglobin, Venous 51.9 % total Hgb O2 Content, Venous 6.3 (L) 7.0 - 18.0 %vol Bicarbonate, Whole Blood 46.6 (H) 23.0 - 31.0 mmol/L D-DIMER Result Value Ref Range D-Dimer 1.11 (H) <0.50 ug/mL FEU MAGNESIUM Result Value Ref Range Magnesium 1.9 1.5 - 2.6 mg/dL PHOSPHORUS Result Value Ref Range Phosphorus 2.6 2.5 - 4.8 mg/dL BNP, NT-PRO Result Value Ref Range BNP, NT-Pro 94 <300 pg/mL TROPONIN T, HIGH SENSITIVITY Result Value Ref Range Troponin T, High Sensitivity 75 (H) <=14 ng/L PROCALCITONIN Result Value Ref Range Procalcitonin 1.99 (H) <0.10 ng/mL MRSA SCREEN, PCR Result Value Ref Range MRSA PCR Result Negative Negative PROCALCITONIN Result Value Ref Range Procalcitonin 2.02 (H) <0.10 ng/mL BLOOD GAS, ARTERIAL Result Value Ref Range Temperature 37.0 C pH, Arterial 7.421 7.350 - 7.450 units pCO2, Arterial 66.5 (HH) 35.0 - 45.0 mmHg pO2, Arterial 65.2 (L) 75.0 - 100.0 mmHg Base Excess, Arterial 15.7 (H) -2.0 - 2.0 mmol/L Hemoglobin, Whole Blood 9.6 (L) 12.0 - 15.3 g/dL Oxyhemoglobin, Arterial 88.9 (L) 94.0 - 99.0 % total Hgb Carboxyhemoglobin, Whole Blood 2.7 (H) <=1.5 % total Hgb Methemoglobin, Whole Blood 0.5 <=1.5 % total Hgb Reduced Hemoglobin, Arterial 7.9 (H) 0.0 - 5.0 % total Hgb O2 Content, Arterial 12.1 (L) 15.0 - 24.0 %vol FiO2 Not Provided % O2 Flow, Arterial 5 L/min Bicarbonate, Whole Blood 42.4 (H) 23.0 - 31.0 mmol/L BASIC METABOLIC PANEL Result Value Ref Range BUN 23 (H) 6 - 20 mg/dL Creatinine 1.1 (H) 0.5 - 1.0 mg/dL Estimated Glomerular Filtration Rate 53 (L) >=60 mL/min Sodium 138 135 - 146 mmol/L Potassium 3.4 (L) 3.5 - 5.1 mmol/L Chloride 87 (L) 98 - 107 mmol/L CO2 39 (H) 22 - 32 mmol/L Anion Gap 12 7 - 15 mmol/L Glucose 394 (H) 70 - 120 mg/dL Calcium 8.4 8.4 - 10.2 mg/dL BLOOD GAS, ARTERIAL Result Value Ref Range Temperature 37.0 C pH, Arterial 7.416 7.350 - 7.450 units pCO2, Arterial 62.1 (HH) 35.0 - 45.0 mmHg pO2, Arterial 78.9 75.0 - 100.0 mmHg Base Excess, Arterial 13.0 (H) -2.0 - 2.0 mmol/L Hemoglobin, Whole Blood 9.4 (L) 12.0 - 15.3 g/dL Oxyhemoglobin, Arterial 92.7 (L) 94.0 - 99.0 % total Hgb Carboxyhemoglobin, Whole Blood 2.2 (H) <=1.5 % total Hgb Methemoglobin, Whole Blood 0.5 <=1.5 % total Hgb Reduced Hemoglobin, Arterial 4.6 0.0 - 5.0 % total Hgb O2 Content, Arterial 12.4 (L) 15.0 - 24.0 %vol FiO2 40 % O2 Flow, Arterial Not Provided L/min Bicarbonate, Whole Blood 39.2 (H) 23.0 - 31.0 mmol/L BASIC METABOLIC PANEL Result Value Ref Range BUN 28 (H) 6 - 20 mg/dL Creatinine 1.2 (H) 0.5 - 1.0 mg/dL Estimated Glomerular Filtration Rate 52 (L) >=60 mL/min Sodium 140 135 - 146 mmol/L Potassium 3.7 3.5 - 5.1 mmol/L Chloride 91 (L) 98 - 107 mmol/L CO2 39 (H) 22 - 32 mmol/L Anion Gap 10 7 - 15 mmol/L Glucose 272 (H) 70 - 120 mg/dL Calcium 8.8 8.4 - 10.2 mg/dL CBC Result Value Ref Range WBC 8.07 4.00 - 10.80 K/uL RBC 3.21 3.85 - 5.15 M/uL HGB 9.2 (L) 12.0 - 15.3 g/dL HCT 30.7 (L) 36.0 - 45.2 % MCV 95.6 81.5 - 97.5 fL MCH 28.7 27.0 - 34.0 pg MCHC 30.0 32.0 - 36.0 g/dL RDW 15.8 11.5 - 15.5 % PLT 366 140 - 400 K/uL MPV 9.4 6.6 - 11.1 fL nRBCs 0 <=0 /100 WBCs HEMOGLOBIN A1C Result Value Ref Range Hemoglobin A1C 8.0 (H) 4.0 - 5.6 % Estimated Average Glucose 183 (H) <126 mg/dL BASIC METABOLIC PANEL Result Value Ref Range BUN 32 (H) 6 - 20 mg/dL Creatinine 1.3 (H) 0.5 - 1.0 mg/dL Estimated Glomerular Filtration Rate 44 (L) >=60 mL/min Sodium 140 135 - 146 mmol/L Potassium 3.5 3.5 - 5.1 mmol/L Chloride 92 (L) 98 - 107 mmol/L CO2 39 (H) 22 - 32 mmol/L Anion Gap 9 7 - 15 mmol/L Glucose 149 (H) 70 - 120 mg/dL Calcium 8.3 (L) 8.4 - 10.2 mg/dL CBC Result Value Ref Range WBC 10.48 4.00 - 10.80 K/uL RBC 2.97 3.85 - 5.15 M/uL HGB 9.0 (L) 12.0 - 15.3 g/dL HCT 28.8 (L) 36.0 - 45.2 % MCV 97.0 81.5 - 97.5 fL MCH 30.3 27.0 - 34.0 pg MCHC 31.3 32.0 - 36.0 g/dL RDW 16.8 11.5 - 15.5 % PLT 405 (H) 140 - 400 K/uL MPV 9.3 6.6 - 11.1 fL nRBCs 0 <=0 /100 WBCs BASIC METABOLIC PANEL Result Value Ref Range BUN 28 (H) 6 - 20 mg/dL Creatinine 1.3 (H) 0.5 - 1.0 mg/dL Estimated Glomerular Filtration Rate 46 (L) >=60 mL/min Sodium 144 135 - 146 mmol/L Potassium 3.8 3.5 - 5.1 mmol/L Chloride 95 (L) 98 - 107 mmol/L CO2 40 (H) 22 - 32 mmol/L Anion Gap 9 7 - 15 mmol/L Glucose 110 70 - 120 mg/dL Calcium 8.5 8.4 - 10.2 mg/dL CBC Result Value Ref Range WBC 8.27 4.00 - 10.80 K/uL RBC 3.38 3.85 - 5.15 M/uL HGB 10.1 (L) 12.0 - 15.3 g/dL HCT 33.3 (L) 36.0 - 45.2 % MCV 98.5 81.5 - 97.5 fL MCH 29.9 27.0 - 34.0 pg MCHC 30.3 32.0 - 36.0 g/dL RDW 16.4 11.5 - 15.5 % PLT 413 (H) 140 - 400 K/uL MPV 9.0 6.6 - 11.1 fL nRBCs 0 <=0 /100 WBCs BASIC METABOLIC PANEL Result Value Ref Range BUN 25 (H) 6 - 20 mg/dL Creatinine 1.3 (H) 0.5 - 1.0 mg/dL Estimated Glomerular Filtration Rate 48 (L) >=60 mL/min Sodium 145 135 - 146 mmol/L Potassium 3.4 (L) 3.5 - 5.1 mmol/L Chloride 98 98 - 107 mmol/L CO2 37 (H) 22 - 32 mmol/L Anion Gap 10 7 - 15 mmol/L Glucose 101 70 - 120 mg/dL Calcium 8.4 8.4 - 10.2 mg/dL CBC Result Value Ref Range WBC 8.99 4.00 - 10.80 K/uL RBC 3.23 3.85 - 5.15 M/uL HGB 9.6 (L) 12.0 - 15.3 g/dL HCT 31.4 (L) 36.0 - 45.2 % MCV 97.2 81.5 - 97.5 fL MCH 29.7 27.0 - 34.0 pg MCHC 30.6 32.0 - 36.0 g/dL RDW 15.9 11.5 - 15.5 % PLT 425 (H) 140 - 400 K/uL MPV 9.3 6.6 - 11.1 fL nRBCs 0 <=0 /100 WBCs GLUCOSE METER, POINT OF CARE Result Value Ref Range Glucose Meter 356 (H) 70 - 120 mg/dL GLUCOSE METER, POINT OF CARE Result Value Ref Range Glucose Meter 418 (H) 70 - 120 mg/dL GLUCOSE METER, POINT OF CARE Result Value Ref Range Glucose Meter 479 (H) 70 - 120 mg/dL GLUCOSE METER, POINT OF CARE Result Value Ref Range Glucose Meter 285 (H) 70 - 120 mg/dL GLUCOSE METER, POINT OF CARE Result Value Ref Range Glucose Meter 327 (H) 70 - 120 mg/dL GLUCOSE METER, POINT OF CARE Result Value Ref Range Glucose Meter 258 (H) 70 - 120 mg/dL GLUCOSE METER, POINT OF CARE Result Value Ref Range Glucose Meter 246 (H) 70 - 120 mg/dL GLUCOSE METER, POINT OF CARE Result Value Ref Range Glucose Meter 139 (H) 70 - 120 mg/dL GLUCOSE METER, POINT OF CARE Result Value Ref Range Glucose Meter 253 (H) 70 - 120 mg/dL GLUCOSE METER, POINT OF CARE Result Value Ref Range Glucose Meter 208 (H) 70 - 120 mg/dL GLUCOSE METER, POINT OF CARE Result Value Ref Range Glucose Meter 215 (H) 70 - 120 mg/dL GLUCOSE METER, POINT OF CARE Result Value Ref Range Glucose Meter 108 70 - 120 mg/dL GLUCOSE METER, POINT OF CARE Result Value Ref Range Glucose Meter 218 (H) 70 - 120 mg/dL GLUCOSE METER, POINT OF CARE Result Value Ref Range Glucose Meter 204 (H) 70 - 120 mg/dL GLUCOSE METER, POINT OF CARE Result Value Ref Range Glucose Meter 129 (H) 70 - 120 mg/dL GLUCOSE METER, POINT OF CARE Result Value Ref Range Glucose Meter 107 70 - 120 mg/dL *Note: Due to a large number of results and/or encounters for the requested time period, some results have not been displayed. A complete set of results can be found in Results Review. CT PULMONARY EMBOLUS W CONTRAST Final Result PROCEDURE INFORMATION: Exam: CTA Chest With Contrast Exam date and time: 12/19/2023 2:41 PM Age: 63 years old Clinical indication: Other: Shortness of breath, lower extremity swelling/calf pain, elevated d-dimer, elevated cardiac enzymes TECHNIQUE: Imaging protocol: Computed tomographic angiography of [...] clinical indication); or iterative reconstruction. Contrast material: OPTIRAY 350; Contrast volume: 100 ml; Contrast route: INTRAVENOUS (IV); COMPARISON: 1. CT PULMONARY EMBOLUS W 09/17/2022 4:[address] CHEST WO CONTRAST 09/09/2023 1:20 PM FINDINGS: Pulmonary arteries: Evaluation for pulmonary [...] changes in the spine. Soft tissues: Unremarkable. IMPRESSION IMPRESSION: Evaluation for pulmonary embolism is limited by bolus timing and motion degradation. No evidence of pulmonary embolism to the level of the segmental arteries. COMMENTS: The presence of pulmonary emphysema on CT is an independent risk factor for lung cancer. In the absence of a history or active diagnosis of lung cancer, it is recommended that this patient with emphysema be evaluated for enrollment in a low dose CT lung cancer screening program. THIS DOCUMENT HAS BEEN ELECTRONICALLY SIGNED BY RADHA HUGHES MD XR CHEST 2 VIEWS Final Result PROCEDURE INFORMATION: Exam: XR Chest Exam date and time: 12/19/2023 1:45 PM Age: 63 years old Clinical indication: Other: SOB, weakness; Additional info: Chest pain TECHNIQUE: Imaging protocol: Radiologic exam of the chest. Views: 2 views. COMPARISON: 1. CT CHEST WO CONTRAST 09/09/2023 1:20 PM 2. DX XR CHEST 1 VIEW 09/08/2023 12:03 PM FINDINGS: Lungs: No evidence of focal consolidation. Pleural spaces: No evidence of pleural effusion or pneumothorax. Heart/Mediastinum: Stable cardiomediastinal silhouette. Bones/joints: Postoperative changes of the bilateral clavicles. New para grafts IMPRESSION IMPRESSION: No evidence of acute abnormality. THIS DOCUMENT HAS BEEN ELECTRONICALLY SIGNED BY RADHA HUGHES MD [facility] DUPLEX VENOUS LE BILAT Final Result VASCULAR LAB RESULTS DATE OF EXAM: 12/19/23 PRESENTING CONDITIONS: Leg pain, hip pain, SOB Immediately before proceeding with the vascular lab procedure reported below, the identity of the patient, the correct exam and the correct procedural site were verified. PHYSICIAN REPORT: Lower Extremity Venous Duplex Examination Color flow Doppler, spectral analysis, and transducer compression techniques were applied during this ultrasound image examination. RIGHT LOWER EXTREMITY On duplex examination, the right common femoral vein, the sapheno-femoral junction, the femoral vein in the thigh and popliteal vein are all free of internal echoes and demonstrate normal transducer compressibility during oakley scale imaging and normal respiratory and augmentation response during Doppler interrogation. The posterior tibial veins and peroneal veins demonstrate no evidence of thrombosis. LEFT LOWER EXTREMITY On duplex examination, the left common femoral vein, the sapheno-femoral junction, the femoral vein in the thigh, and popliteal vein are all free of internal echoes and demonstrate normal transducer compressibility during oakley scale imaging and normal respiratory and augmentation response during Doppler interrogation. The posterior tibial veins and peroneal veins demonstrate no evidence of thrombosis. IMPRESSION: Right lower extremity with no evidence of acute deep venous thrombosis. Left lower extremity with no evidence of acute deep venous thrombosis. Results Pending at Discharge: Lab Results Pending at Discharge: BASIC METABOLIC PANEL Routine CBC Routine CULTURE, RESPIRATORY, LOWER, AEROBIC Routine MEDICATION UPDATES AT DISCHARGE CONTINUE taking these medications but follow up with your Primary Care Physician (PCP). INSTRUCTIONS Acetaminophen 500 MG Tablet Commonly known as: Tylenol Notes to patient: Used to treat pain, fever Take 1 Tablet by mouth every 6 hours as needed. * Albuterol Sulfate (2.5 MG/3ML) 0.083% nebulizer solution Commonly known as: Proventil Notes to patient: Used to treat wheezing, shortness of breath Inhale 1 Vial via nebulizer every 4 hours as needed for Wheezing or Shortness of Breath. * albuterol HFA 108 (90 BASE) MCG/ACT inhaler Notes to patient: Used to treat wheezing, shortness of breath Take 2 puffs every four hours as need for shortness of breath or wheezing Azelastine 0.1 % nasal spray Commonly known as: Astelin Notes to patient: used to relieve nasal symptoms such as runny/itching/stuffy nose, sneezing, and post-nasal drip Administer 1 [place] into nostril in the morning and 1 [place] before bedtime. Azithromycin 500 MG Tablet Commonly known as: Zithromax Notes to patient: Used to treat infection Take 1 Tablet by mouth once a day on Sunday, Sunday, and Sunday only. buPROPion XL 300 MG Tb24 Commonly known as: Wellbutrin XL Notes to patient: Used to treat depression Take 1 Tablet by mouth in the morning. Cetirizine HCl 10 MG Capsule Notes to patient: Used to treat allergies Take 1 Capsule by mouth at bedtime. Eliquis 5 MG Tablet Generic drug: Apixaban Notes to patient: Used to prevent blood clots take 1 tablet by mouth every morning and at bedtime Empagliflozin 10 MG Tabs Commonly known as: Jardiance Notes to patient: Used to treat diabetes Take 1 Tablet by mouth in the morning. escitalopram 20 MG Tablet Commonly known as: Lexapro Notes to patient: Used to treat depression and anxiety Take 1 Tablet by mouth in the morning. In the morning.. fluticasone 50 MCG/ACT nasal spray Commonly known as: Flonase Notes to patient: Used to treat allergic nasal symptoms Administer into each nostril 2 Sprays in the morning. Furosemide 80 MG Tablet Commonly known as: Lasix Take 1 Tablet by mouth in the morning and 1 Tablet before bedtime. Gabapentin 600 MG Tablet Commonly known as: Neurontin Notes to patient: Used to treat nerve pain Take 1 Tablet by mouth in the morning and 1 Tablet before bedtime. melatonin 3 MG Tablet Notes to patient: Used as sleep aid Take 1 Tablet by mouth at bedtime. MetFORMIN 1000 MG Tablet Commonly known as: Glucophage Notes to patient: Used to treat diabetes Take 1 Tablet by mouth 2 times a day with morning and evening meals. oxygen Gas 2 LPM at bedtime & at rest & 3 LPM with all exertion via n/c DX J 44.9 Potassium Chloride 20 MEQ packet Notes to patient: Potassium supplement Take 20 mEq by mouth in the morning. predniSONE 20 MG Tabs Tablet Commonly known as: Deltasone Notes to patient: Used to treat inflammation Take 2 tablets daily for 5 days, followed by 1 tablet daily for 5 days. Roflumilast 500 MCG Tablet Commonly known as: Daliresp Notes to patient: Used to treat asthma and COPD Take by mouth 1 Tablet in the morning. rOPINIRole 2 MG Tablet Commonly known as: Requip Notes to patient: Used to treat parkinsons disease Take by mouth 1 Tablet in the morning AND 1 Tablet before bedtime. rosuvastatin 20 MG Tablet Commonly known as: Crestor Notes to patient: Used to treat high cholesterol Take by mouth 1 Tablet in the morning. traZODone 100 MG Tablet Commonly known as: Desyrel Notes to patient: Used to treat depression Take by mouth 1 Tablet before bedtime. TRELEGY ellipta 100-62.5-25 MCG/ACT Aepb Generic drug: Vznzavovpgz-Izruuhzhujzu-Lracgdxmrj Notes to patient: Used to treat COPD Inhale 1 Puff by mouth in the morning. Vitamin D3 50 MCG (1999 UT) Capsule Notes to patient: Vitamin D supplement Take 1 Capsule by mouth in the morning. * This list has 2 medication(s) that are the same as other medications prescribed for you. Read thedirections carefully, and ask your doctor or other care provider to review them with you. SCHEDULED FOLLOW-UP: Future Appointments Appt Date/Time Provider Department 06/18/2024 7:40 AM Piper Cazares DO [facility] 07/14/2024 1:00 PM [facility], Pulm Function Room 1 Pulmonary Function Lab, [facility] 07/14/2024 2:00 PM [facility], Pulm Function Room 2 Pulmonary Function Lab, [facility] 07/23/2024 3:20 PM Chance Zimmerman MD Pulmonary Medicine [facility] Other Information Indwelling Devices: LINES ALL Duration Peripheral Line Right Antecubital 20 Gauge 3 days Vital Signs (last recorded): Most Recent Systolic BP: 106 mmHg (12/23/23 0740) Most Recent Diastolic BP: 50 mmHg (12/23/23 0740) Pulse: 81 (12/23/23 0740) Resp: 26 (12/23/23739) Most Recent Temperature: 36.56 C (12/23/23739) Weight: 89.4 kg (197 lb) (12/23/23602) SpO2: 95 % (12/23/23739) O2 flow rate: 4 L/MIN (12/23/23602) Allergies: Honey bee venom protein [bee venom], Hydrocortisone, and Cortisone Activity: as tolerated Diet: cardiac diet and diabetic diet Code Status: Limited Code Condition on Discharge: stable Isolation status: None Cognition: normal HOSPITAL CONSULTS ORDERED: THORACIC MEDICINE / PULMONOLOGY CONSULT IP ADULT PHYSICAL THERAPY CONSULT IP ADULT OCCUPATIONAL THERAPY CONSULT IP CARE MANAGEMENT CONSULT IP ADULT SPEECH THERAPY CONSULT IP (ACUTE CARE REHAB) REFERRING PHYSICIAN: Ref: [id number]] NO STREET ADDRESS AVAILABLE None (office) None (fax) PRIMARY CARE PROVIDER: PCP: Marcos Gamble PA-C [id number] [facility] / [place] [phone] (office) [phone] (fax) Note: To contact a physician responsible for this patients hospital care, please call [employer] [phone]. I certify this patient is confined to the home and needs intermittent half-way care, physical therapy and/or speech therapy, or continues to need occupational therapy. The patient is under my care and I have authorized services on this plan of care. The clinical findings of decrease in functional mobility secondary to decreased strength, decreased balance, and decreased endurance due to recent hospitalization and overall medical condition support the need for home health, and the patientdemonstrates a considerable and taxing effort when attempting to leave the home. The patient had a [id number] encounter with an allowed provider type on 12/23/23 and the encounter was related to the primary reason for home health care. Under situations in which I am an acute/post acute facility physician who will not be following the patient's plan of care, I authorized services on this plan of care and I transfer the patient for plan of care certification to the primary care physician named below who will follow the patient and update the plan of care. Primary care physician Marcos Gamble PA-C I spent a total of 36 minutes coordinating, documenting, and providing care for this patient excluding time spent in the performance of separately billed services. documented in this encounter Discharge Instructions * Discharge Instr - AVS* Jesse Thurston DO - 12/23/2023 9:31 AM EST Discharge Date: 12/23/23 The information below provides you with the [...] for any questions or test results: Call [phone] For after-hours concerns: Call [phone] and have your provider paged, or the provider director decision support for the Department of Hospital Medicine paged. [...] you can go to your local [facility] or Urgent Care Clinic during their business hours. In an EMERGENCY situation: Call [phone] or go to the nearest emergency room. A BRIEF SUMMARY OF YOUR HOSPITAL STAY: You came to the hospital with: complaint of shortness of breath, leg pain Your main diagnosis at discharge was: Acute on chronic respiratory failure with hypoxia and hypercapnia due to COPD exacerbation Operations & Procedures performed: none Complications: none significant Inpatient test results that are pending at discharge: none Advance Directive Documented: Advance Directive Does the Patient have an Advance Directive? No YOUR FOLLOW UP APPOINTMENTS: Primary Care Provider Information: PCP: Marcos Gamble PA-C [id number] [facility] / [place] [phone] (office) [phone] (fax) An appointment was requested with your PCP (Marcos Gamble PA-C) within 7 days. (Please take this form to this visit with your primary care physician.) You need the following studies in the future: none INSTRUCTIONS: Diet: Carbohydrate-controlled diet, Heart healthy diet Activity: No restrictions Additional Instructions: documented in this encounter Progress Notes * Heri Kemp MD - 12/22/2023 8:21 AM EST Images from the original note were not included. [facility] 3B-3012/W INTERVAL HISTORY: Pt is a 63 year old female, with a PMH of COPD (4L O2 at baseline), tobacco use disorder, CHF, DM, who presented to the ED with increasing shortness of breath and was admitted for acute on chronic respiratory failure with hypoxia and hypercapnia. No overnight events. She has been using her BiPAP in the daytime. While she was confused earlier, possibly due to hypercapnic altered mental status, her overall mentation has improved since she beganusing the BiPAP more regularly. Today, she is doing well and is A&O x3 and has no complaints. She is on her baseline oxygen of 4 L. Objective Physical Exam Most Recent Vital Signs: BP: 106 mmHg/52 mmHg (12/22/23 0737) Pulse: 84 (12/22/23 0802) Temp: 36.56 C (12/22/23 0700) Temp Summary: Temp Min: 36.1 C (96.9 F) Max: 36.7 C (98.1 F) SpO2: 90 % (12/22/23801) O2 flow rate: 4 L/MIN (12/22/23801) Supplemental O2 Delivery: Nasal Cannula (12/22/23801) Physical Exam Constitutional: Appearance: She is well-developed. HENT: Head: Normocephalic. Eyes: Extraocular Movements: Extraocular movements intact. Cardiovascular: Rate and Rhythm: Normal rate and regular rhythm. Pulmonary: Effort: Pulmonary effort is normal. No respiratory distress. Breath sounds: Normal breath sounds. No decreased breath sounds, wheezing or rhonchi. Abdominal: General: Bowel sounds are normal. Palpations: Abdomen is soft. Musculoskeletal: General: Normal range of motion. Cervical back: Normal range of motion and neck supple. Skin: General: Skin is warm and dry. Neurological: General: No focal deficit present. Mental Status: She is alert and oriented to person, place, and time. Psychiatric: Mood and Affect: Mood normal. Behavior: Behavior normal. Peripheral Line Right Antecubital 20 Gauge (Active) Number of days: 3 STUDIES: Encounter Orders Labs and other studies reviewed with pertinent findings noted below: Lab results within last 7 days (see chart for full results) Units 12/22/23 0746 12/21/23 0755 12/20/23 0503 12/19/23 1236 WBC K/uL 8.27 10.48 8.07 8.02 RBC M/uL 3.38 2.97 3.21 3.39 HGB g/dL 10.1* 9.0* 9.2* 10.2* HCT % 33.3* 28.8* 30.7* 32.9* PLT K/uL 413* 405* 366 374 Lab results within last 7 days (see chart for full results) Units 12/22/23 0746 12/21/23 0755 12/20/23 0503 12/19/23 1734 12/19/23 1236 Sodium mmol/L 144 140 140 138 141 Potassium mmol/L 3.8 3.5 3.7 3.4* 2.7* Chloride mmol/L 95* 92* 91* 87* 87* CO2 mmol/L 40* 39* 39* 39* 42* BUN mg/dL 28* 32* 28* 23* 24* Creatinine mg/dL 1.3* 1.3* 1.2* 1.1* 1.2* Glucose mg/dL 110 149* 272* 394* 240* Calcium mg/dL 8.5 8.3* 8.8 8.4 8.9 Magnesium mg/dL -- -- -- -- 1.9 Lab results within last 7 days (see chart for full results) Units 12/19/23 1236 Protein g/dL 6.6 Bilirubin, Total mg/dL 0.3 Alkaline Phosphatase U/L 120 AST U/L 20 ALT U/L 12 No imaging results in the last 24 hours Assessment and Plan IMPRESSION : Principal Problem: Acute on chronic respiratory failure with hypoxia and hypercapnia (HCC) Active Problems: Recurrent major depressive disorder, in partial remission (HCC) COPD exacerbation (HCC) Chronic diastolic heart failure (HCC) Chronic hypoxemic respiratory failure (HCC) Tobacco use disorder Personal history of pulmonary embolism Type 2 diabetes mellitus with stage 3a chronic kidney disease, without long-term current use of insulin (HCC) Bilateral lower extremity edema COPD, group D, by GOLD 2017 classification (HCC) Chronic anticoagulation Pain in both lower legs Acute metabolic encephalopathy Resolved Problems: * No resolved hospital problems. * DIFFERENTIAL AND PLAN: Pt is a 63 year old female, with a PMH of COPD (4L O2 at baseline), tobacco use disorder, CHF, DM, who presented to the ED with increasing shortness of breath and was admitted for acute on chronic respiratory failure with hypoxia and hypercapnia. Pt was initially placed on ceftriaxone and azithromycin but after reviewing CXR and CT PE showing no evidence of consolidation or infiltrate, ceftriaxone was discontinued and she was just treated on azithromycin alone for COPD exacerbation. She was seen by pulm, who recommended attempting to switchfrom solumedrol to PO prednisone. Will switch to prednisone 40mg today. Seen by PT, AMPAC Score with Stairs - 17. Also seen by speech, who deemed her swallowing to be functional and no therapy needed. Today, pt appears to have improved significantly since we put her on BiPAP in the daytime for a fewhours. She was a bit confused yesterday, for which she called her daughter and informed her. Calleddaughter today and explained reason for her confusion and discharge planning. Acute on chronic respiratory failure with hypoxia and hypercapnia/COPD exacerbation - Azithromycin 500mg daily day 4 - Prednisone 40mg daily (switched from Methylprednisolone 40mg) - Trelegy Ellipta - Daliresp 500 mcg daily - O2 supplementation at 4L NC - Pulmonary following Recurrent major depressive disorder, in partial remission - Bupropion 150mg - Lexapro 20mg daily - Trazadone 100mg Chronic diastolic heart failure - Jardiance 10mg daily - Lasix 80mg BID Tobacco use disorder - Nicoderm 14mg/24hr patch daily - Smoking cessation encouraged Personal history of pulmonary embolism - Eliquis 5mg BID Leg pain/Restless Leg Syndrome - Gabapentin 600mg BID - Ropinirole 2mg BID - Tylenol 975mg TID Type 2 diabetes mellitus with stage 3a chronic kidney disease, without long-term current use of insulin - Monitoring glucose levels PHARMACOLOGIC VTE PROPHYLAXIS: Apixaban Eliquis Tabs CODE STATUS: Limited Code EXPECTED DISCHARGE DATE: 12/23/2023 Patient was seen, was examined, and was discussed with Dr. Thurston. Heri Kemp MD PGY-2 Associated attestation - Jesse Thurston DO - 12/22/2023 1:38 PM EST I saw and evaluated the patient today. I have reviewed the trainee note and agree. 73-year-old woman with PMH severe COPD, chronic respiratory failure (4L), tobacco use disorder, PE/DVT, restless leg presenting with worsening shortness of breath and hypoxia while on baseline supplemental oxygen. Admitted for acute on chronic respiratory failure with hypoxia hypercarbia in the setting of COPD exacerbation and possible OHS. General: No acute distress CV: RRR with no murmur Chest: Normal respiratory effort. No wheezing or rhonchi. Abdomen: Normal bowel sounds, soft and nontender Neuro: Alert and oriented x3 - Appreciate pulmonary input - continue to encourage patient to use BiPAP as much as possible. She is currently on 4 L which is her baseline. States she is close to her baseline. - continue [employer] inhalers. - CXR and CT PE were reviewed previously and there was no evidence of consolidation or infiltrate. Sputum culture pending. Continue azithromycin for COPD exacerbation - transition to prednisone 40 mg daily - continue [employer] Lasix - evaluated by speech. Note reviewed. - PT/OT/care management - sliding scale insulin adjusted for steroids. I spent a total of 32 minutes coordinating, documenting, and providing care for this patient excluding time spent in the performance of separately billed services. * Heri Kemp MD - 12/21/2023 12:23 PM EST Images from the original note were not included. [facility] 3B-3012/W INTERVAL HISTORY: Pt is a 63 year old female, with a PMH of COPD (4L O2 at baseline), tobacco use disorder, CHF, DM, who presented to the ED with increasing shortness of breath and was admitted for acute on chronic respiratory failure with hypoxia and hypercapnia. No overnight events. Pt has respiratory distress but has not been wearing her BiPAP because she says it causes her to have restless leg syndrome. Objective Physical Exam Most Recent Vital Signs: BP: 116 mmHg/50 mmHg (12/21/23 1154) Pulse: 92 (12/21/23 1154) Temp: 36.5 C (12/21/23 1154) Temp Summary: Temp Min: 36.5 C (97.7 F) Max: 36.8 C (98.2 F) SpO2: 91 % (12/21/23 1154) O2 flow rate: 4 L/MIN (12/21/23 1154) Supplemental O2 Delivery: Nasal Cannula (12/21/23 115) Physical Exam Constitutional: Appearance: She is well-developed. HENT: Head: Normocephalic. Eyes: Extraocular Movements: Extraocular movements intact. Cardiovascular: Rate and Rhythm: Normal rate and regular rhythm. Pulmonary: Effort: Pulmonary effort is normal. No respiratory distress. Breath sounds: Normal breath sounds. No decreased breath sounds, wheezing or rhonchi. Abdominal: General: Bowel sounds are normal. Palpations: Abdomen is soft. Musculoskeletal: General: Normal range of motion. Cervical back: Normal range of motion and neck supple. Skin: General: Skin is warm and dry. Neurological: General: No focal deficit present. Mental Status: She is alert and oriented to person, place, and time. Psychiatric: Mood and Affect: Mood normal. Behavior: Behavior normal. Peripheral Line Right;Upper (Active) Number of days: 2 STUDIES: Encounter Orders Labs and other studies reviewed with pertinent findings noted below: Lab results within last 7 days (see chart for full results) Units 12/21/23 0755 12/20/23 0503 12/19/23 1236 WBC K/uL 10.48 8.07 8.02 RBC M/uL 2.97 3.21 3.39 HGB g/dL 9.0* 9.2* 10.2* HCT % 28.8* 30.7* 32.9* PLT K/uL 405* 366 374 Lab results within last 7 days (see chart for full results) Units 12/21/23 0755 12/20/23 0503 12/19/23 1734 12/19/23 1236 Sodium mmol/L 140 140 138 141 Potassium mmol/L 3.5 3.7 3.4* 2.7* Chloride mmol/L 92* 91* 87* 87* CO2 mmol/L 39* 39* 39* 42* BUN mg/dL 32* 28* 23* 24* Creatinine mg/dL 1.3* 1.2* 1.1* 1.2* Glucose mg/dL 149* 272* 394* 240* Calcium mg/dL 8.3* 8.8 8.4 8.9 Magnesium mg/dL -- -- -- 1.9 Lab results within last 7 days (see chart for full results) Units 12/19/23 1236 Protein g/dL 6.6 Bilirubin, Total mg/dL 0.3 Alkaline Phosphatase U/L 120 AST U/L 20 ALT U/L 12 No imaging results in the last 24 hours Assessment and Plan IMPRESSION : Principal Problem: Acute on chronic respiratory failure with hypoxia and hypercapnia (HCC) Active Problems: Recurrent major depressive disorder, in partial remission (HCC) COPD exacerbation (HCC) Chronic diastolic heart failure (HCC) Chronic hypoxemic respiratory failure (HCC) Tobacco use disorder Personal history of pulmonary embolism Type 2 diabetes mellitus with stage 3a chronic kidney disease, without long-term current use of insulin (HCC) Bilateral lower extremity edema COPD, group D, by GOLD 2017 classification (HCC) Chronic anticoagulation Pain in both lower legs Acute metabolic encephalopathy Resolved Problems: * No resolved hospital problems. * DIFFERENTIAL AND PLAN: Pt is a 63 year old female, with a PMH of COPD (4L O2 at baseline), tobacco use disorder, CHF, DM, who presented to the ED with increasing shortness of breath and was admitted for acute on chronic respiratory failure with hypoxia and hypercapnia. Pt was initially placed on ceftriaxone and azithromycin but after reviewing CXR and CT PE showing no evidence of consolidation or infiltrate, ceftriaxone was discontinued and she was just treated on azithromycin alone for COPD exacerbation. She was seen by pulm, who recommended attempting to switchfrom solumedrol to PO prednisone. Seen by PT, [facility] Score with Stairs - 16. Also seen by speech, who deemed her swallowing to be functional and no therapy needed. Today, pt appears to have respiratory distress and her CO2 is still elevated and she is still hesitant to restart her BiPAP due to her thinking a causes restless leg syndrome. We will put patient on BiPAP in the daytime for a few hours and see how she does with that. Yesterday lasix was held due topt's HTN but will restart today. Acute on chronic respiratory failure with hypoxia and hypercapnia/COPD exacerbation - Azithromycin 500mg daily - Methylprednisolone 40mg daily - will transition to prednisone soon - Trelegy Ellipta - Daliresp 500 mcg daily - O2 supplementation - Pulmonary following Recurrent major depressive disorder, in partial remission - Bupropion 150mg - Lexapro 20mg daily - Trazadone 100mg Chronic diastolic heart failure - Jardiance 10mg daily - Lasix 80mg BID Tobacco use disorder - Nicoderm 14mg/24hr patch daily - Smoking cessation encouraged Personal history of pulmonary embolism - Eliquis 5mg BID Leg pain/Restless Leg Syndrome - Gabapentin 600mg BID - Tylenol 975mg TID Type 2 diabetes mellitus with stage 3a chronic kidney disease, without long-term current use of insulin - Monitoring glucose levels PHARMACOLOGIC VTE PROPHYLAXIS: Apixaban Eliquis Tabs CODE STATUS: Limited Code EXPECTED DISCHARGE DATE: 12/24/2023 Patient was seen, was examined, and was discussed with Dr. Thurston. Heri Kemp MD PGY-2 Associated attestation - Jesse Thurston DO - 12/21/2023 1:11 PM EST I saw and evaluated the patient today. I have reviewed the trainee note and agree. 73-year-old woman with PMH severe COPD, chronic respiratory failure (4L), tobacco use disorder, PE/DVT, restless leg presenting with worsening shortness of breath and hypoxia while on baseline supplemental oxygen. Admitted for acute on chronic respiratory failure with hypoxia hypercarbia in the setting of COPD exacerbation and possible OHS. General: No acute distress CV: RRR with no murmur Chest: Normal respiratory effort. No wheezing or rhonchi. Abdomen: Normal bowel sounds, soft and nontender Neuro: Alert and oriented x3 - Appreciate pulmonary input - developed some confusion overnight. BiPAP was attempted but patient was only able to wear for limited time before going back on 6 L nasal cannula. Currently down to 4 L this morning. I was able to convince patient to wear BiPAP during the day for least a few hours. We will continue the encourage BiPAP when patient is sleeping. - continue [employer] inhalers. - CXR and CT PE were reviewed previously and there was no evidence of consolidation or infiltrate. Sputum culture pending. Continue azithromycin for COPD exacerbation - continue Solu-Medrol 40 mg daily. Hopefully can transitioned to prednisone starting 2/3. - patient's blood pressure continues to be on the lower side. Her home Lasix had to be held today. - evaluated by speech. Note reviewed. - PT/OT/care management - sliding scale insulin adjusted for steroids. I spent a total of 38 minutes coordinating, documenting, and providing care for this patient excluding time spent in the performance of separately billed services. * Jesse Thurston DO - 12/20/2023 1:04 PM EST Images from the original note were not included. [facility] 3B-3012/W INTERVAL HISTORY: 73-year-old woman with PMH severe COPD, chronic respiratory failure (4L), tobacco use disorder, PE/DVT, restless leg presenting with worsening shortness of breath and hypoxia while on baseline supplemental oxygen. Admitted for acute on chronic respiratory failure with hypoxia hypercarbia in the setting of COPD exacerbation and possible OHS. Subjective: Patient evaluated this morning. States she feels a little bit better. She still coughs but states this is at her baseline. Denies chest pain, nausea, vomiting or diarrhea. Objective Physical Exam Most Recent Vital Signs: BP: 122 mmHg/52 mmHg (12/20/23 1140) Pulse: 107 (12/20/23 1140) Temp: 37.06 C (12/20/23 1140) Temp Summary: Temp Min: 36 C (96.8 F) Max: 37.1 C (98.7 F) SpO2: 91 % (12/20/23 1140) O2 flow rate: 6 L/MIN (12/20/23 1029) Supplemental O2 Delivery: Nasal Cannula (12/20/23 1140) Constitutional: (+) chronically ill, (+) tired CV: normal rate, normal rhythm, no murmur Chest: normal respiratory effort, (+) significantly diminished breath sounds bilaterally. No wheezing or crackles. Abdomen: normal: soft, bowel sounds normal, no masses, tenderness or organomegaly Extremities: no clubbing, cyanosis, or edema, otherwise grossly normal, warm, and dry Skin: warm, dry, intact: Neuro: alert, oriented to person, place, and time Peripheral Line Right;Upper (Active) Number of days: 1 STUDIES: Encounter Orders Labs and other studies reviewed with pertinent findings noted below: Results for orders placed or performed during the hospital encounter of 12/19/23 COMPREHENSIVE METABOLIC PANEL Result Value Ref Range BUN 24 (H) 6 - 20 mg/dL Creatinine 1.2 (H) 0.5 - 1.0 mg/dL Estimated Glomerular Filtration Rate 49 (L) >=60 mL/min Sodium 141 135 - 146 mmol/L Potassium 2.7 (L) 3.5 - 5.1 mmol/L Chloride 87 (L) 98 - 107 mmol/L CO2 42 (H) 22 - 32 mmol/L Anion Gap 12 7 - 15 mmol/L Glucose 240 (H) 70 - 120 mg/dL Albumin 3.8 3.8 - 5.0 g/dL AST 20 10 - 35 U/L Alkaline Phosphatase 120 35 - 130 U/L Bilirubin, Total 0.3 <=1.2 mg/dL Calcium 8.9 8.4 - 10.2 mg/dL Protein 6.6 6.0 - 8.3 g/dL ALT 12 10 - 35 U/L BNP, NT-PRO Result Value Ref Range BNP, NT-Pro 94 <300 pg/mL TROPONIN T, HIGH SENSITIVITY Result Value Ref Range Troponin T, High Sensitivity 84 (H) <=14 ng/L PT INR Result Value Ref Range Prothrombin Time 13.3 11.6 - 15.2 seconds INR 1.0 0.8 - 1.2 RESPIRATORY PATHOGEN PANEL, PCR [...] Negative CBC Result Value Ref Range WBC 8.02 4.00 - 10.80 K/uL RBC 3.39 3.85 - 5.15 M/uL HGB 10.2 (L) 12.0 - 15.3 g/dL HCT 32.9 (L) 36.0 - 45.2 % MCV 97.1 81.5 - 97.5 fL MCH 30.1 27.0 - 34.0 pg MCHC 31.0 32.0 - 36.0 g/dL RDW 16.4 11.5 - 15.5 % PLT 374 140 - 400 K/uL MPV 9.3 6.6 - 11.1 fL nRBCs 0 <=0 /100 WBCs DIFFERENTIAL, AUTOMATED Result Value Ref Range WBC 8.02 4.00 - 10.80 K/uL Neutrophils % 78.3 (H) 40.0 - 75.0 % Lymphocytes % 12.3 (L) 18.0 - 42.0 % Monocytes % 6.9 1.0 - 11.0 % Eosinophils % 1.9 0.0 - 6.0 % Basophils % 0.1 0.0 - 2.0 % Immature Granulocytes % 0.5 0.0 - 2.0 % Absolute Neutrophils 6.28 1.80 - 7.70 K/uL Absolute Lymphocytes 0.99 (L) 1.00 - 4.80 K/ul Absolute Monocytes 0.55 0.00 - 1.10 K/uL Absolute Eosinophils 0.15 0.00 - 0.70 K/uL Absolute Basophils 0.01 0.00 - 0.20 K/uL Absolute Immature Granulocytes 0.04 0.00 - 0.20 K/uL BLOOD GAS, VENOUS Result Value Ref Range Temperature 37.0 C pH, Venous 7.421 7.320 - 7.430 units pCO2, Venous 73.0 (H) 40.0 - 60.0 mmHg pO2, Venous 29.7 25.0 - 50.0 mmHg Base Excess, Venous 19.1 (H) -2.0 - 2.0 mmol/L Hemoglobin, Whole Blood 9.9 (L) 12.0 - 15.3 g/dL Oxyhemoglobin, Venous 45.0 40.0 - 85.0 % total Hgb Carboxyhemoglobin, Whole Blood 2.2 (H) <=1.5 % total Hgb Methemoglobin, Whole Blood 0.9 <=1.5 % total Hgb Reduced Hemoglobin, Venous 51.9 % total Hgb O2 Content, Venous 6.3 (L) 7.0 - 18.0 %vol Bicarbonate, Whole Blood 46.6 (H) 23.0 - 31.0 mmol/L D-DIMER Result Value Ref Range D-Dimer 1.11 (H) <0.50 ug/mL FEU MAGNESIUM Result Value Ref Range Magnesium 1.9 1.5 - 2.6 mg/dL PHOSPHORUS Result Value Ref Range Phosphorus 2.6 2.5 - 4.8 mg/dL BNP, NT-PRO Result Value Ref Range BNP, NT-Pro 94 <300 pg/mL TROPONIN T, HIGH SENSITIVITY Result Value Ref Range Troponin T, High Sensitivity 75 (H) <=14 ng/L PROCALCITONIN Result Value Ref Range Procalcitonin 1.99 (H) <0.10 ng/mL MRSA SCREEN, PCR Result Value Ref Range MRSA PCR Result Negative Negative PROCALCITONIN Result Value Ref Range Procalcitonin 2.02 (H) <0.10 ng/mL BLOOD GAS, ARTERIAL Result Value Ref Range Temperature 37.0 C pH, Arterial 7.421 7.350 - 7.450 units pCO2, Arterial 66.5 (HH) 35.0 - 45.0 mmHg pO2, Arterial 65.2 (L) 75.0 - 100.0 mmHg Base Excess, Arterial 15.7 (H) -2.0 - 2.0 mmol/L Hemoglobin, Whole Blood 9.6 (L) 12.0 - 15.3 g/dL Oxyhemoglobin, Arterial 88.9 (L) 94.0 - 99.0 % total Hgb Carboxyhemoglobin, Whole Blood 2.7 (H) <=1.5 % total Hgb Methemoglobin, Whole Blood 0.5 <=1.5 % total Hgb Reduced Hemoglobin, Arterial 7.9 (H) 0.0 - 5.0 % total Hgb O2 Content, Arterial 12.1 (L) 15.0 - 24.0 %vol FiO2 Not Provided % O2 Flow, Arterial 5 L/min Bicarbonate, Whole Blood 42.4 (H) 23.0 - 31.0 mmol/L BASIC METABOLIC PANEL Result Value Ref Range BUN 23 (H) 6 - 20 mg/dL Creatinine 1.1 (H) 0.5 - 1.0 mg/dL Estimated Glomerular Filtration Rate 53 (L) >=60 mL/min Sodium 138 135 - 146 mmol/L Potassium 3.4 (L) 3.5 - 5.1 mmol/L Chloride 87 (L) 98 - 107 mmol/L CO2 39 (H) 22 - 32 mmol/L Anion Gap 12 7 - 15 mmol/L Glucose 394 (H) 70 - 120 mg/dL Calcium 8.4 8.4 - 10.2 mg/dL BLOOD GAS, ARTERIAL Result Value Ref Range Temperature 37.0 C pH, Arterial 7.416 7.350 - 7.450 units pCO2, Arterial 62.1 (HH) 35.0 - 45.0 mmHg pO2, Arterial 78.9 75.0 - 100.0 mmHg Base Excess, Arterial 13.0 (H) -2.0 - 2.0 mmol/L Hemoglobin, Whole Blood 9.4 (L) 12.0 - 15.3 g/dL Oxyhemoglobin, Arterial 92.7 (L) 94.0 - 99.0 % total Hgb Carboxyhemoglobin, Whole Blood 2.2 (H) <=1.5 % total Hgb Methemoglobin, Whole Blood 0.5 <=1.5 % total Hgb Reduced Hemoglobin, Arterial 4.6 0.0 - 5.0 % total Hgb O2 Content, Arterial 12.4 (L) 15.0 - 24.0 %vol FiO2 40 % O2 Flow, Arterial Not Provided L/min Bicarbonate, Whole Blood 39.2 (H) 23.0 - 31.0 mmol/L BASIC METABOLIC PANEL Result Value Ref Range BUN 28 (H) 6 - 20 mg/dL Creatinine 1.2 (H) 0.5 - 1.0 mg/dL Estimated Glomerular Filtration Rate 52 (L) >=60 mL/min Sodium 140 135 - 146 mmol/L Potassium 3.7 3.5 - 5.1 mmol/L Chloride 91 (L) 98 - 107 mmol/L CO2 39 (H) 22 - 32 mmol/L Anion Gap 10 7 - 15 mmol/L Glucose 272 (H) 70 - 120 mg/dL Calcium 8.8 8.4 - 10.2 mg/dL CBC Result Value Ref Range WBC 8.07 4.00 - 10.80 K/uL RBC 3.21 3.85 - 5.15 M/uL HGB 9.2 (L) 12.0 - 15.3 g/dL HCT 30.7 (L) 36.0 - 45.2 % MCV 95.6 81.5 - 97.5 fL MCH 28.7 27.0 - 34.0 pg MCHC 30.0 32.0 - 36.0 g/dL RDW 15.8 11.5 - 15.5 % PLT 366 140 - 400 K/uL MPV 9.4 6.6 - 11.1 fL nRBCs 0 <=0 /100 WBCs GLUCOSE METER, POINT OF CARE Result Value Ref Range Glucose Meter 356 (H) 70 - 120 mg/dL GLUCOSE METER, POINT OF CARE Result Value Ref Range Glucose Meter 418 (H) 70 - 120 mg/dL GLUCOSE METER, POINT OF CARE Result Value Ref Range Glucose Meter 479 (H) 70 - 120 mg/dL GLUCOSE METER, POINT OF CARE Result Value Ref Range Glucose Meter 285 (H) 70 - 120 mg/dL GLUCOSE METER, POINT OF CARE Result Value Ref Range Glucose Meter 327 (H) 70 - 120 mg/dL *Note: Due to a large number of results and/or encounters for the requested time period, some results have not been displayed. A complete set of results can be found in Results Review. CT PULMONARY EMBOLUS W CONTRAST Final Result PROCEDURE INFORMATION: Exam: CTA Chest With Contrast Exam date and time: 12/19/2023 2:41 PM Age: 63 years old Clinical indication: Other: Shortness of breath, lower extremity swelling/calf pain, elevated d-dimer, elevated cardiac enzymes TECHNIQUE: Imaging protocol: Computed tomographic angiography of [...] clinical indication); or iterative reconstruction. Contrast material: OPTIRAY 350; Contrast volume: 100 ml; Contrast route: INTRAVENOUS (IV); COMPARISON: 1. CT PULMONARY EMBOLUS W 09/17/2022 4:[address] CHEST WO CONTRAST 09/09/2023 1:20 PM FINDINGS: Pulmonary arteries: Evaluation for pulmonary [...] changes in the spine. Soft tissues: Unremarkable. IMPRESSION IMPRESSION: Evaluation for pulmonary embolism is limited by bolus timing and motion degradation. No evidence of pulmonary embolism to the level of the segmental arteries. COMMENTS: The presence of pulmonary emphysema on CT is an independent risk factor for lung cancer. In the absence of a history or active diagnosis of lung cancer, it is recommended that this patient with emphysema be evaluated for enrollment in a low dose CT lung cancer screening program. THIS DOCUMENT HAS BEEN ELECTRONICALLY SIGNED BY RADHA HUGHES MD XR CHEST 2 VIEWS Final Result PROCEDURE INFORMATION: Exam: XR Chest Exam date and time: 12/19/2023 1:45 PM Age: 63 years old Clinical indication: Other: SOB, weakness; Additional info: Chest pain TECHNIQUE: Imaging protocol: Radiologic exam of the chest. Views: 2 views. COMPARISON: 1. CT CHEST WO CONTRAST 09/09/2023 1:20 PM 2. DX XR CHEST 1 VIEW 09/08/2023 12:03 PM FINDINGS: Lungs: No evidence of focal consolidation. Pleural spaces: No evidence of pleural effusion or pneumothorax. Heart/Mediastinum: Stable cardiomediastinal silhouette. Bones/joints: Postoperative changes of the bilateral clavicles. New para grafts IMPRESSION IMPRESSION: No evidence of acute abnormality. THIS DOCUMENT HAS BEEN ELECTRONICALLY SIGNED BY RADHA HUGHES MD [facility] D[facility] VENOUS LE BILAT Final Result VASCULAR LAB RESULTS DATE OF EXAM: 12/19/23 PRESENTING CONDITIONS: Leg pain, hip pain, SOB Immediately before proceeding with the vascular lab procedure reported below, the identity of the patient, the correct exam and the correct procedural site were verified. PHYSICIAN REPORT: Lower Extremity Venous Duplex Examination Color flow Doppler, spectral analysis, and transducer compression techniques were applied during this ultrasound image examination. RIGHT LOWER EXTREMITY On duplex examination, the right common femoral vein, the sapheno-femoral junction, the femoral vein in the thigh and popliteal vein are all free of internal echoes and demonstrate normal transducer compressibility during oakley scale imaging and normal respiratory and augmentation response during Doppler interrogation. The posterior tibial veins and peroneal veins demonstrate no evidence of thrombosis. LEFT LOWER EXTREMITY On duplex examination, the left common femoral vein, the sapheno-femoral junction, the femoral vein in the thigh, and popliteal vein are all free of internal echoes and demonstrate normal transducer compressibility during oakley scale imaging and normal respiratory and augmentation response during Doppler interrogation. The posterior tibial veins and peroneal veins demonstrate no evidence of thrombosis. IMPRESSION: Right lower extremity with no evidence of acute deep venous thrombosis. Left lower extremity with no evidence of acute deep venous thrombosis. Assessment and Plan IMPRESSION : Principal Problem: Acute on chronic respiratory failure with hypoxia and hypercapnia ([facility]) Active Problems: Recurrent major depressive disorder, in partial remission ([facility]) COPD exacerbation ([facility]) Chronic diastolic heart failure ([facility]) Chronic hypoxemic respiratory failure ([facility]) Tobacco use disorder Personal history of pulmonary embolism Type 2 diabetes mellitus with stage 3a chronic kidney disease, without long-term current use of insulin ([facility]) Bilateral lower extremity edema COPD, group D, by GOLD 2017 classification ([facility]) Chronic anticoagulation Pain in both lower legs Acute metabolic encephalopathy Resolved Problems: * No resolved hospital problems. * DIFFERENTIAL AND PLAN: - Appreciate pulmonary input. - per Pulmonary note, patient had previously qualified for BiPAP last year but it was returned to [facility] due to patient not meeting use compliance. Patient states this is due to having restless legs which kept her up all night making it difficult for her to wear the BiPAP. - patient able to be weaned off BiPAP. Currently on 6 L nasal cannula. - patient was started on CTX and azithromycin due to elevated procalcitonin and concern pneumonia. I reviewed CXR and CT PE, no focal consolidation or infiltrate. Will discontinue ceftriaxone and continue azithromycin for COPD exacerbation. - continue Solu-Medrol 40 mg daily for now. Hope to transitioned to p.o. prednisone in the next 1-2days. - patient's [employer] Lasix had to be held due to low blood pressure. We will continue to monitor and restart as indicated. - encourage BiPAP use when sleeping. - continue rest of [employer] inhalers. - continue [employer] medications - monitor patient while eating. States she has coughing spells while eating. Speech therapy - smoking cessation encouraged - PT/OT - care management - labs reviewed. Continue to monitor renal function. - patient is on steroids. Elevation in her blood sugar and WBCs suspected. We will continue to monitor. PHARMACOLOGIC VTE PROPHYLAXIS: Apixaban Eliquis Tabs CODE STATUS: Limited Code EXPECTED DISCHARGE DATE: 12/24/2023 I spent a total of 50 minutes coordinating, documenting, and providing care for this patient excluding time spent in the performance of separately billed services. * Paris Khan RN - 12/19/2023 5:47 PM EST .Dual Licensed Skin Assessment completed by Paris Patiño RN and Jelena Fragoso RN. The patient is/has a N/A Skin Breakdown (includes non blanchable erythema): No * Paris Khan RN - 12/19/2023 5:46 PM EST 1700: Pt arrived to room via W/C. Ambulated to bedside x 1 assist. Pt c/o SOB with exertion. Pt oriented to room and call logan. Bed alarm on. * Paris Khan RN - 12/19/2023 5:46 PM EST Provider Ju notified of pt's elevated BSBS of 356 via TT. See new order for an additional 6 units of novolog to be given. Provider also notified of pt c/o of 6/10 pain. Per provider give tylenol and give gabapentin early. documented in this encounter H&P Notes * Annette Rodrigez CRNP - 12/19/2023 3:39 PM EST Images from the original note were not included. [facility] 12/ PRESENTING PROBLEM: SOB, bilat hip/leg pain HPI: 63 year old female with PMH significant for severe COPD, chronic respiratory failure with hypoxia for which she wears 3-4 liters NC at all times, CHF who presented to the ED for increased SOB. Patient reports that for the past few days she has been wheezing, home inhalers and HFN provided little relief. + cough productive at times for white sputum. Denies fever or chills. Denies rhinitis or sore throat. Denies chest pain or palpitations. Denies n/v, abd pain, constipation, or diarrhea. Denies dysuria, urgency, or frequency. Chronic bilat LE edema but notes that she has been having whatshe describes as intermittent "sharp pains" in her hips and legs for approximately 3 weeks without reflief to date. Notes that the pain is causing her not to sleep at times too especially over the past few days. Denies any recent falls or injuries. Denies any previous back/spine or leg issues. In ED, note to have low grade temp and SpO2 89% on her usual 4 liters NC. Normotensive, + tachypneaand resting tachycardia. VBG with pH 7.421, pO2 29.7, pCO2 73 (56.9-77.9 in past). Initial with repeat 75 (baseline 19-48), BNP 94, [...] trachea. , bilat LE vascular duplex negative Subjective Patient's past history, medications, and allergies were reviewed. Objective Physical Exam Most Recent Vital Signs: BP: 110 mmHg/56 mmHg (12/19/23 1600) Pulse: 97 (12/19/23 1600) Temp: 37.22 C (12/19/23 1202) Temp Summary: Temp Min: 37.2 C (99 F) Max: 37.2 C (99 F) SpO2: 96 % (12/19/23 1600) O2 flow rate: 5 L/MIN (12/19/23 1600) Supplemental O2 Delivery: Nasal Cannula (12/19/23 1600) Wt Readings from Last 3 Encounters: 12/19/23 90.7 kg (200 lb) 11/22/23 89.4 kg (197 lb 3.2 oz) 10/15/23 86.2 kg (190 lb) General: supine on liter in ED with HOB elevated, in no acute distress, continuous albuterol HFN on Psych: pleasant, cooperative, good eye contact Neuro: drowsy, oriented X 3, fluent speech; moves all extremities without difficulty, follows simple commands Eye Exam: Conjunctiva are pink and non-injected, sclera clear, no xanthelasma Ears: External ears normal; [place] Oropharynx: mucous membranes moist Heart: regular rate & rhythm, no murmurs, and no gallops Lungs: course left base, diminished right base, faint expiratory wheezing right base wheezing, no rales, no rhonchi, respirations even and unlabored, no use of accessory muscles, no retractions Abdomen: abdomen soft, non-tender, normal bowel sounds in all 4 quadrants, and no rebound or guarding Back: No CVA tenderness, no tenderness to palpation Extremities: +1 bilat LE edema; no bilat calf tenderness, no clubbing, no cyanosis, capillary refill < 3 seconds; diffuse tenderness bilat LE with palpation; + equal sensation intact bilat LE MSK: 2-3/5 bilat LE and UE strength, able to lift bilat LE off liter approximately 15-20 degrees Integumentary: [place], warm, dry; no significant rashes or lesions STUDIES: Encounter Orders Labs and other studies reviewed with pertinent findings noted below: Results for orders placed or performed during the hospital encounter of 12/19/23 COMPREHENSIVE METABOLIC PANEL Result Value Ref Range BUN 24 (H) 6 - 20 mg/dL Creatinine 1.2 (H) 0.5 - 1.0 mg/dL Estimated Glomerular Filtration Rate 49 (L) >=60 mL/min Sodium 141 135 - 146 mmol/L Potassium 2.7 (L) 3.5 - 5.1 mmol/L Chloride 87 (L) 98 - 107 mmol/L CO2 42 (H) 22 - 32 mmol/L Anion Gap 12 7 - 15 mmol/L Glucose 240 (H) 70 - 120 mg/dL Albumin 3.8 3.8 - 5.0 g/dL AST 20 10 - 35 U/L Alkaline Phosphatase 120 35 - 130 U/L Bilirubin, Total 0.3 <=1.2 mg/dL Calcium 8.9 8.4 - 10.2 mg/dL Protein 6.6 6.0 - 8.3 g/dL ALT 12 10 - 35 U/L BNP, NT-PRO Result Value Ref Range BNP, NT-Pro 94 <300 pg/mL TROPONIN T, HIGH SENSITIVITY Result Value Ref Range Troponin T, High Sensitivity 84 (H) <=14 ng/L PT INR Result Value Ref Range Prothrombin Time 13.3 11.6 - 15.2 seconds INR 1.0 0.8 - 1.2 RESPIRATORY PATHOGEN PANEL, PCR [...] Negative CBC Result Value Ref Range WBC 8.02 4.00 - 10.80 K/uL RBC 3.39 3.85 - 5.15 M/uL HGB 10.2 (L) 12.0 - 15.3 g/dL HCT 32.9 (L) 36.0 - 45.2 % MCV 97.1 81.5 - 97.5 fL MCH 30.1 27.0 - 34.0 pg MCHC 31.0 32.0 - 36.0 g/dL RDW 16.4 11.5 - 15.5 % PLT 374 140 - 400 K/uL MPV 9.3 6.6 - 11.1 fL nRBCs 0 <=0 /100 WBCs DIFFERENTIAL, AUTOMATED Result Value Ref Range WBC 8.02 4.00 - 10.80 K/uL Neutrophils % 78.3 (H) 40.0 - 75.0 % Lymphocytes % 12.3 (L) 18.0 - 42.0 % Monocytes % 6.9 1.0 - 11.0 % Eosinophils % 1.9 0.0 - 6.0 % Basophils % 0.1 0.0 - 2.0 % Immature Granulocytes % 0.5 0.0 - 2.0 % Absolute Neutrophils 6.28 1.80 - 7.70 K/uL Absolute Lymphocytes 0.99 (L) 1.00 - 4.80 K/ul Absolute Monocytes 0.55 0.00 - 1.10 K/uL Absolute Eosinophils 0.15 0.00 - 0.70 K/uL Absolute Basophils 0.01 0.00 - 0.20 K/uL Absolute Immature Granulocytes 0.04 0.00 - 0.20 K/uL BLOOD GAS, VENOUS Result Value Ref Range Temperature 37.0 C pH, Venous 7.421 7.320 - 7.430 units pCO2, Venous 73.0 (H) 40.0 - 60.0 mmHg pO2, Venous 29.7 25.0 - 50.0 mmHg Base Excess, Venous 19.1 (H) -2.0 - 2.0 mmol/L Hemoglobin, Whole Blood 9.9 (L) 12.0 - 15.3 g/dL Oxyhemoglobin, Venous 45.0 40.0 - 85.0 % total Hgb Carboxyhemoglobin, Whole Blood 2.2 (H) <=1.5 % total Hgb Methemoglobin, Whole Blood 0.9 <=1.5 % total Hgb Reduced Hemoglobin, Venous 51.9 % total Hgb O2 Content, Venous 6.3 (L) 7.0 - 18.0 %vol Bicarbonate, Whole Blood 46.6 (H) 23.0 - 31.0 mmol/L D-DIMER Result Value Ref Range D-Dimer 1.11 (H) <0.50 ug/mL FEU MAGNESIUM Result Value Ref Range Magnesium 1.9 1.5 - 2.6 mg/dL PHOSPHORUS Result Value Ref Range Phosphorus 2.6 2.5 - 4.8 mg/dL BNP, NT-PRO Result Value Ref Range BNP, NT-Pro 94 <300 pg/mL TROPONIN T, HIGH SENSITIVITY Result Value Ref Range Troponin T, High Sensitivity 75 (H) <=14 ng/L *Note: Due to a large number of results and/or encounters for the requested time period, some results have not been displayed. A complete set of results can be found in Results Review. VASC DUPLEX VENOUS LE BILAT Result Date: 12/19/2023 : Right lower extremity with no evidence of acute deep venous thrombosis. Left lower extremity withno evidence of acute deep venous thrombosis. CT PULMONARY EMBOLUS W CONTRAST Result Date: 12/19/2023 IMPRESSION: Evaluation for pulmonary embolism is limited by bolus timing and motion degradation. Noevidence of pulmonary embolism to the level of the segmental arteries. COMMENTS: The presence of pulmonary emphysema on CT is an independent risk factor for lung cancer. In the absence of a history or active diagnosis of lung cancer, it is recommended that this patient with emphysema be evaluated for enrollment in a low dose CT lung cancer screening program. THIS DOCUMENT HAS BEEN ELECTRONICALLY SIGNED BY RADHA HUGHES MD XR CHEST 2 VIEWS Result Date: 12/19/2023 IMPRESSION: No evidence of acute abnormality. THIS DOCUMENT HAS BEEN ELECTRONICALLY SIGNED BY RADHA HUGHES MD ECHO 10/30/2023: EF 65% without wall motion abnormalities, mild RV pressure increase to 40 mm Hg, mild tricuspid regurgitation, trivial pericardial effusion. EKG in ED 12/19/2023 interpreted by NSR with PVCs, QTc 449 Assessment and Plan IMPRESSION: Principal Problem: COPD exacerbation (HCC) Active Problems: Recurrent major depressive disorder, in partial remission (HCC) Chronic diastolic heart failure (HCC) Chronic hypoxemic respiratory failure (HCC) Tobacco use disorder Personal history of pulmonary embolism Type 2 diabetes mellitus with stage 3a chronic kidney disease, without long-term current use of insulin (HCC) Bilateral lower extremity edema COPD, group D, by GOLD 2017 classification (HCC) Chronic anticoagulation Pain in both lower legs Resolved Problems: * No resolved hospital problems. * DIFFERENTIAL AND PLAN: COPD exacerbation (HCC) COPD, group D, by GOLD 2017 classification (HCC) Solumedrol 40 mg IV BID Acetylcysteine 600 mg BID Albuterol HFN QID Azithromcyin 500 mg PO daily X 5 days starting tonight -- if is unclear if she is taking this TID as noted/ordered earlier this month Check procalcitonin -- if elevated, may consider escalation of abx coverage -- update this is 2.02 so will also cover with ceftriaxone 1 gram IV Q24 X 5 days Continue [employer] cetirizine 10 mg QHS, fluticasone 2 sprays in each nostril daily, Trelegy, daliresp 500 mcg daily Flutter therapy and incentive spirometry Pulmonary consult MRSA screen Sputum culture if she is able to provide one Chronic hypoxemic respiratory failure (HCC) Has had hypercapnic failure in the past as well, drowsy during exam, VBG completed in ED -- check ABG and need for BiPAP which she has required on previous admissions Titrate supplemental oxygen as indicated with notation that baseline she requires 4 liters NC Tobacco use disorder Continue to encourage cessation -- no cigarettes X 15 days! Nicotine replacement therapy -- patient requested Recurrent major depressive disorder, in partial remission (HCC) Continue [employer] buproprion, escitalopram, trazodone Chronic diastolic heart failure ([facility]) Daily weight monitoring Continue [employer] furosemide 80 mg BID Type 2 diabetes mellitus with stage 3a chronic kidney disease, without long-term current use of insulin ([facility]) Hold home metformin during admission Continue [employer] empaglifozin 10 mg daily Routine and PRN accu checks with Novolog sliding scale coverage Bilateral lower extremity edema Continue daily weight monitoring and [employer] furosemide dosing Chronic anticoagulation Personal history of pulmonary embolism No evidence of PE on CT today but limited study Continue [employer] Eliquis 5 mg PO BID -- patient reports she is compliant with her medications and has not missed any doses Continue [employer] gabapentin 600 mg PO BID Bilateral LE pain APAP 975 mg PO TID -- evaluate if effective for her reported bilat LE leg pain Continue [employer] requip 2 mg BID Hypokalemia K+ supplementation 40 meq PO X 1 provided in ED Recheck BMP at 1800 today and replace as indicated For now, continue [employer] KCl 20 meq PO daily Continue all other [employer] medications as ordered: Vitamin D 2000 units daily Rosuvastatin 20 mg daily Repeat labs in AM: CBC, BMP, A1C PHARMACOLOGIC VTE PROPHYLAXIS:Apixaban Eliquis Tabs CODE STATUS: Limited Code EXPECTED DISCHARGE DATE: > 2 days 90 minutes spent on admission of this patient which included evaluation of the patient and available records, coordination of care with ED, coordination of care with primary hospitalist Dr Dodd, and coordination of care with nursing. Annette Rodrigez, AMY, GRAVITY PROSPECTING SUPERVISOR, ANP-C, CNE Associated attestation - Hermilo Dodd DO - 12/19/2023 5:48 PM EST I have reviewed the advanced practitioner's documentation on the date of service referenced in note, and I agree with, and take responsibility for the plan of care. I spent a total of 20 minutes coordinating, documenting, and providing care for this patient excluding time spent in the performance of separately billed services or time spent by another provider/QHP. Patient seen at bedside while still in ED. Somewhat drowsy. States she does feel a little bit better. Denies any chest pain. Agree with ABG, results reviewed, pCO2 elevated. Consistent with hypercarbic and hypoxic respiratory failure most likely due to COPD, obesity hypoventilatory syndrome. Start BiPAP Follow ABG Procalcitonin also elevated significantly. Increase antibiotic coverage add Rocephin Plan of care discussed with Elia and as detailed below. documented in this encounter Procedure Notes * Coretta Callaway DO - 12/19/2023 12:27 PM ESTAssociated Order(s): EKG REASON FOR STUDY: SOB CONCLUSIONS: Sinus rhythm with occasional Premature ventricular complexes Biatrial enlargement Possible Anterior infarct , age undetermined Abnormal ECG When compared with ECG of 08-SEP-2023 11:51, Premature ventricular complexes are now Present Ventricular Rate: 96 Atrial Rate: 96 RI Interval: 148 QRS Duration: 82 QT/QTc: 356/449 ms P-R-T Yeoman: 78 : 60 : 52 degrees documented in this encounter Consult Notes * Tasia Puckett CCC-GAME FARM SUPERVISOR - 12/20/2023 3:15 PM ESTAssociated Order(s): ADULT SPEECH THERAPY CONSULT IP (ACUTE CARE REHAB) CLINICAL BEDSIDE SWALLOW EVALUATION - Speech-Language Pathology [facility]-[address] [address] Name: Edna Kebede Location: [facility] [id number]-[id number] Date: 12/20/2023 Time: 3:53 PM Patient Status: Inpatient Insurance: Payor: HUMANA MEDICARE ADVANTAGE / Plan: HUMANA CHOICE PPO / Product Type: *No Product type* / GENERAL INFORMATION: Admission Date: 12/19/2023 Referring Physician: Marek Berger PA-C Pertinent Medical History: Per H&P: PRESENTING PROBLEM: SOB, bilat hip/leg pain HPI: 63 year old female with PMH significant for severe COPD, chronic respiratory failure with hypoxia for which she wears 3-4 liters NC at all times, CHF who presented to the ED for increased SOB. Patient reports that for the past few days she has been wheezing, home inhalers and HFN provided little relief. + cough productive at times for white sputum. Denies fever or chills. Denies rhinitis or sore throat. Denies chest pain or palpitations. Denies n/v, abd pain, constipation, or diarrhea. Denies dysuria, urgency, or frequency. Chronic bilat LE edema but notes that she has been having whatshe describes as intermittent "sharp pains" in her hips and legs for approximately 3 weeks without reflief to date. Notes that the pain is causing her not to sleep at times too especially over the past few days. Denies any recent falls or injuries. Denies any previous back/spine or leg issues. In ED, note to have low grade temp and SpO2 89% on her usual 4 liters NC. Normotensive, + tachypneaand resting tachycardia. VBG with pH 7.421, pO2 29.7, pCO2 73 (56.9-77.9 in past). Initial with repeat 75 (baseline 19-48), BNP 94, [...] trachea. , bilat LE vascular duplex negative Current Diet/Dysphagia History: Currently on regular diet, thin liquids. Patient indicated no difficulty swallowing with foods or liquids. When asked about telling the pulmonology staff about difficulty swallowing foods, she indicated she thought they were talking about something else. The patient does report some shortness of breath during meals, also reports with exertion. When asked what she does if she is short of breath at mealtime, she indicated she stops eating. She reports no problems with heartburn or indigestion. She does endorse some difficulty with taking large pills, reports gagging. She indicated her pill dysphagia is long-standing. Cognitive-Communication: Followed basic directions with occasional need for repetition. Able to verbalize needs. Did demonstrate some confusion with me, calling out for her boyfriend. I had to explain to her twice that she is in a hospital and he is not in the next room. After the second explanation, she demonstrated understanding of that. Barriers to Learning: Sporadic confusion. Hearing Acuity: Within functional limits Best Learning Method: Multimodal Pain: No complaints of pain ORAL MECHANISM EXAM: Facial Symmetry Within functional limits Labial Function Within functional limits Lingual Function Within functional limits Velar Function Within functional limits Dentition: Edentulous PROTECTIVE MECHANISMS: Volitional Swallow Within Functional Limits Volitional Throat Clearing Within Functional Limits Volitional Cough Within Functional Limits, but patient does indicate difficulty with coughing and clearing phlegm at home. Vocal Quality Within Functional Limits Tracheostomy Tube: Not Present Ventilator Status: Not Applicable SWALLOWING FUNCTION: The following consistencies were evaluated: Water via straw sips, pudding, cookie. ORAL PREPARATION PHASE: Slowed mastication with cookie, but not unexpected given lack of dentition. Able to self-present all items. No oral loss. ORAL PHASE: Adequate. PHARYNGEAL PHASE: Timely swallow with all items. No overt clinical signs of difficulty. RECOMMENDATIONS/PLAN: Videofluoroscopy: Not indicated Diet Level: Regular Liquid Level: Thin Presentation of Medication: As tolerated, if patient continues to report gagging with large pills, we could discuss the possibility of having pills if allowable. Positioning: Seated with 90 hip flexion Level of Supervision: None Use of Straws: allowed Compensatory Techniques to be Utilized During PO Intake: Small Bites/Sips and Slow Rate of Intake Compensatory Strategies Utilized: Continue to utilize breaks if feeling short of breath with intake. Additional findings: none ANTICIPATED FREQUENCY (ON EVAL): No therapy needs. DIAGNOSIS/IMPRESSIONS: Diagnosis/Impressions: Functional swallow. Rehab Potential: na TREATMENT PLAN: Swallowing Treatment: Not Indicated Treatment Goals: na Additional Recommendations: none The above information was discussed with the patient. Yes The patient was in Agreement * Marek Berger PA-C - 12/20/2023 11:54 AM ESTAssociated Order(s): THORACIC MEDICINE / PULMONOLOGY CONSULT IP CONSULT - Thoracic / Pulmonary Medicine [facility]-[address] [facility] [place] [address] Name: Edna Kebede Location: [facility] 3B-3012/W Date: 12/20/2023 Time: 11:55 AM REQUESTING SERVICE: Hospitalist REASON FOR CONSULT: [facility] COPD HISTORY OF PRESENT ILLNESS: Patient is a 63-year-old female known to the Pulmonary Clinic with past medical history significantfor very severe COPD (FEV1 38%), chronic respiratory failure, tobacco use disorder, history of PE and DVT and restless legs syndrome who presented to the ED with worsening shortness of breath. She was hypoxic on her baseline oxygen. Viral panel negative, ABG showed CO2 retention and patient was significantly lethargic and placed on BiPAP. CT PE was negative for thrombus, no evidence of pneumonia,some debris noted in trachea. Procalcitonin mildly elevated at 1.99 and patient was started on antibiotics and IV steroids. On exam this morning patient reports feeling slightly better than when she came in but remains short of breath. She has occasional cough which is at baseline. She reports feeling cold. She denies chest pain, fever or chills, nausea, vomiting, diarrhea. Patient previously qualified for BiPAP after hospital admission last year, but BiPAP was returned to the [facility] due to not meeting use compliance. She reports that her restless leg symptoms keep her up at night and made it difficult to wear the BiPAP. Lately has been having significant cramping and sharp pains in her legs throughout the day. She is smoking 6-7 cigarettes per day on average. Denies alcohol use. She endorses coughing while eating. PAST MEDICAL HISTORY: Past Medical History: Diagnosis Date Acute deep vein thrombosis (DVT) of right peroneal vein (HCC) 09/26/2021 02/28/14 Pulmonary note. (Z86.718) History of DVT (deep vein thrombosis) Right peroneal DVT seen on duplex on 09/15/21. Multiple PEs and hospitalized from 09/14/21 to 09/21/21. Provoked? 6 months, still on blood thinners? Acute pulmonary embolism without acute cor pulmonale ([facility]) 12/02/2021 02/28/22 Pulmonary note Pt hospitalized from 09/14/21 to 09/21/21 with bilateral subsegmental PE, 1stunprovoked PE Allergic rhinitis 11/17/2013 Anxiety 11/17/2013 B12 deficiency 11/17/2013 Benzodiazepine abuse, episodic ([facility]) 05/21/2018 Chronic diastolic heart failure ([facility]) 02/28/2021 Chronic hypoxemic respiratory failure ([facility]) 04/21/2021 Chronic sinusitis 07/22/2014 COPD (chronic obstructive pulmonary disease) ([facility]) COPD, group D, by GOLD 2017 classification ([facility]) 03/29/2020 Nearing end-stage Per COPD GOLD Classification COPD, severity to be determined ([facility]) 11/17/2013 Cor pulmonale, chronic ([facility]) 03/08/2022 Depression 11/17/2013 DJD (degenerative joint [...] kidney disease ([facility]) 04/14/2021 Hypertensive heart and kidney disease with chronic diastolic congestive heart failure and stage 3a chronic kidney disease ([facility]) 2023-11-22 Adding I13.0, I50.32, N18.31-Hypertensive heart and kidney disease with chronic diastolic congestive heart failure and stage 3a chronic kidney disease ([facility]) Dx to History Hypokalemia 07/26/2022 Insomnia 02/03/2022 Lumbar degenerative disc disease 08/26/2019 Pain down the L4-5 nerve root on the right. Migraine without aura and without status migrainosus, not intractable 01/24/2017 left side. Morbid (severe) obesity due to excess calories ([facility]) 06/16/2022 Other pulmonary embolism without acute cor pulmonale ([facility]) 12/02/2021 02/28/22 Pulmonary note Pt hospitalized [...] use disorder 04/21/2021 Vitamin D deficiency 11/17/2013 PAST SURGICAL HISTORY: Past Surgical History: Procedure Laterality Date ABD WALL HERNIA REPAIR, LAP, REDUCIBLE CARPAL TUNNEL SURGERY Bilateral DENTAL SURGERY PROCEDURE NEC 2004 All teeth removed INJECT DX/THER SUBSTANCE INTERLAMINAR LUMBAR/SACRAL W IMAGE GUIDE Right 09/16/2019 INJECTION SPINE LUMBAR OR SACRAL performed by Fawn Vee MD at OR [facility] INJECT DX/THER SUBSTANCE INTERLAMINAR LUMBAR/SACRAL W IMAGE GUIDE N/A 09/17/2020 INJECTION SPINE LUMBAR OR SACRAL performed by Katie Plunkett MD at OR [facility] LIGATE/CUT OVIDUCT(S) LUMBAR / SACRAL EPIDURAL, ADD'L LEVEL Right 10/06/2019 INJECTION TRANSFORAMINAL EPIDURAL LUMBAR OR SACRAL ADDITIONAL performed by Fawn Vee MD at [facility] LUMBAR / SACRAL EPIDURAL, SINGLE LEVEL Right 10/06/2019 INJECTION TRANSFORAMINAL EPIDURAL LUMBAR OR SACRAL performed by Fawn Vee MD at OR [facility] REMOVE GALLBLADDER 2011 REPAIR RUPTURED ROTATOR CUFF, CHRON Bilateral FAMILY HISTORY: Family History Problem Relation Age of Onset Alcohol and Other Disorders Associated Mother Emphysema Mother No Known Problems Father Hyperlipidemia Sister Arthritis Sister Hyperlipidemia Sister Immunodeficiency Daughter On gammaglobulin replacement therapy No Known Problems Brother (Half) No Known Problems Sister (Half) Suicide attempts Sister (Half) 30 SOCIAL HISTORY: Social History Tobacco Use Smoking status: Former Packs/day: 1.00 Years: 50.00 Additional pack years: 0.00 Total pack years: 50.00 Types: Cigarettes Quit date: 11/28/2023 Years since quittin.0 Passive exposure: Past Smokeless tobacco: Never Vaping Use Vaping Use: Never used Substance Use Topics Alcohol use: No Drug use: No ALLERGIES: Honey bee venom protein [bee venom], Hydrocortisone, and Cortisone Current Outpatient Medications Medication Instructions Acetaminophen (TYLENOL) 500 mg, Oral, Q6H PRN Albuterol Sulfate (PROVENTIL) 2.5 mg, Nebulizer, Q4H PRN Albuterol Sulfate HFA 108 (90 Base) MCG/ACT Inhalation Aerosol Solution Take 2 puffs every four hours as need for shortness of breath or wheezing Azelastine HCl 0.1 % Nasal Solution (Astelin) 1 [place], Nasal, BID (.AM/PM) Azithromycin (ZITHROMAX) 500 mg, Oral, MWF buPROPion XL (WELLBUTRIN XL) 300 mg, Oral, Daily(AM) Cetirizine HCl 10 mg, Oral, HS Eliquis 5 MG Oral Tablet take 1 tablet by mouth every morning and at bedtime Empagliflozin (JARDIANCE) 10 mg, Oral, Daily(AM) escitalopram (LEXAPRO) 20 mg, Oral, Daily(AM), In the morning. Fluticasone Propionate 50 MCG/ACT Nasal Suspension (Flonase) 2 Sprays, Each Nostril, Daily(AM) Furosemide (LASIX) 80 mg, Oral, BID (.AM/PM) Gabapentin (NEURONTIN) 600 mg, Oral, BID (.AM/PM) melatonin 3 mg, Oral, HS MetFORMIN (GLUCOPHAGE) 1,000 mg, Oral, BID (AM/PM MEALS) oxygen IN GAS 2 LPM at bedtime & at rest & 3 LPM with all exertion via n/c DX J 44.9 Potassium Chloride 20 MEQ Oral Packet 20 mEq, Oral, Daily(AM) predniSONE 20 MG Oral Tablet (Deltasone) Take 2 tablets daily for 5 days, followed by 1 tablet daily for 5 days. Roflumilast (DALIRESP) 500 mcg, Oral, Daily(AM) rOPINIRole (REQUIP) 2 mg, Oral, BID (.AM/PM) rosuvastatin (CRESTOR) 20 mg, Oral, Daily(AM) traZODone (DESYREL) 100 mg, Oral, HS Trelegy Ellipta 100-62.5-25 MCG/ACT Aerosol Powder Breath Activated (Bymosczckui-Dimzvvixqyng-Souwisfuli) 1 Puff, Inhalation, Daily(AM) Vitamin D3 2,000 Units, Oral, Daily(AM) ROS: See HPI PHYSICAL EXAMINATION: Most Recent Vital Signs: BP: 122 mmHg/52 mmHg (12/20/231139) Pulse: 107 (12/20/231139) Temp: 37.06 C (12/20/231139) Temp Summary: Temp Min: 36 C (96.8 F) Max: 37.2 C (99 F) SpO2: 91 % (12/20/231139) O2 flow rate: 6 L/MIN (12/20/23 102) Supplemental O2 Delivery: Nasal Cannula (12/20/231139) O2 Mode: O2 %: O2 %: 40 % (12/20/23215) O2 Flow Rate: O2 flow rate: 6 L/MIN (12/20/231028) IPAP: IPAP: 10 cmH2O (12/20/23215) CPAP/EPAP: CPAP/EPAP Settings: 5 CMH2O (12/20/23215) Vital Signs Last 24 Hours: Systolic BP: Most Recent Systolic BP Av.4 mmHg Min: 96 mmHg Max: 124 mmHg Temperature: Most Recent Temperature Av.7 C Min: 36 C Max: 37.22 C Pulse: Pulse Av.8 Min: 87 Max: 107 Respirations: Resp Av.7 Min: 16 Max: 92 SpO2: SpO2 Av.7 % Min: 88 % Max: 98 % Constitutional: (+) chronically ill, appears drowsy/tired HEENT: normal: normocephalic, atraumatic; no masses, tenderness, or adenopathy, nasal cannula in place CV: distant heart sounds, no murmur Chest: normal respiratory effort, severely diminished breath sounds, no w/r/r Extremities: no clubbing, cyanosis, or edema, otherwise grossly normal, warm, and dry Skin: warm, dry, intact Neuro: alert, oriented to person, place, and time LABS: Labs reviewed as indicated below: Latest Reference Range & Units 12/19/23 20:40 pH, Arterial 7.350 - 7.450 units 7.416 pCO2, Arterial 35.0 - 45.0 mmHg 62.1 (HH) pO2, Arterial 75.0 - 100.0 mmHg 78.9 O2 Content, Arterial 15.0 - 24.0 %vol 12.4 (L) O2 Flow, Arterial L/min Not Provided Base Excess, Arterial -2.0 - 2.0 mmol/L 13.0 (H) Reduced Hemoglobin, Arterial 0.0 - 5.0 % total Hgb 4.6 Temperature C 37.0 Oxyhemoglobin, Arterial 94.0 - 99.0 % total Hgb 92.7 (L) FiO2 % 40 Carboxyhemoglobin, Whole Blood <=1.5 % total Hgb 2.2 (H) Methemoglobin, Whole Blood <=1.5 % total Hgb 0.5 Bicarbonate, Whole Blood 23.0 - 31.0 mmol/L 39.2 (H) Latest Reference Range & Units 12/20/23 05:03 Sodium 135 - 146 mmol/L 140 Potassium 3.5 - 5.1 mmol/L 3.7 Chloride 98 - 107 mmol/L 91 (L) CO2 22 - 32 mmol/L 39 (H) BUN 6 - 20 mg/dL 28 (H) Creatinine 0.5 - 1.0 mg/dL 1.2 (H) Estimated Glomerular Filtration Rate >=60 mL/min 52 (L) Anion Gap 7 - 15 mmol/L 10 Glucose 70 - 120 mg/dL 272 (H) Calcium 8.4 - 10.2 mg/dL 8.8 CBC Rpt ! WBC 4.00 - 10.80 K/uL 8.07 HGB 12.0 - 15.3 g/dL 9.2 (L) HCT 36.0 - 45.2 % 30.7 (L) MCV 81.5 - 97.5 fL 95.6 PLT 140 - 400 K/uL 366 Latest Reference Range & Units 12/19/23 14:00 Procalcitonin <0.10 ng/mL 1.99 (H) CHEST X-RAY: 12/19/2023 1:45 PM COMPARISON: 1. CT CHEST WO CONTRAST 09/09/2023 1:20 PM 2. DX XR CHEST 1 VIEW 09/08/2023 12:03 PM FINDINGS: Lungs: No evidence of focal consolidation. Pleural spaces: No evidence of pleural effusion or pneumothorax. Heart/Mediastinum: Stable cardiomediastinal silhouette. Bones/joints: Postoperative changes of the bilateral clavicles. New para grafts IMPRESSION: No evidence of acute abnormality. CT THORAX: 12/19/2023 2:41 PM COMPARISON: 1. CT PULMONARY EMBOLUS W 09/17/2022 4:[address] CHEST WO CONTRAST 09/09/2023 1:20 PM FINDINGS: Pulmonary arteries: Evaluation for pulmonary [...] to the level of the segmental arteries. IMPRESSION: Acute on chronic mixed respiratory failure Severe COPD with acute exacerbation Tobacco use disorder Chest CT reviewed personally via PACs. Given lack of wheezing or rhonchi on exam and no evidence ofpneumonia, I believe her hypercapnia is driving her current episode of dyspnea. She has not been able to tolerate wearing BiPAP. I explained to her again today that this is the only way to treat her condition. Smoking cessation also encouraged. Given her reports of coughing while eating and debris noted in her trachea, recommend speech therapy evaluation. Patient was admitted for a primary diagnosis of COPD Exacerbation: yes Patient also has pneumonia: no Does this patient have hypercarbic respiratory failure (pCO2 greater than 52)? Yes. Is NIV indicated? Yes. Was an ABG ordered? Yes Patient is being followed by a Talent Partner: yes, [facility] PULMONARY CONSULTATION SUGGESTION(S): Decrease solumedrol to 40 mg daily, or can transition to PO Prednisone 40 mg BiPAP with all sleep Continue inhaled bronchodilators Continue baseline roflumilast Continue Azithromycin, d/c rocephin as no evidence of pneumonia [facility] Speech therapy evaluation IS/flutter hourly Smoking cessation Ambulatory pulse ox prior to discharge Follow up in pulmonary clinic within 30 days Patient seen and discussed with Dr Damon Cortes, Pulmonary / Thoracic Medicine Attending. STAFF NOTE: Associated attestation - Damon Cortes MD - 12/20/2023 1:32 PM EST I have reviewed the advanced practitioner's documentation on the date of service referenced in note, and I agree with, and take responsibility for the plan of care. I have seen and examined patient at bedside. * Brie Trejo, OTR/L - 12/20/2023 11:25 AM ESTAssociated Order(s): ADULT OCCUPATIONAL THERAPY CONSULT IP GENERAL EVALUATION - Occupational Therapy [facility]-[address] [address] Name: Edna Kebede Location: [facility] 3B-3012/W Date: 12/20/2023 Time: 3:35 PM Edna Kebede is a 63 year old female. Per H&P: "63 year old female with PMH significant for severe COPD, chronic respiratory failure with hypoxia for which she wears 3-4 liters NC at all times, CHF who presented to the ED for increased SOB. Patient reports that for the past few days she has been wheezing, home inhalers and HFN provided little relief. + cough productive at times for white sputum. Denies fever or chills. Denies rhinitis or sore throat. Denies chest pain or palpitations. Denies n/v, abd pain, constipation, or diarrhea. Denies dysuria, urgency, or frequency. Chronic bilat LE edema but notes that she has been having whatshe describes as intermittent "sharp pains" in her hips and legs for approximately 3 weeks without reflief to date. Notes that the pain is causing her not to sleep at times too especially over the past few days. Denies any recent falls or injuries. Denies any previous back/spine or leg issues. In ED, note to have low grade temp and SpO2 89% on her usual 4 liters NC. Normotensive, + tachypneaand resting tachycardia. VBG with pH 7.421, pO2 29.7, pCO2 73 (56.9-77.9 in past). Initial [id number] with repeat 75 (baseline 19-48), BNP 94, [...] the trachea. , bilat LE vascular duplex negative" Patient Status: Inpatient Insurance: Payor: HUMANA MEDICARE ADVANTAGE Plan: [employer] PPO Product Type: *No Product type* Payor: [employer] Plan: [employer] Product Type: *No Product type* Patient Seen: at bedside Patient Identified By: Name, ID Band and Date Diagnosis: COPD exacerbation (12/20/231124) Status of treatment: OOB evaluation completed (12/20/231124) Orders: OT evaluation and treatment (12/20/231124) Weight Bearing Status: Weight bearing as tolerated (12/20/231124) Precautions: Alarms;Falls;Safety;Oxygen (6L) (12/20/231124) Total Treatment Time: 25 (12/20/231124) Past Medical History: Past Medical History: Diagnosis Date Acute deep vein thrombosis (DVT) of right peroneal vein ([facility]) 09/26/2021 02/28/14 Pulmonary note. (Z86.718) History of [...] 11/17/2013 B12 deficiency 11/17/2013 Benzodiazepine abuse, episodic ([facility]) 05/21/2018 Chronic diastolic heart failure (HCC) 02/28/2021 Chronic hypoxemic respiratory failure ([facility]) 04/21/2021 Chronic sinusitis 07/22/2014 COPD (chronic obstructive pulmonary disease) ([facility]) COPD, group D, by GOLD 2017 classification ([facility]) 03/29/2020 Nearing end-stage Per COPD GOLD Classification COPD, severity to be determined ([facility]) 11/17/2013 Cor pulmonale, chronic ([facility]) 03/08/2022 Depression 11/17/2013 DJD (degenerative joint [...] kidney disease ([facility]) 04/14/2021 Hypertensive heart and kidney disease with chronic diastolic congestive heart failure and stage 3a chronic kidney disease ([facility]) 2023-11-22 Adding I13.0, I50.32, N18.31-Hypertensive heart and kidney disease with chronic diastolic congestive heart failure and stage 3a chronic kidney disease ([facility]) Dx to History Hypokalemia 07/26/2022 Insomnia 02/03/2022 Lumbar degenerative disc disease 08/26/2019 Pain down the L4-5 nerve root on the right. Migraine without aura and without status migrainosus, not intractable 01/24/2017 left side. Morbid (severe) obesity due to excess calories ([facility]) 06/16/2022 Other pulmonary embolism without acute cor pulmonale ([facility]) 12/02/2021 02/28/22 Pulmonary note Pt hospitalized [...] Vitamin D deficiency 11/17/2013 Past Surgical History: Past Surgical History: Procedure Laterality Date ABD WALL HERNIA REPAIR, LAP, REDUCIBLE CARPAL TUNNEL SURGERY Bilateral DENTAL SURGERY PROCEDURE NEC 2005 All teeth removed INJECT DX/THER SUBSTANCE INTERLAMINAR LUMBAR/SACRAL W IMAGE GUIDE Right 09/16/2019 INJECTION SPINE LUMBAR OR SACRAL performed by Fawn Vee MD at [facility] INJECT DX/THER SUBSTANCE INTERLAMINAR LUMBAR/SACRAL W IMAGE GUIDE N/A 09/17/2020 INJECTION SPINE LUMBAR OR SACRAL performed by Ktaie Plunkett MD at [facility] LIGATE/CUT OVIDUCT(S) LUMBAR / SACRAL EPIDURAL, ADD'L LEVEL Right 10/06/2019 INJECTION TRANSFORAMINAL EPIDURAL LUMBAR OR SACRAL ADDITIONAL performed by Fawn Vee MD at [facility] LUMBAR / SACRAL EPIDURAL, SINGLE LEVEL Right 10/06/2019 INJECTION TRANSFORAMINAL EPIDURAL LUMBAR OR SACRAL performed by Fawn Vee MD at [facility] REMOVE GALLBLADDER 2011 REPAIR RUPTURED ROTATOR CUFF, CHRON Bilateral Social History/Disposition Lives with: Friend (12/20/231124) Assistance available: Yes (as needed from friend) (12/20/231124) Dwelling type: Single story home (12/20/231124) Entry steps: Ramp (12/20/231124) Inside steps: None (12/20/231124) Bedroom location: 1st floor (12/20/231124) Bath location: 1st floor full bath (tub-shower) (12/20/231124) Prior Level of Function Reported by: Patient (12/20/231124) Ambulation: Ambulatory with device (12/20/231124) Ambulatory Device: Rollator (Mostly Rollator, but occasionally RW) (12/20/231124) Grooming: Independent (12/20/231124) Bathing: Independent (12/20/231124) Dressing: Independent (12/20/23 112) Feeding: Independent (12/20/231124) Toileting: Independent (12/20/231124) Meal Prep: Assistance (12/20/231124) Homemaking: Assistance (12/20/231124) Shopping: Dependent (12/20/231124) Medication Management: Independent (12/20/231124) Money Management: Dependent (12/20/231124) Occupation/Leisure Skills: Retired (12/20/231124) Driving: No (12/20/231124) Durable Medical Equipment at home: Rolling walker;Rollator;Shower chair;Grab bars (12/20/231124) Subjective: Pt agreeable to OT session. Pain: No complaints of pain Observations Consciousness: Alert (12/20/231124) Orientation: Oriented times 4 (12/20/231124) Psychosocial: Patient can communicate basic needs;Patient can converse in a social setting (12/20/231124) Sitting posture: Forward head;Rounded shoulders (12/20/231124) Standing posture: Forward head;Rounded shoulders (12/20/231124) Safety awareness: The Patient verbalizes insight of current deficits.;The Patient demonstrates carryover of insight during functional tasks. (12/20/231124) Other Findings Endurance: Sitting tolerance;Standing tolerance;Functional activity;Poor (12/20/231124) Light touch sensation: LUE;RUE;Intact (12/20/231124) Coordination: LUE;RUE;Intact (12/20/231124) Current Functional Status: Bilateral Upper Extremity Hand Dominance: Right (12/20/231124) Range of Motion: WFL (12/20/231124) Strength Assessment: Deficits noted (12/20/231124) LUE: Shoulder;Elbow;4-/5;Grasp;3+/5 (12/20/231124) RUE: Shoulder;Elbow;4-/5;Grasp;3+/5 (12/20/231124) Self Care Feeding: Supervision (Please comment) (12/20/231124) Grooming: Supervision (Please comment) (12/20/231124) Toileting: Moderate Assistance (12/20/231124) Dressing Upper Body: Minimal Assistance (hospital gown) (12/20/231124) Lower Body: Dependent (slipper socks) (12/20/231124) Bathing Upper Body: Supervision (Please comment) (12/20/231124) Lower Body: Moderate Assistance (12/20/231124) Functional Ambulation Assistive Device: Rolling walker (12/20/231124) Distance in feet:: 2 (12/20/231124) Level of Assistance: Contact Guard (12/20/231124) OT Transfers Sit-Stand: Contact Guard (12/20/231124) Stand-Sit: Contact Guard (12/20/231124) Balance Sit (Static): Good (12/20/231124) Sit (Dynamic): Good (12/20/231124) Stand (Static): Fair (12/20/231124) Stand (Dynamic): Fair (12/20/231124) Alarm Status Patient positioned in: Chair (12/20/231124) With: Pressure pad alarm intact and functioning and call logan in reach (12/20/231124) Patient and Family Goals: to get well and to return home Patient Education Education Topic: Role of OT;Plan of care goals (12/20/231124) Review of Precautions: Safety;Fall (12/20/231124) Education Provided to: Patient (12/20/231124) Response to Education: Receptive and agreeable to education (12/20/231124) Barriers to learning: Medical status (12/20/231124) Preferred learning method: Combination (12/20/231124) Treatment Provided: Therapeutic Activity: 10 minutes Evaluation Moderate Complexity 15 minutes - 05235: Patient was cooperative, pleasant, and alert during treatment session. Moderate complexity evaluation performed and 3-5 activity limitations were identified, including ADL deficit, functional mobility deficit, bed mobility deficit, decreased strength, decreased endurance, decreased range of motion, and impaired balance. Minimal or moderate modification of the functional task was necessary to complete the evaluation. Deficits Requiring O.T. Treatment: Deficits requiring O.T. treatment needs: ADL/self-care;Balance;Endurance;Functional mobility;Safety;Upper extremity strength;Weakness (12/20/231124) Goals: Bathing: Upper: independent (pt does 100%). Lower: modified independent (100% with device and additional time) Dressing: Upper: independent (pt does 100%). Lower: modified independent (100% with device and additional time). Bed Mobility with: Supine to Sit: independent (pt does 100%) Sit to supine: independent (pt does 100%). Transfers with: Toilet: supervision (with cues) Bed to Chair/Wheelchair: supervision (with cues). Demonstrates toileting at independent (pt does 100%) Goal Time Frame: 1-10 sessions Assessment: Ms. Kebede was seen at bedside for OT evaluation. She was seated in the chair upon arrival on 6L O2 via NC. Pt drowsy, but oriented x4. She demonstrated sit<>stand and took a few steps with the RW with CGA. Pt also completed bathing, dressing, and grooming tasks with O2 dropping as low as 83%, but clark to 87-88% after ~30 seconds of deep breathing, and increased further to 91-92% by end of session. Nsg aware. Pt is below her functional baseline. Would consider post-acute careservices which may include home health, half-way, outpatient therapy, or inpatient rehab. The level of care will be determined in collaboration with the patient, family/caregiver, and care team members. AM-PAC score: 14. A portion of this AM-PAC assessment was not scored based on functional assessment, but rather by clinical decision making based on current findings and/ or prior level of function. Please refer to future OT AM-PAC calculations of functional ability as they become available. Treatment Plan: Safety, Bed mobility training, Functional Ambulation, Transfer training, ROM exercises, Upper extremity strengthening, Balance activities, ADL training, and Endurance. Anticipated Frequency (on eval): 1 to 3 times per week (12/20/231124) AM-PAC Help From Another Person Eating Meals: A little (12/20/231124) Help From Another Person Taking Care of Personal Grooming: A little (12/20/231124) Help From Another Person To Put On/Take Off Upper Body Clothing: A little (12/20/231124) Help From Another Person To Put On/Take Off Lower Body Clothing: Total (12/20/231124) Help From Another Person Toileting: A lot (12/20/231124) Help From Another Person Bathing: A lot (12/20/231124) OT AM-PAC Score: 14 (12/20/231124) OT AM-PAC t-Scale Score: 33.39 (12/20/231124) HLM (Highest Level of Mobility) Goal: Level 5 standing (1 or more minutes) (12/20/23929) * Ellie Patel RN - 12/20/2023 11:14 AM ESTAssociated Order(s): CARE MANAGEMENT CONSULT IP See CM ancillary note. * Praful San PT - 12/20/2023 9:56 AM ESTAssociated Order(s): ADULT PHYSICAL THERAPY CONSULT IP GENERAL EVALUATION - Physical Therapy [address] [address] Name: Edna Kebede Location: [facility] [id number]-[id number]/W Date: 12/20/2023 Time: 9:56 AM Edna Kebede is a/an 63 year old female. Patient Status: Inpatient Insurance: Payor: [employer] MEDICARE ADVANTAGE Plan: [employer] CHOICE PPO Product Type: *No Product type* Payor: [employer] Plan: [place] [facility] Product Type: *No Product type* Patient Seen: at bedside, nursing cleared patient for therapy Patient Identified By: Name, ID Band and Date Diagnosis: Gait dysfunction, COPD exacerbation (12/20/23899) Status of treatment: Evaluation completed (12/20/23899) Orders: PT evaluation and treatment (12/20/23899) Weight Bearing Status: Weight bearing as tolerated (12/20/23899) Precautions: Alarms;Falls;Oxygen;Safety (12/20/23899) Total Treatment Time--free text: 46 minutes (12/20/23899) HPI: Per chart review: "63 year old female with PMH significant for severe COPD, chronic respiratory failure with hypoxia for which she wears 3-4 liters NC at all times, CHF who presented to the ED for increased SOB. Patient reports that for the past few days she has been wheezing, home inhalers and HFN provided little relief. + cough productive at times for white sputum. Denies fever or chills. Denies rhinitis or sore throat. Denies chest pain or palpitations. Denies n/v, abd pain, constipation, or diarrhea. Denies dysuria, urgency, or frequency. Chronic bilat LE edema but notes that she has been having whatshe describes as intermittent "sharp pains" in her hips and legs for approximately 3 weeks without reflief to date. Notes that the pain is causing her not to sleep at times too especially over the past few days. Denies any recent falls or injuries. Denies any previous back/spine or leg issues. In ED, note to have low grade temp and SpO2 89% on her usual 4 liters NC. Normotensive, + tachypneaand resting tachycardia. VBG with pH 7.421, pO2 29.7, pCO2 73 (56.9-77.9 in past). Initial [id number] with repeat 75 (baseline 19-48), BNP 94, [...] the trachea. , bilat LE vascular duplex negative" Past Medical History: Past Medical History: Diagnosis Date Acute deep [...] 11/17/2013 B12 deficiency 11/17/2013 Benzodiazepine abuse, episodic ([facility]) 05/21/2018 Chronic diastolic heart failure ([facility]) 02/28/2021 Chronic hypoxemic respiratory failure ([facility]) 04/21/2021 Chronic sinusitis 07/22/2014 COPD (chronic obstructive pulmonary disease) ([facility]) COPD, group D, by GOLD 2017 classification ([facility]) 03/29/2020 Nearing end-stage Per COPD GOLD Classification COPD, severity to be determined ([facility]) 11/17/2013 Cor pulmonale, chronic ([facility]) 03/08/2022 Depression 11/17/2013 DJD (degenerative joint [...] kidney disease ([facility]) 04/14/2021 Hypertensive heart and kidney disease with chronic diastolic congestive heart failure and stage 3a chronic kidney disease ([facility]) 2023-11-22 Adding I13.0, I50.32, N18.31-Hypertensive heart and kidney disease with chronic diastolic congestive heart failure and stage 3a chronic kidney disease ([facility]) Dx to History Hypokalemia 07/26/2022 Insomnia 02/03/2022 Lumbar degenerative disc disease 08/26/2019 Pain down the L4-5 nerve root on the right. Migraine without aura and without status migrainosus, not intractable 01/24/2017 left side. Morbid (severe) obesity due to excess calories ([facility]) 06/16/2022 Other pulmonary embolism without acute cor pulmonale ([facility]) 12/02/2021 02/28/22 Pulmonary note Pt hospitalized [...] Vitamin D deficiency 11/17/2013 Past Surgical History: Past Surgical History: Procedure Laterality Date ABD WALL HERNIA REPAIR, LAP, REDUCIBLE CARPAL TUNNEL SURGERY Bilateral DENTAL SURGERY PROCEDURE NEC 2005 All teeth removed INJECT DX/THER SUBSTANCE INTERLAMINAR LUMBAR/SACRAL W IMAGE GUIDE Right 09/16/2019 INJECTION SPINE LUMBAR OR SACRAL performed by Fawn Vee MD at OR [facility] INJECT DX/THER SUBSTANCE INTERLAMINAR LUMBAR/SACRAL W IMAGE GUIDE N/A 09/17/2020 INJECTION SPINE LUMBAR OR SACRAL performed by Katie Plunkett MD at OR [facility] LIGATE/CUT OVIDUCT(S) LUMBAR / SACRAL EPIDURAL, ADD'L LEVEL Right 10/06/2019 INJECTION TRANSFORAMINAL EPIDURAL LUMBAR OR SACRAL ADDITIONAL performed by Fawn Vee MD at [facility] LUMBAR / SACRAL EPIDURAL, SINGLE LEVEL Right 10/06/2019 INJECTION TRANSFORAMINAL EPIDURAL LUMBAR OR SACRAL performed by Fawn Vee MD at OR [facility] REMOVE GALLBLADDER 2011 REPAIR RUPTURED ROTATOR CUFF, CHRON Bilateral Subjective: Pt expressed willingness to participate in PT consult. Social History/Disposition Lives with: Friend (12/20/23899) Assistance available: Yes (as needed from friend) (12/20/23899) Dwelling type: Single story home (12/20/23899) Entry steps: Ramp (12/20/23899) Inside steps: None (12/20/23899) Bedroom location: 1st floor (12/20/23899) Bath location: 1st floor full bath (12/20/23899) Prior Level of Function Reported by: Patient (12/20/23899) Ambulation: Ambulatory with device (12/20/23899) Ambulatory Device: Rollator (12/20/23899) Devices at home: Rollator;Hospital bed;Shower chair;Grab bars (12/20/23899) Observations Consciousness: Alert (12/20/23899) Orientation: Oriented times 4 (12/20/23899) Psychosocial: Patient can communicate basic needs;Patient can converse in a social setting (12/20/23899) Other Findings: Yes (12/20/23899) Findings: Light touch sensation;Coordination;Tone (12/20/23899) Light Touch Sensation Results: Intact;LLE;RLE (12/20/23899) Coordination Results: Intact;LLE;RLE (12/20/23899) Tone Results: Intact;LLE;RLE (12/20/23899) Sitting Posture: Forward head;Rounded shoulders (12/20/23899) Standing Posture: Forward head;Rounded shoulders (12/20/23899) Pain: Patient has complaints of pain. Pain located B hips w/ radiation down B LE to ankles/feet (chronic per pt report). 06/28 Staff Notified Range of Motion Range of Motion: WFL (B LE; see OT for B UE) (12/20/23899) Strength Assessment Strength Assessment: Deficits noted (see OT for B UE) (12/20/23899) WNL, except: LLE;RLE (12/20/23899) LLE: 4/5;Hip;Knee;Ankle (12/20/23899) RLE: 4/5;Hip;Knee;Ankle (12/20/23899) P.T. Bed Mobility Roll (Left): Contact Guard (12/20/23899) Supine-Sit: Minimal Assistance (12/20/23899) Transfers Sit-Stand: Minimal Assistance (12/20/23899) Stand-Sit: Contact Guard (12/20/23899) W/C-Bed/Mat: Contact Guard (12/20/23899) Ambulation: Distance ambulated (feet): 4 Assistive Device: Rolling walker and O2 6L/min nc Assist: Contact Guard 1 Gait Characteristics: Decreased speed, Decreased step length, fatigues easily, mild trunk sway, currently not safe to transfer or amb w/o assistance. Balance Sit (Static): Good (12/20/23899) Sit (Dynamic): Good (12/20/23899) Stand (Static): Fair (12/20/23899) Stand (Dynamic): Fair (12/20/23899) Patient and or Family Goal(s): to get well and to return home Patient Education Review of Precautions: Safety;Fall (no amb or transfers w/o nursing assist) (12/20/23899) Safety Awareness: Patient verbalizes insight of current deficits;Patient demonstrates carryover of insight during functional tasks;Patient can communicate basic needs (12/20/23899) Preferred learning method: Combination (12/20/23899) Barriers to learning: Medical Status (12/20/23899) Method of Education: Verbalized to patient;Patient demonstrated task (12/20/23899) Topic of Education: Safety with mobility, Goals/plan of care, Use of assistive device, and Fall prevention Method of Education: Verbal discussion and explanation provided to pt: verbalized understanding andor agreement of this information Treatment Provided: Therapeutic Activities 25 minutes: bed mobility training transfer training Education regarding fall prevention and pursed lip breathing w/ monitoring of O2 saturation. Balance training to improve strength, balance, endurance and functional mobility: static sitting EOB w/ supervision 1, static standing at rolling walker w/ supervision 1, amb w/ rolling walker w/ CGA 1. O2 6L/min nc. Evaluation Moderate Complexity 21 minutes - 79231: Patient was cooperative, pleasant, motivated, and alert during treatment session. Moderate complexity evaluation performed and 1-2 personal factors or comorbidities were identified that will impact plan of care, including obesity, history of COPD, cardiac history, and evolving clinical presentation w/ pt currently on 6L/min O2 nc. Patient presents with limitations in strength, bed mobility, transfers, gait, balance, endurance, and safety, whichwill impact plan of care. These limitations will be addressed by the goals set for this patient. Alarm Status Patient positioned in: Chair (O2 6L/min nc) (12/20/23899) With: Pressure pad alarm intact and functioning and call logan in reach (12/20/23899) Treatment Status: Treatment at bedside (12/20/23899) Goals: Demonstrate Bed Mobility with: Supine to Sit: modified independent (with device or slow) Sit to supine: modified independent (with device or slow) Demonstrate Transfers with: Sit to stand: supervision (with cues) Stand to sit: supervision (with cues) Bed to chair: supervision (with cues) Chair to bed: supervision (with cues) Demonstrate Ambulation: assistive device: rolling walker or rollator distance in feet: 50 or greater level of assistance on level surface: supervision (with cues) Increase Safety: w/ functional mobility Time Frame: 10 sessions Assessment: O2 saturation as follows on 6L/min O2 via nc: start of PT session 86% w/ heart rate of 96 bpm; informed pt's nurse who advised attempting bed to chair w/ continued monitoring of O2 saturation. After amb bed to chair, O2 saturation on 6L/min O2 via nc decreased to 78% w/ heart rate of 102 bpm (informed pt's nurse); pt instructed in pursed lip breathing and O2 saturation gradually increased to 84% w/ heart rate of 97 bpm w/ seated rest of ~2 min and to 85% w/ heart rate of 96 bpm. Nurse to room and assessed pt and notified respiratory therapy of need for breathing treatment. Pt denied SOB in chair and reported "I'm okay." Pt was in no observable distress at end of PT session. Pt presents w/ deficits in strength, balance, endurance and functional mobility w/ pt currently requiring assist of 1 for transfers and amb w/ rolling walker, AM PAC 16 and is not safe to transfer oramb without assistance; pt informed as such and verbalized understanding. At discharge would consider post acute care services which may include home health, half-way, outpatient therapy or in pt rehab. The level of care will be determined in collaboration with the patient, family/caregiver and care team members. Skilled PT at [facility] is warranted to address deficits in strength, endurance, balance and functional mobility and to continue to assess discharge needs. Deficits requiring P.T. treatment needs: Safety;Mobility;Balance;Weakness;Endurance (12/20/23899) Equipment Needs: Equipment needs: Rolling walker;Rollator (rollator or rolling walker) (12/20/23899) Treatment Plan: Bed mobility training, Transfer training, Gait training, Strengthening exercises: BLE, Balance activities, and Educate on safety with functional mobility Anticipated Frequency (on eval): 3 to 5 times per week (12/20/23899) AM PAC Score with Stairs: 16 documented in this encounter Nursing Notes * Brooklynn Nolasco RN - 12/23/2023 12:21 PM EST VIRTUAL RN [address] [address] Name: Edna Kebede Location: [facility] 3B-3012/W Date: 12/23/2023 Time: 12:21 PM I completed the Discharge Navigator and Education. The patient was in the hospital. I was not in a hospital or clinic location. After connecting through [employer], the patient was identified by name and date of and / or wristband checked. Patient (or authorized legal health and safety representative) was then i nformed that this was a Virtual Nurse visit and was being conducted confidentially over secure lines. I used a headset and other methods to ensure confidentiality for the patient. My office door was closed. No one else was in the room with me. Patient acknowledged consent and understanding of privacy and security of the Virtual Nurse visit. I presented the opportunity for the patient or authorized legal health and safety representative to ask any questions regarding the visit today. The patient or authorized legal health and safety representative agreed to participate. * Yaz Newell RN - 12/20/2023 12:[address] thurston aware of pt's bsbs 327, Sliding scale regiment changed * Elaina Giraldo RN - 12/19/2023 6:22 PM EST 2VIRTUAL RN [address] [address] Name: Edna Kebede Location: [facility] 3B-3012/W Date: 12/19/2023 Time: 6:22 PM I completed the Admission Navigator. The patient was in the hospital. I was in a private office space at a [facility] location. After connecting through [employer], the patient was identified by name and date of and / or wristband checked. Patient (or authorized legal health and safety representative) was then in formed that this was a Virtual Nurse visit and was being conducted confidentially over secure lines. I used a headset and other methods to ensure confidentiality for the patient. Patient acknowledgedconsent and understanding of privacy and security of the Virtual Nurse visit. I presented the opportunity for the patient or authorized legal health and safety representative to ask any questions regarding the visit today. The patient or authorized legal health and safety representative agreed to participate. Patient understands use of call logan, and use was encouraged. documented in this encounter ED Notes * Zac Ponce, - 12/19/2023 12:26 PM EST HISTORY OF PRESENT ILLNESS Edna Kebede is a 63 year old female who presents to the ED for evaluation of Short of Breath and Pain. The patient was seen at 12/19/23 1218. Short of Breath Review of Systems Respiratory: Positive for shortness of breath. All other systems reviewed and are negative. This is a 63-year-old female, history of COPD, presenting to the emergency department with worsening shortness of breath over the last 2 days. Patient wears 4 L nasal cannula at baseline, and uses inhalers and nebulizers at home, but this has not been helping with her symptoms. She has had a persistent cough productive of whitish sputum, and states that this is not significantly changed from her baseline. Shortness of breath is worse with any exertion. She has also noted some pain and swelling in her legs bilaterally over the last week. Denies any fevers or chills. Denies any chest pain, backpain, abdominal pain. The patient's allergies, past history, and medications were reviewed. PHYSICAL EXAM Initial Vitals (see all): BP 124/55 | Pulse 99 | Resp 28 | Temp 99 | O2 89 %, Nasal Cannula | Weight 91.1 kg | Height 167.6 cm | BMI 32.42 kg/m2 Initial Pain Assessment (see all): 0 (no pain)/10, Throbbing, location: bi hips/legs ([facility] Adult Scale 0-10) Physical Exam Vitals and nursing note reviewed. Constitutional: General: She is not in acute distress. Appearance: She is well-developed. HENT: Head: Normocephalic and atraumatic. Eyes: Conjunctiva/sclera: Conjunctivae normal. Cardiovascular: Rate and Rhythm: Normal rate and regular rhythm. Heart sounds: No murmur heard. Pulmonary: Effort: Pulmonary effort is normal. No respiratory distress. Breath sounds: Decreased breath sounds present. Abdominal: Palpations: Abdomen is soft. Tenderness: There is no abdominal tenderness. Musculoskeletal: General: No swelling. Cervical back: Neck supple. Right lower leg: Tenderness present. Edema present. Left lower leg: Tenderness present. Edema present. Comments: There is edema and erythema with warmth to the bilateral calves, right greater than left.Some tenderness to palpation especially on right. Skin: General: Skin is warm and dry. Capillary Refill: Capillary refill takes less than 2 seconds. Findings: Erythema present. Neurological: Mental Status: She is alert. Psychiatric: Mood and Affect: Mood normal. PROCEDURES AND TREATMENTS ED Orders | ED Results MEDICAL DECISION MAKING Nursing notes and vital signs were reviewed. ED consults were placed. Differential Diagnoses Based on my history, physical exam, and evaluation, the differential includes, but is not limited, to the following diagnoses: COPD exacerbation, pneumonia, pulmonary embolism, viral syndrome, ACS, dysrhythmia, dehydration, electrolyte abnormality. Amount and/or Complexity of Data Reviewed Labs: ordered. Radiology: ordered. ECG/medicine tests: ordered. Risk OTC drugs. Prescription drug management. Decision regarding hospitalization. This is a 63-year-old female presenting to the emergency department for evaluation of worsening shortness of breath. On arrival, patient borderline tachycardic in the high 90s. She was tachypneic in the high 20s. She was satting 89-92% on 5 L nasal cannula. Afebrile, stable blood pressure. Physicalexam as above. Respiratory viral panel was negative. Given lower extremity pain and swelling, vascular duplex studies of bilateral lower extremities were performed and did not show any evidence of DVT. Troponin was initially elevated, but was down trending on repeat. Procalcitonin was elevated at almost 2. VBG with mild hypercapnia. Magnesium, phosphorus, INR were all normal. CBC with baseline ane víctor, no leukocytosis. CMP showed baseline renal function, but significant hypokalemia with a potassium 2.7. Patient was ordered oral potassium repletion. She was initially ordered a DuoNeb treatment,with some improvement of her symptoms, with additional slight improvement after a 2nd treatment, but patient still with wheezing and decreased air movement throughout on re-evaluation, and was ordered a 1 hour albuterol treatment. She was also ordered IV magnesium for likely COPD exacerbation. She was given Solu-Medrol. Chest x-ray, per my interpretation, did not show any acute cardiopulmonary process. D-dimer was added on when patient's initial troponin returned elevated, given her lower extremity swelling as well. This was elevated, and CT PE scan was performed, which did not show any evidence of pulmonary embolism or other acute process. Given patient's significant COPD exacerbation, as well as hypokalemia, I discussed patient's case with the hospitalist service, who accepted the patient for further workup and management. Patient remained stable while under my care in the emergency department. Clinical Impressions Shortness of breath COPD exacerbation (HCC) Acute hypokalemia Disposition Admitted. I discussed the management of this patient with the admitting provider and I made a decision to admit the patient. Admission Order Ordered Status . 12/19/23 1537 Admit for Inpatient Services (incl ZPO) ONCE Completed Zac Ponce * Sherry Franklin RN - 12/19/2023 12:07 PM EST Pt comes in complaining of shortness of breath and bilateral hip/leg pain. Does have hx of COPD. Wears 3-4L NC at all times, 89% in triage. Reports she has been wheezing. Using home inhalers and nebulizers with little relief. Denies any recent falls or injury. documented in this encounter Miscellaneous Notes * Ancillary Progress Note - Frances Roldan, Ribbon Weaver - 12/23/2023 1:21 PM EST CARE MANAGEMENT - ADULT DISCHARGE NOTE [facility]-[address] [place] [address] Name: Edna Kebede Location: [facility] 3B-3012/W Date: 12/23/2023 Time: 4:51 PM The following coordination of care and discharge plan has been coordinated with the care team, patient, family and/or caregiver according to the patients needs and preferences. Discharge Discharge Was Caregiver/Family/Facility contacted regarding discharge: Yes (12/23/23 1356) Final Discharge Plan (Complete only at time of Discharge): Home with Services (12/23/23 9561) Home Medical Care - Discharged on 12/23/2023 Admission date: 12/19/2023 - Discharge disposition: Home with Services No services have been selected for the patient. Narrative: Pt was discharged home with family and ALIN with [facility]. Pt was transported by family. * Communication - Adelita Francis RN - 12/23/2023 10:59 AM EST You will need to call and schedule a follow up appointment with Marcos Gamble PA-C. [facility] Physician Benefits Counselor Family Medicine [address] [place] [address] * Pt Handout (on AVS) - eGeta Ambrocio RN - 12/23/2023 10:36 AM EST [id number] Discharge Instructions: COPD You have been diagnosed [...] you are getting the correct medicine dose. Chaplin with other conditions you have and their [...] blue, oakley, or purple Last Reviewed Date: 01/17/202319997786-2257 The [employer]. All rights reserved. This information is not intended as a substitute for professional medical care. Always follow your healthcare professional's instructions. * Ancillary Progress Note - Efraín Paz RRT - 12/23/2023 10:25 AM EST HOME OXYGEN / EQUIPMENT QUALIFICATION- [facility] [address] [address] Name: Edna Kebede Location: [facility] 3B-3012/W Date: 12/23/2023 Time: 10:25 AM Date and Time performed: 12/23/2023 at 10:19 1. Lab Results (On Room Air): Inpatient- Testing must be performed within 48 hours prior to discharge. Exercise Only: SpO2(Rest): 85% SpO2(Exercise-Room Air): N/A SpO2(Exercise w/O2 flow rate): 91 %, O2 flow rate: 4 LPM Date: 12/23/2023 2. Comments: It is clinically unsafe to ambulate patient at this time on room air, Patient is requiring 4 lpm for rest and ambulation * Care Plan - Nolvia Mendoza RN - 12/23/2023 5:27 AM EST Clinical Goal(s): Pt will remain free from injury throughout this shift. (12/22/232024) Possible barriers to meeting goal(s)/advancing plan of care: Acuity of illness Stability of the patient: Moderately stable - low risk of patient condition declining or worsening Summary regarding today's goal(s): Met: Patient remained free from injury throughout this shift. Recommendations: Continue plan of care * Ancillary Progress Note - Frances Roldan, Ribbon Weaver - 12/22/2023 1:34 PM EST HOME HEALTH/HOSPICE REFERRAL FORM CARE MANAGEMENT [address] [address] Phone: Fax: Referred By: Stan Melendez Planner Admission Date: 12/19/2023 Discharge Date: Discharge Time: Start Date: Agency Referred To: [facility] PATIENT INFORMATION: Name: Edna Kebede Address: [address] [address] : 1960 Phone: There is no home phone number on file. SSN: [id number] County: [place] Caregiver Name: Edna Kebede Relationship: Self Emergency Contacts: Extended Emergency Contact Information Primary Emergency Contact: Peter Grigsby Mobile Relation: Adult Child Secondary Emergency Contact: Jazmine Corona Mobile Relation: Adult Child Preferred language: Georgian [place] Machine Operator needed? No MEDICAL INFORMATION: Principal Diagnosis: COPD exacerbation Other Diagnosis: See attached History and Physical Surgery and Dates: Past Surgical History: Procedure Laterality Date ABD WALL HERNIA REPAIR, LAP, REDUCIBLE CARPAL TUNNEL SURGERY Bilateral DENTAL SURGERY PROCEDURE NEC 2005 All teeth removed INJECT DX/THER SUBSTANCE INTERLAMINAR LUMBAR/SACRAL W IMAGE GUIDE Right 09/16/2019 INJECTION SPINE LUMBAR OR SACRAL performed by Fawn Vee MD at [facility] INJECT DX/THER SUBSTANCE INTERLAMINAR LUMBAR/SACRAL W IMAGE GUIDE N/A 09/17/2020 INJECTION SPINE LUMBAR OR SACRAL performed by Katie Plunkett MD at [facility] LIGATE/CUT OVIDUCT(S) LUMBAR / SACRAL EPIDURAL, ADD'L LEVEL Right 10/06/2019 INJECTION TRANSFORAMINAL EPIDURAL LUMBAR OR SACRAL ADDITIONAL performed by Fawn Vee MD at [facility] LUMBAR / SACRAL EPIDURAL, SINGLE LEVEL Right 10/06/2019 INJECTION TRANSFORAMINAL EPIDURAL LUMBAR OR SACRAL performed by Fawn Vee MD at [facility] REMOVE GALLBLADDER 2012 REPAIR RUPTURED ROTATOR CUFF, CHRON Bilateral Diet: Adults: As tolerated Allergies: Honey bee venom protein [bee venom], Hydrocortisone, and Cortisone Isolation Type: None Activity Restrictions: Weight bearing as tolerated Isolation For: None HOME CARE ORDERS: (Discipline and Frequency): Resumption of Care Medications Dose, Frequency, & Route: Refer to Physician's Discharge Instructions Equipment and Supplies: N/A Ordering Physician and Contact Information: Jesse Thurston DO Comments: Resumption of Care PCP: PCP: MARCOS GAMBLE [address] [facility] [place] [address] [phone] D/C Physician: Jesse Thurston DO Insurance: See attached facesheet. * Care Plan - Nolvia Mendoza RN - 12/22/2023 5:31 AM EST Clinical Goal(s): Pt will remain free from injury throughout this shift. (12/21/232023) Possible barriers to meeting goal(s)/advancing plan of care: Acuity of illness Stability of the patient: Moderately stable - low risk of patient condition declining or worsening Summary regarding today's goal(s): Met: Patient remained free from injury throughout this shift. Recommendations: Continue plan of care * Pt Handout (on AVS) - Michael [facility] - 12/21/2023 6:51 PM EST Images from the original note were not included. [id number] Apixaban Oral Tablet Brands: Eliquis Uses This medicine is used for the following purposes: blood disorder prevent blood clots treatment of blood clots blood clot Instructions This medicine may be taken with or without food. This medicine will work best if you take it at about the same time every day. Store at room temperature away from heat, light, and moisture. Do not keep in the bathroom. It is important that you keep taking each dose of this medicine on time even if you are feeling well. If you forget to take a dose on time, take it as soon as you remember. If it is almost time for thenext dose, do not take the missed dose. Return to your normal schedule. Do not take 2 doses at one time. Drug interactions can change how medicines work or increase risk for side effects. Tell your healthcare providers about all medicines taken. Include prescription and lxtl-pyr-cxjhtuk medicines, vitamins, and herbal medicines. Speak with your doctor or pharmacist before starting or stopping any medicine. Talk to your doctor before taking other medicines, including aspirins and ibuprofen containing products. Speak to your doctor about which medicines are safe to use while you are on this medicine. It is very important that you follow your doctor's instructions for all blood tests. Cautions This medicine may cause serious bleeding problems in patients taking blood thinner medications. Follow your doctor's instructions carefully to monitor your blood lab tests if you are on blood thinners. Tell your doctor and pharmacist if you ever had an allergic reaction to a medicine. This medicine may cause serious bleeding from the stomach or bowels. Stop this medicine and call your doctor immediately if you see any signs of bleeding. Bleeding can cause pain in the stomach, vomiting up liquid that looks like coffee grounds, and red or dark tarry stools. There is an increased risk of bleeding while on this medicine, please tell your doctor or nurse if you notice any excessive bleeding or bruising. Do not use the medication any more than instructed. Please check with your doctor before drinking alcohol while on this medicine. Do not breastfeed while on this medicine. This medicine can hurt a new baby in the womb. If you become while on this medicine, tell your doctor immediately. Your doctor may switch you to a different medicine. Do not take Edmond's wort while on this medicine. Do not share this medicine with anyone who has not been prescribed this medicine. Some patients have serious side effects from this medicine. Ask your pharmacist to show you the information from the Food and Drug Administration (FDA) and discuss it with you. Always refill this medicine before it runs out. Side Effects The following is a list of some common side effects from this medicine. Please speak with your doctor about what you should do if you experience these or other side effects. nosebleeds Call your doctor or get medical help right away if you notice any of these more serious side effects: bleeding or bruising coughing up blood or vomit that looks like coffee grounds fainting numbness or tingling in hands and feet severe or persistent headache sudden leg pain, swelling, warmth or redness loss of movement anywhere on the body shortness of breath bloody or dark, tarry stools symptoms of stroke (such as one-sided weakness, slurred speech, confusion) difficulty swallowing unusual or unexplained tiredness or weakness blood in urine blurring or changes of vision A few people may have an allergic reaction to this medicine. Symptoms can include difficulty breathing, skin rash, itching, swelling, or severe dizziness. If you notice any of these symptoms, seek medical help quickly. Extra Please speak with your doctor, nurse, or pharmacist if you have any questions about this medicine. [email or web address] IMPORTANT NOTE: This document tells you briefly how to take your medicine, but it does not tell youall there is to know about it. Your doctor or pharmacist may give you other documents about your medicine. Please talk to them if you have any questions. Always follow their advice. There is a more complete description of this medicine available in Georgian. Scan this code on your smartphone or tablet or use the web address below. You can also ask your pharmacist for a printout. If you have any questions, please ask your pharmacist. The display and use of this drug information is subject to Terms of Use. Copyright(c) 2022 [employer]. 8751-5028 The [employer]. All rights reserved. This information is not intended as a substitute for professional medical care. Always follow your healthcare professional's instructions. * Ancillary Progress Note - Darren Bal PTA - 12/21/2023 2:10 PM EST PROGRESS NOTE - Physical Therapy [facility]-[address] [address] Name: Edna Kebede Location: [facility] 3B-3012/W Date: 12/21/2023 Time: 5:49 PM Edna Kebede is a/an 63 year old female. Patient Status: Inpatient Insurance: Payor: HU[employer]NA MEDICARE ADVANTAGE Plan: HU[employer]NA CHOICE PPO Product Type: *No Product type* Payor: [employer] Plan: [place] [facility] Product Type: *No Product type* Patient Seen: at bedside, nursing cleared patient for therapy Patient Identified By: Name, ID Band and Date Diagnosis: Gait dysfunction, COPD exacerbation (12/20/23899) Status of treatment: Treatment completed (12/21/231409) Orders: PT evaluation and treatment (12/20/23899) Weight Bearing Status: Weight bearing as tolerated (12/21/231409) Precautions: Alarms;Falls;Oxygen;Safety (12/21/231409) Total Treatment Time--free text: 23 mins (12/21/231409) Subjective: "Im getting tired sitting here" Pain: No complaints of pain P.T. Bed Mobility Roll (Left): Contact Guard (12/20/23899) Supine-Sit: Minimal Assistance (12/20/23899) Sit-Supine: Minimal Assistance (12/21/231409) Transfers Sit-Stand: Minimal Assistance (12/21/231409) Stand-Sit: Contact Guard (12/21/231409) W/C-Bed/Mat: Minimal Assistance (12/21/231409) Ambulation: Distance ambulated (feet): 30 Assistive Device: Rolling walker Assist: Contact Guard Balance Sit (Static): Good (12/20/23899) Sit (Dynamic): Good (12/20/23899) Stand (Static): Fair (12/20/23899) Stand (Dynamic): Fair (12/20/23899) Patient and or Family Goal(s): to get well and to return home Topic of Education: Safety with mobility, Use of assistive device, and Fall prevention Method of Education: Demonstrated the above task to pt: verbalized understanding and or agreement of this information and demonstrated the exercise and or task Treatment Provided: Gait Training 10 minutes: gait training with rolling walker Therapeutic Exercises: 13 minutes Alarm Status Patient positioned in: Bed (12/21/231409) With: Bed alarm intact and functioning and call logan in reach (12/21/231409) Patient Education Review of Precautions: Safety;Fall (12/21/231409) Review of Exercises: Pt Demonstrated Exercise;Verbal Exercises Provided (12/21/231409) Safety Awareness: Patient verbalizes insight of current deficits;Patient demonstrates carryover of insight during functional tasks;Patient can communicate basic needs (12/21/231409) Preferred learning method: Combination (12/20/23899) Barriers to learning: Medical Status (12/20/23899) Method of Education: Verbalized to patient;Patient demonstrated task (12/20/23899) Assessment: Pt tolerated tx fair with no reported pain, however reported feeling fatigued and SOB post tx session. Pt's SPo2 dropped from 91% on 4L to 83% post GT bout and required 3 mins to return to 90%. Pt performed seated exercises in the chair to increase strength and ROM to improve functionalmobility. Pt ambulated 30 ft with a CGA and a RW and is slightly unsteady and unsafe to transfer w/o assistance. Pt was returned to lying supine in bed with HOB elevated to comfort. No needs post tx session. Pt instructed to not get up without assistance. Deficits requiring P.T. treatment needs: Safety;Mobility;Balance;Weakness;Endurance (12/20/23899) Equipment needs: Rolling walker;Rollator (rollator or rolling walker) (12/20/23899) Plan: Continue with current treatment plan established on evaluation. AM PAC Score with Stairs: 17 * Ancillary Progress Note - Ellie Patel RN - 12/21/2023 1:49 PM EST CARE MANAGEMENT - ADULT TRANSITION NOTE [facility]-[address] [address] Name: Edna Kebede Location: [facility] 3B-3012/W Date: 12/21/2023 Time: 1:49 PM Risk Stratification Risk Stratification Psycho Social / Medical Concerns Identified: Adjustment to illness/injury;Multiple Comorbidities (12/20/231114) Accessed [facility] to connect patients to social care resources: No (12/20/231114) OBRA or OPTIONS needed for placement: No (12/20/231114) Readmission Risk Score: 26.81 (12/21/23 1200) AM-PAC Score With Stairs : 16 (12/21/23 0748) Caregiver Information Patient Contacts Name Relation Home Work Mobile Peter Grigsby Adult Child [phone] Jazmine Corona Adult Child [phone] Martinez GRIGSBY Adult Child [phone] Yen Tapia [phone] Transition of Care Checklist Narrative: Discussed during IDT. No anticipated DC at this time. CM will continue to follow for DC needs. Anticipated Transportation at Discharge: boyfriend Patient/Family Expectations: return home with [facility] home health Transition Planning Additional Considerations: Care Management will continue to monitor and assist with discharge planning needs * Diagnostic Clarification - Jesse Thurston DO - 12/21/2023 12:13 PM EST - Acute metabolic encephalopathy was likely present during admission but has resolved. Encephalopathy now likely due to hypercapnia The patient has been diagnosed with acute on chronic respiratory failure with hypoxia and hypercapnia. * Hospital Course - Heri Kemp MD - 12/20/2023 11:18 PM EST {Hospital Course documentation can easily be pulled into the Discharge Summary by documenting here and using the smartlink in the Discharge Summary template:[id number]} * Ancillary Progress Note - Alejo Paul RRT - 12/20/2023 10:14 PM EST Pt wore BiPAP for a bit tonight but is requesting to remain off for now. * Care Plan - Yaz Newell RN - 12/20/2023 7:01 PM EST [Pt SPO2 will stay above 90% on 6L this shift Possible barriers to meeting goal(s)/advancing plan of care: diagnosis Stability of the patient: Moderately stable - low risk of patient condition declining or worsening Summary regarding today's goal(s): Unmet: Pt would desat to 84% when transferring to chair Recommendations: wean O2 * Ancillary Progress Note - Ellie Patel RN - 12/20/2023 11:19 AM EST CARE MANAGEMENT - ADULT INITIAL SCREENING [facility]-[address] [address] Name: Edna Kebede Location: [address] Date: 12/20/2023 Time: 11:19 AM Discussed patient with the interdisciplinary care team. This Supervisor [employer] performed a chart review and met with patient at bedside to complete admission screen and assessed needs for transition planning. The pharmacy customer care specialist role and services were explained and emotional support was provided. Chief Complaint: Short of Breath and Pain Prior Living Arrangements What was your living situation prior to admission/observation?: Other (Comment) (with BF Haroon Waters) (12/20/23 111) Living Quarters: House (12/20/23 111) Number of steps to enter living quarters:: 0 has ramp (12/20/23 111) Do you have serious difficulty walking or climbing stairs? (5 years old or older): Yes (stairs) (12/19/23 1800) History of falling: No (12/20/23 1000) Prior Level of Functioning Describe the patient's ability prior to admission/observation to perform ADLs: Performs independently (12/20/231114) Describe the patient's mobility status prior to admission: Patient ambulates independently (12/20/23 111) Patient uses assistive device: No (12/20/231114) If yes, choose:: Walker (12/19/23 1800) Caregiver Information Patient Contacts Name Relation Home Work Mobile SebPeter bermudez Adult Child [phone] CoronaJazmine Adult Child [phone] Martinez GRIGSBY Adult Child [phone] ReginaYen Friend [phone] Patient to [facility] 12/19 with diagnosis of acute on chronic respiratory failure. Prior to admission patient resided in a 1 story home with boyfriend Haroon Waters and her grandson. Patient was independent with ADL's and most IADL's but does require boyfriend to provide transportation to appointments. Patient has walker with wheels in the home but states she does not really use. [facility] and phone call to intake and made aware that patient is currently admitted. Patient wears oxygen at 4 LPM via NC continuously that she receives from [facility]. Goalis to return home with boyfriend and [facility]. Boyfriend will provide transportation on DC. Risk Stratification/Psychosocial/Care Gaps Risk Stratification Psycho Social / Medical Concerns Identified: Adjustment to illness/injury;Multiple Comorbidities (12/20/231114) Accessed [facility] to connect patients to social care resources: No (12/20/231114) OBRA or OPTIONS needed for placement: No (12/20/231114) Readmission Risk Score: 25.86 (12/20/23 0801) AM-PAC Score With Stairs : 16 (12/20/23 0930) Prior to Admission Services Services Prior to Admission YOUNG ADULT LIBRARIAN Services (Services received within the last 30 days with exception, Psych within last two years): Home Health (12/20/231114) List All Provider/Service Name: [facility] health (12/20/231114) Agency contacted: Yes (12/20/231114) Spoke with - Comment: intake staff (12/20/231114) YOUNG ADULT LIBRARIAN Durable Medical Equipment (DME) in home: Oxygen (name) - Comment;Shower chair/bench;Walker Rolling;Raised toilet seat (12/20/231114) DME Name: [facility] (12/20/231114) [place] Dept[place] of Aging (PDA) Waiver Program: N/A (12/20/231114) YOUNG ADULT LIBRARIAN Transportation (Services received within the last 30 days): Family/Friends Personal Vehicle (12/20/231114) Outpatient Supervisor [employer]: No care juice bar team member to display Patient/Family Expectations: home with boyfriend and [facility] For further screening information, please refer to the Care Management flow document. * Ancillary Progress Note - Alejo Paul RRT - 12/19/2023 8:32 PM EST Pt placed on BiPAP. She was not wanting to go on earlier tonight until she had her meds and was able to use the restroom. She is resting comfortably. * Medical Necessity - Ruma De Los Santos RN - 12/19/2023 4:26 PM EST AdmissionCare Guideline: COPD - INPT, Inpatient Based on the indications selected for the patient, the bed status of Inpatient was determined to beMET The following indications were selected as present at the time of evaluation of the patient: - High-risk active acute comorbidity (eg, dysrhythmia, heart failure, pleural effusion, pneumothorax, myopathy, rib fracture) with new or worsened (eg, from baseline) signs or symptoms of COPD (eg, dyspnea, Tachypnea) Additional Information: Presents to the ED for evaluation of Short of Breath and Pain. Baseline oxygen 4L. There is edema and erythema with warmth to the bilateral calves, right greater than left. PMH CHF. Potassium 2.7 Sp02 88% 5 L oxygen Albuterol one hour neb Duoneb magnesium IV Solumedrol IV AdmissionCare documentation entered by: Ruma De Los Santos [facility] [employer], 27th edition, Copyright 2022 [facility] [employer] All Rights Reserved. [id number]:26:42-05:00 Solely for purpose of utilization review and payment; not a diagnostic tool * Ancillary Progress Note - Cherie Rosales RVT - 12/19/2023 1:05 PM EST Bilateral LE Venous Duplex- No evidence of acute DVT in the right or left lower extremity. documented in this encounter Plan of Treatment Upcoming Encounters Date Type Department Care Team (Late st Contact Info) Description 06/18/2024 7:40 AM EDT Office Visit [facility] [address] [place] [address] Piper Cazares DO [address] [place] [address] 07/14/2024 1:00 PM EDT PulmDiagnostic Pulmonary Function Lab, [facility] [address], [place] [address] Gl, Pulm Function Room 1 [address] [place] [address] 07/14/2024 2:00 PM EDT PulmDiagnostic Pulmonary Function Lab, [facility] [address], [place] [address] [facility], Pul [facility] [address] 07/23/2024 3:20 PM EDT Office Visit Pulmonary Medicine Trent Pratibha Winter [address] [place] [address] [phone] Chance Zimmerman MD [address] [place] [address] [address] Scheduled Orders Name Type Priority Associated Diagnoses Orde r Schedule CULTURE, RESPIRATORY, LOWER, AEROBIC Lab Routine One Time for 1 O ccurrences starting 12/19/2023 until 12/19/2023 Health Maintenance Due Date Last Done Comments [...] Additional history exists CKD PHOS USE SMARTSET 64119 12/19/202411/21, 09/12/2023, 05/21/2023, Additional history exists CKD HGB USE SMARTSET 25442 12/23/202412/23, 12/22/2023, 12/21/2023, Additional history exists O2 ASSESSMENT COMPLETED IN PAST YEAR FOR COPD 12/23/2024 12/23/2023 Lipid Panel 04/19/2027 04/19/2022, 12/21, 01/21/2021, Additional history exists Cervical Cancer Screening Discontinued Pap Smear Discontinued 10/10/2016, 10/21, 11/17/2013, Additional history exists Pneumococcal Vaccine: 65+ Years Completed 05/10/2022, 11/17/2013 LUNG CANCER SCREENING - USE SMARTSET 80557 Completed 09/09/2023, 05/22/2023, 12/15/2022, Additional history exists [...] Comments GLUCOSE METER, POINT OF CARE WILEY 12/23/2023 11:37 AM EST GLUCOSE METER, POINT OF CARE [place] 12/23/2023 7:42 AM EST BASIC METABOLIC PANEL Routine 12/23/2023 3:27 AM EST CBC Routine 12/23/2023 3:27 AM EST GLUCOSE METER, POINT OF CARE [place] 12/22/2023 9:07 PM EST GLUCOSE METER, POINT OF CARE [place] 12/22/2023 4:31 PM EST GLUCOSE METER, POINT OF CARE [place] 12/22/2023 12:02 PM EST GLUCOSE METER, POINT OF CARE [facility] 12/22/2023 7:56 AM EST BASIC METABOLIC PANEL Routine 12/22/2023 7:46 AM EST CBC Routine 12/22/2023 7:46 AM EST GLUCOSE METER, POINT OF CARE [facility] 12/21/2023 9:29 PM EST GLUCOSE METER, POINT OF CARE [facility] 12/21/2023 4:35 PM EST GLUCOSE METER, POINT OF CARE [facility] 12/21/2023 11:57 AM EST GLUCOSE METER, POINT OF CARE [place] 12/21/2023 8:13 AM EST BASIC METABOLIC PANEL Routine 12/21/2023 7:55 AM EST CBC Routine 12/21/2023 7:55 AM EST GLUCOSE METER, POINT OF CARE [place] 12/20/2023 9:19 PM EST GLUCOSE METER, POINT OF CARE [place] 12/20/2023 4:51 PM EST GLUCOSE METER, POINT OF CARE [place] 12/20/2023 11:43 AM EST GLUCOSE METER, POINT OF CARE [place] 12/20/2023 8:16 AM EST HEMOGLOBIN A1C Routine 12/20/2023 5:03 AM EST BASIC METABOLIC PANEL Routine 12/20/2023 5:03 AM EST CBC Routine 12/20/2023 5:03 AM EST GLUCOSE METER, POINT OF CARE [facility] 12/19/2023 9:37 PM EST BLOOD GAS, ARTERIAL STAT 12/19/2023 8 :40 PM EST GLUCOSE METER, POINT OF CARE [facility] 12/19/2023 6:12 PM EST GLUCOSE METER, POINT OF CARE [facility] 12/19/2023 5:38 PM EST BASIC METABOLIC PANEL Routine 12/19/2023 5:34 PM EST MRSA SCREEN, PCR Routine 12/19/2023 5:20 PM EST BLOOD GAS, ARTERIAL Routine 12/19/2023 4 :[address] PULMONARY EMBOLUS W CONTRAST STAT 12/19/2023 2:48 PM EST TROPONIN T, HIGH SENSITIVITY STAT 12/19/2023 2:00 PM EST PROCALCITONIN Add-on 12/19/2023 2:00 PM EST BLOOD GAS, VENOUS STAT 12/19/2023 1:4 2 PM EST XR CHEST 2 VIEWS STAT 12/19/2023 1:30 PM EST VASC DUPLEX VENOUS LE BILAT STAT 12/19/2023 1:05 PM EST RESPIRATORY PATHOGEN PANEL, PCR STAT 12/19/2023 12:50 PM EST EXTRA ALANIZ TOP Routine 12/19/2023 12:36 PM EST EXTRA LIGHT BLUE TOP Routine 12/19/2023 12:36 PM EST EXTRA TUBES Routine 12/19/2023 12:36 PM EST DIFFERENTIAL, AUTOMATED STAT 12/19/2023 12:36 PM EST TROPONIN T, HIGH SENSITIVITY STAT 12/19/2023 12:36 PM EST PROCALCITONIN Add-on 12/19/2023 12:36 PM EST BNP (NT-PROBNP) Add-on 12/19/2023 12:36 PM EST BNP (NT-PROBNP) STAT 12/19/2023 12:36 PM EST COMPREHENSIVE METABOLIC PANEL STAT 12/19/2023 12:36 PM EST D-DIMER Add-on 12/19/2023 12:36 PM EST CBC STAT 12/19/2023 12:36 PM EST PT INR STAT 12/19/2023 12:36 PM EST PHOSPHORUS Add-on 12/19/2023 12:36 PM EST CBC STAT 12/19/2023 12:36 PM EST MAGNESIUM Add-on 12/19/2023 12:36 PM EST HC ECG TRACING ONLY Routine 12/19/2023 1 2:27 PM EST Shortness of breath documented in this encounter Results * (ABNORMAL) GLUCOSE METER, POINT OF CARE (12/23/2023 11:37 AM EST) Glucose Meter 208(H) 70 - 120 mg/dL 12/23/2023 11:58 AM EST [facility] Blood Whole blood specimen / Unknown 12/23/2023 11:37 AM EST 12/23/2023 11:58 AM EST [facility] DO LAB POINT OF CARE TE ST DOCKED DEVICE UNSOLICITED RESULTS Performing Organization Address City/[facility] Co de Phone Number [facility] [address] [place] [address] * GLUCOSE METER, POINT OF CARE (12/23/2023 7:42 AM EST) Glucose Meter 107 70 - 120 mg/dL 12/23/2023 8:25 AM EST [facility] Blood Whole blood specimen / Unknown 12/23/2023 7:42 AM EST 12/23/2023 8:25 AM EST [facility] LAB POINT OF CARE TE ST DOCKED DEVICE UNSOLICITED RESULTS Performing Organization Address [facility] de Phone Number [facility] [address] [place] [address] * (ABNORMAL) CBC (12/23/2023 3:27 AM EST) WBC 8.99 4.00 - 10.80 K/uL 12/23/2023 4:22 AM EST LABORATORY GLH RBC 3.23 3.85 - 5.15 M/uL 12/23/2023 4:22 AM EST LABORATORY GLH HGB 9.6(L) 12.0 - 15.3 g/dL 12/23/2023 4:22 AM EST LABORATORY GL[facility] HCT 31.4(L) 36.0 - 45.2 % 12/23/2023 4:22 AM EST LABORATORY GLH MCV 97.2 81.5 - 97.5 fL 12/23/2023 4:22 AM EST LABORATORY GLH MCH 29.7 27.0 - 34.0 pg 12/23/2023 4:22 AM EST LABORATORY GL MCHC 30.6 32.0 - 36.0 g/dL 12/23/2023 4:22 AM EST LABORATORY GL RDW 15.9 11.5 - 15.5 % 12/23/2023 4:22 AM EST LABORATORY [facility] PLT 425(H) 140 - 400 K/uL 12/23/2023 4:22 AM EST LABORATORY [facility] MPV 9.3 6.6 - 11.1 fL 12/23/2023 4:22 AM EST LABORATORY GL nRBCs 0 <=0 /100 WBCs 12/23/2023 4:22 AM EST LABORATORY GL Blood Venous blood specimen / Unknown Venipuncture / Unknown 12/23/2023 3:27 AM EST 12/23/2023 4:13 AM EST Jesse Thurston DO LAB BLOOD ORDERABLES Performing Organization Address City/State/[facility] Co de Phone Number LABORATORY [facility] [address] [place] [address] * (ABNORMAL) BASIC METABOLIC PANEL (12/23/2023 3:27 AM EST) BUN 25(H) 6 - 20 mg/dL 12/23/2023 4:42 AM EST LABORATORY GL Creatinine 1.3(H) 0.5 - 1.0 mg/dL 12/23/2023 4:42 AM EST LABORATORY GL Estimated Glomerular Filtration Rate 48(L) >=60 mL/min 12/23/2023 4:42 AM EST LABORATORY GL Comment:eGFR is calculated b ased on the CKD-EPI 2020 equation Sodium 145 135 - 146 mmol/L 12/23/2023 4:42 AM EST LABORATORY GLH Potassium 3.4(L) 3.5 - 5.1 mmol/L 12/23/2023 4:42 AM EST LABORATORY GLH Chloride 98 98 - 107 mmol/L 12/23/2023 4:42 AM EST LABORATORY GLH CO2 37(H) 22 - 32 mmol/L 12/23/2023 4:42 AM EST LABORATORY GL Anion Gap 10 7 - 15 mmol/L 12/23/2023 4:42 AM EST LABORATORY GLH Glucose 101 70 - 120 mg/dL 12/23/2023 4:42 AM EST LABORATORY [facility] Calcium 8.4 8.4 - 10.2 mg/dL 12/23/2023 4:42 AM EST LABORATORY [facility] Blood Venous blood specimen / Unknown Venipuncture / Unknown 12/23/2023 3:27 AM EST 12/23/2023 4:13 AM EST [facility] LAB BLOOD ORDERABLES Performing Organization Address City/[facility]/ZIP Co de Phone Number LABORATORY [facility] [address] [place], [place] [id number] * (ABNORMAL) GLUCOSE METER, POINT OF CARE (12/22/2023 9:07 PM EST) Glucose Meter 129(H) 70 - 120 mg/dL 12/22/2023 9:30 PM EST [facility] Blood Whole blood specimen / Unknown 12/22/2023 9:07 PM EST 12/22/2023 9:30 PM EST [facility] LAB POINT OF CARE TE ST DOCKED DEVICE UNSOLICITED RESULTS Performing Organization Address [facility] Phone Number [facility] [address] [place] [phone] * (ABNORMAL) GLUCOSE METER, POINT OF CARE (12/22/2023 4:31 PM EST) Glucose Meter 204(H) 70 - 120 mg/dL 12/22/2023 6:00 PM EST [facility] Blood Whole blood specimen / Unknown 12/22/2023 4:31 PM EST 12/22/2023 6:00 PM EST [facility] DO LAB POINT OF CARE TE ST DOCKED DEVICE UNSOLICITED RESULTS Performing Organization Address [facility] de Phone Number [facility] [address] [place] [phone] * (ABNORMAL) GLUCOSE METER, POINT OF CARE (12/22/2023 12:02 PM EST) Glucose Meter 218(H) 70 - 120 mg/dL 12/22/2023 12:08 PM EST [facility] Blood Whole blood specimen / Unknown 12/22/2023 12:02 PM EST 12/22/2023 12:08 PM EST [facility] DO LAB POINT OF CARE TE ST DOCKED DEVICE UNSOLICITED RESULTS Performing Organization Address City/[facility]/ZIP Co de Phone Number [facility] [address] [place] [address] * GLUCOSE METER, POINT OF CARE (12/22/2023 7:56 AM EST) Glucose Meter 108 70 - 120 mg/dL 12/22/2023 7:58 AM EST [facility] Blood Whole blood specimen / Unknown 12/22/2023 7:56 AM EST 12/22/2023 7:58 AM EST [facility] LAB POINT OF CARE TE ST DOCKED DEVICE UNSOLICITED RESULTS Performing Organization Address [facility] Co de Phone Number [facility] [address] [place] [address] * (ABNORMAL) CBC (12/22/2023 7:46 AM EST) WBC 8.27 4.00 - 10.80 K/uL 12/22/2023 7:52 AM EST LABORATORY GLH RBC 3.38 3.85 - 5.15 M/uL 12/22/2023 7:52 AM EST LABORATORY GLH HGB 10.1(L) 12.0 - 15.3 g/dL 12/22/2023 7:52 AM EST LABORATORY GLH HCT 33.3(L) 36.0 - 45.2 % 12/22/2023 7:52 AM EST LABORATORY GLH MCV 98.5 81.5 - 97.5 fL 12/22/2023 7:52 AM EST LABORATORY GLH MCH 29.9 27.0 - 34.0 pg 12/22/2023 7:52 AM EST LABORATORY GLH MCHC 30.3 32.0 - 36.0 g/dL 12/22/2023 7:52 AM EST LABORATORY GL RDW 16.4 11.5 - 15.5 % 12/22/2023 7:52 AM EST LABORATORY GL PLT 413(H) 140 - 400 K/uL 12/22/2023 7:52 AM EST LABORATORY GL MPV 9.0 6.6 - 11.1 fL 12/22/2023 7:52 AM EST LABORATORY GL nRBCs 0 <=0 /100 WBCs 12/22/2023 7:52 AM EST LABORATORY GL Blood Venous blood specimen / Unknown Venipuncture / Unknown 12/22/2023 7:46 AM EST 12/22/2023 7:49 AM EST Jesse Thurston DO LAB BLOOD ORDERABLES LABORATORY [address] [address] * (ABNORMAL) BASIC METABOLIC PANEL (12/22/2023 7:46 AM EST) BUN 28(H) 6 - 20 mg/dL 12/22/2023 8:06 AM EST LABORATORY GL Creatinine 1.3(H) 0.5 - 1.0 mg/dL 12/22/2023 8:06 AM EST LABORATORY GL Estimated Glomerular Filtration Rate 46(L) >=60 mL/min 12/22/2023 8:06 AM EST LABORATORY GLH Comment:eGFR is calculated b ased on the CKD-EPI 2020 equation Sodium 144 135 - 146 mmol/L 12/22/2023 8:06 AM EST LABORATORY GLH Potassium 3.8 3.5 - 5.1 mmol/L 12/22/2023 8:06 AM EST LABORATORY GLH Chloride 95(L) 98 - 107 mmol/L 12/22/2023 8:06 AM EST LABORATORY GLH CO2 40(H) 22 - 32 mmol/L 12/22/2023 8:06 AM EST LABORATORY GLH Anion Gap 9 7 - 15 mmol/L 12/22/2023 8:06 AM EST LABORATORY GLH Glucose 110 70 - 120 mg/dL 12/22/2023 8:06 AM EST LABORATORY GLH Calcium 8.5 8.4 - 10.2 mg/dL 12/22/2023 8:06 AM EST LABORATORY [facility] Blood Venous blood specimen / Unknown Venipuncture / Unknown 12/22/2023 7:46 AM EST 12/22/2023 7:49 AM EST [facility] BLOOD ORDERABLES Performing Organization Address City/[facility]/ZIP Co de Phone Number LABORATORY [facility] [address] [place] [address] * (ABNORMAL) GLUCOSE METER, POINT OF CARE (12/21/2023 9:29 PM EST) Glucose Meter 215(H) 70 - 120 mg/dL 12/21/2023 10:49 PM EST [facility] Blood Whole blood specimen / Unknown 12/21/2023 9:29 PM EST 12/21/2023 10:49 PM EST [facility] LAB POINT OF CARE TE ST DOCKED DEVICE UNSOLICITED RESULTS Performing Organization Address [facility] Co de Phone Number [facility] [address] [place] [phone] * (ABNORMAL) GLUCOSE METER, POINT OF CARE (12/21/2023 4:35 PM EST) Glucose Meter 208(H) 70 - 120 mg/dL 12/21/2023 4:39 PM EST [facility] Blood Whole blood specimen / Unknown 12/21/2023 4:35 PM EST 12/21/2023 4:39 PM EST [facility] DO LAB POINT OF CARE TE ST DOCKED DEVICE UNSOLICITED RESULTS Performing Organization Address [facility] Co de Phone Number [facility] [address] [place] [address] * (ABNORMAL) GLUCOSE METER, POINT OF CARE (12/21/2023 11:57 AM EST) Glucose Meter 253(H) 70 - 120 mg/dL 12/21/2023 12:16 PM EST [facility] Blood Whole blood specimen / Unknown 12/21/2023 11:57 AM EST 12/21/2023 12:16 PM EST [facility] LAB POINT OF CARE TE ST DOCKED DEVICE UNSOLICITED RESULTS Performing Organization Address City/[facility]/ZIP Co de Phone Number [facility] [address] [place] [address] * (ABNORMAL) GLUCOSE METER, POINT OF CARE (12/21/2023 8:13 AM EST) Glucose Meter 139(H) 70 - 120 mg/dL 12/21/2023 8:54 AM EST [facility] Blood Whole blood specimen / Unknown 12/21/2023 8:13 AM EST 12/21/2023 8:54 AM EST [facility] LAB POINT OF CARE TE ST DOCKED DEVICE UNSOLICITED RESULTS Performing Organization Address City/[facility]/ZIP Co de Phone Number [facility] [address] [place] [address] * (ABNORMAL) CBC (12/21/2023 7:55 AM EST) WBC 10.48 4.00 - 10.80 K/uL 12/21/2023 8:03 AM EST LABORATORY GLH RBC 2.97 3.85 - 5.15 M/uL 12/21/2023 8:03 AM EST LABORATORY GLH HGB 9.0(L) 12.0 - 15.3 g/dL 12/21/2023 8:03 AM EST LABORATORY GLH HCT 28.8(L) 36.0 - 45.2 % 12/21/2023 8:03 AM EST LABORATORY GLH MCV 97.0 81.5 - 97.5 fL 12/21/2023 8:03 AM EST LABORATORY GLH MCH 30.3 27.0 - 34.0 pg 12/21/2023 8:03 AM EST LABORATORY GLH MCHC 31.3 32.0 - 36.0 g/dL 12/21/2023 8:03 AM EST LABORATORY GL RDW 16.8 11.5 - 15.5 % 12/21/2023 8:03 AM EST LABORATORY GL PLT 405(H) 140 - 400 K/uL 12/21/2023 8:03 AM EST LABORATORY GL MPV 9.3 6.6 - 11.1 fL 12/21/2023 8:03 AM EST LABORATORY GL nRBCs 0 <=0 /100 WBCs 12/21/2023 8:03 AM EST LABORATORY GL Blood Venous blood specimen / Unknown Venipuncture / Unknown 12/21/2023 7:55 AM EST 12/21/2023 7:59 AM EST Jesse Thurston DO LAB BLOOD ORDERABLES LABORATORY GL [address] [place] [address] * (ABNORMAL) BASIC METABOLIC PANEL (12/21/2023 7:55 AM EST) BUN 32(H) 6 - 20 mg/dL 12/21/2023 8:17 AM EST LABORATORY GLH Creatinine 1.3(H) 0.5 - 1.0 mg/dL 12/21/2023 8:17 AM EST LABORATORY GLH Estimated Glomerular Filtration Rate 44(L) >=60 mL/min 12/21/2023 8:17 AM EST LABORATORY GLH Comment:eGFR is calculated b ased on the CKD-EPI 2020 equation Sodium 140 135 - 146 mmol/L 12/21/2023 8:17 AM EST LABORATORY GLH Potassium 3.5 3.5 - 5.1 mmol/L 12/21/2023 8:17 AM EST LABORATORY GLH Chloride 92(L) 98 - 107 mmol/L 12/21/2023 8:17 AM EST LABORATORY GLH CO2 39(H) 22 - 32 mmol/L 12/21/2023 8:17 AM EST LABORATORY GLH Anion Gap 9 7 - 15 mmol/L 12/21/2023 8:17 AM EST LABORATORY GLH Glucose 149(H) 70 - 120 mg/dL 12/21/2023 8:17 AM EST LABORATORY GLH Calcium 8.3(L) 8.4 - 10.2 mg/dL 12/21/2023 8:17 AM EST LABORATORY [facility] Blood Venous blood specimen / Unknown Venipuncture / Unknown 12/21/2023 7:55 AM EST 12/21/2023 7:59 AM EST [facility] LAB BLOOD ORDERABLES Performing Organization Address City/[facility]/ZIP Co de Phone Number LABORATORY [address] [address] * (ABNORMAL) GLUCOSE METER, POINT OF CARE (12/20/2023 9:19 PM EST) Glucose Meter 246(H) 70 - 120 mg/dL 12/20/2023 10:09 PM EST [facility] Blood Whole blood specimen / Unknown 12/20/2023 9:19 PM EST 12/20/2023 10:09 PM EST [facility] LAB POINT OF CARE TE ST DOCKED DEVICE UNSOLICITED RESULTS Performing Organization Address [facility] Co de Phone Number [facility] [address] [place] [phone] * (ABNORMAL) GLUCOSE METER, POINT OF CARE (12/20/2023 4:51 PM EST) Glucose Meter 258(H) 70 - 120 mg/dL 12/20/2023 5:00 PM EST [facility] Blood Whole blood specimen / Unknown 12/20/2023 4:51 PM EST 12/20/2023 5:00 PM EST [facility] LAB POINT OF CARE TE ST DOCKED DEVICE UNSOLICITED RESULTS Performing Organization Address City/[facility] Co de Phone Number [facility] [address] [place] [address] * (ABNORMAL) GLUCOSE METER, POINT OF CARE (12/20/2023 11:43 AM EST) Glucose Meter 327(H) 70 - 120 mg/dL 12/20/2023 12:13 PM EST [facility] Blood Whole blood specimen / Unknown 12/20/2023 11:43 AM EST 12/20/2023 12:13 PM EST Ishkiana Thurston DO LAB POINT OF CARE TE ST DOCKED DEVICE UNSOLICITED RESULTS Performing Organization Address [facility] Co de Phone Number [facility] [address] [place] [address] * (ABNORMAL) GLUCOSE METER, POINT OF CARE (12/20/2023 8:16 AM EST) Glucose Meter 285(H) 70 - 120 mg/dL 12/20/2023 8:38 AM EST [facility] Blood Whole blood specimen / Unknown 12/20/2023 8:16 AM EST 12/20/2023 8:38 AM EST [facility] DO LAB POINT OF CARE TE ST DOCKED DEVICE UNSOLICITED RESULTS Performing Organization Address [facility] de Phone Number [facility] [address] [place] [address] * (ABNORMAL) HEMOGLOBIN A1C (12/20/2023 5:03 AM EST) Hemoglobin A1C 8.0(H) 4.0 - 5.6 % 12/20/2023 2:44 PM EST LABORATORY [facility] Comment:The use of HbA1c to monitor glycemic status is based on normal hemoglobin and HbA composition. This test should not be used in patients with abnormal hemoglobin that affects the half life of the red blood cell or the in vivo glycation rates. Estimated Average Glucose 183(H) <126 mg/dL 12/20/2023 2:44 PM EST LABORATORY [facility] Blood Venous blood specimen / Unknown Venipuncture / Unknown 12/20/2023 5:03 AM EST 12/20/2023 5:33 AM EST Annette JACKSON LAB BLOOD ORDERABLES Performing Organization Address City/[facility]/ZIP Co de Phone Number LABORATORY [facility] [address] [place] [address] * (ABNORMAL) CBC (12/20/2023 5:03 AM EST) WBC 8.07 4.00 - 10.80 K/uL 12/20/2023 5:39 AM EST LABORATORY [facility] RBC 3.21 3.85 - 5.15 M/uL 12/20/2023 5:39 AM EST LABORATORY GL HGB 9.2(L) 12.0 - 15.3 g/dL 12/20/2023 5:39 AM EST LABORATORY GL HCT 30.7(L) 36.0 - 45.2 % 12/20/2023 5:39 AM EST LABORATORY GL MCV 95.6 81.5 - 97.5 fL 12/20/2023 5:39 AM EST LABORATORY [facility] MCH 28.7 27.0 - 34.0 pg 12/20/2023 5:39 AM EST LABORATORY [facility] MCHC 30.0 32.0 - 36.0 g/dL 12/20/2023 5:39 AM EST LABORATORY [facility] RDW 15.8 11.5 - 15.5 % 12/20/2023 5:39 AM EST LABORATORY [facility] PLT 366 140 - 400 K/uL 12/20/2023 5:39 AM EST LABORATORY [facility] MPV 9.4 6.6 - 11.1 fL 12/20/2023 5:39 AM EST LABORATORY [facility] nRBCs 0 <=0 /100 WBCs 12/20/2023 5:39 AM EST LABORATORY [facility] Blood Venous blood specimen / Unknown Venipuncture / Unknown 12/20/2023 5:03 AM EST 12/20/2023 5:36 AM EST Annette A Elia [employer] LAB BLOOD ORDERABLES LABORATORY [address] [address] * (ABNORMAL) BASIC METABOLIC PANEL (12/20/2023 5:03 AM EST) BUN 28(H) 6 - 20 mg/dL 12/20/2023 6:00 AM EST LABORATORY GL Creatinine 1.2(H) 0.5 - 1.0 mg/dL 12/20/2023 6:00 AM EST LABORATORY GLH Estimated Glomerular Filtration Rate 52(L) >=60 mL/min 12/20/2023 6:00 AM EST LABORATORY [facility] Comment:eGFR is calculated b ased on the CKD-EPI 2020 equation Sodium 140 135 - 146 mmol/L 12/20/2023 6:00 AM EST LABORATORY GLH Potassium 3.7 3.5 - 5.1 mmol/L 12/20/2023 6:00 AM EST LABORATORY GL[facility] Chloride 91(L) 98 - 107 mmol/L 12/20/2023 6:00 AM EST LABORATORY GLH CO2 39(H) 22 - 32 mmol/L 12/20/2023 6:00 AM EST LABORATORY GLH Anion Gap 10 7 - 15 mmol/L 12/20/2023 6:00 AM EST LABORATORY GLH Glucose 272(H) 70 - 120 mg/dL 12/20/2023 6:00 AM EST LABORATORY GLH Calcium 8.8 8.4 - 10.2 mg/dL 12/20/2023 6:00 AM EST LABORATORY GL[facility] Blood Venous blood specimen / Unknown Venipuncture / Unknown 12/20/2023 5:03 AM EST 12/20/2023 5:36 AM EST Annette JACKSON LAB BLOOD ORDERABLES LABORATORY [address] [address] * (ABNORMAL) GLUCOSE METER, POINT OF CARE (12/19/2023 9:37 PM EST) [facility] Signature Glucose Meter 479(H) 70 - 120 mg/dL 12/20/2023 1:44 AM EST [facility] Blood Whole blood specimen / Unknown 12/19/2023 9:37 PM EST 12/20/2023 1:44 AM EST Hermilo Dodd DO LAB POINT OF CARE TEST DOCKED DEVICE UNSOLICITED RESULTS [facility] [address] [place] [address] * (ABNORMAL) BLOOD GAS, ARTERIAL (12/19/2023 8:40 PM EST) Temperature 37.0 C 12/19/2023 8:54 PM EST LABORATORY [facility] pH, Arterial 7.416 7.350 - 7.450 units 12/19/2023 8:54 PM EST LABORATORY [facility] pCO2, Arterial 62.1(HH) 35.0 - 45.0 mmHg 12/19/2023 8:54 PM EST LABORATORY [facility] pO2, Arterial 78.9 75.0 - 100.0 mmHg 12/19/2023 8:54 PM EST LABORATORY [facility] Base Excess, Arterial 13.0(H) -2.0 - 2.0 mmol/L 12/19/2023 8:54 PM EST LABORATORY [facility] Hemoglobin, Whole Blood 9.4(L) 12.0 - 15.3 g/dL 12/19/2023 8:54 PM EST LABORATORY [facility] Oxyhemoglobin, Arterial 92.7(L) 94.0 - 99.0 % total Hgb 12/19/2023 8:54 PM EST LABORATORY [facility] Carboxyhemoglob in, Whole Blood 2.2(H) <=1.5 % total Hgb 12/19/2023 8:54 PM EST LABORATORY [facility] Comment:Smokers: 0-9.0 % Methemoglobin, Whole Blood 0.5 <=1.5 % total Hgb 12/19/2023 8:54 PM EST LABORATORY [facility] Reduced Hemoglobin, Arterial 4.6 0.0 - 5.0 % total Hgb 12/19/2023 8:54 PM EST LABORATORY [facility] O2 Content, Arterial 12.4(L) 15.0 - 24.0 %vol 12/19/2023 8:54 PM EST LABORATORY [facility] FiO2 40 % 12/19/2023 8:54 PM EST LABORATORY [facility] Comment:bipap 10/5 O2 Flow, Arterial Not Provided L/min 12/19/2023 8:54 PM EST LABORATORY [facility] Bicarbonate, Whole Blood 39.2(H) 23.0 - 31.0 mmol/L 12/19/2023 8:54 PM EST LABORATORY [facility] Blood Arterial blood specimen / Unknown Arterial Puncture / Unknown 12/19/2023 8:40 PM EST 12/19/2023 8:44 PM EST Annette JACKSON LAB BLOOD ORDERABLES Performing Organization Address [facility] Co de Phone Number LABORATORY [facility] [address] [place] [address] * (ABNORMAL) GLUCOSE METER, POINT OF CARE (12/19/2023 6:12 PM EST) Glucose Meter 418(H) 70 - 120 mg/dL 12/19/2023 6:15 PM EST [facility] Blood Whole blood specimen / Unknown 12/19/2023 6:12 PM EST 12/19/2023 6:15 PM EST [facility] LAB POINT OF CARE TEST DOCKED DEVICE UNSOLICITED RESULTS Performing Organization Address [facility] Phone Number [facility] [address] [place] [phone] * (ABNORMAL) GLUCOSE METER, POINT OF CARE (12/19/2023 5:38 PM EST) Glucose Meter 356(H) 70 - 120 mg/dL 12/19/2023 5:44 PM EST [facility] Blood Whole blood specimen / Unknown 12/19/2023 5:38 PM EST 12/19/2023 5:43 PM EST [facility] POINT OF CARE TEST DOCKED DEVICE UNSOLICITED RESULTS Performing Organization Address [facility] de Phone Number [facility] [address] [place] [address] * (ABNORMAL) BASIC METABOLIC PANEL (12/19/2023 5:34 PM EST) BUN 23(H) 6 - 20 mg/dL 12/19/2023 6:02 PM EST LABORATORY GL Creatinine 1.1(H) 0.5 - 1.0 mg/dL 12/19/2023 6:02 PM EST LABORATORY GL Estimated Glomerular Filtration Rate 53(L) >=60 mL/min 12/19/2023 6:02 PM EST LABORATORY [facility] Comment:eGFR is calculated b ased on the CKD-EPI 2020 equation Sodium 138 135 - 146 mmol/L 12/19/2023 6:02 PM EST LABORATORY [facility] Potassium 3.4(L) 3.5 - 5.1 mmol/L 12/19/2023 6:02 PM EST LABORATORY [facility] Chloride 87(L) 98 - 107 mmol/L 12/19/2023 6:02 PM EST LABORATORY [facility] CO2 39(H) 22 - 32 mmol/L 12/19/2023 6:02 PM EST LABORATORY [facility] Anion Gap 12 7 - 15 mmol/L 12/19/2023 6:02 PM EST LABORATORY [facility] Glucose 394(H) 70 - 120 mg/dL 12/19/2023 6:02 PM EST LABORATORY [facility] Calcium 8.4 8.4 - 10.2 mg/dL 12/19/2023 6:02 PM EST LABORATORY [facility] Blood Venous blood specimen / Unknown Venipuncture / Unknown 12/19/2023 5:34 PM EST 12/19/2023 5:38 PM EST Annette Rodrigez [employer] LAB BLOOD ORDERABLES LABORATORY [address] [address] * MRSA SCREEN, PCR (12/19/2023 5:20 PM EST) [facility] MRSA PCR Result Negative Negative 10:37 PM EST LABORATORY [facility] [place] Comment:No Methicillin resis tant Staphylococcus aureus detected by PCR (amplified probe). Upper Respiratory Swab of internal nose / Unknown Non-blood Collection / Unknown 12/19/2023 5:20 PM EST 12/19/2023 5:23 PM EST Annette CLAUDIONP LAB MICRO - GENERAL ORDERABLES LABORATORY [facility] [place] [address] [place] [address] * (ABNORMAL) BLOOD GAS, ARTERIAL (12/19/2023 4:54 PM EST) [facility] Temperature 37.0 C 12/19/2023 5:12 PM EST LABORATORY [facility] pH, Arterial 7.421 7.350 - 7.450 units 12/19/2023 5:12 PM EST LABORATORY [facility] pCO2, Arterial 66.5(HH) 35.0 - 45.0 mmHg 12/19/2023 5:12 PM EST LABORATORY [facility] pO2, Arterial 65.2(L) 75.0 - 100.0 mmHg 12/19/2023 5:12 PM EST LABORATORY [facility] Base Excess, Arterial 15.7(H) -2.0 - 2.0 mmol/L 12/19/2023 5:12 PM EST LABORATORY [facility] Hemoglobin, Whole Blood 9.6(L) 12.0 - 15.3 g/dL 12/19/2023 5:12 PM EST LABORATORY [facility] Oxyhemoglobin, Arterial 88.9(L) 94.0 - 99.0 % total Hgb 12/19/2023 5:12 PM EST LABORATORY [facility] Carboxyhemoglob in, Whole Blood 2.7(H) <=1.5 % total Hgb 12/19/2023 5:12 PM EST LABORATORY [facility] Comment:Smokers: 0-9.0 % Methemoglobin, Whole Blood 0.5 <=1.5 % total Hgb 12/19/2023 5:12 PM EST LABORATORY [facility] Reduced Hemoglobin, Arterial 7.9(H) 0.0 - 5.0 % total Hgb 12/19/2023 5:12 PM EST LABORATORY [facility] O2 Content, Arterial 12.1(L) 15.0 - 24.0 %vol 12/19/2023 5:12 PM EST LABORATORY [facility] FiO2 Not Provided % 12/19/2023 5:12 PM EST LABORATORY [facility] O2 Flow, Arterial 5 L/min 12/19/2023 5:12 PM EST LABORATORY [facility] Bicarbonate, Whole Blood 42.4(H) 23.0 - 31.0 mmol/L 12/19/2023 5:12 PM EST LABORATORY [facility] Blood Arterial blood specimen / Unknown Arterial Puncture / Unknown 12/19/2023 4:54 PM EST 12/19/2023 5:01 PM EST Annette JACKSON LAB BLOOD ORDERABLES LABORATORY [facility] [address] [place] [address] * CT PULMONARY EMBOLUS W CONTRAST (12/19/2023 2:48 PM EST) Anatomical Region Laterality Modality Chest, Cardio, Body Computed Ritesh ography 12/19/2023 2:41 PM EST Impressions 12/19/2023 3:09 PM EST IMPRESSION: Evaluation for pulmonary embolism is limited by bolus timing and motion degradation. No evidence of pulmonary embolism to the level of the segmental arteries. COMMENTS: The presence of pulmonary emphysema on CT is an independent risk factor for lung cancer. In the absence of a history or active diagnosis of lung cancer, it is recommended that this patient with emphysema be evaluated for enrollment in a low dose CT lung cancer screening program. THIS DOCUMENT HAS BEEN ELECTRONICALLY SIGNED BY RADHA HUGHES MD Narrative 12/19/2023 3:09 PM EST PROCEDURE INFORMATION: Exam: CTA Chest With Contrast Exam date and time: 12/19/2023 2:41 PM Age: 63 years old Clinical indication: Other: Shortness of breath, lower extremity swelling/calf pain, elevated d-dimer, elevated cardiac enzymes TECHNIQUE: Imaging protocol: Computed tomographic angiography of [...] clinical indication); or iterative reconstruction. Contrast material: OPTIRAY 350; Contrast volume: 100 ml; Contrast route: INTRAVENOUS (IV); COMPARISON: 1. CT PULMONARY EMBOLUS W 09/17/2022 4:[address] CHEST WO CONTRAST 09/09/2023 1:20 PM FINDINGS: Pulmonary arteries: Evaluation for pulmonary [...] changes in the spine. Soft tissues: Unremarkable. Procedure Note Radha Hughes MD - 12/19/2023 PROCEDURE INFORMATION: Exam: CTA Chest With Contrast Exam date and time: 12/19/2023 2:41 PM Age: 63 years old Clinical indication: Other: Shortness of breath, lower extremityswelling/calf pain, elevated d-dimer, elevated cardiac enzymes TECHNIQUE: Imaging protocol: Computed tomographic angiography of [...] clinical indication); or iterative reconstruction. Contrast material: OPTIRAY 350; Contrast volume: 100 ml; Contrast route: INTRAVENOUS (IV); COMPARISON: 1. CT PULMONARY EMBOLUS W 09/17/2022 4:[address] CHEST WO CONTRAST 09/09/2023 1:20 PM FINDINGS: Pulmonary arteries: Evaluation for pulmonary embolism is limited by bolus timing and motion degradation. No evidence of pulmonary embolism to thelevel of the segmental arteries. Aorta: There are mild atherosclerotic calcifications of the aorta and arch vessels. Thyroid: Visualized portions of the thyroid gland are unremarkable. Lungs: Bilateral atelectasis. Mild emphysematous changes. No evidence of suspicious pulmonary nodule or focal consolidation. Debris is identifiedin the trachea. Pleural spaces: No evidence of pleural effusion or pneumothorax. Heart: The heart is not abnormally enlarged. Mediastinal space: Unremarkable esophagus. Lymph nodes: No significant axillary, mediastinal, or hilarlymphadenopathy. Liver: 1 cm early enhancing hepatic lesion on series 4, image 63 is incompletely characterized but may represent a flash filling hemangioma. Bones/joints: Degenerative changes in the spine. Soft tissues: Unremarkable. IMPRESSION IMPRESSION: Evaluation for pulmonary embolism is limited by bolus timing and motion degradation. No evidence of pulmonary embolism to the level of thesegmental arteries. COMMENTS: The presence of pulmonary emphysema on CT is an independent risk factorfor lung cancer. In the absence of a history or active diagnosis of lungcancer, it is recommended that this patient with emphysema be evaluated forenrollment in a low dose CT lung cancer screening program. THIS DOCUMENT HAS BEEN ELECTRONICALLY SIGNED BY RADHA HUGHES MD Zac Ponce DO RAD CT * (ABNORMAL) PROCALCITONIN (12/19/2023 2:00 PM EST) Procalcitonin 1.99(H) <0.10 ng/mL 12/19/2023 8:24 PM EST LABORATORY [facility] Blood Venous blood specimen / Unknown Venipuncture / Unknown 12/19/2023 2:00 PM EST 12/19/2023 2:06 PM EST Narrative LABORATORY [facility] - 12/19/2023 8:24 PM EST Less than 0.5 ng/mL: Low risk for progression to sepsis. Review patients condition for localized infections. 0.5 to 2.0 ng/mL: Intermediate risk for progresion to sepsis. Review underlying conditions. Recommend repeat PCT after 6 hours has elapsed. Greater than 2.0 ng/mL: high risk for progression to sepsis unless other causes are known. Zac Ponce DO LAB BLOOD ORDERABLES Performing Organization Address City/[facility] Co de Phone Number LABORATORY [address] [address] * (ABNORMAL) TROPONIN T, HIGH SENSITIVITY (12/19/2023 2:00 PM EST) Troponin T, High Sensitivity 75(H) <=14 ng/L 12/19/2023 2:30 PM EST LABORATORY [facility] Blood Venous blood specimen / Unknown Venipuncture / Unknown 12/19/2023 2:00 PM EST 12/19/2023 2:06 PM EST Zac Ponce DO LAB BLOOD ORDERABLES LABORATORY [facility] [address] [place] [address] * (ABNORMAL) BLOOD GAS, VENOUS (12/19/2023 1:42 PM EST) Temperature 37.0 C 12/19/2023 1:51 PM EST LABORATORY [facility] pH, Venous 7.421 7.320 - 7.430 units 12/19/2023 1:51 PM EST LABORATORY [facility] pCO2, Venous 73.0(H) 40.0 - 60.0 mmHg 12/19/2023 1:51 PM EST LABORATORY [facility] pO2, Venous 29.7 25.0 - 50.0 mmHg 12/19/2023 1:51 PM EST LABORATORY [facility] Base Excess, Venous 19.1(H) -2.0 - 2.0 mmol/L 12/19/2023 1:51 PM EST LABORATORY [facility] Hemoglobin, Whole Blood 9.9(L) 12.0 - 15.3 g/dL 12/19/2023 1:51 PM EST LABORATORY [facility] Oxyhemoglobin, Venous 45.0 40.0 - 85.0 % total Hgb 12/19/2023 1:51 PM EST LABORATORY [facility] Carboxyhemoglobi n, Whole Blood 2.2(H) <=1.5 % total Hgb 12/19/2023 1:51 PM EST LABORATORY [facility] Comment:Smokers: 0-9.0 % Methemoglobin, Whole Blood 0.9 <=1.5 % total Hgb 12/19/2023 1:51 PM EST LABORATORY [facility] Reduced Hemoglobin, Venous 51.9 % total Hgb 12/19/2023 1:51 PM EST LABORATORY [facility] O2 Content, Venous 6.3(L) 7.0 - 18.0 %vol 12/19/2023 1:51 PM EST LABORATORY [facility] Bicarbonate, Whole Blood 46.6(H) 23.0 - 31.0 mmol/L 12/19/2023 1:51 PM EST LABORATORY [facility] Blood Venous blood specimen / Unknown Venipuncture / Unknown 12/19/2023 1:42 PM EST 12/19/2023 1:46 PM EST Zac D Hark DO LAB BLOOD ORDERABLES [place] [address] * XR CHEST 2 VIEWS (12/19/2023 1:30 PM EST) Anatomical Region Laterality Modality Chest Digital Radiogra phy 12/19/2023 1:45 PM EST Impressions 12/19/2023 1:34 PM EST IMPRESSION: No evidence of acute abnormality. THIS DOCUMENT HAS BEEN ELECTRONICALLY SIGNED BY RADHA HUGHES MD Narrative 12/19/2023 1:34 PM EST PROCEDURE INFORMATION: Exam: XR Chest Exam date and time: 12/19/2023 1:45 PM Age: 63 years old Clinical indication: Other: SOB, weakness; Additional info: Chest pain TECHNIQUE: Imaging protocol: Radiologic exam of the chest. Views: 2 views. COMPARISON: 1. CT CHEST WO CONTRAST 09/09/2023 1:20 PM 2. DX XR CHEST 1 VIEW 09/08/2023 12:03 PM FINDINGS: Lungs: No evidence of focal consolidation. Pleural spaces: No evidence of pleural effusion or pneumothorax. Heart/Mediastinum: Stable cardiomediastinal silhouette. Bones/joints: Postoperative changes of the bilateral clavicles. New para grafts Procedure Note Radha Hughes MD - 12/19/2023 PROCEDURE INFORMATION: Exam: XR Chest Exam date and time: 12/19/2023 1:45 PM Age: 63 years old Clinical indication: Other: SOB, weakness; Additional info: Chest pain TECHNIQUE: Imaging protocol: Radiologic exam of the chest. Views: 2 views. COMPARISON: 1. CT CHEST WO CONTRAST 09/09/2023 1:20 PM 2. DX XR CHEST 1 VIEW 09/08/2023 12:03 PM FINDINGS: Lungs: No evidence of focal consolidation. Pleural spaces: No evidence of pleural effusion or pneumothorax. Heart/Mediastinum: Stable cardiomediastinal silhouette. Bones/joints: Postoperative changes of the bilateral clavicles. New paragrafts IMPRESSION IMPRESSION: No evidence of acute abnormality. THIS DOCUMENT HAS BEEN ELECTRONICALLY SIGNED BY RADHA HUGHES MD Zac D Hark DO RADIOLOGY (RAD GENER AL) * VASC DUPLEX VENOUS LE BILAT (12/19/2023 1:05 PM EST) Anatomical Region Laterality Modality Lower Extremity, Vascular Ultras ound Impressions 12/19/2023 3:17 PM EST : Right lower extremity with no evidence of acute deep venous thrombosis. Left lower extremity with no evidence of acute deep venous thrombosis. Narrative 12/19/2023 3:17 PM EST VASCULAR LAB RESULTS DATE OF EXAM: 12/19/23 PRESENTING CONDITIONS: Leg pain, hip pain, SOB Immediately before proceeding with the vascular lab procedure reported below, the identity of the patient, the correct exam and the correct procedural site were verified. PHYSICIAN REPORT: Lower Extremity Venous Duplex Examination Color flow Doppler, spectral analysis, and transducer compression techniques were applied during this ultrasound image examination. RIGHT LOWER EXTREMITY On duplex examination, the right common femoral vein, the sapheno-femoral junction, the femoral vein in the thigh and popliteal vein are all free of internal echoes and demonstrate normal transducer compressibility during oakley scale imaging and normal respiratory and augmentation response during Doppler interrogation. The posterior tibial veins and peroneal veins demonstrate no evidence of thrombosis. LEFT LOWER EXTREMITY On duplex examination, the left common femoral vein, the sapheno-femoral junction, the femoral vein in the thigh, and popliteal vein are all free of internal echoes and demonstrate normal transducer compressibility during oakley scale imaging and normal respiratory and augmentation response during Doppler interrogation. The posterior tibial veins and peroneal veins demonstrate no evidence of thrombosis. Zac Ponce DO RAD VASCULAR * RESPIRATORY PATHOGEN PANEL, PCR (12/19/2023 12:50 PM EST) Adenovirus by PCR Negative Negative 024 2:41 PM EST LABORATORY [facility] Coronavirus 229E by PCR Negative Negative 12/19/2023 2:41 PM EST LABORATORY [facility] Coronavirus HKU1 by PCR Negative Negative 12/19/2023 2:41 PM EST LABORATORY [facility] Coronavirus NL63 by PCR Negative Negative 12/19/2023 2:41 PM EST LABORATORY [facility] Coronavirus OC43 by PCR Negative Negative 12/19/2023 2:41 PM EST LABORATORY [facility] Coronavirus SARS-CoV-2 by PCR Negative Negative 12/19/2023 2:41 PM EST LABORATORY [facility] Human Metapneumovirus by PCR Negative Negative 12/19/2023 2:41 PM EST LABORATORY [facility] Rhinovirus/Enterovi jay by PCR Negative Negative 12/19/2023 2:41 PM EST LABORATORY [facility] Influenza A Virus by PCR Negative Negative 12/19/2023 2:41 PM EST LABORATORY [facility] Influenza B Virus by PCR Negative Negative 12/19/2023 2:41 PM EST LABORATORY [facility] Parainfluenza Virus 1 by PCR Negative Negative 12/19/2023 2:41 PM EST LABORATORY [facility] Parainfluenza Virus 2 by PCR Negative Negative 12/19/2023 2:41 PM EST LABORATORY [facility] Parainfluenza Virus 3 by PCR Negative Negative 12/19/2023 2:41 PM EST LABORATORY [facility] Parainfluenza Virus 4 by PCR Negative Negative 12/19/2023 2:41 PM EST LABORATORY [facility] Respiratory Syncytial Virus by PCR Negative Negative 12/19/2023 2:41 PM EST LABORATORY [facility] Bordetella pertussis by PCR Negative Negative 12/19/2023 2:41 PM EST LABORATORY [facility] Chlamydia pneumoniae by PCR Negative Negative 12/19/2023 2:41 PM EST LABORATORY [facility] Mycoplasma pneumoniae by PCR Negative Negative 12/19/2023 2:41 PM EST LABORATORY [facility] Bordetella parapertussis by PCR Negative Negative 12/19/2023 2:41 PM EST LABORATORY [facility] Comment: The primers that detect Rhinovirus may cross react with some Enterorviruses. The validation of bronchial specimens, tracheal aspirates, and throats for this assay was developed and performance characteristics determined by [employer]. The validation of alternate specimen types has not been cleared or approved by the U.S. Food and Drug Administration (FDA). It has been determined that such clearance or approval is not necessary. Upper Respiratory Mid-turbinate nasal swab / Unknown Non-blood Collection / Unknown 12/19/2023 12:50 PM EST 12/19/2023 12:55 PM EST Zac Ponce DO LAB MICRO - GENERAL ORDERABLES [address] [address] * (ABNORMAL) PROCALCITONIN (12/19/2023 12:36 PM EST) Procalcitonin 2.02(H) <0.10 ng/mL 12/19/2023 5:02 PM EST LABORATORY [facility] Blood Venous blood specimen / Unknown Venipuncture / Unknown 12/19/2023 12:36 PM EST 12/19/2023 12:46 PM EST Narrative LABORATORY [facility] - 12/19/2023 5:02 PM EST Less than 0.5 ng/mL: Low risk for progression to sepsis. Review patients condition for localized infections. 0.5 to 2.0 ng/mL: Intermediate risk for progresion to sepsis. Review underlying conditions. Recommend repeat PCT after 6 hours has elapsed. Greater than 2.0 ng/mL: high risk for progression to sepsis unless other causes are known. Annette JACKSON LAB BLOOD ORDERABLES Performing Organization Address City/[facility] Co de Phone Number LABORATORY [address] [address] * EXTRA ALANIZ TOP (12/19/2023 12:36 PM EST) Blood Venous blood specimen / Unknown 12/19/2023 12:36 PM EST 12/19/2023 1:07 PM EST Zac Ponce DO LAB BLOOD ORDERABLES Performing Organization Address [facility] Co de Phone Number LABORATORY [address] [address] * BNP, NT-PRO (12/19/2023 12:36 PM EST) BNP, NT-Pro 94 <300 pg/mL 12/19/2023 1:36 PM EST LABORATORY [facility] Blood Venous blood specimen / Unknown Venipuncture / Unknown 12/19/2023 12:36 PM EST 12/19/2023 12:46 PM EST Narrative LABORATORY [facility] - 12/19/2023 1:36 PM EST Exclude Heart Failure: <300 pg/mL Diagnose Heart Failure: Age <50 yr: >450 pg/mL 50-75 yr: >900 pg/mL >75 yr: >1800 pg/mL GFR is 30-59 mL/min: >1200 pg/mL or Age-adjusted values GFR <30 mL/min: do not use, not reliable Prognostic threshold: 1000 pg/mL Zac Ponce LAB BLOOD ORDERABLES Performing Organization Address [facility] Co de Phone Number LABORATORY [address] [address] * PHOSPHORUS (12/19/2023 12:36 PM EST) Phosphorus 2.6 2.5 - 4.8 mg/dL 12/19/2023 1:36 PM EST LABORATORY [facility] Blood Venous blood specimen / Unknown Venipuncture / Unknown 12/19/2023 12:36 PM EST 12/19/2023 12:46 PM EST Zac Ponce LAB BLOOD ORDERABLES Performing Organization Address [facility] Co de Phone Number LABORATORY [address] [phone] * MAGNESIUM (12/19/2023 12:36 PM EST) Magnesium 1.9 1.5 - 2.6 mg/dL 12/19/2023 1:36 PM EST LABORATORY [facility] Blood Venous blood specimen / Unknown Venipuncture / Unknown 12/19/2023 12:36 PM EST 12/19/2023 12:46 PM EST Zac [employer] LAB BLOOD ORDERABLES Performing Organization Address [facility] de Phone Number LABORATORY [address] [id number] * (ABNORMAL) D-DIMER (12/19/2023 12:36 PM EST) D-Dimer 1.11(H) <0.50 ug/mL FEU 12/19/2023 1:20 PM EST LABORATORY [facility] Blood Venous blood specimen / Unknown Venipuncture / Unknown 12/19/2023 12:36 PM EST 12/19/2023 12:46 PM EST [facility] LABORATORY [facility] - 12/19/2023 1:20 PM EST Rheumatoid factor at a level above 50 IU/mL may lead to an overestimation of the D-dimer level. A normal D-dimer result (<0.50 ug/mL FEU) has a negative predictive value of approximately 95% for the exclusion of acute pulmonary embolism (PE) or deep vein thrombosis when there is low or moderate pretest PE probability. Increased D-dimer values are abnormal but do not indicate a specific disease state and the D-dimer increase does not definitively correlate with clinical severity of disease. Zac Ponce DO LAB BLOOD ORDERABLES [place] [address] * (ABNORMAL) DIFFERENTIAL, AUTOMATED (12/19/2023 12:36 PM EST) WBC 8.02 4.00 - 10.80 K/uL 12/19/2023 12:51 PM EST LABORATORY [facility] Neutrophils % 78.3(H) 40.0 - 75.0 % 12/19/2023 12:51 PM EST LABORATORY [facility] Lymphocytes % 12.3(L) 18.0 - 42.0 % 12/19/2023 12:51 PM EST LABORATORY [facility] Monocytes % 6.9 1.0 - 11.0 % 12/19/2023 12:51 PM EST LABORATORY [facility] Eosinophils % 1.9 0.0 - 6.0 % 12/19/2023 12:51 PM EST LABORATORY GL Basophils % 0.1 0.0 - 2.0 % 12/19/2023 12:51 PM EST LABORATORY [facility] Immature Granulocytes % 0.5 0.0 - 2.0 % 12/19/2023 12:51 PM EST LABORATORY [facility] Absolute Neutrophils 6.28 1.80 - 7.70 K/uL 12/19/2023 12:51 PM EST LABORATORY [facility] Absolute Lymphocytes 0.99(L) 1.00 - 4.80 K/ul 12/19/2023 12:51 PM EST LABORATORY [facility] Absolute Monocytes 0.55 0.00 - 1.10 K/uL 12/19/2023 12:51 PM EST LABORATORY GL Absolute Eosinophils 0.15 0.00 - 0.70 K/uL 12/19/2023 12:51 PM EST LABORATORY GL Absolute Basophils 0.01 0.00 - 0.20 K/uL 12/19/2023 12:51 PM EST LABORATORY GL Absolute Immature Granulocytes 0.04 0.00 - 0.20 K/uL 12/19/2023 12:51 PM EST LABORATORY GL Blood Venous blood specimen / Unknown Venipuncture / Unknown 12/19/2023 12:36 PM EST 12/19/2023 12:46 PM EST Zac Ponce DO LAB BLOOD ORDERABLES Performing Organization Address City/State/[facility] Co de Phone Number LABORATORY [address] [address] * (ABNORMAL) CBC (12/19/2023 12:36 PM EST) WBC 8.02 4.00 - 10.80 K/uL 12/19/2023 12:51 PM EST LABORATORY GL RBC 3.39 3.85 - 5.15 M/uL 12/19/2023 12:51 PM EST LABORATORY [facility] HGB 10.2(L) 12.0 - 15.3 g/dL 12/19/2023 12:51 PM EST LABORATORY [facility] HCT 32.9(L) 36.0 - 45.2 % 12/19/2023 12:51 PM EST LABORATORY [facility] MCV 97.1 81.5 - 97.5 fL 12/19/2023 12:51 PM EST LABORATORY GL MCH 30.1 27.0 - 34.0 pg 12/19/2023 12:51 PM EST LABORATORY [facility] MCHC 31.0 32.0 - 36.0 g/dL 12/19/2023 12:51 PM EST LABORATORY [facility] RDW 16.4 11.5 - 15.5 % 12/19/2023 12:51 PM EST LABORATORY [facility] PLT 374 140 - 400 K/uL 12/19/2023 12:51 PM EST LABORATORY [facility] MPV 9.3 6.6 - 11.1 fL 12/19/2023 12:51 PM EST LABORATORY [facility] nRBCs 0 <=0 /100 WBCs 12/19/2023 12:51 PM EST LABORATORY [facility] Blood Venous blood specimen / Unknown Venipuncture / Unknown 12/19/2023 12:36 PM EST 12/19/2023 12:46 PM EST Zac Ospina [employer] LAB BLOOD ORDERABLES Performing Organization Address City/[facility]/ZIP Co de Phone Number LABORATORY [address] [address] * PT INR (12/19/2023 12:36 PM EST) Prothrombin Time 13.3 11.6 - 15.2 seconds 12/19/2023 1:06 PM EST LABORATORY [facility] INR 1.0 0.8 - 1.2 12/19/2023 1:06 PM EST LABORATORY [facility] Blood Venous blood specimen / Unknown Venipuncture / Unknown 12/19/2023 12:36 PM EST 12/19/2023 12:46 PM EST Narrative LABORATORY [facility] - 12/19/2023 1:06 PM EST Warfarin Therapy INR: 2.0-3.0 conventional anticoagulation INR: 2.5-3.5 high intensity anticoagulation Zac Ospina [employer] LAB BLOOD ORDERABLES Performing Organization Address [facility] Phone Number LABORATORY [address] [address] * (ABNORMAL) TROPONIN T, HIGH SENSITIVITY (12/19/2023 12:36 PM EST) Troponin T, High Sensitivity 84(H) <=14 ng/L 12/19/2023 1:03 PM EST LABORATORY [facility] Blood Venous blood specimen / Unknown Venipuncture / Unknown 12/19/2023 12:36 PM EST 12/19/2023 12:46 PM EST Zac Ospina [employer] LAB BLOOD ORDERABLES LABORATORY [facility] [address] [place] [address] * BNP, NT-PRO (12/19/2023 12:36 PM EST) Pathologist [facility] BNP, NT-Pro 94 <300 pg/mL 12/19/2023 2:55 PM EST LABORATORY [facility] Blood Venous blood specimen / Unknown Venipuncture / Unknown 12/19/2023 12:36 PM EST 12/19/2023 12:46 PM EST Narrative LABORATORY [facility] - 12/19/2023 2:55 PM EST Exclude Heart Failure: <300 pg/mL Diagnose Heart Failure: Age <50 yr: >450 pg/mL 50-75 yr: >900 pg/mL >75 yr: >1800 pg/mL GFR is 30-59 mL/min: >1200 pg/mL or Age-adjusted values GFR <30 mL/min: do not use, not reliable Prognostic threshold: 1000 pg/mL Zac Ponce DO LAB BLOOD ORDERABLES LABORATORY [facility] [address] [place] [address] * (ABNORMAL) COMPREHENSIVE METABOLIC PANEL (12/19/2023 12:36 PM EST) [facility] BUN 24(H) 6 - 20 mg/dL 12/19/2023 1:04 PM EST LABORATORY [facility] Creatinine 1.2(H) 0.5 - 1.0 mg/dL 12/19/2023 1:04 PM EST LABORATORY GL Estimated Glomerular Filtration Rate 49(L) >=60 mL/min 12/19/2023 1:04 PM EST LABORATORY GL Comment:eGFR is calculated b ased on the CKD-EPI 2020 equation Sodium 141 135 - 146 mmol/L 12/19/2023 1:04 PM EST LABORATORY [facility] Potassium 2.7(L) 3.5 - 5.1 mmol/L 12/19/2023 1:04 PM EST LABORATORY GL Chloride 87(L) 98 - 107 mmol/L 12/19/2023 1:04 PM EST LABORATORY [facility] CO2 42(H) 22 - 32 mmol/L 12/19/2023 1:04 PM EST LABORATORY [facility] Anion Gap 12 7 - 15 mmol/L 12/19/2023 1:04 PM EST LABORATORY [facility] Glucose 240(H) 70 - 120 mg/dL 12/19/2023 1:04 PM EST LABORATORY [facility] Albumin 3.8 3.8 - 5.0 g/dL 12/19/2023 1:04 PM EST [facility] AST 20 10 - 35 U/L 12/19/2023 1:04 PM EST [facility] Alkaline Phosphatase 120 35 - 130 U/L 12/19/2023 1:04 PM EST [facility] Bilirubin, Total 0.3 <=1.2 mg/dL 12/19/2023 1:04 PM EST [facility] Calcium 8.9 8.4 - 10.2 mg/dL 12/19/2023 1:04 PM EST [facility] Protein 6.6 6.0 - 8.3 g/dL 12/19/2023 1:04 PM EST [facility] ALT 12 10 - 35 U/L 12/19/2023 1:04 PM EST [facility] Blood Venous blood specimen / Unknown Venipuncture / Unknown 12/19/2023 12:36 PM EST 12/19/2023 12:46 PM EST Zac Ponce DO LAB BLOOD ORDERABLES Performing Organization Address City/[facility] Co de Phone Number LABORATORY [address] [id number] * EXTRA LIGHT BLUE TOP (12/19/2023 12:36 PM EST) Blood Venous blood specimen / Unknown Venipuncture / Unknown 12/19/2023 12:36 PM EST 12/19/2023 12:46 PM EST Zac Ponce DO LAB BLOOD ORDERABLES LABORATORY [address] [address] * EKG (12/19/2023 12:27 PM EST) 12/19/2023 12:2 7 PM EST Narrative Procedure Note Coretta Callaway, DO - 12/19/2023 12:27 PM EST REASON FOR STUDY: SOB CONCLUSIONS: Sinus rhythm with occasional Premature ventricular complexes Biatrial enlargement Possible Anterior infarct , age undetermined Abnormal ECG When compared with ECG of 08-SEP-2023 11:51, Premature ventricular complexes are now Present Ventricular Rate: 96 Atrial Rate: 96 RI Interval: 148 QRS Duration: 82 QT/QTc: 356/449 ms P-R-T Yeoman: 78 : 60 : 52 degrees Zac Ponce DO EKG [facility] documented in this encounter Visit Diagnoses Diagnosis Acute on chronic respiratory failure with hypoxia and hypercapnia (HCC)- Primary Shortness of breath COPD exacerbation (HCC) Obstructive chronic bronchitis with exacerbation Acute hypokalemia Hypopotassemia Chest pain Chest pain, unspecified Hypokalemia Hypopotassemia COPD exacerbation (HCC) Obstructive chronic bronchitis with exacerbation Type 2 diabetes mellitus with stage 3a chronic kidney disease, without long-term current use of insulin (HCC) Tobacco use disorder Recurrent major depressive disorder, in partial remission (HCC) Chronic diastolic heart failure (HCC) Chronic diastolic heart failure COPD, group D, by GOLD 2017 classification (HCC) Chronic hypoxemic respiratory failure (HCC) Chronic respiratory failure Bilateral lower extremity edema Edema Personal history of pulmonary embolism Chronic anticoagulation Long-term (current) use of anticoagulants Pain in both lower legs Acute metabolic encephalopathy documented in this encounter Administered Medications Inactive Administered Medications - up to 3 most recent administrations Medication Order MAR Action Action Date Dose Rate Site Acetaminophen (Tylenol) tab 975 mg 975 mg, Oral, ONCE, On Sun12/19/23 at 1515, For 1 dose, Maximum of 4 grams (4000 mg) per day. Given 12/19/2023 2:57 PM EST 975 mg Acetaminophen (Tylenol) tab 975 mg 975 mg, Oral, TID 06;12;18, First dose (after last modification) on Sun12/19/23 at 1915, Until Discontinued, Maximum of 4 grams (4000 mg) per day. Given 12/23/2023 12:16 PM EST 975 mg Given 12/23/2023 5:53 AM EST 975 mg Given 12/22/2023 5:23 PM EST 975 mg Acetylcysteine (NAC) cap 600 mg 600 mg, Oral, BID (.AM/PM), First dose on Sun12/19/23 at 2100, Until Discontinued, GIVE WITH DIET COLA Given 12/22/2023 8:09 AM EST 600 mg Given 12/21/2023 8:21 PM EST 600 mg Given 12/21/2023 8:53 AM EST 600 mg Albuterol One-Hour Nebulization 10 mg 10 mg, Nebulizer, ONCE, On Sun12/19/23 at 1545, For 1 dose, Take contents of 4 x 2.5mg/3mL albuterol nebs (TOTAL 10mg/12mL) and DILUTE with normal saline for inhalation to total volume of 20 mL. Nebulize over 60 minutes using the Nubimetricsrt Hi-Rolly or MistyFinity device. Given 12/19/2023 3:34 PM EST 10 mg Albuterol Sulfate (Proventil) (2.5 MG/3ML) 0.083% inhalation solution 2.5 mg 2.5 mg, Nebulizer, RESPQID, First dose on Sun12/19/23 at 1900, Until Discontinued Given 12/23/2023 10:23 AM EST 2.5 mg Given 12/23/2023 7:21 AM EST 2.5 mg Given 12/22/2023 6:52 PM EST 2.5 mg Albuterol Sulfate (Proventil) (2.5 MG/3ML) 0.083% inhalation solution 2.5 mg 2.5 mg, Nebulizer, Q4H PRN Dyspnea, Starting on Jenifer 12/20/23 at 0112, Until 12/23/23 at 1721 albuterol-ipratropium (Duoneb) inhalation solution 3 mL 3 mL, Nebulizer, ONCE, On Sun12/19/23 at 1300, For 1 dose, 3 mL = 0.5 mg ipratropium/ 2.5 mg albuterol Given 12/19/2023 12:29 PM EST 3 mL albuterol-ipratropium (Duoneb) inhalation solution 3 mL 3 mL, Nebulizer, ONCE, On Sun12/19/23 at 1315, For 1 dose, 3 mL = 0.5 mg ipratropium/ 2.5 mg albuterol Given 12/19/2023 1:05 PM EST 3 mL Apixaban (Eliquis) tab 5 mg 5 mg, Oral, BID (.AM/PM), First dose on Sun12/19/23 at 2100, Until Discontinued Given 12/23/2023 8:50 AM EST 5 mg Given 12/22/2023 9:02 PM EST 5 mg Given 12/22/2023 8:10 AM EST 5 mg Azithromycin (Zithromax) tab 500 mg 500 mg, Oral, Daily(AM), First dose (after last modification) on Sun12/19/23 at 1730, Last dose on Sun12/23/23 at 0900, For 5 days, May be ordered as a single agent IF no recent antibiotic therapy. If Ceftriaxone ordered should add Azithromycin or Doxycycline. Given 12/23/2023 8:54 AM EST 500 mg Given 12/22/2023 8:09 AM EST 500 mg Given 12/21/2023 9:04 AM EST 500 mg buPROPion extended release (SR) (Wellbutrin SR) tab 150 mg 150 mg, Oral, BID (.AM/PM), First dose on Sun12/19/23 at 2100, Until Discontinued, [Therapeutic Interchange from Wellbutrin XL] Given 12/23/2023 8:51 AM EST 150 mg Given 12/22/2023 9:02 PM EST 150 mg Given 12/22/2023 8:10 AM EST 150 mg cefTRIAXone in dextrose (Rocephin) IVPB 2 g IV Piggyback, 2 g, Q24H, 5 doses, First dose on Sun12/19/23 at 1745, Last dose on Sun12/23/23 at 1745, Administer over 30 Minutes New Bag 12/19/2023 6:32 PM EST 2 g 100 mL/hr Cetirizine (ZyrTEC) tab 10 mg 10 mg, Oral, QHS, First dose on Sun12/19/23 at 2200, Until Discontinued Given 12/22/2023 9:02 PM EST 10 mg Given 12/21/2023 8:24 PM EST 10 mg Given 12/20/2023 9:52 PM EST 10 mg cholecalciferol (VIT D3) (Vitamin D3) tab 2,000 Units 2,000 Units, Oral, Daily(AM), First dose on Sun12/20/23 at 0900, Until Discontinued, NOTE 1000 units = 25 mcg Given 12/23/2023 8:52 AM EST 2, 000 Units Given 12/22/2023 8:10 AM EST 2,000 Units Given 12/21/2023 8:52 AM EST 2,000 Units dextrose 50 % inj 25 mL 25 mL, IV Push, PRN Hypoglycemia, Other, For blood glucose 54 - 69 mg/dL or 70 - 100 mg/dL with symptoms AND patient is unresponsive, NPO, OR unable to swallow, Starting on Sun12/19/23 at 1628, Until Sun12/23/23 at 1721, Administer IV. Recheck blood glucose after 15 minutes. Notify provider. dextrose 50 % inj 50 mL 50 mL, IV Push, PRN Hypoglycemia, Other, For blood glucose below 54 mg/dL AND patient unresponsive, NPO, OR unable to swallow, Starting on Sun12/19/23 at 1628, Until Sun12/23/23 at 1721, Administer IV. Recheck blood glucose in 15 minutes. Notify provider. Empagliflozin (Jardiance) tab 10 mg 10 mg, Oral, Daily(AM), First dose on Sun12/20/23 at 0900, Until Discontinued Given 12/23/2023 8:52 AM EST 10 mg Given 12/22/2023 8:10 AM EST 10 mg Given 12/21/2023 8:53 AM EST 10 mg escitalopram (Lexapro) tab 20 mg 20 mg, Oral, Daily(AM), First dose on Sun12/20/23 at 0900, Until Discontinued Given 12/23/2023 8:51 AM EST 20 mg Given 12/22/2023 8:10 AM EST 20 mg Given 12/21/2023 8:52 AM EST 20 mg fluticasone (Flonase) nasal inhaler 2 [place] 2 [place], Each Nostril, Daily(AM), First dose on Sun12/20/23 at 0900, Until Discontinued, 50 mcg / Actuation Given 12/22/2023 8:10 AM EST 2 Sprays Given 12/21/2023 8:54 AM EST 2 Sprays Given 12/20/2023 9:09 AM EST 2 Sprays Zoaycrdzusw-Uhvpdnkuiylz-Zrpdaafcaz (Trelegy Ellipta) 100-62.5-25 MCG/ACT inhaler 1 Puff 1 Puff, Inhalation, Daily(AM), First dose on Sun12/20/23 at 0900, Until Discontinued Given 12/23/2023 7:20 AM EST 1 Puf f Given 12/22/2023 8:01 AM EST 1 Puff Given 12/21/2023 7:45 AM EST 1 Puff Furosemide (Lasix) tab 80 mg 80 mg, Oral, BID (0900, 1600), First dose on Sun12/19/23 at 1830, Until Discontinued Given 12/22/2023 4:28 PM EST 80 m g Given 12/22/2023 8:10 AM EST 80 mg Given 12/21/2023 4:49 PM EST 80 mg Gabapentin (Neurontin) cap 600 mg 600 mg, Oral, BID (.AM/PM), First dose (after last modification) on Sun12/19/23 at 1930, Until Discontinued Given 12/23/2023 8:52 AM EST 600 mg Given 12/22/2023 9:02 PM EST 600 mg Given 12/22/2023 8:09 AM EST 600 mg glucagon (Glucagen) inj 1 mg 1 mg, Intramuscular, PRN Hypoglycemia, Other, If patient is unresponsive, or NPO and has no IV access, Starting on Sun12/19/23 at 1628, Until Sun12/23/23 at 1721, NPO and no IV access with either [...] patient alert WITH difficulty chewing/swallowing, Starting on Sun12/19/23 at 1628, Until Sun12/23/23 at 1721, Administer gel. Recheck blood glucose after 15 minutes. Notify provider. 37.5 gram tube = 15 grams glucose = 1 each Glucose (Glutose 15) 40 % gel 30 g of glucose 30 g of glucose, Oral, PRN Hypoglycemia (low sugar), Other, For blood glucose below 54 mg/dL AND patient alert WITH difficulty chewing/swallowing, Starting on Sun12/19/23 at 1628, Until Sun12/23/23 at 1721, Administer gel. Recheck blood glucose after 15 minutes. Notify provider. 37.5 gram tube = 15 grams glucose = 1 each glucose chew tab 16 g 16 g, Oral, PRN Hypoglycemia, Other, For blood glucose 54 - 69 mg/dL or 70 - 100 mg/dL with symptoms and patient alert without difficulty chewing/swallowing., Starting on Sun12/19/23 at 1628, Until Sun12/23/23 at 1721 insulin aspart (NovoLOG) inj 4 Units 4 Units, Subcutaneous, ONCE, 1 dose, On Sun12/19/23 at 2230 Given 12/19/2023 10:00 PM EST 4 Units Abdomen Left Lower insulin aspart (NovoLOG) inj 6 Units 6 Units, Subcutaneous, ONCE, 1 dose, On Sun12/19/23 at 1815 Given 12/19/2023 6:23 PM EST 6 Units Abdomen Left Upper insulin aspart (NovoLOG) inj Subcutaneous, W/MEALS AND HS, First dose on Sun12/19/23 at 1700, Until Discontinued, MEDIUM DOSE (Usual starting dose): Sliding Scale Correctional insulin may be given if the patient is NPO. Dose based on standard build from Insulin Calculator. Do not modify insulin doses in administration instructions! , Glucose less than 70 instructions: Obtain STAT lab blood glucose and call covering provider., Glucose 80-150 (units): 0, Glucose 151-200 (units): 2, Glucose 201-250 (units): 4, Glucose 251-300 (units): 6, Glucose greater than 300 (units): 8, Glucose greater than 300 instructions: Give suggested insulin dose and call covering provider. Given 12/20/2023 9:13 AM EST 6 Units Arm Right Upper Given 12/19/2023 10:00 PM EST 8 Units A bdomen Left Lower Given 12/19/2023 6:23 PM EST 8 Units Ar m Left Upper insulin aspart (NovoLOG) inj Subcutaneous, W/MEALS AND HS, First dose on Sun12/20/23 at 1245, Until Discontinued, HIGH DOSE - Steroid Patients [...] insulin dose and call covering provider. Given 12/23/2023 12:16 PM EST 8 Units Arm Left Upper Given 12/22/2023 5:23 PM EST 8 Units Ar m Right Upper Given 12/22/2023 12:09 PM EST 8 Units A rm Left Upper Ioversol (Optiray 350) 74 % inj 100 mL 100 mL, Intravenous, ONCE, On Sun12/19/23 at 1530, For 1 dose, Radiology Medication Routing (Non-IR) Given 12/19/2023 3:30 PM EST 100 mL magnesium sulfate 1 g in d5w 100mL LOCKED DOSE 1 g, IV Piggyback, Q1H, 2 doses, First dose on Sun12/19/23 at 1400, Last dose on Sun12/19/23 at 1500, Administer over 60 Minutes, Total dose is 2g New Bag 12/19/2023 2:06 PM EST 1 g 100 mL/hr New Bag 12/19/2023 12:55 PM EST 1 g 100 mL/hr melatonin tab 3 mg 3 mg, Oral, HS PRN Insomnia, Starting on Sun12/19/23 at 1613, Until 12/23/23 at 1721 Given 12/19/2023 9:25 PM EST 3 mg methylPREDNISolone sodium succ (SOLU-Medrol) inj 125 mg 125 mg, IV Push, ONCE, On Sun12/19/23 at 1300, For 1 dose Given 12/19/2023 12:49 PM EST 125 mg methylPREDNISolone sodium succ (SOLU-Medrol) inj 40 mg 40 mg, IV Push, Q12H, First dose on Sun12/19/23 at 2100, Last dose on Sun12/24/23 at 0900, For 5 days Given 12/20/2023 9:14 AM EST 40 mg Given 12/19/2023 9:25 PM EST methylPREDNISolone sodium succ (SOLU-Medrol) inj 40 mg 40 mg, IV Push, Daily(AM), First dose (after last modification) on Sun12/21/23 at 0900, Last dose on Sun12/28/23 at 0900, For 8 doses Given 12/22/2023 8:09 AM EST 40 m g Given 12/21/2023 8:53 AM EST 40 mg morphine sulfate inj 1 mg 1 mg, IV Push, Q6H PRN Pain, Severe, Starting on Jenifer 12/20/23 at 1328, Until 12/23/23 at 1721 Nicotine (Nicoderm CQ) 14 MG/24HR patch 1 Patch 1 Patch, Transdermal, Daily(AM), First dose on Sun12/20/23 at 0900, Until Discontinued, Place on clean, hairless area. Remove for patient showers. Change every 24 hours WASTE INFO: Return packaging and waste medication in zip lock bag to pharmacy - [facility] container. Patch Applied 12/23/2023 8:53 AM EST 1 Patch Deltoid Right Lower Patch Applied 12/22/2023 8:11 AM EST 1 Patch Arm Left Upper Patch Applied 12/21/2023 9:01 AM EST 1 Patch Abdomen Right Upper oxygen GAS Inhalation, OXYGEN, First dose on Sun12/19/23 at 1700, Until Discontinued, Device/Managed by: Low Flow Device, Goal SPO2 (%): 91-95, Starting Device: Nasal Cannula, Initial Flow Rate (LPM): 4, Lowest Support: Nasal Cannula: Flow 0-6 LPM. Titrate up/down by 1 LPM., Titration Interval: Q2 minutes and as needed., Notify Provider: For sudden DECREASE in resting SPO2 to less than 85% and when escalating delivery device., Wean patient off Oxygen when the oxygen saturation is greater than or equal to 93% -- NOTE her baseline is 4 liters NC at home at all times Oxygen On 12/23/2023 8:00 AM EST Oxygen On 12/23/2023 12:00 AM EST Oxygen On 12/22/2023 4:00 PM EST oxygen GAS Inhalation, OXYGEN, First dose on Sun12/19/23 at 1800, Until Discontinued, Device/Managed by: NIV or Ventilator Device, Goal SPO2 (%): 91-95, Notify Provider: For sudden DECREASE in resting SPO2 to less than 85% and when escalating delivery device., Initial FiO2 (%): 40, Titration Interval: Q2 minutes and as needed., Wean patient off Oxygen when the oxygen saturation is greater than or equal to 93% Oxygen On 12/23/2023 8:00 AM EST Oxygen On 12/23/2023 12:00 AM EST Oxygen On 12/22/2023 4:00 PM EST potassium chloride ER tab 20 mEq 20 mEq, Oral, Daily(AM), First dose on Sun12/20/23 at 0900, Until Discontinued, This med should NOT be Crushed or Chewed Given 12/22/2023 8:09 AM EST 20 mEq Given 12/21/2023 8:52 AM EST 20 mEq Given 12/20/2023 10:19 AM EST 20 mEq potassium chloride ER tab 40 mEq 40 mEq, Oral, Q1H, First dose on Sun12/19/23 at 1400, Last dose on Sun12/19/23 at 1500, For 2 doses, This med should NOT be Crushed or Chewed Given 12/19/2023 2:57 PM EST 40 mEq Given 12/19/2023 1:34 PM EST 40 mEq potassium chloride ER tab 40 mEq 40 mEq, Oral, ONCE, On Sun12/19/23 at 1845, For 1 dose, This med should NOT be Crushed or Chewed Given 12/19/2023 6:21 PM EST 40 mEq potassium chloride ER tab 40 mEq 40 mEq, Oral, Daily(AM), First dose (after last modification) on Sun12/23/23 at 0900, Until Discontinued, This med should NOT be Crushed or Chewed Given 12/23/2023 8:54 AM EST 40 mEq predniSONE (Deltasone) tab 40 mg 40 mg, Oral, Daily(AM), First dose on Sun12/23/23 at 0900, Last dose on Sun12/24/23 at 0900, For 2 doses Given 12/23/2023 8:51 AM EST 40 mg Roflumilast (Daliresp) tab 500 mcg 500 mcg, Oral, Daily(AM), First dose on Sun12/20/23 at 0900, Until Discontinued Given 12/23/2023 8:50 AM EST 500 mcg Given 12/22/2023 8:10 AM EST 500 mcg Given 12/21/2023 8:53 AM EST 500 mcg rOPINIRole (Requip) tab 2 mg 2 mg, Oral, BID (.AM/PM), First dose on Sun12/19/23 at 2100, Until Discontinued Given 12/23/2023 8:51 AM EST 2 mg Given 12/22/2023 9:02 PM EST 2 mg Given 12/22/2023 8:09 AM EST 2 mg rosuvastatin (Crestor) tab 20 mg 20 mg, Oral, Daily(AM), First dose on Sun12/20/23 at 0900, Until Discontinued Given 12/23/2023 8:50 AM EST 20 mg Given 12/22/2023 8:09 AM EST 20 mg Given 12/21/2023 8:53 AM EST 20 mg sodium chloride 0.9 % flush peripheral reji 3 mL 3 mL, IV Push, QSHIFT, First dose on Sun12/19/23 at 1700, Until Discontinued, Do not flush if lock, PICC, or central line not in place; IV infusing or unable to flush. Given 12/23/2023 8:00 AM EST 3 mL Given 12/23/2023 12:00 AM EST 3 mL Given 12/22/2023 4:00 PM EST 3 mL sodium chloride 0.9 % flush/inj 3 mL 3 mL, IV Push, PRN Other, Line Patency, Starting on Sun12/19/23 at 1618, Until 12/23/23 at 1721, Do not flush if lock, PICC, or central line not in place, IV infusing or unable to flush traZODone (Desyrel) tab 100 mg 100 mg, Oral, HS, First dose on Sun12/19/23 at 2200, Until Discontinued Given 12/22/2023 9:02 PM EST 100 mg Given 12/21/2023 8:24 PM EST 100 mg Given 12/20/2023 9:51 PM EST 100 mg documented in this encounter Active and Recently Administered Medications Times are shown in EST. Scheduled Medication Order 12/21/2023 12/22/2023 12/23/2023 Acetaminophen (Tylenol) tab 975 mg 975 mg, Oral, TID 06;12;18, First dose (after last modification) on Sun12/19/23 at 1915, Until Discontinued, Maximum of 4 grams (4000 mg) per day. 0609 (Given - Provider: Cyndee Cade RN)1229 (Given - Provider: Yaz Newell RN)1648 (Given - Provider: Yaz Newell RN) 0534 (Given - Provider: Nolvia Mendoza RN)1209 (Given - Provider: Jada Morrissey RN)1723 (Given - Provider: Jada Morrissey RN) 0553 (Given - Provider: Nolvia Mendoza RN)1216 (Given - Provider: Ruiz Orellana LPN) Acetylcysteine (NAC) cap 600 mg 600 mg, Oral, BID (.AM/PM), First dose on Sun12/19/23 at 2100, Until Discontinued, GIVE WITH DIET COLA 0853 (Given - Provider: Yaz Newell RN)2020 (Given - Provider: Nolvia Mendoza RN) 0809 (Given - Provider: Jada Morrissey RN)2100 (Not Given - Provider: Nolvia Mendoza RN - Reason: Other-Notify Provider - Comment: pharmacist notified this nurse of none in stock and to skip dose) 0900 (Not Given - Provider: Ruiz Orellana LPN - Reason: Other-Notify Provider) Albuterol Sulfate (Proventil) (2.5 MG/3ML) 0.083% inhalation solution 2.5 mg 2.5 mg, Nebulizer, RESPQID, First dose on Sun12/19/23 at 1900, Until Discontinued 0745 (Given - Provider: Jelena Gonzalez, BEDSPREAD FOLDER)1041 (Given - Provider: Jelena Gonzalez, BEDSPREAD FOLDER)1523 (Given - Provider: Felicia Christianson, DARYA)1900 (Not Given - Provider: Felicia Christianson RRT - Reason: Refused-Notify Provider) 0801 (Given - Provider: Felicia Christianson RRT)1036 (Given - Provider: Felicia Christianson RRT)1531 (Given - Provider: Ramona Felton, DARYA)1852 (Given - Provider: Ramona Felton RRT) 0721 (Given - Provider: Efraín Paz RRT)1023 (Given - Provider: Efraín Paz RRT) Apixaban (Eliquis) tab 5 mg 5 mg, Oral, BID (.AM/PM), First dose on Sun12/19/23 at 2100, Until Discontinued 0853 (Given - Provider: Yaz Newell RN)2020 (Given - Provider: Nolvia Mendoza RN) 08 (Given - Provider: Jada Morrissey RN)2101 (Given - Provider: Nolvia Mendoza RN) 0850 (Given - Provider: Ruiz Orellana LPN) Azithromycin (Zithromax) tab 500 mg (COMPLETED) 500 mg, Oral, Daily(AM), First dose (after last modification) on Sun12/19/23 at 1730, Last dose on Sun12/23/23 at 0900, For 5 days, May be ordered as a single agent IF no recent antibiotic therapy. If Ceftriaxone ordered should add Azithromycin or Doxycycline. 903 (Given - Provider: Yaz Newell RN) 808 (Given - Provider: Jada Morrissey RN) 0854 (Given - Provider: Ruiz Orellana LPN) buPROPion extended release (SR) (Wellbutrin SR) tab 150 mg 150 mg, Oral, BID (.AM/PM), First dose on Sun12/19/23 at 2100, Until Discontinued, [Therapeutic Interchange from Wellbutrin XL] 0853 (Given - Provider: Yaz Newell RN)2021 (Given - Provider: Nolvia Mendoza RN) 08 (Given - Provider: Jada Morrissey RN)2101 (Given - Provider: Nolvia Mendoza RN) 0851 (Given - Provider: Ruiz Orellana LPN) Cetirizine (ZyrTEC) tab 10 mg 10 mg, Oral, QHS, First dose on Sun12/19/23 at 2200, Until Discontinued 2023 (Given - Provider: Nolvia Mendoza RN) 2101 (Given - Provider: Nolvia Mendoza RN) cholecalciferol (VIT D3) (Vitamin D3) tab 2,000 Units 2,000 Units, Oral, Daily(AM), First dose on Sun12/20/23 at 0900, Until Discontinued, NOTE 1000 units = 25 mcg 0852 (Given - Provider: Yaz Newell RN) 0810 (Given - Provider: Jada Morrissey RN) 0852 (Given - Provider: Ruiz Orellana LPN) Empagliflozin (Jardiance) tab 10 mg 10 mg, Oral, Daily(AM), First dose on Sun12/20/23 at 0900, Until Discontinued 0853 (Given - Provider: Yaz Newell RN) 0810 (Given - Provider: Jada Morrissey RN) 0852 (Given - Provider: Ruiz Orellana LPN) escitalopram (Lexapro) tab 20 mg 20 mg, Oral, Daily(AM), First dose on Sun12/20/23 at 0900, Until Discontinued 0852 (Given - Provider: Yaz Newell RN) 0810 (Given - Provider: Jada Morrissey RN) 0851 (Given - Provider: Ruiz Orellana LPN) fluticasone (Flonase) nasal inhaler 2 [place] 2 [place], Each Nostril, Daily(AM), First dose on Sun12/20/23 at 0900, Until Discontinued, 50 mcg / Actuation 0854 (Given - Provider: Yaz Newell RN) 0810 (Given - Provider: Jada Morrissey RN) 0900 (Not Given - Provider: Ruiz Orellana LPN - Reason: Refused-Notify Provider) Fluticasone-Umeclidinium -Vilanterol (Trelegy Ellipta) 100-62.5-25 MCG/ACT inhaler 1 Puff 1 Puff, Inhalation, Daily(AM), First dose on Sun12/20/23 at 0900, Until Discontinued 0745 (Given - Provider: Jelena Gonzalez, BEDSPREAD FOLDER) 0801 (Given - Provider: Felicia Christianson, WALLPAPER HANGER) 0720 (Given - Provider: Efraín Paz, DARYA) Furosemide (Lasix) tab 80 mg 80 mg, Oral, BID (0900, 1600), First dose on Sun12/19/23 at 1830, Until Discontinued 09 (Not Given - Provider: Yaz Newell RN - Reason: Parameter(s) Not Met)1649 (Given - Provider: Yaz Newell RN) 0810 (Given - Provider: Jada Morrissey RN)1628 (Given - Provider: Jada Morrissey RN) 0900 (Not Given - Provider: Ruiz Orellana LPN - Reason: Parameter(s) Not Met) Gabapentin (Neurontin) cap 600 mg 600 mg, Oral, BID (.AM/PM), First dose (after last modification) on Sun12/19/23 at 1930, Until Discontinued 08 (Given - Provider: Yaz Newell RN)2020 (Given - Provider: Nolvia Mendoza RN) 08 (Given - Provider: Jada Morrissey RN)2101 (Given - Provider: Nolvia Mendoza RN) 0852 (Given - Provider: Ruiz Orellana LPN) insulin aspart (NovoLOG) inj Subcutaneous, W/MEALS AND HS, First dose on Sun12/20/23 at 1245, Until Discontinued, HIGH DOSE - Steroid Patients [...] suggested insulin dose and call covering provider. 0800 (Not Given - Provider: Yaz Newell RN - Reason: Parameter(s) Not Met)1229 (Given - Provider: Yaz Newell RN)1649 (Given - Provider: Yaz Newell RN)2147 (Given - Provider: Nolvia Mendoza RN) 0800 (No Insulin - Provider: Jada Morrissey RN - Reason: Parameter(s) Not Met)1209 (Given - Provider: Jada Morrissey RN)1723 (Given - Provider: Jada Morrissey RN)2200 (Not Given - Provider: Nolvia Mendoza RN - Reason: Parameter(s) Not Met - Comment: bsbs 129) 0800 (No Insulin - Provider: Ruiz Orellana LPN - Reason: Parameter(s) Not Met)1216 (Given - Provider: Ruiz Orellana LPN) methylPREDNISolone sodium succ (SOLU-Medrol) inj 40 mg (CANCELED) 40 mg, IV Push, Daily(AM), First dose (after last modification) on Sun12/21/23 at 0900, Last dose on Sun12/28/23 at 0900, For 8 doses 0853 (Given - Provider: Yaz Newell RN) 0809 (Given - Provider: Jada Morrissey RN) Nicotine (Nicoderm CQ) 14 MG/24HR patch 1 Patch 1 Patch, Transdermal, Daily(AM), First dose on Sun12/20/23 at 0900, Until Discontinued, Place on clean, hairless area. Remove for patient showers. Change every 24 hours WASTE INFO: Return packaging and waste medication in zip lock bag to pharmacy - [facility] container. 0859 (Patch Removed - Provider: Yaz Newell RN)0901 (Patch Applied - Provider: Yaz Newell RN) 0810 (Patch Removed - Provider: Jada Morrissey RN)0811 (Patch Applied - Provider: Jada Morrissey RN) 0811 (Patch Removed - Provider: Ruiz Orellana LPN)0853 (Patch Applied - Provider: Ruiz Orellana LPN)1321 (Due: Patch Removed - Provider: Discharge, Physician - Comment: Time automatically adjusted from order being discontinued) oxygen GAS Inhalation, OXYGEN, First dose on Sun12/19/23 at 1700, Until Discontinued, Device/Managed by: Low Flow Device, Goal SPO2 (%): 91-95, Starting Device: Nasal Cannula, Initial Flow Rate (LPM): 4, Lowest Support: Nasal Cannula: Flow 0-6 LPM. Titrate up/down by 1 LPM., Titration Interval: Q2 minutes and as needed., Notify Provider: For sudden DECREASE in resting SPO2 to less than 85% and when escalating delivery device., Wean patient off Oxygen when the oxygen saturation is greater than or equal to 93% -- NOTE her baseline is 4 liters NC at home at all times 0000 (Oxygen On - Provider: Cyndee Cade RN)0800 (Oxygen On - Provider: Yaz Newell RN)1600 (Oxygen On - Provider: Yaz Newell RN) 0000 (Oxygen On - Provider: Nolvia Mendoza RN)0800 (Oxygen On - Provider: Jada Morrissey RN)1600 (Oxygen On - Provider: Jada Morrissey RN) 0000 (Oxygen On - Provider: Nolvia Mendoza RN)0800 (Oxygen On - Provider: Ruiz Orellana LPN) oxygen GAS(Linked Group 1) Inhalation, OXYGEN, First dose on Sun12/19/23 at 1800, Until Discontinued, Device/Managed by: NIV or Ventilator Device, Goal SPO2 (%): 91-95, Notify Provider: For sudden DECREASE in resting SPO2 to less than 85% and when escalating delivery device., Initial FiO2 (%): 40, Titration Interval: Q2 minutes and as needed., Wean patient off Oxygen when the oxygen saturation is greater than or equal to 93% 0000 (Oxygen On - Provider: Cyndee Cade RN)0800 (Oxygen On - Provider: Yaz Newell RN)1600 (Oxygen On - Provider: Yaz Newell RN) 0000 (Oxygen On - Provider: Nolvia Mendoza RN)0800 (Oxygen On - Provider: Jada Morrissey RN)1600 (Oxygen On - Provider: Jada Morrissey RN) 0000 (Oxygen On - Provider: Nolvia Mendoza RN)0800 (Oxygen On - Provider: Ruiz Orellana LPN) potassium chloride ER tab 20 mEq (CANCELED) 20 mEq, Oral, Daily(AM), First dose on Sun12/20/23 at 0900, Until Discontinued, This med should NOT be Crushed or Chewed 0852 (Given - Provider: Yaz Newell RN) 0809 (Given - Provider: Jada Morrissey RN) potassium chloride ER tab 40 mEq 40 mEq, Oral, Daily(AM), First dose (after last modification) on Sun12/23/23 at 0900, Until Discontinued, This med should NOT be Crushed or Chewed 0854 (Given - Provider: Ruiz Orellana LPN) predniSONE (Deltasone) tab 40 mg 40 mg, Oral, Daily(AM), First dose on Sun12/23/23 at 0900, Last dose on Sun12/24/23 at 0900, For 2 doses 0851 (Given - Provider: Ruiz Orellana LPN) Roflumilast (Daliresp) tab 500 mcg 500 mcg, Oral, Daily(AM), First dose on Sun12/20/23 at 0900, Until Discontinued 0853 (Given - Provider: Yaz Newell RN) 0810 (Given - Provider: Jada Morrissey RN) 0850 (Given - Provider: Ruiz Orellana LPN) rOPINIRole (Requip) tab 2 mg 2 mg, Oral, BID (.AM/PM), First dose on Sun12/19/23 at 2100, Until Discontinued 851 (Given - Provider: Yaz Newell RN)2021 (Given - Provider: Nolvia Mendoza RN) 08 (Given - Provider: Jada Morrissey RN)2101 (Given - Provider: Nolvia Mendoza RN) 0851 (Given - Provider: Ruiz Orellana LPN) rosuvastatin (Crestor) tab 20 mg 20 mg, Oral, Daily(AM), First dose on Sun12/20/23 at 0900, Until Discontinued 0853 (Given - Provider: Yaz Newell RN) 0809 (Given - Provider: Jada Morrissey RN) 0850 (Given - Provider: Ruiz Orellana LPN) sodium chloride 0.9 % flush peripheral reji 3 mL 3 mL, IV Push, QSHIFT, First dose on Sun12/19/23 at 1700, Until Discontinued, Do not flush if lock, PICC, or central line not in place; IV infusing or unable to flush. 0000 (Given - Provider: Cyndee Cade RN)0800 (Given - Provider: Yaz Newell RN)1600 (Given - Provider: Yaz Newell RN) 0000 (Given - Provider: Nolvia Mendoza RN)0811 (Given - Provider: Jada Morrissey RN)1600 (Given - Provider: Jada Morrissey RN) 0000 (Given - Provider: Nolvia Mendoza RN)0800 (Given - Provider: Ruiz Orellana LPN) traZODone (Desyrel) tab 100 mg 100 mg, Oral, HS, First dose on Sun12/19/23 at 2200, Until Discontinued 2023 (Given - Provider: Nolvia Mendoza RN) 2101 (Given - Provider: Nolvia Mendoza RN) PRN Medication Order 12/21/2023 12/22/2023 12/23/2023 Albuterol Sulfate (Proventil) (2.5 MG/3ML) 0.083% inhalation solution 2.5 mg 2.5 mg, Nebulizer, Q4H PRN Dyspnea, Starting on Jenifer 12/20/23 at 0112, Until 12/23/23 at 1721 dextrose 50 % inj 25 mL 25 mL, IV Push, PRN Hypoglycemia, Other, For blood glucose 54 - 69 mg/dL or 70 - 100 mg/dL with symptoms AND patient is unresponsive, NPO, OR unable to swallow, Starting on Sun12/19/23 at 1628, Until 12/23/23 at 1721, Administer IV. Recheck blood glucose after 15 minutes. Notify provider. dextrose 50 % inj 50 mL 50 mL, IV Push, PRN Hypoglycemia, Other, For blood glucose below 54 mg/dL AND patient unresponsive, NPO, OR unable to swallow, Starting on Sun12/19/23 at 1628, Until 12/23/23 at 1721, Administer IV. Recheck blood glucose in 15 minutes. Notify provider. glucagon (Glucagen) inj 1 mg 1 mg, Intramuscular, PRN Hypoglycemia, Other, If patient is unresponsive, or NPO and has no IV access, Starting on Sun12/19/23 at 1628, Until 12/23/23 at 1721, NPO and no IV access with either [...] patient alert WITH difficulty chewing/swallowing, Starting on Sun12/19/23 at 1628, Until 12/23/23 at 1721, Administer gel. Recheck blood glucose after 15 minutes. Notify provider. 37.5 gram tube = 15 grams glucose = 1 each Glucose (Glutose 15) 40 % gel 30 g of glucose 30 g of glucose, Oral, PRN Hypoglycemia (low sugar), Other, For blood glucose below 54 mg/dL AND patient alert WITH difficulty chewing/swallowing, Starting on Sun12/19/23 at 1628, Until 12/23/23 at 1721, Administer gel. Recheck blood glucose after 15 minutes. Notify provider. 37.5 gram tube = 15 grams glucose = 1 each glucose chew tab 16 g 16 g, Oral, PRN Hypoglycemia, Other, For blood glucose 54 - 69 mg/dL or 70 - 100 mg/dL with symptoms and patient alert without difficulty chewing/swallowing., Starting on Sun12/19/23 at 1628, Until 12/23/23 at 1721 melatonin tab 3 mg 3 mg, Oral, HS PRN Insomnia, Starting on Sun12/19/23 at 1613, Until 12/23/23 at 1721 morphine sulfate inj 1 mg 1 mg, IV Push, Q6H PRN Pain, Severe, Starting on Jenifer 12/20/23 at 1328, Until 12/23/23 at 1721 sodium chloride 0.9 % flush/inj 3 mL 3 mL, IV Push, PRN Other, Line Patency, Starting on Sun12/19/23 at 1618, Until [place] 12/23/23 at 1721, Do not flush if lock, PICC, or central line not in place, IV infusing or unable to flush Linked Groups Order Group 1: Ventilation Method: Acute Non-Invasive --- Indication (Adult Only)? Acute on Chronic Hypercarbic Respiratory Failure --- PEEP/EPAP/CPAP: 5 --- Changes Per Adult Protocol: Yes (CANCELED) CONTINUOUS, Starting on Sun12/19/23 at 1725, Until Specified Routine And oxygen GASJump to med Inhalation, OXYGEN, First dose on Sun12/19/23 at 1800, Until Discontinued, Device/Managed by: NIV or Ventilator Device, Goal SPO2 (%): 91-95, Notify Provider: For sudden DECREASE in resting SPO2 to less than 85% and when escalating delivery device., Initial FiO2 (%): 40, Titration Interval: Q2 minutes and as needed., Wean patient off Oxygen when the oxygen saturation is greater than or equal to 93% documented in this encounter Additional Health Concerns Infection Onset [...] the patient have Health Care Power of Heat And 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 No Bag Valve Device? Yes Intubation? No [...] Agents on File Name Relationship Healthcare Agent Randolph Healthhi p Communication Martinez GRIGSBY Adult Child First Alternate Health Care Agent Peterlucrecia Valetz Adult Child First Alternate Health Care Agent Jazmine Corona Adult Child First Alternate Health Care Agent Care Teams Document Control Supervisor Relationship Specialty Start Date End Date Marcos Gamble PA-C [id number] [facility] [place] [phone] PCP - General Physician Benefits Counselor 11/22/23 documented as of this encounter
--- OUTSIDE RECORDS SUMMARY | 2024-04-14 13:02 | External Medical Summary ---
Author Name Unknown Address Unknown Organization : Laboratory Report Ordering Provider Test Date Status MONET RAINES 12/20/2023 11:43:01 Final Observation Date Value Abnormality Reference (Units ) Status Glucose Point of Care 12/20/2023 11:43:01 327 Above high normal 70-120 (mg/dL) Final Performing Location
--- OUTSIDE RECORDS SUMMARY | 2024-04-14 13:02 | External Medical Summary ---
Author Name Unknown Address Unknown Organization K1F:[facility] - [address] [place] [address] Laboratory Report Ordering Provider Test Date Status MONET RAINES 12/22/2023 07:46:00 Final Observation Date Value Abnormality Reference (Units ) Status BUN 12/22/2023 07:46:00 28 Above high normal 6-20 (mg/dL) Final Creatinine 12/22/2023 07:46:00 1.3 Above high normal 0.5-1.0 (mg/dL) Final Glomerular filtration rate/1.73 sq M.predicted [Volume Rate/Area] in Serum, Plasma or Blood by Creatinine-based formula (CKD-EPI) 12/22/2023 07:46:00 46 Below low normal >=60 (mL/min) Final eGFR is calculated based on the CKD-EPI 2020 equation SODIUM 12/22/2023 07:46:00 144 135-146 (m mol/L) Final Potassium 12/22/2023 07:46:00 3.8 3.5-5.1 (m mol/L) Final Cl 12/22/2023 07:46:00 95 Below low normal 98- 107 (mmol/L) Final CO2 12/22/2023 07:46:00 40 Above high normal 22 -32 (mmol/L) Final Anion gap 12/22/2023 07:46:00 9 7-15 (mmol /L) Final Glucose 12/22/2023 07:46:00 110 70-120 (mg /dL) Final Calcium 12/22/2023 07:46:00 8.5 8.4-10.2 ( mg/dL) Final Performing Location [facility] [address] [facility] [place] [address]
--- OUTSIDE RECORDS SUMMARY | 2024-04-14 13:02 | External Medical Summary ---
Author Name Unknown Address Unknown Organization K1F:LABORATORY [facility] - [address] [place] [address] Laboratory Report Ordering Provider Test Date Status ERIKA GRISSOM 12/20/2023 05:03:00 Final Observation Date Value Abnormality Reference (Units ) Status BUN 12/20/2023 05:03:00 28 Above high normal 6-20 (mg/dL) Final Creatinine 12/20/2023 05:03:00 1.2 Above high normal 0.5-1.0 (mg/dL) Final Glomerular filtration rate/1.73 sq M.predicted [Volume Rate/Area] in Serum, Plasma or Blood by Creatinine-based formula (CKD-EPI) 12/20/2023 05:03:00 52 Below low normal >=60 (mL/min) Final eGFR is calculated based on the CKD-EPI 2020 equation SODIUM 12/20/2023 05:03:00 140 135-146 (m mol/L) Final Potassium 12/20/2023 05:03:00 3.7 3.5-5.1 (m mol/L) Final Cl 12/20/2023 05:03:00 91 Below low normal 98- 107 (mmol/L) Final CO2 12/20/2023 05:03:00 39 Above high normal 22 -32 (mmol/L) Final Anion gap 12/20/2023 05:03:00 10 7-15 (mmol /L) Final Glucose 12/20/2023 05:03:00 272 Above high normal 70 -120 (mg/dL) Final Calcium 12/20/2023 05:03:00 8.8 8.4-10.2 ( mg/dL) Final Performing Location [facility] - [address] [place] [address]
--- OUTSIDE RECORDS SUMMARY | 2024-04-14 13:02 | External Medical Summary ---
Author Name Unknown Address Unknown Organization K1F:LABORATORY [facility] - [address] [place] [address] Laboratory Report Ordering Provider Test Date Status MONET RAINES 12/23/2023 03:27:00 Final Observation Date Value Abnormality Reference (Units ) Status WBC, Total 12/23/2023 03:27:00 8.99 4.00-10.80 (K/uL) Final RBC 12/23/2023 03:27:00 3.23 3.85-5.15 (M/uL) Final Hemoglobin 12/23/2023 03:27:00 9.6 Below low normal 12.0-15.3 (g/dL) Final HCT 12/23/2023 03:27:00 31.4 Below low normal 36.0-45.2 (%) Final MCV 12/23/2023 03:27:00 97.2 81.5-97.5 (fL) Final MCH 12/23/2023 03:27:00 29.7 27.0-34.0 (pg) Final MCHC 12/23/2023 03:27:00 30.6 32.0-36.0 (g/dL) Final RDW 12/23/2023 03:27:00 15.9 11.5-15.5 (%) Final Platelets 12/23/2023 03:27:00 425 Above high normal 140-400 (K/uL) Final MPV 12/23/2023 03:27:00 9.3 6.6-11.1 (fL) Final Nucleated erythrocytes/100 leukocytes [Ratio] in Blood by Automated count 12/23/2023 03:27:00 0 <=0 (/100 WBCs) Final Performing Location LABORATORY [facility] - [address] [place] [address]
--- OUTSIDE RECORDS SUMMARY | 2024-04-14 13:02 | External Medical Summary ---
Author Name Unknown Address Unknown Organization K1F:LABORATORY [facility] - [address] [place] [address] Laboratory Report Ordering Provider Test Date Status MONET RAINES 12/21/2023 07:55:00 Final Observation Date Value Abnormality Reference (Units ) Status WBC, Total 12/21/2023 07:55:00 10.48 4.00-10.80 (K/uL) Final RBC 12/21/2023 07:55:00 2.97 3.85-5.15 (M/uL) Final Hemoglobin 12/21/2023 07:55:00 9.0 Below low normal 12.0-15.3 (g/dL) Final HCT 12/21/2023 07:55:00 28.8 Below low normal 36.0-45.2 (%) Final MCV 12/21/2023 07:55:00 97.0 81.5-97.5 (fL) Final MCH 12/21/2023 07:55:00 30.3 27.0-34.0 (pg) Final MCHC 12/21/2023 07:55:00 31.3 32.0-36.0 (g/dL) Final RDW 12/21/2023 07:55:00 16.8 11.5-15.5 (%) Final Platelets 12/21/2023 07:55:00 405 Above high normal 140-400 (K/uL) Final MPV 12/21/2023 07:55:00 9.3 6.6-11.1 (fL) Final Nucleated erythrocytes/100 leukocytes [Ratio] in Blood by Automated count 12/21/2023 07:55:00 0 <=0 (/100 WBCs) Final Performing Location LABORATORY [facility] - [address] [place] [address]
--- OUTSIDE RECORDS SUMMARY | 2024-04-14 13:02 | External Medical Summary ---
Author Name Unknown Address Unknown Organization K1F:[facility] - [address] [place] [address] Laboratory Report Ordering Provider Test Date Status MONET RAINES 12/23/2023 03:27:00 Final Observation Date Value Abnormality Reference (Units ) Status BUN 12/23/2023 03:27:00 25 Above high normal 6-20 (mg/dL) Final Creatinine 12/23/2023 03:27:00 1.3 Above high normal 0.5-1.0 (mg/dL) Final Glomerular filtration rate/1.73 sq M.predicted [Volume Rate/Area] in Serum, Plasma or Blood by Creatinine-based formula (CKD-EPI) 12/23/2023 03:27:00 48 Below low normal >=60 (mL/min) Final eGFR is calculated based on the CKD-EPI 2020 equation SODIUM 12/23/2023 03:27:00 145 135-146 (m mol/L) Final Potassium 12/23/2023 03:27:00 3.4 Below low normal 3.5 -5.1 (mmol/L) Final Cl 12/23/2023 03:27:00 98 98-107 (mm ol/L) Final CO2 12/23/2023 03:27:00 37 Above high normal 22 -32 (mmol/L) Final Anion gap 12/23/2023 03:27:00 10 7-15 (mmol /L) Final Glucose 12/23/2023 03:27:00 101 70-120 (mg /dL) Final Calcium 12/23/2023 03:27:00 8.4 8.4-10.2 ( mg/dL) Final Performing Location [facility] - [address] [place] [address]
--- OUTSIDE RECORDS SUMMARY | 2024-04-14 13:02 | External Medical Summary ---
Author Name Unknown Address Unknown Organization : Laboratory Report Ordering Provider Test Date Status MONET RAINES 12/23/2023 11:37:03 Final Observation Date Value Abnormality Reference (Units ) Status Glucose Point of Care 12/23/2023 11:37:03 208 Above high normal 70-120 (mg/dL) Final Performing Location
--- OUTSIDE RECORDS SUMMARY | 2024-04-14 13:02 | External Medical Summary ---
Author Name Unknown Address Unknown Organization : Laboratory Report Ordering Provider Test Date Status MONET RAINES 12/22/2023 16:31:43 Final Observation Date Value Abnormality Reference (Units ) Status Glucose Point of Care 12/22/2023 16:31:43 204 Above high normal 70-120 (mg/dL) Final Performing Location
--- OUTSIDE RECORDS SUMMARY | 2024-04-14 13:02 | External Medical Summary ---
Author Name Unknown Address Unknown Organization : Laboratory Report Ordering Provider Test Date Status MONET RAINES 12/23/2023 07:42:58 Final Observation Date Value Abnormality Reference (Units ) Status Glucose Point of Care 12/23/2023 07:42:58 107 70-120 (mg/dL) Final Performing Location
--- OUTSIDE RECORDS SUMMARY | 2024-04-14 13:02 | External Medical Summary ---
Author Name Unknown Address Unknown Organization : Laboratory Report Ordering Provider Test Date Status MONET RAINES 12/21/2023 16:35:45 Final Observation Date Value Abnormality Reference (Units ) Status Glucose Point of Care 12/21/2023 16:35:45 208 Above high normal 70-120 (mg/dL) Final Performing Location
--- OUTSIDE RECORDS SUMMARY | 2024-04-14 13:02 | External Medical Summary ---
Author Name Unknown Address Unknown Organization K1F:LABORATORY [facility] - [address] [place] [address] Laboratory Report Ordering Provider Test Date Status ERIKA GRISSOM 12/20/2023 05:03:00 Final Observation Date Value Abnormality Reference (Units ) Status WBC, Total 12/20/2023 05:03:00 8.07 4.00-10.80 (K/uL) Final RBC 12/20/2023 05:03:00 3.21 3.85-5.15 (M/uL) Final Hemoglobin 12/20/2023 05:03:00 9.2 Below low normal 12.0-15.3 (g/dL) Final HCT 12/20/2023 05:03:00 30.7 Below low normal 36.0-45.2 (%) Final MCV 12/20/2023 05:03:00 95.6 81.5-97.5 (fL) Final MCH 12/20/2023 05:03:00 28.7 27.0-34.0 (pg) Final MCHC 12/20/2023 05:03:00 30.0 32.0-36.0 (g/dL) Final RDW 12/20/2023 05:03:00 15.8 11.5-15.5 (%) Final Platelets 12/20/2023 05:03:00 366 140-400 (K/uL) Final MPV 12/20/2023 05:03:00 9.4 6.6-11.1 (fL) Final Nucleated erythrocytes/100 leukocytes [Ratio] in Blood by Automated count 12/20/2023 05:03:00 0 <=0 (/100 WBCs) Final Performing Location LABORATORY [facility] - [address] [place] [address]
--- OUTSIDE RECORDS SUMMARY | 2024-04-14 13:02 | External Medical Summary ---
Author Name Unknown Address Unknown Organization : Laboratory Report Ordering Provider Test Date Status MONET RAINES 12/22/2023 12:02:24 Final Observation Date Value Abnormality Reference (Units ) Status Glucose Point of Care 12/22/2023 12:02:24 218 Above high normal 70-120 (mg/dL) Final Performing Location
--- OUTSIDE RECORDS SUMMARY | 2024-04-14 13:02 | External Medical Summary ---
Author Name Unknown Address Unknown Organization K1F:LABORATORY [facility] - [address] [place] [address] Laboratory Report Ordering Provider Test Date Status MONET RAINES 12/22/2023 07:46:00 Final Observation Date Value Abnormality Reference (Units ) Status WBC, Total 12/22/2023 07:46:00 8.27 4.00-10.80 (K/uL) Final RBC 12/22/2023 07:46:00 3.38 3.85-5.15 (M/uL) Final Hemoglobin 12/22/2023 07:46:00 10.1 Below low normal 12.0-15.3 (g/dL) Final HCT 12/22/2023 07:46:00 33.3 Below low normal 36.0-45.2 (%) Final MCV 12/22/2023 07:46:00 98.5 81.5-97.5 (fL) Final MCH 12/22/2023 07:46:00 29.9 27.0-34.0 (pg) Final MCHC 12/22/2023 07:46:00 30.3 32.0-36.0 (g/dL) Final RDW 12/22/2023 07:46:00 16.4 11.5-15.5 (%) Final Platelets 12/22/2023 07:46:00 413 Above high normal 140-400 (K/uL) Final MPV 12/22/2023 07:46:00 9.0 6.6-11.1 (fL) Final Nucleated erythrocytes/100 leukocytes [Ratio] in Blood by Automated count 12/22/2023 07:46:00 0 <=0 (/100 WBCs) Final Performing Location LABORATORY [facility] - [address] [place] [address]
--- OUTSIDE RECORDS SUMMARY | 2024-04-14 13:03 | External Medical Summary ---
Author Name Unknown Address Unknown Organization K1F:LABORATORY [facility] - [address] [place] [address] Laboratory Report Ordering Provider Test Date Status CHRIS BROUSSARD 12/19/2023 12:36:24 Final Exclude Heart Failure: <300 pg/mL
Diagnose Heart Failure:
Age <50 yr: >450 pg/mL
50-75 yr: >900 pg/mL
>75 yr: >1800 pg/mL
GFR is 30-59 mL/min: >1200 pg/mL or Age- adjusted values
GFR <30 mL/min: do not use, not reliable

Prognostic threshold: 1000 pg/mL Observation Date Value Abnormality Reference (Units ) Status BNP, Pro-hormone 12/19/2023 12:36:24 94 <30 0 (pg/mL) Final Performing Location LABORATORY [facility] - [address] [place] [address]
--- OUTSIDE RECORDS SUMMARY | 2024-04-14 13:03 | External Medical Summary | Summary of Care ---
Author Name Unknown Organization [facility] Address [address] [place] [address] Phone [phone] Care Team Providers Care Survey Cad Technician Name Role Phone Marcos Maurice PA-C Primary Care Provide r Encounter Details Date Type Department Care Team (Late st Contact Info) Description 12/10/2023 Telephone Pratibha Casey [address] [place] [phone] Andrea Mcclendon, [address] [place] [id number] Allergies Active Allergy Reactions Criticality Noted Date Comments Cortisone Muscle pain Medium 04/09/2017 At site of shot Bee Venom Anaphylaxis High 06/25/2021 Hydrocortisone High 12/25/2021 Other reaction(s): PAIN,UNABLE TO MOVE documented as of this encounter (statuses as of 12/10/2023) Medications Medication Sig Dispensed Refills Start Date [...] Tablet (Requip)Indications:P rimary insomnia,Restless legs syndrome Take by mouth 1 Tablet in the morning AND 1 Tablet before bedtime. 60 Tablet 5 09/22/2022 Active Rosuvastatin Calcium 20 MG Oral Tablet (Crestor)Indications: Cor pulmonale, chronic ([facility]),COPD, group D, by GOLD 2017 classification ([facility]),Hypertensive heart and kidney disease with chronic diastolic congestive heart failure and stage 3a chronic kidney disease ([facility]),Dyslipidemia,Es sential hypertension with goal blood pressure [...] 0.1 % Nasal Solution (Astelin) Administer 1 [place] into nostril in the morning and 1 [place] before bedtime. 30 mL 12 01/12/2023 Active Gabapentin 600 MG Oral Tablet (Neurontin)Indication s:Generalized osteoarthritis Take 1 Tablet by mouth in the morning and 1 Tablet before bedtime. 180 Tablet 3 03/26/2023 Active Furosemide 80 MG Oral Tablet (Lasix)Indications:Ge [...] 1 06/21/2023 Active Eliquis 5 MG Oral TabletIndications:Per roxanne history of DVT (deep vein thrombosis) take 1 tablet by mouth every morning and at bedtime 60 Tablet 3 07/07/2023 Active Albuterol Sulfate (2.5 MG/3ML) 0.083% Inhalation Nebulization Solution (Proventil)Indication s:COPD, group D, by GOLD 2017 classification ([facility]) Inhale 1 Vial via nebulizer every 4 hours as needed for Wheezing or Shortness of Breath. 180 mL 11 08/02/2023 Active Escitalopram Oxalate 20 MG Oral Tablet (Lexapro)Indications: MARCIE (generalized anxiety disorder) Take 1 Tablet by mouth in the morning. In the morning.. 90 Tablet 1 08/21/2023 Active Cetirizine HCl 10 MG Oral CapsuleIndications:Vi ral URI with cough,Acute exacerbation of chronic obstructive pulmonary disease (COPD) ([facility]) Take 1 Capsule by mouth at bedtime. 90 Capsule 3 08/21/2023 Active Melatonin 3 MG Oral Tablet Take 1 Tablet by mouth at bedtime. 30 Tablet 1 09/17/2023 Active buPROPion HCl ER (XL) 300 MG Oral Tablet Extended Release 24 Hour (Wellbutrin XL)Indications:MDD (major depressive disorder), recurrent episode, mild ([facility]) Take 1 Tablet by [...] or wheezing 18 g 3 11/22/2023 Active predniSONE 20 MG Oral Tablet (Deltasone)Indication s:COPD, group D, by GOLD 2017 classification ([facility]) Take 2 tablets daily for 5 days, followed by 1 tablet daily for 5 days. 15 Tablet 0 11/23/2023 Active Hospital, Clinic, or Other Facility Administered [...] as of this encounter (statuses as of 12/10/2023) Active Problems Problem Noted Date Diagnosed Date Chronic respiratory failure with hypoxia and hyp [...] - TRES o Class D - Inhaled Gibnypwabkosoi-UBTG-TQKR Combination Inhaler (Ludmila) o PD-4 Inhibitor (Daliresp) Self-Management plan o [...] DM Secondary Prevention o Moderate-High Intensity Statin Personal history of DVT (deep vein thrombosis) [...] 04/21/2021 Last Assessment & Plan: Referral to [employer] for assistance in getting nicoderm patches [...] Last Assessment & Plan: 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 Migraine without aura and wi thout status [...] as of this encounter (statuses as of 12/10/2023) Resolved Problems Problem Noted Date Diagnosed Date [...] week. Pt voiced understanding. Hypokalemia 07/26/2022 10/03/2022 Acute on chronic respiratory failure with hypoxia and hypercapnia 07/12/2022 09/13/2023 Morbid (severe) obesity due to excess calories [...] episodic 05/21/2018 10/15/2019 Generalized edema 10/26/2017 05/21/2018 COPD exacerbation 10/26/2017 11/08/2022 Hot flash, menopausal 10/23/20172017 Kidney disease, chronic, [...] - TRES o Class D - Inhaled Fjupbnxemfbhyp-PIGA-OVVE Combination Inhaler (Trellegy) o PD-4 Inhibitor (Daliresp) Self-Management plan o Prednisone 40mg daily for 5 days Rx o High frequency nebulizer treatments every 4-6 hours around the clock Exacerbation plan o Prednisone rescue kit Rescue kit given today. Educated on use. Must call [facility] when initiated so further assessment can be made documented as of this encounter (statuses as of 12/10/2023) Immunizations Name Administration Dates Next Due COVID-19 mRNA, LNP-s, No Pre serve, 2-Dose Series (Moderna) 01/28/2021 Pneumococcal Conjugate Vacci ne, 20-valent ([id number]) 05/10/2022 Pneumococcal Polysaccharide PPV23 (Pneumovax) 11/17/2013 Seasonal [...] encounter Miscellaneous Notes * Telephone Encounter - Andrea Mcclendon DO - 12/10/2023 3:39 PM EST Needs IOL/lisa: Yes Needs surgery scheduled: Routine Both eyes, left eye is 1st eye right eye is 2nd eye, 2-6 weeks later 3. Anesthesia: Monitored Local Anesthesia with Sedation 4. Preferred location: [facility] - needs GL 5. Time needed for IOL/lisa discussion: 15 6. Please schedule H&P w/ PCP Difficulty = 1 documented in this encounter Plan of Treatment Upcoming Encounters Date Type Department Care Team (Late st Contact Info) Description 06/18/2024 7:40 AM EDT Office Visit [facility] Brown, [address] [place] [address] Piper Cazares DO [address] [place] [address] 07/14/2024 1:00 PM EDT [facility], [address] [address] [facility], Pulm Function Room 1 [address] [place] [address] 07/14/2024 2:00 PM EDT [facility], [facility] [address] [place] [address] [facility], Pulm Function Room 2 [address] [place] [address] 07/23/2024 3:20 PM EDT [facility] [address] [place] [phone] Chance Zimmerman MD [address] [address] Health Maintenance Due Date Last Done Comments [...] - Td or Tdap) 11/17/2023 11/17/2013 HbA1c 03/10/2024 09/09/2023, 02/2023, 09/18/2022, Additional history exists GFR 05/18/2024 11/18/2023, 08/20, 09/12/2023, Additional history exists CKD PHOS USE SMARTSET 10192 09/12/202408/20, 05/21/2023, 07/27/2022, Additional history exists DISCUSS TOBACCO CESSATION (REFER TO SMARTSET #4785) 10/15/2024 10/15/2023, 05/31/2023, 01/12/2023, Additional history exists CKD HGB USE SMARTSET 46647 11/18/202411/18, 09/13/2023, 09/13/2023, Additional history exists O2 ASSESSMENT COMPLETED IN PAST YEAR FOR COPD 11/22/2024 11/22/2023 Diabetic Eye Exam 12/10/2024 12/10/2023, , 12/10/2023, Additional history exists Lipid Panel 04/19/2027 04/19/2022, 12/21, 01/21/2021, Additional history exists Cervical Cancer Screening Discontinued Pap Smear Discontinued 10/10/2016, 10/21, 11/17/2013, Additional history exists Pneumococcal Vaccine: 65+ Years Completed 05/10/2022, 11/17/2013 LUNG CANCER SCREENING - USE SMARTSET 92892 Completed 09/09/2023, 05/22/2023, 12/15/2022, Additional history exists [...] Discussion of Advance Directives occurred with: Patient Code Status History Code Status Date Activated Date Inactivated Comments Full Code 05/21/2023 5:42 PM 05/25/2023 5:24 [...] Discussion of Advance Directives occurred with: Patient Limited Code 07/12/2022 3:37 PM 07/15/2022 7:24 PM This order reflects the patients wishes and were consensually agreed upon. Question Answer Comments Discussion of Advance Directives occurred with: Patient Intubation? No Cardiac Compressions? Yes Healthcare Agents on File Name Relationship Healthcare Agent Relationship Communication Martinez GUZMAN Adult Child First Alternate Health Care Agent Peter Bergeron Other - (no specific identity) First Alternate Health Care Agent Jazmine Corona Adult Child First Alternate Health Care Agent Care Teams Survey Cad Technician Relationship Specialty Start Date End Date Marcos Maurice PA-C [address] [facility] [place] [phone] PCP - General Physician House Supervisor 11/22/23 documented as of this encounter
--- OUTSIDE RECORDS SUMMARY | 2024-04-14 13:03 | External Medical Summary | Summary of Care ---
Author Name Unknown Organization [facility] Address [address] [place] [address] Phone [phone] Care Team Providers Care Physician/Ophthalmologist Name Role Phone Marcos Maurice PA-C Primary Care Provide r Reason for Visit * Reason Comments NEW PATIENT * Evaluate & Treat - Unlimited Visits (Within 10 days (routine)) - Authorized Specialty Diagnoses / Procedures Referred By Frantz herrera Referred To Contact Ophthalmology Diagnoses Type 2 diabetes mellitus with stage 3a chronic kidney disease, without long-term current use of insulin ([facility]) Mracos Maurice PA[facility]C [address] [facility] [address] Referral ID Status Reason Start Date Expiration Date Visits Requested Visits Authorized [id number] Authorized Specialty Services Required 06/21/2023 12/22/[phone] Encounter Details Date Type Department Care Team (Late st Contact Info) Description 12/10/2023 3:00 PM EST Office Visit Ophthalmology, [address] [place] [phone] Andrea Mcclendon [place] [phone] Combined forms of age-related cataract of both eyes*; Dry eyes, bilateral; Type 2 diabetes mellitus with hemoglobin A1c goal of less than 7.0% ([facility]); Diabetic eye exam ([facility]) Allergies Active Allergy Reactions Criticality [...] GASIndications:COPD, group D, by GOLD 2017 classification ([facility] [...] MG Oral Tablet (Crestor)Indications: Cor pulmonale, chronic ([facility]),COPD, group D, by GOLD 2017 classification ([facility]),Hypertensive heart and kidney disease with chronic diastolic congestive heart failure and stage 3a chronic kidney disease ([facility]),Dyslipidemia,Es sential hypertension with goal blood [...] 0.1 % Nasal Solution (Astelin) Administer 1 [place] into nostril in the morning and 1 [place] before bedtime. 30 mL 12 01/12/2023 Active Gabapentin 600 MG Oral Tablet (Neurontin)Indication s:Generalized osteoarthritis Take 1 Tablet by mouth in the morning and 1 Tablet before bedtime. 180 Tablet 3 03/26/2023 Active Furosemide 80 MG Oral Tablet (Lasix)Indications:Ge neralized osteoarthritis,Chroni c diastolic heart failure ([facility]) Take [...] s:COPD, group D, by GOLD 2017 classification ([facility] [...] exacerbation of chronic obstructive pulmonary disease (COPD) (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 Educated on use. Must call [facility] when initiated so further assessment can be made documented as of this encounter (statuses as of 12/10/2023) Immunizations Name Administration Dates Next Due COVID-19 mRNA, LNP-s, No Pre serve, 2-Dose Series (Moderna) 01/28/2021 Pneumococcal Conjugate Vacci ne, 20-valent ([id number]) 05/10/2022 Pneumococcal Polysaccharide PPV23 (Pneumovax) 11/17/2013 Seasonal [...] Day Cigarettes 1 50 Smokeless Tobacco: Never Tobacco Cessation:Ready to Q uit: Not Asked; Counseling Given: No Comments:01/12/23 currently smoking 2 cig/day 05/31/2023 1 cig/day 09/08 4-5 [...] (15 years old or older) Yes 09/08/20 23 Cognitive Status Response Date of Assessm ent Because of a physical, menta l, or emotional condition, do you have serious difficulty concentrating, remembering, or making decisions? (5 years old or older) No 09/08/2023 documented as of this encounter Progress Notes * Andrea Mcclendon, DO - 12/10/2023 3:27 PM EST 12/10/2023 Edna Kebede is a 63 year old patient here for cataract evaluation. Referred by self Patient c/o progressively increasing difficulty with vision in both eyes at distance = near. Also c/o significant glare and halos around lights. The following activities are more difficult because of blurred vision from the cataract in the left>right EYE : Reading the newspaper: yes Reading medication labels: yes Watching TV: yes Driving during the day: yes Driving at night: yes Recognizing people: yes Past Ocular History, reviewed: Cataract Glasses (teenager, stopped wearing them after that) Eye Medications, reviewed: Denies Hx of refractive procedure, reviewed: Denies Hx of contact lens use, reviewed: Denies Hx of eye trauma, reviewed: Denies FOHx, reviewed: Denies Review of Systems Unless noted above, all other systems negative. Nursing notes reviewed. Base Eye Exam Visual Acuity (Snellen - Linear) Right Left Dist sc 20/350 20/350 Tonometry (Tonopen, 3:03 PM) Right Left Pressure 14 15 Pupils Pupils Dark Light Shape React APD Right PERRL 4 3 Round Brisk None Left PERRL 4 3 Round Brisk None Visual Thomas (Counting fingers) Right Left Full Full Extraocular Movement Right Left Full Full Dilation Both eyes: 1.0% Mydriacyl, 2.5% Phenylephrine @ 3:03 PM Additional Tests Keratometry K1 Magna K2 Magna Right 44.50 143 45.00 053 Left 44.25 032 44.50 122 Slit Lamp and Fundus Exam External Exam Right Left External Normal Normal Slit Lamp Exam Right Left Lids/Lashes DCL DCL Conjunctiva/Sclera White and quiet White and quiet Cornea PEK inferior PEK inferior Anterior Chamber Deep and quiet Deep and quiet Iris Round and reactive, PD 7mm Round and reactive, PD 7mm Lens 1.5+ NSC, 3+ PSC 1.5+ NSC, 3+ PSC Fundus Exam Right Left Vitreous Normal Normal Disc Normal Normal Macula Normal Normal Vessels Normal Normal Periphery Normal Normal Refraction Manifest Refraction Unable to obtain--cataracts A/P: Cataract OU Needs GL given pulmonary status Recommend CE/IOL left eye [...] by exam Flomax = Denies Claustrophobia = Did not discuss Anesthesia = Did not discuss - plan for mac/topical given current lung status Hx of refractive procedure=Denies IOL Measurements = To be performed IOL interpretation = Biometry (IOL) & topography [...] Last performed 11/2023 Due next 11/2024 RTC IOL/lisa or sooner prn. A/P explained, patient verbalized understanding. Patient understands to f/u immediately with questions, concerns, or any ophthalmic issues. Andrea Mcclendon DO 12/10/2023 I spent a total of 20-29 minutes (exact time 20 mins) on the date of service in preparation, delivery, and documentation of the care provided to Edna Kebede excluding any time spent in the performance of separately billed services. documented in this encounter Nursing Notes * Penelope Gasca COT - 12/10/2023 2:59 PM EST New pt here for diabetic exam/ cat eval Unsure when last eye exam was Do you check your sugar daily? YES. Did not measure this morning. Last Hemoglobin A1C: Lab Results Component Value Date/Time HGBA1C 7.5 (H) 09/09/2023 06:43 AM HGBA1C 6.5 (H) 05/22/2023 03:58 AM HGBA1C 7.3 (H) 09/18/2022 05:26 AM HGBA1C 5.7 (H) 05/30/2019 01:57 PM HGBA1C 5.7 07/05/2017 09:35 AM HGBA1C 5.8 05/29/2016 11:51 AM documented in this encounter Plan of Treatment Upcoming Encounters Date Type Department Care Team (Late st Contact Info) Description 06/18/2024 7:40 AM EDT Office Visit [facility] [address] [place] [address] Piper Cazares DO [address] [facility] [place] [address] 07/14/2024 1:00 PM EDT [facility] Pulmonary Function Lab, [facility] [address] [facility] [address] [place], Pulm Function Room 1 [address] [facility] [place] [place] [address] 07/14/2024 2:00 PM EDT [facility], [facility] [address] [place] [address] [facility], Pul Function Room 2 [address] [facility] [address] 07/23/2024 3:20 PM EDT Office Visit Pulmonary Medicine [facility] [address] [phone] Chance Zimmerman MD [address] [address] Health Maintenance Due Date Last Done Comments [...] or Tdap) 11/17/2023 11/17/2013 HbA1c 03/10/2024 09/09/2023, 07/0 02/2023, 09/18/2022, Additional history exists GFR 05/18/2024 11/18/2023, 08/20, 09/12/2023, Additional history exists CKD PHOS USE SMARTSET 71338 09/12/202408/20, 05/21/2023, 07/27/2022, Additional history exists DISCUSS TOBACCO CESSATION (REFER TO SMARTSET #1851) 10/15/2024 10/15/2023, 05/31/2023, 01/12/2023, Additional history exists CKD HGB USE SMARTSET 48812 11/18/202411/18, 09/13/2023, 09/13/2023, Additional history exists O2 ASSESSMENT COMPLETED IN PAST YEAR FOR COPD 11/22/2024 11/22/2023 Diabetic Eye Exam 12/10/2024 12/10/2023, , 12/10/2023, Additional history exists Lipid Panel 04/19/2027 04/19/2022, 12/21, 01/21/2021, Additional history exists Cervical Cancer Screening Discontinued Pap Smear Discontinued 10/10/2016, 10/21, 11/17/2013, Additional history exists Pneumococcal Vaccine: 65+ Years Completed 05/10/2022, 11/17/2013 LUNG CANCER SCREENING - USE SMARTSET 81238 Completed 09/09/2023, 05/22/2023, 12/15/2022, Additional history exists [...] Other and combined forms of senile cataract Dry eyes, bilateral Tear film insufficiency, unspecified Type 2 diabetes mellitus with hemoglobin A1c goal of less than 7.0% (HCC) Diabetic eye exam (HCC) Type II or unspecified type diabetes mellitus without mention of complication, not stated as uncontrolled documented in this encounter Advance Directives Latest [...] Name Relationship Healthcare Agent Relationship Communication Martinez GUZAMN Adult Child First Alternate Health Care Agent Peter Bergeron Other - (no specific identity) First Alternate Health Care Agent Jazmine Corona Adult Child First Alternate Health Care Agent Care Teams Physician/Ophthalmologist Relationship Specialty Start Date End Date Marcos Maurice PA-C [address] [facility] [place] [address] PCP - General Physician Volunteer Specialist 11/22/23 documented as of this encounter
--- OUTSIDE RECORDS SUMMARY | 2024-04-14 13:03 | External Medical Summary ---
Author Name Unknown Address Unknown Organization K1F:[facility] - [address] [place] [address] Laboratory Report Ordering Provider Test Date Status CHRIS BROUSSARD 12/19/2023 12:36:24 Final Rheumatoid factor at a level above 50 [...] definitively correlate with clinical severity of disease. Observation Date Value Abnormality Reference (Units ) Status Fibrin D-dimer FEU [Mass/volume] in Platelet poor plasma by Immunoassay 12/19/2023 12:36:24 1.11 Above high normal <0.50 (ug/mL FEU) Final Performing Location [facility] - [address] [place] [address]
--- OUTSIDE RECORDS SUMMARY | 2024-04-14 13:03 | External Medical Summary | Summary of Care ---
Author Name Unknown Organization [facility] Address [address] [place] [address] Phone [phone] Care Team Providers Care Encapsulator Name Role Phone Marcos Maurice PA-C Primary Care Provide r Reason for Visit * Reason Onset Date Comments Hospital Follow-Up 09/14/2023 [facility] 09/13 Encounter Details Date Type Department Care Team (Late st Contact Info) Description 09/14/[address], [place] [address] [place] [address] Beverly Cisneros, RN Hospital Follow-Up ([facility] 09/13) Allergies Active Allergy Reactions Criticality Noted Date Comments Cortisone Muscle pain Medium 04/09/2017 At site of shot Bee Venom Anaphylaxis High 06/25/2021 Hydrocortisone High 12/25/2021 Other reaction(s): PAIN,UNABLE TO MOVE documented as of this encounter (statuses as of 12/14/2023) Medications Medication Sig Dispensed Refills Start Date [...] 0.1 % Nasal Solution (Astelin) Administer 1 [place] into nostril in the morning and 1 [place] before bedtime. 30 mL 12 01/12/2023 Active [...] of chronic obstructive pulmonary disease (COPD) ([facility] Take 1 Capsule by mouth at bedtime. 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 Educated on use. Must call [facility] when initiated so further assessment can be made documented as of this encounter (statuses as of 12/14/2023) Immunizations Name Administration Dates Next Due COVID-19 mRNA, LNP-s, No Pre serve, 2-Dose Series (Moderna) 01/28/2021 Pneumococcal Conjugate Vacci ne, 20-valent (Socgapx12) 05/10/2022 Pneumococcal Polysaccharide PPV23 (Pneumovax) 11/17/2013 Seasonal [...] Used Date Smoking Tobacco: Every Day Cigarettes 0.5 45 Smokeless Tobacco: Never Comments:01/12/23 currently s moking [...] Telephone Encounter - Beverly Cisneros RN - 09/14/2023 2:33 PM EDT Transitions of Care Note Reason for Referral:Recent Admission Phone visit for follow up: BRYAN Admitted to: [facility], Date: 09/08 Discharged to: home, Date: 09/13 Diagnosis driving hospitalization: *Principal Diagnosis - Acute on chronic respiratory failure with hypoxia and hypercapnia (HCC) 09/13/2023 Acute exacerbation of chronic obstructive pulmonary disease (COPD) (HCC) 09/13/2023 Message left on voicemail. If pt reaches the call center she can be transferred to id at [phone]. Thank you documented in this encounter Plan of Treatment Upcoming Encounters Date Type Department Care Team (Late st Contact Info) Description 06/18/2024 7:40 AM EDT Office Visit [facility], [place] [address] [place] [address] Piper Cazares DO [address] [place] [address] 07/14/2024 1:00 PM EDT [facility], [address] [place] [address] [facility], Pulm Function Room 1 [address] [facility] [place] [address] 07/14/2024 2:00 PM EDT [facility], [facility] [address] [facility] [place] [address] [facility], [facility] [address] [facility] [place] [address] 07/23/2024 3:20 PM EDT Office Visit Pulmonary Medicine Pratibha Anguiano [address] [place] [phone] Chance Zimmerman MD [address] [place] [address] Health Maintenance Due Date Last Done Comments [...] Additional history exists CKD PHOS USE SMARTSET 48606 09/12/202408/20, 05/21/2023, 07/27/2022, Additional history exists DISCUSS TOBACCO CESSATION (REFER TO SMARTSET #2981) 10/15/2024 10/15/2023, 05/31/2023, 01/12/2023, Additional history exists CKD HGB USE SMARTSET 78412 11/18/202411/18, 09/13/2023, 09/13/2023, Additional history exists O2 ASSESSMENT COMPLETED IN PAST YEAR FOR COPD 11/22/2024 11/22/2023 Diabetic Eye Exam 12/10/2024 12/10/2023, , 12/10/2023, Additional history exists Lipid Panel 04/19/2027 04/19/2022, 12/21, 01/21/2021, Additional history exists Cervical Cancer Screening Discontinued Pap Smear Discontinued 10/10/2016, 10/21, 11/17/2013, Additional history exists Pneumococcal Vaccine: 65+ Years Completed 05/10/2022, 11/17/2013 LUNG CANCER SCREENING - USE SMARTSET 23324 Completed 09/09/2023, 05/22/2023, 12/15/2022, Additional history exists [...] Peter Bergeron Other - (no specific identity) [facility] Alternate Health Care Agent Jazmine Corona Adult Child First Alternate Health Care Agent Care Teams Encapsulator Relationship Specialty Start Date End Date Marcos Maurice PA-C [address] [facility] [place] [phone] PCP - General Physician Procedure Rn 11/22/23 documented as of this encounter
--- OUTSIDE RECORDS SUMMARY | 2024-04-14 13:03 | External Medical Summary ---
Author Name Unknown Address Unknown Organization K1F:[facility] [address] [facility] [place] [address] Laboratory Report Ordering Provider Test Date Status CHRIS BROUSSARD 12/19/2023 13:42:52 Final Observation Date Value Abnormality Reference (Units ) Status Body temperature 12/19/2023 13:42:52 37.0 (C) Final pH of Venous blood 12/19/2023 13:42:52 7.421 7.320-7.430 (units) Final Carbon dioxide [Partial pressure] in Venous blood 12/19/2023 13:42:52 73.0 Above high normal 40.0-60.0 (mmHg) Final Oxygen [Partial pressure] in Venous blood 12/19/2023 13:42:52 29.7 25.0-50.0 (mmHg) Final Base excess, Capillary 12/19/2023 13:42:52 19.1 Above high normal -2.0-2.0 (mmol/L) Final Hemoglobin [Mass/volume] in Blood by Oximetry 12/19/2023 13:42:52 9.9 Below low normal 12.0-15.3 (g/dL) Final Oxyhemoglobin, Venous (FO2HB) 12/19/2023 13:42:52 45.0 40.0-85.0 (% total Hgb) Final Carboxyhemoglobin 12/19/2023 13:42:52 2.2 Above high normal <=1.5 (% total Hgb) Final Smokers: 0-9.0 % Methemoglobin 12/19/2023 13:42:52 0.9 <= 1.5 (% total Hgb) Final Deoxyhemoglobin/Hemoglo bin.total in Venous blood 12/19/2023 13:42:52 51.9 (% total Hgb) Final Oxygen content in Venous blood 12/19/2023 13:42:52 6.3 Below low normal 7.0-18.0 (%vol) F inal Bicarbonate, Venous, POC (i-STAT) 12/19/2023 13:42:52 46.6 Above high normal 23.0-31.0 (mmol/L) Final Performing Location LABORATORY [facility] - [address] [facility] [address] [place] [address]
--- OUTSIDE RECORDS SUMMARY | 2024-04-14 13:03 | External Medical Summary ---
Author Name Unknown Address Unknown Organization K1F:[facility]ORY [facility] - [address] [place] [address] Laboratory Report Ordering Provider Test Date Status AARTICHRIS 12/19/2023 12:36:24 Final Observation Date Value Abnormality Reference (Units ) Status Phosphate 12/19/2023 12:36:24 2.6 2.5-4.8 (m g/dL) Final Performing Location LAB[facility]ATORY [facility] - [address] [place] [address]
--- OUTSIDE RECORDS SUMMARY | 2024-04-14 13:03 | External Medical Summary ---
Author Name Unknown Address Unknown Organization K1F:[facility] [address] [facility] [place] [address] Laboratory Report Ordering Provider Test Date Status CHRIS BROUSSARD 12/19/2023 12:36:24 Final Observation Date Value Abnormality Reference (Units ) Status BUN 12/19/2023 12:36:24 24 Above high normal 6-20 (mg/dL) Final Creatinine 12/19/2023 12:36:24 1.2 Above high normal 0.5-1.0 (mg/dL) Final Glomerular filtration rate/1.73 sq M.predicted [Volume Rate/Area] in Serum, Plasma or Blood by Creatinine-based formula (CKD-EPI) 12/19/2023 12:36:24 49 Below low normal >=60 (mL/min) Final eGFR is calculated based on the CKD-EPI 2020 equation SODIUM 12/19/2023 12:36:24 141 135-146 (m mol/L) Final Potassium 12/19/2023 12:36:24 2.7 Below low normal 3.5 -5.1 (mmol/L) Final Cl 12/19/2023 12:36:24 87 Below low normal 98- 107 (mmol/L) Final CO2 12/19/2023 12:36:24 42 Above high normal 22 -32 (mmol/L) Final Anion gap 12/19/2023 12:36:24 12 7-15 (mmol /L) Final Glucose 12/19/2023 12:36:24 240 Above high normal 70 -120 (mg/dL) Final Albumin 12/19/2023 12:36:24 3.8 3.8-5.0 (g /dL) Final AST (Aspartate aminotransferase) 12/19/2023 12:36:24 20 10-35 (U/L) Fin al Alk Phos 12/19/2023 12:36:24 120 35-130 (U/ L) Final Bilirubin, Total 12/19/2023 12:36:24 0.3 <=1 .2 (mg/dL) Final Calcium 12/19/2023 12:36:24 8.9 8.4-10.2 ( mg/dL) Final Protein 12/19/2023 12:36:24 6.6 6.0-8.3 (g /dL) Final ALT (Alanine aminotransferase) 12/19/2023 12:36:24 12 10-35 (U/L) Umang conrad Performing Location LABORATORY [address] [place] [address]
--- OUTSIDE RECORDS SUMMARY | 2024-04-14 13:03 | External Medical Summary ---
Author Name Unknown Address Unknown Organization K1F:LABORATORY [facility] - [address] [place] [address] Laboratory Report Ordering Provider Test Date Status [...] (pg/mL) Final Performing Location LABORATORY [facility] - [address] [place] [address]
--- OUTSIDE RECORDS SUMMARY | 2024-04-14 13:03 | External Medical Summary ---
Author Name Unknown Address Unknown Organization K1F:[facility]ORY [facility] - [address] [place] [address] Laboratory Report Ordering Provider Test Date Status PRAVEENA,WHITE 12/19/2023 20:40:16 Final Perform 4 hours after starti ng NIV Observation Date Value Abnormality Reference (Units) Status Body temperature 12/19/2023 20:40:16 37.0 (C) Final pH of Arterial blood 12/19/2023 20:40:16 7.416 7.350-7.450 (units) Final Carbon dioxide [Partial pressure] in Arterial blood 12/19/2023 20:40:16 62.1 Above upper panic limits 35.0-45.0 (mmHg) Final Oxygen [Partial pressure] in Arterial blood 12/19/2023 20:40:16 78.9 75.0-100.0 (mmHg) Final Base excess, Arterial 12/19/2023 20:40:16 13.0 Above high normal -2.0-2.0 (mmol/L) Final Hemoglobin [Mass/volume] in Blood by Oximetry 12/19/2023 20:40:16 9.4 Below low normal 12.0-15.3 (g/dL) Final Oxyhemoglobin, Arterial (FO2HB) 12/19/2023 20:40:16 92.7 Below low normal 94.0-99.0 (% total Hgb) Final Carboxyhemoglobin 12/19/2023 20:40:16 2.2 Above high normal <=1.5 (% total Hgb) Final Smokers: 0-9.0 % Methemoglobin 12/19/2023 20:40:16 0.5 <= 1.5 (% total Hgb) Final Deoxyhemoglobin/Hemoglo bin.total in Arterial blood 12/19/2023 20:40:16 4.6 0.0-5.0 (% total Hgb) Final Oxygen content in Arterial blood 12/19/2023 20:40:16 12.4 Below low normal 15.0-24.0 (%vol) Final Oxygen/Total gas setting [Volume Fraction] Ventilator 12/19/2023 20:40:16 40 (%) Final bipap 08/23 O2 FLOW, [facility] 12/19/2023 20:40:16 Not Provided (L/min) Final Bicarbonate, Venous, POC (i-STAT) 12/19/2023 20:40:16 39.2 Above high normal 23.0-31.0 (mmol/L) Final Performing Location LABORATORY [facility] - [address] [place], [place] [address] [address]
--- OUTSIDE RECORDS SUMMARY | 2024-04-14 13:03 | External Medical Summary ---
Author Name Unknown Address Unknown Organization K1F:LABORATORY [facility] - [address] [place] [address] Laboratory Report Ordering Provider Test Date Status CHRIS BROUSSARD 12/19/2023 14:00:00 Final Observation Date Value Abnormality Reference (Units ) Status Troponin T 12/19/2023 14:00:00 75 Above high normal < =14 (ng/L) Final Performing Location LABORATORY [facility] - [address] [place] [address]
--- OUTSIDE RECORDS SUMMARY | 2024-04-14 13:03 | External Medical Summary ---
Author Name Unknown Address Unknown Organization : Laboratory Report Ordering Provider Test Date Status MARCUS PINA 12/19/2023 17:38:24 Final Observation Date Value Abnormality Reference (Units ) Status Glucose Point of Care 12/19/2023 17:38:24 356 Above high normal 70-120 (mg/dL) Final Performing Location
--- OUTSIDE RECORDS SUMMARY | 2024-04-14 13:03 | External Medical Summary ---
Author Name Unknown Address Unknown Organization : Laboratory Report Ordering Provider Test Date Status MARCUS PINA 12/19/2023 18:12:47 Final Observation Date Value Abnormality Reference (Units ) Status Glucose Point of Care 12/19/2023 18:12:47 418 Above high normal 70-120 (mg/dL) Final Performing Location
--- OUTSIDE RECORDS SUMMARY | 2024-04-14 13:03 | External Medical Summary ---
Author Name Unknown Address Unknown Organization : Laboratory Report Ordering Provider Test Date Status MARCUS PINA 12/19/2023 21:37:52 Final Observation Date Value Abnormality Reference (Units ) Status Glucose Point of Care 12/19/2023 21:37:52 479 Above high normal 70-120 (mg/dL) Final Performing Location
--- OUTSIDE RECORDS SUMMARY | 2024-04-14 13:03 | External Medical Summary ---
Author Name Unknown Address Unknown Organization K1F:LABORATORY [facility] - [address] [place] [address] Laboratory Report Ordering Provider Test Date Status CHRIS BROUSSARD 12/19/2023 12:36:24 Final Observation Date Value Abnormality Reference (Units ) Status Troponin T 12/19/2023 12:36:24 84 Above high normal < =14 (ng/L) Final Performing Location LABORATORY [facility] - [address] [place] [address]
--- OUTSIDE RECORDS SUMMARY | 2024-04-14 13:03 | External Medical Summary ---
Author Name Unknown Address Unknown Organization K1F:LABORATORY [facility] - [address] [facility] [place] [address] Laboratory Report Ordering Provider Test Date Status CHRIS BROUSSARD 12/19/2023 12:50:30 Final SYMPTOMATIC Observation Date Value Abnormality Reference (Units ) Status Adenovirus DNA [Presence] in Nasopharynx by LANA with non-probe detection 12/19/2023 12:50:30 Negative Negative Final Human coronavirus 229E RNA [Presence] in Nasopharynx by LANA with non-probe detection 12/19/2023 12:50:30 Negative Negative Final Human coronavirus HKU1 RNA [Presence] in Nasopharynx by LANA with non-probe detection 12/19/2023 12:50:30 Negative Negative Final Human coronavirus NL63 RNA [Presence] in Nasopharynx by LANA with non-probe detection 12/19/2023 12:50:30 Negative Negative Final Human coronavirus OC43 RNA [Presence] in Nasopharynx by LANA with non-probe detection 12/19/2023 12:50:30 Negative Negative Final SARS-CoV-2 (COVID-19) RNA [Presence] in Nasopharynx by LANA with non-probe detection 12/19/2023 12:50:30 Negative Negative Final Human metapneumovirus RNA [Presence] in Nasopharynx by LANA with non-probe detection 12/19/2023 12:50:30 Negative Negative Final Rhinovirus+Enterovirus RNA [Presence] in Nasopharynx by LANA with non-probe detection 12/19/2023 12:50:30 Negative Negative Final Influenza virus A RNA [Presence] in Nasopharynx by LANA with non-probe detection 12/19/2023 12:50:30 Negative Negative Final Influenza virus B RNA [Presence] in Nasopharynx by LANA with non-probe detection 12/19/2023 12:50:30 Negative Negative Final Parainfluenza virus 1 RNA [Presence] in Nasopharynx by LANA with non-probe detection 12/19/2023 12:50:30 Negative Negative Final Parainfluenza virus 2 RNA [Presence] in Nasopharynx by LANA with non-probe detection 12/19/2023 12:50:30 Negative Negative Final Parainfluenza virus 3 RNA [Presence] in Nasopharynx by LANA with non-probe detection 12/19/2023 12:50:30 Negative Negative Final Parainfluenza virus 4 RNA [Presence] in Nasopharynx by LANA with non-probe detection 12/19/2023 12:50:30 Negative Negative Final Respiratory syncytial virus RNA [Presence] in Nasopharynx by LANA with non-probe detection 12/19/2023 12:50:30 Negative Negative Final Bordetella pertussis.pertussis toxin promoter region [Presence] in Nasopharynx by LANA with non-probe detection 12/19/2023 12:50:30 Negative Negative Final Chlamydophila pneumoniae DNA [Presence] in Nasopharynx by LANA with non-probe detection 12/19/2023 12:50:30 Negative Negative Final Mycoplasma pneumoniae DNA [Presence] in Nasopharynx by LANA with non-probe detection 12/19/2023 12:50:30 Negative Negative Final Bordetella parapertussis [id number] DNA [Presence] in Nasopharynx by LANA with non-probe detection 12/19/2023 12:50:30 Negative Negative Final
The primers that detect Rhinovirus may cross react with some Enterorviruses. The validation of bronchial specimens, tracheal aspirates, and throats for this assay was developed and performance characteristics determined by [facility]. The validation of alternate specimen types has not been cleared or approved by the U.S. Food and Drug Administration (FDA). It has been determined that such clearance or approval is not necessary. [facility] - [address] [facility] [address]. [facility] [address]
--- OUTSIDE RECORDS SUMMARY | 2024-04-14 13:03 | External Medical Summary ---
Author Name Unknown Address Unknown Organization K1F:LABORATORY [facility] - [address] [place], [place] [address] [address] Laboratory Report Ordering Provider Test Date Status CHRIS BROUSSARD 12/19/2023 12:36:24 Final Observation Date Value Abnormality Reference (Units ) Status WBC, Total 12/19/2023 12:36:24 8.02 4.00-10.80 (K/uL) Final RBC 12/19/2023 12:36:24 3.39 3.85-5.15 (M/uL) Final Hemoglobin 12/19/2023 12:36:24 10.2 Below low normal 12.0-15.3 (g/dL) Final HCT 12/19/2023 12:36:24 32.9 Below low normal 36.0-45.2 (%) Final MCV 12/19/2023 12:36:24 97.1 81.5-97.5 (fL) Final MCH 12/19/2023 12:36:24 30.1 27.0-34.0 (pg) Final MCHC 12/19/2023 12:36:24 31.0 32.0-36.0 (g/dL) Final RDW 12/19/2023 12:36:24 16.4 11.5-15.5 (%) Final Platelets 12/19/2023 12:36:24 374 140-400 (K/uL) Final MPV 12/19/2023 12:36:24 9.3 6.6-11.1 (fL) Final Nucleated erythrocytes/100 leukocytes [Ratio] in Blood by Automated count 12/19/2023 12:36:24 0 <=0 (/100 WBCs) Final Performing Location LABORATORY [facility] - [address] [place] [address]
--- OUTSIDE RECORDS SUMMARY | 2024-04-14 13:03 | External Medical Summary ---
Author Name Unknown Address Unknown Organization K1F:LABORATORY [facility] - [address] [place] [address] Laboratory Report Ordering Provider Test Date Status ERIKA GRISSOM 12/19/2023 17:34:00 Final Observation Date Value Abnormality Reference (Units ) Status BUN 12/19/2023 17:34:00 23 Above high normal 6-20 (mg/dL) Final Creatinine 12/19/2023 17:34:00 1.1 Above high normal 0.5-1.0 (mg/dL) Final Glomerular filtration rate/1.73 sq M.predicted [Volume Rate/Area] in Serum, Plasma or Blood by Creatinine-based formula (CKD-EPI) 12/19/2023 17:34:00 53 Below low normal >=60 (mL/min) Final eGFR is calculated based on the CKD-EPI 2020 equation SODIUM 12/19/2023 17:34:00 138 135-146 (m mol/L) Final Potassium 12/19/2023 17:34:00 3.4 Below low normal 3.5 -5.1 (mmol/L) Final Cl 12/19/2023 17:34:00 87 Below low normal 98- 107 (mmol/L) Final CO2 12/19/2023 17:34:00 39 Above high normal 22 -32 (mmol/L) Final Anion gap 12/19/2023 17:34:00 12 7-15 (mmol /L) Final Glucose 12/19/2023 17:34:00 394 Above high normal 70 -120 (mg/dL) Final Calcium 12/19/2023 17:34:00 8.4 8.4-10.2 ( mg/dL) Final Performing Location LABORATORY [facility] - [address] [place] [address]
--- OUTSIDE RECORDS SUMMARY | 2024-04-14 13:03 | External Medical Summary ---
Author Name Unknown Address Unknown Organization K1F:LABORATORY [facility] - [address] [place] [address] Laboratory Report Ordering Provider Test Date Status ERIKA GRISSOM 12/19/2023 12:36:24 Final Less than 0.5 ng/mL: Low ris k for progression to sepsis. Review patients condition for localized infections.

0.5 to 2.0 ng/mL: Intermediate risk for progresion to sepsis. Review underlying conditions. Recommend repeat PCT after 6 hours has elapsed.

Greater than 2.0 ng/mL: high risk for progression to sepsis unless other causes are known. Observation Date Value Abnormality Reference (Units ) Status Procalcitonin [Mass/volume] in Serum or Plasma by Immunoassay 12/19/2023 12:36:24 2.02 Above high normal <0.10 (ng/mL) Final Performing Location LABORATORY [facility] - [address] [place] [address]
--- OUTSIDE RECORDS SUMMARY | 2024-04-14 13:03 | External Medical Summary ---
Author Name Unknown Address Unknown Organization K1F:[facility] [address] [facility] [place] [address] Laboratory Report Ordering Provider Test Date Status CHRIS BROUSSARD 12/19/2023 12:36:24 Final Observation Date Value Abnormality Reference (Units ) Status SYNC LEUKOCYTES IN BLOOD BY AUTOMATED COUNT 12/19/2023 12:36:24 8.02 4.00-10.80 (K/uL) Final Segs 12/19/2023 12:36:24 78.3 Above high normal 40.0-75.0 (%) Final Lymphs % 12/19/2023 12:36:24 12.3 Below low normal 18.0-42.0 (%) Final Monos 12/19/2023 12:36:24 6.9 1.0-11.0 (%) Final Eosinophils 12/19/2023 12:36:24 1.9 0.0-6.0 (%) Final Basos 12/19/2023 12:36:24 0.1 0.0-2.0 (%) Final Immature Granulocyte, Percent 12/19/2023 12:36:24 0.5 0.0-2.0 (%) Final Absolute Segs 12/19/2023 12:36:24 6.28 1.80-7.70 (K/uL) Final Lymphs, absolute 12/19/2023 12:36:24 0.99 Below low normal 1.00-4.80 (K/ul) Final Monos, Abs 12/19/2023 12:36:24 0.55 0.00-1.10 (K/uL) Final Eos, Abs 12/19/2023 12:36:24 0.15 0.00-0.70 (K/uL) Final Basos, Abs 12/19/2023 12:36:24 0.01 0.00-0.20 (K/uL) Final Immature Granulocytes, Number 12/19/2023 12:36:24 0.04 0.00-0.20 (K/uL) Final Performing Location LABORATORY [facility] - [address] [facility] [address] [place] [address]
--- OUTSIDE RECORDS SUMMARY | 2024-04-14 13:03 | External Medical Summary ---
Author Name Unknown Address Unknown Organization K1F:LABORATORY [facility] - [address] [place] [address] Laboratory Report Ordering Provider Test Date Status CHRIS BROUSSARD 12/19/2023 14:00:00 Final Less than 0.5 ng/mL: Low ris [...] in Serum or Plasma by Immunoassay 12/19/2023 14:00:00 1.99 Above high normal <0.10 (ng/mL) Final Performing Location LABORATORY [facility] - [address] [place] [address]
--- OUTSIDE RECORDS SUMMARY | 2024-04-14 13:03 | External Medical Summary ---
Author Name Unknown Address Unknown Organization K1F:LABORATORY [facility] - [address] [place] [address] Laboratory Report Ordering Provider Test Date Status CHRIS BROUSSARD 12/19/2023 12:36:24 Final Warfarin Therapy
INR: 2 .0-3.0 conventional anticoagulation
INR: 2.5- 3.5 high intensity anticoagulation Observation Date Value Abnormality Reference (Units ) Status PT 12/19/2023 12:36:24 13.3 11.6-15.2 (seconds) Final INR 12/19/2023 12:36:24 1.0 0.8-1.2 Final Performing Location LABORATORY [facility] - [address] [place] [address]
--- OUTSIDE RECORDS SUMMARY | 2024-04-14 13:03 | External Medical Summary ---
Author Name Unknown Address Unknown Organization K1F:LABORATORY [facility] - [address] [place] [address] Laboratory Report Ordering Provider Test Date Status CHRIS BROUSSARD 12/19/2023 12:36:24 Final Observation Date Value Abnormality Reference (Units ) Status Magnesium 12/19/2023 12:36:24 1.9 1.5-2.6 (m g/dL) Final Performing Location LABORATORY [facility] - [address] [place] [address]
--- OUTSIDE RECORDS SUMMARY | 2024-04-14 13:03 | External Medical Summary ---
Author Name Unknown Address Unknown Organization K01:[facility] [place] [address] [place] [address] Laboratory Report Ordering Provider Test Date Status ERIKA GRISSOM 12/19/2023 17:20:38 Final Observation Date Value Abnormality Reference (Units ) Status Methicillin resistant Staphylococcus aureus (MRSA) DNA [Presence] in Nose by LANA with probe detection 12/19/2023 17:20:38 Negative Negative Final No Methicillin resistant Sta phylococcus aureus detected by PCR (amplified probe). Performing Location [facility] [place] [address] [place] [address]
[2024-04-14] MEDS ORDERED: DEXTROSE 50% 50 ML SYRINGE IV PRN (13:04)
[2024-04-14] MEDS ORDERED: GLUCOSE 40% GEL 15 GM TUBE PO PRN (13:04)
[2024-04-14] MEDS ORDERED: GLUCAGON FOR INJ 1 MG VIAL SQ PRN (13:04)
[2024-04-14] MEDS ORDERED: CARBOHYDRATES FOR HYPOGLYCEMIA PO PRN (13:04)
[2024-04-14] MEDS ORDERED: GLUCOSE 10 TAB/TUBE PO PRN (13:04)
--- OUTSIDE RECORDS SUMMARY | 2024-04-14 13:04 | External Medical Summary | Summary of Care ---
Author Name Unknown Organization [facility] Address [address] [place] [address] Phone [phone] Care Team Providers Care Fig Caprifier Name Role Phone Marcos Maurice PA-C Primary Care Provide r Reason for Visit * Reason Onset Date Comments Follow Up 12/07/2023 COPD Pro[facility] 90 day f/u Encounter Details Date Type Department Care Team (Late st Contact Info) Description 12/07/2023 Telephone Pulmonary Function Lab, [facility] [address] [place] [address] Debra Larsen, GEOCHEMIST Follow Up (COPD Proven [facility] 90 day f/u ) Allergies Active Allergy Reactions Criticality Noted Date Comments Cortisone Muscle pain Medium 04/09/2017 At site of shot Bee Venom Anaphylaxis High 06/25/2021 Hydrocortisone High 12/25/2021 Other reaction(s): PAIN,UNABLE TO MOVE documented as of this encounter (statuses as of 12/07/2023) Medications Medication Sig Dispensed Refills Start Date [...] MG Oral Tablet (Crestor)Indications: Cor pulmonale, chronic ([facility]),COPD, group D, by GOLD 2017 classification ([facility]),Hypertensive heart and kidney disease with chronic diastolic congestive heart failure and stage 3a chronic kidney disease ([facility]),Dyslipidemia,Es sential hypertension with goal blood [...] without long-term current use of insulin ([facility]) Take 1 Tablet by mouth in the morning. 30 Tablet 11/22/2022 Active metFORMIN HCl 1000 MG Oral Tablet (Glucophage)Indicatio ns:Type 2 diabetes mellitus with stage 3a chronic kidney disease, without long-term current use of insulin ([facility]) Take 1 Tablet by mouth 2 times a day with morning and evening meals. 60 Tablet 5 11/22/2022 Active Azelastine HCl 0.1 % Nasal Solution (Astelin) Administer 1 [place] into nostril in the morning and 1 [place] before bedtime. 30 mL 12 01/12/2023 Active [...] s:COPD, group D, by GOLD 2017 classification ([facility]) Inhale 1 Vial via nebulizer [...] of chronic obstructive pulmonary disease (COPD) ([facility]) Take 1 Capsule by mouth [...] as of this encounter (statuses as of 12/07/2023) Active Problems Problem Noted Date Diagnosed Date [...] - TRES o Class D - Inhaled Icztbraiiflojz-RSBF-SUEN Combination Inhaler (Trellegy) o PD-4 Inhibitor (Daliresp) [...] 04/21/2021 Last Assessment & Plan: Referral to [employer] for assistance in getting nicoderm patches covered [...] Assessment & Plan: 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 Educated on use. Must call [facility] when initiated so further assessment can be made documented as of this encounter (statuses as of 12/07/2023) Immunizations Name Administration Dates Next Due COVID-19 mRNA, LNP-s, No Pre serve, 2-Dose Series (Moderna) 01/28/2021 Pneumococcal Conjugate Vacci ne, 20-valent ([id number]) 05/10/2022 Pneumococcal Polysaccharide PPV23 (Pneumovax) 11/17/2013 Seasonal [...] Notes * Telephone Encounter - Debra Larsen, GEOCHEMIST - 12/07/2023 2:19 PM EST Follow-Up Phone Call Patient Name: Edna Kebede Discharge Date: 09/13/23 Date of Call: 12/07/2023 Time of Call: 2:19 PM Patient successfully contacted? No, LVM. documented in this encounter Plan of Treatment Upcoming Encounters Date Type Department Care Team (Late st Contact Info) Description 12/10/2023 3:00 PM EST Office Visit Ophthalmology, [place] [address] Andrea [place] [address] 06/18/2024 7:40 AM EDT Office Visit [facility], [place] [address] [place] [address] Piper Cazares DO [address] [facility] [place] [address] 07/14/2024 1:00 PM EDT PulmDiagnostic Pulmonary Function Lab, [address] [address] [facility], Pulm Function Room [address] [place], [place] [address] [address] 07/14/2024 2:00 PM EDT PulmDiagnostic Pulmonary Function Lab, [address] [address] [facility] [address] [facility] [address] 07/23/2024 3:20 PM EDT Office Visit Pulmonary Medicine [facility] [address] [place] [phone] Chance Zimmerman MD [address] [place] [address] Health Maintenance Due Date Last Done Comments Alpha-1 Antitrypsin 1976 Diabetic Eye Exam 1976 Diabetic Foot Exam 1976 Cologuard 2003 [...] or Tdap) 11/17/2023 11/17/2013 HbA1c 03/10/2024 09/09/2023, 0702/2023, 09/18/2022, Additional history exists GFR 05/18/2024 11/18/2023, 08/20, 09/12/2023, Additional history exists CKD PHOS USE SMARTSET 81386 09/12/202408/20, 05/21/2023, 07/27/2022, Additional history exists DISCUSS TOBACCO CESSATION (REFER TO SMARTSET #3291) 10/15/2024 10/15/2023, 05/31/2023, 01/12/2023, Additional history exists CKD HGB USE SMARTSET 26161 11/18/202411/18, 09/13/2023, 09/13/2023, Additional history exists O2 ASSESSMENT COMPLETED IN PAST YEAR FOR COPD 11/22/2024 11/22/2023 Lipid Panel 04/19/2027 04/19/2022, 12/21, 01/21/2021, Additional history exists Cervical Cancer Screening Discontinued Pap Smear Discontinued 10/10/2016, 10/21, 11/17/2013, Additional history exists Pneumococcal Vaccine: 65+ Years Completed 05/10/2022, 11/17/2013 LUNG CANCER SCREENING - USE SMARTSET 15104 Completed 09/09/2023, 05/22/2023, 12/15/2022, Additional history exists [...] First Alternate Health Care Agent Care Teams Fig Caprifier Relationship Specialty Start Date End Date Marcos Maurice PA-C [facility] [place] [address] PCP - General Physician Referral Coordinator 11/22/23 documented as of this encounter
--- OUTSIDE RECORDS SUMMARY | 2024-04-14 13:04 | External Medical Summary | Summary of Care ---
Author Name Unknown Organization [facility] Address [address] [place] [address] Phone [phone] Care Team Providers Care Tutor Coordinator Name Role Phone Marcos Maurice PA-C Primary Care Provide r Reason for Visit * Reason Onset Date Comments Sick 11/23/2023 Short of breath/ wheezing seen pcp yesterday. Advised to call pulmonary Encounter Details Date Type Department Care Team (Late st Contact Info) Description 11/23/2023 Telephone Pulmonary Medicine [facility] [address] [place] [phone] Marek Berger PA-C [address] [place] [address] Sick (Short of breath/wheezing seen pcp ye... Allergies Active Allergy Reactions Criticality Noted Date Comments Cortisone Muscle pain Medium 04/09/2017 At site of shot Bee Venom Anaphylaxis High 06/25/2021 Hydrocortisone High 12/25/2021 Other reaction(s): PAIN,UNABLE TO MOVE documented as of this encounter (statuses as of 11/23/2023) Medications Medication Sig Dispensed Refills Start Date [...] Tablet (Crestor)Indications: Cor pulmonale, chronic ([facility]),COPD, group D, by GOLD 2017 classification ([facility]),Hypertensive heart and kidney disease with chronic diastolic congestive heart failure and stage 3a chronic kidney disease ([facility]),Dyslipidemia,Es sential hypertension with goal blood pressure [...] long-term current use of insulin ([facility]) Take 1 Tablet by mouth in the morning. 30 Tablet 11 11/22/2022 Active metFORMIN HCl 1000 MG Oral Tablet (Glucophage)Indicatio ns:Type 2 diabetes mellitus with stage 3a chronic kidney disease, without long-term current use of insulin ([facility]) Take 1 Tablet by mouth 2 times a day with morning and evening meals. 60 Tablet 5 11/22/2022 Active Azelastine HCl 0.1 % Nasal Solution (Astelin) Administer 1 [place] into nostril in the morning and 1 [place] before bedtime. 30 mL 12 01/12/2023 Active Gabapentin 600 MG Oral Tablet (Neurontin)Indication s:Generalized osteoarthritis Take 1 Tablet by mouth in the morning and 1 Tablet before bedtime. 180 Tablet 3 03/26/2023 Active Furosemide 80 MG Oral Tablet (Lasix)Indications:Ge neralized osteoarthritis,Chroni c diastolic heart failure ([facility]) Take 1 Tablet by mouth in [...] D, by GOLD 2017 classification ([facility]) Inhale 1 Vial via nebulizer every [...] chronic obstructive pulmonary disease (COPD) ([facility]) Take 1 Capsule by mouth at bedtime. 90 Capsule 3 08/21/2023 Active Melatonin 3 MG Oral Tablet Take 1 Tablet by mouth at bedtime. 30 Tablet 1 09/17/2023 Active buPROPion HCl ER (XL) 300 MG Oral Tablet Extended Release 24 Hour (Wellbutrin XL)Indications:MDD (major depressive disorder), recurrent episode, mild ([facility]) Take 1 Tablet by mouth in [...] as of this encounter (statuses as of 11/23/2023) Active Problems Problem Noted Date Diagnosed Date [...] - TRES o Class D - Inhaled Qhwbolcqekfrfw-IPFK-XOFJ Combination Inhaler (Trellegy) o PD-4 Inhibitor (Daliresp) [...] 04/21/2021 Last Assessment & Plan: Referral to [employer] for assistance in getting nicoderm patches covered [...] Last Assessment & Plan: 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 Educated on use. Must call [facility] when initiated so further assessment can be made documented as of this encounter (statuses as of 11/23/2023) Immunizations Name Administration Dates Next Due COVID-19 mRNA, LNP-s, No Pre serve, 2-Dose Series (Moderna) 01/28/2021 Pneumococcal Conjugate Vacci ne, 20-valent ([id number]) 05/10/2022 Pneumococcal Polysaccharide PPV23 (Pneumovax) 11/17/2013 Seasonal [...] Telephone Encounter - Brittney Cross LPN - 11/23/2023 3:22 PM EST Called the pt and her daughter Jazmine and left messages on both phone about the prednisone being called into the pharmacy and to call with any questions. * Telephone Encounter - Marek Berger PA-C - 11/23/2023 12:48 PM EST Steroid sent in. * Telephone Encounter - Viry Trejo OSA - 11/23/2023 10:37 AM EST Patient's daughter Jazmine calling about patient being short of breath and wheezing. Patient was seen by pcp yesterday and advised to call pulmonary. Patient's daughter is requesting a steroid for her mother, to [facility] in [place]. Please advise. documented in this encounter Plan of Treatment Upcoming Encounters Date Type Department Care Team (Late st Contact Info) Description 12/10/2023 3:00 PM EST [facility] [place] [facility] [place] [address] Andrea Mcclendon DO [facility] [address] 06/18/2024 7:40 AM EDT [facility] [address] [place] [address] Piper Cazares DO [address] [place] [address] 07/14/2024 1:00 PM EDT PulmDiagnostic Pulmonary Function Lab, [address] [place] [address] [place], Pulm Function Room 1 [address] [place] [address] 07/14/2024 2:00 PM EDT PulmDiagnostic Pulmonary Function Lab, [facility] [address] [place] [address] [place], Pulm Function Room 2 [address] [place] [address] 07/23/2024 3:20 PM EDT Office Visit Pulmonary Medicine [place] [address] [place] [phone] Chance Zimmerman MD [address] [place] [address] Health Maintenance Due Date Last Done Comments [...] Additional history exists CKD PHOS USE SMARTSET 51161 09/12/202408/20, 05/21/2023, 07/27/2022, Additional history exists DISCUSS TOBACCO CESSATION (REFER TO SMARTSET #3291) 10/15/2024 10/15/2023, 05/31/2023, 01/12/2023, Additional history exists CKD HGB USE SMARTSET 56060 11/18/202411/18, 09/13/2023, 09/13/2023, Additional history exists O2 ASSESSMENT COMPLETED IN PAST YEAR FOR COPD 11/22/2024 11/22/2023 Lipid Panel 04/19/2027 04/19/2022, 12/21, 01/21/2021, Additional history exists Cervical Cancer Screening Discontinued Pap Smear Discontinued 10/10/2016, 10/21, 11/17/2013, Additional history exists Pneumococcal Vaccine: 65+ Years Completed 05/10/2022, 11/17/2013 LUNG CANCER SCREENING - USE SMARTSET 51268 Completed 09/09/2023, 05/22/2023, 12/15/2022, Additional history exists [...] COPD, group D, by GOLD 2017 classification (HCC)- Primary documented in this encounter Advance Directives Latest [...] Name Relationship Healthcare Agent Relationship Communication Martinez MEGAN Adult Child First Alternate Health Care Agent Peter Bergeron Other - (no specific identity) First Alternate Health Care Agent Jazmine [place] Adult Child First Alternate Health Care Agent Care Teams Tutor Coordinator Relationship Specialty Start Date End Date Marcos Maurice PA-C [address] [facility] [place] [address] PCP - General Physician Magazine Hand 11/22/23 documented as of this encounter
--- OUTSIDE RECORDS SUMMARY | 2024-04-14 13:04 | External Medical Summary | Summary of Care ---
Author Name Unknown Organization [facility] Address [address] [place] [address] Phone [phone] Care Team Providers Care Nursing Program Chair Name Role Phone Marcos Maurice PA-C Primary Care Provide r Reason for Visit * Reason Onset Date Comments Sick 11/23/2023 Short of breath/ wheezing seen pcp yesterday. Advised to call pulmonary Encounter Details Date Type Department Care Team (Late st Contact Info) Description 11/23/2023 Telephone Pulmonary Medicine [facility] [address] [place] [phone] Marek Berger PA-C [address] [place] [address] Sick (Short of [...] MG Oral Tablet (Crestor)Indications: Cor pulmonale, chronic ([facility]),COPD, group D, by GOLD 2017 classification ([facility]),Hypertensive heart and kidney disease with chronic diastolic congestive heart failure and stage 3a chronic kidney disease ([facility]),Dyslipidemia,Es sential hypertension with goal blood [...] disease, without long-term current use of insulin ([facility]) Take 1 Tablet by mouth in the morning. 30 Tablet 11 11/22/2022 Active metFORMIN HCl 1000 MG Oral Tablet (Glucophage)Indicatio ns:Type 2 diabetes mellitus with stage 3a chronic kidney disease, without long-term current use of insulin ([facility]) Take 1 Tablet by mouth 2 times a day with morning and evening meals. 60 Tablet 5 11/22/2022 Active Azelastine HCl 0.1 % Nasal Solution (Astelin) Administer 1 [place] into nostril in the morning and 1 [place] before bedtime. 30 mL 12 01/12/2023 Active Gabapentin 600 MG Oral Tablet (Neurontin)Indication s:Generalized osteoarthritis Take 1 Tablet by mouth in the morning and 1 Tablet before bedtime. 180 Tablet 3 03/26/2023 Active Furosemide 80 MG Oral Tablet (Lasix)Indications:Ge neralized osteoarthritis,Chroni c diastolic heart failure ([facility]) Take 1 Tablet by mouth [...] s:COPD, group D, by GOLD 2017 classification ([facility]) Inhale 1 Vial via nebulizer [...] exacerbation of chronic obstructive pulmonary disease (COPD) ([facility]) Take 1 Capsule by mouth at bedtime. 90 Capsule 3 08/21/2023 Active Melatonin 3 MG Oral Tablet Take 1 Tablet by mouth at bedtime. 30 Tablet 1 09/17/2023 Active buPROPion HCl ER (XL) 300 MG Oral Tablet Extended Release 24 Hour (Wellbutrin XL)Indications:MDD (major depressive disorder), recurrent episode, mild ([facility]) Take 1 Tablet by mouth [...] - TRES o Class D - Inhaled Xnngajnsfuwjci-DWFX-IOVN Combination Inhaler (Trellegy) o PD-4 Inhibitor (Daliresp) [...] 04/21/2021 Last Assessment & Plan: Referral to [employer] for assistance in getting nicoderm patches covered [...] Last Assessment & Plan: Currently followed by facility practice specialist--not on any antihistamines currently, has follow [...] - TRES o Class D - Inhaled Wwyfpiezhvnqty-ZLSU-CQJO Combination Inhaler (Trellegy) o PD-4 Inhibitor (Daliresp) [...] (Moderna) 01/28/2021 Pneumococcal Conjugate Vacci ne, 20-valent ([id number]) 05/10/2022 Pneumococcal Polysaccharide PPV23 (Pneumovax) 11/17/2013 Seasonal [...] steroid for her mother, to [facility] in [place]. Please advise. documented in this encounter Plan of Treatment Upcoming Encounters Date Type Department Care Team (Late st Contact Info) Description 12/10/2023 3:00 PM EST Office Visit [facility] [place] [address] Andrea Mcclendon DO [address] [facility] [place] [address] 06/18/2024 7:40 AM EDT Office Visit [facility] [address] [facility] [place] [address] Piper Cazares DO [address] [facility] [place] [address] 07/14/2024 1:00 PM EDT PulmDiagnostic Pulmonary Function Lab, [address] [place] [address] [facility], Pulm Function [facility] [address] [facility] [place] [address] 07/14/2024 2:00 PM EDT PulmDiagnostic Pulmonary Function Lab, [facility] [address] [facility] [place] [address] [place], Pulm Function Room 2 [address] [facility] [place] [address] 07/23/2024 3:20 PM EDT Office Visit Pulmonary Medicine [place] [facility] [place] [address] [place] [phone] Chance Zimmerman MD [address] [place] [address] Health Maintenance Due Date Last Done Comments [...] Screening 02/20/2023 02/20/2022 COVID-19 Vaccine (2 - 24 season) 2023 01/28/2021 DXA Scan 2023 DTaP,Tdap,and Td Vaccines (2 - Td or Tdap) 11/17/2023 11/17/2013 HbA1c 03/10/2024 09/09/2023, 07/0 02/2023, 09/18/2022, Additional history exists GFR 05/18/2024 11/18/2023, 08/20, 09/12/2023, Additional history exists CKD PHOS USE SMARTSET 24117 09/12/202408/20, 05/21/2023, 07/27/2022, Additional history exists DISCUSS TOBACCO CESSATION (REFER TO SMARTSET #0204) 10/15/2024 10/15/2023, 05/31/2023, 01/12/2023, Additional history exists CKD HGB USE SMARTSET 91291 11/18/202411/18, 09/13/2023, 09/13/2023, Additional history exists O2 ASSESSMENT COMPLETED IN PAST YEAR FOR COPD 11/22/2024 11/22/2023 Lipid Panel 04/19/2027 04/19/2022, 12/21, 01/21/2021, Additional history exists Cervical Cancer Screening Discontinued Pap Smear Discontinued 10/10/2016, 10/21, 11/17/2013, Additional history exists Pneumococcal Vaccine: 65+ Years Completed 05/10/2022, 11/17/2013 LUNG CANCER SCREENING - USE SMARTSET 89085 Completed 09/09/2023, 05/22/2023, 12/15/2022, Additional history exists [...] First Alternate Health Care Agent Care Teams Nursing Program Chair Relationship Specialty Start Date End Date Marcos Maurice PA-C [facility] [place] [id number] PCP - General Physician Document Specialist 11/22/23 documented as of this encounter
--- OUTSIDE RECORDS SUMMARY | 2024-04-14 13:04 | External Medical Summary | Summary of Care ---
Author Name Unknown Organization [facility] Address [address] [place] [address] Phone [phone] Care Team Providers Care Four H Club Agent Name Role Phone Marcos Maurice PA-C Primary Care Provide r Reason for Visit * Reason Onset Date Comments Follow Up 12/10/2023 COPD Proven [facility] 90 day Encounter Details Date Type Department Care Team (Late st Contact Info) Description 12/10/2023 Telephone Pulmonary Function Lab, [address] [address] Debra Larsen, DIRECTOR OF CLINICAL SERVICES Follow Up (COPD Proven Care 90 day ) Allergies Active Allergy Reactions Criticality Noted [...] Tablet (Crestor)Indications: Cor pulmonale, chronic ([facility]),COPD, group D, by GOLD 2017 classification ([facility]),Hypertensive heart and kidney disease with chronic diastolic congestive heart failure and stage 3a chronic kidney disease ([facility]),Dyslipidemia,Es sential hypertension with goal blood [...] % Nasal Solution (Astelin) Administer 1 [place] into nostril in the morning and 1 [place] before bedtime. 30 mL 12 01/12/2023 Active [...] depressive disorder), recurrent episode, mild ([facility]) Take 1 Tablet by mouth in the morning. 90 Tablet 1 09/21/2023 Active Azithromycin 500 MG Oral Tablet (Zithromax) Take 1 Tablet by mouth once a day on Sunday, Sunday, and Sunday only. 13 Tablet 11 10/15/2023 Active Albuterol Sulfate HFA 108 (90 Base) MCG/ACT Inhalation Aerosol SolutionIndications:C OPD, severe ([facility]) Take 2 puffs every four [...] day") Medication Regimen o All Classes - TERS o Class D - Inhaled Oofyilljwmzqyj-LWGC-ABGU Combination Inhaler (Trellegy) o PD-4 Inhibitor (Daliresp) [...] oximeter to monitor SpO2, advised to contact [facility] if <90% and titrate as necessary, Tobacco use disorder 04/21/2021 Last Assessment & Plan: Referral to [employer] for assistance in getting nicoderm patches covered [...] Last Assessment & Plan: Currently followed by boat buffer [employer]--not on any antihistamines currently, has follow up [...] - TRES o Class D - Inhaled Eelwpdxchvhvil-AHJR-ISRU Combination Inhaler (Trellegy) o PD-4 Inhibitor (Daliresp) Self-Management plan o Prednisone 40mg daily for 5 days Rx o High frequency nebulizer treatments every 4-6 hours around the clock Exacerbation plan o Prednisone rescue kit Rescue kit given today. Educated on use. Must call [facility] when initiated so further assessment can be made documented as of this encounter (statuses as of 12/10/2023) Immunizations Name Administration Dates Next Due COVID-19 mRNA, LNP-s, No Pre serve, 2-Dose Series (Moderna) 01/28/2021 Pneumococcal Conjugate Vacci ne, 20-valent ([id number]) 05/10/2022 Pneumococcal Polysaccharide PPV23 (Pneumovax) 11/17/2013 Seasonal [...] Notes * Telephone Encounter - Debra Larsen, DIRECTOR OF CLINICAL SERVICES - 12/10/2023 11:08 AM EST 90 day Follow-Up Phone Call Patient Name: Edna Kebede Discharge Date: 09/13/23 Date of Call: 12/10/2023 Time of Call: 11:08 AM Patient successfully contacted? Yes - pt voices no increase in sob, cough or mucus. She has baseline cough with white sputum along with sob with exertion. Continues to use flutter valve. 02 sats run in the 90's on 3 lpm x 24 hours. Comorbid Conditions: CHF, PHTN, DM, obesity Exposures to irritants (mold, dust, debris, chemicals, pets, etc.): no Smokes: pt states that she is using nicotine patches and has not smoked Second-Hand Smoke Exposure: No Triggers: weather COVID-19 Screening Not indicated Readmission Screening Readmission within 30 days?: No Vaccine History Immunization History Administered Date(s) Administered COVID-19 mRNA, LNP-s, No Preserve, 2-Dose Series (Moderna) 01/28/2021 Pneumococcal Conjugate Vaccine, 20-valent ([id number]) 05/10/2022 Pneumococcal Polysaccharide PPV23 (Pneumovax) 11/17/2013 Seasonal Influenza, PF, 6 M & above, IM , (FluLaval or Fluzone) 11/20/2017, 09/10/2019 Seasonal Influenza, Quadrivalent Hd (Fluzone Hd) 09/13/2023 Seasonal Influenza, Quadrivalent, No Preserve, IM 10/10/2016 Seasonal Influenza, Split, IIV3, With Preserve, Inj 11/17/2013, 06/27/2014, 08/20/2015 TDAP (age 10 and older)(Boostrix) 11/17/2013 Follow-Up Next Pulmonary Appointment: 07/23/24 and Plans to attend Transportation Difficulty: No Followed by or Eligible for: [facility] home health - visits one day a week Medicated Therapy Respiratory Medications/Use: Trelegy- rinsing mouth, Albuterol neb, Albuterol MDI - using albuterolneb 3-4 hours Difficulty Affording Respiratory Medications: No Oxygen Use: 02 @ 3 lpm x 24 hours DME: Aureliano[facility]arina Noninvasive therapy: N/A Pt is not currently participating gin ME- she is still receiving HH @ this time. Advice given to patient: Pulmonary regimen reviewed with patient. Instructed patient to call the Pulmonary Clinic when starting to notice early onset of COPD flare symptoms. Encouraged staying active. Does patient need additional follow up? No Debra Larsen, SANDEEP documented in this encounter Plan of Treatment Upcoming Encounters Date Type Department Care Team (Late st Contact Info) Description 12/10/2023 3:00 PM EST Office Visit [facility] [place] [address] Andrea Mcclendon DO [place] [address] 06/18/2024 7:40 AM EDT Office Visit [facility] [place] [address] [facility] [place] [address] Piper Cazares DO [address] [facility] [place] [address] 07/14/2024 1:00 PM EDT PulmDiagnostic Pulmonary Function Lab, [address] [address] [facility], [facility] [address] [facility] [address] 07/14/2024 2:00 PM EDT [facility]ostic Pul[facility] Function [facility], [facility] [address] [facility] [address] [facility], [facility] [address] [facility] [address] 07/23/2024 3:20 PM EDT Office Visit Pulmonary Medicine [facility] [address] [place] [phone] Chance Zimmerman MD [address] [place] [address] Health Maintenance Due Date Last Done Comments [...] Additional history exists CKD PHOS USE SMARTSET 33329 09/12/202408/20, 05/21/2023, 07/27/2022, Additional history exists DISCUSS TOBACCO CESSATION (REFER TO SMARTSET #4800) 10/15/2024 10/15/2023, 05/31/2023, 01/12/2023, Additional history exists CKD HGB USE SMARTSET 57534 11/18/202411/18, 09/13/2023, 09/13/2023, Additional history exists O2 ASSESSMENT COMPLETED IN PAST YEAR FOR COPD 11/22/2024 11/22/2023 Lipid Panel 04/19/2027 04/19/2022, 12/21, 01/21/2021, Additional history exists Cervical Cancer Screening Discontinued Pap Smear Discontinued 10/10/2016, 10/21, 11/17/2013, Additional history exists Pneumococcal Vaccine: 65+ Years Completed 05/10/2022, 11/17/2013 LUNG CANCER SCREENING - USE SMARTSET 24733 Completed 09/09/2023, 05/22/2023, 12/15/2022, Additional history exists [...] Care Agent Jazmine Corona Adult Child [facility] Care Agent Care Teams Four H Club Agent Relationship Specialty Start Date End Date Marcos Maurice PA-C [address] [facility] [place] [address] PCP - General Physician Prefitter Doors 11/22/23 documented as of this encounter
--- OUTSIDE RECORDS SUMMARY | 2024-04-14 13:04 | External Medical Summary | Summary of Care ---
Author Name Unknown Organization [facility] Address [address] [place] [address] Phone [phone] Care Team Providers Care Blanket Winder Operator Name Role Phone Marcos Maurice PA-C Primary Care Provide r Reason for Visit * Reason Onset Date Comments Order Request 11/22/2023 Mammo Encounter Details Date Type Department Care Team (Late st Contact Info) Description 11/22/[address] [facility], [place] [address] [place] [address] Services, Scheduling [address] [place] [address] Order Request (Mammo) Allergies Active Allergy Reactions Criticality Noted Date [...] Tablet (Crestor)Indications: Cor pulmonale, chronic ([facility]),COPD, group D, by GOLD 2017 classification ([facility]),Hypertensive heart and kidney disease with chronic diastolic congestive heart failure and stage 3a chronic kidney disease ([facility]),Dyslipidemia,Es sential hypertension with goal blood pressure [...] 0.1 % Nasal Solution (Astelin) Administer 1 [place] into nostril in the morning and 1 [place] before bedtime. 30 mL 12 01/12/2023 Active [...] 06/21/2023 Active Eliquis 5 MG Oral TabletIndications:Per rxoanne history of DVT (deep vein thrombosis) take [...] pulmonary disease (COPD) ([facility]) Take 1 Capsule by mouth at bedtime. 90 Capsule 3 08/21/2023 Active Melatonin 3 MG Oral Tablet Take 1 Tablet by mouth at bedtime. 30 Tablet 1 09/17/2023 Active buPROPion HCl ER (XL) 300 MG Oral Tablet Extended Release 24 Hour (Wellbutrin XL)Indications:MDD (major depressive disorder), recurrent episode, mild ([facility]) Take 1 Tablet [...] or wheezing 18 g 3 11/22/2023 Active Hospital, Clinic, or Other Facility Administered [...] - TRES o Class D - Inhaled Kgiueawxeguith-NJHJ-SPJB Combination Inhaler (Trellegy) o PD-4 Inhibitor (Daliresp) [...] 04/21/2021 Last Assessment & Plan: Referral to [employer] for assistance in getting nicoderm patches covered [...] Last Assessment & Plan: Currently followed by salt operator--not on any antihistamines currently, has follow [...] Recent Labs Units 10/03/22 1356 09/17/22201709/17/22 1416 04/17/227 03/09/22 1355 LEFT VENTRICULAR EJECTION FRACTION % [...] - TRES o Class D - Inhaled Tuegrzdumzmbbc-WYBW-CLOG Combination Inhaler (Trellegy) o PD-4 Inhibitor (Daliresp) Self-Management plan o Prednisone 40mg daily for 5 days Rx o High frequency nebulizer treatments every 4-6 hours around the clock Exacerbation plan o Prednisone rescue kit Rescue kit given today. Educated on use. Must call [facility] when initiated so further assessment can be made documented as of this encounter (statuses as of 11/23/2023) Immunizations Name Administration Dates Next Due COVID-19 mRNA, LNP-s, No Pre serve, 2-Dose Series (Moderna) 01/28/2021 Pneumococcal Conjugate Vacci ne, 20-valent ([id number]) 05/10/2022 Pneumococcal Polysaccharide PPV23 (Pneumovax) 11/17/2013 Seasonal [...] encounter Miscellaneous Notes * Telephone Encounter - Hui Kauffman OSA - 11/22/2023 5:14 PM EST Pt would like to get a mammogram done. Please place the order. Thank you [facility] Scheduling Services documented in this encounter Plan of Treatment Upcoming Encounters Date Type Department Care Team (Late st Contact Info) Description 12/10/2023 3:00 PM EST Office Visit [facility], [place] [address] [facility] [place] [address] Andrea Mcclendon DO [address] [place] [address] 06/18/2024 7:40 AM EDT Office Visit [facility], [place] [address] [place] [address] Piper Cazares DO [address] [place] [address] 07/14/2024 1:00 PM EDT PulmDiagnostic Pulmonary Function Lab, [facility] [address] [place] [address] [place], Pulm Function Room 1 [address] [place] [address] 07/14/2024 2:00 PM EDT PulmDiagnostic Pulmonary Function Lab, [facility] [address] [place] [address] [facility], Pulm Function Room 2 [address] [place] [address] 07/23/2024 3:20 PM EDT Office Visit Pulmonary Medicine [place] [address] [place] [phone] Chance Zimmerman MD [address] [place] [address] Health Maintenance Due Date Last Done Comments [...] Additional history exists CKD PHOS USE SMARTSET 79159 09/12/202408/20, 05/21/2023, 07/27/2022, Additional history exists DISCUSS TOBACCO CESSATION (REFER TO SMARTSET #3291) 10/15/2024 10/15/2023, 05/31/2023, 01/12/2023, Additional history exists CKD HGB USE SMARTSET 73417 11/18/202411/18, 09/13/2023, 09/13/2023, Additional history exists O2 ASSESSMENT COMPLETED IN PAST YEAR FOR COPD 11/22/2024 11/22/2023 Lipid Panel 04/19/2027 04/19/2022, 12/21, 01/21/2021, Additional history exists Cervical Cancer Screening Discontinued Pap Smear Discontinued 10/10/2016, 10/21, 11/17/2013, Additional history exists Pneumococcal Vaccine: 65+ Years Completed 05/10/2022, 11/17/2013 LUNG CANCER SCREENING - USE SMARTSET 95384 Completed 09/09/2023, 05/22/2023, 12/15/2022, Additional history exists [...] First Alternate Health Care Agent Care Teams Blanket Winder Operator Relationship Specialty Start Date End Date Marcos Maurice PA-C [address] [facility] [place] [address] PCP - General Physician Care Director 11/22/23 documented as of this encounter
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
--- OUTSIDE RECORDS SUMMARY | 2024-04-14 13:04 | External Medical Summary | Summary of Care ---
Author Name Unknown Organization [facility] Address [address] [place] [address] Phone [phone] Care Team Providers Care Dispatcher Refinery Name Role Phone Cydney Lopez Primary Care Provider [phone] Encounter Details Date Type Department Care Team (Late st Contact Info) Description 11/21/2023 Orders Only Family Practice [address] [place] [address] Piper Cazares DO [address] [place] [address] Allergies Active Allergy Reactions Criticality Noted [...] MG Oral Tablet (Crestor)Indications: Cor pulmonale, chronic ([facility]),COPD, group D, by GOLD 2017 classification ([facility]),Hypertensive heart and kidney disease with chronic diastolic congestive heart failure and stage 3a chronic kidney disease ([facility]),Dyslipidemia,Es sential hypertension with goal blood pressure less [...] 0.1 % Nasal Solution (Astelin) Administer 1 Leupp into nostril in the morning and 1 Leupp before bedtime. 30 mL 12 01/12/2023 Active [...] s:COPD, group D, by GOLD 2017 classification ([facility]) [...] XL)Indications:MDD (major depressive disorder), recurrent episode, mild ([facility]) Take 1 Tablet by mouth in [...] - TRES o Class D - Inhaled Kloqsezytixvbx-IFYL-DFIY Combination Inhaler (Trellegy) o PD-4 Inhibitor (Daliresp) [...] 04/21/2021 Last Assessment & Plan: Referral to [facility] for assistance in getting nicoderm patches covered [...] Last Assessment & Plan: Currently followed by nursing clinical director--not on any antihistamines currently, has follow [...] - TRES o Class D - Inhaled Rvzxljkhuoouyx-ARYW-REJC Combination Inhaler (Trellegy) o PD-4 Inhibitor (Daliresp) [...] (Moderna) 01/28/2021 Pneumococcal Conjugate Vacci ne, 20-valent ([id number]) 05/10/2022 Pneumococcal Polysaccharide PPV23 (Pneumovax) 11/17/2013 Seasonal [...] 12:00 PM EST Office Visit Family Practice [address] [place] [address] Marcos Maurice PA-C [address] [place] [address] 12/10/2023 3:00 PM EST Office Visit Ophthalmology, [address] [address] Andrea Mcclendon DO [address] [address] 07/14/2024 1:00 PM EDT PulmDiagnostic Pulmonary Function Lab Pratibha Anguiano [address] [address] [address], [address] [place] [address] Health Maintenance Due Date Last Done Comments [...] Additional history exists CKD PHOS USE SMARTSET 06513 09/12/202408/20, 05/21/2023, 07/27/2022, Additional history exists DISCUSS TOBACCO CESSATION (REFER TO SMARTSET #3291) 10/15/2024 10/15/2023, 05/31/2023, 01/12/2023, Additional history exists O2 ASSESSMENT COMPLETED IN PAST YEAR FOR COPD 10/15/2024 10/15/2023 CKD HGB USE SMARTSET 52841 11/18/202411/18, 09/13/2023, 09/13/2023, Additional history exists Lipid Panel 04/19/2027 04/19/2022, 12/21, 01/21/2021, Additional history exists Cervical Cancer Screening Discontinued Pap Smear Discontinued 10/10/2016, 10/21, 11/17/2013, Additional history exists Pneumococcal Vaccine: 65+ Years Completed 05/10/2022, 11/17/2013 LUNG CANCER SCREENING - USE SMARTSET 53979 Completed 09/09/2023, 05/22/2023, 12/15/2022, Additional history exists [...] Procedure Name Priority Date/Time Associated Diagnosis Comments OUTSIDE LAB-CORONAVIRUS (COVID-19) Routine 11/18/2023 CHEMISTRY-OUTSIDE Routine 11/18/2023 documented in this encounter Results * OUTSIDE LAB-CORONAVIRUS (COVID-19) (11/18/2023) [id number] E LAB NOT DETECTED OUTSIDE LAB (SEE SCANNED REPORT) 11/18/2023 History Per Patient LABORATORY OUTSIDE LAB (SEE SCANNED REPORT) * (ABNORMAL) CHEMISTRY-OUTSIDE (11/18/2023) Not all results display below - see scan for full detail OUTSIDE LAB (SEE SCANNED REPORT) Comment:SCAN INCL: ED LABS: TROP,LACTIC,INF A/B,CBCD,PT, INR, PTT,CMP,PROBNP, MAG CREATININE-OUTSID E LAB 0.90 0.40 - 1.50 MG/DL OUTSIDE LAB (SEE SCANNED REPORT) EGFR-OUTSIDE LAB 71 OUT SIDE LAB (SEE SCANNED REPORT) POTASSIUM-OUTSIDE LAB 3.5(A) 3.6 - 5.0 MMOL/L OUTSIDE LAB (SEE SCANNED REPORT) GLUCOSE-OUTSIDE LAB 183(A) 65 - 110 MG/DL OUTSIDE LAB (SEE SCANNED REPORT) HOURS FASTING OUTSID E LAB (SEE SCANNED REPORT) TRIGLYCERIDES-OUT SIDE LAB OUTSIDE LAB (SEE SCANNED REPORT) CHOLESTEROL-OUTSI DE LAB OUTSIDE LAB (SEE SCANNED REPORT) HDL-OUTSIDE LAB OUTS [place] [facility] (SEE SCANNED REPORT) CHOL/HDL RATIO-OUTSIDE LAB OUTSIDE [place] B (SEE SCANNED REPORT) LDL (CALCULATED)-OUTS [place] [facility] OUTSIDE LAB (SEE SCANNED REPORT) LDL (DIRECT MEASURE)-OUTSIDE LAB OUTSIDE LAB (SEE SCANNED REPORT) HEMOGLOBIN, I7R-[id number] LAB OUTSIDE LAB (SEE SCANNED REPORT) PHOSPHORUS-OUTSID E LAB OUTSIDE LAB (SEE SCANNED REPORT) PTH-OUTSIDE LAB OUTS [place] (SEE SCANNED REPORT) MICROALBUMIN RATIO-OUTSIDE LAB OUTSIDE [place] B (SEE SCANNED REPORT) PROTEIN, UA-OUTSIDE LAB OUTSIDE LAB (SEE SCANNED REPORT) HEMOGLOBIN-OUTSID E LAB 10.6(A) 12.0 - 16.0 GM/DL OUTSIDE LAB (SEE SCANNED REPORT) 11/18/2023 History Per Patient LABORATORY OUTSIDE LAB (SEE SCANNED REPORT) documented in this encounter Advance Directives Latest [...] First Alternate Health Care Agent Care Teams Dispatcher Refinery Relationship Specialty Start Date End Date Cydney Lopez DO PCP - General Family Medicine 07/26/22 documented as of this encounter
--- OUTSIDE RECORDS SUMMARY | 2024-04-14 13:04 | External Medical Summary | Summary of Care ---
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 Name Role Phone Marcos Maurice PA-C Primary Care Provide r Reason for Referral * Evaluate & Treat - Unlimited Visits (Within 10 days (routine)) - Pending Review Specialty Diagnoses / Procedures Referred By Frantz herrera Referred To Contact Psychiatry Diagnoses MDD (major depressive disorder), recurrent episode, moderate (HCC) Marcos Maurice PA-C [address] [place] [address] Referral ID Status Reason Start Date Expiration Date Visits Requested Visits Authorized [id number] Pending Review Specialty Services Required 11/22/[phone] Question Answer Referral Priority Within 10 days (routine) Where should this appointment be scheduled? [facility] Is this referral for medication management? Yes Referral To [facility] Reason for Referral Depression Comments Telehealth if sooner available. Reason for Visit * Reason Comments Hospital Follow-Up [facility] ER for SOB. Still having issues with SOB on exertion. Was recommended to talk to PCP on increasing strength of nebulizer treatments. Would also like to increase depression medication, has been able to go 6 days without smoking. Encounter Details Date Type Department Care Team ([facility] st Contact Info) Description 11/22/2023 12:00 PM EST Office Visit Family [facility] [address] [address] [address] Marcos Maurice PA-C [address] [place] [address] COPD, severe ([facility])*; Chronic respiratory failure with hypoxia and hypercapnia (HCC); Pulmonary HTN ([facility]); Chronic heart failure with preserved ejection fraction ([facility]); Type 2 diabetes mellitus with stage 3a chronic kidney disease, without long-term current use of insulin (HCC); Hypertensive heart and kidney disease with chronic diastolic congestive heart failure and stage 3a chronic kidney disease ([facility]); Bilateral lower extremity edema; MDD (major depressive disorder), recurrent episode, moderate ([facility]); Tobacco use disorder Allergies Active Allergy [...] group D, by GOLD 2017 classification ([facility]),Chronic hypoxemic respiratory failure ([facility]) 2 LPM at bedtime & [...] Oral Tablet (Crestor)Indication s:Cor pulmonale, chronic ([facility]),COPD, group D, by GOLD 2017 classification ([facility]),Hypertensive heart and kidney disease with chronic diastolic congestive heart failure and stage 3a chronic kidney disease ([facility]),Dyslipidemia, Essential hypertension with goal blood [...] without long-term current use of insulin ([facility]) Take 1 Tablet by mouth in the morning. 30 Tablet 11 11/22/2022 Active metFORMIN HCl 1000 MG Oral Tablet (Glucophage)Indicat ions:Type 2 diabetes mellitus with stage 3a chronic kidney disease, without long-term current use of insulin ([facility]) Take 1 Tablet by mouth 2 times a day with morning and evening meals. 60 Tablet 5 11/22/2022 Active Azelastine HCl 0.1 % Nasal Solution (Astelin) Administer 1 [place] into nostril in the morning and 1 [place] before bedtime. 30 mL 12 01/12/2023 Active Gabapentin 600 MG Oral Tablet (Neurontin)Indicati ons:Generalized osteoarthritis Take 1 Tablet by mouth in the morning and 1 Tablet before bedtime. 180 Tablet 3 03/26/2023 Active Furosemide 80 MG Oral Tablet (Lasix)Indications: Generalized osteoarthritis,Progress Developer kunal diastolic heart failure ([facility]) Take 1 Tablet by mouth [...] group D, by GOLD 2017 classification ([facility]) Inhale 1 Vial via nebulizer [...] of chronic obstructive pulmonary disease (COPD) ([facility]) Take 1 Capsule by mouth at bedtime. 90 Capsule 3 08/21/2023 Active Melatonin 3 MG Oral Tablet Take 1 Tablet by mouth at bedtime. 30 Tablet 1 09/17/2023 Active buPROPion HCl ER (XL) 300 MG Oral Tablet Extended Release 24 Hour (Wellbutrin XL)Indications:MDD (major depressive disorder), recurrent episode, mild ([facility]) Take 1 Tablet by mouth in the morning. 90 Tablet 1 09/21/2023 Active Azithromycin 500 MG Oral Tablet (Zithromax) Take 1 Tablet by mouth once a day on Sunday, Sunday, and Sunday only. 13 Tablet 11 10/15/2023 Active Albuterol Sulfate HFA 108 (90 Base) MCG/ACT Inhalation Aerosol SolutionIndications :COPD, severe ([facility]) Take 2 puffs every four hours as need for shortness of breath or wheezing 18 g 3 11/22/2023 Active Albuterol Sulfate HFA 108 (90 Base) MCG/ACT Inhalation Aerosol Solution Take 2 puffs every four hours as need for shortness of breath or wheezing 18 g 3 05/31/2023 4 Discontinue d(Refill) predniSONE 20 MG Oral Tablet (Deltasone) 40 mg x 5 days, then 20 mg daily x 5 days every morning with food as instructed. 15 Tablet 1 10/15/2023 4 Discontinue d(End of Procedure) Hospital, Clinic, or Other Facility [...] - TRES o Class D - Inhaled Qlptvscjphwwnk-PANM-OVJK Combination Inhaler (Trellegy) o PD-4 Inhibitor (Daliresp) [...] oximeter to monitor SpO2, advised to contact [facility] if <90% and titrate as necessary, Tobacco use disorder 04/21/2021 Last Assessment & Plan: Referral to [employer] for assistance in getting nicoderm patches covered [...] Last Assessment & Plan: Currently followed by side gluer--not on any antihistamines currently, has follow up [...] - TRES o Class D - Inhaled Hmzaudvqtaygrg-EOHY-QFOX Combination Inhaler (Trellegy) o PD-4 Inhibitor (Daliresp) Self-Management plan o Prednisone 40mg daily for 5 days Rx o High frequency nebulizer treatments every 4-6 hours around the clock Exacerbation plan o Prednisone rescue kit Rescue kit given today. Educated on use. Must call [facility] when initiated so further assessment can be made documented as of this encounter (statuses as of 11/23/2023) Immunizations Name Administration Dates Next Due COVID-19 mRNA, LNP-s, No Pre serve, 2-Dose Series (Moderna) 01/28/2021 Pneumococcal Conjugate Vacci ne, 20-valent ([id number]) 05/10/2022 Pneumococcal Polysaccharide PPV23 (Pneumovax) 11/17/2013 Seasonal [...] uit: Not Asked; Counseling Given: Not Answered Comments:01/12/23 currently smoking 2 cig/day 05/31/2023 1 [...] Sign Reading Time Taken Comments Blood Pressure 122/64 11/22/2023 12:16 PM EST Pulse 89 11/22/2023 12:16 PM EST Temperature 36.6 C (97.9 F) 11/22/2023 12:[address] Respiratory Rate 18 11/22/2023 12:16 PM EST Oxygen Saturation 97% 11/22/2023 12:16 PM EST 4 LPM Inhaled Oxygen Concentration - - Weight 89.4 kg (197 lb 3.2 oz) 11/22/2023 12:16 PM EST Height 170.2 cm (5' 7") 11/22/2023 12:16 PM EST Body Mass Index 30.89 11/22/2023 12:16 PM EST documented in this encounter Functional [...] as of this encounter Progress Notes * Marcos Maurice PA-C - 11/22/2023 12:30 PM EST Images from the original note were not included. History of Present Illness Edna Kebede is a 63 year old female that presents for ED follow-up. COPD exacerbation. She has had multiple ED visits over the past year for this. Patient was evaluated at the [facility] ED on 11/18/2023 for worsening shortness of breath that has been going on the entire preceding night. She has a history of COPD and CHF. She is typically on 3-4 L of home oxygen. Shortness of breath had worse in the preceding night, and she also developed a productive cough. She had some wheezing. She denied any fever or chills. Had some chest soreness from the coughing. She was treated with DuoNeb and IV steroids. She responded very well and quickly to this. This was felt to be related to a COPD exacerbation. Discharged home with instructions to follow up with us. States she has been off cigarettes for about 6 days now. She is using patches. Congratulated her onthis! Currently does report feeling better, but doesn't feel breathing is back to baseline. Denies fever,chills, cough, lightheadedness, abd pain, N/V/D/C. Needs sooner f/u visit with pulm. She last saw pulmonary on 10/15/2023. At that time, she still seemed to have significant chronic bronchitis despite compliance with Daliresp. She was started on Zithromax 3 times weekly. She reportedcompliance with her diuretic at that time. She was also found to have a COPD exacerbation then, andwas treated with a prednisone taper. Last saw Cardiology on 10/10/2023. No changes made. She was encouraged to continue on furosemide and to check weight daily. Continues to report significant depression. At last office visit on 09/21/2023, her Wellbutrin was increased to 300 mg daily, however she is not sure if she ever started this higher dose. She reportscompliance with Lexapro 20 mg daily and trazodone 100 mg at night. Denies suicidality, anhedonia, guilt. Still reports significant energy loss, trouble concentrating, diet fluctuations, and sleep issues. Declines counseling. Will refer to psych at this point. Patient Active Problem List Diagnosis Code DJD (degenerative joint disease), cervical M47.812 Generalized osteoarthritis M15.9 Vitamin D deficiency E55.9 MARCIE (generalized anxiety disorder) F41.1 Gastroesophageal reflux disease without esophagitis K21.9 Recurrent major depressive disorder, in partial remission ([facility]) F33.41 Essential hypertension with goal blood pressure less than 140/90 I10 Migraine without aura and without status migrainosus, not intractable G43.009 Chronic seasonal allergic rhinitis due to pollen J30.1 Dyslipidemia E78.5 Lumbar degenerative disc disease M51.36 Chronic diastolic heart failure ([facility]) I50.32 Chronic hypoxemic respiratory failure ([facility]) J96.11 Tobacco use disorder F17.200 Pulmonary hypertension ([facility]) I27.20 Insomnia G47.00 Personal history of DVT (deep vein thrombosis) Z86.718 Personal history of pulmonary embolism Z86.711 Cor pulmonale, chronic ([facility]) I27.81 Type 2 diabetes mellitus with stage 3a chronic kidney disease, without long-term current use of insulin ([facility]) E11.22, N18.31 Centrilobular emphysema ([facility]) J43.2 Bilateral lower extremity edema R60.0 COPD, group D, by GOLD 2017 classification ([facility]) J44.9 Chronic respiratory failure with hypoxia and hypercapnia ([facility]) J96.11, J96.12 Review of patient's allergies indicates: Allergen Reactions [...] Sprays in the morning. 15.8 mL 2 Roflumilast 500 MCG Oral Tablet (Daliresp) Take by mouth 1 Tablet in the morning. 30 Tablet 5 rOPINIRole HCl 2 MG Oral Tablet (Requip) Take by mouth 1 Tablet in the morning AND 1 Tablet before bedtime. 60 Tablet 5 Rosuvastatin Calcium 20 MG Oral Tablet (Crestor) Take by mouth 1 Tablet in the morning. 90 Tablet 3 traZODone HCl 100 MG Oral Tablet (Desyrel) Take by mouth 1 Tablet before bedtime. 30 Tablet 5 Empagliflozin 10 MG Oral Tablet (Jardiance) Take 1 Tablet by mouth in the morning. 30 Tablet 11 metFORMIN HCl 1000 MG Oral Tablet (Glucophage) Take 1 Tablet by mouth 2 times a day with morning and evening meals. 60 Tablet 5 Azelastine HCl 0.1 % Nasal Solution (Astelin) Administer 1 [place] into nostril in the morning and 1 [place] before bedtime. 30 mL 12 Gabapentin 600 MG Oral Tablet (Neurontin) Take 1 Tablet by mouth in the morning and 1 Tablet beforebedtime. 180 Tablet 3 Furosemide 80 MG Oral Tablet (Lasix) Take 1 Tablet by mouth in the morning and 1 Tablet before bedtime. 180 Tablet 3 Potassium Chloride 20 MEQ Oral Packet Take 20 mEq by mouth in the morning. 30 Packet 5 Trelegy Ellipta 100-62.5-25 MCG/ACT Aerosol Powder Breath Activated (Etmhsceuabf-Zytxcdlawduh-Yvimxjdyaw) Inhale 1 Puff by mouth in the morning. 60 Each 6 Vitamin D3 50 MCG (1999 UT) Oral Capsule Take 1 Capsule by mouth in the morning. 90 Capsule 1 Eliquis 5 MG Oral Tablet take 1 tablet by mouth every morning and at bedtime 60 Tablet 3 Albuterol Sulfate (2.5 MG/3ML) 0.083% Inhalation Nebulization Solution (Proventil) Inhale 1 Vial via nebulizer every 4 hours as needed for Wheezing or Shortness of Breath. 180 mL 11 Escitalopram Oxalate 20 MG Oral Tablet (Lexapro) Take 1 Tablet by mouth in the [...] mouth in the morning. 90 Tablet 1 Azithromycin 500 MG Oral Tablet (Zithromax) Take 1 Tablet by mouth once a day on Sunday, Sunday,and Sunday only. 13 Tablet 11 Albuterol Sulfate HFA 108 (90 Base) MCG/ACT Inhalation Aerosol Solution Take 2 puffs every four hours as need for shortness of breath or wheezing 18 g 3 Current Facility-Administered Medications Medication Dose Route Frequency Provider Last Rate Last Admin Albuterol Sulfate (Proventil) (2.5 MG/3ML) 0.083% inhalation solution 2.5 mg 2.5 mg Nebulizer PRN Chance Zimmerman MD Albuterol Sulfate (Proventil) (2.5 MG/3ML) 0.083% inhalation solution 2.5 mg 2.5 mg Nebulizer PRN Chance Zimmerman MD 2.5 mg at 10/16/23 0818 Albuterol Sulfate (Proventil) (5 MG/ML) 0.5% *conc* inhalation solution 2.5 mg 2.5 mg Nebulizer Chance Larson MD Past Medical History: Diagnosis Date Acute deep vein thrombosis (DVT) of right peroneal vein ([facility]) 09/26/2021 02/28/14 Pulmonary note. (Z86.718) History of DVT (deep vein thrombosis) Right peroneal DVT seen on duplex on 09/15/21. Multiple PEs and hospitalized from 09/14/21 to 09/21/21. Provoked? 6 months, still on blood thinners? Acute pulmonary embolism without acute cor pulmonale ([facility]) 12/02/2021 02/28/22 Pulmonary note Pt hospitalized from 09/14/21 to 09/21/21 with bilateral subsegmental PE, 1stunprovoked PE Allergic rhinitis 11/17/2013 Anxiety 11/17/2013 B12 deficiency 11/17/2013 Benzodiazepine abuse, episodic ([facility]) 05/21/2018 Chronic diastolic heart failure ([facility]) 02/28/2021 Chronic hypoxemic respiratory failure ([facility]) 04/21/2021 Chronic sinusitis 07/22/2014 COPD (chronic obstructive pulmonary disease) ([facility]) COPD, group D, by GOLD 2017 classification ([facility]) 03/29/2020 Nearing end-stage Per COPD GOLD Classification COPD, severity to be determined ([facility]) 11/17/2013 Cor pulmonale, chronic ([facility]) 03/08/2022 Depression 11/17/2013 DJD (degenerative joint [...] and stage 3a chronic kidney disease (HCC) 2023-11-22 Adding I13.0, I50.32, N18.31-Hypertensive heart and [...] performed by Fawn Vee MD at [facility] INJECT DX/THER SUBSTANCE INTERLAMINAR LUMBAR/SACRAL W IMAGE GUIDE N/A 09/17/2020 INJECTION SPINE LUMBAR OR SACRAL performed by Katie Plunkett MD at OR [facility] LIGATE/CUT OVIDUCT(S) LUMBAR / SACRAL EPIDURAL, ADD'L LEVEL Right 10/06/2019 INJECTION TRANSFORAMINAL EPIDURAL LUMBAR OR SACRAL ADDITIONAL performed by Fawn Vee MD at [facility] LUMBAR / SACRAL EPIDURAL, SINGLE LEVEL Right 10/06/2019 INJECTION TRANSFORAMINAL EPIDURAL LUMBAR OR SACRAL performed by Fawn Vee MD at OR [facility] REMOVE GALLBLADDER 2011 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 Negative for chills and fever. HENT: Negative. Eyes: Negative. Respiratory: Positive for cough, shortness of breath and wheezing. Cardiovascular: Negative. Negative for chest pain, palpitations and leg swelling. Gastrointestinal: Negative. Negative for abdominal pain, blood in stool, constipation, diarrhea, nausea and vomiting. Endocrine: Negative. Genitourinary: Negative. Musculoskeletal: Negative. Skin: Negative. Negative for rash. Allergic/Immunologic: Negative. Neurological: Negative. Hematological: Negative. Psychiatric/Behavioral: Positive for dysphoric mood. Negative for self-injury and suicidal ideas. The patient is nervous/anxious. All other systems reviewed and are negative. Physical Exam BP 122/64 | Pulse 89 | Temp 36.6 C (97.9 F) | Resp 18 | Ht 1.702 m (5' 7") | Wt 89.4 kg (197 lb3.2 oz) | SpO2 97% Comment: 4 LPM | BMI 30.89 kg/m | BSA 2.06 m Physical Exam Vitals and nursing note [...] heard. Pulmonary: Effort: Pulmonary effort is normal. Comments: Severely diminished breath sounds in all lung mai Abdominal: General: Abdomen is flat. Bowel sounds are normal. Palpations: Abdomen is soft. Tenderness: There is no abdominal tenderness. There is no guarding or rebound. Musculoskeletal: General: Normal range of motion. Cervical back: Normal range of motion and neck supple. Right lower leg: No edema. Left lower leg: No edema. Skin: General: Skin is warm. Neurological: General: No focal deficit present. Mental Status: She is alert and oriented to person, place, and time. Psychiatric: Mood and Affect: Mood normal. Behavior: Behavior normal. Thought Content: Thought content normal. Judgment: Judgment normal. I have reviewed most recent labs BMP results Recent Labs Units 11/18/23 0000 09/13/23 0412 09/12/23 0528 09/10/23 0729 SODIUM - [facility] mmol/L -- 140 141 144 POTASSIUM - [facility] mmol/L -- 4.0 3.9 5.3* POTASSIUM-OUTSIDE LAB MMOL/L 3.5* -- -- -- CHLORIDE - [facility] mmol/L -- 94* 96* 102 CO2 - [facility] mmol/L -- 35* 36* 33* CREATININE - [facility] mg/dL -- 1.1* 1.1* 0.9 CREATININE-OUTSIDE LAB MG/DL 0.90 -- -- -- BUN - [facility] mg/dL -- 28* 34* 38* Lipid panel results Recent Labs Units 04/19/22 0408 01/13/22 1500 CHOLESTEROL - [facility] mg/dL 283* 282* LDL CHOLESTEROL (CALCULATED) - [facility] mg/dL 190* 162* HDL CHOLESTEROL - [facility] mg/dL 57 52 TRIGLYCERIDES - [facility] mg/dL 181* 342* CBC results Recent Labs Units 11/18/23 0000 09/13/23 0412 09/12/23 0528 09/10/23 0729 WBC AUTO - [facility] K/uL -- 10.48 10.31 13.26* HGB - [facility] g/dL -- 11.2* 11.4* 11.4* HEMOGLOBIN-OUTSIDE LAB GM/DL 10.6* -- -- -- HCT - [facility] % -- 37.8 38.2 37.9 PLATELET AUTO - [facility] K/uL -- 287 292 339 HbA1c results Recent Labs Units 09/09/23 0643 05/22/23 0358 09/18/22 0526 HEMOGLOBIN A1C - [facility] % 7.5* 6.5* 7.3* TSH results Recent Labs Units 01/13/22 1500 TSH - [facility] uIU/mL 3.08 | 3.00 Vitamin D results Recent Labs Units 01/13/22 1500 25-HYDROXY VITAMIN D - [facility] ng/mL 16* Hepatic panel results Recent Labs Units 09/08/23 1207 05/22/23 0359 05/21/23 1425 PROTEIN - [facility] g/dL 6.1 6.4 6.2 BILIRUBIN, TOTAL - [facility] mg/dL 0.2 0.2 0.2 ALKALINE PHOSPHATASE - [facility] U/L 74 84 79 AST - [facility] U/L 18 14 13 ALT - [facility] U/L 19 6* <5* Protein/cr ratio results No results for input(s): "PROCRRATIO" in the last 21034 hours. Assessment and Plan COPD, severe (HCC) She is again asking for more steroids. I again told her that she must follow with her pulmonologistafter these exacerbations. We will try to reach out to them to schedule. - Albuterol Sulfate HFA 108 (90 Base) MCG/ACT Inhalation Aerosol Solution; Take 2 puffs every four hours as need for shortness of breath or wheezing - HEMOGLOBIN A1C; Future - BASIC METABOLIC PANEL; Future - LIPID PANEL WITH DIRECT LDL IF TG IS HIGH; Future - TSH WITH FREE T4 IF INDICATED; Future Chronic respiratory failure with hypoxia and hypercapnia (HCC) - HEMOGLOBIN A1C; Future - BASIC METABOLIC PANEL; Future - LIPID PANEL WITH DIRECT LDL IF TG IS HIGH; Future - TSH WITH FREE T4 IF INDICATED; Future Pulmonary HTN (HCC) - HEMOGLOBIN A1C; Future - BASIC METABOLIC PANEL; Future - LIPID PANEL WITH DIRECT LDL IF TG IS HIGH; Future - TSH WITH FREE T4 IF INDICATED; Future Chronic heart failure with preserved ejection fraction (HCC) Appears euvolemic today. - HEMOGLOBIN A1C; Future - BASIC METABOLIC PANEL; Future - LIPID PANEL WITH DIRECT LDL IF TG IS HIGH; Future - TSH WITH FREE T4 IF INDICATED; Future Type 2 diabetes mellitus with stage 3a chronic kidney disease, without long-term current use of insulin (HCC) - HEMOGLOBIN A1C; Future - BASIC METABOLIC PANEL; Future - LIPID PANEL WITH DIRECT LDL IF TG IS HIGH; Future - TSH WITH FREE T4 IF INDICATED; Future Hypertensive heart and kidney disease with chronic diastolic congestive heart failure and stage 3a chronic kidney disease (HCC) Blood pressure currently stable. - HEMOGLOBIN A1C; Future - BASIC METABOLIC PANEL; Future - LIPID PANEL WITH DIRECT LDL IF TG IS HIGH; Future - TSH WITH FREE T4 IF INDICATED; Future Bilateral lower extremity edema Currently minimal. - HEMOGLOBIN A1C; Future - BASIC METABOLIC PANEL; Future - LIPID PANEL WITH DIRECT LDL IF TG IS HIGH; Future - TSH WITH FREE T4 IF INDICATED; Future MDD (major depressive disorder), recurrent episode, moderate (HCC) She is unsure if she ever increase the dose of Wellbutrin to 300 mg. She will check and then let usknow. Will otherwise refer to psych at this point. Declines counseling. - ADULT/PEDS PSYCHIATRY REFERRAL OP - HEMOGLOBIN A1C; Future - BASIC METABOLIC PANEL; Future - LIPID PANEL WITH DIRECT LDL IF TG IS HIGH; Future - TSH WITH FREE T4 IF INDICATED; Future Tobacco use disorder She has been off cigarettes for 6 days, using patches with success. Wrap-Up Follow Up: Return in about 3 months (around 02/21/2024), or if symptoms worsen or fail to improve, for Return with Physician. | For: Return with Physician | Check-out note: Please ensure she has soonerf/u appt with pulm. Time: I spent a total of 20-29 minutes (exact time 20 mins) on the date of service in preparation, delivery, and documentation of the care provided to Edna Kebede excluding any time spent in the performance of separately billed services. documented in this encounter Nursing Notes * Paris Gutierrez LPN - 11/22/2023 12:19 PM EST Chief Complaint Patient presents with Hospital Follow-Up [facility] ER 11/18 for SOB. Still having issues with SOB on exertion. Was recommended to talkto PCP on increasing strength of nebulizer treatments. Would also like to increase depression medication, has been able to go 6 days without smoking. documented in this encounter Plan of Treatment Upcoming Encounters Date Type Department Care Team (Late st Contact Info) Description 12/10/2023 3:00 PM EST Office Visit Ophthalmology, [place] [id number] Andrea Mcclendon [place] [address] 06/18/2024 7:40 AM EDT Office Visit Family Practice [place] [place] [address] Piper Cazares DO [address] [place] [address] 07/14/2024 1:00 PM EDT [facility]ostic Pul[facility] Function Lab, [address] [facility] [address] [place], Pulm Function Room 1 [address] [facility] [place] [address] 07/14/2024 2:00 PM EDT [facility] Pul[facility] Function Lab, [facility] [address] [facility] [address] [facility], Pulm Function Room 2 [address] [facility] [place] [address] 07/23/2024 3:20 PM EDT [facility] [address] [place] [phone] Chance Zimmerman [facility] [address] [facility] [address] Scheduled Orders Name Type Priority Associated Diagnoses Orde r Schedule HEMOGLOBIN A1C Lab Routine COPD, severe (HCC) Pulmonary HTN (HCC) Type 2 diabetes mellitus with stage 3a chronic kidney disease, without long-term current use of insulin (HCC) Chronic respiratory failure with hypoxia and hypercapnia (HCC) Chronic heart failure with preserved ejection fraction (HCC) MDD (major depressive disorder), recurrent episode, moderate (HCC) Bilateral lower extremity edema Hypertensive heart and kidney disease with chronic diastolic congestive heart failure and stage 3a chronic kidney disease (HCC) Expected: 02/22/2024 (Approximate), Expires: 11/21/2024 BASIC METABOLIC PANEL Lab Routine COPD, severe (HCC) Pulmonary HTN (HCC) Type 2 diabetes mellitus with stage 3a chronic kidney disease, without long-term current use of insulin (HCC) Chronic respiratory failure with hypoxia and hypercapnia (HCC) Chronic heart failure with preserved ejection fraction (HCC) MDD (major depressive disorder), recurrent episode, moderate (HCC) Bilateral lower extremity edema Hypertensive heart and kidney disease with chronic diastolic congestive heart failure and stage 3a chronic kidney disease (HCC) Expected: 02/22/2024 (Approximate), Expires: 11/21/2024 LIPID PANEL WITH DIRECT LDL IF TG IS HIGH Lab Routine COPD, severe (HCC) Pulmonary HTN (HCC) Type 2 diabetes mellitus with stage 3a chronic kidney disease, without long-term current use of insulin (HCC) Chronic respiratory failure with hypoxia and hypercapnia (HCC) Chronic heart failure with preserved ejection fraction (HCC) MDD (major depressive disorder), recurrent episode, moderate (HCC) Bilateral lower extremity edema Hypertensive heart and kidney disease with chronic diastolic congestive heart failure and stage 3a chronic kidney disease (HCC) Expected: 02/22/2024 (Approximate), Expires: 11/22/2024 TSH WITH FREE T4 IF INDICATED Lab Routine COPD, severe (HCC) Pulmonary HTN (HCC) Type 2 diabetes mellitus with stage 3a chronic kidney disease, without long-term current use of insulin (HCC) Chronic respiratory failure with hypoxia and hypercapnia (HCC) Chronic heart failure with preserved ejection fraction (HCC) MDD (major depressive disorder), recurrent episode, moderate (HCC) Bilateral lower extremity edema Hypertensive heart and kidney disease with chronic diastolic congestive heart failure and stage 3a chronic kidney disease (HCC) Expected: 02/22/2024 (Approximate), Expires: 11/21/2024 Scheduled Referrals Name Type Priority Associated Diagnoses Orde r Schedule ADULT/PEDS PSYCHIATRY REFERRAL OP Referral Within 10 days (routine) MDD (major depressive disorder), recurrent episode, moderate (HCC) Ordered: 11/22/2023 Health Maintenance Due Date Last Done Comments [...] Additional history exists CKD PHOS USE SMARTSET 71186 09/12/202408/20, 05/21/2023, 07/27/2022, Additional history exists DISCUSS TOBACCO CESSATION (REFER TO SMARTSET #7975) 10/15/2024 10/15/2023, 05/31/2023, 01/12/2023, Additional history exists CKD HGB USE SMARTSET 23770 11/18/202411/18, 09/13/2023, 09/13/2023, Additional history exists O2 ASSESSMENT COMPLETED IN PAST YEAR FOR COPD 11/22/2024 11/22/2023 Lipid Panel 04/19/2027 04/19/2022, 12/21, 01/21/2021, Additional history exists Cervical Cancer Screening Discontinued Pap Smear Discontinued 10/10/2016, 10/21, 11/17/2013, Additional history exists Pneumococcal Vaccine: 65+ Years Completed 05/10/2022, 11/17/2013 LUNG CANCER SCREENING - USE SMARTSET 21074 Completed 09/09/2023, 05/22/2023, 12/15/2022, Additional history exists [...] respiratory failure with hypoxia and hypercapnia (HCC) Pulmonary HTN (HCC) Other chronic pulmonary heart diseases Chronic heart failure with preserved ejection fraction (HCC) Type 2 diabetes mellitus with stage 3a chronic kidney disease, without long-term current use of insulin (HCC) Hypertensive heart and kidney disease with chronic diastolic congestive heart failure and stage 3a chronic kidney disease (HCC) Bilateral lower extremity edema Edema MDD (major depressive disorder), recurrent episode, moderate (HCC) Major depressive disorder, recurrent episode, moderate Tobacco use disorder documented in this encounter [...] First Alternate Health Care Agent Care Teams Rim Fire Priming Tool Setter Relationship Specialty Start Date End Date Marcos Maurice PA-C [address] [facility] [place] [address] PCP - General Physician Sound Editor 11/22/23 documented as of this encounter
--- OUTSIDE RECORDS SUMMARY | 2024-04-14 13:04 | External Medical Summary | Summary of Care ---
Author Name Unknown Organization [facility] Address [address] [place] [address] Phone [phone] Care Team Providers Care Filter Tank Tender Helper Head Name Role Phone Marcos Maurice PA-C Primary Care Provide r Reason for Visit * Reason Onset Date Comments Referral 11/22/2023 Encounter Details Date Type Department Care Team (Late st Contact Info) Description 11/22/2023 Telephone Family Practice [facility], [place] [address] [place] [address] Services, Scheduling [address] [place] [address] Referral Allergies Active Allergy Reactions Criticality Noted Date Comments Cortisone Muscle pain Medium 04/09/2017 At site of shot Bee Venom Anaphylaxis High 06/25/2021 Hydrocortisone High 12/25/2021 Other reaction(s): PAIN,UNABLE TO MOVE documented as of this encounter (statuses as of 11/22/2023) Medications Medication Sig Dispensed Refills Start Date [...] MG Oral Tablet (Crestor)Indications: Cor pulmonale, chronic ([facility]),COPD, group D, by GOLD 2017 classification ([facility]),Hypertensive heart and kidney disease with chronic diastolic congestive heart failure and stage 3a chronic kidney disease ([facility]),Dyslipidemia,Es sential hypertension with goal blood [...] disease, without long-term current use of insulin ([facility]) Take 1 Tablet by mouth in the morning. 30 Tablet 11 11/22/2022 Active metFORMIN HCl 1000 MG Oral Tablet (Glucophage)Indicatio ns:Type 2 diabetes mellitus with stage 3a chronic kidney disease, without long-term current use of insulin ([facility]) Take 1 Tablet by mouth 2 times a day with morning and evening meals. 60 Tablet 5 11/22/2022 Active Azelastine HCl 0.1 % Nasal Solution (Astelin) Administer 1 [place] into nostril in the morning and 1 [place] before bedtime. 30 mL 12 01/12/2023 Active Gabapentin 600 MG Oral Tablet (Neurontin)Indication s:Generalized osteoarthritis Take 1 Tablet by mouth in the morning and 1 Tablet before bedtime. 180 Tablet 3 03/26/2023 Active Furosemide 80 MG Oral Tablet (Lasix)Indications:Ge neralized osteoarthritis,Chroni c diastolic heart failure ([facility]) Take 1 Tablet by mouth [...] s:COPD, group D, by GOLD 2017 classification ([facility]) Inhale 1 Vial via nebulizer [...] exacerbation of chronic obstructive pulmonary disease (COPD) ([facility]) Take 1 Capsule by mouth at bedtime. 90 Capsule 3 08/21/2023 Active Melatonin 3 MG Oral Tablet Take 1 Tablet by mouth at bedtime. 30 Tablet 1 09/17/2023 Active buPROPion HCl ER (XL) 300 MG Oral Tablet Extended Release 24 Hour (Wellbutrin XL)Indications:MDD (major depressive disorder), recurrent episode, mild ([facility]) Take 1 Tablet by mouth [...] as of this encounter (statuses as of 11/22/2023) Active Problems Problem Noted Date Diagnosed Date [...] - TRES o Class D - Inhaled Lizpvmvjwtnwef-RBQX-CJMZ Combination Inhaler (Trellegy) o PD-4 Inhibitor (Daliresp) [...] oximeter to monitor SpO2, advised to contact [facility] if <90% and titrate as necessary, Tobacco use disorder 04/21/2021 Last Assessment & Plan: Referral to [employer] for assistance in getting nicoderm patches covered [...] Last Assessment & Plan: 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 Educated on use. Must call [facility] when initiated so further assessment can be made documented as of this encounter (statuses as of 11/22/2023) Immunizations Name Administration Dates Next Due COVID-19 mRNA, LNP-s, No Pre serve, 2-Dose Series (Moderna) 01/28/2021 Pneumococcal Conjugate Vacci ne, 20-valent ([id number]) 05/10/2022 Pneumococcal Polysaccharide PPV23 (Pneumovax) 11/17/2013 Seasonal [...] Description 12/10/2023 3:00 PM EST [facility] [address] [place] [address] Andrea Mcclendon DO [address] [facility] [address] 06/18/2024 7:40 AM EDT Office Visit [facility], [place] [address] [place] [address] Piper Cazares DO [address] [place] [address] 07/14/2024 1:00 PM EDT PulmDiagnostic Pulmonary Function Lab, [address] [address] [place], Pulm Function Room 1 [address] [place] [address] 07/14/2024 2:00 PM EDT [facility], [address] [address] [facility], Pulm Function Room [address] [place] [address] 07/23/2024 3:20 PM EDT Office Visit Pulmonary Medicine [place] [address] [place] [phone] Chance Zimmerman MD [address] [place] [id number] Health Maintenance Due Date Last Done Comments [...] Additional history exists CKD PHOS USE SMARTSET 38535 09/12/202408/20, 05/21/2023, 07/27/2022, Additional history exists DISCUSS TOBACCO CESSATION (REFER TO SMARTSET #3290) 10/15/2024 10/15/2023, 05/31/2023, 01/12/2023, Additional history exists CKD HGB USE SMARTSET 13938 11/18/202411/18, 09/13/2023, 09/13/2023, Additional history exists O2 ASSESSMENT COMPLETED IN PAST YEAR FOR COPD 11/22/2024 11/22/2023 Lipid Panel 04/19/2027 04/19/2022, 12/21, 01/21/2021, Additional history exists Cervical Cancer Screening Discontinued Pap Smear Discontinued 10/10/2016, 10/21, 11/17/2013, Additional history exists Pneumococcal Vaccine: 65+ Years Completed 05/10/2022, 11/17/2013 LUNG CANCER SCREENING - USE SMARTSET 19426 Completed 09/09/2023, 05/22/2023, 12/15/2022, Additional history exists [...] First Alternate Health Care Agent Care Teams Filter Tank Tender Helper Head Relationship Specialty Start Date End Date Marcos Maurice PA-C [address] [facility] [place] [address] PCP - General Physician Aeronautical Engineer 11/22/23 documented as of this encounter
--- OUTSIDE RECORDS SUMMARY | 2024-04-14 13:04 | External Medical Summary | Summary of Care ---
Author Name Unknown Organization [facility] Address [address] [place] [address] Phone [phone] Care Team Providers Care Dumb Waiter Operator Name Role Phone Marcos Maurice PA-C Primary Care Provide r Reason for Visit * Reason Onset Date Comments Order Request 11/22/2023 Mammo Encounter Details Date Type Department Care Team (Late st Contact Info) Description 11/22/2023 Telephone Family Practice [facility], [place] [address] [place] [address] Services, Scheduling [address] [place] [address] Order Request (Mammo) Allergies Active Allergy Reactions [...] Tablet (Crestor)Indications: Cor pulmonale, chronic ([facility]),COPD, group D, by GOLD 2017 classification ([facility]),Hypertensive heart and kidney disease with chronic diastolic congestive heart failure and stage 3a chronic kidney disease ([facility]),Dyslipidemia,Es sential hypertension with goal blood pressure less [...] long-term current use of insulin ([facility]) Take 1 Tablet by mouth in the morning. 30 Tablet 11/22/2022 Active metFORMIN HCl 1000 MG Oral Tablet (Glucophage)Indicatio ns:Type 2 diabetes mellitus with stage 3a chronic kidney disease, without long-term current use of insulin ([facility]) Take 1 Tablet by mouth 2 times a day with morning and evening meals. 60 Tablet 5 11/22/2022 Active Azelastine HCl 0.1 % Nasal Solution (Astelin) Administer 1 [place] into nostril in the morning and 1 [place] before bedtime. 30 mL 12 01/12/2023 Active [...] D, by GOLD 2017 classification ([facility]) Inhale 1 Vial via nebulizer every [...] chronic obstructive pulmonary disease (COPD) ([facility]) Take 1 Capsule by mouth at bedtime. 90 Capsule 3 08/21/2023 Active Melatonin 3 MG Oral Tablet Take 1 Tablet by mouth at bedtime. 30 Tablet 1 09/17/2023 Active buPROPion HCl ER (XL) 300 MG Oral Tablet Extended Release 24 Hour (Wellbutrin XL)Indications:MDD (major depressive disorder), recurrent episode, mild ([facility]) Take 1 Tablet by mouth in [...] - TRES o Class D - Inhaled Acoxhmjsvsvyoo-ULXD-EGVL Combination Inhaler (Trellegy) o PD-4 Inhibitor (Daliresp) [...] 04/21/2021 Last Assessment & Plan: Referral to [employer] for assistance in getting nicoderm patches covered [...] Last Assessment & Plan: Currently followed by correspondence review clerk--not on any antihistamines currently, has follow [...] - TRES o Class D - Inhaled Bmmxicykyehtef-ALJM-EPYB Combination Inhaler (Trellegy) o PD-4 Inhibitor (Daliresp) Self-Management plan o Prednisone 40mg daily for 5 days Rx o High frequency nebulizer treatments every 4-6 hours around the clock Exacerbation plan o Prednisone rescue kit Rescue kit given today. Educated on use. Must call [facility] when initiated so further assessment can be made documented as of this encounter (statuses as of 11/23/2023) Immunizations Name Administration Dates Next Due COVID-19 mRNA, LNP-s, No Pre serve, 2-Dose Series (Moderna) 01/28/2021 Pneumococcal Conjugate Vacci ne, 20-valent ([id number]) 05/10/2022 Pneumococcal Polysaccharide PPV23 (Pneumovax) 11/17/2013 Seasonal [...] Telephone Encounter - Gladis Tellez OSA - 11/23/2023 10:18 AM EST Mammo order/demo/ins info faxed to Scheduling. They will contact pt directly to schedule. * Telephone Encounter - Hui Kauffman OSA - 11/22/2023 5:14 PM EST Pt would like to get a mammogram done. Please place the order. Thank you [facility] documented in this encounter Plan of Treatment Upcoming Encounters Date Type Department Care Team (Late st Contact Info) Description 12/10/2023 3:00 PM EST Office Visit Ophthalmology [place] [address] Andrea Mcclendon DO [place] [address] 06/18/2024 7:40 AM EDT Office Visit [facility], [place] [address] [facility] [place] [address] Piper Cazares DO [address] [facility] [place] [address] 07/14/2024 1:00 PM EDT PulmDiagnostic Pulmonary Function Lab, [facility] [address] [facility] [address] [facility], [facility]m Function [facility] [address] [facility] [address] 07/14/2024 2:00 PM EDT PulmDiagnostic Pulmonary Function Lab, [facility] [address] [facility] [place] [address] [facility], [facility]m Function Room 2 [address] [facility] [address] 07/23/2024 3:20 PM EDT Office Visit Pulmonary Medicine [place] [address] [place] [phone] Chance Zimmerman MD [address] [place] [address] Health Maintenance Due Date Last Done Comments [...] Additional history exists CKD PHOS USE SMARTSET 88432 09/12/202408/20, 05/21/2023, 07/27/2022, Additional history exists DISCUSS TOBACCO CESSATION (REFER TO SMARTSET #3291) 10/15/2024 10/15/2023, 05/31/2023, 01/12/2023, Additional history exists CKD HGB USE SMARTSET 35528 11/18/202411/18, 09/13/2023, 09/13/2023, Additional history exists O2 ASSESSMENT COMPLETED IN PAST YEAR FOR COPD 11/22/2024 11/22/2023 Lipid Panel 04/19/2027 04/19/2022, 12/21, 01/21/2021, Additional history exists Cervical Cancer Screening Discontinued Pap Smear Discontinued 10/10/2016, 10/21, 11/17/2013, Additional history exists Pneumococcal Vaccine: 65+ Years Completed 05/10/2022, 11/17/2013 LUNG CANCER SCREENING - USE SMARTSET 89821 Completed 09/09/2023, 05/22/2023, 12/15/2022, Additional history exists [...] First Alternate Health Care Agent Care Teams Dumb Waiter Operator Relationship Specialty Start Date End Date Marcos Maurice PA-C [address] [facility] [place] [address] PCP - General Physician Scissors Sharpener 11/22/23 documented as of this encounter
--- OUTSIDE RECORDS SUMMARY | 2024-04-14 13:05 | External Medical Summary | Summary of Care ---
Author Name Unknown Organization [facility] Address [address] [place] [address] Phone [phone] Care Team Providers Care Auto Design Checker Name Role Phone Cydney Lopez DO Primary Care Provider [phone] Reason for Visit * Reason Onset Date Comments Follow Up 11/09/2023 COPD Proven [facility] 60 day f/u Encounter Details Date Type Department Care Team (Late st Contact Info) Description 11/09/2023 Telephone Pulmonary Rehab, [address] [address] Debra Larsen, WAREHOUSE STOCKER Follow Up (COPD [facility] 60 day f/u ) Allergies Active Allergy Reactions Criticality Noted Date Comments Cortisone Muscle pain Medium 04/09/2017 At site of shot Bee Venom Anaphylaxis High 06/25/2021 Hydrocortisone High 12/25/2021 Other reaction(s): PAIN,UNABLE TO MOVE documented as of this encounter (statuses as of 11/09/2023) Medications Medication Sig Dispensed Refills Start Date [...] Oral Tablet (Crestor)Indications: Cor pulmonale, chronic ([facility]),COPD, group D, by GOLD 2017 classification ([facility]),Hypertensive heart and kidney disease with chronic diastolic congestive heart failure and stage 3a chronic kidney disease ([facility]),Dyslipidemia,Es sential hypertension with goal blood pressure [...] 0.1 % Nasal Solution (Astelin) Administer 1 Andreas into nostril in the morning and 1 Andreas before bedtime. 30 mL 12 01/12/2023 Active [...] exacerbation of chronic obstructive pulmonary disease (COPD) ([facility]) Take 1 Capsule by mouth at bedtime. 90 Capsule 3 08/21/2023 Active Melatonin 3 MG Oral Tablet Take 1 Tablet by mouth at bedtime. 30 Tablet 1 09/17/2023 Active buPROPion HCl ER (XL) 300 MG Oral Tablet Extended Release 24 Hour (Wellbutrin XL)Indications:MDD (major depressive disorder), recurrent episode, mild ([facility]) Take [...] as of this encounter (statuses as of 11/09/2023) Active Problems Problem Noted Date Diagnosed Date [...] - TRES o Class D - Inhaled Aaquuynfhvyjnt-BFRB-CLIH Combination Inhaler (Melvinegy) o PD-4 Inhibitor (Daliresp) [...] oximeter to monitor SpO2, advised to contact [facility] if <90% and titrate as necessary, Tobacco use disorder 04/21/2021 Last Assessment & Plan: Referral to [employer] for assistance in getting nicoderm patches [...] Last Assessment & Plan: Currently followed by disposition clerk--not on any antihistamines currently, has follow [...] as of this encounter (statuses as of 11/09/2023) Resolved Problems Problem Noted Date Diagnosed Date [...] - TRES o Class D - Inhaled Ovxholjbsflhjz-PSWC-KWHT Combination Inhaler (Trellegy) o PD-4 Inhibitor (Daliresp) Self-Management plan o Prednisone 40mg daily for 5 days Rx o High frequency nebulizer treatments every 4-6 hours around the clock Exacerbation plan o Prednisone rescue kit Rescue kit given today. Educated on use. Must call [facility] when initiated so further assessment can be made documented as of this encounter (statuses as of 11/09/2023) Immunizations Name Administration Dates Next Due COVID-19 mRNA, LNP-s, No Pre serve, 2-Dose Series (Moderna) 01/28/2021 Pneumococcal Conjugate Vacci ne, 20-valent ([id number]) 05/10/2022 Pneumococcal Polysaccharide PPV23 (Pneumovax) 11/17/2013 Seasonal [...] Notes * Telephone Encounter - Debra Larsen, WAREHOUSE STOCKER - 11/09/2023 9:46 AM EST 60 day Follow-Up Phone Call Patient Name: Edna Kebede Discharge Date: 09/13/23 Date of Call: 11/09/2023 Time of Call: 9:46 AM Patient successfully contacted? Yes Symptoms/Exposure How is your breathing ? Baseline - good and bad days Sputum: Color clear Sputum Volume: baseline Shortness of Breath: baseline Cough: baseline Fatigue: baseline Baseline Symptoms: sob with exertion, productive cough Comorbid Conditions: CHF, PHTN, DM, obesity Exposures to irritants (mold, dust, debris, chemicals, pets, etc.): no Smokes: 4-5 per day - using nicotine patch Second-Hand Smoke Exposure: No Triggers: weather COVID-19 Screening Not indicated Readmission Screening Readmission within 30 days?: No Vaccine History Immunization History Administered Date(s) Administered COVID-19 mRNA, LNP-s, No Preserve, 2-Dose Series (Moderna) 01/28/2021 Pneumococcal Conjugate Vaccine, 20-valent ([id number]) 05/10/2022 Pneumococcal Polysaccharide PPV23 (Pneumovax) 11/17/2013 Seasonal Influenza, PF, 6 M & above, IM , (FluLaval or Fluzone) 11/20/2017, 09/10/2019 Seasonal Influenza, Quadrivalent Hd (Fluzone Hd) 09/13/2023 Seasonal Influenza, Quadrivalent, No Preserve, IM 10/10/2016 Seasonal Influenza, Split, IIV3, With Preserve, Inj 11/17/2013, 06/27/2014, 08/20/2015 TDAP (age 10 and older)(Boostrix) 11/17/2013 Follow-Up Next Pulmonary Appointment: Visit date not found Transportation Difficulty: No Followed by or Eligible for: [facility] home health - visits one day a week Have you received your education packet? Yes Would you like to review it? No Medicated Therapy Respiratory Medications/Use: Trelegy- rinsing mouth, Albuterol neb, Albuterol MDI - using albuterol3-4 hours Difficulty Affording Respiratory Medications: No Oxygen Use: 02 @ 3 lpm x 24 hours DME: [facility]urel[facility]ar[facility] Noninvasive therapy: no pt's bipap was picked up d/t non compliance - pt was retested while in admitted did not qualify Activity Activity Level: completed PT post discharge Pulmonary Rehab Program discussed Interested/Eligible for Pulmonary Rehab: pt is planning to resume [place] @ [facility] after discharge from [facility] As part of our comprehensive pulmonary care, we like to understand your values, goals, and priorities for your COPD care. This involves a discussion to talk more about your future care and treatment preferences. Would you be interested in discussing this further? Patient prefers: In person Advice given to patient: Pulmonary regimen reviewed with patient. Instructed patient to call the Pulmonary Clinic when starting to notice early onset of COPD flare symptoms. Smoking education provided. Encouraged staying active. Pt encouraged to use spacer with albuterol MDI. Education on use and purpose provided. Pt monitors 02 sats they have been maintaining 90% on 3 lpm. Pt is using flutter valve. Pt is taking Zithromax M,W,F- doing well with it. Does patient need additional follow up? Yes, by telephone within 30 days from 11/09/2023 Debra Larsen CRT documented in this encounter Plan of Treatment Upcoming Encounters Date Type Department Care Team (Late st Contact Info) Description 11/22/2023 12:00 PM EST Office Visit [facility] Osei Dasilva [address] [place] [address] Marcos Maurice PA-C [address] [place] [address] 12/10/2023 3:00 PM EST Office Visit [facility] [address] [place] [address] Andrea Mcclendon DO [address] [address] 07/14/2024 1:00 PM EDT PulmDiagnostic Pulmonary Function Lab Pratibha Anguiano [address] [place] [address] [address], [address] [place] [address] Health Maintenance Due Date Last Done Comments [...] 09/09/2023, 02/2023, 09/18/2022, Additional history exists GFR 03/14/2024 09/13/2023, 08/20, 09/10/2023, Additional history exists CKD PHOS USE SMARTSET 12560 09/12/202408/20, 05/21/2023, 07/27/2022, Additional history exists CKD HGB USE SMARTSET 93803 09/13/202409/13, 09/13/2023, 09/12/2023, Additional history exists DISCUSS TOBACCO CESSATION (REFER TO SMARTSET #4324) 10/15/2024 10/15/2023, 05/31/2023, 01/12/2023, Additional history exists O2 ASSESSMENT COMPLETED IN PAST YEAR FOR COPD 10/15/2024 10/15/2023 Lipid Panel 04/19/2027 04/19/2022, 12/21, 01/21/2021, Additional history exists Cervical Cancer Screening Discontinued Pap Smear Discontinued 10/10/2016, 10/21, 11/17/2013, Additional history exists Pneumococcal Vaccine: 65+ Years Completed 05/10/2022, 11/17/2013 LUNG CANCER SCREENING - USE SMARTSET 45688 Completed 09/09/2023, 05/22/2023, 12/15/2022, Additional history exists [...] identity) First Alternate Health Care Agent Jazmine Cornoa Adult Child First Alternate Health Care Agent Care Teams Auto Design Checker Relationship Specialty Start Date End Date Cydney Lopez DO PCP - General Family Medicine 07/26/22 documented as of this encounter
--- OUTSIDE RECORDS SUMMARY | 2024-04-14 13:05 | External Medical Summary | Summary of Care ---
Author Name Unknown Organization [facility] Address [address] [place] [address] Phone [phone] Care Team Providers Care Medical Office Clerk Name Role Phone Cydney Lopez DO Primary Care Provider Un available Encounter Details Date Type Department Care Team (Late st Contact Info) Description 10/28/2023 Result Scan Unspecified Department <No scans attached> Allergies Active Allergy Reactions Criticality Noted Date Comments Cortisone Muscle pain Medium 04/09/2017 At site of shot Bee Venom Anaphylaxis High 06/25/2021 Hydrocortisone High 12/25/2021 Other reaction(s): PAIN,UNABLE TO MOVE documented as of this encounter (statuses as of 10/30/2023) Medications Medication Sig Dispensed Refills Start Date [...] MG Oral Tablet (Crestor)Indications: Cor pulmonale, chronic ([facility]),COPD, group D, by GOLD 2017 classification ([facility]),Hypertensive heart and kidney disease with chronic diastolic congestive heart failure and stage 3a chronic kidney disease ([facility]),Dyslipidemia,Es sential hypertension with goal blood pressure less [...] 0.1 % Nasal Solution (Astelin) Administer 1 [place] into nostril in the morning and 1 [place] before bedtime. 30 mL 01/12/2023 Active Gabapentin 600 MG Oral Tablet (Neurontin)Indication s:Generalized osteoarthritis Take 1 Tablet by mouth in the morning and 1 Tablet before bedtime. 180 Tablet 3 03/26/2023 Active Furosemide 80 MG Oral Tablet (Lasix)Indications:Ge neralized osteoarthritis,Chroni c diastolic heart failure ([facility]) [...] s:COPD, group D, by GOLD 2017 classification ([facility] [...] XL)Indications:MDD (major depressive disorder), recurrent episode, mild ([facility]) Take 1 Tablet [...] as of this encounter (statuses as of 10/30/2023) Active Problems Problem Noted Date Diagnosed Date [...] - TRES o Class D - Inhaled Wgrppgmhglcgew-HTRH-YCJU Combination Inhaler (Ludmila) o PD-4 Inhibitor (Daliresp) [...] 04/21/2021 Last Assessment & Plan: Referral to [employer] for assistance in getting nicoderm patches covered [...] Last Assessment & Plan: 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 Educated on use. Must call [facility] when initiated so further assessment can be made documented as of this encounter (statuses as of 10/30/2023) Immunizations Name Administration Dates Next Due COVID-19 mRNA, LNP-s, No Pre serve, 2-Dose Series (Moderna) 01/28/2021 Pneumococcal Conjugate Vacci ne, 20-valent ([id number]) 05/10/2022 Pneumococcal Polysaccharide PPV23 (Pneumovax) 11/17/2013 Seasonal [...] 11/22/2023 12:00 PM EST [facility] Visit [facility] [address] [place] [address] Marcos Maurice PA-C [address] [place] [address] 07/14/2024 1:00 PM EDT PulmDiagnostic Pulmonary Function Lab [facility] [place] [address] [place] [address] [address], [address] [place] [address] Health Maintenance Due Date Last Done Comments [...] 07/0 02/2023, 09/18/2022, Additional history exists GFR 03/14/2024 09/13/2023, 08/20, 09/10/2023, Additional history exists CKD PHOS USE SMARTSET 27058 09/12/202408/20, 05/21/2023, 07/27/2022, Additional history exists CKD HGB USE SMARTSET 87306 09/13/202409/13, 09/13/2023, 09/12/2023, Additional history exists DISCUSS TOBACCO CESSATION (REFER TO SMARTSET #9798) 10/15/2024 10/15/2023, 05/31/2023, 01/12/2023, Additional history exists O2 ASSESSMENT COMPLETED IN PAST YEAR FOR COPD 10/15/2024 10/15/2023 Lipid Panel 04/19/2027 04/19/2022, 12/21, 01/21/2021, Additional history exists Cervical Cancer Screening Discontinued Pap Smear Discontinued 10/10/2016, 10/21, 11/17/2013, Additional history exists Pneumococcal Vaccine: 65+ Years Completed 05/10/2022, 11/17/2013 LUNG CANCER SCREENING - USE SMARTSET 01168 Completed 09/09/2023, 05/22/2023, 12/15/2022, Additional history exists [...] Date/Time Associated Diagnosis Comments RADIOLOGY SCANNED RESULT 10/28/2023 documented in this encounter Results * RADIOLOGY SCANNED RESULT (10/28/2023) 10/28/2023 No Physician Data Unknown DIAGNOSTIC RAD IOLOGY [...] First Alternate Health Care Agent Care Teams Medical Office Clerk Relationship Specialty Start Date End Date Cydney Lopez DO PCP - General Family Medicine 07/26/22 documented as of this encounter
--- OUTSIDE RECORDS SUMMARY | 2024-04-14 13:05 | External Medical Summary | Summary of Care ---
Author Name Unknown Organization [facility] Address [address] [place] [address] Phone [phone] Care Team Providers Care Air Drier Name Role Phone Cydney Lopez DO Primary Care Provider [phone] Reason for Visit * Reason Onset Date Comments Follow Up 11/09/2023 COPD [facility] 60 day f/u Encounter Details Date Type Department Care Team (Late st Contact Info) Description 11/09/2023 Telephone Pulmonary Rehab, [address] [address] Debra Larsen, FOREST MANAGER Follow Up (COPD [facility] 60 day [...] Tablet (Crestor)Indications: Cor pulmonale, chronic ([facility]),COPD, group D, by GOLD 2017 classification ([facility]),Hypertensive heart and kidney disease with chronic diastolic congestive heart failure and stage 3a chronic kidney disease ([facility]),Dyslipidemia,Es sential hypertension with goal blood pressure [...] 0.1 % Nasal Solution (Astelin) Administer 1 Beauty into nostril in the morning and 1 Beauty before bedtime. 30 mL 12 01/12/2023 Active [...] chronic obstructive pulmonary disease (COPD) ([facility]) Take 1 Capsule by mouth at bedtime. 90 Capsule 3 08/21/2023 Active Melatonin 3 MG Oral Tablet Take 1 Tablet by mouth at bedtime. 30 Tablet 1 09/17/2023 Active buPROPion HCl ER (XL) 300 MG Oral Tablet Extended Release 24 Hour (Wellbutrin XL)Indications:MDD (major depressive disorder), recurrent episode, mild ([facility]) Take 1 Tablet [...] - TRES o Class D - Inhaled Obypdebfnbnruu-AWKT-MSDM Combination Inhaler (Melvinegy) o PD-4 Inhibitor (Daliresp) [...] oximeter to monitor SpO2, advised to contact [facility] if <90% and titrate as necessary, Tobacco use disorder 04/21/2021 Last Assessment & Plan: Referral to [employer] for assistance in getting nicoderm patches covered [...] Last Assessment & Plan: 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 Educated on use. Must call [facility] when initiated so further assessment can be made documented as of this encounter (statuses as of 11/09/2023) Immunizations Name Administration Dates Next Due COVID-19 mRNA, LNP-s, No Pre serve, 2-Dose Series (Moderna) 01/28/2021 Pneumococcal Conjugate Vacci ne, 20-valent ([id number]) 05/10/2022 Pneumococcal Polysaccharide PPV23 (Pneumovax) 11/17/2013 Seasonal [...] Notes * Telephone Encounter - Debra Larsen, FOREST MANAGER - 11/09/2023 9:46 AM EST 60 day [...] Series (Moderna) 01/28/2021 Pneumococcal Conjugate Vaccine, 20-valent ([id number]) 05/10/2022 Pneumococcal Polysaccharide PPV23 (Pneumovax) 11/17/2013 Seasonal [...] Difficulty: No Followed by or Eligible for: [facility] home health - visits one day [...] Pulmonary Rehab: pt is planning to resume [place] @ [facility] after discharge from [facility] As [...] Description 11/22/2023 12:00 PM EST Office Visit [facility] Osei Dasilva [address] [place] [address] Marcos Maurice PA-C [address] [place] [address] 12/10/2023 3:00 PM EST Office Visit [facility] [address] [place] [address] Andrea Mcclendon DO [address] [address] 07/14/2024 1:00 PM EDT PulmDiagnostic Pulmonary Function Lab Pratibha Anguiano [address] [place] [address] [address] [address], [address] [place] [...] Additional history exists CKD PHOS USE SMARTSET 98893 09/12/202408/20, 05/21/2023, 07/27/2022, Additional history exists CKD HGB USE SMARTSET 07270 09/13/202409/13, 09/13/2023, 09/12/2023, Additional history exists DISCUSS TOBACCO CESSATION (REFER TO SMARTSET #6470) 10/15/2024 10/15/2023, 05/31/2023, 01/12/2023, Additional history exists O2 ASSESSMENT COMPLETED IN PAST YEAR FOR COPD 10/15/2024 10/15/2023 Lipid Panel 04/19/2027 04/19/2022, 12/21, 01/21/2021, Additional history exists Cervical Cancer Screening Discontinued Pap Smear Discontinued 10/10/2016, 10/21, 11/17/2013, Additional history exists Pneumococcal Vaccine: 65+ Years Completed 05/10/2022, 11/17/2013 LUNG CANCER SCREENING - USE SMARTSET 95238 Completed 09/09/2023, 05/22/2023, 12/15/2022, Additional history exists [...] First Alternate Health Care Agent Care Teams Air Drier Relationship Specialty Start Date End Date Cydney Lopez DO PCP - General Family Medicine 07/26/22 documented as of this encounter
[2024-04-14 13:11] LABS: Base Excess VBG 13.4 mEq/L; HCO3 VBG 42 mmol/L; Oxygen Saturation VBG 87.4 %; PCO2 VBG 75 mmHg (38-50); PO2 VBG 54 mmHg; pH VBG 7.36 (7.36-7.41)
[2024-04-14 13:15] LABS: Hematocrit (blood only) 32.9 % (37.0-47.0); Mean Corpuscular Hemoglobin 27.7 pg (25.0-34.0); Mean Corpuscular Hgb Conc 30.4 g/dL (32.0-36.0); Mean Corpuscular Volume 91.1 fL (80.0-100.0); Mean Platelet Volume 9.4 fL (9.4-12.4); Platelet Count 316 K/uL (130-400); RDW Coefficient of Variation 16.3 % (11.5-14.5); RDW Standard Deviation 54.2 fL (36.4-46.3); Red Blood Count 3.61 M/uL (4.20-5.40); White Blood Count 8.42 K/ul (4.8-10.8)
[2024-04-14 13:36] LABS: Basophilic Stippling 1+; Basophils # (auto) 0.01 K/uL (0.00-0.20); Basophils % (auto) 0.1 %; Eosinophils # (auto) 0.02 K/uL (0.00-0.50); Eosinophils % (auto) 0.2 %; Immature Granulocytes # (auto) 0.05 K/uL (0.01-0.20); Immature Granulocytes % (auto) 0.6 %; Lymphocytes # (auto) 0.48 K/uL (1.20-3.40); Lymphocytes % (auto) 5.7 %; Monocytes # (auto) 0.09 K/uL (0.11-0.59); Monocytes % (auto) 1.1 %; Neutrophils # (auto) 7.77 K/uL (1.40-6.50); Neutrophils % (auto) 92.3 %; Polychromasia 1+; Stomatocytes 1+
[2024-04-14 13:42] LABS: Albumin Globulin Ratio 1.3 (0.9-2); Albumin Level 3.7 gm/dl (3.4-5.0); BUN Creatinine Ratio 15.1 (10-20); Bilirubin,Total 0.3 mg/dl (0.2-1.0); Calcium 8.2 mg/dl (8.6-10.3); Creatinine Clr Calc Pharmacy 72.1 ml/min; Est GFR (African American) 74.7 ml/min; Est GFR (Non-African American) 64.5 ml/min; Globulin 2.8 gm/dl (2.5-4.0); Magnesium 1.8 mg/dl (1.7-2.4); Potassium 3.6 mmol/L (3.5-5.1); Total Protein 6.5 gm/dl (6.0-8.3); Troponin I High Sensitivity 10.7 pg/ml (0-14)
[2024-04-14] MEDS: INSULIN ASPART PER UNIT CHARGE SC STA (13:56)
[2024-04-14] MEDS: INSULIN ASPART PER UNIT CHARGE ONE (13:57)
[2024-04-14] MEDS: LANTUS PER UNIT CHARGE SQ ONE (13:57)
--- NOTE | 2024-04-14 13:59 | XRay Report ---
XR chest 2V PA/lateral CLINICAL HISTORY: Hypoxic respiratory failure. COMPARISON STUDY: No previous studies for comparison. FINDINGS: Lung volumes are normal. There is no pneumothorax or pleural effusion. Cardiac size is norm al. Pulmonary vascularity is normal. No consolidation is identified. Evidence for bilateral distal cl avicular resections. IMPRESSION: No acute cardiopulmonary findings. ACT 112: Negative or not required by law. Electronically signed by: Stanley Henao M.D. 04/14/2024 1:58 PM
[2024-04-14] MEDS: ACETAMINOPHEN 325 MG TAB PO PRN (14:03)
[2024-04-14] MEDS: ALBUT/IPRATROP 3MG/0.5MG NEB 3 ML VIAL NEB PRN (14:06)
--- NOTE | 2024-04-14 14:07 | XRay Report ---
KUB CLINICAL HISTORY: Abdominal distention. COMPARISON STUDY: None. FINDINGS: Status post cholecystectomy. The bowel gas pattern is normal. There is a moderate amount of stool within the rectum. Amount of stool within the colon is normal. Moderate bilateral hip osteoart hritis is incidentally noted. IMPRESSION: 1. No evidence for a bowel obstruction. 2. Moderate amount of stool within the rectum. ACT 112: Negative or not required by law. Electronically signed by: Stanley Henao M.D. 04/14/2024 2:06 PM
[2024-04-14] MEDS: UMECLIDINIUM BROMIDE 62.5MCG/BLISTER 7 PUFFS/INHALER INH SCH (14:49)
[2024-04-14] MEDS: FLUTICASONE/VILANTEROL 100/25MCG 14 PUFFS/INHALER INH SCH (14:49)
[2024-04-14] MEDS: PLASMA-LYTE A 1,000 ML IV ONE (15:15)
[2024-04-14] MEDS: LACTATED RINGER'S 1,000 ML IV ONE (16:55)
[2024-04-14] MEDS: NICOTINE 21 MG/24 HR TDSY TD SCH (16:55)
[2024-04-14] MEDS: INSULIN ASPART PER UNIT CHARGE SC SCH (16:56)
[2024-04-14 17:12] LABS: HCO3 VBG 41 mmol/L; Oxygen Saturation VBG 89.8 %; PCO2 VBG 70 mmHg (38-50); PO2 VBG 55 mmHg; pH VBG 7.38 (7.36-7.41)
[2024-04-14 20:49] LABS: Base Excess VBG 17.1 mEq/L; HCO3 VBG 45 mmol/L; Oxygen Saturation VBG 79.9 %; PCO2 VBG 70 mmHg (38-50); PO2 VBG 45 mmHg; pH VBG 7.42 (7.36-7.41)
[2024-04-14] MEDS: APIXABAN 5 MG TABLET PO SCH (20:53)
[2024-04-14] MEDS: MELATONIN 3 MG TAB PO PRN (20:59)
[2024-04-14] MEDS: GABAPENTIN 300 MG CAP PO STA (21:41)
[2024-04-14] MEDS: PLASMA-LYTE A 1,000 ML IV SCH (22:22)
[2024-04-15 06:40] LABS: Basophils # (auto) 0.01 K/uL (0.00-0.20); Basophils % (auto) 0.1 %; Eosinophils # (auto) 0.01 K/uL (0.00-0.50); Eosinophils % (auto) 0.1 %; Hematocrit (blood only) 32.1 % (37.0-47.0); Hemoglobin 9.8 g/dl (12.0-16.0); Immature Granulocytes # (auto) 0.05 K/uL (0.01-0.20); Immature Granulocytes % (auto) 0.6 %; Lymphocytes # (auto) 0.96 K/uL (1.20-3.40); Lymphocytes % (auto) 11.5 %; Mean Corpuscular Hemoglobin 27.7 pg (25.0-34.0); Mean Corpuscular Hgb Conc 30.5 g/dL (32.0-36.0); Mean Corpuscular Volume 90.7 fL (80.0-100.0); Mean Platelet Volume 9.2 fL (9.4-12.4); Monocytes # (auto) 0.65 K/uL (0.11-0.59); Monocytes % (auto) 7.8 %; Neutrophils # (auto) 6.64 K/uL (1.40-6.50); Neutrophils % (auto) 79.9 %; Platelet Count 329 K/uL (130-400); RDW Coefficient of Variation 16.1 % (11.5-14.5); RDW Standard Deviation 53.8 fL (36.4-46.3); Red Blood Count 3.54 M/uL (4.20-5.40); White Blood Count 8.32 K/ul (4.8-10.8)
[2024-04-15 06:57] LABS: Albumin Globulin Ratio 1.4 (0.9-2); Albumin Level 3.4 gm/dl (3.4-5.0); BUN Creatinine Ratio 25.3 (10-20); Bilirubin,Total 0.3 mg/dl (0.2-1.0); Calcium 7.8 mg/dl (8.6-10.3); Creatinine Clr Calc Pharmacy 80.9 ml/min; Est GFR (African American) 85.8 ml/min; Globulin 2.5 gm/dl (2.5-4.0); Magnesium 2.2 mg/dl (1.7-2.4); Potassium 3.3 mmol/L (3.5-5.1); Total Protein 5.9 gm/dl (6.0-8.3)
[2024-04-15] MEDS: ESCITALOPRAM OXALATE 20 MG TAB PO SCH (08:45)
[2024-04-15] MEDS: buPROPion XL 300 MG TABCR PO SCH (08:45)
[2024-04-15] MEDS: LANTUS PER UNIT CHARGE SQ SCH (08:53)
--- NOTE | 2024-04-15 13:04 | Hospitalist Progress Note ---
Date of Service April 15, 2024 Assessment & Plan (1) COPD with acute exacerbation: Plan: COPD with acute exacerbation Arrived on continuous BiPAP 08/23 at 40% VBG 7.36/75/54/42 On Rocephin/azithromycin on arrival for potential superimposed pneumonia with COPD exacerbation from outside hospital. on our labs and evaluation there is no leukocytosis, procalcitonin is negative, and chest x-ray with PA/lateral is without evidence of lobar pneumonia. Patient is with compensated pH with pCO2 of 75 and HCO3 of 42 suggesting severe chronic hypercapnia. Would benefit from PPV at bedtime Scattered wheezing on admission Patient received ceftriaxone, azithromycin, and 125 mg of methylprednisolone at approximately 6 AM on 04/14/2024 at OSH. Continue azithromycin, 40 mg methylprednisolone daily Flutter valve, incentive spirometry, SpO2 goal greater than 90%, BiPAP as needed. Trelegy converted to formulary equivalent Does not show significant pulmonary edema/volume overload. Lactic acidosis resolved She reports that she has been a smoker of 1 pack/day, has recently cut down trying to quit. Nicotine patch ordered (2) History of pulmonary embolism: Plan: History of PE. She is on Eliquis with which she is compliant and reports took her last dose morning of 04/14/2024 (3) DM2 (diabetes mellitus, type 2): Plan: Metforminheld Hyperglycemic. No insulin documented as given at OSH, did receive steroids Basal bolus insulin ordered with first dose of both at time of admit. Goal BSG [id number] Pharmacy glycemic consult placed for hyperglycemia with steroid use (4) Anxiety and depression: Plan: Continue bupropion/Lexapro Patient could not confirm that she takes gabapentin. It is not on her home med list. Plan DVT prophylaxis: Anticoagulated CODE STATUS: Full code Admission and Anticipated Discharge Date Admission Date: April 14, 2024 Subjective Patient says she feels better overall. Breathing better. Wheezing less. She asked to be put back on the BiPAP this morning for comfort reasons Review of Systems Review of Systems: All systems reviewed & are unremarkable except as noted in Subjective Physical Exam Physical Exam: General: Awake, conversant. BiPAP mask on Heart: S1, S2/regular rate and rhythm, no murmur rubs or gallops Lungs: Diminished breath sounds bilaterally. Expiratory wheezes noted bilaterally. Abdomen: Soft/nontender/nondistended. No hepatosplenomegaly Extremities: No clubbing/cyanosis. No edema Behavior: Appropriate, cooperative Results & Data Results & Data Vital Signs (Past 12 Hours) Vital Signs Temp Pulse Resp BP Pulse Ox O2 Del Method O2 Flow Rate 04/15/24 11:19 89 20 90 Nasal Cannula 4 04/15/24 10:57 36.6 C 89 20 119/63 94 Nasal Cannula 04/15/24 08:05 84 20 92 Nasal Cannula 4 04/15/24 07:00 36.7 C 89 20 122/70 94 BiPAP 04/15/24 06:04 86 20 97 Nasal Cannula 5 04/15/24 02:09 36.9 C 85 18 128/74 96 BiPAP Laboratory Results Abnormal lab results 04/14/24 04/14/24 04/14/24 Range/Units 12:55 14:52 16:18 RBC (4.20-5.40) M/uL Hgb (12.0-16.0) g/dl Hct (37.0-47.0) % MCHC (32.0-36.0) g/dL RDW Std Deviation (36.4-46.3) fL RDW Coeff of Erica (11.5-14.5) % MPV (9.4-12.4) fL Neut # (Auto) 7.77 H (1.40-6.50) K/uL Lymph # (Auto) 0.48 L (1.20-3.40) K/uL [place] # (Auto) 0.09 L (0.11-0.59) K/uL VBG pH (7.36-7.41) VBG pCO2 (38-50) mmHg Potassium (3.5-5.1) mmol/L Chloride 95 L (98-107) mmol/L Carbon Dioxide 39 H (21-32) mmol/L BUN/Creatinine Ratio (10-20) Glucose 328 H* (70-99(Fasting)) mg/dl POC Glucose 284 H (70-99) mg/dl Lactate 2.5 H* (0.4-2.0) mmol/L Calcium 8.2 L (8.6-10.3) mg/dl Total Protein (6.0-8.3) gm/dl 04/14/24 04/14/24 04/14/24 Range/Units 16:58 20:29 20:40 RBC (4.20-5.40) M/uL Hgb (12.0-16.0) g/dl Hct (37.0-47.0) % MCHC (32.0-36.0) g/dL RDW Std Deviation (36.4-46.3) fL RDW Coeff of Erica (11.5-14.5) % MPV (9.4-12.4) fL Neut # (Auto) (1.40-6.50) K/uL Lymph # (Auto) (1.20-3.40) K/uL [place] # (Auto) (0.11-0.59) K/uL VBG pH 7.42 H (7.36-7.41) VBG pCO2 70 H 70 H (38-50) mmHg Potassium (3.5-5.1) mmol/L Chloride (98-107) mmol/L Carbon Dioxide (21-32) mmol/L BUN/Creatinine Ratio (10-20) Glucose (70-99(Fasting)) mg/dl POC Glucose 232 H (70-99) mg/dl Lactate (0.4-2.0) mmol/L Calcium (8.6-10.3) mg/dl Total Protein (6.0-8.3) gm/dl 04/15/24 04/15/24 04/15/24 Range/Units 06:16 07:09 11:25 RBC 3.54 L (4.20-5.40) M/uL Hgb 9.8 L (12.0-16.0) g/dl Hct 32.1 L (37.0-47.0) % MCHC 30.5 L (32.0-36.0) g/dL RDW Std Deviation 53.8 H (36.4-46.3) fL RDW Coeff of Erica 16.1 H (11.5-14.5) % MPV 9.2 L (9.4-12.4) fL Neut # (Auto) 6.64 H (1.40-6.50) K/uL Lymph # (Auto) 0.96 L (1.20-3.40) K/uL [place] # (Auto) 0.65 H (0.11-0.59) K/uL VBG pH (7.36-7.41) VBG pCO2 (38-50) mmHg Potassium 3.3 L (3.5-5.1) mmol/L Chloride 97 L (98-107) mmol/L Carbon Dioxide 39 H (21-32) mmol/L BUN/Creatinine Ratio 25.3 H (10-20) Glucose 187 H (70-99(Fasting)) mg/dl POC Glucose 207 H 114 H (70-99) mg/dl Lactate (0.4-2.0) mmol/L Calcium 7.8 L (8.6-10.3) mg/dl Total Protein 5.9 L (6.0-8.3) gm/dl Diagnostic Findings Chest X-Ray 04/14/24 10:57 XR chest 2V PA/lateral CLINICAL HISTORY: Hypoxic respiratory failure. COMPARISON STUDY: No previous studies for comparison. FINDINGS: Lung volumes are normal. There is no pneumothorax or pleural effusion. Cardiac size is normal. Pulmonary vascularity is normal. No consolidation is identified. Evidence for bilateral distal clavicular resections. IMPRESSION: No acute cardiopulmonary findings. ACT 112: Negative or not required by law. Electronically signed by: Stanley Henao M.D. 04/14/2024 1:58 PM KUB X-Ray 04/14/24 13:17 KUB CLINICAL HISTORY: Abdominal distention. COMPARISON STUDY: None. FINDINGS: Status post cholecystectomy. The bowel gas pattern is normal. There is a moderate amount of stool within the rectum. Amount of stool within the colon is normal. Moderate bilateral hip osteoarthritis is incidentally noted. IMPRESSION: 1. No evidence for a bowel obstruction. 2. Moderate amount of stool within the rectum. ACT 112: Negative or not required by law. Electronically signed by: Stanley Henao M.D. 04/14/2024 2:06 PM PG Care Time/CCT Total # of Minutes Spent Total Time Spent with Patient: Total time spent is greater than 50% in coordination of care (as documented) at patient's floor/unit and/or counseling patient: Coding Level of Care Code 38334 SUB INP/OBS CARE 2/35MIN Diagnoses COPD with acute exacerbation J44.1 History of pulmonary embolism Z86.711 DM2 (diabetes mellitus, type 2) E11.9 Anxiety and depression F41.9; F32.A
[2024-04-15] MEDS: ALBUT/IPRATROP 3MG/0.5MG NEB 3 ML VIAL NEB PRN (14:33)
[2024-04-15] MEDS: AZITHROMYCIN 500 MG in DEXTROSE 5% 250 ML IV SCH (14:38)
[2024-04-15] MEDS: methylPREDNISolone 40 MG in SYRINGE 0 ML IV SCH (14:38)
[2024-04-15] MEDS: ALBUT/IPRATROP 3MG/0.5MG NEB 3 ML VIAL INH SCH (18:17)
[2024-04-15] MEDS: GABAPENTIN 300 MG CAP PO STA (20:46)
[2024-04-16 06:25] LABS: Basophils # (auto) 0.01 K/uL (0.00-0.20); Basophils % (auto) 0.1 %; Eosinophils # (auto) 0.03 K/uL (0.00-0.50); Eosinophils % (auto) 0.3 %; Hematocrit (blood only) 31.3 % (37.0-47.0); Hemoglobin 9.6 g/dl (12.0-16.0); Immature Granulocytes % (auto) 1.1 %; Lymphocytes # (auto) 1.12 K/uL (1.20-3.40); Lymphocytes % (auto) 12.5 %; Mean Corpuscular Hemoglobin 27.9 pg (25.0-34.0); Mean Corpuscular Hgb Conc 30.7 g/dL (32.0-36.0); Mean Platelet Volume 9.4 fL (9.4-12.4); Monocytes # (auto) 0.53 K/uL (0.11-0.59); Monocytes % (auto) 5.9 %; Neutrophils # (auto) 7.15 K/uL (1.40-6.50); Neutrophils % (auto) 80.1 %; Platelet Count 339 K/uL (130-400); RDW Coefficient of Variation 16.3 % (11.5-14.5); RDW Standard Deviation 53.8 fL (36.4-46.3); Red Blood Count 3.44 M/uL (4.20-5.40); White Blood Count 8.94 K/ul (4.8-10.8)
[2024-04-16 06:44] LABS: Albumin Globulin Ratio 1.5 (0.9-2); Albumin Level 3.5 gm/dl (3.4-5.0); BUN Creatinine Ratio 24.4 (10-20); Bilirubin,Total 0.3 mg/dl (0.2-1.0); Calcium 8.2 mg/dl (8.6-10.3); Creatinine Clr Calc Pharmacy 84.7 ml/min; Est GFR (African American) 92.5 ml/min; Est GFR (Non-African American) 79.8 ml/min; Globulin 2.4 gm/dl (2.5-4.0); Total Protein 5.9 gm/dl (6.0-8.3)
[2024-04-16] MEDS: POTASSIUM CHLORIDE CRTAB 20 MEQ TABCR PO STA (09:44)
--- NOTE | 2024-04-16 14:04 | Hospitalist Progress Note ---
Date of Service April 16, 2024 Assessment & Plan (1) Acute hypercapnic respiratory failure: Plan: Due to a combination of COPD exacerbation, obesity hypoventilation syndrome, likely sleep apnea Please see below (2) COPD with acute exacerbation: Plan: COPD with acute exacerbation Arrived on continuous BiPAP / at 40% VBG 7.36/75/54/42 On Rocephin/azithromycin on arrival for potential superimposed pneumonia with COPD exacerbation from outside hospital. on our labs and evaluation there is no leukocytosis, procalcitonin is negative, and chest x-ray with PA/lateral is without evidence of lobar pneumonia. Patient is with compensated pH with pCO2 of 75 and HCO3 of 42 suggesting severe chronic hypercapnia. Would benefit from PPV at bedtime Scattered wheezing on admission Patient received ceftriaxone, azithromycin, and 125 mg of methylprednisolone at approximately 6 AM on 04/14/2024 at OSH. Continue azithromycin, 40 mg methylprednisolone daily Flutter valve, incentive spirometry, SpO2 goal greater than 90%, BiPAP as needed. Trelegy converted to formulary equivalent Lactic acidosis resolved She reports that she has been a smoker of 1 pack/day, has recently cut down trying to quit. Nicotine patch ordered Patient is complaining of fluid overload with hand and feet swelling. Ordered a dose of Lasix 20 mg IV x 1 along with Diamox to 50 mg IV x 1 Monitor labs in a.m. (3) History of pulmonary embolism: Plan: History of PE. She is on Eliquis with which she is compliant and reports took her last dose morning of 04/14/2024 (4) DM2 (diabetes mellitus, type 2): Plan: Metforminheld Hyperglycemic. No insulin documented as given at OSH, did receive steroids Basal bolus insulin ordered with first dose of both at time of admit. Goal BSG [id number] Pharmacy glycemic consult placed for hyperglycemia with steroid use (5) Anxiety and depression: Plan: Continue bupropion/Lexapro Patient could not confirm that she takes gabapentin. It is not on her home med list. Plan DVT prophylaxis: Anticoagulated CODE STATUS: Full code Admission and Anticipated Discharge Date Admission Date: April 14, 2024 Subjective Patient feels well now. However she gets short of breath on exertion and her saturation drops. I have been informed that she has had recurrent hospitalizations due to COPD exacerbation at [facility] in the past. She still smokes. She has not had a sleep study done yet. Patient tells me that she feels bloated. Her arms and legs are swollen. Review of Systems Review of Systems: All systems reviewed & are unremarkable except as noted in Subjective Physical Exam Physical Exam: General: Awake, conversant. BiPAP mask on. Heart: S1, S2/regular rate and rhythm, no murmur rubs or gallops Lungs: Diminished breath sounds bilaterally. Minimal wheezing heard today. Normal effort. Abdomen: Soft/nontender/nondistended. No hepatosplenomegaly Extremities: No clubbing/cyanosis. No edema Behavior: Appropriate, cooperative Results & Data Results & Data Vital Signs (Past 12 Hours) Vital Signs Temp Pulse Pulse Resp BP Pulse Ox O2 Del Method 04/16/24 13:36 83 20 96 Nasal Cannula 04/16/24 11:25 36.9 C 96 H 22 161/77 H 94 BiPAP 04/16/24 09:13 88 22 95 04/16/24 09:11 92 H 22 95 BiPAP 04/16/24 07:44 36.8 C 90 26 H 119/65 92 BiPAP 04/16/24 07:04 90 20 94 BiPAP 04/16/24 07:00 85 04/16/24 04:11 92 H 27 H 93 04/16/24 02:27 36.8 C 91 H 22 127/71 95 BiPAP O2 Flow Rate FiO2 04/16/24 13:36 4 04/16/24 11:25 5.0 04/16/24 09:13 35 04/16/24 09:11 35 04/16/24 07:44 5 04/16/24 07:04 40 04/16/24 07:00 04/16/24 04:11 35 04/16/24 02:27 Laboratory Results Abnormal lab results 04/15/24 04/15/24 04/16/24 Range/Units 16:28 20:27 05:39 RBC 3.44 L (4.20-5.40) M/uL Hgb 9.6 L (12.0-16.0) g/dl Hct 31.3 L (37.0-47.0) % MCHC 30.7 L (32.0-36.0) g/dL RDW Std Deviation 53.8 H (36.4-46.3) fL RDW Coeff of Erica 16.3 H (11.5-14.5) % Neut # (Auto) 7.15 H (1.40-6.50) K/uL Lymph # (Auto) 1.12 L (1.20-3.40) K/uL Potassium 3.0 L (3.5-5.1) mmol/L Carbon Dioxide 41 H* (21-32) mmol/L BUN/Creatinine Ratio 24.4 H (10-20) Glucose 146 H (70-99(Fasting)) mg/dl POC Glucose 249 H 235 H (70-99) mg/dl Calcium 8.2 L (8.6-10.3) mg/dl Total Protein 5.9 L (6.0-8.3) gm/dl Globulin 2.4 L (2.5-4.0) gm/dl 04/16/24 04/16/24 Range/Units 07:30 11:35 RBC (4.20-5.40) M/uL Hgb (12.0-16.0) g/dl Hct (37.0-47.0) % MCHC (32.0-36.0) g/dL RDW Std Deviation (36.4-46.3) fL RDW Coeff of Erica (11.5-14.5) % Neut # (Auto) (1.40-6.50) K/uL Lymph # (Auto) (1.20-3.40) K/uL Potassium (3.5-5.1) mmol/L Carbon Dioxide (21-32) mmol/L BUN/Creatinine Ratio (10-20) Glucose (70-99(Fasting)) mg/dl POC Glucose 154 H 108 H (70-99) mg/dl Calcium (8.6-10.3) mg/dl Total Protein (6.0-8.3) gm/dl Globulin (2.5-4.0) gm/dl PG Care Time/CCT Total # of Minutes Spent Total Time Spent with Patient: Total time spent is greater than 50% in coordination of care (as documented) at patient's floor/unit and/or counseling patient: Coding Level of Care Code 91968 SUB INP/OBS CARE 2/35MIN Diagnoses Acute hypercapnic respiratory failure J96.02 COPD with acute exacerbation J44.1 History of pulmonary embolism Z86.711 DM2 (diabetes mellitus, type 2) E11.9 Anxiety and depression F41.9; F32.A
[2024-04-16] MEDS: FUROSEMIDE INJ 20 MG/2 ML VIAL IV ONE (14:24)
[2024-04-16] MEDS: acetaZOLAMIDE 250 MG in SYRINGE 0 ML IV STA (14:25)
[2024-04-16] MEDS: POTASSIUM CHLORIDE / WTR 10 MEQ/100 ML PLCT IV SCH (14:30)
[2024-04-16 18:08] LABS: Estimated Average Glucose 200 mg/dl; Hemoglobin A1C 8.6 % (4.5-5.6)
[2024-04-17 07:36] LABS: Basophils # (auto) 0.02 K/uL (0.00-0.20); Basophils % (auto) 0.2 %; Eosinophils # (auto) 0.13 K/uL (0.00-0.50); Eosinophils % (auto) 1.5 %; Hematocrit (blood only) 33.6 % (37.0-47.0); Hemoglobin 10.1 g/dl (12.0-16.0); Immature Granulocytes # (auto) 0.07 K/uL (0.01-0.20); Immature Granulocytes % (auto) 0.8 %; Lymphocytes # (auto) 1.06 K/uL (1.20-3.40); Lymphocytes % (auto) 12.5 %; Mean Corpuscular Hemoglobin 27.3 pg (25.0-34.0); Mean Corpuscular Hgb Conc 30.1 g/dL (32.0-36.0); Mean Corpuscular Volume 90.8 fL (80.0-100.0); Mean Platelet Volume 9.3 fL (9.4-12.4); Monocytes # (auto) 0.62 K/uL (0.11-0.59); Monocytes % (auto) 7.3 %; Neutrophils # (auto) 6.59 K/uL (1.40-6.50); Neutrophils % (auto) 77.7 %; Platelet Count 354 K/uL (130-400); RDW Coefficient of Variation 16.5 % (11.5-14.5); RDW Standard Deviation 54.6 fL (36.4-46.3); White Blood Count 8.49 K/ul (4.8-10.8)
[2024-04-17] MEDS: AZITHROMYCIN 250 MG TAB PO SCH (07:47)
[2024-04-17 07:48] LABS: Albumin Globulin Ratio 1.4 (0.9-2); Albumin Level 3.6 gm/dl (3.4-5.0); Bilirubin,Total 0.3 mg/dl (0.2-1.0); Calcium 8.5 mg/dl (8.6-10.3); Creatinine Clr Calc Pharmacy 79.1 ml/min; Est GFR (African American) 84.5 ml/min; Est GFR (Non-African American) 72.9 ml/min; Globulin 2.5 gm/dl (2.5-4.0); Potassium 3.3 mmol/L (3.5-5.1); Total Protein 6.1 gm/dl (6.0-8.3)
[2024-04-17] MEDS: ONDANSETRON INJ 2 MG/ML 2 ML VIAL IV PRN (08:55)
[2024-04-17] MEDS: POTASSIUM CHLORIDE CRTAB 20 MEQ TABCR PO STA ×2 (08:56→14:11)
--- NOTE | 2024-04-17 12:45 | XCELERA ---
[id number]
--- NOTE | 2024-04-17 13:07 | Hospitalist Progress Note ---
Date of Service April 17, 2024 Assessment & Plan (1) Acute hypercapnic respiratory failure: Plan: Due to a combination of COPD exacerbation, obesity hypoventilation syndrome, CHF exacerbation, likely sleep apnea Please see below (2) COPD with acute exacerbation: Plan: COPD with acute exacerbation Arrived on continuous BiPAP 10/ at 40% VBG 7.36/75/54/42 On Rocephin/azithromycin on arrival for potential superimposed pneumonia with COPD exacerbation from outside hospital. on our labs and evaluation there is no leukocytosis, procalcitonin is negative, and chest x-ray with PA/lateral is without evidence of lobar pneumonia. Patient is with compensated pH with pCO2 of 75 and HCO3 of 42 suggesting severe chronic hypercapnia. Would benefit from PPV at bedtime Scattered wheezing on admission Patient received ceftriaxone, azithromycin, and 125 mg of methylprednisolone at approximately 6 AM on 04/14/2024 at OSH. Continue azithromycin Switch from IV Solu-Medrol to p.o. prednisone Flutter valve, incentive spirometry, SpO2 goal greater than 90%, BiPAP as needed. Trelegy converted to formulary equivalent Lactic acidosis resolved She reports that she has been a smoker of 1 pack/day, has recently cut down trying to quit. Nicotine patch ordered Monitor labs in a.m. (3) Acute diastolic CHF (congestive heart failure): Plan: Possibly contributing to respiratory failure Was treated with IV Lasix 20 mg and IV Diamox to 50 mg x 1 yesterday 04/16 Had very good diuretic and clinical response Will give her diuretics again today: Lasix and Diamox Echocardiogram showed normal EF (4) History of pulmonary embolism: Plan: History of PE. She is on Eliquis with which she is compliant and reports took her last dose morning of 04/14/2024 (5) DM2 (diabetes mellitus, type 2): Plan: Metformin held Hyperglycemic. No insulin documented as given at OSH, did receive steroids Basal bolus insulin ordered with first dose of both at time of admit. Goal BSG [id number] Pharmacy glycemic consult placed for hyperglycemia with steroid use A1c 8.5 (6) Anxiety and depression: Plan: Continue bupropion/Lexapro Patient could not confirm that she takes gabapentin. It is not on her home med list. (7) Metabolic alkalosis: Plan: Likely due to a compensation of respiratory acidosis from COPD and likely sleep apnea Lasix will make it worse Thus using in combination with Diamox Treat hypokalemia Plan DVT prophylaxis: Anticoagulated CODE STATUS: Full code Admission and Anticipated Discharge Date Admission Date: April 14, 2024 Subjective Per nurse, patient has been getting short of breath on exertion. Review of Systems Review of Systems: All systems reviewed & are unremarkable except as noted in Subjective Physical Exam 2 Physical Exam: General: Awake, conversant. Back on her nasal cannula Heart: S1, S2/regular rate and rhythm, no murmur rubs or gallops Lungs: Diminished breath sounds bilaterally. Minimal wheezing heard today. Normal effort. Abdomen: Soft/nontender/nondistended. No hepatosplenomegaly Extremities: No clubbing/cyanosis. No edema Behavior: Appropriate, cooperative Results & Data Results & Data Vital Signs (Past 12 Hours) Vital Signs Temp Pulse Pulse Resp BP Pulse Ox O2 Del Method 04/17/24 11:41 36.5 C 107 H 21 151/81 H 90 Nasal Cannula 04/17/24 08:00 Nasal Cannula 04/17/24 07:15 36.5 C 99 H 22 165/80 H 92 Nasal Cannula 04/17/24 07:00 73 04/17/24 06:49 97 H 26 H 92 Nasal Cannula 04/17/24 03:34 83 18 96 04/17/24 02:16 36.7 C 94 H 22 130/71 94 BiPAP O2 Flow Rate FiO2 04/17/24 11:41 4.5 04/17/24 08:00 4 04/17/24 07:15 4 04/17/24 07:00 04/17/24 06:49 4 04/17/24 03:34 35 04/17/24 02:16 Laboratory Results Abnormal lab results 04/16/24 04/16/24 04/17/24 Range/Units 05:39 16:32 06:33 RBC 3.70 L (4.20-5.40) M/uL Hgb 10.1 L (12.0-16.0) g/dl Hct 33.6 L (37.0-47.0) % MCHC 30.1 L (32.0-36.0) g/dL RDW Std Deviation 54.6 H (36.4-46.3) fL RDW Coeff of Erica 16.5 H (11.5-14.5) % MPV 9.3 L (9.4-12.4) fL Neut # (Auto) 6.59 H (1.40-6.50) K/uL Lymph # (Auto) 1.06 L (1.20-3.40) K/uL [place] # (Auto) 0.62 H (0.11-0.59) K/uL Potassium 3.3 L (3.5-5.1) mmol/L Carbon Dioxide 35 H (21-32) mmol/L POC Glucose 163 H (70-99) mg/dl Hemoglobin A1c 8.6 H (4.5-5.6) % Calcium 8.5 L (8.6-10.3) mg/dl 04/17/24 04/17/24 Range/Units 07:17 11:28 RBC (4.20-5.40) M/uL Hgb (12.0-16.0) g/dl Hct (37.0-47.0) % MCHC (32.0-36.0) g/dL RDW Std Deviation (36.4-46.3) fL RDW Coeff of Erica (11.5-14.5) % MPV (9.4-12.4) fL Neut # (Auto) (1.40-6.50) K/uL Lymph # (Auto) (1.20-3.40) K/uL [place] # (Auto) (0.11-0.59) K/uL Potassium (3.5-5.1) mmol/L Carbon Dioxide (21-32) mmol/L POC Glucose 109 H 160 H (70-99) mg/dl Hemoglobin A1c (4.5-5.6) % Calcium (8.6-10.3) mg/dl PG Care Time/CCT Total # of Minutes Spent Total Time Spent with Patient: Total time spent is greater than 50% in coordination of care (as documented) at patient's floor/unit and/or counseling patient: Coding Level of Care Code 59045 SUB INP/OBS CARE 2/35MIN Diagnoses Acute hypercapnic respiratory failure J96.02 COPD with acute exacerbation J44.1 Acute diastolic CHF (congestive heart failure) I50.31 History of pulmonary embolism Z86.711 DM2 (diabetes mellitus, type 2) E11.9 Anxiety and depression F41.9; F32.A Metabolic alkalosis E87.3
[2024-04-17] MEDS: acetaZOLAMIDE 250 MG in SYRINGE 0 ML IV STA (13:39)
[2024-04-17] MEDS: POTASSIUM CHLORIDE 20 MEQ/15 ML UDC PO STA (13:39)
[2024-04-17] MEDS: FUROSEMIDE INJ 20 MG/2 ML VIAL IV ONE (13:42)
[2024-04-18 06:10] LABS: Basophils # (auto) 0.03 K/uL (0.00-0.20); Basophils % (auto) 0.3 %; Eosinophils # (auto) 0.15 K/uL (0.00-0.50); Eosinophils % (auto) 1.6 %; Hemoglobin 10.3 g/dl (12.0-16.0); Immature Granulocytes # (auto) 0.12 K/uL (0.01-0.20); Immature Granulocytes % (auto) 1.3 %; Lymphocytes # (auto) 1.26 K/uL (1.20-3.40); Lymphocytes % (auto) 13.5 %; Mean Corpuscular Hemoglobin 27.6 pg (25.0-34.0); Mean Corpuscular Hgb Conc 30.3 g/dL (32.0-36.0); Mean Corpuscular Volume 91.2 fL (80.0-100.0); Mean Platelet Volume 9.2 fL (9.4-12.4); Monocytes # (auto) 0.77 K/uL (0.11-0.59); Monocytes % (auto) 8.3 %; Neutrophils # (auto) 6.97 K/uL (1.40-6.50); Platelet Count 371 K/uL (130-400); RDW Coefficient of Variation 16.5 % (11.5-14.5); Red Blood Count 3.73 M/uL (4.20-5.40)
[2024-04-18 06:19] LABS: BUN Creatinine Ratio 19.8 (10-20); Calcium 8.5 mg/dl (8.6-10.3); Creatinine Clr Calc Pharmacy 62.5 ml/min; Est GFR (African American) 63.8 ml/min; Est GFR (Non-African American) 55.1 ml/min; Potassium 3.7 mmol/L (3.5-5.1)
[2024-04-18] MEDS: predniSONE 20 MG TAB PO SCH (08:18)
--- NOTE | 2024-04-18 11:30 | Hospitalist Progress Note ---
Date of Service April 18, 2024 Assessment & Plan (1) Acute hypercapnic respiratory failure: Plan: Due to a combination of COPD exacerbation, obesity hypoventilation syndrome, CHF exacerbation, likely sleep apnea Please see below (2) COPD with acute exacerbation: Plan: COPD with acute exacerbation Arrived on continuous BiPAP / at 40% VBG 7.36/75/54/42 On Rocephin/azithromycin on arrival for potential superimposed pneumonia with COPD exacerbation from outside hospital. on our labs and evaluation there is no leukocytosis, procalcitonin is negative, and chest x-ray with PA/lateral is without evidence of lobar pneumonia. Patient is with compensated pH with pCO2 of 75 and HCO3 of 42 suggesting severe chronic hypercapnia. Would benefit from PPV at bedtime Scattered wheezing on admission Patient received ceftriaxone, azithromycin, and 125 mg of methylprednisolone at approximately 6 AM on 04/14/2024 at OSH. Continue azithromycin Switched from IV Solu-Medrol to p.o. prednisone Flutter valve, incentive spirometry, SpO2 goal greater than 90%, BiPAP as needed. Trelegy converted to formulary equivalent Lactic acidosis resolved She reports that she has been a smoker of 1 pack/day, has recently cut down trying to quit. Nicotine patch ordered Monitor labs in a.m. (3) Acute diastolic CHF (congestive heart failure): Plan: Possibly contributing to respiratory failure Was treated with IV Lasix 20 mg and IV Diamox 250 mg x 1 on 04/16, 04/17 Had very good diuretic and clinical response Will give her diuretics again today: Lasix and Diamox Echocardiogram showed normal EF Patient is still short of breath with minimal activity. She needs to be diuresed further. (4) History of pulmonary embolism: Plan: History of PE. She is on Eliquis with which she is compliant and reports took her last dose morning of 04/14/2024 (5) DM2 (diabetes mellitus, type 2): Plan: Metformin held Hyperglycemic. No insulin documented as given at OSH, did receive steroids Basal bolus insulin ordered with first dose of both at time of admit. Goal BSG [id number] Pharmacy glycemic consult placed for hyperglycemia with steroid use A1c 8.5 (6) Anxiety and depression: Plan: Continue bupropion/Lexapro Patient could not confirm that she takes gabapentin. It is not on her home med list. (7) Metabolic alkalosis: Plan: Likely due to a compensation of respiratory acidosis from COPD and likely sleep apnea Lasix will make it worse Thus using in combination with Diamox Treat hypokalemia Plan DVT prophylaxis: Anticoagulated CODE STATUS: Full code Admission and Anticipated Discharge Date Admission Date: April 14, 2024 Subjective Patient had a very good diuretic response yesterday and the day before to IV Diamox and IV Lasix. Per nurse, she still gets very winded with minimal exertion. Review of Systems Review of Systems: All systems reviewed & are unremarkable except as noted in Subjective Physical Exam Physical Exam: General: Awake, conversant. On nasal cannula Heart: S1, S2/regular rate and rhythm, no murmur rubs or gallops Lungs: Diminished breath sounds bilaterally. No wheezing heard today. Normal effort. Abdomen: Soft/nontender/nondistended. No hepatosplenomegaly Extremities: No clubbing/cyanosis. Trace bilateral edema Behavior: Appropriate, cooperative Results & Data Results & Data Vital Signs (Past 12 Hours) Vital Signs Temp Pulse Pulse Resp BP Pulse Ox O2 Del Method 04/18/24 10:18 36.7 C 88 20 128/75 93 Nasal Cannula 04/18/24 08:00 96 H 04/18/24 08:00 Nasal Cannula 04/18/24 07:23 36.4 C L 85 21 137/78 93 Nasal Cannula 04/18/24 07:00 83 18 91 Nasal Cannula 04/18/24 05:45 91 H 22 93 Nasal Cannula 04/18/24 04:00 79 17 96 04/18/24 03:22 36.7 C 91 H 18 130/70 94 BiPAP 04/18/24 00:00 88 24 97 BiPAP 04/17/24 23:55 83 16 98 O2 Flow Rate FiO2 04/18/24 10:18 4 04/18/24 08:00 04/18/24 08:00 04/18/24 07:23 4 04/18/24 07:00 4 04/18/24 05:45 4 04/18/24 04:00 35 04/18/24 03:22 04/18/24 00:00 35 04/17/24 23:55 35 Laboratory Results Abnormal lab results 04/17/24 04/17/24 04/18/24 Range/Units 16:26 20:16 05:41 RBC 3.73 L (4.20-5.40) M/uL Hgb 10.3 L (12.0-16.0) g/dl Hct 34.0 L (37.0-47.0) % MCHC 30.3 L (32.0-36.0) g/dL RDW Std Deviation 55.0 H (36.4-46.3) fL RDW Coeff of Erica 16.5 H (11.5-14.5) % MPV 9.2 L (9.4-12.4) fL Neut # (Auto) 6.97 H (1.40-6.50) K/uL [place] # (Auto) 0.77 H (0.11-0.59) K/uL Glucose 106 H (70-99(Fasting)) mg/dl POC Glucose 221 H 128 H (70-99) mg/dl Calcium 8.5 L (8.6-10.3) mg/dl 04/18/24 04/18/24 Range/Units 07:21 11:26 RBC (4.20-5.40) M/uL Hgb (12.0-16.0) g/dl Hct (37.0-47.0) % MCHC (32.0-36.0) g/dL RDW Std Deviation (36.4-46.3) fL RDW Coeff of Erica (11.5-14.5) % MPV (9.4-12.4) fL Neut # (Auto) (1.40-6.50) K/uL [place] # (Auto) (0.11-0.59) K/uL Glucose (70-99(Fasting)) mg/dl POC Glucose 113 H 157 H (70-99) mg/dl Calcium (8.6-10.3) mg/dl PG Care Time/CCT Total # of Minutes Spent Total Time Spent with Patient: Total time spent is greater than 50% in coordination of care (as documented) at patient's floor/unit and/or counseling patient: Coding Level of Care Code 43685 SUB INP/OBS CARE 2/35MIN Diagnoses Acute hypercapnic respiratory failure J96.02 COPD with acute exacerbation J44.1 Acute diastolic CHF (congestive heart failure) I50.31 History of pulmonary embolism Z86.711 DM2 (diabetes mellitus, type 2) E11.9 Anxiety and depression F41.9; F32.A Metabolic alkalosis E87.3
[2024-04-18] MEDS: acetaZOLAMIDE 250 MG in SYRINGE 0 ML IV STA (12:46)
[2024-04-18] MEDS: FUROSEMIDE INJ 20 MG/2 ML VIAL IV ONE (13:06)
[2024-04-19 06:34] LABS: Basophils # (auto) 0.03 K/uL (0.00-0.20); Basophils % (auto) 0.3 %; Eosinophils # (auto) 0.14 K/uL (0.00-0.50); Eosinophils % (auto) 1.6 %; Hematocrit (blood only) 33.3 % (37.0-47.0); Hemoglobin 10.2 g/dl (12.0-16.0); Immature Granulocytes # (auto) 0.07 K/uL (0.01-0.20); Immature Granulocytes % (auto) 0.8 %; Lymphocytes # (auto) 1.22 K/uL (1.20-3.40); Lymphocytes % (auto) 13.9 %; Mean Corpuscular Hemoglobin 27.6 pg (25.0-34.0); Mean Corpuscular Hgb Conc 30.6 g/dL (32.0-36.0); Mean Corpuscular Volume 90.2 fL (80.0-100.0); Mean Platelet Volume 9.3 fL (9.4-12.4); Neutrophils # (auto) 6.61 K/uL (1.40-6.50); Neutrophils % (auto) 75.4 %; Platelet Count 331 K/uL (130-400); RDW Coefficient of Variation 16.4 % (11.5-14.5); RDW Standard Deviation 54.6 fL (36.4-46.3); Red Blood Count 3.69 M/uL (4.20-5.40); White Blood Count 8.77 K/ul (4.8-10.8)
[2024-04-19 06:58] LABS: BUN Creatinine Ratio 23.4 (10-20); Calcium 8.2 mg/dl (8.6-10.3); Creatinine Clr Calc Pharmacy 59.7 ml/min; Est GFR (African American) 60.4 ml/min; Est GFR (Non-African American) 52.1 ml/min; Potassium 3.3 mmol/L (3.5-5.1)
[2024-04-19] MEDS: POTASSIUM CHLORIDE 20 MEQ/15 ML UDC PO STA (08:18)
[2024-04-19] MEDS: predniSONE 10 MG TABLET PO SCH (08:21)
[2024-04-19] MEDS: FUROSEMIDE 40 MG TAB PO SCH (08:21)
--- NOTE | 2024-04-19 11:45 | Hospitalist Progress Note ---
Date of Service April 19, 2024 Assessment & Plan (1) Acute hypercapnic respiratory failure: Plan: Due to a combination of COPD exacerbation, obesity hypoventilation syndrome, CHF exacerbation, likely sleep apnea Please see below (2) COPD with acute exacerbation: Plan: COPD with acute exacerbation Arrived on continuous BiPAP 08/23 at 40% VBG 7.36/75/54/42 On Rocephin/azithromycin on arrival for potential superimposed pneumonia with COPD exacerbation from outside hospital. on our labs and evaluation there is no leukocytosis, procalcitonin is negative, and chest x-ray with PA/lateral is without evidence of lobar pneumonia. Patient is with compensated pH with pCO2 of 75 and HCO3 of 42 suggesting severe chronic hypercapnia. Would benefit from PPV at bedtime Scattered wheezing on admission Patient received ceftriaxone, azithromycin, and 125 mg of methylprednisolone at approximately 6 AM on 04/14/2024 at OSH. Completed course of azithromycin Switched from IV Solu-Medrol to p.o. prednisone. Lowered the dose of prednisone to 30 mg Flutter valve, incentive spirometry, SpO2 goal greater than 90%, BiPAP as needed. Trelegy converted to formulary equivalent Lactic acidosis resolved She reports that she has been a smoker of 1 pack/day, has recently cut down trying to quit. Nicotine patch ordered (3) Acute diastolic CHF (congestive heart failure): Plan: Possibly contributing to respiratory failure Was treated with IV Lasix 20 mg and IV Diamox 250 mg x 1 on 04/16, 04/17, 04/18 Had very good diuretic and clinical response Will start her on her p.o. Lasix. She normally takes 80 mg of Lasix twice daily. Will start on half the dose at 40 mg p.o. Lasix twice daily Recheck labs in a.m. Echocardiogram showed normal EF Patient is still short of breath with activity but improving. She needs to be diuresed further. (4) History of pulmonary embolism: Plan: History of PE. She is on Eliquis with which she is compliant and reports took her last dose morning of 04/14/2024 (5) DM2 (diabetes mellitus, type 2): Plan: Metformin held Hyperglycemic. No insulin documented as given at OSH, did receive steroids Basal bolus insulin ordered with first dose of both at time of admit. Goal BSG [id number] Pharmacy glycemic consult placed for hyperglycemia with steroid use A1c 8.5 (6) Anxiety and depression: Plan: Continue bupropion/Lexapro Patient could not confirm that she takes gabapentin. It is not on her home med list. (7) Metabolic alkalosis: Plan: Likely due to a compensation of respiratory acidosis from COPD and likely sleep apnea Lasix will make it worse Thus using in combination with Diamox Treat hypokalemia Resolved Plan DVT prophylaxis: Anticoagulated CODE STATUS: Full code Likely discharge tomorrow Admission and Anticipated Discharge Date Admission Date: April 14, 2024 Subjective Patient tells me that her breathing on exertion is improving. Review of Systems Review of Systems: All systems reviewed & are unremarkable except as noted in Subjective Physical Exam Physical Exam: General: Awake, conversant. On nasal cannula Heart: S1, S2/regular rate and rhythm, no murmur rubs or gallops Lungs: Diminished breath sounds bilaterally. No wheezing heard today. Normal effort. Abdomen: Soft/nontender/nondistended. No hepatosplenomegaly Extremities: No clubbing/cyanosis. Trace bilateral edema Behavior: Appropriate, cooperative Results & Data Results & Data Vital Signs (Past 12 Hours) Vital Signs Temp Pulse Pulse Resp BP Pulse Ox O2 Del Method 04/19/24 07:12 36.4 C L 93 H 20 111/64 93 Nasal Cannula 04/19/24 06:52 81 16 93 Nasal Cannula 04/19/24 03:24 36.5 C 91 H 17 131/81 96 BiPAP 04/19/24 03:23 81 18 96 04/19/24 00:30 80 20 97 04/18/24 23:56 36.4 C L 83 20 132/75 95 Nasal Cannula O2 Flow Rate FiO2 04/19/24 07:12 4 04/19/24 06:52 4 04/19/24 03:24 04/19/24 03:23 35 04/19/24 00:30 35 04/18/24 23:56 4 Laboratory Results Abnormal lab results 04/18/24 04/18/24 04/19/24 Range/Units 16:27 20:12 05:34 RBC 3.69 L (4.20-5.40) M/uL Hgb 10.2 L (12.0-16.0) g/dl Hct 33.3 L (37.0-47.0) % MCHC 30.6 L (32.0-36.0) g/dL RDW Std Deviation 54.6 H (36.4-46.3) fL RDW Coeff of Erica 16.4 H (11.5-14.5) % MPV 9.3 L (9.4-12.4) fL Neut # (Auto) 6.61 H (1.40-6.50) K/uL Will # (Auto) 0.70 H (0.11-0.59) K/uL Potassium 3.3 L (3.5-5.1) mmol/L BUN 26 H (6-23) mg/dl BUN/Creatinine Ratio 23.4 H (10-20) POC Glucose 144 H 133 H (70-99) mg/dl Calcium 8.2 L (8.6-10.3) mg/dl 04/19/24 Range/Units 11:23 RBC (4.20-5.40) M/uL Hgb (12.0-16.0) g/dl Hct (37.0-47.0) % MCHC (32.0-36.0) g/dL RDW Std Deviation (36.4-46.3) fL RDW Coeff of Erica (11.5-14.5) % MPV (9.4-12.4) fL Neut # (Auto) (1.40-6.50) K/uL Will # (Auto) (0.11-0.59) K/uL Potassium (3.5-5.1) mmol/L BUN (6-23) mg/dl BUN/Creatinine Ratio (10-20) POC Glucose 172 H (70-99) mg/dl Calcium (8.6-10.3) mg/dl PG Care Time/CCT Total # of Minutes Spent Total Time Spent with Patient: Total time spent is greater than 50% in coordination of care (as documented) at patient's floor/unit and/or counseling patient: Coding Level of Care Code 98449 SUB INP/OBS CARE 2/35MIN Diagnoses Acute hypercapnic respiratory failure J96.02 COPD with acute exacerbation J44.1 Acute diastolic CHF (congestive heart failure) I50.31 History of pulmonary embolism Z86.711 DM2 (diabetes mellitus, type 2) E11.9 Anxiety and depression F41.9; F32.A Metabolic alkalosis E87.3
[2024-04-19] MEDS: DICLOFENAC SOD 1% GEL 100 GM TUBE EXT SCH (23:24)
[2024-04-20 06:30] LABS: Basophils # (auto) 0.03 K/uL (0.00-0.20); Basophils % (auto) 0.3 %; Eosinophils # (auto) 0.12 K/uL (0.00-0.50); Eosinophils % (auto) 1.2 %; Hematocrit (blood only) 34.3 % (37.0-47.0); Hemoglobin 10.6 g/dl (12.0-16.0); Immature Granulocytes # (auto) 0.09 K/uL (0.01-0.20); Immature Granulocytes % (auto) 0.9 %; Lymphocytes # (auto) 1.45 K/uL (1.20-3.40); Lymphocytes % (auto) 14.8 %; Mean Corpuscular Hemoglobin 27.7 pg (25.0-34.0); Mean Corpuscular Hgb Conc 30.9 g/dL (32.0-36.0); Mean Corpuscular Volume 89.8 fL (80.0-100.0); Mean Platelet Volume 9.3 fL (9.4-12.4); Monocytes # (auto) 0.84 K/uL (0.11-0.59); Monocytes % (auto) 8.5 %; Neutrophils % (auto) 74.3 %; Platelet Count 365 K/uL (130-400); RDW Coefficient of Variation 16.6 % (11.5-14.5); RDW Standard Deviation 53.6 fL (36.4-46.3); Red Blood Count 3.82 M/uL (4.20-5.40); White Blood Count 9.83 K/ul (4.8-10.8)
[2024-04-20 07:05] LABS: BUN Creatinine Ratio 22.9 (10-20); Calcium 8.2 mg/dl (8.6-10.3); Creatinine Clr Calc Pharmacy 56.2 ml/min; Est GFR (Non-African American) 48.4 ml/min; Potassium 3.5 mmol/L (3.5-5.1)
[2024-04-20] MEDS ORDERED: DICLOFENAC SOD 1% GEL 100 GM TUBE EXT SCH (09:00)
--- NOTE | 2024-04-20 11:16 | Discharge Summary ---
Date of Service April 20, 2024 Admission HPI Per Admitting Provider Edna is a 63-year-old female who was accepted as a transfer overnight from [facility] for acute COPD exacerbation. Do not have records available for review. Did call [facility] day of transfer to review case. Per nursing report patient is 63-year-old with a history of chronic hypoxic respiratory failure, past PE on Eliquis who presented with 2 days of increased cough and shortness of breath. She required BiPAP at 10/535%. COVID/Flu negative. Suspected AoC COPD exacerbation. They are not able to keep patients on BiPAP at that facility and so was recommended for transfer to our facility. At time of morning signout patient blood pressure had improved from 96/76 to 116/64. Lactate was 2.6 initially, repeat 2.2 at 905. BNP 91, high sensitive troponin 21. COVID and flu were negative. Chest x-ray was pending. Patient was on empiric ceftriaxone/azithromycin. Complete records pending fax for review Per Record Review: Past medical history: COPD Past medications reviewed: Albuterol, bupropion 300 mg XL daily, Eliquis 5 mg twice daily, Lexapro 20 mg daily, Lasix 80 mg twice daily, melatonin 3 mg nightly, metformin 500 mg twice daily, prednisone 40 mg daily with unclear duration/taper, Trelegy 100 mcg62.5 mcg - 25 mcg/puff, 1 inhalation daily Approximate 1 pack/day cigarette use x 50 years. No reported alcohol use 63yo F who presented to [facility] with 2 days of progressive dyspnea without chest pain, fever, or chills. Past hx of COPD on Trelegy/albuterol and chronic home oxygen, DVT/PE on eliquis and anxiety/depression. EKG at [place]: Rate 87, sinus, no ST/T changes. CXR: Suspected right lower lobe infiltrate on CXR, given rocephin and azithromycin in ER. Pt clinically improved following abx and fluids, but still required 10/5 35% bipap. Pt declined [place], preferred [place] ot [facility]. [place] with no capacity. Confirmed patient recieved AM meds including eliquis 5mg, and rocephin/azithromycin at ~0600am 04/14/24. Per Patient: Seen at bedside. On continuous bipap. NOndistressed. 114/41, 84bpm, 95% on 08/23 @ 40% at bedside asessment. BSG POC 314. 93.7kg She reports that she had around 2 or 3 days of increased cough, shortness of breath, and dark sputum production. Endorses wheezing. She denies fever, chills, sweats. No lightheadedness/dizziness. She has been taking her blood thinner for a past PE, she reports she took a dose of this this morning. She has not had any pain with breathing. Denies chest pain. She reports she feels greatly improved at time of bedside assessment on BiPAP. She endorses history of COPD. She is a somewhat poor historian of her meds, but endorses that she takes albuterol, Eliquis, bupropion, cetirizine, Lexapro, Trelegy, Lasix, metformin at home. She is not sure if she has a history of heart failure or not but she does take Lasix twice daily at home. Denies alcohol use Medical History: Reviewed Medications: Reviewed Surgical History: Reviewed Family history: Reviewed Allergies: Reviewed Social: No alcohol. Endorses that she was around 10 cigarettes to pack per day tobacco user, has cut down and stop smoking since being sick. Would like a patch Code Status: Full Admission Exam Per Admitting Provider General: A&Ox3. NAD. Cooperative. HEENT: Atraumatic, normocephalic. Vision/hearing intact Pulm: On BiPAP. Diminished with diffuse wheezes symmetrical chest rise. No increased work of breathing. No respiratory distress. Cardiac: RRR, -mrg. Radial pulses intact and symmetrical. Abdominal: Softly distended. Nontender. No rebound/guarding Principal Diagnosis Acute hypercapnic hypoxic respiratory failure due to a combination of COPD exacerbation, CHF exacerbation, likely sleep apnea, obesity hypoventilation syndrome COPD exacerbation. Being discharged on prednisone taper Acute diastolic CHF exacerbation. Being discharged on p.o. Lasix Likely sleep apnea. Advised to pursue sleep study Discharge Exam General: Awake, conversant. On nasal cannula Heart: S1, S2/regular rate and rhythm, no murmur rubs or gallops Lungs: Diminished breath sounds bilaterally. No wheezing heard today. Normal effort. Abdomen: Soft/nontender/nondistended. No hepatosplenomegaly Extremities: No clubbing/cyanosis. Trace bilateral edema Behavior: Appropriate, cooperative Discharge Data Allergies Allergy/AdvReac Type Severity Reaction Status Date / Time venom-honey bee Allergy Itching Verified 04/14/24 13:08 Hospital Course (1) Acute hypercapnic respiratory failure: Due to a combination of COPD exacerbation, obesity hypoventilation syndrome, CHF exacerbation, likely sleep apnea Please see below (2) COPD with acute exacerbation: COPD with acute exacerbation Arrived on continuous BiPAP 08/23 at 40% VBG 7.36/75/54/42 On Rocephin/azithromycin on arrival for potential superimposed pneumonia with COPD exacerbation from outside hospital. on our labs and evaluation there is no leukocytosis, procalcitonin is negative, and chest x-ray with PA/lateral is without evidence of lobar pneumonia. Patient is with compensated pH with pCO2 of 75 and HCO3 of 42 suggesting severe chronic hypercapnia. Would benefit from PPV at bedtime Scattered wheezing on admission, now resolved Patient received ceftriaxone, azithromycin, and 125 mg of methylprednisolone at approximately 6 AM on 04/14/2024 at OSH. Completed course of azithromycin Switched from IV Solu-Medrol to p.o. prednisone. Discharged on tapering dose of irbesartan Trelegy converted to formulary equivalent Lactic acidosis resolved She reports that she has been a smoker of 1 pack/day, has recently cut down trying to quit. Nicotine patch ordered (3) Acute diastolic CHF (congestive heart failure): Possibly contributing to respiratory failure Was treated with IV Lasix 20 mg and IV Diamox 250 mg x 1 on 04/16, 04/17, 04/18 Had very good diuretic and clinical response Will start her on her p.o. Lasix. She normally takes 80 mg of Lasix twice daily. Started on half the dose at 40 mg p.o. Lasix twice daily. Did well on 40 mg p.o. twice daily overnight. Will discharge her on the same dose Echocardiogram showed normal EF Patient is not short of breath on exertion today. Will discharge her today (4) History of pulmonary embolism: History of PE. She is on Eliquis with which she is compliant and reports took her last dose morning of 04/14/2024 (5) DM2 (diabetes mellitus, type 2): Metformin resumed at the time of discharge Hyperglycemic. No insulin documented as given at OSH, did receive steroids Goal BSG [id number] Pharmacy glycemic consult placed for hyperglycemia with steroid use A1c 8.5 (6) Anxiety and depression: Continue bupropion/Lexapro Patient could not confirm that she takes gabapentin. It is not on her home med list. (7) Metabolic alkalosis: Likely due to a compensation of respiratory acidosis from COPD and likely sleep apnea Lasix will make it worse Thus using in combination with Diamox Treat hypokalemia Resolved Plan Discharge to home today Total Time Total Time Spent Total Time Spent (In Minutes): 35 Discharge Plan Discharge Items Patient Disposition: Home - Self-Care Reason For Visit: HYPOXIC RESPIRATORY FAILURE, AOC COPD Discharge Diagnosis: Acute hypercapnic hypoxic respiratory failure due to a combination of COPD exacerbation, CHF exacerbation, likely sleep apnea, obesity hypoventilation syndrome COPD exacerbation. Being discharged on prednisone taper Acute diastolic CHF exacerbation. Being discharged on p.o. Lasix Likely sleep apnea. Advised to pursue sleep study Activity: Resume your previous activity Non-emergency contact: Primary Care Provider Call non-emergency contact if: you have any medication questions and your symptoms worsen Follow-up/Referrals: PCP,NO [Primary Care Provider] - Diet: Carb Consistent or DM2, Heart Healthy and Low Sodium (2gm) Addtl Attending Provider Instructions: Advised to follow-up with PCP in 1 week Advised to note that you need your sleep study completed Advised on smoking cessation Advised on medication compliance Pending Studies at Discharge: No Stand-Alone Forms: My [facility], Smoking Cessation Medications and DC Order Prescriptions: New prednisone 10 mg tablet 10 mg PO DAILY Qty: 6 0RF Rx Instructions: 2 tabs for 2 days, then 1 tab for 2 days, then stop furosemide 40 mg Tablet 40 mg PO BID17 Qty: 60 0RF Continued metformin 500 mg tablet 500 mg PO BID cetirizine 10 mg tablet 10 mg PO DAILY melatonin 3 mg tablet 3 mg PO HS PRN (Reason: Sleep) albuterol sulfate 90 mcg/actuation HFA aerosol inhaler 1 puff INHALATION Q6H PRN (Reason: Wheezing) escitalopram oxalate 20 mg tablet 20 mg PO DAILY bupropion HCl 300 mg tablet extended release 24 hr 300 mg PO DAILY Eliquis 5 mg tablet 5 mg PO BID Trelegy Ellipta 100-62.5-25 mcg blister with device 1 inh INHALATION DAILY Held furosemide 80 mg tablet 80 mg PO BID Hold Instructions: Resume on 04/27/24. until seen by PCP Discharge Orders: Discharge Order (Routine); Ordered 04/20/24 Ordered By: Joce Murillo/Other Patient Handouts: Managing Type 2 Diabetes, Diabetes: Meal Planning Admission Data Admit Date/Time: 04/14/24 11:00 Attending Provider: Joce Murray Admit Provider: Jet Gregory Primary Care Provider: PCP,NO Other Providers: [facility],Home [facility] Other Interventions: Discharge Summary Assessment (RN) Last Done: 04/20/24 11:05 Coding Level of Care Code 71625 INP/OBS DISCH >30 MIN Diagnoses Acute hypercapnic respiratory failure J96.02 COPD with acute exacerbation J44.1 Acute diastolic CHF (congestive heart failure) I50.31 History of pulmonary embolism Z86.711 DM2 (diabetes mellitus, type 2) E11.9 Anxiety and depression F41.9; F32.A Metabolic alkalosis E87.3
== END 2024-04-20 14:44 | disposition home health service (06) | DRG 189 ==
LOC: 2E 12:42 → SUATTDRO 12:42